=== PATIENT | female | born 1980 | race Caucasian/White ===

== ENCOUNTER 2019-10-08 17:12 | Emergency (ER) | payer OTHER, SELFPAY ==
[2019-10-08 17:28] VITALS: BP 154/98; PULSE 95; RESP 20; TEMP 36.4; O2SAT 94; BMI 51.2
--- NOTE | 2019-10-08 17:34 | XR_ITS ---
WS: [id number] Portable AP upright chest, 10/08/2019 Clinical Data: chest pain Comparison: Portable chest, 07/12/2019. Findings: No nodules, masses or effusions are seen. The heart is slightly enlarged. The pulmonary vas cularity is not increased. No pneumonia or pneumothorax is seen. Minimal patchy basilar atelectasis i s seen. XR/XR chest 1V portable [id number] Impression: Mild cardiomegaly and minimal bibasilar atelectasis.
--- NOTE | 2019-10-08 17:34 | ECG_ITS ---
Measurements Intervals [place] Rate: 98 P: 34 NE: 176 QRS: 41 QRSD: 103 T: 40 QT: 357 QTc: 456 SINUS RHYTHM LOW QRS VOLTAGE IN PRECORDIAL LEADS [QRS DEFLECTION < 1.0 mV IN CHEST LEADS] Compared to ECG 07/13/2019 04:00:02 Low QRS voltage now present Electronically Signed On 10-08-2019 20:07:28 MANUFACTURING SUPERVISOR 2ND SHIFT by Snehal House M.D. [email or web address]
[2019-10-08 18:03] LABS: Basophils # 0.1 10^3/uL (0.0-0.1); Basophils % 0.8 %; Eosinophils # 0.3 10^3/uL (0.0-0.8); Eosinophils % 1.6 %; Hematocrit 42.9 % (37.0-47.0); Hemoglobin 13.9 g/dL (11.5-15.3); Lymphocytes # 3.2 10^3/uL (0.8-4.8); Lymphocytes % 20.7 %; Mean Corpuscular HGB Conc 32.4 g/dL (30.0-36.0); Mean Corpuscular Hemoglobin 27.1 pg (28.0-34.0); Mean Corpuscular Volume 83.6 fL (81-99); Mean Platelet Volume 10.6 fL (7.4-10.4); Monocytes # 0.9 10^3/uL (0.2-0.9); Monocytes % 5.6 %; Neutrophils # 10.9 10^3/uL (1.8-7.7); Neutrophils % 69.8 %; Nucleated Red Blood Cells % 0 %; Platelet Count 364 10^3/cmm (130-400); Red Blood Count 5.13 10^6/uL (4.1-5.3); Red Cell Distribution Width 13.3 % (12.1-15.1); White Blood Count 15.7 10^3/uL (4.0-10.0)
[2019-10-08 18:18] LABS: Anion Gap 18.8 (5-19); Blood Urea Nitrogen 15 mg/dL (6-20); Calcium 10.2 mg/dL (8.5-10.5); Carbon Dioxide 22 mmol/L (22-29); Chloride 98 mmol/L (98-107); Creatinine Clr Calc Pharmacy 151.2489; Glomerular Filtration Rate 94.2 mL/min (90-130); Glucose 155 mg/dL (65-115); Osmolality Calculated 279 mOsm/kg (285-295); Potassium 3.8 mmol/L (3.5-5.1); Sodium 135 mmol/L (136-145)
[2019-10-08 18:20] LABS: Troponin(5th) Baseline 6 ng/mL (0-10)
--- NOTE | 2019-10-08 19:34 | ECG_ITS ---
Measurements Intervals [place] Rate: 77 P: 33 CT: 189 QRS: 45 QRSD: 101 T: 46 QT: 387 QTc: 440 SINUS RHYTHM LOW QRS VOLTAGE IN PRECORDIAL LEADS [QRS DEFLECTION < 1.0 mV IN CHEST LEADS] Compared to ECG 10/08/2019 17:26:08 No significant changes Electronically Signed On 10-09-2019 20:04:23 CASE MANAGEMENT COORDINATOR by Prachi Jimenes M.D. [email or web address]
[2019-10-08 20:08] LABS: Troponin 5 2HR Delta 0 ABS# (0-10)
== END 2019-10-08 20:30 | disposition left against medical advice (07) ==
LOC: ER 17:27
PROVIDERS: Emergency Provider Emergency Medicine; Family Provider Family Medicine
DX: Z53.21 Procedure and treatment not carried out due to patient leaving prior to being seen by health care provider (principal)
CPT/HCPCS: 36415; 71045; 80048; 84484; 85025; 93005; 99282; 99283

== ENCOUNTER 2019-12-05 10:19 | Outpatient (CLI) | payer OTHER, SELFPAY ==
--- NOTE | 2019-12-05 11:00 | MM_ITS ---
WS: [id number] BILATERAL DIGITAL DIAGNOSTIC MAMMOGRAM MAMMOGRAPHY WITH CAD CLINICAL INFORMATION: / 6 MO FOLLOW UP CALCS,CYSTS HISTORY: Six-month follow-up COMPARISON: June 06, 2019 TECHNIQUE: Bilateral CC, MLO, and ML views. FINDINGS: Scattered fibroglandular densities bilaterally. A few stable intramammary lymph nodes and well-circum scribed oval densities right breast. Lucent centered calcifications. Left breast is unchanged and unremarkable. Ultrasound is pending. ULTRASOUND BREAST RIGHT TECHNIQUE: Ultrasound right breast focused area of concern. CLINICAL INFORMATION: / 6 MO FOLLOW UP CALCS,CYSTS COMPARISON: June 06, 2019 FINDINGS: Ultrasound right breast at the 12:00 position with a hypoechoic cyst measuring 2.7 x 3.0 x 3.0 mm. Th is is unchanged in appearance since the prior examination. Additional smaller tiny cystic lesions con sistent with fibrocystic change. No suspicious lesions. No lesions to target for biopsy. MM/[place] [id number] IMPRESSION: BI-RADS: 2-Benign FOLLOW UP: 1 Year Follow-up Recommend return to annual screening mammography.
--- NOTE | 2019-12-05 11:15 | US_ITS ---
WS: [id number] BILATERAL DIGITAL DIAGNOSTIC MAMMOGRAM MAMMOGRAPHY WITH CAD CLINICAL INFORMATION: / 6 MO FOLLOW UP CALCS,CYSTS HISTORY: Six-month follow-up COMPARISON: June 06, 2019 TECHNIQUE: Bilateral CC, MLO, and ML views. FINDINGS: Scattered fibroglandular densities bilaterally. A few stable intramammary lymph nodes and well-circum scribed oval densities right breast. Lucent centered calcifications. Left breast is unchanged and unremarkable. Ultrasound is pending. ULTRASOUND BREAST RIGHT TECHNIQUE: Ultrasound right breast focused area of concern. CLINICAL INFORMATION: / 6 MO FOLLOW UP CALCS,CYSTS COMPARISON: June 06, 2019 FINDINGS: Ultrasound right breast at the 12:00 position with a hypoechoic cyst measuring 2.7 x 3.0 x 3.0 mm. Th is is unchanged in appearance since the prior examination. Additional smaller tiny cystic lesions con sistent with fibrocystic change. No suspicious lesions. No lesions to target for biopsy. US/US breast RT limited* [id number] IMPRESSION: BI-RADS: 2-Benign FOLLOW UP: 1 Year Follow-up Recommend return to annual screening mammography.
== END 2019-12-05 10:20 | disposition home or self-care (01) ==
LOC: RADSHAW 10:19
PROVIDERS: Family Provider Family Medicine; PCP Family Medicine; Visit Provider Family Medicine
DX: R92.1 Mammographic calcification found on diagnostic imaging of breast (principal)
CPT/HCPCS: 76642; 77066

== ENCOUNTER 2019-12-24 19:19 | Emergency (ER) | payer OTHER, SELFPAY ==
[2019-12-24 19:31] VITALS: BP 170/106; PULSE 100; RESP 16; TEMP 36.9; O2SAT 96; BMI 48.0
--- NOTE | 2019-12-24 19:46 | XR_ITS ---
WS: [id number] LEFT SHOULDER: 3 VIEW(S) TECHNIQUE: Internal and external rotation with Y view. HISTORY: injury COMPARISON: None available. There is a tiny amount of calcification lateral to the humeral head. No fractures or dislocation. Deisy y minimal narrowing of the AC joint. No displacement. Visualized LEFT upper lung is clear. XR/XR shoulder LT min 2V* [id number] IMPRESSION: Suspect mild rotator cuff calcific tendinitis.
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
[2019-12-24] MEDS: ketorolac 60 mg/2 mL INJ IM (19:55)
[2019-12-24] MEDS: HYDROcodone-acetaminophen 5-325 mg Tablet 1 TAB PO (19:55)
[2019-12-24 20:12] VITALS: BP 176/102; PULSE 90; RESP 16; TEMP 37.1; O2SAT 94
== END 2019-12-24 20:35 | disposition home or self-care (01) ==
PROVIDERS: Emergency Provider Nurse Practitioner Family; Family Provider Family Medicine; PCP Family Medicine
DX: M25.512 Pain in left shoulder (principal); F17.210 Nicotine dependence, cigarettes, uncomplicated
CPT/HCPCS: 12345; 73030; 96372; 99281; 99283; J1885

== ENCOUNTER 2020-02-23 19:52 | Emergency (ER) | payer OTHER, SELFPAY ==
[2020-02-23 20:05] VITALS: BP 134/77; PULSE 94; RESP 16; TEMP 36.4; O2SAT 97; BMI 48.2
--- NOTE | 2020-02-23 20:22 | XRR_ITS ---
PROCEDURE INFORMATION: Exam: XR Right Knee Exam date and time: 02/23/2020 9:42 PM Age: 39 years old Clinical indication: Injury or trauma; Fall; Initial encounter; Laceration; Patella or knee; Right; Without foreign body; Additional info: Right knee injury TECHNIQUE: Imaging protocol: XR Right knee. Views: 3 views. COMPARISON: No relevant prior studies available. FINDINGS: Bones/joints: Normal. Soft tissues: Normal. No joint effusion. No gas in the soft tissues XR/XR knee RT 3V* [id number] IMPRESSION: Unremarkable.
[2020-02-23 21:37] VITALS: PULSE 62
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
[2020-02-23] MEDS: tetanus-diphtheria tox (adult) 0.5 mL SDV IM (21:58)
[2020-02-23 23:07] VITALS: BP 148/94; PULSE 80; RESP 18; O2SAT 97
== END 2020-02-23 23:08 | disposition home or self-care (01) ==
PROVIDERS: Emergency Provider Nurse Practitioner Family; PCP Family Medicine
DX: S80.211A Abrasion, right knee, initial encounter (principal); S83.91XA Sprain of unspecified site of right knee, initial encounter; F17.210 Nicotine dependence, cigarettes, uncomplicated; W16.122A Fall into natural body of water striking bottom causing other injury, initial encounter; Z23 Encounter for immunization
CPT/HCPCS: 12345; 29515; 73562; 90471; 90714; 99281; 99283

== ENCOUNTER 2020-04-08 16:10 | Emergency (ER) | payer OTHER, SELFPAY ==
[2020-04-08 16:43] VITALS: BP 139/85; PULSE 97; RESP 15; TEMP 36.6; O2SAT 97; BMI 46.5
[2020-04-08 16:48] VITALS: RESP 18
--- NOTE | 2020-04-08 17:58 | W.ED.SKABFB ---
HPI - Skin/Abscess/Foreign Bdy General: Chief complaint: Skin/Abscess/Foreign Body Stated complaint: possible shingles, rash Time Seen by Provider: 04/08/20 17:31 Source: patient Mode of arrival: ambulatory Limitations: no limitations History of Present Illness: HPI narrative: Patient is a 39-year-old female who presents to ED today with complaints of a rash to her torso that began today. Patient tells me she has had a similar rash twice previously and diagnosed with shingles. Patient tells me the rash looks and feels identical to previous episodes. She states if left untreated, by day 3 she will break out in an extremely painful blistering rash. complaint: rash Onset (ago): hour(s) Tetanus up to date: yes Severity: moderate Quality: burning Pain Consistency: constant Relieving factors: none Exacerbating factors: none Context: none Associated symptoms: Reports no associated symptoms; Deny chills or fever(s) Treatments prior to arrival: none Review of Systems Const: Denies: fever(s), chills, body aches, fatigue or malaise ENMT: Denies: throat pain, odynophagia or oral sores Card: Denies: chest pain Resp: Denies: dyspnea GI: Denies: abdominal pain Musc: Denies: neck pain, back pain, extremity pain, extremity swelling, joint pain or joint swelling Skin/Breast: Reports: rash Neuro: Denies: headache(s), numbness in extremities, weakness in extremities or sensory changes PFS ED PFSH: Social History (Updated 04/08/20 @ 16:50 by Pierre Villar RN) Smoking and tobacco status: heavy tobacco smoker Alcohol intake: never Substance/Drug Use: never Female Reproductive History: Date of last menstrual period: 02/27/20 Physical Exam Const: COMMON NORMALS: no acute distress, patient oriented x3, no limitations and alert NUTRITIONAL APPEARANCE: obese Neuro: COMMON NORMALS: patient oriented x3 SENSORIUM/ORIENTATION: Yes alert Skin: OTHER: Patient has patches of erythema that wrap around her lower torso (back and abdomen); lesions do cross midline; erythema patches do appear to contain micro-vesicles when examined closely Course Vital Signs: Vital signs: Vital Signs Temperature 97.9 F 04/08/20 16:43 Pulse Rate 97 04/08/20 16:43 Respiratory Rate 18 04/08/20 18:26 Blood Pressure 139/85 04/08/20 16:43 Pulse Oximetry 97 04/08/20 16:43 MDM - Skin/Abscess/Foreign Bdy MDM Narrative: Medical decision making narrative: Patient states she has had identical rash previously successfully treated with antivirals and steroids. We did discuss how it is very unlikely for a patient to have shingles 3 times and for the rash to cross the midline. I discussed with her if rash begins to become vesicular, it could be of benefit to have a viral culture performed to confirm a diagnosis of shingles. Also taking pictures as/if rash progresses. Patient verbalizes understanding. Will go ahead and write for her steroids/antivirals as these have worked previously. Discharge Plan Discharge Patient Disposition: Home Clinical Impression: Rash and nonspecific skin eruption Condition: Stable Prescriptions: No Action levothyroxine 200 mcg tablet 200 mcg PO DAILY RF: 0 escitalopram oxalate 20 mg tablet 20 mg PO DAILY RF: 0 fluticasone propionate 50 mcg/actuation spray,suspension 50 mcg INTRANASAL DAILY RF: 0 hydroxyzine pamoate 25 mg capsule 25 mg PO DAILY RF: 0 ipratropium-albuterol 0.5 mg-3 mg(2.5 mg base)/3 mL solution for nebulization See Rx Instructions .ROUTE .COMPLEX PRN (Reason: Shortness Of Breath) RF: 0 lamotrigine 100 mg tablet 100 mg PO DAILY RF: 0 metformin 500 mg tablet extended release 24 hr 500 mg PO DAILY RF: 0 omeprazole 20 mg capsule,delayed release(DR/EC) 20 mg PO DAILY RF: 0 levothyroxine 75 mcg tablet 75 mcg PO DAILY RF: 0 lisinopril 20 mg Tablet 20 mg PO DAILY RF: 0 risperidone 1 mg tablet 1 mg PO DAILY RF: 0 Tradjenta 5 mg Tablet 5 mg PO DAILY RF: 0 Ozempic 0.25 mg or 0.5 mg(2 mg/1.5 mL) pen injector 0.25 mg SUBCUT Q7D RF: 0 Tylenol 325 mg Tablet 325 - 650 mg PO QID PRN (Reason: Pain) RF: 0 Benadryl Allergy 25 mg Tablet 25 mg PO TID PRN (Reason: Itching) RF: 0 ibuprofen 200 mg Tablet 200 - 400 mg PO Q6H PRN (Reason: Pain) RF: 0 Discharge Orders: Discharge Order (Routine); Ordered 04/08/20 Ordered By: Roxanne Dumont Referrals: Therese Garcia MD [Primary Care Provider] - Patient Instructions: Herpes Zoster (ED), Acute Rash (ED), Rash - Nonspecific, Shingles Activity Restrictions/Additional Instructions: As discussed please followup with your primary care provider. We spoke about possible obtaining a viral culture of blisters to ensure we are treating you appropriately. Discharge Date/Time: 04/08/20 18:26 Coding Level of Care Code ED Hospice/Home Health Aide for Chg Fwd Exam Problem Focused
[2020-04-08 18:26] VITALS: RESP 18
== END 2020-04-08 18:26 | disposition home or self-care (01) ==
PROVIDERS: Emergency Provider Physician Assistant; PCP Family Medicine
DX: R21 Rash and other nonspecific skin eruption (principal); F17.210 Nicotine dependence, cigarettes, uncomplicated
CPT/HCPCS: 12345; 99281

== ENCOUNTER 2020-04-29 14:27 | Emergency (ER) | payer OTHER, SELFPAY ==
[2020-04-29 14:41] VITALS: BP 197/113; PULSE 92; RESP 16; TEMP 36.4; O2SAT 97; BMI 48.2
--- NOTE | 2020-04-29 15:13 | ED_ITS ---
HPI - Chest Pain General: Chief Complaint: Chest Pain Stated Complaint: chest tightness/ HTN Time Seen by Provider: 04/29/20 15:02 History of Present Illness: HPI narrative: 39-year-old female presents to the emergency room complaining of chest pain with a headache and elevated blood pressure. She has chest pain and tightness across her chest mostly centralized reproducible with palpation across the sternum at the level of the breast. She usually takes her lisinopril at night. She has notable heartburn he states episode today was brought about by stress. MD complaint: chest pain and chest discomfort Pertinent past history: other (Hypertension) Onset (ago): hour(s) Timing of current episode: episodic Prior episodes: Yes Onset: during rest Pain location: left chest Pain radiation: none Severity: moderate Quality: tightness Relieving factors: rest Exacerbating factors: nothing Context: other (Emotional stress) Associated symptoms: Reports nausea; Deny abdominal pain, diaphoresis, dyspnea, fever(s), leg edema, palpitations, sense of impending doom, syncope or vomiting Treatment prior to arrival: none Review of Systems Const: Denies: fever(s) or diaphoresis ENMT: Denies: throat pain, ear or mastoid pain, nasal discharge or nasal congestion Card: Denies: palpitations or syncope Resp: Denies: dyspnea GI: Reports: nausea; Denies: abdominal pain or vomiting : Denies: flank pain, difficulty voiding, dysuria, urinary frequency or urinary urgency Skin/Breast: Denies: rash or pruritus PFSH ED PFSH: Medical History (Updated 04/29/20 @ 17:39 by David Wallace DO) Depression Diabetes mellitus Hypertension Hypothyroid Mandibular fracture Surgical History (Updated 04/29/20 @ 15:19 by David Wallace DO) H/O thyroidectomy Previous section S/P breast lumpectomy S/P cholecystectomy S/P tonsillectomy and adenoidectomy Social History (Updated 04/08/20 @ 16:50 by Pierre Villar RN) Smoking and tobacco status: heavy tobacco smoker Alcohol intake: never Female Reproductive History: Date of last menstrual period: 02/27/20 Physical Exam Const: COMMON NORMALS: no acute distress GENERAL APPEARANCE: cooperative and comfortable ORIENTATION/CONSCIOUSNESS: Yes awake, Yes oriented to person, Yes oriented to place and Yes oriented to time HENMT: COMMON NORMALS: normocephalic and atraumatic HEAD & SCALP: normocephalic and atraumatic Eye: COMMON NORMALS: Equal, round and reactive pupils present, EOMs intact b ilaterally, conjunctivae normal and no scleral icterus CONJUNCTIVA: Yes conjunctivae normal PUPIL: Yes Equal, round and reactive pupils present Neck/C-Spine: COMMON NORMALS: full ROM, no lymphadenopathy, supple and no JVD Lymph: LYMPHATIC: no lymphadenopathy noted and no lymphedema noted Chest: OTHER: Reproducible chest pain with palpation Resp: COMMON NORMALS: normal respiratory effort, No retractions, No use of accessory muscles and clear to auscultation bilaterally AUSCULTATION: clear to auscultation bilaterally Cardio: COMMON NORMALS: no JVD, regular rate, regular rhythm and No murmurs present (Cardio) RATE: regular rate RHYTHM: regular rhythm GI: COMMON NORMALS: Soft to palpation and No hepatosplenomegaly present AUSCULTATION: Yes normoactive bowel sounds PALPATION: Yes Soft to palpation, No Tenderness to palpation present (GI), No Guarding due to palpation present (GI) and Yes No hepatosplenomegaly present Extremity: COMMON NORMALS: normal to inspection, capillary refill normal, no clubbing, cyanosis or edema, no calf tenderness and no pedal edema Neuro: SENSORIUM/ORIENTATION: Yes oriented to person, Yes oriented to place and Yes oriented to time Skin: COMMON NORMALS: no rashes or lesions noted GENERAL SKIN EXAM: no rashes or lesions noted Course Vital Signs: Vital signs: Vital Signs Temperature 97.5 F L 04/29/20 14:41 Pulse Rate 78 04/29/20 17:52 Respiratory Rate 18 04/29/20 17:52 Blood Pressure 156/99 04/29/20 17:52 Pulse Oximetry 96 04/29/20 17:52 MDM - Chest Pain MDM Narrative: Medical decision making narrative: Follow-up with your primary care doctor within 3 to 5 days. We will add the amlodipine at low-dose recheck with primary care doctor for efficacy in the amlodipine. Lab Data: Labs: Lab Results 04/29/20 04/29/20 04/29/20 Range/Units 15:49 15:49 15:49 WBC 15.2 H (4.0-10.0) 10^3/ uL RBC 4.89 (4.1-5.3) 10^6/u L Hgb 13.6 (11.5-15.3) g/dL Hct 41.7 (37.0-47.0) % MCV 85.3 (81-99) fL MCH 27.8 L (28.0-34.0) pg MCHC 32.6 (30.0-36.0) g/dL RDW 14.3 (12.1-15.1) % Plt Count 326 (130-400) 10^3/c mm MPV 10.3 (7.4-10.4) fL Neut % (Auto) 72.6 % Lymph % (Auto) 16.5 % [place] % (Auto) 5.7 % Eos % (Auto) 2.4 % Baso % (Auto) 1.1 % Neut # (Auto) 11.04 H (1.8-7.7) 10^3/u L Lymph # (Auto) 2.5 (0.8-4.8) 10^3/u L [place] # (Auto) 0.9 (0.2-0.9) 10^3/u L Eos # (Auto) 0.4 (0.0-0.8) 10^3/u L Baso # (Auto) 0.2 H (0.0-0.1) 10^3/u L Nucleated RBC % (a uto) 0 % Nucleated RBCs # 0.0 /100WBC PT (12.1-14.9) SECO NDS INR (0.8-1.2) APTT (23.9-36.7) SECO NDS Sodium 137 (136-145) mmol/L Potassium 4.2 (3.5-5.1) mmol/L Chloride 102 (98-107) mmol/L Carbon Dioxide 23 (22-29) mmol/L Anion Gap 16.2 (5-19) BUN 10 (6-20) mg/dL Creatinine 0.7 (0.5-0.9) mg/dL GFR Calculation 94.2 (90-130) mL/min Glucose 107 (65-115) mg/dL Calculated Osmolal ity 280 L (285-295) mOsm/k g Calcium 9.9 (8.5-10.5) mg/dL Total Bilirubin 0.2 (0.15-1.2) mg/dL AST 21 (0-32) U/L ALT 39 H (0-33) U/L Alkaline Phosphata se 71 (35-105) IU/L Troponin T Baselin e 6 (0-10) ng/L Total Protein 7.7 (6.6-8.7) g/dL Albumin 4.4 (3.5-5.2) g/dL Globulin 3.3 (1.3-4.6) g/dL 04/29/20 Range/Units 15:49 WBC (4.0-10.0) 10^3/ uL RBC (4.1-5.3) 10^6/u L Hgb (11.5-15.3) g/dL Hct (37.0-47.0) % MCV (81-99) fL MCH (28.0-34.0) pg MCHC (30.0-36.0) g/dL RDW (12.1-15.1) % Plt Count (130-400) 10^3/c mm MPV (7.4-10.4) fL Neut % (Auto) % Lymph % (Auto) % [place] % (Auto) % Eos % (Auto) % Baso % (Auto) % Neut # (Auto) (1.8-7.7) 10^3/u L Lymph # (Auto) (0.8-4.8) 10^3/u L [place] # (Auto) (0.2-0.9) 10^3/u L Eos # (Auto) (0.0-0.8) 10^3/u L Baso # (Auto) (0.0-0.1) 10^3/u L Nucleated RBC % (a uto) % Nucleated RBCs # /100WBC PT 12.90 (12.1-14.9) SECO NDS INR 0.95 (0.8-1.2) APTT 29.6 (23.9-36.7) SECO NDS Sodium (136-145) mmol/L Potassium (3.5-5.1) mmol/L Chloride (98-107) mmol/L Carbon Dioxide (22-29) mmol/L Anion Gap (5-19) BUN (6-20) mg/dL Creatinine (0.5-0.9) mg/dL GFR Calculation (90-130) mL/min Glucose (65-115) mg/dL Calculated Osmolal ity (285-295) mOsm/k g Calcium (8.5-10.5) mg/dL Total Bilirubin (0.15-1.2) mg/dL AST (0-32) U/L ALT (0-33) U/L Alkaline Phosphata se (35-105) IU/L Troponin T Baselin e (0-10) ng/L Total Protein (6.6-8.7) g/dL Albumin (3.5-5.2) g/dL Globulin (1.3-4.6) g/dL Discharge Plan Discharge Patient Disposition: Home Clinical Impression: Pneumonitis, HTN (hypertension), benign Condition: Stable Prescriptions: New doxycycline hyclate 100 mg capsule 100 mg PO BID 10 Days Qty: 20 RF: 0 amlodipine 2.5 mg tablet 2.5 mg PO DAILY Qty: 20 RF: 0 No Action levothyroxine 200 mcg tablet 200 mcg PO DAILY RF: 0 escitalopram oxalate 20 mg tablet 20 mg PO DAILY RF: 0 fluticasone propionate 50 mcg/actuation spray,suspension 50 mcg INTRANASAL DAILY RF: 0 hydroxyzine pamoate 25 mg capsule 25 mg PO DAILY RF: 0 ipratropium-albuterol 0.5 mg-3 mg(2.5 mg base)/3 mL solution for nebulization See Rx Instructions .ROUTE .COMPLEX PRN (Reason: Shortness Of Breath) RF: 0 lamotrigine 100 mg tablet 100 mg PO BEDTIME RF: 0 metformin 500 mg tablet extended release 24 hr 500 mg PO DAILY RF: 0 omeprazole 20 mg capsule,delayed release(DR/EC) 20 mg PO DAILY RF: 0 levothyroxine 75 mcg tablet 75 mcg PO DAILY RF: 0 lisinopril 20 mg Tablet 20 mg PO DAILY RF: 0 risperidone 1 mg tablet 1 mg PO DAILY RF: 0 Tradjenta 5 mg Tablet 5 mg PO DAILY RF: 0 Ozempic 0.25 mg or 0.5 mg(2 mg/1.5 mL) pen injector 0.25 mg SUBCUT Q7D RF: 0 acetaminophen [Tylenol] 325 mg Tablet 325 - 650 mg PO QID PRN (Reason: Pain) RF: 0 diphenhydramine HCl [Benadryl Allergy] 25 mg Tablet 25 mg PO TID PRN (Reason: Itching) RF: 0 ibuprofen 200 mg Tablet 200 - 400 mg PO Q6H PRN (Reason: Pain) RF: 0 Discharge Orders: Discharge Order (Routine); Ordered 04/29/20 Ordered By: David Wallace Referrals: Therese Garcia MD [Primary Care Provider] - Discharge Diet: Usual diet Discharge Activity: Increase activity as tolerated Activity Restrictions/Additional Instructions: Aloe up with your primary care doctor for recheck on her blood pressure within 1 week Discharge Date/Time: 04/29/20 17:55 Coding 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
--- NOTE | 2020-04-29 15:25 | XR_ITS ---
WS: [id number] PORTABLE CHEST HISTORY: dyspnea/cough COMPARISON: 10/08/2019 Mild elevation of the LEFT hemidiaphragm is stable. No pneumonia. Normal vasculature. No pleural effu toyin or pneumothorax. Cardiac size: Normal. Mediastinum/Aorta: Normal mediastinum. No osseous abnormality seen. XR/XR chest 1V portable [id number] IMPRESSION: Unremarkable portable chest.
--- NOTE | 2020-04-29 15:25 | ECG_ITS ---
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 Measurements Intervals [place] Rate: 94 P: 41 VA: 174 QRS: 45 QRSD: 94 T: 28 QT: 354 QTc: 444 Interpretive Statements SINUS RHYTHM LOW QRS VOLTAGE IN PRECORDIAL LEADS Compared to ECG 10/08/2019 19:48:27 No significant changes Electronically Signed On 04-29-2020 20:34:30 CDT by Greer Valencia M.D. [id number]
[2020-04-29 15:52] VITALS: BP 153/90; PULSE 81; RESP 18; O2SAT 93
[2020-04-29 15:59] LABS: Basophils # 0.2 10^3/uL (0.0-0.1); Basophils % 1.1 %; Eosinophils # 0.4 10^3/uL (0.0-0.8); Eosinophils % 2.4 %; Hematocrit 41.7 % (37.0-47.0); Hemoglobin 13.6 g/dL (11.5-15.3); Lymphocytes # 2.5 10^3/uL (0.8-4.8); Lymphocytes % 16.5 %; Mean Corpuscular HGB Conc 32.6 g/dL (30.0-36.0); Mean Corpuscular Hemoglobin 27.8 pg (28.0-34.0); Mean Corpuscular Volume 85.3 fL (81-99); Mean Platelet Volume 10.3 fL (7.4-10.4); Monocytes # 0.9 10^3/uL (0.2-0.9); Monocytes % 5.7 %; Neutrophils # 11.04 10^3/uL (1.8-7.7); Neutrophils % 72.6 %; Nucleated Red Blood Cells % 0 %; Platelet Count 326 10^3/cmm (130-400); Red Blood Count 4.89 10^6/uL (4.1-5.3); Red Cell Distribution Width 14.3 % (12.1-15.1); White Blood Count 15.2 10^3/uL (4.0-10.0)
--- NOTE | 2020-04-29 16:11 | CTR_ITS ---
PROCEDURE INFORMATION: Exam: CT Angiography Chest With Contrast Exam date and time: 04/29/2020 4:45 PM Age: 39 years old Clinical indication: Dyspnea; Chest pain; Type not specified; Prior surgery; Surgery type: Gb, lumpectomy; Additional info: Dyspena and chest pain TECHNIQUE: Imaging protocol: Computed tomographic angiography of the chest with intravenous contrast. 3D rendering (Not supervised by radiologist): MIP and/or 3D reconstructed images were created by the technologist. Radiation optimization: All CT scans at this facility use at least one of these dose optimization techniques: automated exposure control; mA and/or kV adjustment per patient size (includes targeted exams where dose is matched to clinical indication); or iterative reconstruction. Contrast material: OMNI 350; Contrast volume: 66 ml; Contrast route: INTRAVENOUS (IV); COMPARISON: CTA Chest-Pulmonary Emb [id number] 07/13/2019 12:55 AM RADIATION DOSE METRICS: Total DLP (mGy-cm): 574.93 FINDINGS: Pulmonary arteries: There is no pulmonary embolus. Aorta: Unremarkable. No aortic aneurysm. No aortic dissection. Lungs: There is mild ground-glass opacity in the lung bases compatible with mild pneumonitis, edema or atelectasis. No lobar consolidation. Pleural space: Unremarkable. No pneumothorax. No pleural effusion. Heart: Unremarkable. No cardiomegaly. No pericardial effusion. Mediastinal space: A small hiatal hernia is present. Lymph nodes: There is a small right perifissural lymph node. Liver: There is a diffuse decrease in hepatic parenchymal density, consistent with fatty infiltration. There is hepatomegaly. Gallbladder and bile ducts: There has been a cholecystectomy. Bones/joints: Unremarkable. No acute fracture. Soft tissues: Unremarkable. CT/CT angio chest PE protcl [id number] IMPRESSION: 1. There is no pulmonary embolus. 2. There is mild ground-glass opacity in the lung bases compatible with mild pneumonitis, edema or atelectasis. Radiation Dose CTDIVOL = (mGy): DLP = 574.93 (mGy-cm)
[2020-04-29 16:13] LABS: Alanine Aminotransferase 39 U/L (0-33); Albumin Level 4.4 g/dL (3.5-5.2); Alkaline Phosphatase 71 IU/L (35-105); Anion Gap 16.2 (5-19); Aspartate Amino Transferase 21 U/L (0-32); Blood Urea Nitrogen 10 mg/dL (6-20); Calcium 9.9 mg/dL (8.5-10.5); Carbon Dioxide 23 mmol/L (22-29); Chloride 102 mmol/L (98-107); Creatinine Clr Calc Pharmacy 150.8097; Globulin 3.3 g/dL (1.3-4.6); Glomerular Filtration Rate 94.2 mL/min (90-130); Glucose 107 mg/dL (65-115); Osmolality Calculated 280 mOsm/kg (285-295); Potassium 4.2 mmol/L (3.5-5.1); Sodium 137 mmol/L (136-145); Total Bilirubin 0.2 mg/dL (0.15-1.2); Total Protein 7.7 g/dL (6.6-8.7)
[2020-04-29 16:16] LABS: Troponin(5th) Baseline 6 ng/L (0-10)
[2020-04-29 16:21] LABS: INR 0.95 (0.8-1.2)
[2020-04-29 16:22] LABS: Partial Thromboplastin Time 29.6 SECONDS (23.9-36.7)
[2020-04-29] MEDS: iohexol 350 mg/mL 100 mL Btl IV (16:53)
[2020-04-29 17:52] VITALS: BP 156/99; PULSE 78; RESP 18; O2SAT 96
== END 2020-04-29 17:55 | disposition home or self-care (01) ==
PROVIDERS: Emergency Provider Family Medicine; PCP Family Medicine
DX: J18.9 Pneumonia, unspecified organism (principal); I10 Essential (primary) hypertension; E11.9 Type 2 diabetes mellitus without complications; F17.210 Nicotine dependence, cigarettes, uncomplicated
CPT/HCPCS: 12345; 36415; 71045; 71275; 80053; 84484; 85025; 85610; 85730; 93005; 99281; 99283; Q9967

== ENCOUNTER → 2020-06-13 12:44 | Outpatient (BNVA) | payer OTHER, SELFPAY | PROVIDERS: PCP Family Medicine; Visit Provider Nurse Practitioner Family | DX: Z11.59 Encounter for screening for other viral diseases (principal); Z20.828 Contact with and (suspected) exposure to other viral communicable diseases | CPT/HCPCS: 87635 ==

== ENCOUNTER 2020-08-25 16:09 | Outpatient (CLI) | payer OTHER, SELFPAY ==
--- NOTE | 2020-08-25 16:54 | XRR_ITS ---
PROCEDURE INFORMATION: Exam: XR Right Hip with Pelvis when Performed Exam date and time: 08/25/2020 5:08 PM Age: 40 years old Clinical indication: Right hip; Patient HX: C/O RT hip pain; Additional info: RT. Hip pain TECHNIQUE: Imaging protocol: XR Right hip with pelvis when performed. Views: 1 view. COMPARISON: CT abdomen pelvis w con* [id number] 06/30/2016 7:05 PM FINDINGS: Bones/joints: Unremarkable. No acute fracture. Soft tissues: Unremarkable. XR/XR hip RT 2-3V wo/w pel* [id number] IMPRESSION: No acute findings.
== END 2020-08-25 16:10 | disposition home or self-care (01) ==
PROVIDERS: PCP Family Medicine; Visit Provider Family Medicine
DX: M25.551 Pain in right hip (principal)
CPT/HCPCS: 73502

== ENCOUNTER 2020-09-03 08:29 | Outpatient (CLI) | payer OTHER, SELFPAY ==
--- NOTE | 2020-09-03 08:47 | MR_ITS ---
WS: [id number] MRI RIGHT HIP NONCONTRAST TECHNIQUE: Axial T1, axial T2 fat sat, coronal T1, coronal STIR, sagittal T2 fat sat, sagittal T1, an d sagittal T2 fat sat, of both hips. CLINICAL INFORMATION: RIGHT HIP PAIN AFTER FALL COMPARISON: None. FINDINGS: Right hip is normal in appearance. No acute fractures. No subchondral edema. Normal right femoral nec k and proximal femoral shaft. No evidence of femoral head collapse or avascular necrosis. Right aceta bulum is normal in appearance. Left hip is normal in appearance. Normal bone marrow signal in the low er lumbar spine,bony pelvis and sacrum. Normal visualized pubic rami. Pelvic soft tissues appear norm al. MR/MR hip RT wo con* [id number] IMPRESSION: 1. Normal right hip. No acute fractures. 2. Normal bone marrow signal in the bony pelvis and sacrum. 3. Normal visualized soft tissues.
== END 2020-09-03 08:30 | disposition home or self-care (01) ==
PROVIDERS: PCP Family Medicine; Visit Provider Family Medicine
DX: M25.551 Pain in right hip (principal)
CPT/HCPCS: 73721

== ENCOUNTER 2020-11-23 19:43 | Emergency (ER) | payer OTHER, SELFPAY ==
[2020-11-23 19:55] VITALS: BP 169/97; PULSE 90; RESP 22; TEMP 36.5; O2SAT 95; BMI 49.9
== END 2020-11-23 21:11 | disposition left against medical advice (07) ==
PROVIDERS: Emergency Provider Family Medicine; PCP Family Medicine
DX: Z53.21 Procedure and treatment not carried out due to patient leaving prior to being seen by health care provider (principal)

== ENCOUNTER 2020-12-11 10:57 | Emergency (ER) | payer OTHER, SELFPAY ==
[2020-12-11] VITALS (7 sets, daily range): BP systolic 115–128; BP diastolic 84–91; PULSE 82–114; RESP 20–22; TEMP 36.4; O2SAT 90–97; BMI 49.9
--- NOTE | 2020-12-11 11:49 | W.ED.ABDPA2 ---
HPI - Abdominal Pain General: Chief Complaint: Abdominal Pain Stated Complaint: AB PAIN Time Seen by Provider: 12/11/20 11:19 History of Present Illness: HPI narrative: 40-year-old female comes in complaining of suprapubic abdominal pain it is better when she presses on it. She had pain over the last weeks when progressively worse to the point where she is vomiting today she has had some dysuria with it she denies any flank pain she denies any fever she is having her. She is not noticed any hematuria. She denies any vomiting or diarrhea but she is extremely nauseous. States this initially seemed to begin after she did some heavy lifting 3 weeks ago has persisted since then is actually gotten worse. She gets relief by putting mild pressure on the pannus on the right and lifting upward. She concerned about a hernia either umbilical or in the previous section scar. MD elicited complaint: abdominal pain Pertinent past history: none Onset (ago): day(s) Pain Consistency: constant Location: Suprapubic Severity: severe Quality: cramping and stabbing Radiation: LLQ Exacerbating factors: movement Relieving factors: rest Associated Symptoms: Reports anorexia, bloating and GI cramping; Denies belching, change in bowel habits, change in stool character, chills, coffee ground emesis, constipation, diarrhea, dyspepsia, dysuria, excessive flatus, fever(s), heartburn, hematochezia, hematuria, hematemesis, fecal incontinence, loose stools, melena, nausea, poor appetite, syncope and vomiting Related Data: Date of Last Menstrual Period: 09/29/20 Review of Systems Const: Denies: fever(s) or chills ENMT: Denies: throat pain, ear or mastoid pain, nasal discharge or nasal congestion Card: Denies: syncope Resp: Denies: dyspnea, productive cough or non-productive cough GI: Reports: bloating and GI cramping; Denies: nausea, vomiting, hematemesis, coffee ground emesis, heartburn, diarrhea, constipation, belching, excessive flatus, fecal incontinence, change in bowel habits, change in stool character, hematochezia or melena : Denies: dysuria or hematuria Skin/Breast: Denies: rash or pruritus PFSH ED PFSH: Medical History Close exposure to COVID-19 virus Depression Diabetes mellitus Hypertension Hypothyroid Mandibular fracture Surgical History H/O thyroidectomy Previous section S/P breast lumpectomy S/P cholecystectomy S/P tonsillectomy and adenoidectomy Social History Smoking and tobacco status: heavy tobacco smoker Alcohol intake: never Female Reproductive History: Date of last menstrual period: 09/29/20 Physical Exam Const: COMMON NORMALS: no acute distress GENERAL APPEARANCE: cooperative and comfortable ORIENTATION/CONSCIOUSNESS: Yes awake, Yes oriented to person, Yes oriented to place and Yes oriented to time HENMT: COMMON NORMALS: normocephalic, atraumatic and hearing grossly normal bilaterally HEAD & SCALP: normocephalic and atraumatic Neck/C-Spine: COMMON NORMALS: no JVD Resp: COMMON NORMALS: normal respiratory effort, No retractions, No use of accessory muscles and clear to auscultation bilaterally AUSCULTATION: clear to auscultation bilaterally Cardio: COMMON NORMALS: no JVD, regular rate, regular rhythm and No murmurs present (Cardio) RATE: regular rate RHYTHM: regular rhythm GI: COMMON NORMALS: Soft to palpation and No hepatosplenomegaly present AUSCULTATION: Yes normoactive bowel sounds PALPATION: Yes Soft to palpation, No Tenderness to palpation present (GI), No Guarding due to palpation present (GI) and Yes No hepatosplenomegaly present OTHER: Cannot palpate an umbilical hernia. There is a small area of thickening along the lateral aspect of the Pfannenstiel incision on the right. I suspect this is tissue granulation around the suture knot is nonfluctuant and there is no significant finding correlating with it on the CT see the CT report Extremity: COMMON NORMALS: normal to inspection, capillary refill normal, no clubbing, cyanosis or edema, no calf tenderness and no pedal edema Neuro: SENSORIUM/ORIENTATION: Yes oriented to person, Yes oriented to place and Yes oriented to time Skin: COMMON NORMALS: no rashes or lesions noted GENERAL SKIN EXAM: no rashes or lesions noted Course Vital Signs: Vital signs: Vital Signs Temperature 97.5 F L 12/11/20 11:12 Pulse Rate 91 12/11/20 15:34 Respiratory Rate 22 H 12/11/20 15:23 Blood Pressure 128/91 12/11/20 15:34 Pulse Oximetry 91 12/11/20 15:34 MDM - Abdominal Pain MDM Narrative: Medical decision making narrative: Her white count is elevated but the remainder of her labs are pretty unremarkable. She not having a fever but does appear on exam added by her history to be more musculoskeletal in nature. She can get relief with palpation as described above on the right lower quadrant is no sign of acute appendicitis there is no abscess significant liver function abnormality beyond what she has had in the past related to her steatohepatitis which is a known entity. At this point we will go and discharge her home. A long conversation with her and her discharge home with pain medications and will have her follow-up return if she has further problems. No lifting greater than 10 pounds.. Lab Data: Labs: Lab Results 12/11/20 12/11/20 12/11/20 Range/Units 12:02 12:02 12:02 WBC 17.2 H (4.0-10.0) 10^3/ uL RBC 5.46 H (4.1-5.3) 10^6/u L Hgb 15.2 (11.5-15.3) g/dL Hct 46.5 (37.0-47.0) % MCV 85.2 (81-99) fL MCH 27.8 L (28.0-34.0) pg MCHC 32.7 (30.0-36.0) g/dL RDW 13.3 (12.1-15.1) % Plt Count 335 (130-400) 10^3/c mm MPV 10.4 (7.4-10.4) fL Neut % (Auto) 67.2 % Lymph % (Auto) 21.5 % [place] % (Auto) 6.5 % Eos % (Auto) 1.7 % Baso % (Auto) 1.0 % Neut # (Auto) 11.52 H (1.8-7.7) 10^3/u L Lymph # (Auto) 3.7 (0.8-4.8) 10^3/u L [place] # (Auto) 1.1 H (0.2-0.9) 10^3/u L Eos # (Auto) 0.3 (0.0-0.8) 10^3/u L Baso # (Auto) 0.2 H (0.0-0.1) 10^3/u L Nucleated RBC % (a uto) 0 % Nucleated RBCs # 0.0 /100WBC Sodium 130 L (136-145) mmol/L Potassium 4.6 (3.5-5.1) mmol/L Chloride 96 L (98-107) mmol/L Carbon Dioxide 22 (22-29) mmol/L Anion Gap 16.6 (5-19) BUN 9 (6-20) mg/dL Creatinine 0.5 (0.5-0.9) mg/dL GFR Calculation 138.1 H (90-130) mL/min Glucose 153 H (65-115) mg/dL Calculated Osmolal ity 272 L (285-295) mOsm/k g Calcium 9.2 (8.5-10.5) mg/dL Total Bilirubin 0.2 (0.15-1.2) mg/dL AST 35 H (0-32) U/L ALT 47 H (0-33) U/L Alkaline Phosphata se 68 (35-105) IU/L Total Protein 7.6 (6.6-8.7) g/dL Albumin 4.6 (3.5-5.2) g/dL Globulin 3.0 (1.3-4.6) g/dL HCG, Qual Negative (Negative) Urine Color (Yellow) Urine Appearance (CLEAR) Urine pH (5-7) Ur Specific Gravit y (1.005-1.030) Urine Protein (Negative) Urine Glucose (UA) (Normal) Urine Ketones (Negative) Urine Blood (Negative) Urine Nitrate (Negative) Urine Bilirubin (Negative) Urine Urobilinogen (Negative) mg/dL Ur Leukocyte Doreen ase (Negative) 12/11/20 Range/Units 13:10 WBC (4.0-10.0) 10^3/ uL RBC (4.1-5.3) 10^6/u L Hgb (11.5-15.3) g/dL Hct (37.0-47.0) % MCV (81-99) fL MCH (28.0-34.0) pg MCHC (30.0-36.0) g/dL RDW (12.1-15.1) % Plt Count (130-400) 10^3/c mm MPV (7.4-10.4) fL Neut % (Auto) % Lymph % (Auto) % [place] % (Auto) % Eos % (Auto) % Baso % (Auto) % Neut # (Auto) (1.8-7.7) 10^3/u L Lymph # (Auto) (0.8-4.8) 10^3/u L [place] # (Auto) (0.2-0.9) 10^3/u L Eos # (Auto) (0.0-0.8) 10^3/u L Baso # (Auto) (0.0-0.1) 10^3/u L Nucleated RBC % (a uto) % Nucleated RBCs # /100WBC Sodium (136-145) mmol/L Potassium (3.5-5.1) mmol/L Chloride (98-107) mmol/L Carbon Dioxide (22-29) mmol/L Anion Gap (5-19) BUN (6-20) mg/dL Creatinine (0.5-0.9) mg/dL GFR Calculation (90-130) mL/min Glucose (65-115) mg/dL Calculated Osmolal ity (285-295) mOsm/k g Calcium (8.5-10.5) mg/dL Total Bilirubin (0.15-1.2) mg/dL AST (0-32) U/L ALT (0-33) U/L Alkaline Phosphata se (35-105) IU/L Total Protein (6.6-8.7) g/dL Albumin (3.5-5.2) g/dL Globulin (1.3-4.6) g/dL HCG, Qual (Negative) Urine Color Yellow (Yellow) Urine Appearance Clear (CLEAR) Urine pH 5 (5-7) Ur Specific Gravit y 1.005 (1.005-1.030) Urine Protein Neg (Negative) Urine Glucose (UA) Norm (Normal) Urine Ketones Negative (Negative) Urine Blood Neg (Negative) Urine Nitrate Negative (Negative) Urine Bilirubin Neg (Negative) Urine Urobilinogen Norm (Negative) mg/dL Ur Leukocyte Doreen ase Negative (Negative) Discharge Plan Discharge Patient Disposition: Home Clinical Impression: Strain of abdominal wall Condition: Stable Prescriptions: New hydrocodone-acetaminophen 5-325 mg tablet 1 tab PO Q6H PRN (Reason: pain) Qty: 20 RF: 0 diclofenac sodium 75 mg tablet,delayed release (DR/EC) 75 mg PO Q12H PRN (Reason: pain) Qty: 20 RF: 0 Medrol (Edward) 4 mg tablets,dose pack See Rx Instructions .ROUTE .COMPLEX Qty: 21 RF: 0 No Action albuterol sulfate 2.5 mg /3 mL (0.083 %) Solution For Nebulization 2.5 mg inhalation PRN RF: 0 clonazepam 1 mg Tablet See Rx Instructions .ROUTE .COMPLEX RF: 0 Tylenol Extra Strength 500 mg Tablet 1,000 mg PO PRN RF: 0 ziprasidone HCl 20 mg capsule 20 mg PO BID RF: 0 cimetidine 200 mg Tablet 200 mg PO BEDTIME RF: 0 hydroxyzine HCl 25 mg Tablet 50 mg PO QID RF: 0 Ventolin HFA 90 mcg/actuation Hfa Aerosol Inhaler 2 puff INHALATION Q4H PRN (Reason: Shortness Of Breath) RF: 0 melatonin 5 mg Tablet 5 mg PO BEDTIME RF: 0 Ozempic 1 mg/dose (2 mg/1.5 mL) pen injector 1 mg SUBCUT Q7D RF: 0 levothyroxine 200 mcg tablet 200 mcg PO QAM RF: 0 fluticasone propionate 50 mcg/actuation spray,suspension 1 - 2 spray INTRANASAL PRN RF: 0 lamotrigine 100 mg tablet 200 mg PO BEDTIME RF: 0 metformin 500 mg tablet extended release 24 hr 1,000 mg PO BID RF: 0 levothyroxine 75 mcg tablet 75 mcg PO QAM RF: 0 lisinopril 20 mg Tablet 20 mg PO BEDTIME RF: 0 Tradjenta 5 mg Tablet 5 mg PO QAM RF: 0 diphenhydramine HCl [Benadryl Allergy] 25 mg Tablet 25 - 50 mg PO PRN RF: 0 ibuprofen 200 mg Tablet 800 mg PO PRN RF: 0 Discharge Orders: Discharge ED (Routine); Ordered 12/11/20 Ordered By: David Wallace Referrals: Therese Garcia MD [Primary Care Provider] - Discharge Diet: Usual diet Discharge Activity: Limit activity as instructed Patient Instructions: Opioid Safety Activity Restrictions/Additional Instructions: No lifting greater than 8 to 10 pounds follow-up with PCP within the next week return if pain not controlled Stand Alone Forms: Work/School Release Coding Level of Care Code ED [employer] 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
--- NOTE | 2020-12-11 12:12 | CT_ITS ---
WS: [id number] CT ABDOMEN AND PELVIS NONCONTRAST HISTORY: flank pain/gross hematuria TECHNIQUE: Imaging performed through the abdomen and pelvis. Coronal and sagittal reformats are submi tted. All CT scans at [facility] use at least one of these dose optimization techniques: automated exposure control; mA and/or kV adjustment per patient size (includes targeted exams where d ose is matched to clinical indication); or iterative reconstruction. DLP: 2548.41 mGy.cm COMPARISON: 06/30/2016 Lower thorax: Diffuse haziness and mosaic attenuation at the lung bases. No pneumonia or nodule. No e ffusion. Heart size is normal. Small hiatal hernia. Liver: Markedly enlarged liver with severe hepatic steatosis. No bile duct dilatation or mass. Gallbladder: Prior cholecystectomy. Pancreas: Normal size and attenuation. Normal pancreatic duct. No pancreatitis or mass. Spleen: Normal. Adrenal glands: 2.0 cm benign adenoma associated with the lateral limb of the LEFT adrenal gland. Nor mal RIGHT adrenal gland. Right kidney: Normal size kidney with no mass or hydronephrosis. Left kidney: Normal size kidney with no mass or hydronephrosis. Aorta: Mild atherosclerosis abdominal aorta with no aneurysm. No free fluid, intraperitoneal air or significant lymphadenopathy. GI tract: Normal appendix. No GI tract obstruction. Abdominal wall: Negative. No hernia. Pelvis: Uterus and ovaries are negative. No free fluid or adenopathy. Urinary bladder is not distende d. Osseous structures: Unremarkable. CT/CT kidney stone [id number] IMPRESSION: 1. No renal calcifications or obstruction. 2. Severe hepatic steatosis and hepatomegaly. 3. Prior cholecystectomy. 4. Normal appendix.
[2020-12-11 12:16] LABS: Basophils # 0.2 10^3/uL (0.0-0.1); Eosinophils # 0.3 10^3/uL (0.0-0.8); Eosinophils % 1.7 %; Hematocrit 46.5 % (37.0-47.0); Hemoglobin 15.2 g/dL (11.5-15.3); Lymphocytes # 3.7 10^3/uL (0.8-4.8); Lymphocytes % 21.5 %; Mean Corpuscular HGB Conc 32.7 g/dL (30.0-36.0); Mean Corpuscular Hemoglobin 27.8 pg (28.0-34.0); Mean Corpuscular Volume 85.2 fL (81-99); Mean Platelet Volume 10.4 fL (7.4-10.4); Monocytes # 1.1 10^3/uL (0.2-0.9); Monocytes % 6.5 %; Neutrophils # 11.52 10^3/uL (1.8-7.7); Neutrophils % 67.2 %; Nucleated Red Blood Cells % 0 %; Platelet Count 335 10^3/cmm (130-400); Red Blood Count 5.46 10^6/uL (4.1-5.3); Red Cell Distribution Width 13.3 % (12.1-15.1); White Blood Count 17.2 10^3/uL (4.0-10.0)
[2020-12-11 12:27] LABS: Alanine Aminotransferase 47 U/L (0-33); Albumin Level 4.6 g/dL (3.5-5.2); Alkaline Phosphatase 68 IU/L (35-105); Anion Gap 16.6 (5-19); Aspartate Amino Transferase 35 U/L (0-32); Blood Urea Nitrogen 9 mg/dL (6-20); Calcium 9.2 mg/dL (8.5-10.5); Carbon Dioxide 22 mmol/L (22-29); Chloride 96 mmol/L (98-107); Glomerular Filtration Rate 138.1 mL/min (90-130); Glucose 153 mg/dL (65-115); Osmolality Calculated 272 mOsm/kg (285-295); Potassium 4.6 mmol/L (3.5-5.1); Sodium 130 mmol/L (136-145); Total Bilirubin 0.2 mg/dL (0.15-1.2); Total Protein 7.6 g/dL (6.6-8.7)
[2020-12-11 12:29] LABS: HCG, Serum Qual Negative (Negative)
[2020-12-11] MEDS: sodium chloride 0.9% 1,000 ML 999 ML IV (12:36)
[2020-12-11] MEDS: ondansetron 2 mg/ML SDV 2 mL 4 MG IVP (12:36)
[2020-12-11] MEDS: morphine 4 mg/mL SDV 1 mL 6 MG IVP (12:36)
[2020-12-11 13:51] LABS: Add Urine Microscopic? NO; Charge for UA Resulting for Rev
[2020-12-11 13:57] LABS: Bilirubin Urine Neg (Negative); Blood Urine Neg (Negative); Glucose Urine UA Norm (Normal); Ketones Urine Negative (Negative); Leukocyte Esterase Urine Negative (Negative); Nitrate Urine Negative (Negative); Protein Urine Neg (Negative); Specific Gravity, Urine 1.005 (1.005-1.030); Urine Appearance Clear (CLEAR); Urine Color Yellow (Yellow); Urobilinogen Urine Norm (Negative); pH Urine 5 (5-7)
[2020-12-11] MEDS: morphine 4 mg/mL SDV 1 mL IVP (15:23)
== END 2020-12-11 15:35 | disposition home or self-care (01) ==
PROVIDERS: Emergency Provider Family Medicine; PCP Family Medicine
DX: S39.011A Strain of muscle, fascia and tendon of abdomen, initial encounter (principal); E11.9 Type 2 diabetes mellitus without complications; I10 Essential (primary) hypertension; F17.210 Nicotine dependence, cigarettes, uncomplicated; X50.0XXA Overexertion from strenuous movement or load, initial encounter
CPT/HCPCS: 74176; 80053; 81003; 84703; 85025; 96361; 96374; 96375; 96376; 99284; J2270; J2405; J7030

== ENCOUNTER 2021-01-12 11:08 | Outpatient (CLI) | payer OTHER, SELFPAY ==
--- NOTE | 2021-01-12 11:24 | XR_ITS ---
WS: [id number] CHEST 2 VIEWS HISTORY: BRONCHITIS COMPARISON: 04/29/2020 Lungs: Poor inspiration. Crowding of lung markings at the bases. Interstitial thickening at the lung bases with probably improvement with better inspiration and less overlying soft tissue. No pneumonia. Cardiac size: Normal. Mediastinum/Aorta: Normal mediastinum. Bones: Normal. XR/XR chest 2V* [id number] IMPRESSION: Limited by poor inspiration. No pneumonia identified.
== END 2021-01-12 11:09 | disposition home or self-care (01) ==
PROVIDERS: PCP Family Medicine; Visit Provider Family Medicine
DX: J40 Bronchitis, not specified as acute or chronic (principal)
CPT/HCPCS: 71046

== ENCOUNTER 2021-03-04 16:12 | Outpatient (CLI) | payer OTHER, SELFPAY ==
[2021-03-04 17:21] LABS: Basophils # 0.2 10^3/uL (0.0-0.1); Basophils % 1.3 %; Eosinophils # 0.3 10^3/uL (0.0-0.8); Hematocrit 41.5 % (37.0-47.0); Hemoglobin 13.8 g/dL (11.5-15.3); LAB Peripheral Smear Sent for Review; Lymphocytes # 3.6 10^3/uL (0.8-4.8); Lymphocytes % 21.1 %; Mean Corpuscular HGB Conc 33.3 g/dL (30.0-36.0); Mean Corpuscular Hemoglobin 28.4 pg (28.0-34.0); Mean Corpuscular Volume 85.4 fL (81-99); Monocytes # 1.1 10^3/uL (0.2-0.9); Monocytes % 6.1 %; Neutrophils # 11.55 10^3/uL (1.8-7.7); Neutrophils % 67.1 %; Nucleated Red Blood Cells % 0 %; Platelet Count 346 10^3/cmm (130-400); Red Blood Count 4.86 10^6/uL (4.1-5.3); Red Cell Distribution Width 13.9 % (12.1-15.1); White Blood Count 17.2 10^3/uL (4.0-10.0)
[2021-03-04 18:03] LABS: C Reactive Protein 7.6 mg/L (0.0-4.9)
[2021-03-04 18:09] LABS: Erythrocyte Sedimentation Rate 29 mm/hr (0-15)
[2021-03-26 11:34] LABS: Miscellaneous Test See Scanned Lab Rpt
== END 2021-03-04 16:13 | disposition home or self-care (01) ==
PROVIDERS: PCP Family Medicine; Visit Provider Family Medicine
DX: D72.828 Other elevated white blood cell count (principal)
CPT/HCPCS: 36415; 80500; 85025; 85651; 86140; 88184; 88185

== ENCOUNTER 2021-03-11 09:17 | Outpatient (CLI) | payer OTHER, SELFPAY ==
[2021-03-11 09:40] LABS: Basophils # 0.2 10^3/uL (0.0-0.1); Basophils % 1.1 %; Eosinophils # 0.4 10^3/uL (0.0-0.8); Eosinophils % 2.2 %; Hematocrit 44.1 % (37.0-47.0); Hemoglobin 14.7 g/dL (11.5-15.3); Lymphocytes # 3.8 10^3/uL (0.8-4.8); Mean Corpuscular HGB Conc 33.3 g/dL (30.0-36.0); Mean Corpuscular Hemoglobin 28.2 pg (28.0-34.0); Mean Corpuscular Volume 84.5 fL (81-99); Mean Platelet Volume 10.6 fL (7.4-10.4); Monocytes # 1.2 10^3/uL (0.2-0.9); Monocytes % 6.1 %; Neutrophils # 13.03 10^3/uL (1.8-7.7); Neutrophils % 68.6 %; Nucleated Red Blood Cells % 0 %; Platelet Count 351 10^3/cmm (130-400); Red Blood Count 5.22 10^6/uL (4.1-5.3); Red Cell Distribution Width 13.8 % (12.1-15.1)
--- NOTE | 2021-03-11 13:52 | ONC CON_ITS ---
Dr. Jorge New Patient Note Patient: Lori Padron Unit #: [id number]: 1980 Dicatated By: Emery Jorge M.D.Date of Visit: Mar 11, 2021 Onc MED New Patient/Consult Referring Physician: Dr. Therese Garcia M.D. History of Present Illness: Ms. Lori Padron, is a 40-year-old female with history of mild isolated leukocytosis since as per medical record her CBC done on December 28, 2018 showed white blood count 14.1, hemoglobin 14.2 hematocrit 44.1 platelets 322,000 neutrophils 70.1%, absolute neutrophil count 9900 and repeat CBC done on August 16, 2019, showed white blood count 16.5 hemoglobin 14.4 hematocrit 42.6 platelets 344,000 ANC about [address]7880, and CBC done on January 14, 2020 showed white blood count 13,000 hemoglobin 13 g hematocrit 41.3 platelets 312,000 ANC 9000., Repeat CBC done on August 16, 2019 showed white blood count 16.5 hemoglobin 14.4 hematocrit 42.6 platelets 344,000 with absolute neutrophil count 12,000, again repeat CBC done on January 14, 2020 showed white blood count 13,000 with a normal hemoglobin and platelets and repeat CBC on July 14, 2020 showed white blood count 14.6 with normal hemoglobin and platelets, as per patient in December 2020 because of lower upper respiratory infection symptoms she was treated with antibiotic as well as tapering dose of high-dose prednisone her repeat CBC done on February 27, 2021 showed white blood count 20,200 and hemoglobin 13.7 hematocrit 43.7 platelets 314,000 ANC 31031. Patient denies any upper respiratory infection symptoms no sinusitis related symptoms no dysuria or hematuria, no chronic wound, chronic inflammation. As per patient she lost about 20 pounds in the last couple of months, without watching diet. Complaining of night sweating but not drenching, denies any peripheral lymphadenopathy, denies any abdominal fullness, denies using triamcinolone cream recently, denies any Advair inhaler recently all the prescribed as per medical record. Denies steroid use on regular basis. But patient is a chronic heavy smoker as per medical record she used to use packs a day but patient says she smoked half pack a day since age 16. Denies any history of chronic skin infections but as per medical record chronic fungal infection involving back. Off and on fever for the last 2 months now being worked up. Patient has history of right inner breast biopsy done in 2002 in [place] as per patient it was benign but now has been feeling a small mass in the right outer part of breast, no nipple retraction but off and on milky discharge no bloody discharge. No overlying skin changes. No right axillary fullness., As per patient last mammogram was done in 2019. History of thyroidectomy for goiter in 2018 now on thyroid supplement levothyroxine Obesity, on CPAP since 2014. Past Medical History: Ms. Padron's medical history consists of asthma, bipolar disorder, depression, hypertension, hypothyroidism, insomnia, multinodular goiter, obsessive compulsive disorder, panic attacks, post traumatic stress disorder, and type II diabetes. Past Surgical History: Ms. Goodens surgical/procedural history consists of breast lumpectomy, caesarean section, cholecystectomy, thyroidectomy, and tonsillectomy. Medications: Cimetidine 1 Tablet (of 200 mg) Oral at bedtime, clonazePAM (1 mg) Tablet Oral Take as Directed, [facility] Melatonin 1 Capsule (of 5 mg) Oral at bedtime, Euthyrox 1 Tablet (of 75 mcg) Oral daily, hydrOXYzine HCl 1 Tablet (of 25 mg) Oral q 6 hours PRN, LaMICtal 1 Tablet (of 200 mg) Oral at bedtime, Levothyroxine Sodium 1 Tablet (of 200 mcg) Oral daily, Lisinopril 1 Tablet (of 20 mg) Oral at bedtime, metFORMIN HCl 1 Tablet (of 1000 mg) Oral b.i.d., Ozempic (1 MG/DOSE) 1 Dose Pack (of 2 mg/1.5mL) Subcutaneous q 7 days, Tradjenta 1 Tablet Oral daily Allergies: Latex, Penicillins, and PROzac. Social History: Ms. Padron is . She is a daily smoker who smokes 2.0 packs/day. She drinks occasionally. She has indicated exposure to the following products: cigarettes. Family History: Ms. Padron's mother at age 54: chronic obstructive pulmonary disease, and hypertension, and ovarian cancer. Ms. Padron's father is alive: hypertension. Ms. Padron has 1 brother who is alive. Review Of Symptoms: Review of Systems is not available for this patient. Vital Signs: Performed on Mar 11, 2021 10:44: 10, 6, 48.72 (HIGH), 2.33 sq.m, 65 in, 97 %, 109 /min (HIGH), 18 /min, 139/91 mm(hg), 98.2 F (LOW), and 292.8 lbs (HIGH). Performance Status: 0 - Fully active, able to carry on all predisease activities without restrictions. (ECOG) Physical Examination: ENMT - No mouth sores, no thrush, no jaundice, no axillary lymphadenopathy, Respiratory - Poor air entry otherwise clear, Cardiovascular - Regular rate and rhythm of heart, Abdomen - No abdominal pain, no fullness, Extremities - No visible edema or rash. Lab/Imaging: Most recent lab results are not available for this patient. Impression: Isolated mild leukocytosis/neutrophilia with normal hemoglobin and platelets since , etiology unclear could be multifactorial e.g. leukemoid reaction secondary to chronic heavy smoking and related side effect like subclinical sinusitis, bronchitis orders smoking-related leukocytosis, or due to chronic use of steroids or stress related or chronic inflammation/infection or myeloproliferative disorder like CML but less likely Obesity/sleep apnea on CPAP since 2014 Thyroidectomy for goiter, on levothyroxine Status post right inner breast biopsy in 2002, benign Chronic back pain, asthma, major depressive disorder, bipolar disorder, obsessive compulsive disorder, panic, PTSD Plan: Discussed with patient regarding her labs from today White blood count 19,000 hemoglobin 14.7 hematocrit 44.1 platelets 351,000 absolute neutrophil count 13,000 Clinically, patient has no acute signs symptom suggestive of infection, no significant physical findings, etiology of isolated leukocytosis could be multifactorial including leukemoid reaction to subclinical infection/inflammation e.g. chronic sinusitis, pharyngitis, bronchitis or chronic cystitis, chronic fungal infections, or due to smoking or stress or myeloproliferative disorder like CML but less likely peripheral blood smear reviewed by pathology on March 04, 2021 showed no blast or blast equivalent cell but leukocytosis with marked neutrophilia, at this point, will proceed with whole blood flow cytometry to rule out myeloproliferative disorder, patient was advised to quit smoking was offered any assistance she may need. As patient has history of right breast biopsy done in 2002 which was benign however with right outer breast palpable mass, will consider mammogram, as per patient last mammogram was done in 2019, mammogram failed to show any significant abnormality or inconclusive, will consider right breast sonogram or MRI scan of breast as patient is a young person and dense breast tissue can preclude small nodules from routine mammograms., As patient has family history of breast cancer in her aunt. Patient return to clinic in 2 weeks with CBC and CMP and follow-up mammogram and with whole blood flow cytometry Patient was also advised to observe and document any spiking fever in the next couple of weeks and if recurred, will refer her to infectious disease for evaluation Signed By: Emery Jorge M.D. <<Signature on File>>
[2021-03-13 10:59] LABS: Miscellaneous Test See Scanned Lab Rpt
== END 2021-03-11 09:18 | disposition home or self-care (01) ==
LOC: ONCMED 09:21
PROVIDERS: PCP Family Medicine; Referring Provider Family Medicine; Visit Provider Internal Medicine Hematology & Oncology
DX: D72.820 Lymphocytosis (symptomatic) (principal); F17.210 Nicotine dependence, cigarettes, uncomplicated; E66.9 Obesity, unspecified; G47.33 Obstructive sleep apnea (adult) (pediatric); E04.9 Nontoxic goiter, unspecified; M54.5 Low back pain; G89.29 Other chronic pain; J45.909 Unspecified asthma, uncomplicated; F32.9 Major depressive disorder, single episode, unspecified; F31.9 Bipolar disorder, unspecified; F42.9 Obsessive-compulsive disorder, unspecified; F41.0 Panic disorder [episodic paroxysmal anxiety]; F43.10 Post-traumatic stress disorder, unspecified; Z79.899 Other long term (current) drug therapy
CPT/HCPCS: 36415; 85025; 88184; 88185; 99204

== ENCOUNTER 2021-04-02 15:06 | Outpatient (CLI) | payer OTHER, SELFPAY ==
[2021-04-02 16:39] LABS: Basophils # 0.2 10^3/uL (0.0-0.1); Basophils % 0.9 %; Eosinophils # 0.3 10^3/uL (0.0-0.8); Eosinophils % 1.4 %; Hemoglobin 14.3 g/dL (11.5-15.3); Lymphocytes # 3.6 10^3/uL (0.8-4.8); Lymphocytes % 20.4 %; Mean Corpuscular HGB Conc 32.5 g/dL (30.0-36.0); Mean Corpuscular Volume 86.3 fL (81-99); Mean Platelet Volume 11.3 fL (7.4-10.4); Monocytes # 1.1 10^3/uL (0.2-0.9); Monocytes % 6.5 %; Neutrophils # 12.12 10^3/uL (1.8-7.7); Neutrophils % 69.2 %; Nucleated Red Blood Cells % 0 %; Platelet Count 349 10^3/cmm (130-400); Red Cell Distribution Width 13.3 % (12.1-15.1); White Blood Count 17.5 10^3/uL (4.0-10.0)
== END 2021-04-02 15:07 | disposition home or self-care (01) ==
LOC: ONCMED 15:09
PROVIDERS: PCP Family Medicine; Visit Provider Internal Medicine Hematology & Oncology
DX: D72.829 Elevated white blood cell count, unspecified (principal); D72.0 Genetic anomalies of leukocytes
CPT/HCPCS: 36415; 85025

== ENCOUNTER 2021-04-03 08:35 | Outpatient (CLI) | payer OTHER, SELFPAY ==
--- NOTE | 2021-04-03 10:38 | ONC FU_ITS ---
Dr. Jorge follow up note Patient: Lori Padron Unit #: [id number]: 1980 Dicatated By: Emery Jorge M.D.Date of Visit:Apr 03, 2021 Onc Med Follow-up/Prog Note History of Present Illness: Ms. Lori Padron, is a 40-year-old female with history of mild isolated leukocytosis since as per medical record her CBC done on December 28, 2018 showed white blood count 14.1, hemoglobin 14.2 hematocrit 44.1 platelets 322,000 neutrophils 70.1%, absolute neutrophil count 9900 and repeat CBC done on August 16, 2019, showed white blood count 16.5 hemoglobin 14.4 hematocrit 42.6 platelets 344,000 ANC about [address], and CBC done on January 14, 2020 showed white blood count 13,000 hemoglobin 13 g hematocrit 41.3 platelets 312,000 ANC 9000., Repeat CBC done on August 16, 2019 showed white blood count 16.5 hemoglobin 14.4 hematocrit 42.6 platelets 344,000 with absolute neutrophil count 12,000, again repeat CBC done on January 14, 2020 showed white blood count 13,000 with a normal hemoglobin and platelets and repeat CBC on July 14, 2020 showed white blood count 14.6 with normal hemoglobin and platelets, as per patient in December 2020 because of lower upper respiratory infection symptoms she was treated with antibiotic as well as tapering dose of high-dose prednisone her repeat CBC done on February 27, 2021 showed white blood count 20,200 and hemoglobin 13.7 hematocrit 43.7 platelets 314,000 ANC 28[address]. Patient denies any upper respiratory infection symptoms no sinusitis related symptoms no dysuria or hematuria, no chronic wound, chronic inflammation. As per patient she lost about 20 pounds in the last couple of months, without watching diet. Complaining of night sweating but not drenching, denies any peripheral lymphadenopathy, denies any abdominal fullness, denies using triamcinolone cream recently, denies any Advair inhaler recently all the prescribed as per medical record. Denies steroid use on regular basis. But patient is a chronic heavy smoker as per medical record she used to use packs a day but patient says she smoked half pack a day since age 16. Denies any history of chronic skin infections but as per medical record chronic fungal infection involving back. Off and on fever for the last 2 months now being worked up. Patient has history of right inner breast biopsy done in 2002 in [place] as per patient it was benign but now has been feeling a small mass in the right outer part of breast, no nipple retraction but off and on milky discharge no bloody discharge. No overlying skin changes. No right axillary fullness., As per patient last mammogram was done in 2019. History of thyroidectomy for goiter in 2018 now on thyroid supplement levothyroxine Obesity, on CPAP since 2014. Whole blood flow cytometry done on March 11, 2021 showed no aberrant myeloid or lymphoid population Came for follow-up, denies any specific complaint except recurrent low-grade fever up to 100 Fahrenheit but denies any sinusitis related symptoms denies any dysuria or hematuria denies any skin infection denies any chills denies any night sweats. Still smoking about half pack a day Medications: Cimetidine 1 Tablet (of 200 mg) Oral at bedtime, clonazePAM (1 mg) Tablet Oral Take as Directed, [facility] Melatonin 1 Capsule (of 5 mg) Oral at bedtime, Euthyrox 1 Tablet (of 75 mcg) Oral daily, hydrOXYzine HCl 1 Tablet (of 25 mg) Oral q 6 hours PRN, LaMICtal 1 Tablet (of 200 mg) Oral at bedtime, Levothyroxine Sodium 1 Tablet (of 200 mcg) Oral daily, Lisinopril 1 Tablet (of 20 mg) Oral at bedtime, metFORMIN HCl 1 Tablet (of 1000 mg) Oral b.i.d., Ozempic (1 MG/DOSE) 1 Dose Pack (of 2 mg/1.5mL) Subcutaneous q 7 days, Tradjenta 1 Tablet Oral daily Allergies: Latex, Penicillins, and PROzac. Review of Systems: Review of Systems is not available for this patient. Vital Signs: Performed on Apr 03, 2021 08:48 Height - 65.00 in Weight - 289.4 lbs (LOW) BSA - 2.31 sq.m BMI - 48.16 (HIGH) Temperature - 97.2 F (LOW) Pulse - 108 /min (HIGH) Respiration - 18 /min BP - 129/88 mm(hg) O2 Sat - 96 % Pain - 3 Performance Status: 0 - Fully active, able to carry on all predisease activities without restrictions. (ECOG) Physical Examination: ENMT - No mouth sores, no thrush, no jaundice, Respiratory - Lungs are clear to auscultation, Cardiovascular - Regular rate and rhythm of heart, Abdomen - Soft, bowel sounds present, Extremities - No visible edema. Lab/Imaging: Most recent lab results are not available for this patient. Impression: Isolated mild leukocytosis/neutrophilia with normal hemoglobin and platelets since , etiology unclear could be multifactorial e.g. leukemoid reaction secondary to chronic heavy smoking and related side effect like subclinical sinusitis, bronchitis orders smoking-related leukocytosis, or due to chronic use of steroids or stress related or chronic inflammation/infection or myeloproliferative disorder like CML but less likely Whole blood flow cytometry done on March 11, 2021 shows no aberrant myeloid or lymphoid population Off and on low-grade fever, questionable etiology, subclinical infection / inflammation, Obesity/sleep apnea on CPAP since 2014 Thyroidectomy for goiter, on levothyroxine Status post right inner breast biopsy in 2002, benign Chronic back pain, asthma, major depressive disorder, bipolar disorder, obsessive compulsive disorder, panic, PTSD Plan: Discussed with patient regarding her labs white blood count 17.5 hemoglobin 14.3 hematocrit 44 platelets 349,000 ANC 12,000., Whole blood flow cytometry done on March 11, 2021 shows no aberrant myeloid or lymphoid population Clinically, patient doing well with no new signs symptom suggestive of acute infection but she may have subclinical infection as patient is having off and on low-grade fever of unknown origin, as per leukocytosis concern, whole blood flow cytometry showed no aberrant myeloid or lymphoid population so etiology of mild leukocytosis could be reactive to chronic smoking or underlying subclinical chronic sinusitis/bronchitis or cystitis but we will monitor her blood counts so she will return to clinic in 3 months with CBC if she has progressive leukocytosis, will consider further evaluation. Patient was advised to quit smoking and was offered any assistance she may need and will also suggest infectious disease consultation for low-grade fever of unknown origin Signed By: Emery Jorge M.D. <<Signature on File>>
== END 2021-04-03 08:36 | disposition home or self-care (01) ==
LOC: ONCMED 08:36
PROVIDERS: PCP Family Medicine; Visit Provider Internal Medicine Hematology & Oncology
DX: D72.829 Elevated white blood cell count, unspecified (principal); F17.210 Nicotine dependence, cigarettes, uncomplicated; J32.9 Chronic sinusitis, unspecified; J41.0 Simple chronic bronchitis; Z79.52 Long term (current) use of systemic steroids; E66.9 Obesity, unspecified; Z68.42 Body mass index [BMI] 45.0-49.9, adult; G47.30 Sleep apnea, unspecified; E05.00 Thyrotoxicosis with diffuse goiter without thyrotoxic crisis or storm; M54.5 Low back pain; G89.29 Other chronic pain; J45.909 Unspecified asthma, uncomplicated; F33.9 Major depressive disorder, recurrent, unspecified; F31.9 Bipolar disorder, unspecified; R46.81 Obsessive-compulsive behavior; F41.0 Panic disorder [episodic paroxysmal anxiety]; F43.10 Post-traumatic stress disorder, unspecified; Z79.899 Other long term (current) drug therapy
CPT/HCPCS: 99214

== ENCOUNTER 2021-04-07 15:52 | Outpatient (CLI) | payer OTHER, SELFPAY ==
[2021-04-07 17:20] LABS: Alanine Aminotransferase 52 U/L (0-33); Albumin Level 4.5 g/dL (3.5-5.2); Alkaline Phosphatase 70 IU/L (35-105); Anion Gap 17.3 (5-19); Aspartate Amino Transferase 34 U/L (0-32); Blood Urea Nitrogen 10 mg/dL (6-20); Calcium 9.5 mg/dL (8.5-10.5); Carbon Dioxide 22 mmol/L (22-29); Chloride 99 mmol/L (98-107); Globulin 3.5 g/dL (1.3-4.6); Glomerular Filtration Rate 138.1 mL/min (90-130); Glucose 109 mg/dL (65-115); Osmolality Calculated 278 mOsm/kg (285-295); Potassium 4.3 mmol/L (3.5-5.1); Sodium 134 mmol/L (136-145); Total Bilirubin 0.2 mg/dL (0.15-1.2)
== END 2021-04-07 15:53 | disposition home or self-care (01) ==
PROVIDERS: PCP Family Medicine; Visit Provider Clinical Nurse Specialist Adult Health
DX: R11.2 Nausea with vomiting, unspecified (principal)
CPT/HCPCS: 36415; 80053

== ENCOUNTER 2021-05-06 16:19 | Outpatient (CLI) | payer OTHER, SELFPAY ==
--- NOTE | 2021-05-06 16:42 | ECG_ITS ---
[facility] Test Date: 2021-05-06 Pat Name: Lori Padron Department: Room: Gender: Female Transaction Coordinator: : 1980 Requested By: Pierre Jaramillo Order Number: [id number] Yayo MD: Greer Valencia M.D. Measurements Intervals [place] Rate: 91 P: 27 MI: 183 QRS: 37 QRSD: 104 T: 35 QT: 360 QTc: 444 Interpretive Statements SINUS RHYTHM LOW QRS VOLTAGE IN PRECORDIAL LEADS [QRS DEFLECTION < 1.0 mV IN CHEST LEADS] Compared to ECG 04/29/2020 14:48:05 No significant changes Electronically Signed On 05-07-2021 9:28:40 CDT by Greer Valencia M.D. [id number]
== END 2021-05-06 16:20 | disposition home or self-care (01) ==
LOC: RT 16:20
PROVIDERS: PCP Family Medicine; Visit Provider Clinical Nurse Specialist Adult Health
DX: I10 Essential (primary) hypertension (principal)
CPT/HCPCS: 93005

== ENCOUNTER 2021-05-20 16:16 | Outpatient (CLI) | payer OTHER, SELFPAY ==
[2021-05-20 16:45] LABS: Basophils # 0.2 10^3/uL (0.0-0.1); Basophils % 1.1 %; Eosinophils # 0.4 10^3/uL (0.0-0.8); Eosinophils % 2.3 %; Hematocrit 43.4 % (37.0-47.0); Hemoglobin 14.1 g/dL (11.5-15.3); Lymphocytes # 3.4 10^3/uL (0.8-4.8); Mean Corpuscular HGB Conc 32.5 g/dL (30.0-36.0); Mean Corpuscular Hemoglobin 27.9 pg (28.0-34.0); Mean Corpuscular Volume 85.8 fl (81-99); Mean Platelet Volume 10.4 fL (7.4-10.4); Monocytes % 6.3 %; Neutrophils # 10.36 10^3/uL (1.8-7.7); Neutrophils % 67.1 %; Nucleated Red Blood Cells % 0 %; Platelet Count 346 10^3/cmm (130-400); Red Blood Count 5.06 10^6/uL (4.1-5.3); Red Cell Distribution Width 13.5 % (12.1-15.1); White Blood Count 15.4 10^3/uL (4.0-10.0)
[2021-05-20 17:06] LABS: C Reactive Protein 10.9 mg/L (0.0-4.9)
[2021-05-20 18:40] LABS: LAB Peripheral Smear Sent for Review
[2021-05-25 07:35] LABS: Miscellaneous Test See Scanned Lab Rpt
== END 2021-05-20 16:17 | disposition home or self-care (01) ==
LOC: LAB 16:21
PROVIDERS: PCP Family Medicine; Visit Provider Family Medicine
DX: D72.828 Other elevated white blood cell count (principal)
CPT/HCPCS: 36415; 80500; 85025; 85651; 86140; 88184; 88185

== ENCOUNTER → 2021-06-08 08:05 | Outpatient (BNVA) | payer OTHER, SELFPAY | PROVIDERS: PCP Family Medicine; Referring Provider Clinical Nurse Specialist Adult Health; Visit Provider Internal Medicine | DX: E11.40 Type 2 diabetes mellitus with diabetic neuropathy, unspecified (principal); E03.9 Hypothyroidism, unspecified; I10 Essential (primary) hypertension; F17.210 Nicotine dependence, cigarettes, uncomplicated; Z79.4 Long term (current) use of insulin | CPT/HCPCS: 99204 ==

== ENCOUNTER 2021-06-08 09:34 | Outpatient (CLI) | payer OTHER, SELFPAY ==
[2021-06-08 10:09] LABS: Estmated Average Glucose 128; Hemoglobin A1C 6.1 % (4.0-6.0)
[2021-06-08 11:05] LABS: Free T4 Free Thyroxine 1.78 ng/dL (0.82-1.77); Thyroid Stimulating Hormone 0.68 uIU/mL (0.27-4.20)
== END 2021-06-08 09:35 | disposition home or self-care (01) ==
LOC: LAB 09:37
PROVIDERS: PCP Family Medicine; Visit Provider Internal Medicine
DX: E03.9 Hypothyroidism, unspecified (principal); E11.9 Type 2 diabetes mellitus without complications
CPT/HCPCS: 36415; 83036; 84439; 84443

== ENCOUNTER 2021-06-10 17:37 | Emergency (ER) | payer OTHER, SELFPAY ==
--- NOTE | 2021-06-10 18:24 | XRR_ITS ---
PROCEDURE INFORMATION: Exam: XR Left Foot Exam date and time: 06/10/2021 6:24 PM Age: 41 years old Clinical indication: Pain; Foot; Left; Additional info: Left foot injury TECHNIQUE: Imaging protocol: XR Left foot. Views: 3 or more views. COMPARISON: No relevant prior studies available. FINDINGS: Bones/joints: Distal Achilles tendon degenerative calcification. Soft tissues: Normal. XR/XR foot LT min 3V* [id number] IMPRESSION: Negative for fracture or dislocation Radiation Dose CTDIVOL = (mGy): DLP = (mGy-cm)
[2021-06-10 18:30] VITALS: BP 144/85; PULSE 92; RESP 18; TEMP 36.8; O2SAT 95; BMI 47.9
--- NOTE | 2021-06-10 20:15 | ED_ITS ---
HPI - Extremity Problem General: Chief complaint: Extremity Injury, Lower Stated complaint: left foot injury Time Seen by Provider: 06/10/21 20:08 History of Present Illness: HPI Narrative: Patient is a 41-year-old female who comes to the ED with left foot injury. Patient says today she was unloading some groceries and a large can of beans fell on her left foot. She is now having some swelling and bruising of her left foot and she rates the pain currently a 7 out of 10. She describes the pain as throbbing. endorses pain with weightbearing. denies any other injuries. Associated symptoms: Deny chest pain, fever(s) or rash Review of Systems Const: Denies: fever(s), chills or fatigue Eyes: Denies: change in vision or eye discomfort ENMT: Denies: throat pain, odynophagia, nasal discharge or nasal congestion Card: Denies: chest pain, palpitations, edema, swelling of feet/ankles, dyspnea on exertion or orthopnea Resp: Denies: dyspnea, productive cough or non-productive cough GI: Denies: abdominal pain, nausea, vomiting, diarrhea, constipation or hematochezia : Denies: flank pain, dysuria or hematuria Musc: Reports: extremity pain (left foot) and extremity swelling (left foot); Denies: neck pain or back pain Skin/Breast: Denies: rash or new lesions Neuro: Denies: headache(s), numbness in extremities or weakness in extremities [facility] ED PFSH: Medical History Close exposure to COVID-19 virus Depression Diabetes mellitus Hypertension Hypothyroid Mandibular fracture Surgical History H/O thyroidectomy Previous section S/P breast lumpectomy S/P cholecystectomy S/P tonsillectomy and adenoidectomy Family History Father Hypertension Cancer Cardiac abnormality Mother CHF (congestive heart failure) COPD (chronic obstructive pulmonary disease) Diabetes Social History Smoking and tobacco status: current every day smoker Second hand smoke exposure: Yes Smoking risk assessment/counseling performed?: Yes Alcohol intake: current Alcohol intake frequency: holidays/special occasions only Alcohol type: wine Desire information about alcohol rehabilitation?: No Counseling given: Yes Desire information about substance/drug rehabilitation?: No Counseling given: Yes Adopted: No Caregiver/support person: No Lives independently: Yes Household members: spouse and family Housing: House Marital status: Number of children: 2 Number of grandchildren: 1 Highest education level completed: Some College, No Degree service: No Current occupational status: employed History of recent travel: No Sexually active: Yes Current gender identity: Female Balbina/Religious: Baptist Special balbina needs: No Agree to transfusion: Yes Female Reproductive History: Date of last menstrual period: 09/29/20 Physical Exam Const: COMMON NORMALS: no acute distress, patient oriented x3, healthy a ppearing and alert GENERAL APPEARANCE: cooperative and comfortable HENMT: COMMON NORMALS: normocephalic HEAD & SCALP: normocephalic MOUTH: Normal oral and palatal mucosa present THROAT: posterior oropharynx normal and uvula midline Neck/C-Spine: COMMON NORMALS: supple GENERAL: Yes normal visual inspection Resp: COMMON NORMALS: normal respiratory effort, No retractions, No use of accessory muscles and clear to auscultation bilaterally AUSCULTATION: clear to auscultation bilaterally Cardio: COMMON NORMALS: regular rate, regular rhythm, S1 normal heart sound present, S2 normal heart sound present, No gallops present (Cardio), No clicks present (Cardio), No murmurs present (Cardio) and Peripheral pulses 2+ throughout RATE: regular rate RHYTHM: regular rhythm HEART SOUNDS: S1 normal heart sound present and S2 normal heart sound present PERIPHERAL PULSES: Peripheral pulses 2+ throughout GI: COMMON NORMALS: Normal to inspection, nondistended, normoactive bowel sounds present, Soft to palpation, non-tender and no masses PALPATION: Yes Soft to palpation : COMMON NORMALS: Yes no CVA tenderness BLADDER/KIDNEY EXAM: Yes no CVA tenderness Back/Pelvis: COMMON NORMALS: no CVA tenderness Extremity: GENERAL: Yes normal exam except as noted LEFT LOWER EXTREMITY: Yes foot & digits Left foot and digits: Yes inspection (No deformity noted. Ecchymosis and swelling on top of foot), Yes palpation (Tenderness over top of foot), Yes ROM (limited due to pain) and Yes neurovascular exam (intact) Neuro: COMMON NORMALS: patient oriented x3 and moves all extremities SENSORIUM/ORIENTATION: Yes alert Skin: GENERAL SKIN EXAM: dry skin Course Vital Signs: Vital signs: Vital Signs Temperature 98.2 F 06/10/21 18:30 Pulse Rate 78 06/10/21 20:46 Respiratory Rate 18 06/10/21 20:46 Blood Pressure 132/86 06/10/21 20:46 Pulse Oximetry 99 06/10/21 20:46 MDM - Extremity (Nontraumatic) MDM Narrative: Medical decision making narrative: Pt is a 41y/o female that comes to the ED with Left foot pain after dropping can of beans on foot. Exam shows a contusion the left foot. XRay of left foot showed no acute fractures or findings. Pt diagnosed with a left foot contusion and d/c home. Follow up with pcp in 7-10 days for reevaluation. return to ED precautions given. pt dc with prescription for ibuprofen 800mg and told to rest, ice and elevate foot. pt understood and agreed with plan. Imaging Data^: Xray Ortho: Attestation: I personally reviewed and interpreted this imaging study as follows: Radiologist's impression: [address] [address] XRay Report Signed Patient: Lori Padron Unit #: [id number] : 1980 Age/Sex: 41 / F ADM Date: 06/10/21 Loc: ER Room/Bed: Attending Dr: Ordering Provider/Ordering MD: Felipe Anderson Date of Service: 06/10/21 Procedure(s): XR foot LT min 3V* 25033 Accession Number(s): [id number] Report Number: [id number] PROCEDURE INFORMATION: Exam: XR Left Foot Exam date and time: 06/10/2021 6:24 PM Age: 41 years old Clinical indication: Pain; Foot; Left; Additional info: Left foot injury TECHNIQUE: Imaging protocol: XR Left foot. Views: 3 or more views. COMPARISON: No relevant prior studies available. FINDINGS: Bones/joints: Distal Achilles tendon degenerative calcification. Soft tissues: Normal. XR/XR foot LT min 3V* [id number] IMPRESSION: Negative for fracture or dislocation Radiation Dose CTDIVOL = (mGy): DLP = (mGy-cm) Dictated By: Anjel Pickard MD Signed By: Anjel Pickard MD Signed Date/Time: 06/10/211958 DD/ 23 Discharge Plan Discharge Patient Disposition: Home Clinical Impression: Contusion of foot, left Qualifiers: Encounter type: initial encounter Qualified Code(s): S90.32XA - Contusion of left foot, initial encounter Condition: Stable Prescriptions: New ibuprofen 800 mg tablet 800 mg PO Q8H PRN (Reason: pain) Qty: 20 RF: 0 No Action famotidine 20 mg tablet 20 mg PO DAILY RF: 0 omega-3 fatty acids [Fish Oil Concentrate] 1,000 mg capsule 1,000 mg PO DAILY RF: 0 Levemir FlexTouch U-100 Insuln 100 unit/mL (3 mL) insulin pen 15 unit SUBCUT DAILY Qty: 15 RF: 3 insulin aspart U-100 [Novolog Flexpen U-100 Insulin] 100 unit/mL (3 mL) insulin pen 10 unit SUBCUT TID Qty: 15 RF: 3 gabapentin 100 mg capsule 100 mg PO DAILY Qty: 90 RF: 3 ondansetron 4 mg tablet,disintegrating 4 mg PO Q8H PRN (Reason: nausea and vomiting) Qty: 20 RF: 0 albuterol sulfate 2.5 mg /3 mL (0.083 %) Solution For Nebulization 2.5 mg inhalation PRN RF: 0 clonazepam 1 mg Tablet See Rx Instructions .ROUTE .COMPLEX RF: 0 Tylenol Extra Strength 500 mg Tablet 1,000 mg PO PRN RF: 0 ziprasidone HCl 20 mg capsule 20 mg PO BID RF: 0 hydroxyzine HCl 25 mg Tablet 50 mg PO QID RF: 0 Ventolin HFA 90 mcg/actuation Hfa Aerosol Inhaler 2 puff INHALATION Q4H PRN (Reason: Shortness Of Breath) RF: 0 melatonin 5 mg Tablet 5 mg PO BEDTIME RF: 0 Ozempic 1 mg/dose (2 mg/1.5 mL) pen injector 1 mg SUBCUT Q7D RF: 0 diclofenac sodium 75 mg tablet,delayed release (DR/EC) 75 mg PO Q12H PRN (Reason: pain) Qty: 20 RF: 0 levothyroxine 200 mcg tablet 200 mcg PO QAM RF: 0 fluticasone propionate 50 mcg/actuation spray,suspension 1 - 2 spray INTRANASAL PRN RF: 0 lamotrigine 100 mg tablet 200 mg PO BEDTIME RF: 0 metformin 500 mg tablet extended release 24 hr 1,000 mg PO BID RF: 0 levothyroxine 75 mcg tablet 75 mcg PO QAM RF: 0 lisinopril 20 mg Tablet 20 mg PO BEDTIME RF: 0 diphenhydramine HCl [Benadryl Allergy] 25 mg Tablet 25 - 50 mg PO PRN RF: 0 ibuprofen 200 mg Tablet 800 mg PO PRN RF: 0 Discharge Orders: Discharge ED (Routine); Ordered 06/10/21 Ordered By: Felipe Anderson Referrals: Felipe Marroquin MD [Primary Care Provider] - Discharge Diet: Regular Discharge Activity: Increase activity as tolerated and Use walker/crutches as instructed Patient Instructions: Foot Contusion (ED) Activity Restrictions/Additional Instructions: Follow-up with medical provider as directed in 7 to 10 days for reevaluation. Use crutches at home for the next 1 to 2 days to allow foot to heal. Rest, ice and elevate left foot. You can also use some Suhas wrap and wrap the foot elbow swelling. Take medications as prescribed. Return to the ER or your medical provider if condition worsens. Please read and understand discharge instructions. Thank you for choosing [facility] for your healthcare needs today. Please realize this is an emergency room and that we are providing you with a medical screening exam and this may not be complete and all inclusive of all the testing and or work up that you may need to determine your ailment or severity of your illness. It is very important that you follow up as instructed or that you return to the Emergency Department should you have concerns or if your condition changes or worsens in any way. Coding Level of Care Code ED Research Support Specialist for Chao Fwkanchan Exam Comprehensive
[2021-06-10 20:42] VITALS: PULSE 78
[2021-06-10 20:46] VITALS: BP 132/86; PULSE 78; RESP 18; O2SAT 99
== END 2021-06-10 20:47 | disposition home or self-care (01) ==
PROVIDERS: Emergency Provider Physician Assistant; PCP Family Medicine
DX: S90.32XA Contusion of left foot, initial encounter (principal); Z79.84 Long term (current) use of oral hypoglycemic drugs; Z79.4 Long term (current) use of insulin; E11.9 Type 2 diabetes mellitus without complications; I10 Essential (primary) hypertension; F17.210 Nicotine dependence, cigarettes, uncomplicated; W20.8XXA Other cause of strike by thrown, projected or falling object, initial encounter
CPT/HCPCS: 73630; 99282

== ENCOUNTER 2021-08-31 15:52 | Outpatient (CLI) | payer OTHER, SELFPAY ==
[2021-08-31 16:56] LABS: Free T4 Free Thyroxine 1.91 ng/dL (0.82-1.77); Thyroid Stimulating Hormone 0.43 uIU/mL (0.27-4.20)
== END 2021-08-31 15:53 | disposition home or self-care (01) ==
LOC: LAB 15:55
PROVIDERS: PCP Family Medicine; Visit Provider Internal Medicine
DX: E03.9 Hypothyroidism, unspecified (principal)
CPT/HCPCS: 84439; 84443; 87635; 87801

== ENCOUNTER 2021-09-02 08:03 | Day surgery (SDC) | payer OTHER, SELFPAY ==
[2021-09-01 15:43] VITALS: BMI 48.0
--- NOTE | 2021-09-02 08:25 | ANES.PREANE2 ---
Pre-Anesthetic Assessment Pre-Anesthetic Assessment: Height/Weight: Height 1.63 m Weight 127.006 kg Preop Diagnosis: upper gi symptoms Proposed Procedure: Operation Date: 09/02/21 09:30 Proposed Procedures p EGD 38731/r10.11 Right upper quad pain R10.11(Not Applicable) - Hipolito Waller MD Familial anesthetic complications: None Was Beta Violet taken within 24 hours: N/A Was Clonidine taken within 24 hours: N/A Social: Social History: Alcohol and Tobacco Exam: Pre-Anes Outpt Exam: alert, oriented x 3, clear to auscultation bilaterally and regular rate & rhythm Airway: Submandibular: WNL Cervical ROM: WNL MP: 3 Dentition: Full Pulmonary: Pulmonary: Asthma and Sleep apnea (Uses CPAP) Comments: METS = 4 CV/HEM: CV/HEM: None reported Comments: EKG 05/19 SINUS RHYTHM LOW QRS VOLTAGE IN PRECORDIAL LEADS [QRS DEFLECTION < 1.0 mV IN CHEST LEADS] Compared to ECG 04/29/2020 14:48:05 No significant changes Electronically Signed On 05-07-2021 9:28:40 CDT by Greer Valencia M.D. [email or web address] : : None reported Hepatic: Hepatic: None reported GI: GI: GERD (Poorly controlled) Metabolic: Metabolic: DM (On insulin) and Thyroid (Hypothyroid ) Musc/skel: Musc/skel: None reported Neuropsych: Neuropsych: Anxiety and Depression Anesthetic Plan: ASA status: 3 (Morbidly obese 41 year old with daily smoking, KI using CPAP, DM, and poorly controlled GERD) Anesthesia: Anesthesia Evaluation, General and MAC Other: We discussed risk and benefits of MAC anesthesia including possible conversion to general as well as risk of recall of intraoperative stimuli including pain/discomfort. Patient agrees to proceed with MAC anesthesia. Risk of > 500 ml blood loss (7ml/kg in children): No PFSH Anesthesia PFSH: Medical History Depression Diabetes mellitus Hypertension Hypothyroid Mandibular fracture Surgical History H/O thyroidectomy Previous section S/P breast lumpectomy S/P cholecystectomy S/P tonsillectomy and adenoidectomy Family History Father Hypertension Cancer Cardiac abnormality Mother CHF (congestive heart failure) COPD (chronic obstructive pulmonary disease) Diabetes Social History Second hand smoke exposure: Yes Smoking risk assessment/counseling performed?: Yes Alcohol intake: current Alcohol intake frequency: holidays/special occasions only Alcohol type: wine Desire information about alcohol rehabilitation?: No Counseling given: Yes Desire information about substance/drug rehabilitation?: No Counseling given: Yes Adopted: No Caregiver/support person: No Lives independently: Yes Household members: spouse and family Housing: House Marital status: Number of children: 2 Number of grandchildren: 1 Highest education level completed: Some College, No Degree service: No Current occupational status: employed History of recent travel: No Sexually active: Yes Current gender identity: Female Balbina/Jehovah'S Witness: Rastafarian Special balbina needs: No Agree to transfusion: Yes Female Reproductive History: Date of last menstrual period: 09/29/20 Data Anesthesia Cardiac Studies: No Data to Display
[2021-09-02 08:56] VITALS: BP 134/88; PULSE 91; RESP 16; TEMP 36.6; O2SAT 90
[2021-09-02 09:07] VITALS: PULSE 90; RESP 18; O2SAT 91
[2021-09-02] MEDS: sodium chloride 0.9% 1,000 ML 30 ML IV (09:10)
[2021-09-02 09:12] VITALS: PULSE 95
[2021-09-02 09:25] LABS: Basophils # 0.1 10^3/uL (0.0-0.1); Basophils % 0.9 %; Eosinophils # 0.2 10^3/uL (0.0-0.8); Eosinophils % 1.3 %; Hemoglobin 14.8 g/dL (11.5-15.3); Lymphocytes # 2.5 10^3/uL (0.8-4.8); Lymphocytes % 17.9 %; Mean Corpuscular HGB Conc 32.9 g/dL (30.0-36.0); Mean Corpuscular Hemoglobin 27.7 pg (28.0-34.0); Mean Corpuscular Volume 84.1 fl (81-99); Mean Platelet Volume 10.5 fL (7.4-10.4); Monocytes # 0.9 10^3/uL (0.2-0.9); Monocytes % 6.8 %; Neutrophils # 10.02 10^3/uL (1.8-7.7); Neutrophils % 72.3 %; Nucleated Red Blood Cells % 0 %; Platelet Count 349 10^3/cmm (130-400); Red Blood Count 5.35 10^6/uL (4.1-5.3); Red Cell Distribution Width 13.7 % (12.1-15.1); White Blood Count 13.9 10^3/uL (4.0-10.0)
--- NOTE | 2021-09-02 09:28 | W.PM.OPSUD ---
Surgery/Procedure H&P Update DATE OF PROCEDURE: September 02, 2021 DATE H&P PERFORMED: 08/31/21 H&P UPDATE INFORMATION: I have reviewed H&P completed within last 30 days, I have examined patient prior to procedure and No changes to prior documentation PREOP DIAGNOSIS: upper gi symptoms PLANNED PROCEDURE: Operation Date: 09/02/21 09:30 Proposed Procedures p EGD 00179/r10.11 Right upper quad pain R10.11(Not Applicable) - Hipolito Waller MD
[2021-09-02 09:44] LABS: Alanine Aminotransferase 34 U/L (0-33); Albumin Level 4.4 g/dL (3.5-5.2); Alkaline Phosphatase 72 IU/L (35-105); Anion Gap 16.3 (5-19); Aspartate Amino Transferase 26 U/L (0-32); Blood Urea Nitrogen 7 mg/dL (6-20); Carbon Dioxide 24 mmol/L (22-29); Chloride 101 mmol/L (98-107); Globulin 3.1 g/dL (1.3-4.6); Glomerular Filtration Rate 137.4 mL/min (90-130); Glucose 97 mg/dL (65-115); Osmolality Calculated 282 mOsm/kg (285-295); Potassium 4.3 mmol/L (3.5-5.1); Sodium 137 mmol/L (136-145); Total Bilirubin 0.3 mg/dL (0.15-1.2); Total Protein 7.5 g/dL (6.6-8.7)
[2021-09-02 09:45] VITALS: BP 111/82; PULSE 93; RESP 16; TEMP 36.4; O2SAT 93
[2021-09-02 10:00] VITALS: BP 135/71; PULSE 87; RESP 18; O2SAT 95
--- NOTE | 2021-09-02 10:45 | ANE.PACU2 ---
Inpatient post-anesthesia follow up: Airway intact: Yes Vital signs: Temperature 97.6 F Pulse Rate 87 Respiratory Rate 18 Blood Pressure 135/71 Pulse Oximetry 95 Oxygen Delivery Me thod Room Air Oxygen Flow Rate Fraction of Inspir ed Oxygen Hydration adequate: Yes Nausea and vomiting: No Pain level: 1 Mental status: Baseline Additional Comments: EMR review
== END 2021-09-02 10:17 | disposition home or self-care (01) ==
PROVIDERS: PCP Clinical Nurse Specialist Adult Health; Visit Provider Surgery
PROC: 0DJ08ZZ Inspection of Upper Intestinal Tract, Via Natural or Artificial Opening Endoscopic (ICD-10-PCS; CPT 43235; principal; 2021-09-02 09:30)
DX: R10.11 Right upper quadrant pain (principal); K29.70 Gastritis, unspecified, without bleeding; K21.9 Gastro-esophageal reflux disease without esophagitis; E11.9 Type 2 diabetes mellitus without complications; Z79.4 Long term (current) use of insulin; E03.9 Hypothyroidism, unspecified; F41.9 Anxiety disorder, unspecified; F32.9 Major depressive disorder, single episode, unspecified; E66.01 Morbid (severe) obesity due to excess calories; Z68.42 Body mass index [BMI] 45.0-49.9, adult
CPT/HCPCS: 36415; 43239; 80053; 85025; 88305; 94640; 96360; J2704; J7030

== ENCOUNTER 2021-11-02 12:19 | Emergency (ER) | payer OTHER, SELFPAY ==
[2021-11-02 12:47] VITALS: BP 131/84; PULSE 89; RESP 16; TEMP 36.7; O2SAT 97; BMI 46.4
--- NOTE | 2021-11-02 13:07 | ED_ITS ---
HPI - General Adult General: Chief complaint: General Medical Stated complaint: Blood sugar issues Time Seen by Provider: 11/02/21 13:02 Source: patient Mode of arrival: ambulatory Limitations: no limitations History of Present Illness: 41-year-old female presents emergency room with elevated blood sugars generally not feeling well. She stopped using her insulin for last couple days because she had run on the needle she states her blood sugars been getting very high and very low and alternating. She denies any fever sweats chills she has had a little bit of a nonproductive cough she denies any dysuria urgency or frequency no vomiting or diarrhea. Onset (ago): day(s) Severity: mild Relieving factors: none Exacerbating factors: none Associated symptoms: Deny chest pain, confusion, cough, diaphoresis, decreased appetite, dyspnea, fevers/chills, headache(s), malaise, nausea, rash, palpitations, seizures, short of breath, syncope, vomiting or weakness Treatments prior to arrival: none Review of Systems Const: Denies: malaise or diaphoresis ENMT: Denies: throat pain, ear or mastoid pain, nasal discharge or nasal con gestion Card: Denies: chest pain, palpitations or syncope Resp: Denies: dyspnea GI: Denies: nausea or vomiting : Denies: flank pain, difficulty voiding, dysuria, urinary frequency or urinary urgency Skin/Breast: Denies: rash Neuro: Denies: headache(s) or confusion PFS ED PFSH: Medical History Depression Diabetes mellitus Helicobacter pylori gastritis Hypertension Hypothyroid Mandibular fracture Surgical History H/O esophagogastroduodenoscopy (09/02/21) H/O thyroidectomy Previous section S/P breast lumpectomy S/P cholecystectomy S/P tonsillectomy and adenoidectomy Family History Father Hypertension Cancer Cardiac abnormality Mother CHF (congestive heart failure) COPD (chronic obstructive pulmonary disease) Diabetes Social History Second hand smoke exposure: Yes Smoking risk assessment/counseling performed?: Yes Alcohol intake: current Alcohol intake frequency: holidays/special occasions only Alcohol type: wine Desire information about alcohol rehabilitation?: No Counseling given: Yes Desire information about substance/drug rehabilitation?: No Counseling given: Yes Adopted: No Caregiver/support person: No Lives independently: Yes Household members: spouse and family Housing: House Marital status: Number of children: 2 Number of grandchildren: 1 Highest education level completed: Some College, No Degree service: No Current occupational status: employed History of recent travel: No Sexually active: Yes Current gender identity: Female Balbina/Nondenominational: Zoroastrianism Special balbina needs: No Agree to transfusion: Yes Female Reproductive History: Date of last menstrual period: 09/29/20 Physical Exam Const: COMMON NORMALS: no acute distress GENERAL APPEARANCE: cooperative and comfortable ORIENTATION/CONSCIOUSNESS: Yes awake, Yes oriented to person, Yes oriented to place and Yes oriented to time HENMT: COMMON NORMALS: normocephalic, atraumatic and hearing grossly normal bilaterally HEAD & SCALP: normocephalic and atraumatic Neck/C-Spine: COMMON NORMALS: no JVD Resp: COMMON NORMALS: normal respiratory effort, No retractions, No use of accessory muscles and clear to auscultation bilaterally AUSCULTATION: clear to auscultation bilaterally Cardio: COMMON NORMALS: no JVD, regular rate, regular rhythm and No murmurs present (Cardio) RATE: regular rate RHYTHM: regular rhythm GI: COMMON NORMALS: Soft to palpation and No hepatosplenomegaly present AUSCULTATION: Yes normoactive bowel sounds PALPATION: Yes Soft to palpation, No Tenderness to palpation present (GI), No Guarding due to palpation present (GI) and Yes No hepatosplenomegaly present Extremity: COMMON NORMALS: normal to inspection, capillary refill normal, no clubbing, cyanosis or edema, no calf tenderness and no pedal edema Neuro: SENSORIUM/ORIENTATION: Yes oriented to person, Yes oriented to place and Yes oriented to time Skin: COMMON NORMALS: no rashes or lesions noted GENERAL SKIN EXAM: no rashes or lesions noted Course Vital Signs: Vital signs: Vital Signs Temperature 98.1 F 11/02/21 12:47 Pulse Rate 91 11/02/21 13:36 Respiratory Rate 16 11/02/21 13:36 Blood Pressure 131/84 11/02/21 13:36 Pulse Oximetry 99 11/02/21 13:36 MDM - General Adult Medical Decision Making Patient is having normal blood sugars at this time despite the fact she is not using Lantus last couple days. She does admit she has lost some weight recently. Would recommend for now that she hold off on resuming the Lantus continue the Ozempic and monitor blood sugars closely follow-up within the next week your primary care doctor reevaluate blood sugar control reviewed blood sugar logs. Continue the Ozempic and the Humalog. Medical Records I reviewed the patient's medical records. Lab Data I reviewed the patient's lab results. : 11/02/21 13:43 11/02/21 13:43 Radiology Impressions Chest X-Ray 11/02/21 13:15 IMPRESSION: No acute findings. Laboratory Results WBC 11.5 10^3/uL (4.0-10.0) H 11/02/21 13:43 RBC 5.04 10^6/uL (4.1-5.3) 11/02/21 13:43 Hgb 14.2 g/dL (11.5-15.3) 11/02/21 13:43 Hct 42.9 % (37.0-47.0) 11/02/21 13:43 MCV 85.1 fl (81-99) 11/02/21 13:43 MCH 28.2 pg (28.0-34.0) 11/02/21 13:43 MCHC 33.1 g/dL (30.0-36.0) 11/02/21 13:43 RDW 14.2 % (12.1-15.1) 11/02/21 13:43 Plt Count 313 10^3/cmm (130-400) 11/02/21 13:43 MPV 10.6 fL (7.4-10.4) H 11/02/21 13:43 Neut % (Auto) 58.1 % 11/02/21 13:43 Lymph % (Auto) 29.5 % 11/02/21 13:43 [place] % (Auto) 7.3 % 11/02/21 13:43 Eos % (Auto) 3.0 % 11/02/21 13:43 Baso % (Auto) 1.1 % 11/02/21 13:43 Neut # (Auto) 6.67 10^3/uL (1.8-7.7) 11/02/21 13:43 Lymph # (Auto) 3.4 10^3/uL (0.8-4.8) 11/02/21 13:43 [place] # (Auto) 0.8 10^3/uL (0.2-0.9) 11/02/21 13:43 Eos # (Auto) 0.3 10^3/uL (0.0-0.8) 11/02/21 13:43 Baso # (Auto) 0.1 10^3/uL (0.0-0.1) 11/02/21 13:43 Nucleated RBC % (auto) 0 % 11/02/21 13:43 Nucleated RBCs # 0.0 /100WBC 11/02/21 13:43 Sodium 138 mmol/L (136-145) 11/02/21 13:43 Potassium 4.1 mmol/L (3.5-5.1) 11/02/21 13:43 Chloride 101 mmol/L (98-107) 11/02/21 13:43 Carbon Dioxide 22 mmol/L (22-29) 11/02/21 13:43 Anion Gap 19.1 (5-19) H 11/02/21 13:43 BUN 9 mg/dL (6-20) 11/02/21 13:43 Creatinine 0.5 mg/dL (0.5-0.9) 11/02/21 13:43 GFR Calculation 137.4 mL/min (90-130) H 11/02/21 13:43 Glucose 90 mg/dL (65-115) 11/02/21 13:43 POC Glucose 88 mg/dL (70-110) 11/02/21 13:32 Calculated Osmolality 284 mOsm/kg (285-295) L 11/02/21 13:43 Calcium 8.7 mg/dL (8.5-10.5) 11/02/21 13:43 Total Bilirubin 0.2 mg/dL (0.15-1.2) 11/02/21 13:43 AST 17 U/L (0-32) 11/02/21 13:43 ALT 29 U/L (0-33) 11/02/21 13:43 Alkaline Phosphatase 66 IU/L (35-105) 11/02/21 13:43 Creatine Kinase 51 U/L (26-192) 11/02/21 13:43 Total Protein 7.3 g/dL (6.6-8.7) 11/02/21 13:43 Albumin 4.5 g/dL (3.5-5.2) 11/02/21 13:43 Globulin 2.8 g/dL (1.3-4.6) 11/02/21 13:43 Urine Color Straw (Yellow) 11/02/21 13:50 Urine Appearance Clear (CLEAR) 11/02/21 13:50 Urine pH 5 (5-7) 11/02/21 13:50 Ur Specific [place] 1.005 (1.005-1.030) 11/02/21 13:50 Urine Protein Neg (Negative) 11/02/21 13:50 Urine Glucose (UA) Norm (Normal) 11/02/21 13:50 Urine Ketones Negative (Negative) 11/02/21 13:50 Urine Blood Neg (Negative) 11/02/21 13:50 Urine Nitrate Negative (Negative) 11/02/21 13:50 Urine Bilirubin Neg (Negative) 11/02/21 13:50 Urine Urobilinogen Norm mg/dL (Negative) 11/02/21 13:50 Ur Leukocyte Esterase Negative (Negative) 11/02/21 13:50 Discharge Plan Discharge Patient Disposition: Home Clinical Impression: Diabetes mellitus Condition: Stable Prescriptions: Held Lantus Solostar U-100 Insulin 100 unit/mL (3 mL) insulin pen 10 unit SUBCUT BID 0RF Hold Instructions: Resume on 11/16/21. No Action omega-3 fatty acids [Fish Oil Concentrate] 1,000 mg capsule 1,000 mg PO BEDTIME 0RF insulin lispro [Humalog KwikPen Insulin] 100 unit/mL insulin pen 15 unit SUBCUT .tidac Qty: 30 3RF Rx Instructions: Administer 15 units subcut three times a day 15 minutes before meals. albuterol sulfate 2.5 mg /3 mL (0.083 %) Solution For Nebulization 2.5 mg inhalation Q4H PRN (Reason: Shortness Of Breath) 0RF acetaminophen [Tylenol Extra Strength] 500 mg Tablet 1,000 mg PO Q6H PRN (Reason: Pain) 0RF hydroxyzine HCl 25 mg Tablet 50 mg PO QID 0RF albuterol sulfate [Ventolin HFA] 90 mcg/actuation Hfa Aerosol Inhaler 2 puff INHALATION Q4H PRN (Reason: Shortness Of Breath) 0RF melatonin 5 mg Tablet 10 mg PO BEDTIME 0RF fluticasone propionate 50 mcg/actuation spray,suspension 1 - 2 spray INTRANASAL DAILY PRN (Reason: alternates with azelastine every other day) 0RF lamotrigine 100 mg tablet 200 mg PO BEDTIME 0RF metformin 500 mg tablet extended release 24 hr 1,000 mg PO BID 0RF lisinopril 20 mg Tablet 20 mg PO BEDTIME 0RF diphenhydramine HCl [Benadryl Allergy] 25 mg Tablet 25 - 50 mg PO PRN 0RF ibuprofen 800 mg tablet 800 mg PO Q8H PRN (Reason: pain) Qty: 20 0RF hydrocodone-acetaminophen 5-325 mg tablet 1 tab PO TID PRN (Reason: Pain) 0RF gabapentin 300 mg capsule See Rx Instructions .ROUTE .COMPLEX 0RF Rx Instructions: 300mg po qam and 600mg po bedtime ziprasidone HCl 60 mg capsule 60 mg PO BID 0RF folic acid 800 mcg Tablet 0.8 mg PO DAILY 0RF azelastine 205.5 mcg (0.15 %) spray,non-aerosol 2 spray INTRANASAL BID PRN (Reason: alternates with flonase every other day) 0RF Ozempic 1 mg/dose (4 mg/3 mL) pen injector 1 mg SUBCUT Q7D 0RF Rx Instructions: on tuesday levothyroxine 75 mcg tablet 75 mcg PO EVERY OTHER DAY 0RF Protonix 40 mg tablet,delayed release (DR/EC) 40 mg PO BID 0RF levothyroxine 200 mcg tablet 200 mcg PO EVERY OTHER DAY 0RF ondansetron 4 mg tablet,disintegrating 4 mg PO Q6H PRN (Reason: nausea and vomiting) 0RF Discharge Orders: Discharge ED (Routine); Ordered 11/02/21 Ordered By: David Wallace Referrals: Pierre Jaramillo [Primary Care Provider] - Discharge Diet: Usual diet Discharge Activity: Increase activity as tolerated Patient Instructions: Opioid Safety Activity Restrictions/Additional Instructions: Hold Lantus monitor blood sugars 4 times daily and use sliding scale Humalog to treat elevated blood sugars. Continue the Ozempic. Follow-up with your primary care doctor within the week to reevaluate blood sugar control. Be sure to bring your blood sugar log to your next doctor's appointment so they can assess. Coding Level of Care Code ED Maxillofacial Prosthetics Dentist for Chao 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
--- NOTE | 2021-11-02 13:15 | XRR_ITS ---
PROCEDURE INFORMATION: Exam: XR Chest Exam date and time: 11/02/2021 1:15 PM Age: 41 years old Clinical indication: Dyspnea; Prior surgery; Surgery type: RT breast lumpectomy; Patient HX: Blood sugar spiking since this am; SOB & phlegm; PT is diabetic TECHNIQUE: Imaging protocol: XR of the chest. Views: 1 view. COMPARISON: CR Chest 1 view [id number] 07/27/2021 7:10 PM FINDINGS: Lungs: Unremarkable. No consolidation. Pleural spaces: Unremarkable. No pleural effusion. No pneumothorax. Heart/Mediastinum: Unremarkable. No cardiomegaly. Bones/joints: Unremarkable. XR/XR chest 1V portable [id number] IMPRESSION: No acute findings.
[2021-11-02 13:36] VITALS: BP 131/84; PULSE 91; RESP 16; O2SAT 99
[2021-11-02 13:36] LABS: Glucose Point of Care 88 mg/dL (70-110)
[2021-11-02 13:49] LABS: Basophils # 0.1 10^3/uL (0.0-0.1); Basophils % 1.1 %; Eosinophils # 0.3 10^3/uL (0.0-0.8); Hematocrit 42.9 % (37.0-47.0); Hemoglobin 14.2 g/dL (11.5-15.3); Lymphocytes # 3.4 10^3/uL (0.8-4.8); Lymphocytes % 29.5 %; Mean Corpuscular HGB Conc 33.1 g/dL (30.0-36.0); Mean Corpuscular Hemoglobin 28.2 pg (28.0-34.0); Mean Corpuscular Volume 85.1 fl (81-99); Mean Platelet Volume 10.6 fL (7.4-10.4); Monocytes # 0.8 10^3/uL (0.2-0.9); Monocytes % 7.3 %; Neutrophils # 6.67 10^3/uL (1.8-7.7); Neutrophils % 58.1 %; Nucleated Red Blood Cells % 0 %; Platelet Count 313 10^3/cmm (130-400); Red Blood Count 5.04 10^6/uL (4.1-5.3); Red Cell Distribution Width 14.2 % (12.1-15.1); White Blood Count 11.5 10^3/uL (4.0-10.0)
[2021-11-02] MEDS: sodium chloride 0.9% 1,000 ML 999 ML IV (13:56)
[2021-11-02 14:03] LABS: Add Urine Microscopic? NO; Charge for UA Resulting for Rev
[2021-11-02 14:10] LABS: Alanine Aminotransferase 29 U/L (0-33); Albumin Level 4.5 g/dL (3.5-5.2); Alkaline Phosphatase 66 IU/L (35-105); Anion Gap 19.1 (5-19); Aspartate Amino Transferase 17 U/L (0-32); Blood Urea Nitrogen 9 mg/dL (6-20); Calcium 8.7 mg/dL (8.5-10.5); Carbon Dioxide 22 mmol/L (22-29); Chloride 101 mmol/L (98-107); Creatine Phosphokinase 51 U/L (26-192); Globulin 2.8 g/dL (1.3-4.6); Glomerular Filtration Rate 137.4 mL/min (90-130); Glucose 90 mg/dL (65-115); Osmolality Calculated 284 mOsm/kg (285-295); Potassium 4.1 mmol/L (3.5-5.1); Sodium 138 mmol/L (136-145); Total Bilirubin 0.2 mg/dL (0.15-1.2); Total Protein 7.3 g/dL (6.6-8.7)
[2021-11-02 14:11] LABS: Bilirubin Urine Neg (Negative); Blood Urine Neg (Negative); Glucose Urine UA Norm (Normal); Ketones Urine Negative (Negative); Leukocyte Esterase Urine Negative (Negative); Nitrate Urine Negative (Negative); Protein Urine Neg (Negative); Specific Gravity, Urine 1.005 (1.005-1.030); Urine Appearance Clear (CLEAR); Urine Color Straw (Yellow); Urobilinogen Urine Norm (Negative); pH Urine 5 (5-7)
== END 2021-11-02 14:53 | disposition home or self-care (01) ==
PROVIDERS: Emergency Provider Family Medicine; PCP Clinical Nurse Specialist Adult Health
DX: E11.9 Type 2 diabetes mellitus without complications (principal); Z79.84 Long term (current) use of oral hypoglycemic drugs; Z79.4 Long term (current) use of insulin; I10 Essential (primary) hypertension; Z77.22 Contact with and (suspected) exposure to environmental tobacco smoke (acute) (chronic)
CPT/HCPCS: 36416; 71045; 80053; 81003; 82550; 82962; 85025; 96360; 99283; J7030

== ENCOUNTER → 2021-11-19 16:30 | Outpatient (BNVA) | payer OTHER, SELFPAY | PROVIDERS: PCP Clinical Nurse Specialist Adult Health; Visit Provider Internal Medicine | DX: E03.9 Hypothyroidism, unspecified (principal); E11.9 Type 2 diabetes mellitus without complications | CPT/HCPCS: 36415; 80061; 83036; 84439; 84443 ==

== ENCOUNTER 2022-02-13 21:22 | Emergency (ER) | payer OTHER, SELFPAY ==
[2022-02-13 21:27] VITALS: BP 176/102; PULSE 96; RESP 18; TEMP 36.6; O2SAT 94
--- NOTE | 2022-02-13 21:48 | ED_ITS ---
HPI - Allergic Reaction General: Chief complaint: Allergic Reaction Stated complaint: stung/used epi pen Time Seen by Provider: 02/13/22 21:37 Source: patient Mode of arrival: ambulatory Limitations: no limitations History of Present Illness: HPI narrative: Patient is a 41-year-old female presents to ED today for evaluation of an allergic reaction following a bee/wasp sting. Patient states sting occurred approximately 1.5 hours ago to her back. She states immediately after the sting she began feeling like her chest was tight and she began having shortness of breath. She administered her EpiPen to her left lateral thigh. Patient also took 100 mg of Benadryl. Patient states she carries an EpiPen because she was told she had an anaphylactic reaction at the age of 9 following a bee sting. Patient has not had an anaphylactic reaction since then. She states upon arrival to the ED that she still feels short of breath and is having some chest tightness. Patient has history of COPD. No cardiac history. MD complaint: allergic reaction Onset (ago): hour(s) Exposure: insect bite (bee/wasp sting) Associated symptoms: Deny abdominal pain, dizziness, nausea or vomiting Treatment prior to arrival: benadryl and epinephrine Previous Allergic Reaction History: anaphylaxis (32 years ago at the age of 9) Review of Systems Eyes: Denies: change in vision ENMT: Denies: throat pain, odynophagia or swelling of lips/tongue Card: Reports: chest pain (reports chest tightness); Denies: palpitations, irregular heart rhythm, edema, swelling of feet/ankles, lightheadedness, syncope or pre-syncope Resp: Reports: dyspnea; Denies: productive cough, non-productive cough, wheezing, stridor, pain on inspiration, hemoptysis or chest congestion GI: Denies: abdominal pain, nausea, vomiting or diarrhea Musc: Denies: neck pain, back pain, extremity pain or joint pain Skin/Breast: Denies: rash Neuro: Denies: headache(s), numbness in extremities, weakness in extremities, sensory changes or dizziness PFS ED PFSH: Medical History Depression Diabetes mellitus Helicobacter pylori gastritis Hypertension Hypothyroid Mandibular fracture Surgical History H/O esophagogastroduodenoscopy (09/02/21) H/O thyroidectomy Previous section S/P breast lumpectomy S/P cholecystectomy S/P tonsillectomy and adenoidectomy Family History Father Hypertension Cancer Cardiac abnormality Mother CHF (congestive heart failure) COPD (chronic obstructive pulmonary disease) Diabetes Social History Second hand smoke exposure: Yes Smoking risk assessment/counseling performed?: Yes Alcohol intake: current Alcohol intake frequency: holidays/special occasions only Alcohol type: wine Desire information about alcohol rehabilitation?: No Counseling given: Yes Desire information about substance/drug rehabilitation?: No Counseling given: Yes Adopted: No Caregiver/support person: No Lives independently: Yes Household members: spouse and family Housing: House Marital status: Number of children: 2 Number of grandchildren: 1 Highest education level completed: Some College, No Degree service: No Current occupational status: employed History of recent travel: No Sexually active: Yes Current gender identity: Female Balbina/Rastafarian: Restorationism Special balbina needs: No Agree to transfusion: Yes Female Reproductive History: Date of last menstrual period: 09/29/20 Physical Exam Const: COMMON NORMALS: no acute distress, patient oriented x3, no limitations and alert GENERAL APPEARANCE: cooperative NUTRITIONAL APPEARANCE: obese ORIENTATION/CONSCIOUSNESS: Yes awake, Yes oriented to person, Yes oriented to place and Yes oriented to time HENMT: COMMON NORMALS: normocephalic and atraumatic HEAD & SCALP: normal to inspection, normocephalic and atraumatic FACE & SINUS: normal facial exam MOUTH: Normal oral and palatal mucosa present, lip normal, tongue normal and other (no angioedema) THROAT: posterior oropharynx normal, tonsils normal and uvula midline Eye: GENERAL EYE: appearance normal, both eyes and all related structures Neck/C-Spine: COMMON NORMALS: full ROM GENERAL: Yes normal visual inspection, No anterior neck swelling and No submandibular swelling Resp: COMMON NORMALS: normal respiratory effort and clear to auscultation bilaterally AUSCULTATION: clear to auscultation bilaterally Cardio: COMMON NORMALS: regular rate and regular rhythm RATE: regular rate RHYTHM: regular rhythm Extremity: COMMON NORMALS: normal to inspection Neuro: MICHEAL COMA SCALE: document GCS findings Micheal coma scale eye opening: Spontaneous Micheal coma scale verbal response: Orientated Wallis coma scale motor response: Obey commands Wallis coma scale total score: 15 COMMON NORMALS: patient oriented x3, moves all extremities, no focal motor deficits and no sensory deficits noted SENSORIUM/ORIENTATION: Yes alert, Yes oriented to person, Yes oriented to place and Yes oriented to time Skin: COMMON NORMALS: no rashes or lesions noted GENERAL SKIN EXAM: no rashes or lesions noted Course Reevaluation(s): Reevaluation #1: Following solu-medrol/pepcid. Patient states she is starting to feel better. She has no complaints of SOB or difficulty breathing at this time. Vital Signs: Vital signs: Vital Signs Temperature 98.1 F 02/14/22 00:31 Pulse Rate 79 02/14/22 00:31 Respiratory Rate 22 H 02/14/22 00:31 Blood Pressure 141/84 02/14/22 00:31 Pulse Oximetry 95 02/14/22 00:31 MDM - Allergic Reaction Medical Decision Making Patient self-administered EpiPen and took 100 mg of Benadryl prior to arrival to the ED. She was given 125 mg of Solu-Medrol and 40 mg of Pepcid here. She was monitored for over 3 hours following epi administration and continues to remain stable. Patient has no angioedema. She has no complaints of shortness of breath or difficulty breathing. Patient is stable for DC with strict return to ED precautions. Discharge Plan Discharge Patient Disposition: Home Clinical Impression: Allergic reaction to bee sting Condition: Stable Prescriptions: New EpiPen 2-Edward 0.3 mg/0.3 mL auto-injector 0.3 mg IM Q15M PRN (Reason: anaphylaxis) Qty: 2 0RF Rx Instructions: for 2 doses No Action omega-3 fatty acids [Fish Oil Concentrate] 1,000 mg capsule 1,000 mg PO BEDTIME 0RF Levemir FlexTouch U-100 Insuln 100 unit/mL (3 mL) insulin pen 5 unit SUBCUT DAILY Qty: 15 3RF Rx Instructions: Administer 5 units subcut daily. albuterol sulfate 2.5 mg /3 mL (0.083 %) Solution For Nebulization 2.5 mg inhalation Q4H PRN (Reason: Shortness Of Breath) 0RF acetaminophen [Tylenol Extra Strength] 500 mg Tablet 1,000 mg PO Q6H PRN (Reason: Pain) 0RF hydroxyzine HCl 25 mg Tablet 50 mg PO QID 0RF albuterol sulfate [Ventolin HFA] 90 mcg/actuation Hfa Aerosol Inhaler 2 puff INHALATION Q4H PRN (Reason: Shortness Of Breath) 0RF melatonin 5 mg Tablet 10 mg PO BEDTIME 0RF fluticasone propionate 50 mcg/actuation spray,suspension 1 - 2 spray INTRANASAL DAILY PRN (Reason: alternates with azelastine every other day) 0RF lamotrigine 100 mg tablet 200 mg PO BEDTIME 0RF metformin 500 mg tablet extended release 24 hr 1,000 mg PO BID 0RF lisinopril 20 mg Tablet 20 mg PO BEDTIME 0RF diphenhydramine HCl [Benadryl Allergy] 25 mg Tablet 25 - 50 mg PO PRN 0RF ibuprofen 800 mg tablet 800 mg PO Q8H PRN (Reason: pain) Qty: 20 0RF hydrocodone-acetaminophen 5-325 mg tablet 1 tab PO TID PRN (Reason: Pain) 0RF gabapentin 300 mg capsule See Rx Instructions .ROUTE .COMPLEX 0RF Rx Instructions: 300mg po qam and 600mg po bedtime ziprasidone HCl 60 mg capsule 60 mg PO BID 0RF folic acid 800 mcg Tablet 0.8 mg PO DAILY 0RF azelastine 205.5 mcg (0.15 %) spray,non-aerosol 2 spray INTRANASAL BID PRN (Reason: alternates with flonase every other day) 0RF Ozempic 1 mg/dose (4 mg/3 mL) pen injector 1 mg SUBCUT Q7D 0RF Rx Instructions: on tuesday levothyroxine 75 mcg tablet 75 mcg PO EVERY OTHER DAY 0RF Protonix 40 mg tablet,delayed release (DR/EC) 40 mg PO BID 0RF levothyroxine 200 mcg tablet 200 mcg PO EVERY OTHER DAY 0RF ondansetron 4 mg tablet,disintegrating 4 mg PO Q6H PRN (Reason: nausea and vomiting) 0RF Discharge Orders: Discharge ED (Routine); Ordered 02/14/22 Ordered By: Roxanne Dumont Patient Instructions: General Allergic Reaction (ED) Coding Level of Care Code ED Health Care Assistant for Chg 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
[2022-02-13] MEDS: famotidine 20 mg/2 mL INJ 40 MG IVP (22:02)
[2022-02-14 00:31] VITALS: BP 141/84; PULSE 79; RESP 22; TEMP 36.7; O2SAT 95
== END 2022-02-14 00:33 | disposition home or self-care (01) ==
PROVIDERS: Emergency Provider Physician Assistant
DX: T63.441A Toxic effect of venom of bees, accidental (unintentional), initial encounter (principal)
CPT/HCPCS: 96374; 96375; 99284; J2930; J3490

== ENCOUNTER 2022-02-15 10:01 | Outpatient (CLI) | payer OTHER, SELFPAY ==
[2022-02-15 10:50] LABS: Chol HDL Ratio 4.92 mg/dL (0.0-4.40); Cholesterol 182 mg/dL (0-200); Free T4 Free Thyroxine 1.96 ng/dL (0.82-1.77); HDL Cholesterol 37 mg/dL (60-100); LDL Cholesterol Calculated 87 mg/dL (50-129); LDL HDL Ratio 2.35 RATIO (0.00-3.22); Thyroid Stimulating Hormone 2.74 uIU/mL (0.27-4.20); Triglycerides 290 mg/dL (0-150)
[2022-02-15 10:55] LABS: Estmated Average Glucose 137; Hemoglobin A1C 6.4 % (4.0-6.0)
== END 2022-02-15 10:02 | disposition home or self-care (01) ==
LOC: LAB 10:03
PROVIDERS: Visit Provider Internal Medicine
DX: E03.9 Hypothyroidism, unspecified (principal); E11.9 Type 2 diabetes mellitus without complications
CPT/HCPCS: 36415; 80061; 83036; 84439; 84443

== ENCOUNTER 2022-02-22 16:33 | Outpatient (CLI) | payer OTHER, SELFPAY ==
--- NOTE | 2022-02-22 16:40 | XR_ITS ---
WS: [id number] XR lumbar spine 2-3V* [id number] REASON FOR EXAM: LUMBAGO WITH SCIATICA, LEFT SIDE FINDINGS: Normal lumbar spine curvature. Moderate compression deformities of T12 and L1 unchanged compared to 06/02/2011. No focal vertebral body lesion. Mild narrowing of the intervertebral disc spaces at T12-L1 and L1-L2. No change from 06/12/2011. No significant spondylolisthesis. XR/XR lumbar spine 2-3V* [id number] IMPRESSION: Old compression with mild narrowing of the disc spaces at the thoracolumbar brigid ction. No significant change compared to 06/02/2011.
--- NOTE | 2022-02-22 16:40 | XR_ITS ---
WS: [id number] XR hip LT 2-3V wo/w pel* [id number] REASON FOR EXAM: HIP JOINT PAIN, LEFT FINDINGS: No fracture. No focal bone lesion. Joint space appears relatively well preserved. Minimal subchondral sclerosis within the acetabulum wi th small marginal osteophyte. XR/XR hip LT 2-3V wo/w pel* [id number] IMPRESSION: Minimal change of osteoarthritis.
== END 2022-02-22 16:34 | disposition home or self-care (01) ==
PROVIDERS: PCP Clinical Nurse Specialist Adult Health; Visit Provider Clinical Nurse Specialist Adult Health
DX: M54.42 Lumbago with sciatica, left side (principal); M25.552 Pain in left hip
CPT/HCPCS: 72100; 73502

== ENCOUNTER 2022-04-12 16:11 | Outpatient (CLI) | payer OTHER, SELFPAY ==
[2022-04-12 17:38] LABS: Free T4 Free Thyroxine 1.84 ng/dL (0.82-1.77)
== END 2022-04-12 16:12 | disposition home or self-care (01) ==
PROVIDERS: PCP Clinical Nurse Specialist Adult Health; Visit Provider Internal Medicine
DX: E03.9 Hypothyroidism, unspecified (principal)
CPT/HCPCS: 36415; 84439

== ENCOUNTER 2022-06-02 14:36 | Outpatient (CLI) | payer OTHER, SELFPAY ==
--- NOTE | 2022-06-02 15:15 | MR_ITS ---
WS: [id number] MRI LEFT HIP without CONTRAST. COMPARISON: Prior MRI 09/03/2020 Multiplanar, multisequence imaging is performed without contrast. No marrow edema or fracture. Symmetric appearance of the hips. There is very minimal joint space narr owing. No joint effusion. No trochanteric bursitis. Muscles and soft tissues are symmetric bilaterall y. No signal abnormality noted within the labrum to suggest a tear. No soft tissue masses or adenopat hy surrounding the hip. No loose body in the joint space. There is a small cystic mass measuring 13 mm adjacent to the LEFT L5 vertebral body. This may be nerv e root sleeve diverticulum. Small RIGHT ovarian cyst with a maximum diameter of 2.5 cm. MR/MR hip LT wo con* [id number] IMPRESSION: 1. No marrow edema or fracture. 2. No labral abnormalities identified by MRI. 3. Small RIGHT ovarian cyst. 4. Cystic mass, 13 mm, adjacent to the LEFT lateral L5 vertebral body. 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 For further evaluation MRI lumbar spine could be obtained.
== END 2022-06-02 14:37 | disposition home or self-care (01) ==
LOC: RAD 14:37
PROVIDERS: PCP Clinical Nurse Specialist Adult Health; Visit Provider Family Medicine
DX: M25.552 Pain in left hip (principal); N83.201 Unspecified ovarian cyst, right side; M89.9 Disorder of bone, unspecified
CPT/HCPCS: 73721

== ENCOUNTER 2022-06-05 10:44 | Emergency (ER) | payer OTHER, SELFPAY ==
[2022-06-05 10:50] VITALS: BP 180/102; PULSE 90; RESP 16; TEMP 36.5; O2SAT 98; BMI 46.7
--- NOTE | 2022-06-05 11:01 | W.ED.GENADLT ---
HPI - General Adult General: Chief complaint: Back Pain/Injury Stated complaint: Abd pains Time Seen by Provider: 06/05/22 10:59 History of Present Illness: Patient is a 42-year-old female with a history renal colic presenting to the emergency room with complaints of left-sided back pain. Patient tells me she first began having pain around 7 PM on while sitting at home. Patient reports pain is very sharp intermittent colicky similar to her prior pain. patient was reports diarrhea with nausea. Patient denies any vomiting, new vaginal discharge or vaginal bleeding. Patient has any fevers or chills, abdominal pain, cough, runny nose, sore throat, chest pain, shortness breath or palpitation. Onset: 2 days ago Duration:2 days Location:home Severity:moderate Associated symptoms: Deny chest pain, dyspnea, nausea, rash, palpitations or vomiting Review of Systems Const: Denies: fever(s) or chills Eyes: Denies: change in vision ENMT: Denies: mouth pain Card: Denies: chest pain or palpitations Resp: Denies: dyspnea or non-productive cough GI: Denies: abdominal pain, nausea, vomiting or diarrhea : Reports: flank pain (+L flank pain) and dysuria Musc: Denies: extremity pain Skin/Breast: Denies: rash or new lesions Neuro: Denies: weakness in extremities Psych: Reports: other (Normal mood) Oneil/Lymph: Denies: easy bruising PFS ED PFSH: Medical History Depression Diabetes mellitus Helicobacter pylori gastritis Hypertension Hypothyroid Mandibular fracture Surgical History H/O esophagogastroduodenoscopy (09/02/21) H/O thyroidectomy History of mandibular surgery Previous section S/P breast lumpectomy S/P cholecystectomy S/P tonsillectomy and adenoidectomy Family History Father Hypertension Cancer Cardiac abnormality Mother CHF (congestive heart failure) COPD (chronic obstructive pulmonary disease) Diabetes Social History Smoking and tobacco status: current every day smoker Second hand smoke exposure: Yes Smoking risk assessment/counseling performed?: Yes Alcohol intake: current Alcohol intake frequency: holidays/special occasions only Alcohol type: wine Desire information about alcohol rehabilitation?: No Counseling given: Yes Desire information about substance/drug rehabilitation?: No Counseling given: Yes Adopted: No Caregiver/support person: No Lives independently: Yes Household members: spouse and family Housing: House Marital status: Number of children: 2 Number of grandchildren: 1 Highest education level completed: Some College, No Degree service: No Current occupational status: employed History of recent travel: No Sexually active: Yes Current gender identity: Female Balbina/Voodoo: Hindu Special balbina needs: No Agree to transfusion: Yes Physical Exam Const: COMMON NORMALS: alert HENMT: COMMON NORMALS: atraumatic HEAD & SCALP: atraumatic MOUTH: moist mucous membranes not abnormal Eye: COMMON NORMALS: EOMs intact bilaterally and conjunctivae normal CONJUNCTIVA: Yes conjunctivae normal Neck/C-Spine: COMMON NORMALS: full ROM and supple Resp: COMMON NORMALS: normal respiratory effort and clear to auscultation bilaterally AUSCULTATION: clear to auscultation bilaterally Cardio: COMMON NORMALS: regular rate RATE: regular rate GI: COMMON NORMALS: Soft to palpation and non-tender PALPATION: Yes Soft to palpation OTHER: No focal TTP. NO guarding rebound, guarding, rigidity. +L CVA tenderness to percussion. Neg Ward/Neg McBurney's point tenderness, no suprabupic tenderness to palpation. : OTHER: + Mild discomfort to the left glute upon palpation with reported paresthesia of the left leg. Patient has no visible fluctuance, induration, erythema or warmth of the left Extremity: COMMON NORMALS: full ROM Neuro: SENSORIUM/ORIENTATION: Yes alert MOTOR EXAM: No Abnormal motor strength present and Other motor observations present (no focal motor deficits) Psych: COMMON NORMALS: speech normal SPEECH: Yes normal speech MOOD & AFFECT: Yes euthymic mood Course Vital Signs: Vital signs: Vital Signs Temperature 97.7 F 06/05/22 10:50 Pulse Rate 83 06/05/22 15:30 Respiratory Rate 14 06/05/22 15:30 Blood Pressure 165/94 06/05/22 15:30 Pulse Oximetry 97 06/05/22 15:30 Oxygen Delivery Me thod 06/05/22 15:30 MDM - General Adult Medical Decision Making Patient is a 42-year-old female with a history renal colic presenting to the emergency room with complaints of left-sided back pain x 2 days. On exam, patient has left CVA tenderness. No other focal findings of abdominal tenderness to palpation. Lab work showed white count 12.8. UA is negative for any signs of kidney stones or UTI. CT abdomen pelvis without contrast did not show any signs of stone. Patient has chronic 0.6. At the present time it is unclear what is the cause of patient's pain. However given the fact the patient has reproducible glute pain, I suspect the patient may have an impinged nerve. Patient reports feeling symptomatic improved with pain medication. Given patient strict return precaution for any signs of worsening pain, fever/chills, inability to range or move, or any new or concerning complaints. Rx: norflex, tylenol, lidocaine patch, and menthol PRN pain Disposition: Discharge. Patient counseled regarding diagnostic impression, treatment plan. Patient given ED strict return precautions to return for continuation, worsening, or development of new symptoms. Instructed to f/u w/ PCP regarding symptoms today. Patient verbalized understanding. Lab Data : 06/05/22 11:30 06/05/22 11:30 Radiology Impressions Abdomen/Pelvis CT 06/05/22 12:37 IMPRESSION: 1. No hydronephrosis or urolithiasis to account for the reported symptomatology. 2. Additional findings as described above. Laboratory Results WBC 12.8 10^3/uL (4.0-10.0) H 06/05/22 11:30 RBC 5.42 10^6/uL (4.1-5.3) H 06/05/22 11:30 Hgb 14.6 g/dL (11.5-15.3) 06/05/22 11:30 Hct 45.4 % (37.0-47.0) 06/05/22 11:30 MCV 83.8 fl (81-99) 06/05/22 11:30 MCH 26.9 pg (28.0-34.0) L 06/05/22 11:30 MCHC 32.2 g/dL (30.0-36.0) 06/05/22 11:30 RDW 14.6 % (12.1-15.1) 06/05/22 11:30 Plt Count 368 10^3/cmm (130-400) 06/05/22 11:30 MPV 10.8 fL (7.4-10.4) H 06/05/22 11:30 Neut % (Auto) 70.7 % 06/05/22 11:30 Lymph % (Auto) 18.6 % 06/05/22 11:30 Mcclain % (Auto) 5.4 % 06/05/22 11:30 Eos % (Auto) 1.8 % 06/05/22 11:30 Baso % (Auto) 1.2 % 06/05/22 11:30 Neut # (Auto) 9.06 10^3/uL (1.8-7.7) H 06/05/22 11:30 Lymph # (Auto) 2.4 10^3/uL (0.8-4.8) 06/05/22 11:30 Mcclain # (Auto) 0.7 10^3/uL (0.2-0.9) 06/05/22 11:30 Eos # (Auto) 0.2 10^3/uL (0.0-0.8) 06/05/22 11:30 Baso # (Auto) 0.2 10^3/uL (0.0-0.1) H 06/05/22 11:30 Nucleated RBC % (auto) 0 % 06/05/22 11:30 Nucleated RBCs # 0.0 /100WBC 06/05/22 11:30 Sodium 138 mmol/L (136-145) 06/05/22 11:30 Potassium 4.4 mmol/L (3.5-5.1) 06/05/22 11:30 Chloride 102 mmol/L (98-107) 06/05/22 11:30 Carbon Dioxide 24 mmol/L (22-29) 06/05/22 11:30 Anion Gap 16.4 (5-19) 06/05/22 11:30 BUN 6 mg/dL (6-20) 06/05/22 11:30 Creatinine 0.6 mg/dL (0.5-0.9) 06/05/22 11:30 GFR Calculation 110.7 mL/min (90-130) 06/05/22 11:30 Glucose 154 mg/dL (65-115) H 06/05/22 11:30 Calculated Osmolality 287 mOsm/kg (285-295) 06/05/22 11:30 Calcium 9.2 mg/dL (8.5-10.5) 06/05/22 11:30 Total Bilirubin 0.2 mg/dL (0.15-1.2) 06/05/22 11:30 AST 22 U/L (0-32) 06/05/22 11:30 ALT 29 U/L (0-33) 06/05/22 11:30 Alkaline Phosphatase 93 U/L (35-105) 06/05/22 11:30 Total Protein 7.8 g/dL (6.6-8.7) 06/05/22 11:30 Albumin 4.2 g/dL (3.5-5.2) 06/05/22 11:30 Globulin 3.6 g/dL (1.3-4.6) 06/05/22 11:30 Lipase 20 U/L (13-60) 06/05/22 11:30 Urine Color Yellow (Yellow) 06/05/22 11:30 Urine Appearance Clear (CLEAR) 06/05/22 11:30 Urine pH 7 (5-7) 06/05/22 11:30 Ur Specific [place]by 1.005 (1.005-1.030) 06/05/22 11:30 Urine Protein Neg (Negative) 06/05/22 11:30 Urine Glucose (UA) Norm (Normal) 06/05/22 11:30 Urine Ketones Negative (Negative) 06/05/22 11:30 Urine Blood Neg (Negative) 06/05/22 11:30 Urine Nitrate Negative (Negative) 06/05/22 11:30 Urine Bilirubin Neg (Negative) 06/05/22 11:30 Urine Urobilinogen Neg mg/dL (Negative) 06/05/22 11:30 Ur Leukocyte Esterase Negative (Negative) 06/05/22 11:30 Urine HCG, Qual Negative (Negative) 06/05/22 11:30 Imaging Data Other Imaging: Radiologist's impression: [address] [place] [address] CT Scan Report Signed Patient: Lori Padron Unit #: [id number] : 1980 Age/Sex: 42 / F ADM Date: 06/05/22 Loc: ER Room/Bed: Attending Dr: Ordering Provider/Ordering MD: Yunior Marx MD Date of Service: 06/05/22 Procedure(s): CT abdomen pelvis wo con [id number] Accession Number(s): [id number] Report Number: [id number] PROCEDURE INFORMATION: Exam: CT Abdomen And Pelvis Without Contrast Exam date and time: 06/05/2022 12:58 PM Age: 42 years old Clinical indication: Abdominal pain; Flank; Left; Additional info: L flank pain TECHNIQUE: Imaging protocol: Computed tomography of the abdomen and pelvis without contrast. Radiation optimization: All CT scans at this facility use at least one of these dose optimization techniques: automated exposure control; mA and/or kV adjustment per patient size (includes targeted exams where dose is matched to clinical indication); or iterative reconstruction. COMPARISON: CT abdomen pelvis w con* [id number] 07/27/2021 5:48 PM RADIATION DOSE METRICS: Total DLP (mGy-cm): 1333.77 FINDINGS: Detailed evaluation of the abdominal and pelvic viscera is somewhat limited in the absence of intravenous contrast. Lungs: Interstitial prominence, mild airspace disease, and trace left pleural effusion. Liver: Fatty infiltration of the liver. Gallbladder and bile ducts: Status post cholecystectomy. Pancreas: No pancreatic mass or ductal dilatation. Spleen: Mildly enlarged spleen measuring 12.4 cm in length. Accessory spleens. Adrenal glands: Stable 1.9 cm left adrenal myelolipoma. Kidneys and ureters: Normal renal morphology. No hydronephrosis or urolithiasis. Stomach and bowel: No bowel dilatation. Appendix: No acute appendicitis. Intraperitoneal space: No significant free fluid. Vasculature: Vascular calcification. Normal caliber of the abdominal aorta. Lymph nodes: Subcentimeter lymph nodes. Urinary bladder: Nondistended bladder. Reproductive:? Punctate peripheral uterine calcification again demonstrated. Bones/joints: Schmorl's nodes and degenerative change. Soft tissues: Small umbilical hernia. Calcification at the gluteal muscle attachment site. CT/CT abdomen pelvis wo con [id number] IMPRESSION: 1. No hydronephrosis or urolithiasis to account for the reported symptomatology. 2. Additional findings as described above. ? Dictated By: Nish Wells MD Signed By: Nish Wells MD Signed Date/Time: 06/05/22 1521 DD/ 1258 Discharge Plan Discharge Patient Disposition: Home Clinical Impression: Flank pain, Gluteal pain Condition: Stable Prescriptions: New acetaminophen 500 mg tablet 500 mg PO Q6H PRN (Reason: pain) 5 Days Qty: 20 0RF Maalox Advanced 1,000-60 mg tablet,chewable 1 tab PO TID PRN (Reason: abdominal pain) 7 Days Qty: 21 0RF Pepcid 20 mg tablet 20 mg PO BID PRN (Reason: abdominal pain) 10 Days Qty: 20 0RF ondansetron 4 mg tablet,disintegrating 4 mg PO TID PRN (Reason: nausea and vomiting) 4 Days Qty: 12 0RF Biofreeze (menthol) 5 % gel 1 ea topical BID PRN (Reason: pain) 10 Days Qty: 1 0RF lidocaine 5 % adhesive patch,medicated 1 patch topical DAILY PRN (Reason: pain) 30 Days Qty: 30 0RF Rx Instructions: leave on most painful area for up to 12 hrs orphenadrine citrate 100 mg tablet extended release 100 mg PO BID PRN (Reason: pain) 10 Days Qty: 20 0RF No Action omega-3 fatty acids [Fish Oil Concentrate] 1,000 mg capsule 1,000 mg PO BEDTIME naproxen 500 mg tablet 500 mg PO BID diazepam 10 mg tablet 10 mg PO BID PRN (Reason: anxiety for procedure) Qty: 2 0RF Rx Instructions: take 30 min prior to procedure naproxen sodium 550 mg tablet 550 mg PO Q12H metformin 500 mg tablet extended release 24 hr 1,000 mg PO BID Qty: 240 3RF insulin glargine [Lantus Solostar U-100 Insulin] 100 unit/mL (3 mL) insulin pen 15 unit SUBCUT QAM 90 Days Qty: 15 3RF Rx Instructions: Inject 15 units subcut daily. hydroxyzine HCl 25 mg tablet 50 mg PO QID 30 Days Qty: 240 3RF ondansetron 4 mg tablet,disintegrating 4 mg PO Q6H PRN (Reason: nausea and vomiting) Qty: 60 1RF hydrocodone-acetaminophen 10-325 mg tablet 1 tab PO Q4H PRN (Reason: pain) 14 Days Qty: 30 0RF Ozempic 1 mg/dose (4 mg/3 mL) pen injector 1 mg SUBCUT Q7D Qty: 3 5RF Rx Instructions: on tuesday albuterol sulfate 2.5 mg /3 mL (0.083 %) Solution For Nebulization 2.5 mg inhalation Q4H PRN (Reason: Shortness Of Breath) acetaminophen [Tylenol Extra Strength] 500 mg Tablet 1,000 mg PO Q6H PRN (Reason: Pain) albuterol sulfate [Ventolin HFA] 90 mcg/actuation Hfa Aerosol Inhaler 2 puff INHALATION Q4H PRN (Reason: Shortness Of Breath) melatonin 5 mg Tablet 10 mg PO BEDTIME fluticasone propionate 50 mcg/actuation spray,suspension 1 - 2 spray INTRANASAL DAILY PRN (Reason: alternates with azelastine every other day) lamotrigine 100 mg tablet 200 mg PO BEDTIME lisinopril 20 mg Tablet 20 mg PO BEDTIME diphenhydramine HCl [Benadryl Allergy] 25 mg Tablet 25 - 50 mg PO PRN ibuprofen 800 mg tablet 800 mg PO Q8H PRN (Reason: pain) Qty: 20 0RF gabapentin 300 mg capsule See Rx Instructions .ROUTE .COMPLEX Rx Instructions: 300mg po qam and 600mg po bedtime ziprasidone HCl 60 mg capsule 60 mg PO BID folic acid 800 mcg Tablet 0.8 mg PO DAILY azelastine 205.5 mcg (0.15 %) spray,non-aerosol 2 spray INTRANASAL BID PRN (Reason: alternates with flonase every other day) levothyroxine 75 mcg tablet 75 mcg PO EVERY OTHER DAY Protonix 40 mg tablet,delayed release (DR/EC) 40 mg PO BID levothyroxine 200 mcg tablet 200 mcg PO EVERY OTHER DAY hydrocodone-acetaminophen 5-325 mg tablet 1 tab PO Q4H PRN (Reason: Pain) EpiPen 2-Edward 0.3 mg/0.3 mL auto-injector 0.3 mg IM Q15M PRN (Reason: anaphylaxis) Qty: 2 0RF Rx Instructions: for 2 doses Discharge Orders: Discharge ED (Routine); Ordered 06/05/22 Ordered By: Yunior Marx Referrals: Pierre Jaramillo, EQUIPMENT TECH [Primary Care Provider] - Discharge Diet: Advance as tolerated Discharge Activity: Increase activity as tolerated Patient Instructions: Abdominal Pain (ED) Activity Restrictions/Additional Instructions: Please come back if you have any worsening abdominal pain, fever or chills, nausea or vomiting, diarrhea, blood in the stool, inability hold down liquid or solids, or any new concerning complaints. Coding Level of Care Code ED Technology Support Analyst for Chg 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
[2022-06-05 11:20] VITALS: RESP 14; O2SAT 96
[2022-06-05] MEDS: morphine 4 mg/mL SDV 1 mL IVP ×2 (11:20→15:30)
[2022-06-05] MEDS: sodium chloride 0.9% 1,000 ML 999 ML IV ×3 (11:20→15:15)
[2022-06-05 11:55] LABS: Basophils # 0.2 10^3/uL (0.0-0.1); Basophils % 1.2 %; Eosinophils # 0.2 10^3/uL (0.0-0.8); Eosinophils % 1.8 %; Hematocrit 45.4 % (37.0-47.0); Hemoglobin 14.6 g/dL (11.5-15.3); Lymphocytes # 2.4 10^3/uL (0.8-4.8); Lymphocytes % 18.6 %; Mean Corpuscular HGB Conc 32.2 g/dL (30.0-36.0); Mean Corpuscular Hemoglobin 26.9 pg (28.0-34.0); Mean Corpuscular Volume 83.8 fl (81-99); Mean Platelet Volume 10.8 fL (7.4-10.4); Monocytes # 0.7 10^3/uL (0.2-0.9); Monocytes % 5.4 %; Neutrophils # 9.06 10^3/uL (1.8-7.7); Neutrophils % 70.7 %; Nucleated Red Blood Cells % 0 %; Platelet Count 368 10^3/cmm (130-400); Red Blood Count 5.42 10^6/uL (4.1-5.3); Red Cell Distribution Width 14.6 % (12.1-15.1); White Blood Count 12.8 10^3/uL (4.0-10.0)
[2022-06-05 12:11] LABS: Alanine Aminotransferase 29 U/L (0-33); Albumin Level 4.2 g/dL (3.5-5.2); Alkaline Phosphatase 93 U/L (35-105); Anion Gap 16.4 (5-19); Aspartate Amino Transferase 22 U/L (0-32); Blood Urea Nitrogen 6 mg/dL (6-20); Calcium 9.2 mg/dL (8.5-10.5); Carbon Dioxide 24 mmol/L (22-29); Chloride 102 mmol/L (98-107); Globulin 3.6 g/dL (1.3-4.6); Glomerular Filtration Rate 110.7 mL/min (90-130); Glucose 154 mg/dL (65-115); Lipase 20 U/L (13-60); Osmolality Calculated 287 mOsm/kg (285-295); Potassium 4.4 mmol/L (3.5-5.1); Sodium 138 mmol/L (136-145); Total Bilirubin 0.2 mg/dL (0.15-1.2); Total Protein 7.8 g/dL (6.6-8.7)
[2022-06-05 12:24] LABS: Add Urine Microscopic? NO; Charge for UA Resulting for Rev
[2022-06-05 12:30] LABS: Bilirubin Urine Neg (Negative); Blood Urine Neg (Negative); Glucose Urine UA Norm (Normal); Ketones Urine Negative (Negative); Leukocyte Esterase Urine Negative (Negative); Nitrate Urine Negative (Negative); Protein Urine Neg (Negative); Specific Gravity, Urine 1.005 (1.005-1.030); Urine Appearance Clear (CLEAR); Urine Color Yellow (Yellow); Urobilinogen Urine Neg (Negative); pH Urine 7 (5-7)
[2022-06-05] MEDS: ketorolac 30 mg/mL INJ IVP (12:36)
--- NOTE | 2022-06-05 12:37 | CTR_ITS ---
PROCEDURE INFORMATION: Exam: CT Abdomen And Pelvis Without Contrast Exam date and time: 06/05/2022 12:58 PM Age: 42 years old Clinical indication: Abdominal pain; Flank; Left; Additional info: L flank pain TECHNIQUE: Imaging protocol: Computed tomography of the abdomen and pelvis without contrast. Radiation optimization: All CT scans at this facility use at least one of these dose optimization techniques: automated exposure control; mA and/or kV adjustment per patient size (includes targeted exams where dose is matched to clinical indication); or iterative reconstruction. COMPARISON: CT abdomen pelvis w con* [id number] 07/27/2021 5:48 PM RADIATION DOSE METRICS: Total DLP (mGy-cm): 1333.77 FINDINGS: Detailed evaluation of the abdominal and pelvic viscera is somewhat limited in the absence of intravenous contrast. Lungs: Interstitial prominence, mild airspace disease, and trace left pleural effusion. Liver: Fatty infiltration of the liver. Gallbladder and bile ducts: Status post cholecystectomy. Pancreas: No pancreatic mass or ductal dilatation. Spleen: Mildly enlarged spleen measuring 12.4 cm in length. Accessory spleens. Adrenal glands: Stable 1.9 cm left adrenal myelolipoma. Kidneys and ureters: Normal renal morphology. No hydronephrosis or urolithiasis. Stomach and bowel: No bowel dilatation. Appendix: No acute appendicitis. Intraperitoneal space: No significant free fluid. Vasculature: Vascular calcification. Normal caliber of the abdominal aorta. Lymph nodes: Subcentimeter lymph nodes. Urinary bladder: Nondistended bladder. Reproductive: Punctate peripheral uterine calcification again demonstrated. Bones/joints: Schmorl's nodes and degenerative change. Soft tissues: Small umbilical hernia. Calcification at the gluteal muscle attachment site. CT/CT abdomen pelvis wo con [id number] IMPRESSION: 1. No hydronephrosis or urolithiasis to account for the reported symptomatology. 2. Additional findings as described above.
[2022-06-05 13:10] VITALS: BP 159/110; PULSE 75; RESP 14; O2SAT 93
[2022-06-05 14:31] VITALS: BP 171/102; PULSE 83; RESP 15; O2SAT 94
[2022-06-05 15:00] VITALS: BP 138/86; PULSE 78; RESP 15; O2SAT 92
[2022-06-05 15:30] VITALS: BP 165/94; PULSE 83; RESP 14; O2SAT 97; O2SAT 98
== END 2022-06-05 16:00 | disposition home or self-care (01) ==
PROVIDERS: Emergency Provider Emergency Medicine; PCP Clinical Nurse Specialist Adult Health
DX: R10.9 Unspecified abdominal pain (principal); M54.50 Low back pain, unspecified; F17.210 Nicotine dependence, cigarettes, uncomplicated; E11.9 Type 2 diabetes mellitus without complications; I10 Essential (primary) hypertension
CPT/HCPCS: 74176; 80053; 81003; 81025; 83690; 85025; 96361; 96374; 96375; 99285; J1885; J2270; J7030

== ENCOUNTER → 2022-06-09 15:27 | Outpatient (BNVA) | payer OTHER, SELFPAY | PROVIDERS: PCP Clinical Nurse Specialist Adult Health; Visit Provider Internal Medicine | DX: E11.9 Type 2 diabetes mellitus without complications (principal); E78.2 Mixed hyperlipidemia; E03.9 Hypothyroidism, unspecified | CPT/HCPCS: 36415; 80061; 83036; 84439; 84443 ==

== ENCOUNTER 2022-07-14 06:51 | Outpatient (CLI) | payer OTHER, SELFPAY ==
--- NOTE | 2022-07-14 07:00 | MR_ITS ---
WS: [id number] MRI LUMBAR SPINE WITH AND WITHOUT CONTRAST. HISTORY: lumbar spinal cyst COMPARISON: 05/08/2008 TECHNIQUE: Sagittal and axial multisequence imaging is submitted. MultiHance 20 mL IV. Straightening of the normal cervical lordosis. Mild straightening of the thoracic kyphosis. Lumbar vertebral bodies are normally aligned. Disc spaces are well preserved. No marrow edema or frac ture. Minimal disc narrowing and desiccation at T11-12 and T12-L1 Conus terminates normally at L1-2 disc level. L1-L2: Normal. L2-L3: Mild ligamentum flavum and facet arthritis. No stenosis. L3-L4: Mild to moderate ligamentum flavum and facet arthritis. Very mild encroachment by in the bilat eral foramina. No high-grade central stenosis. L4-L5: Mild disc bulging with mild to moderate ligamentum flavum and facet arthritis. Small amount of fluid in the LEFT facet joint. Mild RIGHT and moderate LEFT foraminal stenosis. L5-S1: Moderate facet joint arthritis, RIGHT greater than LEFT. No central disc protrusion or stenosi s. Mild bilateral foraminal stenosis, RIGHT greater than LEFT. Postcontrast imaging has also been performed. There is no evidence for discitis or osteomyelitis. The re is facet joint enhancement bilaterally at L4-5 most significant on the LEFT. No abscess identified . No enhancing masses. Asymmetric atrophy involving the paraspinal muscles. There is greater atrophy on the RIGHT. 3.7 cm LEFT ovarian cyst. MR/MR lumbar spine wo/w con [id number] IMPRESSION: 1. No lumbar spine fracture or enhancing mass. 2. Bilateral facet joint enhancement at L4-5 greatest on the LEFT consistent w ith acute synovitis. 3. Moderate LEFT and mild RIGHT foraminal stenosis at L4-5 due to combination of facet and osteophyte disease. 4. Bilateral foraminal stenosis at L5-S1, RIGHT greater than LEFT. 5. Mild foraminal encroachment at L3-4. 6. The facet joint arthritis and foraminal stenoses have increased since 2007.
[2022-07-14] MEDS: gadobenate dimeglumine 20 mL vial IV (07:52)
== END 2022-07-14 06:52 | disposition home or self-care (01) ==
LOC: RAD 06:51
PROVIDERS: PCP Clinical Nurse Specialist Adult Health; Visit Provider Family Medicine
DX: M71.38 Other bursal cyst, other site (principal); M79.18 Myalgia, other site; R10.9 Unspecified abdominal pain; M48.061 Spinal stenosis, lumbar region without neurogenic claudication; M48.07 Spinal stenosis, lumbosacral region
CPT/HCPCS: 72158; A9577

== ENCOUNTER 2022-08-23 13:52 | Inpatient (IN) | payer OTHER, SELFPAY ==
[2022-08-23] VITALS (61 sets, daily range): BP systolic 142–195; BP diastolic 82–106; PULSE 94–115; RESP 0–45; TEMP 36.7–37; O2SAT 87–95
--- NOTE | 2022-08-23 14:10 | XRR_ITS ---
PROCEDURE INFORMATION: Exam: XR Chest Exam date and time: 08/23/2022 2:19 PM Age: 42 years old Clinical indication: Shortness of breath; Additional info: SOB TECHNIQUE: Imaging protocol: Radiologic exam of the chest. Views: 1 view. COMPARISON: CR XR chest 1V portable [id number] 11/02/2021 1:43 PM FINDINGS: Lungs: Lung volumes are decreased which may in part be secondary to body habitus. There is diffuse haziness and ground-glass opacities both lung sullivan with peribronchial cuffing that has developed. Findings are nonspecific and may be secondary to pulmonary congestion, diffuse airway disease (bronchiolitis) or idiopathic interstitial lung disease. Continued follow-up or CT chest recommended for clarification. Pleural spaces: Unremarkable. No pleural effusion. No pneumothorax. Heart/Mediastinum: Cardiac silhouette is mildly enlarged but accentuated by portable technique and decreased lung volumes. Bones/joints: See Lungs finding. XR/XR chest 1V portable [id number] IMPRESSION: Mild cardiomegaly with nonspecific ground-glass opacities both lung sullivan as discussed above.
--- NOTE | 2022-08-23 14:10 | W.ED.SOB ---
HPI - SOB/Dyspnea General: Chief Complaint: Shortness of Breath/Dyspnea Stated Complaint: SOB Time Seen by Provider: 08/23/22 14:05 History of Present Illness: HPI Narrative: Patient comes in with shortness of breath. States for the past 4 days she has had fever, cough, congestion. States over the last 24 hours her breathing is gotten significantly worse. She does have a history of asthma/COPD. Associated symptoms: Reports fever(s); Deny abdominal pain, chest pain, nausea, palpitations, polyuria or vomiting Review of Systems Const: Reports: fever(s) and body aches Eyes: Denies: change in vision or blurry vision ENMT: Denies: throat pain or odynophagia Card: Denies: chest pain or palpitations Resp: Reports: dyspnea and productive cough GI: Denies: abdominal pain, nausea or vomiting : Denies: flank pain or dysuria Musc: Denies: neck pain or back pain Skin/Breast: Denies: rash or pruritus Neuro: Denies: headache(s) or numbness in extremities Psych: Denies: anxiety or change in appetite Endo: Denies: polyuria or excessive sweating PFSH ED PFSH: Medical History Allergic rhinitis Bipolar 1 disorder Chronic urticaria Depression Diabetes mellitus Type 2 GERD (gastroesophageal reflux disease) Helicobacter pylori gastritis Hyperlipemia, mixed Hypertension Hyponatremia Hypothyroid Insomnia Labral tear of left hip joint Mandibular fracture Mild intermittent asthma Morbid obesity KI (obstructive sleep apnea) PTSD (post-traumatic stress disorder) Shingles 4th occurrence Surgical History H/O esophagogastroduodenoscopy (09/02/21) H/O thyroidectomy History of mandibular surgery Previous section S/P breast lumpectomy S/P cholecystectomy S/P tonsillectomy and adenoidectomy Family History Father Hypertension Cancer Cardiac abnormality Mother CHF (congestive heart failure) COPD (chronic obstructive pulmonary disease) Diabetes Social History (Updated 08/18/22 @ 09:44 by Na Drake LPN) Smoking and tobacco status: current every day smoker cigarettes Packs smoked per day: 1 Smoking risk assessment/counseling performed?: Yes Alcohol intake: current Alcohol intake frequency: holidays/special occasions only Alcohol type: wine Desire information about alcohol rehabilitation?: No Counseling given: Yes Desire information about substance/drug rehabilitation?: No Counseling given: Yes Adopted: No Caregiver/support person: No Lives independently: Yes Household members: spouse and family Housing: House Marital status: Number of children: 2 Number of grandchildren: 1 Highest education level completed: Some College, No Degree service: No Current occupational status: employed History of recent travel: No Sexually active: Yes Current gender identity: Female Balbina/Mu-Ism: Religious Special balbina needs: No Agree to transfusion: Yes Female Reproductive History: Date of last menstrual period: 09/29/20 Physical Exam Const: COMMON NORMALS: patient oriented x3, healthy appearing and alert OTHER: Mild respiratory distress HENMT: COMMON NORMALS: normocephalic and atraumatic HEAD & SCALP: normocephalic and atraumatic Eye: COMMON NORMALS: Equal, round and reactive pupils present and EOMs intact bilaterally PUPIL: Yes Equal, round and reactive pupils present OTHER: Bilateral glassy eyed appearance Neck/C-Spine: COMMON NORMALS: full ROM and supple Resp: OTHER: expiratory wheezes and poor air movement throughout. She is tachypneic Cardio: COMMON NORMALS: regular rhythm RHYTHM: regular rhythm OTHER: Tachycardia GI: COMMON NORMALS: Normal to inspection, nondistended, normoactive bowel sounds present, Soft to palpation and non-tender PALPATION: Yes Soft to palpation Back/Pelvis: COMMON NORMALS: thoracic and lumbar spine normal to inspection and no thoracic nor lumbar tenderness Extremity: COMMON NORMALS: normal to inspection and full ROM Neuro: COMMON NORMALS: patient oriented x3 SENSORIUM/ORIENTATION: Yes alert Psych: COMMON NORMALS: mental status grossly normal and cooperative Skin: COMMON NORMALS: no rashes or lesions noted and no wounds GENERAL SKIN EXAM: no rashes or lesions noted Course Vital Signs: Vital signs: Vital Signs Temperature 98.0 F 08/23/22 13:58 Pulse Rate 101 H 08/23/22 15:43 Respiratory Rate 24 H 08/23/22 15:43 Blood Pressure 187/92 08/23/22 14:45 Pulse Oximetry 93 08/23/22 15:43 Oxygen Delivery Me thod 08/23/22 15:43 Oxygen Flow Rate 5 08/23/22 15:43 MDM - SOB/Dyspnea Medical Decision Making Patient comes in with shortness of breath. States for the past 4 days she has had fever, cough, congestion. States over the last 24 hours her breathing is gotten significantly worse. She does have a history of asthma/COPD. On physical exam she is in mild respiratory distress with expiratory wheezes and poor air movement throughout. She is tachypneic and tachycardic. We will check labs, give DuoNeb, steroids, check x-ray, and reassess. On reassessment I talked to the patient about the test results. She continues to require supplemental oxygen. We will start antibiotics for possible pneumonia. I discussed the case with the hospitalist, and we will admit for further work-up and treatment. Lab Data 08/23/22 14:35 08/23/22 14:35 Labs/Radiology: Radiology Impressions Chest X-Ray 08/23/22 14:10 IMPRESSION: Mild cardiomegaly with nonspecific ground-glass opacities both lung sullivan as discussed above. Laboratory Results WBC 18.8 10^3/uL (4.0-10.0) H 08/23/22 14:35 RBC 4.77 10^6/uL (4.1-5.3) 08/23/22 14:35 Hgb 13.0 g/dL (11.5-15.3) 08/23/22 14:35 Hct 40.0 % (37.0-47.0) 08/23/22 14:35 MCV 83.9 fl (81-99) 08/23/22 14:35 MCH 27.3 pg (28.0-34.0) L 08/23/22 14:35 MCHC 32.5 g/dL (30.0-36.0) 08/23/22 14:35 RDW 15.0 % (12.1-15.1) 08/23/22 14:35 Plt Count 343 10^3/cmm (130-400) 08/23/22 14:35 MPV 10.4 fL (7.4-10.4) 08/23/22 14:35 Neut % (Auto) 82.7 % 08/23/22 14:35 Lymph % (Auto) 10.6 % 08/23/22 14:35 Kaufman % (Auto) 5.0 % 08/23/22 14:35 Eos % (Auto) 0.5 % 08/23/22 14:35 Baso % (Auto) 0.5 % 08/23/22 14:35 Neut # (Auto) 15.54 10^3/uL (1.8-7.7) H 08/23/22 14:35 Lymph # (Auto) 2.0 10^3/uL (0.8-4.8) 08/23/22 14:35 Kaufman # (Auto) 0.9 10^3/uL (0.2-0.9) 08/23/22 14:35 Eos # (Auto) 0.1 10^3/uL (0.0-0.8) 08/23/22 14:35 Baso # (Auto) 0.1 10^3/uL (0.0-0.1) 08/23/22 14:35 Nucleated RBC % (auto) 0 % 08/23/22 14:35 Nucleated RBCs # 0.0 /100WBC 08/23/22 14:35 Sodium 139 mmol/L (136-145) 08/23/22 14:35 Potassium 4.0 mmol/L (3.5-5.1) 08/23/22 14:35 Chloride 104 mmol/L (98-107) 08/23/22 14:35 Carbon Dioxide 24 mmol/L (22-29) 08/23/22 14:35 Anion Gap 15.0 (5-19) 08/23/22 14:35 BUN 6 mg/dL (6-20) 08/23/22 14:35 Creatinine 0.5 mg/dL (0.5-0.9) 08/23/22 14:35 GFR Calculation 136.6 mL/min (90-130) H 08/23/22 14:35 Glucose 91 mg/dL (65-115) 08/23/22 14:35 Calculated Osmolality 285 mOsm/kg (285-295) 08/23/22 14:35 Calcium 9.2 mg/dL (8.5-10.5) 08/23/22 14:35 Total Bilirubin 0.2 mg/dL (0.15-1.2) 08/23/22 14:35 AST 19 U/L (0-32) 08/23/22 14:35 ALT 19 U/L (0-33) 08/23/22 14:35 Alkaline Phosphatase 81 U/L (35-105) 08/23/22 14:35 Total Protein 7.8 g/dL (6.6-8.7) 08/23/22 14:35 Albumin 4.3 g/dL (3.5-5.2) 08/23/22 14:35 Globulin 3.5 g/dL (1.3-4.6) 08/23/22 14:35 Influenza Type A Ag negative (Negative) 08/23/22 15:27 Influenza Type B Ag negative (Negative) 08/23/22 15:27 Discharge Plan Discharge Patient Disposition: Admitted As Inpatient Clinical Impression: Acute exacerbation of chronic obstructive airways disease, Hypoxia Condition: Stable Coding Level of Care Code 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
[2022-08-23] MEDS: ipratropium-albuterol 3 mL Neb INHALATION ×2 (14:30→21:08)
[2022-08-23] MEDS: magnesium sulfate premix 2 GM/50 ML PIGGYBACK IV (14:44)
[2022-08-23 14:46] LABS: Basophils # 0.1 10^3/uL (0.0-0.1); Basophils % 0.5 %; Eosinophils # 0.1 10^3/uL (0.0-0.8); Eosinophils % 0.5 %; Lymphocytes % 10.6 %; Mean Corpuscular HGB Conc 32.5 g/dL (30.0-36.0); Mean Corpuscular Hemoglobin 27.3 pg (28.0-34.0); Mean Corpuscular Volume 83.9 fl (81-99); Mean Platelet Volume 10.4 fL (7.4-10.4); Monocytes # 0.9 10^3/uL (0.2-0.9); Neutrophils # 15.54 10^3/uL (1.8-7.7); Neutrophils % 82.7 %; Nucleated Red Blood Cells % 0 %; Platelet Count 343 10^3/cmm (130-400); Red Blood Count 4.77 10^6/uL (4.1-5.3); White Blood Count 18.8 10^3/uL (4.0-10.0)
[2022-08-23 15:03] LABS: Alanine Aminotransferase 19 U/L (0-33); Albumin Level 4.3 g/dL (3.5-5.2); Alkaline Phosphatase 81 U/L (35-105); Aspartate Amino Transferase 19 U/L (0-32); Blood Urea Nitrogen 6 mg/dL (6-20); Calcium 9.2 mg/dL (8.5-10.5); Carbon Dioxide 24 mmol/L (22-29); Chloride 104 mmol/L (98-107); Globulin 3.5 g/dL (1.3-4.6); Glomerular Filtration Rate 136.6 mL/min (90-130); Glucose 91 mg/dL (65-115); Osmolality Calculated 285 mOsm/kg (285-295); Sodium 139 mmol/L (136-145); Total Bilirubin 0.2 mg/dL (0.15-1.2); Total Protein 7.8 g/dL (6.6-8.7)
[2022-08-23] MEDS: albuterol 2.5 mg/3 mL Neb 10 MG INHALATION (15:43)
[2022-08-23 16:03] LABS: Influenza A by IFA negative (Negative); Influenza B by IFA negative (Negative)
[2022-08-23 17:32] LABS: Adenovirus Not Detected (NOT DETECT); Chlamydia Pneumoniae Not Detected (NOT DETECT); Coronavirus 229E,HKU1,NL63,OC4 Not Detected (NOT DETECT); Human Metapneumovirus Not Detected (NOT DETECT); Human Rhinovirus/Enterovirus Detected (NOT DETECT); Influenza A Not Detected (NOT DETECT); Influenza A H1 Not Detected (NOT DETECT); Influenza A H1-2009 Not Detected (NOT DETECT); Influenza A H3 Not Detected (NOT DETECT); Influenza B Not Detected (NOT DETECT); Mycoplasma Pneumoniae Not Detected (NOT DETECT); Parainfluenza Virus Type 1 Not Detected (NOT DETECT); Parainfluenza Virus Type 2 Not Detected (NOT DETECT); Parainfluenza Virus Type 3 Not Detected (NOT DETECT); Parainfluenza Virus Type 4 Not Detected (NOT DETECT); Respiratory Syncytial Virus A Not Detected (NOT DETECT); Respiratory Syncytial Virus B Not Detected (NOT DETECT); SARS-COV-2 Not Detected (NOT DETECT)
[2022-08-23 17:38] LABS: Human Metapneumovirus Not Detected (NOT DETECT); Human Rhinovirus/Enterovirus Detected (NOT DETECT); Results from GEN
--- NOTE | 2022-08-23 17:40 | CTR_ITS ---
PROCEDURE INFORMATION: Exam: CTA Chest With Contrast Exam date and time: 08/23/2022 5:44 PM Age: 42 years old Clinical indication: Cough and fever and shortness of breath; Additional info: Pna TECHNIQUE: Imaging protocol: Computed tomographic angiography of the chest with contrast. 3D rendering (Not supervised by radiologist): MIP and/or 3D reconstructed images were created by the technologist. Radiation optimization: All CT scans at this facility use at least one of these dose optimization techniques: automated exposure control; mA and/or kV adjustment per patient size (includes targeted exams where dose is matched to clinical indication); or iterative reconstruction. Contrast material: OMNIPAQUE 350; Contrast volume: 95 ml; Contrast route: INTRAVENOUS (IV); COMPARISON: CT angio chest PE protcl [id number] 04/29/2020 4:46 PM RADIATION DOSE METRICS: Total DLP (mGy-cm): 1471.18 FINDINGS: Pulmonary arteries: Main pulmonary trunk, right and left pulmonary arteries, interlobar branches and 1st order segmental branches are adequately opacified without filling defects or other evidence of acute pulmonary embolism. However more distal subsegmental branches cannot be adequately assessed due to technical limitations of the study. Aorta: Unremarkable. No aortic aneurysm. No aortic dissection. Lungs: Lung volumes are decreased. There is interval development of diffuse perihilar ground-glass opacities fairly symmetric in distribution, nonspecific. Findings may be secondary to diffuse pneumonitis from atypical infectious agent including viral pneumonitis. Inflammatory process such is BOOP and alveolar formal sarcoidosis are also considerations. Pleural spaces: Mild smooth pleural thickening along the paravertebral gutters otherwise pleural surfaces are unremarkable. No significant pleural effusions. Heart: Heart is mildly enlarged, stable. No significant pericardial effusion. No significant coronary artery calcifications. Lymph nodes: Mild mediastinal and bilateral hilar lymphadenopathy mildly progressed from previous exam. Liver: Liver is partially visualized and appears enlarged. Bones/joints: Unremarkable. No acute fracture. Soft tissues: Unremarkable. CT/CT angio chest PE protcl [id number] IMPRESSION: 1. Technically limited but negative CT angiogram of the chest. No evidence of acute pulmonary embolism to major branches of the pulmonary vascular tree. 2. Interval development of diffuse perihilar ground-glass opacities, nonspecific in distribution and appearance as discussed above. Continued follow-up advised. 3. Mild mediastinal and hilar lymphadenopathy that may be related to the lung pathology and also needs follow-up for clarification. 4. Mild cardiomegaly with decreased lung volumes, stable.
--- NOTE | 2022-08-23 17:45 | P.HP_ITS ---
Providers/Chief Complaint Primary Care Provider: Pierre Jaramillo Chief Complaint: SOB History of Present Illness Lori Padron is a 42 year old female who is a current smoker, vapes daily with past medical history obstructive sleep apnea on CPAP, type 2 diabetes mellitus, hyperlipidemia, shingles with postherpetic neuralgia, hypothyroidism, hypertension who presented to the ER today because of worsening shortness of breath over the last 1 week acutely worse since last 24 hours along with worsening of cough and change in the voice. In the ER patient required up to 5 L of oxygen supplementation with significant desaturation on minimal ambulation hence hospitalist service was called for admission. Review of Systems General: Reports: 10 or more systems reviewed and unremarkable except in HPI and below Const: Denies: fever(s), chills, body aches, change in appetite, change in weight, malaise, night sweats, diaphoresis, change in sleep pattern, daytime sleepiness or snoring Eyes: Denies: change in vision, blurry vision, photophobia, eye discomfort or eye discharge ENMT: Denies: throat pain, enlarged tonsils, hoarseness, mouth pain, oral sores, dry mouth, tinnitus, nasal congestion or post nasal drip Card: Denies: chest pain, palpitations, irregular heart rhythm, edema, swelling of feet/ankles, lightheadedness, syncope, pre-syncope, dyspnea on exertion, orthopnea, leg pain with exertion or acrocyanosis Resp: Denies: dyspnea, productive cough, non-productive cough, wheezing, stridor, pain on inspiration, change in phlegm color, hemoptysis or chest congestion GI: Denies: abdominal pain, nausea, vomiting, hematemesis, coffee ground emesis, dysphagia, heartburn, diarrhea, constipation, bloating, GI cramping, change in bowel habits, pain on defecation, hematochezia or melena : Denies: flank pain, dysuria, urinary frequency, urinary urgency, urinary hesitancy, nocturia or hematuria Musc: Denies: neck pain, back pain, extremity pain, joint pain, joint swelling, joint redness, joint stiffness or limited range of motion Neuro: Denies: headache(s), numbness in extremities, weakness in extremities, sensory changes, lack of coordination, difficulty walking, frequent falls, dizziness, vertigo, confusion, Slurred speech present, difficulty communicating thoughts or seizure-like activity Psych: Denies: anxiety, depression, mood swings, panic attacks, hopelessness or irritability Endo: Denies: polyuria, polydipsia, tired all the time, cold intolerance, excessive sweating, flushing or heat intolerance Oneil/Lymph: Denies: easy bruising or easy bleeding All/Imm: Denies: tongue swelling, facial swelling or acute wheezing Medications/Allergies Home Medications Medication Instructions Recorded Confirmed Last Taken Type fluticasone propionate 50 1 - 2 spray intranasal DAILY PRN 12/24/19 08/24/22 09/01/21 History mcg/actuation nasal alternates with azelastine every spray,suspension other day lamotrigine 100 mg tablet 200 mg PO BEDTIME 12/24/19 08/24/22 11/01/21 History diphenhydramine HCl 25 mg tablet 25 - 50 mg PO PRN 04/08/20 08/24/22 04/28/20 History (Benadryl Allergy) lisinopril 20 mg tablet 20 mg PO BEDTIME 04/08/20 08/24/22 11/01/21 History acetaminophen 500 mg tablet 1,000 mg PO Q6H PRN Pain 12/11/20 08/24/22 12/11/20 09:00 History (Tylenol Extra Strength) albuterol sulfate 90 mcg/actuation 2 puff inhalation Q4H PRN 12/11/20 08/24/22 Unknown History aerosol inhaler (Ventolin HFA) Shortness Of Breath melatonin 5 mg tablet 10 mg PO BEDTIME 12/11/20 08/24/22 11/01/21 History omega-3 fatty acids 1,000 mg 500 mg PO BEDTIME 06/08/21 08/24/22 11/01/21 History capsule (Fish Oil Concentrate) ibuprofen 800 mg tablet 800 mg PO Q8H PRN pain #20 tabs 06/10/21 08/24/22 Unknown Rx azelastine 205.5 mcg (0.15 %) 2 spray intranasal BID PRN 11/02/21 08/24/22 Unknown History nasal spray alternates with flonase every other day levothyroxine 200 mcg tablet 200 mcg PO DAILY 11/02/21 08/24/22 11/02/21 History levothyroxine 75 mcg tablet See Rx Instructions .Route .COMPLEX 11/02/21 08/24/22 11/01/21 History pantoprazole 40 mg tablet,delayed 40 mg PO BID 11/02/21 08/24/22 11/02/21 06:30 History release (Protonix) epinephrine 0.3 mg/0.3 mL 0.3 mg (0.3 mL) IM Q15M PRN 02/13/22 08/24/22 Unknown Rx injection, auto-injector (EpiPen anaphylaxis #2 ea 2-Edward) metformin 500 mg tablet,extended 1,000 mg PO BID #240 tabs 03/22/22 08/24/22 Unknown Rx release 24 hr ondansetron 4 mg disintegrating 4 mg PO Q6H PRN nausea and 03/30/22 08/24/22 Unknown Rx tablet vomiting #60 tabs semaglutide 1 mg/dose (4 mg/3 mL) 1 mg (0.75 mL) SUBCUT Q7D #3 mL 05/19/22 08/24/22 Unknown Rx subcutaneous pen injector (Ozempic) atorvastatin 20 mg tablet 20 mg PO DAILY #90 tabs 06/11/22 08/24/22 Unknown Rx triamcinolone acetonide 0.1 % 1 applic topical BID #30 grams 06/14/22 08/24/22 Unknown Rx topical cream gabapentin 600 mg tablet 600 mg PO DAILY #30 tabs 07/22/22 08/24/22 Unknown Rx celecoxib 100 mg capsule 100 mg PO BID for hip pain #60 caps 08/02/22 08/24/22 Unknown Rx hydroxyzine HCl 25 mg tablet 50 mg PO QID 30 days #240 tabs 08/02/22 08/24/22 Unknown Rx albuterol sulfate 2.5 mg/3 mL 2.5 mg (3 mL) inhalation Q4H PRN 08/10/22 08/24/22 Unknown Rx (0.083 %) solution for nebulization Shortness Of Breath #90 mL buspirone 10 mg tablet 20 mg PO TID 08/18/22 08/24/22 Unknown History docusate sodium 100 mg capsule 200 mg PO DAILY 08/18/22 08/24/22 Unknown History (Colace) insulin glargine 100 unit/mL (3 46 unit SUBCUT QAM 08/24/22 08/24/22 Unknown History mL) subcutaneous pen (Lantus Solostar U-100 Insulin) ziprasidone HCl 80 mg capsule 80 mg PO BID 08/24/22 08/24/22 Unknown History Allergies Allergy/AdvReac Type Severity Reaction Status Date / Time amoxicillin Allergy ALGY-Rash Verified 08/18/22 09:39 bee venom protein (honey bee) Allergy ALGY-Anaphy Verified 08/18/22 09:39 laxis cinnamon Allergy anaphylacti Verified 08/18/22 09:39 c desvenlafaxine [From Pristiq] Allergy Unknown Verified 08/18/22 09:39 fluoxetine [From Prozac] Allergy Unknown Verified 08/18/22 09:39 Latex, Natural Rubber Allergy ALGY-Rash Verified 08/18/22 09:39 oxytocin [From Pitocin] Allergy ADR-Itching Verified 08/18/22 09:39 Penicillins Allergy ALGY-Hives Verified 08/18/22 09:39 Sulfa (Sulfonamide Allergy ALGY-Rash Verified 08/18/22 09:39 Antibiotics) PFSH Acute PFSH: Medical History (Updated 08/23/22 @ 17:46 by Walter Duran MD) Allergic rhinitis Bipolar 1 disorder Chronic urticaria Depression Diabetes mellitus Type 2 GERD (gastroesophageal reflux disease) Helicobacter pylori gastritis Hyperlipemia, mixed Hypertension Hyponatremia Hypothyroid Insomnia Labral tear of left hip joint Mandibular fracture Mild intermittent asthma Morbid obesity KI (obstructive sleep apnea) PTSD (post-traumatic stress disorder) Shingles 4th occurrence Surgical History H/O esophagogastroduodenoscopy (09/02/21) H/O thyroidectomy History of mandibular surgery Previous section S/P breast lumpectomy S/P cholecystectomy S/P tonsillectomy and adenoidectomy Family History Father Hypertension Cancer Cardiac abnormality Mother CHF (congestive heart failure) COPD (chronic obstructive pulmonary disease) Diabetes Social History (Updated 08/18/22 @ 09:44 by Na Drake LPN) Smoking and tobacco status: current every day smoker cigarettes Packs smoked per day: 1 Smoking risk assessment/counseling performed?: Yes Alcohol intake: current Alcohol intake frequency: holidays/special occasions only Alcohol type: wine Desire information about alcohol rehabilitation?: No Counseling given: Yes Desire information about substance/drug rehabilitation?: No Counseling given: Yes Adopted: No Caregiver/support person: No Lives independently: Yes Household members: spouse and family Housing: House Marital status: Number of children: 2 Number of grandchildren: 1 Highest education level completed: Some College, No Degree service: No Current occupational status: employed History of recent travel: No Sexually active: Yes Current gender identity: Female Balbina/Zoroastrian: Religious Special balbina needs: No Agree to transfusion: Yes Female Reproductive History: Date of last menstrual period: 09/29/20 Vitals/I&O/Wt Last Vital Signs Temp 98.0 F 08/23/22 13:58 Pulse 101 H 08/23/22 15:43 Resp 24 H 08/23/22 15:43 BP 187/92 08/23/22 14:45 Pulse Ox 93 08/23/22 15:43 O2 Del Method 08/23/22 15:43 O2 Flow Rate 5 08/23/22 15:43 Weight last 48 hrs Weight 127.459 kg Physical Exam Narrative: General: In acute distress because of tachypnea and difficulty in breathing AO x3, NC oxygen supplementation, sick appearing HEENT: PERRLA, pupils bilaterally equal and reactive Chest:Bronchial breath sounds b/l ,decreased air entry, equal good air entry bilaterally, no more fine basal crackles CVS: S1-S2 regular, no murmurs, no tachycardia, no gallops, no rubs Abdomen: Soft, nontender, no organomegaly, bowel sounds present, morbidly obese Neuro: No focal deficits, no facial deformity, AO x3, power 5/5 in all limbs Data 08/23/22 14:35 08/23/22 14:35 A&P Assessment and plan (1) Hypoxia: Most likely secondary to COPD exacerbation in setting of viral prodrome, KI. Cannot rule out vape induced lung injury. Check CTA to rule out pulmonary embolism and for better visualization of consolidation. For now cannot rule out superimposed bacterial pneumonia. Check MRSA swab, blood culture, sputum culture. For now start patient on oral Levaquin. (2) Acute exacerbation of chronic obstructive airways disease: DuoNebs every 6 hour, desonide twice daily. Started on Solu-Medrol 40 mg IV every 6 hourly. Oxygen supplementation keeping saturation over 90%. (3) KI (obstructive sleep apnea): Continue home CPAP. (4) Rhinovirus infection: Incentive spirometry, flutter valve. Supportive treatment. (5) Diabetes mellitus: Check A1c. Insulin sliding scale. Hold off on home oral hypoglycemics. (6) Hypothyroid: (7) Depression: Plan Hypertension: Goal blood pressure less than 140/90 mmHg. Continue with home dose of lisinopril. Will uptitrate as per blood pressure goals. Continue other chronic medications including gabapentin, BuSpar, lamotrigine, levothyroxine Full code. Carb consistent diet. Lovenox for DVT prophylaxis Protonix OPD prophylaxis Attestations Medical Necessity Statement*: Admission for more than 2 midnights for management of hypoxia secondary to COPD exacerbation in setting of rhinovirus infection, obstructive sleep apnea Time Spent in Patient Care: Greater than 35 minutes Coding Level of Care Code Acute Business Test Analyst for [facility]wkanchan Diagnoses Hypoxia R09.02 Acute exacerbation of chronic obstructive airways disease J44.1 KI (obstructive sleep apnea) G47.33 Rhinovirus infection B34.8 Diabetes mellitus E11.9 Hypothyroid E03.9 Depression F32.9
[2022-08-23] MEDS: iohexol 350 mg/mL 500 mL Btl (per mL) IV (18:05)
[2022-08-23] MEDS: cefTRIAXone 1,000 MG in sodium chloride 0.9% (plus) 50 ML 100 MG IV (18:21)
[2022-08-23 18:24] LABS: Procalcitonin 0.06 ng/mL (0-0.5); Vitamin B12 451 pg/mL (232-1245)
[2022-08-23 18:27] LABS: Folate Level 5.9 ng/mL (4.8-37.3)
[2022-08-23 18:37] LABS: C Reactive Protein 53.4 mg/L (0.0-4.9); Iron 14 ug/dL (37-145); Percent Saturation 4.5 % (20-50); Total Iron Binding Capacity 307 mcg/dl; Unsaturated Iron Binding 293 ug/dL (112-347)
[2022-08-23] MEDS: azithromycin 500 MG in sodium chloride 0.9% 250 ML 250 MG IV (19:35)
[2022-08-23 21:04] LABS: Glucose Point of Care 171 mg/dL (70-110)
[2022-08-23] MEDS: budesonide 0.5 mg/2 mL Neb INHALATION (21:08)
--- NOTE | 2022-08-23 22:20 | PC.NURSE ---
THIS NURSE CONTACTED PHARMACY ABOUT A DRUG TO DRUG INTERACTION FLAGGED ON UPCOMING MEDICATIONS DUE, LISA AND MANISH. PHARMACY SAID IT CAN CAUSE A PROLONGED QT INTERVAL. CONTACTED DR. ROSAS VIA PHONE AND LET HIM KNOW OF THE INTERACTION AND WHAT PHARMACY SAID, DR ROSAS GAVE INSTRUCTION TO GO AHEAD AND GIVE THE MEDICATION TOGETHER.
[2022-08-23] MEDS: lamoTRIgine 100 mg Tablet 200 MG PO (22:26)
[2022-08-23] MEDS: levoFLOXacin 500 mg Tablet PO (22:26)
[2022-08-23] MEDS: ferrous gluconate 324 mg Tablet PO (22:27)
[2022-08-23] MEDS: BuSPIRONE 10 mg Tablet 20 MG PO (22:27)
[2022-08-23] MEDS: docusate sodium 100 mg Capsule 200 MG PO (22:28)
[2022-08-23] MEDS: lisinopril 20 mg Tablet PO (22:29)
[2022-08-23] MEDS: pantoprazole DR 40 mg Tablet PO (22:29)
[2022-08-23] MEDS: ziprasidone hcl 60 mg Capsule PO (22:41)
[2022-08-24] VITALS (18 sets, daily range): BP systolic 137–172; BP diastolic 83–100; PULSE 83–98; RESP 17–28; TEMP 36.6–37.1; O2SAT 91–94
[2022-08-24] MEDS: ipratropium-albuterol 3 mL Neb INHALATION ×5 (02:44→20:15)
[2022-08-24 04:18] LABS: Basophils % 0.1 %; Hematocrit 36.4 % (37.0-47.0); Hemoglobin 11.7 g/dL (11.5-15.3); Lymphocytes # 0.9 10^3/uL (0.8-4.8); Lymphocytes % 3.7 %; Mean Corpuscular HGB Conc 32.1 g/dL (30.0-36.0); Mean Corpuscular Volume 83.9 fl (81-99); Mean Platelet Volume 10.4 fL (7.4-10.4); Monocytes # 0.4 10^3/uL (0.2-0.9); Monocytes % 1.7 %; Neutrophils % 93.4 %; Nucleated Red Blood Cells % 0 %; Platelet Count 352 10^3/cmm (130-400); Red Blood Count 4.34 10^6/uL (4.1-5.3); Red Cell Distribution Width 15.2 % (12.1-15.1); White Blood Count 22.9 10^3/uL (4.0-10.0)
[2022-08-24 04:28] LABS: Alanine Aminotransferase 17 U/L (0-33); Alkaline Phosphatase 74 U/L (35-105); Anion Gap 15.3 (5-19); Aspartate Amino Transferase 15 U/L (0-32); Blood Urea Nitrogen 6 mg/dL (6-20); Calcium 8.8 mg/dL (8.5-10.5); Carbon Dioxide 23 mmol/L (22-29); Chloride 102 mmol/L (98-107); Globulin 3.2 g/dL (1.3-4.6); Glomerular Filtration Rate 176.8 mL/min (90-130); Glucose 155 mg/dL (65-115); Osmolality Calculated 283 mOsm/kg (285-295); Potassium 4.3 mmol/L (3.5-5.1); Sodium 136 mmol/L (136-145); Total Bilirubin 0.2 mg/dL (0.15-1.2); Total Protein 7.2 g/dL (6.6-8.7)
[2022-08-24 04:33] LABS: Cholesterol 119 mg/dL (0-200); HDL Cholesterol 54 mg/dL (60-100); LDL Cholesterol Calculated 48 mg/dL (50-129); Triglycerides 87 mg/dL (0-150); VLDL Cholestrol Calculation 17 mg/dL (0-30)
[2022-08-24 04:35] LABS: Estmated Average Glucose 108; Hemoglobin A1C 5.4 % (4.0-6.0)
[2022-08-24] MEDS: levoFLOXacin 500 mg Tablet PO (05:21)
[2022-08-24 06:21] LABS: Glucose Point of Care 162 mg/dL (70-110)
[2022-08-24] MEDS: budesonide 0.5 mg/2 mL Neb INHALATION ×2 (08:09→20:15)
[2022-08-24] MEDS: docusate sodium 100 mg Capsule 200 MG PO ×2 (08:26→18:06)
[2022-08-24] MEDS: pantoprazole DR 40 mg Tablet PO ×2 (08:26→18:07)
[2022-08-24] MEDS: ferrous gluconate 324 mg Tablet PO ×2 (08:26→18:06)
[2022-08-24] MEDS: gabapentin 300 mg Capsule 600 MG PO (08:26)
[2022-08-24] MEDS: BuSPIRONE 10 mg Tablet 20 MG PO ×3 (08:26→21:57)
[2022-08-24] MEDS: atorvastatin 40 mg Tablet 20 MG PO (08:26)
[2022-08-24] MEDS: levothyroxine 75 mcg Tablet PO (08:35)
[2022-08-24] MEDS: ziprasidone hcl 60 mg Capsule PO (08:35)
[2022-08-24] MEDS: levothyroxine 200 mcg Tablet PO (08:51)
--- NOTE | 2022-08-24 10:28 | PC.NURSE ---
Notified Dr. Duran of patients blood pressure. 170/100 this am, repeat was 171/97. Reported blood sugar of 162 by accucheck. Spoke with patient and pharmacy about Geodon dose. Dr. Hill ordered per pharmacy so order was changed by pharmacy.
--- NOTE | 2022-08-24 11:02 | PC.CHAP ---
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 [] Patient/Family/Request visit [] Outpatient visit [] Follow-up visit [] Physician referral [] Code/Alert [x] Routine visit [] Staff referral [] Actively dying [x] Patient sleeping [] Family support [] [] Out of room [] Palliative care [] [] Receiving care in room [] Pre-surgical visit [] Trauma [] Long length of stay [] ICU visit [] Other: Relational/Emotional Strength [] Patient feels connected with others/family/visitors/staff [] Distress [] Loneliness/isolation [] Abandonment Spirituality of Patient [] Person of Balbina [] Attends Pentecostalism of their [place] [] Believes in Prayer [] Reads Bible or Spiritism materials [] There are Spiritual issues to be addressed Inspector [place] Interventions [] Prayer [] Active listening [] Non-anxious presence [] Spiritual/emotional support [] Crisis/trauma care [] Spiritual counseling [] Bereavement support [] Provided bereavement packet [] Provided Bible/devotional materials [] Provided toy/stuffed animal, coloring book to patient or family member [] Provided Communion [] Anointing/[place] [] Salvation [] Completed spiritual assessment [] Other: Impact on Illness or Injury [] Angry [] Fearful [] Anxious [] Often cries [] Exhaustion [] Unable to work [] Unable to attend sikh [] Unable to walk/stand [] Unable to read [] Unable to drive [] Unable to eat/drink [] Unable to sleep [] Unable to be with family [] Patient intubated [] Other: Summary Time spent with patient
--- NOTE | 2022-08-24 14:21 | P.PN_ITS ---
Subjective Subjective: This morning on examination patient is still on 5 L oxygen supplementation with at bedside. Patient is asking if she can go home. We discussed that patient is on high oxygen requirement and looks fairly tachypneic even on at rest on talking. We discussed that patient would most likely remain in hospital for next 3 to 4 days because of acute hypoxia and significant consolidation on CT scan. Patient verbalizes understanding and is agreeable to stay. Blood pressure is elevated. Vitals/I&O/Wt Last Vital Signs Temp 98 F 08/24/22 08:00 Pulse 83 08/24/22 13:31 Resp 18 08/24/22 13:26 BP 172/96 08/24/22 12:00 Pulse Ox 93 08/24/22 13:26 O2 Del Method 08/24/22 13:26 O2 Flow Rate 4 08/24/22 13:26 08/23/22 08/24/22 08/24/22 22:59 06:59 14:59 Intake Total 500 / 500 Balance 500 / 500 Weight last 48 hrs Weight 128.231 kg Weight 127.459 kg Physical Exam Narrative: General: No acute distress, still tachypneic, not using accessory muscles, on nasal cannula, sick appearing HEENT: PERRLA, pupils bilaterally equal and reactive Chest:Bronchial breath sounds b/l ,decreased air entry, equal good air entry bilaterally, no more fine basal crackles CVS: S1-S2 regular, no murmurs, no tachycardia, no gallops, no rubs Abdomen: Soft, nontender, no organomegaly, bowel sounds present, morbidly obese Neuro: No focal deficits, no facial deformity, AO x3, power 5/5 in all limbs Data 08/24/22 03:46 08/24/22 03:46 Micro: Microbiology 08/24/22 02:45 MRSA Culture - Final Nose 08/23/22 18:30 Blood Culture - Preliminary Blood SPECIMEN COLLECTED 08/23/22 18:38 Blood Culture - Preliminary Blood SPECIMEN COLLECTED A&P Assessment and plan (1) Respiratory failure with hypoxia: Most likely secondary to COPD exacerbation in setting of viral prodrome, KI. Cannot rule out vape induced lung injury. PE ruled out. CT consistent with significant bilateral consolidations. MRSA swab negative, blood culture, sputum culture pending. Urine Legionella, bacterial antigen pending. Continue with Levaquin. Add IV ceftriaxone 1 g daily. Cannot rule out mild diastolic heart failure. Check echocardiogram. IV Lasix 40 mg one-time. Strict input output charting, daily weights. (2) Acute exacerbation of chronic obstructive airways disease: DuoNebs every 6 hour, desonide twice daily. Patient significantly out of breath even at rest on talking. Increase Solu- Medrol to 60 mg every 6 hour. DuoNebs every 4 hour as needed Aggressive pulmonary toilet with I-S and Acapella. Oxygen supplementation keeping saturation over 90%. (3) Community acquired pneumonia: (4) KI (obstructive sleep apnea): Continue home CPAP. (5) Rhinovirus infection: Incentive spirometry, flutter valve. Supportive treatment. (6) Diabetes mellitus: A1c 5.4. Hold off on any sliding scale. Continue with carb consistent diet. (7) Hypothyroid: (8) Depression: Plan Hypertension: Goal blood pressure less than 140/90 mmHg. Blood pressure elevated. Continue with home dose of lisinopril. Add Coreg 6.25 mg twice daily. Check echocardiogram. Continue other chronic medications including gabapentin, BuSpar, lamotrigine, levothyroxine Full code. Carb consistent diet. Lovenox for DVT prophylaxis Protonix OPD prophylaxis Discharge planning: Plan to discharge home with caregiver once patient is medically stable Continue with care at [facility] This documentation was created by [employer] glued wood tester software. Every effort was made to ensure accuracy of glued wood tester. Any obvious errors or omissions should be clarified with the author of the document. Attestations Medical Necessity Statement*: Requires further hospitalization for management of hypoxic respiratory failure in setting of COPD exacerbation in setting of enteroviral infection, superimposed bacterial pneumonia Time Spent in Patient Care: Greater than 35 minutes Coding Level of Care Code Acute Fell Cutter for [facility] Fwd Diagnoses Respiratory failure with hypoxia J96.91 Acute exacerbation of chronic obstructive airways disease J44.1 Community acquired pneumonia J18.9 KI (obstructive sleep apnea) G47.33 Rhinovirus infection B34.8 Diabetes mellitus E11.9 Hypothyroid E03.9 Depression F32.9
[2022-08-24] MEDS: enoxaparin 40 mg/0.4 mL Syringe SUBCUT (15:05)
[2022-08-24] MEDS: FUROsemide 10 mg/mL SDV 4mL 40 MG IVP (15:06)
[2022-08-24] MEDS: lisinopril 20 mg Tablet PO (15:06)
[2022-08-24 17:31] LABS: Glucose Point of Care 149 mg/dL (70-110)
[2022-08-24] MEDS: cefTRIAXone 1,000 MG in sodium chloride 0.9% (plus) 50 ML 100 MG IV (18:06)
[2022-08-24] MEDS: guaiFENesin 600 mg Tablet 1200 MG PO (18:06)
[2022-08-24] MEDS: hyDROXYzine 25 mg Capsule 50 MG PO ×2 (18:06→21:57)
[2022-08-24] MEDS: insulin lispro 100 unit/1 mL SUBCUT ×2 (18:07→21:59)
[2022-08-24] MEDS: carvedilol 6.25 mg Tablet PO (18:07)
[2022-08-24 21:03] LABS: Glucose Point of Care 195 mg/dL (70-110)
[2022-08-24] MEDS: lamoTRIgine 100 mg Tablet 200 MG PO (21:58)
[2022-08-24] MEDS: ziprasidone hcl 40 mg Capsule 80 MG PO (21:58)
[2022-08-25] VITALS (13 sets, daily range): BP systolic 122–158; BP diastolic 77–98; PULSE 76–733; RESP 16–23; TEMP 36.4–36.7; O2SAT 90–98
[2022-08-25] MEDS: ipratropium-albuterol 3 mL Neb INHALATION ×4 (03:27→20:38)
[2022-08-25 04:33] LABS: Basophils # 0.1 10^3/uL (0.0-0.1); Basophils % 0.2 %; Hematocrit 37.3 % (37.0-47.0); Hemoglobin 12.1 g/dL (11.5-15.3); Lymphocytes # 1.8 10^3/uL (0.8-4.8); Lymphocytes % 6.2 %; Mean Corpuscular HGB Conc 32.4 g/dL (30.0-36.0); Mean Corpuscular Hemoglobin 27.3 pg (28.0-34.0); Monocytes # 1.4 10^3/uL (0.2-0.9); Monocytes % 4.9 %; Neutrophils # 24.84 10^3/uL (1.8-7.7); Neutrophils % 87.4 %; Nucleated Red Blood Cells % 0 %; Platelet Count 366 10^3/cmm (130-400); Red Blood Count 4.44 10^6/uL (4.1-5.3); Red Cell Distribution Width 15.4 % (12.1-15.1); White Blood Count 28.4 10^3/uL (4.0-10.0)
[2022-08-25 04:59] LABS: Alanine Aminotransferase 18 U/L (0-33); Albumin Level 3.9 g/dL (3.5-5.2); Alkaline Phosphatase 79 U/L (35-105); Anion Gap 14.3 (5-19); Aspartate Amino Transferase 17 U/L (0-32); Blood Urea Nitrogen 13 mg/dL (6-20); Calcium 8.9 mg/dL (8.5-10.5); Carbon Dioxide 25 mmol/L (22-29); Chloride 102 mmol/L (98-107); Globulin 3.5 g/dL (1.3-4.6); Glomerular Filtration Rate 176.8 mL/min (90-130); Glucose 136 mg/dL (65-115); Magnesium 2.3 mg/dL (1.7-2.3); Osmolality Calculated 286 mOsm/kg (285-295); Phosphorus 3.2 mg/dL (2.5-4.5); Potassium 4.3 mmol/L (3.5-5.1); Sodium 137 mmol/L (136-145); Total Bilirubin 0.2 mg/dL (0.15-1.2); Total Protein 7.4 g/dL (6.6-8.7)
[2022-08-25] MEDS: levoFLOXacin 500 mg Tablet PO (05:48)
[2022-08-25 06:26] LABS: Glucose Point of Care 157 mg/dL (70-110)
[2022-08-25] MEDS: budesonide 0.5 mg/2 mL Neb INHALATION ×2 (08:09→20:38)
[2022-08-25] MEDS: gabapentin 300 mg Capsule 600 MG PO (08:58)
[2022-08-25] MEDS: BuSPIRONE 10 mg Tablet 20 MG PO ×3 (08:58→20:54)
[2022-08-25] MEDS: insulin lispro 100 unit/1 mL SUBCUT ×4 (08:58→20:57)
[2022-08-25] MEDS: levothyroxine 200 mcg Tablet PO (08:58)
[2022-08-25] MEDS: levothyroxine 75 mcg Tablet PO (08:58)
[2022-08-25] MEDS: atorvastatin 40 mg Tablet 20 MG PO (09:00)
[2022-08-25] MEDS: pantoprazole DR 40 mg Tablet PO ×2 (09:00→17:49)
[2022-08-25] MEDS: ferrous gluconate 324 mg Tablet PO ×2 (09:00→17:50)
[2022-08-25] MEDS: hyDROXYzine 25 mg Capsule 50 MG PO ×4 (09:00→20:55)
[2022-08-25] MEDS: carvedilol 6.25 mg Tablet PO ×2 (09:00→17:49)
[2022-08-25] MEDS: guaiFENesin 600 mg Tablet 1200 MG PO ×2 (09:00→17:48)
[2022-08-25] MEDS: docusate sodium 100 mg Capsule 200 MG PO ×2 (09:00→17:48)
[2022-08-25] MEDS: lisinopril 20 mg Tablet PO ×2 (09:00→11:54)
[2022-08-25] MEDS: ziprasidone hcl 40 mg Capsule 80 MG PO ×2 (10:40→20:56)
[2022-08-25] MEDS: acetaminophen 325 mg Tablet 650 MG PO ×2 (10:49→21:09)
[2022-08-25 11:45] LABS: Glucose Point of Care 197 mg/dL (70-110)
[2022-08-25] MEDS: enoxaparin 40 mg/0.4 mL Syringe SUBCUT (14:47)
--- NOTE | 2022-08-25 16:02 | P.PN_ITS ---
Subjective Subjective: No acute vents overnight. Seen with family at bedside. Patient stating he is feeling a lot better. Saturating well on 3 L today. Denies any nausea, vomiting, headache. Requesting go home as soon as possible. We discussed that she has extensive bilateral pneumonia along with hypoxia. We discussed that it could be few days prior to discharge as clinical improvement is there but we need persistent clinical improvement as IV steroids were changed to oral. She verbalized understanding's and agreeable to stay. Vitals/I&O/Wt Last Vital Signs Temp 97.7 F 08/25/22 08:00 Pulse 91 08/25/22 13:28 Resp 16 08/25/22 13:25 BP 155/94 08/25/22 12:00 Pulse Ox 94 08/25/22 13:25 O2 Del Method 08/25/22 13:25 O2 Flow Rate 3 08/25/22 13:25 08/25/22 08/25/22 08/25/22 06:59 14:59 22:59 Intake Total 240 / 970 240 / 240 Balance 240 / 970 240 / 240 Weight last 48 hrs Weight 130.833 kg Weight 128.231 kg Physical Exam Narrative: General: No acute distress, still tachypneic, not using accessory muscles, on nasal cannula, sick appearing HEENT: PERRLA, pupils bilaterally equal and reactive Chest:Bronchial breath sounds b/l ,decreased air entry, equal good air entry bilaterally, no more fine basal crackles CVS: S1-S2 regular, no murmurs, no tachycardia, no gallops, no rubs Abdomen: Soft, nontender, no organomegaly, bowel sounds present, morbidly obese Neuro: No focal deficits, no facial deformity, AO x3, power 5/5 in all limbs Data 08/25/22 03:54 08/25/22 03:54 Micro: Microbiology 08/24/22 13:30 Legionella Urinary Antigen - Final Unknown Source 08/23/22 18:30 Blood Culture - Preliminary Blood NEGATIVE TO DATE 08/23/22 18:38 Blood Culture - Preliminary Blood NEGATIVE TO DATE 08/24/22 13:30 Bacterial Antigens - Final Urine Kidney 08/24/22 02:45 MRSA Culture - Final Nose A&P Assessment and plan (1) Respiratory failure with hypoxia: Most likely secondary to COPD exacerbation in setting of viral prodrome,, superimposed bacterial pneumonia, obstructive sleep apnea along with high chance of vape induced lung injury. PE ruled out. CT consistent with significant bilateral consolidations. MRSA swab negative, urine Legionella, bacterial antigen negative. Sputum culture pending. For now continue with IV ceftriaxone and Levaquin. Oxygen supplementation keeping saturation more than 90%. Discussed in detail with patient regarding smoking and vaping cessation. She verbalized understanding and states going forward she is not going to use either. Did tell her that if she needed there are medical resources and help available. (2) Acute exacerbation of chronic obstructive airways disease: DuoNebs every 6 hour, budesonide twice daily. Aggressive pulmonary toilet with I-S and Acapella. Wean down Solu-Medrol to 60 mg every 12 hourly. (3) Community acquired pneumonia: Antibiotic as above. Follow-up blood culture and sputum culture. (4) KI (obstructive sleep apnea): Continue home CPAP. (5) Rhinovirus infection: Incentive spirometry, flutter valve. Supportive treatment. (6) Diabetes mellitus: A1c 5.4. Hold off on any sliding scale. Continue with carb consistent diet. (7) Hypothyroid: (8) Depression: Plan Hypertension: Goal blood pressure less than 140/90 mmHg. Blood pressure better but still mildly elevated. Continue with Coreg 6.25 twice daily. Increase home dose of lisinopril to 40 mg daily. Awaiting echocardiogram. Continue other chronic medications including gabapentin, BuSpar, lamotrigine, levothyroxine Full code. Carb consistent diet. Lovenox for DVT prophylaxis Protonix OPD prophylaxis Discharge planning: Plan to discharge home with caregiver once patient is medically stable Continue with care at [facility] This documentation was created by [email or web address] historical interpreter software. Every effort was made to ensure accuracy of historical interpreter. Any obvious errors or omissions should be clarified with the author of the document. Attestations Medical Necessity Statement*: Requires further hospitalization for management of hypoxia secondary to community-acquired pneumonia, COPD exacerbation in setting of rhinovirus infection, uncontrolled hypertension Time Spent in Patient Care: Greater than 35 minutes Coding Level of Care Code Acute Prisoner Classification Interviewer for [facility] Diagnoses Respiratory failure with hypoxia J96.91 Acute exacerbation of chronic obstructive airways disease J44.1 Community acquired pneumonia J18.9 KI (obstructive sleep apnea) G47.33 Rhinovirus infection B34.8 Diabetes mellitus E11.9 Hypothyroid E03.9 Depression F32.9
--- NOTE | 2022-08-25 16:10 | USCV_ITS ---
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 No history of cardiac intervention per patient. BP: 156 / 98 HR: 86 Rhythm: Sinus Technical Quality: Adequate MEASUREMENTS (Male / Female) Normal Values 2D ECHO LV Diastolic Diameter PLAX 4.9 cm 4.2 - 5.9 / 3.9 - 5.3 cm LV Systolic Diameter PLAX 2.9 cm IVS Diastolic Thickness 1.4 cm 0.6 - 1.0 / 0.6 - 0.9 cm IVS Systolic Thickness 1.6 cm LVPW Diastolic Thickness 1.3 cm 0.6 - 1.0 / 0.6 - 0.9 cm LVPW Systolic Thickness 1.3 cm LVOT Diameter 2.1 cm LV Ejection Fraction 2D Teich 71.5 % LV Ejection Fraction MOD 2C 72.6 % LV Ejection Fraction 2C AL 74.9 % LA Diameter 4.7 cm LA Width 4.1 cm LA Height 7.1 cm RA Width 2.9 cm RA Height 4.1 cm Aorta at Sinotubular Diameter 2.9 cm IVC Diameter 1.5 cm M-MODE Aortic Annulus Diameter 2.8 cm LA Ao Ratio MM 1.7 MV E Point Septal Separation 0.3 cm DOPPLER AV Peak Velocity 153.0 cm/s LVOT Peak Velocity 96.0 cm/s AV Area Cont Eq vti 2.2 cm squared AV Area Cont Eq pk 2.1 cm squared MV Area PHT 3.7 cm squared Mitral E to A Ratio 0.8 MV E' Velocity 62.5 cm/s Mitral E to MV E' Ratio 12.3 Mitral E to LV E' Lateral Ratio 11.6 Mitral E to LV E' Septal Ratio 13.3 TV Peak E Velocity 77.0 cm/s PV Peak Velocity 109.0 cm/s RV Acceleration Time 0.1 s RV Ejection Time 0.4 s RV AcT/ET 0.2 FINDINGS Left Ventricle Normal left ventricular size and systolic function, EF 72 %. Mild left ventricular hypertrophy. Grade I/IV diastolic dysfunction (abnormal relaxation filling pattern), normal to mildly elevated filling pressures. Right Ventricle The right ventricle is normal in size and function. Right Atrium The right atrium is normal in size. Left Atrium Appears to have a prominent left atrial appendage Mitral Valve No gross abnormalities noted Aortic Valve No gross abnormalities noted Tricuspid Valve No gross abnormalities noted Pulmonic Valve No gross abnormalities noted Pericardium Normal pericardium without effusion. Aorta Normal ascending aorta dimension. IVC Normal inferior vena cava. CONCLUSIONS Normal left ventricular size and systolic function, EF 72 %. Mild left ventricular hypertrophy. Grade I/IV diastolic dysfunction (abnormal relaxation filling pattern), normal to mildly elevated filling pressures. Normal cardiac chamber sizes There is no pericardial effusion. There are no intracardiac masses. No similar previous studies are available for comparison Dr Prachi Jimenes MD FACC (Electronically Signed) Final Date: 27 August 2022 12:45 S
[2022-08-25 17:23] LABS: Glucose Point of Care 182 mg/dL (70-110)
[2022-08-25] MEDS: cefTRIAXone 1,000 MG in sodium chloride 0.9% (plus) 50 ML 100 MG IV (17:42)
[2022-08-25 20:31] LABS: Glucose Point of Care 205 mg/dL (70-110)
[2022-08-25] MEDS: lamoTRIgine 100 mg Tablet 200 MG PO (20:55)
[2022-08-26] VITALS (11 sets, daily range): BP systolic 155–163; BP diastolic 90–95; PULSE 75–85; RESP 1–21; TEMP 36.6–36.8; O2SAT 87–97
[2022-08-26] MEDS: ipratropium-albuterol 3 mL Neb INHALATION ×3 (03:39→13:27)
[2022-08-26 04:41] LABS: Basophils # 0.1 10^3/uL (0.0-0.1); Basophils % 0.2 %; Hematocrit 38.7 % (37.0-47.0); Hemoglobin 12.3 g/dL (11.5-15.3); Lymphocytes # 3.1 10^3/uL (0.8-4.8); Mean Corpuscular HGB Conc 31.8 g/dL (30.0-36.0); Mean Corpuscular Hemoglobin 26.9 pg (28.0-34.0); Mean Corpuscular Volume 84.5 fl (81-99); Mean Platelet Volume 10.2 fL (7.4-10.4); Monocytes # 1.4 10^3/uL (0.2-0.9); Monocytes % 5.1 %; Neutrophils # 23.06 10^3/uL (1.8-7.7); Neutrophils % 82.3 %; Nucleated Red Blood Cells % 0 %; Platelet Count 387 10^3/cmm (130-400); Red Blood Count 4.58 10^6/uL (4.1-5.3); Red Cell Distribution Width 15.2 % (12.1-15.1)
[2022-08-26 05:01] LABS: Alanine Aminotransferase 21 U/L (0-33); Albumin Level 4.1 g/dL (3.5-5.2); Alkaline Phosphatase 78 U/L (35-105); Anion Gap 14.3 (5-19); Aspartate Amino Transferase 17 U/L (0-32); Blood Urea Nitrogen 18 mg/dL (6-20); Carbon Dioxide 24 mmol/L (22-29); Chloride 103 mmol/L (98-107); Glomerular Filtration Rate 176.8 mL/min (90-130); Glucose 123 mg/dL (65-115); Osmolality Calculated 287 mOsm/kg (285-295); Potassium 4.3 mmol/L (3.5-5.1); Sodium 137 mmol/L (136-145); Total Bilirubin 0.2 mg/dL (0.15-1.2); Total Protein 7.1 g/dL (6.6-8.7)
[2022-08-26] MEDS: levoFLOXacin 500 mg Tablet PO (05:39)
[2022-08-26 06:19] LABS: Glucose Point of Care 112 mg/dL (70-110)
[2022-08-26] MEDS: budesonide 0.5 mg/2 mL Neb INHALATION (08:08)
[2022-08-26] MEDS: pantoprazole DR 40 mg Tablet PO (08:17)
[2022-08-26] MEDS: lisinopril 20 mg Tablet 40 MG PO (08:17)
[2022-08-26] MEDS: gabapentin 300 mg Capsule 600 MG PO (08:17)
[2022-08-26] MEDS: hyDROXYzine 25 mg Capsule 50 MG PO (08:17)
[2022-08-26] MEDS: carvedilol 6.25 mg Tablet PO (08:17)
[2022-08-26] MEDS: ferrous gluconate 324 mg Tablet PO (08:18)
[2022-08-26] MEDS: BuSPIRONE 10 mg Tablet 20 MG PO (08:18)
[2022-08-26] MEDS: guaiFENesin 600 mg Tablet 1200 MG PO (08:18)
[2022-08-26] MEDS: docusate sodium 100 mg Capsule 200 MG PO (08:18)
[2022-08-26] MEDS: atorvastatin 40 mg Tablet 20 MG PO (08:18)
[2022-08-26] MEDS: levothyroxine 200 mcg Tablet PO (08:22)
[2022-08-26] MEDS: ziprasidone hcl 40 mg Capsule 80 MG PO (08:22)
[2022-08-26 11:20] LABS: Glucose Point of Care 170 mg/dL (70-110)
--- NOTE | 2022-08-26 12:13 | P.DS_ITS ---
Discharge Providers Date of Admission: 08/23/22 17:03 Date of Discharge: August 26, 2022 Attending Provider at Admission: Walter Duran MD Attending Provider at Discharge: Walter Duran MD Primary Care Provider: Pierre Jaramillo Diagnoses at Discharge Discharge Diagnosis (1) Respiratory failure with hypoxia: Status: Acute (2) Acute exacerbation of chronic obstructive airways disease: Status: Acute (3) Community acquired pneumonia: Status: Acute (4) KI (obstructive sleep apnea): Status: Acute (5) Rhinovirus infection: Status: Acute (6) Diabetes mellitus: Status: Acute Permanent problem details: Type 2 (7) Hypothyroid: Status: Acute (8) Depression: Status: Acute Reason for Visit Reason for Visit: SOB Hospital Course Hospital Course Lori Padron is a 42 year old female who is a current smoker, vapes daily with past medical history obstructive sleep apnea on CPAP, type 2 diabetes katelyn itus, hyperlipidemia, shingles with postherpetic neuralgia, hypothyroidism, hypertension who presented to the ER today because of worsening shortness of breath over the last 1 week acutely worse since last 24 hours along with worsening of cough and change in the voice.? In the ER patient required up to 5 L of oxygen supplementation with significant desaturation on minimal ambulation hence hospitalist service was called for admission. Patient was under the hospital further evaluation and management of hypoxia secondary to viral prodrome, superimposed bacterial pneumonia along with a consideration of vape induced lung injury. She was started on high-dose IV steroids which were tapered down. Patient was started on broad-spectrum IV antibiotics. Her oxygen requirements continue to trend down and currently saturating well at rest on 2 L. Patient was reluctant to stay in the hospital but was agreeable with the treatment hence she is discharged home on oral antibiotics for 7 more days, steroid taper. During hospitalization she was found to have high blood pressures for which her home dose of antihypertensive has been adjusted. She is to take lisinopril 40 mg daily, Coreg 6.25 mg twice daily and hydrochlorothiazide 25 mg daily. Her A1c was checked which was found to be 5.4. Patient did not require any Lantus and was requiring up to 10 to 12 units of Humalog during hospitalization. She has been discharged in medically stable condition advised to maintain a blood pressure diary by checking blood pressure twice daily, blood sugar diary by checking blood sugars 3 meals 3 times a day and follow-up with a primary care provider within next 1 week for further adjustment of antihypertensive and antidiabetic medications. Home O2 evaluation was done prior to discharge. Physical Exam Narrative: General: No acute distress, still tachypneic, not using accessory muscles, on nasal cannula, sick appearing HEENT: PERRLA, pupils bilaterally equal and reactive Chest:Bronchial breath sounds b/l ,decreased air entry, equal good air entry bilaterally, no more fine basal crackles CVS: S1-S2 regular, no murmurs, no tachycardia, no gallops, no rubs Abdomen: Soft, nontender, no organomegaly, bowel sounds present, morbidly obese Neuro: No focal deficits, no facial deformity, AO x3, power 5/5 in all limbs Discharge Data Studies Completed and Pending Completed Studies During Hospitalization Category Date Time Status CTA chest [CT angio chest PE protcl [id number]] Stat Cat Scan 08/23/22 17:40 Completed XR chest 1V portable [id number] Stat Exams 08/23/22 14:10 Completed Pending at discharge Category Date Time Status Blood Culture Stat Lab 08/23/22 18:30 Results [facility] Profile AM LABS Lab 08/26/22 03:50 Received Sputum Culture and Gram Stain Stat Lab 08/25/22 10:50 Results CV. echo complete* [id number] Routine Ultrasound 08/25/22 16:10 Taken Radiology Impressions Chest X-Ray 08/23/22 14:10 IMPRESSION: Mild cardiomegaly with nonspecific ground-glass opacities both lung sullivan as discussed above. Chest CTA 08/23/22 17:40 IMPRESSION: 1. Technically limited but negative CT angiogram of the chest. No evidence of acute pulmonary embolism to major branches of the pulmonary vascular tree. 2. Interval development of diffuse perihilar ground-glass opacities, nonspecific in distribution and appearance as discussed above. Continued follow-up advised. 3. Mild mediastinal and hilar lymphadenopathy that may be related to the lung pathology and also needs follow-up for clarification. 4. Mild cardiomegaly with decreased lung volumes, stable. Laboratory Results WBC 28.0 10^3/uL (4.0-10.0) H 08/26/22 03:50 RBC 4.58 10^6/uL (4.1-5.3) 08/26/22 03:50 Hgb 12.3 g/dL (11.5-15.3) 08/26/22 03:50 Hct 38.7 % (37.0-47.0) 08/26/22 03:50 MCV 84.5 fl (81-99) 08/26/22 03:50 MCH 26.9 pg (28.0-34.0) L 08/26/22 03:50 MCHC 31.8 g/dL (30.0-36.0) 08/26/22 03:50 RDW 15.2 % (12.1-15.1) H 08/26/22 03:50 Plt Count 387 10^3/cmm (130-400) 08/26/22 03:50 MPV 10.2 fL (7.4-10.4) 08/26/22 03:50 Neut % (Auto) 82.3 % 08/26/22 03:50 Lymph % (Auto) 11.0 % 08/26/22 03:50 [place] % (Auto) 5.1 % 08/26/22 03:50 Eos % (Auto) 0.0 % 08/26/22 03:50 Baso % (Auto) 0.2 % 08/26/22 03:50 Neut # (Auto) 23.06 10^3/uL (1.8-7.7) H 08/26/22 03:50 Lymph # (Auto) 3.1 10^3/uL (0.8-4.8) 08/26/22 03:50 [place] # (Auto) 1.4 10^3/uL (0.2-0.9) H 08/26/22 03:50 Eos # (Auto) 0.0 10^3/uL (0.0-0.8) 08/26/22 03:50 Baso # (Auto) 0.1 10^3/uL (0.0-0.1) 08/26/22 03:50 Nucleated RBC % (auto) 0 % 08/26/22 03:50 Nucleated RBCs # 0.0 /100WBC 08/26/22 03:50 Sodium 137 mmol/L (136-145) 08/26/22 03:50 Potassium 4.3 mmol/L (3.5-5.1) 08/26/22 03:50 Chloride 103 mmol/L (98-107) 08/26/22 03:50 Carbon Dioxide 24 mmol/L (22-29) 08/26/22 03:50 Anion Gap 14.3 (5-19) 08/26/22 03:50 BUN 18 mg/dL (6-20) 08/26/22 03:50 Creatinine 0.4 mg/dL (0.5-0.9) L 08/26/22 03:50 GFR Calculation 176.8 mL/min (90-130) H 08/26/22 03:50 Glucose 123 mg/dL (65-115) H 08/26/22 03:50 POC Glucose 170 mg/dL (70-110) H 08/26/22 11:16 Estimat Average Glucose 108 08/24/22 03:46 Hemoglobin A1c 5.4 % (4.0-6.0) 08/24/22 03:46 Calculated Osmolality 287 mOsm/kg (285-295) 08/26/22 03:50 Calcium 9.0 mg/dL (8.5-10.5) 08/26/22 03:50 Phosphorus 3.2 mg/dL (2.5-4.5) 08/25/22 03:54 Magnesium 2.3 mg/dL (1.7-2.3) 08/25/22 03:54 Iron 14 ug/dL (37-145) L 08/23/22 14:35 TIBC 307 mcg/dl 08/23/22 14:35 % Saturation 4.5 % (20-50) L 08/23/22 14:35 Unsat Iron Binding 293 ug/dL (112-347) 08/23/22 14:35 Total Bilirubin 0.2 mg/dL (0.15-1.2) 08/26/22 03:50 AST 17 U/L (0-32) 08/26/22 03:50 ALT 21 U/L (0-33) 08/26/22 03:50 Alkaline Phosphatase 78 U/L (35-105) 08/26/22 03:50 C-Reactive Protein 53.4 mg/L (0.0-4.9) H 08/23/22 14:35 Total Protein 7.1 g/dL (6.6-8.7) 08/26/22 03:50 Albumin 4.1 g/dL (3.5-5.2) 08/26/22 03:50 Globulin 3.0 g/dL (1.3-4.6) 08/26/22 03:50 Triglycerides 87 mg/dL (0-150) 08/24/22 03:46 Cholesterol 119 mg/dL (0-200) 08/24/22 03:46 LDL Cholesterol, Calc 48 mg/dL (50-129) L 08/24/22 03:46 Total VLDL Cholesterol 17 mg/dL (0-30) 08/24/22 03:46 HDL Cholesterol 54 mg/dL (60-100) L 08/24/22 03:46 Cholesterol/HDL Ratio 2.20 mg/dL (0.0-4.40) 08/24/22 03:46 Vitamin B12 451 pg/mL (232-1245) 08/23/22 14:35 Folate 5.9 ng/mL (4.8-37.3) 08/23/22 14:35 Procalcitonin 0.06 ng/mL (0-0.5) 08/23/22 14:35 TSH 2.50 uIU/mL (0.27-4.20) 08/23/22 14:35 Coronavirus 229E (PCR) Not detected (NOT DETECT) 08/23/22 15:27 Human Metapneumovir PCR Not detected (NOT DETECT) 08/23/22 17:38 Influenza Type A Ag negative (Negative) 08/23/22 15:27 Influenza Type B Ag negative (Negative) 08/23/22 15:27 Entero/Rhino (PCR) Detected (NOT DETECT) A 08/23/22 17:38 SARS-CoV-2 (PCR) Not detected (NOT DETECT) 08/23/22 15:27 Vitals Last Vital Signs Temp 98.2 F 08/26/22 11:41 Pulse 76 08/26/22 11:41 Resp 16 08/26/22 11:41 BP 156/91 08/26/22 11:41 Pulse Ox 90 08/26/22 11:41 O2 Del Method 08/26/22 11:41 O2 Flow Rate 3 08/26/22 10:15 Discharge Plan Discharge Patient Disposition: Home Condition: Stable Prescriptions: New carvedilol 6.25 mg Tablet 6.25 mg PO BID 30 Days Qty: 60 0RF insulin lispro [Humalog KwikPen Insulin] 100 unit/mL insulin pen See Protocol SUBCUT TID Qty: 15 0RF Protocol: Insulin Corrective High-Dose Regimen Condition: Fingerstick Blood Glucose Dose/Route: Insulin Units Condition: 141-180 mg/dl Dose/Route: 4 units/SQ Condition: 181-220 mg/dl Dose/Route: 6 units/SQ Condition: 221-260 mg/dl Dose/Route: 8 units/SQ Condition: 261-300 mg/dl Dose/Route: 10 units/SQ Condition: 301-350 mg/dl Dose/Route: 12 units/SQ Condition: 351-400 mg/dl Dose/Route: 14 units/SQ Condition: greater than 400 mg/dl Dose/Route: 18 units/SQ prednisone 10 mg tablets,dose pack See Rx Instructions .ROUTE .COMPLEX Qty: 21 0RF Rx Instructions: prednisone 5 mg: take 8 tablets (40 mg) on Day 1; 7 tablets (35 mg) on Day 2; then decrease by 1 tablet every day until finished hydrochlorothiazide 25 mg tablet 25 mg PO QAM Qty: 30 0RF ferrous gluconate 324 mg (37.5 mg iron) Tablet 324 mg PO BIDWM Qty: 60 0RF guaifenesin [Mucinex] 600 mg Tablet Extended Release 12hr 1,200 mg PO BID 10 Days Qty: 40 0RF doxycycline hyclate 100 mg capsule 100 mg PO BID 7 Days Qty: 14 0RF levofloxacin 500 mg tablet 500 mg PO Q24H 7 Days Qty: 7 0RF Continued omega-3 fatty acids [Fish Oil Concentrate] 1,000 mg capsule 500 mg PO BEDTIME triamcinolone acetonide 0.1 % cream 1 applic topical BID Qty: 30 0RF buspirone 10 mg tablet 20 mg PO TID docusate sodium [Colace] 100 mg capsule 200 mg PO DAILY metformin 500 mg tablet extended release 24 hr 1,000 mg PO BID Qty: 240 3RF ondansetron 4 mg tablet,disintegrating 4 mg PO Q6H PRN (Reason: nausea and vomiting) Qty: 60 1RF Ozempic 1 mg/dose (4 mg/3 mL) pen injector 1 mg SUBCUT Q7D Qty: 3 5RF Rx Instructions: on tuesday atorvastatin 20 mg tablet 20 mg PO DAILY Qty: 90 3RF gabapentin 600 mg tablet 600 mg PO DAILY Qty: 30 5RF hydroxyzine HCl 25 mg tablet 50 mg PO QID 30 Days Qty: 240 3RF celecoxib 100 mg capsule 100 mg PO BID Qty: 60 0RF albuterol sulfate 2.5 mg /3 mL (0.083 %) solution for nebulization 2.5 mg inhalation Q4H PRN (Reason: Shortness Of Breath) Qty: 90 3RF acetaminophen [Tylenol Extra Strength] 500 mg Tablet 1,000 mg PO Q6H PRN (Reason: Pain) albuterol sulfate [Ventolin HFA] 90 mcg/actuation Hfa Aerosol Inhaler 2 puff INHALATION Q4H PRN (Reason: Shortness Of Breath) melatonin 5 mg Tablet 10 mg PO BEDTIME fluticasone propionate 50 mcg/actuation spray,suspension 1 - 2 spray INTRANASAL DAILY PRN (Reason: alternates with azelastine every other day) lamotrigine 100 mg tablet 200 mg PO BEDTIME diphenhydramine HCl [Benadryl Allergy] 25 mg Tablet 25 - 50 mg PO PRN ibuprofen 800 mg tablet 800 mg PO Q8H PRN (Reason: pain) Qty: 20 0RF azelastine 205.5 mcg (0.15 %) spray,non-aerosol 2 spray INTRANASAL BID PRN (Reason: alternates with flonase every other day) levothyroxine 75 mcg tablet See Rx Instructions .ROUTE .COMPLEX Rx Instructions: In addition to 200 mcg at bedtime on Tuesday and Tuesdays pantoprazole [Protonix] 40 mg tablet,delayed release (DR/EC) 40 mg PO BID levothyroxine 200 mcg tablet 200 mcg PO DAILY Rx Instructions: Take 200 mcg every day and add 75mcg on Tuesday and Tuesday epinephrine [EpiPen 2-Edward] 0.3 mg/0.3 mL auto-injector 0.3 mg IM Q15M PRN (Reason: anaphylaxis) Qty: 2 0RF Rx Instructions: for 2 doses ziprasidone HCl 80 mg Capsule 80 mg PO BID Changed lisinopril 20 mg Tablet 40 mg PO BEDTIME Qty: 60 0RF Discontinued Lantus Solostar U-100 Insulin 100 unit/mL (3 mL) insulin pen 46 unit SUBCUT QAM Discharge Orders: Discharge Order (Routine); Ordered 08/26/22 Ordered By: Walter Duran Other Ambulatory Orders: DME: Oxygen (Order) Location: None Selected Ordered By: Walter Duran Referrals: Pierre Jaramillo S[facility] [Primary Care Provider] - 7-10 days Discharge Diet: Cardiac and Diabetic Discharge Activity: Resume usual activity and Increase activity as tolerated Patient Instructions: Opioid Safety Activity Restrictions/Additional Instructions: You will be on 2 different antibiotics going forward. Doxycycline and Levaquin to be taken for next 7 days. Doxycycline is twice daily and Levaquin is once daily. Dose of lisinopril has been increased to 40 mg daily. Coreg 6.25 mg twice daily and hydrochlorothiazide 25 mg daily has been added. Please check your blood pressure twice daily and maintain a blood pressure diary and follow-up with your primary care provider within next 1 week for further adjustment of antihypertensives as needed. Do not take Lantus anymore for now. Your blood sugars were well controlled on Humalog. Continue taking Humalog with each meal as per sliding scale. Sliding scale has been provided to you. Please maintain a blood sugar diary by checking blood sugars 3 meals for next 10 days and follow-up with the primary care provider for further adjustment of antidiabetic medications as needed. Take steroid taper as directed. Please check your pulse oximetry at home and wean down oxygen keeping saturation over 90% both at rest and on exertion. Please try avoiding to smoke and vape going forward to prevent from further lung injury. Discharge Attestations Time Spent in Discharge Care*: greater than 30 min Specific Discharge Activities: educating patient, educating and/or supporting family/caregiver, discussing with pcp/other providers, discussing with case man agers/social workers/dc planners, documenting/other paperwork and evaluating patient/reviewing data Time Spent in Smoking Cessation: more than 10 minutes Status at Discharge: Cognitive status at discharge: cognitively intact , Behavioral status at discharge: cooperative , Functional status at discharge: independent ambulation , Overall status at discharge: patient is back to baseline Quality Metrics Clinical Quality Measures [ No reported AMI, CVA or VTE this stay] Coding Level of Care Code Acute Chg FW DC note Diagnoses Respiratory failure with hypoxia J96.91 Acute exacerbation of chronic obstructive airways disease J44.1 Community acquired pneumonia J18.9 KI (obstructive sleep apnea) G47.33 Rhinovirus infection B34.8 Diabetes mellitus E11.9 Hypothyroid E03.9 Depression F32.9
--- NOTE | 2022-08-26 13:52 | PC.NURSE ---
Oxygen delivered, meds sent to pharmacy. IV removed. Education provided. VS stable upon departure. Pt left facility to go home via wheelchair with .
[2022-08-27 11:20] LABS: Anti-Double Strand DNA AB 17 IU/mL; Jo-1 Antibody <1.0 NEG AI (<1.0 NEG); SM/RNP Antibodies <1.0 NEG AI (<1.0 NEG); SS-B/LA IGG <1.0 NEG AI (<1.0 NEG); Scleroderma Ab(Scl-70) Ab <1.0 NEG AI (<1.0 NEG); Ss-A/Ro Igg <1.0 NEG AI (<1.0 NEG)
== END 2022-08-26 13:53 | disposition home or self-care (01) | DRG 190 ==
LOC: ER 17:04 → MEDSURG 20:31
PROVIDERS: Admitting Provider Student in an Organized Health Care Education/Training Program; Emergency Provider Emergency Medicine; PCP Clinical Nurse Specialist Adult Health; Visit Provider Student in an Organized Health Care Education/Training Program
DX: J44.0 Chronic obstructive pulmonary disease with (acute) lower respiratory infection (principal); I50.31 Acute diastolic (congestive) heart failure; J15.9 Unspecified bacterial pneumonia; J12.9 Viral pneumonia, unspecified; B02.29 Other postherpetic nervous system involvement; Z68.42 Body mass index [BMI] 45.0-49.9, adult; J45.20 Mild intermittent asthma, uncomplicated; J44.1 Chronic obstructive pulmonary disease with (acute) exacerbation; G47.33 Obstructive sleep apnea (adult) (pediatric); B97.89 Other viral agents as the cause of diseases classified elsewhere; E11.9 Type 2 diabetes mellitus without complications; E89.0 Postprocedural hypothyroidism; F31.9 Bipolar disorder, unspecified; U07.0 Vaping-related disorder; J68.9 Unspecified respiratory condition due to chemicals, gases, fumes and vapors; Z99.89 Dependence on other enabling machines and devices; E78.5 Hyperlipidemia, unspecified; I11.0 Hypertensive heart disease with heart failure; Z79.84 Long term (current) use of oral hypoglycemic drugs; Z79.51 Long term (current) use of inhaled steroids; F43.10 Post-traumatic stress disorder, unspecified; E66.01 Morbid (severe) obesity due to excess calories; K21.9 Gastro-esophageal reflux disease without esophagitis
CPT/HCPCS: 36415; 36416; 71045; 71275; 80053; 80061; 82607; 82746; 82962; 83036; 83540; 83550; 83735; 84100; 84145; 84443; 85025; 86140; 86225; 86235; 86403; 87040; 87070; 87205; 87449; 87635; 87641; 87801; 87804; 93306; 94640; 94660; 94664; 94760; 96365; 96367; 96372; 96375; 99285; J0456; J0696; J1650; J1815; J1940; J2920; J2930; J3475; J7050; J7613; J7626; Q9967

== ENCOUNTER → 2022-09-01 10:03 | Outpatient (BNVA) | payer OTHER, SELFPAY | PROVIDERS: PCP Clinical Nurse Specialist Adult Health; Visit Provider Internal Medicine Rheumatology | DX: R76.8 Other specified abnormal immunological findings in serum (principal); Z79.899 Other long term (current) drug therapy | CPT/HCPCS: 36415; 80053; 80061; 82044; 83036; 84439; 84443; 86225; 86235 ==

== ENCOUNTER → 2022-09-09 08:50 | Outpatient (BNVA) | payer OTHER, SELFPAY | PROVIDERS: PCP Clinical Nurse Specialist Adult Health; Visit Provider Internal Medicine Medical Oncology | DX: D72.829 Elevated white blood cell count, unspecified (principal); J44.9 Chronic obstructive pulmonary disease, unspecified | CPT/HCPCS: 36415; 80053; 82103; 82607; 83540; 83550; 83615; 85025; 85651; 86140; 88374 ==

== ENCOUNTER → 2022-09-13 13:30 | Outpatient (BNVA) | payer OTHER, SELFPAY | PROVIDERS: PCP Clinical Nurse Specialist Adult Health; Visit Provider Anesthesiology Pain Medicine | DX: E11.9 Type 2 diabetes mellitus without complications (principal) | CPT/HCPCS: 36416; 77002; 82962 ==

== ENCOUNTER 2022-09-21 07:46 | Outpatient (CLI) | payer OTHER, SELFPAY ==
[2022-09-21 08:34] LABS: NT Pro B Type Natriuretic Pept 5 pg/mL (0-125)
[2022-09-23 18:49] LABS: Alternaria Alternata (M6) Ige <0.10 kU/L; Alternaria Class 0; Bermuda Class 0; Bermuda Grass (G2) Ige <0.10 kU/L; Cat Dander (E1) Ige 0.11 kU/L; Cat Dander Class 0/1; Common Ragweed (Short) (W1) Ig <0.10 kU/L; D. Farinae Class 0; Dermatophagoides Class 0; Dermatophagoides Farinae (D2) <0.10 kU/L; Dermatophagoides Pteronyssinus <0.10 kU/L; Dog Dander (E5) Ige <0.10 kU/L; Dog Dander Class 0; Elm (T8) Ige <0.10 kU/L; Elm Class 0; English Plantain (W9) Ige <0.10 kU/L; English Plantain Class 0; House Dust (Greer) (H1) Ige <0.10 kU/L; House Dust (Hollister- Stier) <0.10 kU/L; House Dust Class 0; Immunoglobulin E 89 kU/L (<OR=114); Johnson Grass (G10) Ige <0.10 kU/L; Johnson Grass Cl 0; June Grass Class 0; June Grass(Kentucky Blue) (G8) <0.10 kU/L; Lamb'S Quarters (Goose Foot) <0.10 kU/L; Lamb'S Quarters Class 0; Maple (Box Elder) (T1) Ige <0.10 kU/L; Maple Class 0; Meadow Fescue (G4) Ige <0.10 kU/L; Meadow Fescue Class 0; Mucor Racemosus Class 0; Oak (T7) Ige <0.10 kU/L; Oak Class 0; Orchard Grass (Cocksfoot) (G3) <0.10 kU/L; Penicillium Class 0; Penicillium Notatum (M1) Ige <0.10 kU/L; Perennial Rye Grass (G5) Ige <0.10 kU/L; Perennial Rye Grass Class 0; Ragweeed Class 0; Rough Marsh Elder (W16) Ige <0.10 kU/L; Rough Marsh Elder Class 0; Sweet Vernal Class 0; Sweet Vernal Grass (G1) Ige <0.10 kU/L; Timothy Grass (G6) Ige <0.10 kU/L; Timothy Grass Class 0
[2022-09-23 20:30] LABS: Aspergillus Fumigatus, Igg Ab, 58.7 mg/L (<=102)
== END 2022-09-21 07:47 | disposition home or self-care (01) ==
LOC: LAB 07:46
PROVIDERS: PCP Clinical Nurse Specialist Adult Health; Visit Provider Internal Medicine Pulmonary Disease
DX: R06.02 Shortness of breath (principal); J44.9 Chronic obstructive pulmonary disease, unspecified; J45.20 Mild intermittent asthma, uncomplicated
CPT/HCPCS: 36415; 82785; 83880; 86003

== ENCOUNTER 2022-10-05 07:49 | Outpatient (CLI) | payer OTHER, SELFPAY | END 2022-10-05 07:50 | disposition home or self-care (01) | LOC: RT 07:51 | PROVIDERS: PCP Clinical Nurse Specialist Adult Health; Visit Provider Internal Medicine Pulmonary Disease | DX: J44.9 Chronic obstructive pulmonary disease, unspecified (principal); J96.91 Respiratory failure, unspecified with hypoxia; J45.20 Mild intermittent asthma, uncomplicated | CPT/HCPCS: 94010; 94618; 94729 ==

== ENCOUNTER → 2022-11-15 09:16 | Outpatient (BNVA) | payer OTHER, SELFPAY | PROVIDERS: PCP Clinical Nurse Specialist Adult Health; Visit Provider Internal Medicine Rheumatology | DX: M32.9 Systemic lupus erythematosus, unspecified (principal); Z79.899 Other long term (current) drug therapy; J84.9 Interstitial pulmonary disease, unspecified; R76.8 Other specified abnormal immunological findings in serum; L71.9 Rosacea, unspecified | CPT/HCPCS: 36415; 80076; 81001; 82306; 82565; 82570; 84156; 85025; 86140; 86160 ==

== ENCOUNTER 2022-11-23 13:16 | Outpatient (CLI) | payer OTHER, SELFPAY ==
--- NOTE | 2022-11-23 14:00 | CT_ITS ---
WS: [id number] CT CHEST CT-HIGH RESOLUTION, NONCONTRAST. HISTORY: Interstitial lung disease. Systemic lupus erythematosus. Technique: High-resolution chest CT is performed in inspiration, expiration, supine and prone positio ariel. All CT scans at [facility] use at least one of these dose optimization techniques: automated exposure control; mA and/or kV adjustment per patient size (includes targeted exams where dose is mat ched to clinical indication); or iterative reconstruction. DLP: 2717.00 mGy.cm COMPARISON: Chest CTA 08/23/2022 Findings: Significant improvement in aeration of both lungs since the prior study. The previously royer cribed central patchy and groundglass areas of opacification and consolidation have markedly improved . There are a few very small subtle areas of end airways groundglass attenuation particularly in the lower lung sullivan. There are a few scattered subcentimeter pulmonary nodules. Mild bilateral pleural fat prominence. No effusions. During expiration there is volume loss bilaterally with development of crowding of the lung markings. No bronchiectasis or honeycombing. No significant reticulation thickening. No mosaic attenuation or air trapping. No significantly enlarged lymph nodes. There are small mediastinal and hilar lymph nodes which are no t enlarged. Hepatic steatosis. Prior cholecystectomy. 17 mm LEFT adrenal adenoma. CT/CT chest wo con [id number] Impression: 1. Significant improvement in aeration of both lungs since the prior study of 08/23/2022. Resolution of pneumonia and central consolidations. 2. Very minimal residual end airways groundglass attenuation and a few scatter ed pulmonary nodules. Consider additional follow-up chest CT in 3-4 months. 3. No distortion or evidence for bronchiectasis or honeycombing. 4. Prior cholecystectomy. 5. Benign LEFT adrenal adenoma.
== END 2022-11-23 13:17 | disposition home or self-care (01) ==
PROVIDERS: PCP Clinical Nurse Specialist Adult Health; Visit Provider Internal Medicine Rheumatology
DX: M32.9 Systemic lupus erythematosus, unspecified (principal); D35.02 Benign neoplasm of left adrenal gland; Z90.49 Acquired absence of other specified parts of digestive tract; R91.8 Other nonspecific abnormal finding of lung field
CPT/HCPCS: 36415; 71250; 80076; 81001; 82306; 82565; 82570; 84156; 85025; 86140; 86160

== ENCOUNTER 2022-12-14 14:13 | Outpatient (CLI) | payer OTHER, SELFPAY ==
[2022-12-14 15:06] LABS: Estmated Average Glucose 120; Hemoglobin A1C 5.8 % (4.0-6.0)
[2022-12-14 15:18] LABS: Alanine Aminotransferase 34 U/L (0-33); Albumin Level 4.5 g/dL (3.5-5.2); Alkaline Phosphatase 66 U/L (35-105); Anion Gap 17.5 (5-19); Aspartate Amino Transferase 27 U/L (0-32); Blood Urea Nitrogen 7 mg/dL (6-20); Calcium 9.3 mg/dL (8.5-10.5); Carbon Dioxide 26 mmol/L (22-29); Chloride 91 mmol/L (98-107); Chol HDL Ratio 2.12 mg/dL (0.0-4.40); Cholesterol 106 mg/dL (0-200); Free T4 Free Thyroxine 2.17 ng/dL (0.82-1.77); Globulin 3.4 g/dL (1.3-4.6); Glomerular Filtration Rate 110.7 mL/min (90-130); Glucose 118 mg/dL (65-115); HDL Cholesterol 50 mg/dL (60-100); LDL Cholesterol Calculated 22 mg/dL (50-129); LDL HDL Ratio 0.44 RATIO (0.00-3.22); Osmolality Calculated 269 mOsm/kg (285-295); Potassium 4.5 mmol/L (3.5-5.1); Sodium 130 mmol/L (136-145); Thyroid Stimulating Hormone 0.27 uIU/mL (0.27-4.20); Total Bilirubin 0.2 mg/dL (0.15-1.2); Total Protein 7.9 g/dL (6.6-8.7); Triglycerides 168 mg/dL (0-150)
[2022-12-14 15:32] LABS: Creatinine Urine, Random 35 mg/dL (28-217); Microalbum Creatinine Ratio Ur 29 mg/dL (0-20); Microalbumin Random Urine 1 ug/dL (0-20)
== END 2022-12-14 14:14 | disposition home or self-care (01) ==
LOC: LAB 14:14
PROVIDERS: PCP Clinical Nurse Specialist Adult Health; Visit Provider Internal Medicine
DX: E03.9 Hypothyroidism, unspecified (principal); E11.9 Type 2 diabetes mellitus without complications
CPT/HCPCS: 36415; 80053; 80061; 82044; 83036; 84439; 84443

== ENCOUNTER 2022-12-30 12:04 | Emergency (ER) | payer OTHER, SELFPAY ==
[2022-12-30 12:07] VITALS: BP 136/85; PULSE 92; RESP 18; TEMP 36.4; O2SAT 99; BMI 47.5
--- NOTE | 2022-12-30 12:09 | ECG_ITS ---
[facility] Test Date: 2022-12-30 Pat Name: Lori Padron Department: Room: Gender: Female Vascular Technologist: : 1980 Requested By: Felipe Anderson Order Number: [id number] Yayo MD: Prachi Jimenes M.D. Measurements Intervals [place] Rate: 95 P: -24 NH: 131 QRS: 46 QRSD: 102 T: 1 QT: 368 QTc: 464 Interpretive Statements SINUS RHYTHM POSSIBLE ANTERIOR MYOCARDIAL INFARCTION , PROBABLY OLD [30 ms Q WAVE IN V3/V4, OR R < 0.2 mV IN V4] POSSIBLE INFERIOR MYOCARDIAL INFARCTION , PROBABLY OLD [30 ms Q WAVE IN II/aVF] Compared to ECG 05/06/2021 16:44:14 Myocardial infarct finding now present Electronically Signed On 12-30-2022 21:20:26 CDT by Prachi Jimenes M.D. [email or web address]
--- NOTE | 2022-12-30 12:19 | XR_ITS ---
WS: [id number] Portable AP upright chest, 12/30/2022 Clinical Data: cp Comparison: Portable chest, 08/23/2022 Findings: No nodules, masses or effusions are seen. There is minimal patchy opacity over the surface of the left diaphragm which could represent minimal pneumonia and/or atelectasis. The patient has a p oor inspiratory effort. The heart is normal. The pulmonary vascularity is not increased. No pneumonia or pneumothorax is seen. There are monitor leads on the chest wall. XR/XR chest 1V portable [id number] Impression: 1. Minimal patchy opacity over the surface of the left diaphragm. 2. Poor inspiratory effort.
[2022-12-30 12:54] LABS: Basophils # 0.1 10^3/uL (0.0-0.1); Basophils % 1.2 %; Eosinophils # 0.2 10^3/uL (0.0-0.8); Eosinophils % 1.6 %; Hematocrit 37.9 % (37.0-47.0); Hemoglobin 12.6 g/dL (11.5-15.3); Lymphocytes % 21.6 %; Mean Corpuscular HGB Conc 33.2 g/dL (30.0-36.0); Mean Corpuscular Volume 81.3 fl (81-99); Mean Platelet Volume 9.9 fL (7.4-10.4); Monocytes # 0.9 10^3/uL (0.2-0.9); Monocytes % 9.5 %; Neutrophils # 5.98 10^3/uL (1.8-7.7); Neutrophils % 65.6 %; Nucleated Red Blood Cells % 0 %; Platelet Count 305 10^3/cmm (130-400); Red Blood Count 4.66 10^6/uL (4.1-5.3); Red Cell Distribution Width 12.3 % (12.1-15.1); White Blood Count 9.1 10^3/uL (4.0-10.0)
[2022-12-30 13:07] LABS: HCG, Serum Qual Negative (Negative)
--- NOTE | 2022-12-30 13:09 | W.ED.CHESTPA ---
HPI - Chest Pain General: Chief Complaint: Chest Pain Stated Complaint: Chest Pain, SOB Time Seen by Provider: 12/30/22 12:30 Source: patient Mode of arrival: ambulatory History of Present Illness: 42-year-old female who presents to the emergency room with complaints of chest pain began around 1030 this morning. She externally Profen Tylenol at home is worse and she takes a deep breath. Is worse with palpation. She has had a little bit of a cough loose but nonproductive. She did note to the nurse that she not had chest pain before I believe I have seen her with similar symptoms in the past which she confirmed when I talked to her initially. She does have a history of diabetes mellitus. MD complaint: chest pain Onset (ago): minute(s) Timing of current episode: episodic Prior episodes: No Onset: during rest Pain location: substernal Pain radiation: none Quality: sharp Exacerbating factors: inspiration, palpation and movement Associated symptoms: Deny abdominal pain, diaphoresis, dyspnea, fever(s), leg edema, nausea, palpitations, sense of impending doom, syncope or vomiting Treatment prior to arrival: none Review of Systems Const: Reports: fatigue; Denies: fever(s), chills or diaphoresis ENMT: Denies: throat pain, ear or mastoid pain, nasal discharge or nasal congestion Card: Reports: chest pain; Denies: palpitations or syncope Resp: Reports: non-productive cough; Denies: dyspnea GI: Denies: abdominal pain, nausea or vomiting : Denies: flank pain, difficulty voiding, dysuria, urinary frequency or urinary urgency Skin/Breast: Denies: rash or pruritus PFS ED PFSH: Medical History Allergic rhinitis Bipolar 1 disorder Chronic urticaria COPD (chronic obstructive pulmonary disease) Depression Diabetes mellitus Type 2 GERD (gastroesophageal reflux disease) Helicobacter pylori gastritis Hyperlipemia, mixed Hypertension Hyponatremia Hypothyroidism Insomnia Labral tear of left hip joint Leukocytosis Mandibular fracture Mild intermittent asthma Morbid obesity KI (obstructive sleep apnea) Positive double stranded DNA antibody test PTSD (post-traumatic stress disorder) Rosacea Shingles 4th occurrence SLE (systemic lupus erythematosus related syndrome) Surgical History H/O esophagogastroduodenoscopy (09/02/21) H/O thyroidectomy History of mandibular surgery For mandibular fracture Previous section S/P breast lumpectomy Right breast lumpectomy for benign disease S/P cholecystectomy S/P tonsillectomy and adenoidectomy Family History Father Hypertension Cancer Cardiac abnormality Mother CHF (congestive heart failure) COPD (chronic obstructive pulmonary disease) Diabetes Other CAD (coronary artery disease) Family history of premature coronary artery disease Lung disease Rheumatoid arthritis Stroke Denies family history of Lupus Chronic kidney disease (CKD) Social History Smoking and tobacco status: former smoker Quit status (tobacco): has quit using tobacco Year quit tobacco: July Former quit date comment: Hx of 2 ppd X 25 years, started at age 16 yr. Smoking risk assessment/counseling performed?: Yes Alcohol intake: current Alcohol intake frequency: holidays/special occasions only Alcohol type: wine Desire information about alcohol rehabilitation?: No Counseling given: Yes Substance/Drug Use: never Desire information about substance/drug rehabilitation?: No Counseling given: Yes Adopted: No Caregiver/support person: No Lives independently: Yes Household members: spouse and family Housing: House Marital status: Number of children: 2 Number of grandchildren: 1 Highest education level completed: Some College, No Degree service: No Current occupational status: employed Sexually active: Yes Do you think of yourself as: Straight/Heterosexual Current gender identity: Female Balbina/Rastafarian: Quaker Special balbina needs: No Agree to transfusion: Yes Physical Exam Const: GENERAL APPEARANCE: cooperative and comfortable ORIENTATION/CONSCIOUSNESS: Yes awake, Yes oriented to person, Yes oriented to place and Yes oriented to time HENMT: COMMON NORMALS: normocephalic, atraumatic and hearing grossly normal bilaterally HEAD & SCALP: normocephalic and atraumatic Resp: COMMON NORMALS: normal respiratory effort, No retractions, No use of accessory muscles and clear to auscultation bilaterally AUSCULTATION: clear to auscultation bilaterally Cardio: COMMON NORMALS: regular rate, regular rhythm and No murmurs present (Cardio) RATE: regular rate RHYTHM: regular rhythm GI: COMMON NORMALS: Soft to palpation and No hepatosplenomegaly present AUSCULTATION: Yes normoactive bowel sounds PALPATION: Yes Soft to palpation, No Tenderness to palpation present (GI), No Guarding due to palpation present (GI) and Yes No hepatosplenomegaly present Extremity: COMMON NORMALS: normal to inspection, capillary refill normal, no clubbing, cyanosis or edema, no calf tenderness and no pedal edema Neuro: SENSORIUM/ORIENTATION: Yes oriented to person, Yes oriented to place and Yes oriented to time Skin: COMMON NORMALS: no rashes or lesions noted GENERAL SKIN EXAM: no rashes or lesions noted Course Vital Signs: Vital signs: Vital Signs Temperature 97.5 F L 12/30/22 12:07 Pulse Rate 82 12/30/22 14:06 Respiratory Rate 20 H 12/30/22 14:06 Blood Pressure 152/74 12/30/22 14:06 Pulse Oximetry 97 12/30/22 14:06 Oxygen Delivery Me thod Room Air 12/30/22 12:07 MDM - Chest Pain Medical Decision Making Chest x-ray showed minimal infiltrate over the left diaphragm no cardiomegaly no effusions we will go ahead and treat with oral antibiotics EKG did not show any acute chest pain is reproducible with palpation across anterior chest and with deep inspiration treat with anti-inflammatories chest x-ray otherwise unremarkable for pneumonia pneumothorax widening mediastinum. Medical Records I reviewed the patient's medical records. Lab Data I reviewed the patient's lab results. 12/30/22 12:30 12/30/22 12:30 Radiology Impressions Chest X-Ray 12/30/22 12:19 Impression: 1. Minimal patchy opacity over the surface of the left diaphragm. 2. Poor inspiratory effort. Laboratory Results WBC 9.1 10^3/uL (4.0-10.0) 12/30/22 12:30 RBC 4.66 10^6/uL (4.1-5.3) 12/30/22 12:30 Hgb 12.6 g/dL (11.5-15.3) 12/30/22 12:30 Hct 37.9 % (37.0-47.0) 12/30/22 12:30 MCV 81.3 fl (81-99) 12/30/22 12:30 MCH 27.0 pg (28.0-34.0) L 12/30/22 12:30 MCHC 33.2 g/dL (30.0-36.0) 12/30/22 12:30 RDW 12.3 % (12.1-15.1) 12/30/22 12:30 Plt Count 305 10^3/cmm (130-400) 12/30/22 12:30 MPV 9.9 fL (7.4-10.4) 12/30/22 12:30 Neut % (Auto) 65.6 % 12/30/22 12:30 Lymph % (Auto) 21.6 % 12/30/22 12:30 Vernon % (Auto) 9.5 % 12/30/22 12:30 Eos % (Auto) 1.6 % 12/30/22 12:30 Baso % (Auto) 1.2 % 12/30/22 12:30 Neut # (Auto) 5.98 10^3/uL (1.8-7.7) 12/30/22 12:30 Lymph # (Auto) 2.0 10^3/uL (0.8-4.8) 12/30/22 12:30 Vernon # (Auto) 0.9 10^3/uL (0.2-0.9) 12/30/22 12:30 Eos # (Auto) 0.2 10^3/uL (0.0-0.8) 12/30/22 12:30 Baso # (Auto) 0.1 10^3/uL (0.0-0.1) 12/30/22 12:30 Nucleated RBC % (auto) 0 % 12/30/22 12:30 Nucleated RBCs # 0.0 /100WBC 12/30/22 12:30 Sodium 129 mmol/L (136-145) L 12/30/22 12:30 Potassium 4.4 mmol/L (3.5-5.1) 12/30/22 12:30 Chloride 95 mmol/L (98-107) L 12/30/22 12:30 Carbon Dioxide 19 mmol/L (22-29) L 12/30/22 12:30 Anion Gap 19.4 (5-19) H 12/30/22 12:30 BUN 13 mg/dL (6-20) 12/30/22 12:30 Creatinine 0.6 mg/dL (0.5-0.9) 12/30/22 12:30 GFR Calculation 110.7 mL/min (90-130) 12/30/22 12:30 Glucose 90 mg/dL (65-115) 12/30/22 12:30 Calculated Osmolality 268 mOsm/kg (285-295) L 12/30/22 12:30 Calcium 9.7 mg/dL (8.5-10.5) 12/30/22 12:30 Total Bilirubin 0.2 mg/dL (0.15-1.2) 12/30/22 12:30 AST 16 U/L (0-32) 12/30/22 12:30 ALT 33 U/L (0-33) 12/30/22 12:30 Alkaline Phosphatase 64 U/L (35-105) 12/30/22 12:30 Troponin T Baseline 6 ng/L (0-10) 12/30/22 12:30 NT-Pro-B Natriuret Pep 36 pg/mL (0-125) 12/30/22 12:30 Total Protein 7.7 g/dL (6.6-8.7) 12/30/22 12:30 Albumin 4.6 g/dL (3.5-5.2) 12/30/22 12:30 Globulin 3.1 g/dL (1.3-4.6) 12/30/22 12:30 HCG, Qual Negative (Negative) 12/30/22 12:30 Discharge Plan Discharge Patient Disposition: Home Clinical Impression: Anterior chest wall pain, Pneumonia Condition: Stable Prescriptions: New doxycycline hyclate 100 mg capsule 100 mg PO BID 10 Days Qty: 20 0RF diclofenac sodium 75 mg tablet,delayed release (DR/EC) 75 mg PO Q12H PRN (Reason: pain) Qty: 20 0RF No Action omega-3 fatty acids [Fish Oil Concentrate] 1,000 mg capsule 500 mg PO BEDTIME topiramate 50 mg tablet 50 mg PO BID 30 Days Qty: 60 0RF diclofenac potassium 50 mg tablet 50 mg PO BID levothyroxine 200 mcg tablet 200 mcg PO DAILY Qty: 60 0RF trazodone 100 mg tablet 100 mg PO BID dextroamphetamine-amphetamine [Adderall XR] 25 mg capsule,extended release 24hr 25 mg PO DAILY doxycycline hyclate 100 mg tablet 100 mg PO BID Qty: 14 0RF budesonide-formoterol [Symbicort] 160-4.5 mcg/actuation HFA aerosol inhaler 2 puff inhalation BID Qty: 10.2 3RF montelukast [Singulair] 10 mg tablet 10 mg PO DAILY Qty: 30 3RF triamcinolone acetonide 0.1 % cream 1 applic topical BID Qty: 30 0RF docusate sodium [Colace] 100 mg capsule 200 mg PO DAILY hydroxychloroquine 200 mg tablet 200 mg PO BID Qty: 60 3RF potassium chloride 10 mEq tablet extended release 10 meq PO DAILY Qty: 14 0RF furosemide [Lasix] 20 mg tablet 20 mg PO DAILY Qty: 14 0RF albuterol sulfate [Ventolin HFA] 90 mcg/actuation HFA aerosol inhaler 2 puff INHALATION Q4H PRN (Reason: Shortness Of Breath) Qty: 8.5 3RF azithromycin [Zithromax] 500 mg tablet 500 mg PO DAILY 5 Days Qty: 5 0RF fluticasone propionate [Flonase Allergy Relief] 50 mcg/actuation spray,suspension 2 spray intranasal DAILY Qty: 16 0RF Rx Instructions: administer into each nostril ondansetron 4 mg tablet,disintegrating 4 mg PO Q6H PRN (Reason: nausea and vomiting) Qty: 60 1RF atorvastatin 20 mg tablet 20 mg PO DAILY Qty: 90 3RF hydroxyzine HCl 25 mg tablet 50 mg PO QID 30 Days Qty: 240 3RF buspirone 10 mg tablet 20 mg PO TID Qty: 90 3RF pantoprazole [Protonix] 40 mg tablet,delayed release (DR/EC) 40 mg PO BID Qty: 60 11RF levothyroxine 200 mcg tablet 200 mcg PO DAILY Qty: 90 2RF Rx Instructions: Take 200 mcg every day and add 75mcg on Tuesday and Tuesday lisinopril 20 mg tablet 40 mg PO BEDTIME Qty: 60 11RF insulin lispro [Humalog KwikPen Insulin] 100 unit/mL insulin pen See Protocol SUBCUT TID Qty: 15 2RF Protocol: Insulin Corrective High-Dose Regimen Condition: Fingerstick Blood Glucose Dose/Route: Insulin Units Condition: 141-180 mg/dl Dose/Route: 4 units/SQ Condition: 181-220 mg/dl Dose/Route: 6 units/SQ Condition: 221-260 mg/dl Dose/Route: 8 units/SQ Condition: 261-300 mg/dl Dose/Route: 10 units/SQ Condition: 301-350 mg/dl Dose/Route: 12 units/SQ Condition: 351-400 mg/dl Dose/Route: 14 units/SQ Condition: greater than 400 mg/dl Dose/Route: 18 units/SQ prednisone 10 mg tablet See Rx Instructions PO .COMPLEX PRN (Reason: joint pain) Qty: 30 0RF Rx Instructions: take 1 tab daily for 3-7 days prn joint pain flare PO PRN; cholecalciferol (vitamin D3) 1,250 mcg (50,000 unit) capsule 50,000 unit PO Q7D Qty: 15 0RF albuterol sulfate 2.5 mg /3 mL (0.083 %) solution for nebulization 2.5 mg inhalation Q4H PRN (Reason: Shortness Of Breath) Qty: 90 3RF diclofenac sodium 75 mg tablet,delayed release (DR/EC) 75 mg PO BID PRN (Reason: pain) Qty: 60 1RF gabapentin 600 mg tablet See Rx Instructions .ROUTE .COMPLEX Qty: 60 1RF Dose Instruction: TAKE 1 TABLET BY MOUTH TWICE DAILY Rx Instructions: TAKE 1 TABLET BY MOUTH TWICE DAILY Ozempic 2 mg/dose (8 mg/3 mL) pen injector 2 mg SUBCUT .weekly Qty: 3 1RF acetaminophen [Tylenol Extra Strength] 500 mg Tablet 1,000 mg PO Q6H PRN (Reason: Pain) melatonin 5 mg Tablet 10 mg PO BEDTIME fluticasone propionate 50 mcg/actuation spray,suspension 1 - 2 spray INTRANASAL DAILY PRN (Reason: alternates with azelastine every other day) lamotrigine 100 mg tablet 200 mg PO BEDTIME diphenhydramine HCl [Benadryl Allergy] 25 mg Tablet 25 - 50 mg PO PRN ibuprofen 800 mg tablet 800 mg PO Q8H PRN (Reason: pain) Qty: 20 0RF azelastine 205.5 mcg (0.15 %) spray,non-aerosol 2 spray INTRANASAL BID PRN (Reason: alternates with flonase every other day) levothyroxine 75 mcg tablet See Rx Instructions .ROUTE .COMPLEX Rx Instructions: In addition to 200 mcg at bedtime on Tuesday and Tuesdays epinephrine [EpiPen 2-Edward] 0.3 mg/0.3 mL auto-injector 0.3 mg IM Q15M PRN (Reason: anaphylaxis) Qty: 2 0RF Rx Instructions: for 2 doses ziprasidone HCl 80 mg Capsule 80 mg PO BID hydrochlorothiazide 25 mg tablet 25 mg PO QAM Qty: 30 0RF ipratropium-albuterol 0.5 mg-3 mg(2.5 mg base)/3 mL solution for nebulization 3 ml inhalation Q8H PRN (Reason: wheezing) Qty: 90 0RF Discharge Orders: Discharge ED (Routine); Ordered 12/30/22 Ordered By: David Wallace Referrals: Pierre Jaramillo, CUSTODIAL MAINTENANCE WORKER [Primary Care Provider] - Discharge Diet: Usual diet Discharge Activity: Increase activity as tolerated Patient Instructions: Opioid Safety, Pain Management Activity Restrictions/Additional Instructions: You are seen today for chest wall pain. Your chest x-ray showed a questionable early pneumonia. We gave you a prescription for anti-inflammatories and course of antibiotics recheck if not improving Coding Level of Care Code ED [employer] for Chao Monsalve
[2022-12-30 13:15] LABS: Troponin(5th) Baseline 6 ng/L (0-10)
[2022-12-30 13:25] LABS: Alanine Aminotransferase 33 U/L (0-33); Albumin Level 4.6 g/dL (3.5-5.2); Alkaline Phosphatase 64 U/L (35-105); Anion Gap 19.4 (5-19); Aspartate Amino Transferase 16 U/L (0-32); Blood Urea Nitrogen 13 mg/dL (6-20); Calcium 9.7 mg/dL (8.5-10.5); Carbon Dioxide 19 mmol/L (22-29); Chloride 95 mmol/L (98-107); Globulin 3.1 g/dL (1.3-4.6); Glomerular Filtration Rate 110.7 mL/min (90-130); Glucose 90 mg/dL (65-115); NT Pro B Type Natriuretic Pept 36 pg/mL (0-125); Osmolality Calculated 268 mOsm/kg (285-295); Potassium 4.4 mmol/L (3.5-5.1); Sodium 129 mmol/L (136-145); Total Bilirubin 0.2 mg/dL (0.15-1.2); Total Protein 7.7 g/dL (6.6-8.7)
[2022-12-30 13:37] VITALS: BP 137/89; PULSE 83; RESP 24; O2SAT 95
[2022-12-30 14:06] VITALS: BP 152/74; PULSE 82; RESP 20; O2SAT 97
[2022-12-30 14:56] VITALS: BP 123/96; PULSE 78; O2SAT 97
[2022-12-30 15:01] LABS: Troponin 5 2HR Delta 0 ABS# (0-10)
== END 2022-12-30 14:57 | disposition home or self-care (01) ==
PROVIDERS: Physician Assistant; Emergency Provider Family Medicine; PCP Clinical Nurse Specialist Adult Health
DX: R07.89 Other chest pain (principal); J18.9 Pneumonia, unspecified organism; Z79.4 Long term (current) use of insulin; Z87.891 Personal history of nicotine dependence; J44.9 Chronic obstructive pulmonary disease, unspecified; E11.9 Type 2 diabetes mellitus without complications; E78.2 Mixed hyperlipidemia; I10 Essential (primary) hypertension; M32.9 Systemic lupus erythematosus, unspecified
CPT/HCPCS: 36415; 71045; 80053; 83880; 84484; 84703; 85025; 93005; 99285

== ENCOUNTER → 2023-02-16 11:03 | Outpatient (BNVA) | payer OTHER, SELFPAY | PROVIDERS: PCP Clinical Nurse Specialist Adult Health; Visit Provider Internal Medicine | DX: E11.9 Type 2 diabetes mellitus without complications (principal); E78.2 Mixed hyperlipidemia; E03.9 Hypothyroidism, unspecified | CPT/HCPCS: 36415; 84439; 84443; 84480 ==

== ENCOUNTER 2023-02-22 06:43 | Outpatient (CLI) | payer OTHER, SELFPAY ==
--- NOTE | 2023-02-22 07:00 | US_ITS ---
WS: [id number] RIGHT UPPER QUADRANT ULTRASOUND HISTORY: fatty liver COMPARISON: 08/23/2006 Liver: 19.2 cm in length. Moderately enlarged liver with mild diffuse coarse echotexture throughout. No mass. No bile duct dilatation. Liver has slightly increased in size since 2005. Portal Vein: Normal hepatopetal flow with monophasic waveform. Gallbladder: Status post cholecystectomy. CBD: 0.2 cm Pancreas: Normal size and echogenicity. Right kidney: 11.7 cm in length. Normal size and echogenicity. No hydronephrosis or mass. Aorta and IVC: Unremarkable abdominal aorta and IVC. No ascites. US/US liver [id number] IMPRESSION: 1. Prior cholecystectomy. 2. No bile duct dilatation. 3. Moderately enlarged liver.
== END 2023-02-22 06:44 | disposition home or self-care (01) ==
LOC: RAD 06:43
PROVIDERS: PCP Clinical Nurse Specialist Adult Health; Visit Provider Internal Medicine
DX: K76.0 Fatty (change of) liver, not elsewhere classified (principal)
CPT/HCPCS: 76705

== ENCOUNTER → 2023-03-03 15:31 | Outpatient (BNVA) | payer OTHER, SELFPAY | PROVIDERS: PCP Clinical Nurse Specialist Adult Health; Visit Provider Emergency Medicine | DX: N23 Unspecified renal colic (principal) | CPT/HCPCS: 81000; 87086 ==

== ENCOUNTER 2023-04-18 16:14 | Outpatient (CLI) | payer OTHER, SELFPAY ==
--- NOTE | 2023-04-18 16:19 | CT_ITS ---
WS: [id number] CT chest wo con [id number] HISTORY: to follow up on nodules seen on CT in october 2022 TECHNIQUE: Axial imaging performed through the thorax. Coronal and sagittal reformats are submitted. All CT scans at [facility] use at least one of these dose optimization techniques: automated exposure control; mA and/or kV adjustment per patient size (includes targeted exams where dose is mat ched to clinical indication); or iterative reconstruction. CONTRAST: None DLP: 601.64 mGy.cm COMPARISON: 11/23/2022, 08/23/2022 Lungs and central airway: Lungs are very slightly hyperexpanded. No mass, pneumonia or consolidations . No obvious groundglass opacification remains. No mass or nodule. Pleura: Normal. No pleural effusion. Heart and pericardium: Normal size heart with no pericardial effusion. Mediastinum and alee: No mediastinum or hilar adenopathy. Vessels: Normal size aortic and pulmonary artery. No coronary artery calcifications. Chest wall and lower neck: No soft tissue masses. Upper abdomen: Small hiatal hernia. Hepatic steatosis. Prior cholecystectomy. Left adrenal adenoma at 1.9 cm is reidentified. Osseous structures: Scoliosis. Mild thoracic spondylosis. IMPRESSION: 1. No residual consolidations or groundglass attenuation. No nodules or masses identified. 2. Normal size heart. 3. Small hiatal hernia. 4. Prior cholecystectomy. 5. No pleural effusion. 6. Stable left adrenal adenoma.
== END 2023-04-18 16:15 | disposition home or self-care (01) ==
LOC: RAD 16:17
PROVIDERS: PCP Family Medicine; Visit Provider Internal Medicine Pulmonary Disease
DX: R91.8 Other nonspecific abnormal finding of lung field (principal); K44.9 Diaphragmatic hernia without obstruction or gangrene; Z90.49 Acquired absence of other specified parts of digestive tract
CPT/HCPCS: 36415; 71250; 80053; 80061; 80076; 82044; 82088; 82565; 83036; 84244; 85025; 86140

== ENCOUNTER 2023-04-20 07:16 | Outpatient (CLI) | payer OTHER, SELFPAY ==
[2023-04-20 07:49] LABS: Urine Creatinine 63 mg/dL (28-217)
[2023-04-20 08:22] LABS: Total Volume Urine 2300 ml
[2023-04-29 11:25] LABS: Free Cortisol Urine 36.6 mcg/24 h (4.0-50.0); Total Urine 2300 mL
== END 2023-04-20 07:17 | disposition home or self-care (01) ==
LOC: LAB 07:20
PROVIDERS: PCP Family Medicine; Visit Provider Internal Medicine
DX: E03.9 Hypothyroidism, unspecified (principal); E11.9 Type 2 diabetes mellitus without complications; E78.2 Mixed hyperlipidemia
CPT/HCPCS: 82384; 82530; 82570

== ENCOUNTER → 2023-04-26 14:27 | Outpatient (BNVA) | payer OTHER, SELFPAY | PROVIDERS: PCP Family Medicine; Visit Provider Internal Medicine | DX: E03.9 Hypothyroidism, unspecified (principal) | CPT/HCPCS: 36415; 84439; 84443 ==

== ENCOUNTER → 2023-07-13 15:13 | Outpatient (BNVA) | payer OTHER, SELFPAY | PROVIDERS: PCP Family Medicine; Visit Provider Internal Medicine Rheumatology | DX: M32.9 Systemic lupus erythematosus, unspecified (principal) | CPT/HCPCS: 36415; 80076; 82565; 85025; 86140 ==

== ENCOUNTER 2023-07-15 09:38 | Outpatient (CLI) | payer OTHER, SELFPAY ==
[2023-07-15 10:19] LABS: Total Volume Urine 1100 ml
[2023-07-15 10:25] LABS: Urine Creatinine 94 mg/dL (28-217)
[2023-07-27 08:25] LABS: Free Cortisol Urine 12.7 mcg/24 h (4.0-50.0); Total Urine 1100 mL
== END 2023-07-15 09:39 | disposition home or self-care (01) ==
LOC: LAB 09:38
PROVIDERS: PCP Family Medicine; Visit Provider Internal Medicine
DX: E11.9 Type 2 diabetes mellitus without complications (principal)
CPT/HCPCS: 82384; 82530; 82570

== ENCOUNTER 2023-08-24 07:02 | Outpatient (CLI) | payer OTHER, SELFPAY ==
[2023-08-24 08:06] LABS: Estmated Average Glucose 105; Hemoglobin A1C 5.3 % (4.0-6.0)
[2023-08-24 08:15] LABS: Alanine Aminotransferase 23 U/L (0-33); Albumin Level 4.6 g/dL (3.5-5.2); Alkaline Phosphatase 75 U/L (35-105); Anion Gap 12.9 (5-19); Aspartate Amino Transferase 15 U/L (0-32); Blood Urea Nitrogen 8 mg/dL (6-20); Calcium 9.5 mg/dL (8.5-10.5); Carbon Dioxide 26 mmol/L (22-29); Chloride 94 mmol/L (98-107); Chol HDL Ratio 1.79 mg/dL (0.0-4.40); Cholesterol 129 mg/dL (0-200); Globulin 3.1 g/dL (1.3-4.6); Glucose 87 mg/dL (65-115); HDL Cholesterol 72 mg/dL (60-100); LDL Cholesterol Calculated 39 mg/dL (50-129); LDL HDL Ratio 0.54 RATIO (0.00-3.22); Osmolality Calculated 266 mOsm/kg (285-295); Potassium 3.9 mmol/L (3.5-5.1); Sodium 129 mmol/L (136-145); Thyroid Stimulating Hormone 4.49 uIU/mL (0.27-4.20); Total Bilirubin 0.2 mg/dL (0.15-1.2); Total Protein 7.7 g/dL (6.6-8.7); Triglycerides 90 mg/dL (0-150)
[2023-08-24 08:28] LABS: Creatinine Urine, Random 45 mg/dL (28-217); Microalbum Creatinine Ratio Ur 22 mg/dL (0-20); Microalbumin Random Urine 1 ug/dL (0-20)
== END 2023-08-24 07:03 | disposition home or self-care (01) ==
LOC: LAB 07:02
PROVIDERS: PCP Family Medicine; Visit Provider Internal Medicine
DX: E11.9 Type 2 diabetes mellitus without complications (principal); E78.2 Mixed hyperlipidemia; E03.9 Hypothyroidism, unspecified
CPT/HCPCS: 36415; 80053; 80061; 82044; 83036; 84439; 84443

== ENCOUNTER → 2023-08-25 17:34 | Outpatient (BNVA) | payer OTHER, SELFPAY | PROVIDERS: PCP Family Medicine; Visit Provider Nurse Practitioner | DX: R39.9 Unspecified symptoms and signs involving the genitourinary system (principal); N12 Tubulo-interstitial nephritis, not specified as acute or chronic | CPT/HCPCS: 81000; 87086 ==

== ENCOUNTER 2023-08-26 07:28 | Outpatient (CLI) | payer OTHER, SELFPAY ==
[2023-09-01 14:40] LABS: Calculated Total (E+NE) 45 mcg/24 h (26-121)
== END 2023-08-26 07:29 | disposition home or self-care (01) ==
PROVIDERS: PCP Family Medicine; Visit Provider Internal Medicine
DX: E11.9 Type 2 diabetes mellitus without complications (principal)
CPT/HCPCS: 82384

== ENCOUNTER 2023-08-26 13:22 | Emergency (ER) | payer OTHER, SELFPAY ==
[2023-08-26 13:26] VITALS: BP 158/94; PULSE 89; RESP 18; TEMP 36.4; O2SAT 100; BMI 49.4
[2023-08-26 14:22] LABS: Basophils # 0.1 10^3/uL (0.0-0.1); Basophils % 1.3 %; Eosinophils # 0.1 10^3/uL (0.0-0.8); Eosinophils % 1.6 %; Hematocrit 33.8 % (36-47); Lymphocytes % 29.8 %; Mean Corpuscular HGB Conc 33.1 g/dL (30-55); Mean Corpuscular Hemoglobin 27.7 pg (27-33); Mean Corpuscular Volume 83.7 fl (85-98); Monocytes # 0.5 10^3/uL (0.2-0.9); Monocytes % 6.8 %; Neutrophils # 4.09 10^3/uL (1.8-7.7); Neutrophils % 60.1 %; Nucleated Red Blood Cells % 0 %; Platelet Count 287 10^3/cmm (157-399); Red Blood Count 4.04 10^6/uL (3.85-5.65); Red Cell Distribution Width 13.4 % (12.1-15.1); White Blood Count 6.81 10^3/uL (3.29-11.43)
--- NOTE | 2023-08-26 14:33 | ED_ITS ---
HPI - Abdominal Pain 2 General: Chief Complaint: Abdominal Pain Stated Complaint: abd pain/low back pian Time Seen by Provider: 08/26/23 13:45 History of Present Illness: Presents to the ER complaining of bilateral flank pain and nausea. Patient says this started a couple days ago she went to the urgent care last night and had a urinalysis done said she had a UTI and was started on Cipro she is taken 2 doses of Cipro. Patient says that the pain is got worse since then and also the strong ammonia smell to her urine has worsened. Patient says she has a history of having kidney stones and kidney infections but this is worse than those have been in the past. Patient is also has lupus as is on several antilupus type medicines. Review of Systems 2 General: Reports: 10 or more systems reviewed and unremarkable except in HPI and below PFSH ED 2 PFSH: Medical History Lung injury associated with vaping Contact dermatitis SLE (systemic lupus erythematosus related syndrome) Hypothyroidism COPD (chronic obstructive pulmonary disease) Leukocytosis Rosacea Positive double stranded DNA antibody test Labral tear of left hip joint KI (obstructive sleep apnea) Morbid obesity Bipolar 1 disorder PTSD (post-traumatic stress disorder) Hyponatremia Chronic urticaria Insomnia Mild intermittent asthma Allergic rhinitis GERD (gastroesophageal reflux disease) Shingles 4th occurrence Hyperlipemia, mixed Helicobacter pylori gastritis Mandibular fracture Diabetes mellitus Type 2 Depression Hypertension Surgical History History of mandibular surgery For mandibular fracture H/O esophagogastroduodenoscopy (09/02/21) H/O thyroidectomy S/P cholecystectomy S/P tonsillectomy and adenoidectomy S/P breast lumpectomy Right breast lumpectomy for benign disease Previous section Family History Father Hypertension Cancer testicular Cardiac abnormality Mother CHF (congestive heart failure) COPD (chronic obstructive pulmonary disease) Diabetes Cancer ovarian and uterine Family/Other Cancer Maternal aunt- HR2 breast Other CAD (coronary artery disease) Family history of premature coronary artery disease Hyperlipidemia Lung disease Psychiatric illness Rheumatoid arthritis Stroke Denies family history of Lupus Clotting disorder Dementia Chronic kidney disease (CKD) Anesthesia complication Bleeding disorder Social History (Reviewed 08/26/23 @ 14:34 by JUANPABLO Brown Smoking and tobacco/nicotine status: former use of tobacco/nicotine Quit status (tobacco/nicotine): has quit using Year quit tobacco: July Former quit date comment: Hx of 2 ppd X 25 years, started at age 16 yr. Alcohol intake: former Substance/Drug Use: never Adopted: No Caregiver/support person: No Lives independently: Yes Household members: spouse and family Housing: House Marital status: Number of children: 2 Number of grandchildren: 1 Highest education level completed: Some College, No Degree service: No Current occupational status: employed Current occupation: [employer] Sexually active: Yes Do you think of yourself as: Straight/Heterosexual Current gender identity: Female Balbina/Scientology: Roman Catholic Special balbina needs: No Agree to transfusion: Yes Physical Exam 2 Const: COMMON NORMALS: no acute distress, average body habitus, patient oriented x3, no limitations, healthy appearing, alert and well nourished HENMT: COMMON NORMALS: normocephalic, atraumatic, hearing grossly normal bilaterally, external ears normal, Normal external nose present, moist oral mucous membranes and oropharynx normal HEAD & SCALP: normocephalic and atraumatic NOSE: Normal external nose present EXTERNAL EAR: Yes external ears normal Eye: COMMON NORMALS: Equal, round and reactive pupils present, EOMs intact bilaterally, conjunctivae normal and no scleral icterus CONJUNCTIVA: Yes conjunctivae normal PUPIL: Yes Equal, round and reactive pupils present Neck/C-Spine: COMMON NORMALS: full ROM, no lymphadenopathy, supple, no meningeal signs, no JVD and Thyroid normal THYROID: Thyroid normal Chest: COMMONS NORMALS: normal inspection of the chest and normal palpation of entire chest wall Resp: COMMON NORMALS: normal respiratory effort, No retractions, No use of accessory muscles and clear to auscultation bilaterally AUSCULTATION: clear to auscultation bilaterally Cardio: COMMON NORMALS: no JVD, regular rate, regular rhythm, S1 normal heart sound present, S2 normal heart sound present, No gallops present (Cardio), No clicks present (Cardio), No murmurs present (Cardio) and No rub (Cardio) R ATE: regular rate RHYTHM: regular rhythm HEART SOUNDS: S1 normal heart sound present and S2 normal heart sound present GI: COMMON NORMALS: Normal to inspection, nondistended, normoactive bowel sounds present, Soft to palpation, non-tender, No hepatosplenomegaly present and no masses PALPATION: Yes Soft to palpation and Yes No hepatosplenomegaly present Back/Pelvis: OTHER: Mildly tender to palpate over bilateral paraspinal musculature flank area Neuro: COMMON NORMALS: patient oriented x3 SENSORIUM/ORIENTATION: Yes alert MENINGEAL SIGNS: Yes no meningeal signs Course 2 Vital Signs: Vital signs: Vital Signs Temperature 97.6 F 08/26/23 13:26 Pulse Rate 90 08/26/23 15:37 Respiratory Rate 20 H 08/26/23 16:32 Blood Pressure 128/67 08/26/23 15:37 Pulse Oximetry 100 08/26/23 15:37 Oxygen Delivery Me thod Room Air 08/26/23 15:37 MDM - Abdominal Pain Medical Decision Making Presents to the ER with complaints of bilateral flank pain nausea vomiting and chills. Patient just recently started on Cipro for urinary tract infection. Lab work was obtained which was essentially unremarkable. Patient sodium is low at 128 but she is chronically low. Patient has CT scan of the abdomen pelvis which showed no acute findings. Patient was given pain medicine here in ER and nausea medicine and this controlled the pain. Patient will be discharged with diagnosis of pyelonephritis and she is to continue the Cipro as it appears to be working because her urine was fairly clean and she will be prescribed Pyridium for the pain. Differential Diagnosis Unlikely abdominal pain, acute appendicitis, calculus of kidney, constipation, diverticulitis, endometriosis, gastroenteritis, pancreatitis or small bowel obstruction Medical Records I reviewed the patient's medical records. Lab Data I reviewed the patient's lab results. 08/26/23 14:08 08/26/23 14:08 Labs/Radiology: Radiology Impressions Abdomen/Pelvis CT 08/26/23 14:46 IMPRESSION: 1. No acute findings within the abdomen or pelvis. 2. Additional nonemergent findings as above. Laboratory Results WBC 6.81 10^3/uL (3.29-11.43) 08/26/23 14:08 RBC 4.04 10^6/uL (3.85-5.65) 08/26/23 14:08 Hgb 11.20 g/dL (11.27-16.99) L 08/26/23 14:08 Hct 33.8 % (36-47) L 08/26/23 14:08 MCV 83.7 fl (85-98) L 08/26/23 14:08 MCH 27.7 pg (27-33) 08/26/23 14:08 MCHC 33.1 g/dL (30-55) 08/26/23 14:08 RDW 13.4 % (12.1-15.1) 08/26/23 14:08 Plt Count 287 10^3/cmm (157-399) 08/26/23 14:08 MPV 9.0 fL (7.4-10.4) 08/26/23 14:08 Neut % (Auto) 60.1 % 08/26/23 14:08 Lymph % (Auto) 29.8 % 08/26/23 14:08 Stevens % (Auto) 6.8 % 08/26/23 14:08 Eos % (Auto) 1.6 % 08/26/23 14:08 Baso % (Auto) 1.3 % 08/26/23 14:08 Neut # (Auto) 4.09 10^3/uL (1.8-7.7) 08/26/23 14:08 Lymph # (Auto) 2.0 10^3/uL (0.8-4.8) 08/26/23 14:08 Stevens # (Auto) 0.5 10^3/uL (0.2-0.9) 08/26/23 14:08 Eos # (Auto) 0.1 10^3/uL (0.0-0.8) 08/26/23 14:08 Baso # (Auto) 0.1 10^3/uL (0.0-0.1) 08/26/23 14:08 Nucleated RBC % (auto) 0 % 08/26/23 14:08 Nucleated RBCs # 0.0 /100WBC 08/26/23 14:08 Sodium 128 mmol/L (136-145) L 08/26/23 14:08 Potassium 4.4 mmol/L (3.5-5.1) 08/26/23 14:08 Chloride 94 mmol/L (98-107) L 08/26/23 14:08 Carbon Dioxide 24 mmol/L (22-29) 08/26/23 14:08 Anion Gap 14.4 (5-19) 08/26/23 14:08 BUN 15 mg/dL (6-20) 08/26/23 14:08 Creatinine 0.5 mg/dL (0.5-0.9) 08/26/23 14:08 GFR Calculation 136.0 mL/min (90-130) H 08/26/23 14:08 Glucose 114 mg/dL (65-115) 08/26/23 14:08 Calculated Osmolality 268 mOsm/kg (285-295) L 08/26/23 14:08 Calcium 9.4 mg/dL (8.5-10.5) 08/26/23 14:08 Total Bilirubin 0.2 mg/dL (0.15-1.2) 08/26/23 14:08 AST 14 U/L (0-32) 08/26/23 14:08 ALT 25 U/L (0-33) 08/26/23 14:08 Alkaline Phosphatase 78 U/L (35-105) 08/26/23 14:08 Total Protein 7.2 g/dL (6.6-8.7) 08/26/23 14:08 Albumin 4.2 g/dL (3.5-5.2) 08/26/23 14:08 Globulin 3.0 g/dL (1.3-4.6) 08/26/23 14:08 Lipase 28 U/L (13-60) 08/26/23 14:08 Urine Color Yellow (Yellow) 08/26/23 14:17 Urine Appearance Clear (CLEAR) 08/26/23 14:17 Urine pH 5 (5-7) 08/26/23 14:17 Ur Specific [place] 1.025 (1.005-1.030) 08/26/23 14:17 Urine Protein Trace (Negative) 08/26/23 14:17 Urine Glucose (UA) Norm (Normal) 08/26/23 14:17 Urine Ketones Negative (Negative) 08/26/23 14:17 Urine Blood Neg (Negative) 08/26/23 14:17 Urine Nitrate Negative (Negative) 08/26/23 14:17 Urine Bilirubin 1+ (Negative) H 08/26/23 14:17 Urine Urobilinogen 1 mg/dL (Negative) H 08/26/23 14:17 Ur Leukocyte Esterase Negative (Negative) 08/26/23 14:17 Urine RBC 0-4 /hpf (0-2) H 08/26/23 14:17 Urine WBC 0-4 /hpf (0-5) H 08/26/23 14:17 Ur Squamous Epith Cells 0-4 /hpf (0-5) H 08/26/23 14:17 Amorphous Sediment Not Reportable 08/26/23 14:17 Urine Bacteria Trace /hpf (NONE) 08/26/23 14:17 Urine Mucus 2+ /hpf 08/26/23 14:17 All radiology interpretation(s) finalized by discharge Discharge Plan Discharge Patient Disposition: Home Clinical Impression: Pyelonephritis, Bilateral flank pain Condition: Stable Prescriptions: No Action trazodone 100 mg tablet 150 mg PO .hs docusate sodium [Colace] 100 mg capsule 200 mg PO DAILY albuterol sulfate [Ventolin HFA] 90 mcg/actuation HFA aerosol inhaler 2 puff INHALATION Q4H PRN (Reason: Shortness Of Breath) Qty: 8.5 3RF Trelegy Ellipta 100-62.5-25 mcg blister with device 1 inh inhalation DAILY Qty: 60 6RF folic acid 1 mg tablet 1 mg PO DAILY Qty: 90 1RF (DME) insulin syringes (disposable) 1 mL syringe See Rx Instructions .ROUTE .MEDSUPPLY Qty: 25 1RF Rx Instructions: As directed levothyroxine 200 mcg tablet 200 mcg PO DAILY Rx Instructions: 200mcg tue-tue, 100mcg on tuesday (DME) Polar ice box for hip pain See Rx Instructions .Route .MEDSUPPLY Qty: 1 0RF Rx Instructions: As directed atorvastatin 20 mg tablet 20 mg PO DAILY Qty: 90 3RF epinephrine [EpiPen 2-Edward] 0.3 mg/0.3 mL auto-injector 0.3 mg IM Q15M PRN (Reason: anaphylaxis) Qty: 2 0RF Rx Instructions: for 2 doses lisinopril 40 mg tablet 40 mg PO BEDTIME Qty: 90 2RF montelukast [Singulair] 10 mg tablet 10 mg PO DAILY Qty: 90 3RF pantoprazole [Protonix] 40 mg tablet,delayed release (DR/EC) 40 mg PO BID Qty: 180 2RF Benlysta 200 mg/mL syringe 200 mg SUBCUT .Q7days Qty: 4 3RF hydroxychloroquine 200 mg tablet 200 mg PO BID Qty: 180 1RF methotrexate sodium 25 mg/mL solution 25 mg SUBCUT .Q7days Qty: 10 1RF prednisone 10 mg tablet See Rx Instructions PO .COMPLEX PRN (Reason: joint pain) Qty: 30 1RF Rx Instructions: take 1 tab daily for 3-7 days prn joint pain flare PO PRN; oxcarbazepine [Trileptal] 600 mg tablet See Rx Instructions PO .COMPLEX Rx Instructions: Take one in am and 2 in pm orally; albuterol sulfate 2.5 mg /3 mL (0.083 %) solution for nebulization 2.5 mg inhalation Q4H PRN (Reason: Shortness Of Breath) Qty: 90 3RF ondansetron 4 mg tablet,disintegrating See Rx Instructions .ROUTE .COMPLEX Qty: 60 1RF Dose Instruction: DISSOLVE ONE TABLET BY MOUTH EVERY 6 HOURS NEEDED FOR NAUSEA AND VOMITING Rx Instructions: DISSOLVE ONE TABLET BY MOUTH EVERY 6 HOURS NEEDED FOR NAUSEA AND VOMITING acetaminophen [Tylenol Extra Strength] 500 mg Tablet 1,000 mg PO Q6H PRN (Reason: Pain) diphenhydramine HCl [Benadryl Allergy] 25 mg Tablet 25 - 50 mg PO PRN azelastine 205.5 mcg (0.15 %) spray,non-aerosol 2 spray INTRANASAL BID PRN (Reason: alternates with flonase every other day) ziprasidone HCl 80 mg Capsule 80 mg PO BID ipratropium-albuterol 0.5 mg-3 mg(2.5 mg base)/3 mL solution for nebulization 3 ml inhalation Q8H PRN (Reason: wheezing) Qty: 90 0RF buspirone 30 mg tablet 30 mg PO BID dextroamphetamine-amphetamine 30 mg capsule,extended release 24hr 30 mg PO QAM Rexulti 2 mg tablet 2 mg PO DAILY gabapentin 600 mg tablet 600 mg PO BID furosemide 20 mg tablet 20 mg PO DAILY PRN (Reason: Edema) Discharge Orders: Discharge ED (Routine); Ordered 08/26/23 Ordered By: Compa Byers Referrals: Elan Kuhn MD [Primary Care Provider] - 1 week Patient Instructions: Kidney Infection (ED), Flank Pain (ED) Activity Restrictions/Additional Instructions: Please finish up the Cipro as previously prescribed. Please take all medicine as directed. Please follow-up with your family practice physician within next 7 days f further evaluation and treatment. Coding Level of Care Code ED Dry Wall Applicator for Chao Monsalve
[2023-08-26 14:37] LABS: Alanine Aminotransferase 25 U/L (0-33); Albumin Level 4.2 g/dL (3.5-5.2); Alkaline Phosphatase 78 U/L (35-105); Anion Gap 14.4 (5-19); Aspartate Amino Transferase 14 U/L (0-32); Blood Urea Nitrogen 15 mg/dL (6-20); Calcium 9.4 mg/dL (8.5-10.5); Carbon Dioxide 24 mmol/L (22-29); Chloride 94 mmol/L (98-107); Glucose 114 mg/dL (65-115); Lipase 28 U/L (13-60); Osmolality Calculated 268 mOsm/kg (285-295); Potassium 4.4 mmol/L (3.5-5.1); Sodium 128 mmol/L (136-145); Total Bilirubin 0.2 mg/dL (0.15-1.2); Total Protein 7.2 g/dL (6.6-8.7)
[2023-08-26] MEDS: ondansetron 2 mg/ML SDV 2 mL 4 MG IVP (14:43)
[2023-08-26] MEDS: sodium chloride 0.9% 1,000 ML 999 ML IV (14:43)
[2023-08-26] MEDS: ketorolac 30 mg/mL INJ IVP (14:43)
--- NOTE | 2023-08-26 14:46 | CTR_ITS ---
PROCEDURE INFORMATION: Exam: CT Abdomen And Pelvis Without Contrast Exam date and time: 08/26/2023 3:08 PM Age: 43 years old Clinical indication: Abdominal pain; Other: Johnnie flank; Prior surgery; Surgery date: 6+ months; Surgery type: Gb; Additional info: Bilat flank pain TECHNIQUE: Imaging protocol: Computed tomography of the abdomen and pelvis without contrast. REPORTING DATA: Count of CT and Cardiac NM exams in prior 12 months: This patient has received 2 known CTs and 0 known cardiac nuclear medicine studies in the 12 months prior to the current study. COMPARISON: CT abdomen pelvis wo con [id number] 06/05/2022 12:58 PM RADIATION DOSE METRICS: Total DLP (mGy-cm): 1362.64 FINDINGS: Lungs: Lung bases are clear. Liver: Liver is mildly enlarged, unchanged. No masses detected. Gallbladder and bile ducts: Normal. No calcified stones. No ductal dilation. Pancreas: Unremarkable. Main pancreatic duct is not significantly dilated. Spleen: Normal. No splenomegaly. 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 Right adrenal gland is unremarkable. Kidneys and ureters: Kidneys are unremarkable. No calculi or hydronephrosis detected. Stomach and bowel: There are multiple diverticuli throughout the distal portion of the large bowel without evidence of diverticulitis. Appendix: No evidence of acute appendicitis. Intraperitoneal space: Unremarkable. No free air. No significant fluid collection. Vasculature: Scattered atherosclerotic changes of the abdominal aorta and iliac vessels. No aortic aneurysm. Lymph nodes: Unremarkable. No enlarged lymph nodes. Urinary bladder: Unremarkable as visualized. Reproductive: Vaginal tampon present. Uterus is unremarkable. Bones/joints: Unremarkable. No acute fracture. Soft tissues: Unremarkable. CT/CT kidney stone [id number] IMPRESSION: 1. No acute findings within the abdomen or pelvis. 2. Additional nonemergent findings as above.
[2023-08-26 14:47] VITALS: BP 140/91; PULSE 80; RESP 16; O2SAT 98
[2023-08-26 15:25] LABS: Add Urine Culture? No; Add Urine Microscopic? YES; Bacteria Urine TRACE /hpf; Bilirubin Urine 1+ (Negative); Blood Urine Neg (Negative); Glucose Urine UA Norm (Normal); Ketones Urine Negative (Negative); Leukocyte Esterase Urine Negative (Negative); Mucus Urine 2+ /hpf; Nitrate Urine Negative (Negative); Protein Urine Trace (Negative); RBC Urine 0-4 /hpf (0-2); Specific Gravity, Urine 1.025 (1.005-1.030); Squamous Epithelial Cell Urine 0-4 /hpf (0-5); Urine Appearance Clear (CLEAR); Urine Color Yellow (Yellow); Urobilinogen Urine 1 mg/dL (Negative); WBC Urine 0-4 /hpf (0-5); pH Urine 5 (5-7)
[2023-08-26 15:37] VITALS: BP 128/67; PULSE 90; RESP 18; O2SAT 100
[2023-08-26] MEDS: metoclopramide 5 mg/mL SDV 2 mL 10 MG IVP (16:31)
[2023-08-26 16:32] VITALS: RESP 20
[2023-08-26] MEDS: morphine 4 mg/mL SDV 1 mL IVP (16:32)
[2023-08-26 17:55] VITALS: BP 137/92; PULSE 88; RESP 18; O2SAT 96
== END 2023-08-26 17:57 | disposition home or self-care (01) ==
PROVIDERS: Emergency Provider Emergency Medicine; PCP Family Medicine
DX: N12 Tubulo-interstitial nephritis, not specified as acute or chronic (principal); Z87.891 Personal history of nicotine dependence; M32.9 Systemic lupus erythematosus, unspecified; J44.9 Chronic obstructive pulmonary disease, unspecified; E78.2 Mixed hyperlipidemia; E11.9 Type 2 diabetes mellitus without complications; I10 Essential (primary) hypertension
CPT/HCPCS: 36415; 74176; 80053; 81001; 83690; 85025; 96361; 96374; 96375; 99285; J1885; J2270; J2405; J2765; J7030

== ENCOUNTER 2023-08-31 09:38 | Outpatient (CLI) | payer OTHER, SELFPAY ==
[2023-08-31 10:35] LABS: Bilirubin Urine Neg (Negative); Blood Urine Neg (Negative); Glucose Urine UA Norm (Normal); Ketones Urine Negative (Negative); Leukocyte Esterase Urine Negative (Negative); Nitrate Urine Negative (Negative); Protein Urine Neg (Negative); Urine Appearance Clear (CLEAR); Urine Color Light yellow (Yellow); Urobilinogen Urine Norm (Negative); pH Urine 6 (5-7)
[2023-08-31 10:42] LABS: Blood Urea Nitrogen 11 mg/dL (6-20)
[2023-08-31 10:53] LABS: Urine Creatinine 42 mg/dL (28-217)
[2023-08-31 11:06] LABS: Add Urine Culture? No; Squamous Epithelial Cell Urine 0-4 /hpf (0-5); Urine Protein Random 5 mg/dL; WBC Urine 0-4 /hpf (0-5)
== END 2023-08-31 09:39 | disposition home or self-care (01) ==
LOC: LAB 09:39
PROVIDERS: PCP Family Medicine; Visit Provider Internal Medicine Rheumatology
DX: N39.0 Urinary tract infection, site not specified (principal); M32.9 Systemic lupus erythematosus, unspecified
CPT/HCPCS: 81001; 82565; 82570; 84156; 84520; 87086

== ENCOUNTER 2023-09-20 07:33 | Emergency (ER) | payer OTHER, SELFPAY ==
[2023-09-20 07:45] VITALS: BP 177/129; PULSE 96; RESP 18; TEMP 36.6; O2SAT 99; BMI 47.0
--- NOTE | 2023-09-20 07:49 | XR_ITS ---
WS: [id number] XR ankle LT min 3V* [id number] REASON FOR EXAM: trauma FINDINGS: There is soft tissue swelling over the medial malleolus with bony fragments minimally displaced from the malleolar apex. Fragments and donor site appear well-corticated however an acute avulsion superim posed on an old medial collateral ligament injury cannot be excluded. IMPRESSION: Medial malleolar abnormality as above.
--- NOTE | 2023-09-20 09:12 | W.ED.EXTPRO ---
HPI - Extremity Problem General: Chief complaint: Extremity Injury, Lower Stated complaint: fell, left ankle pain Time Seen by Provider: 09/20/23 07:48 Source: patient Mode of arrival: wheelchair History of Present Illness: 43-year-old female presents emergency room with complaint of left ankle pain. She slipped and fell on the ice twisting her ankle yesterday. She struck her right elbow as well in her right hip but she states while those are somewhat sore she has not had any real pain from those areas. She thinks she may have bumped her head she has not had any vomiting or diarrhea or vision changes. Her only significant discomfort at this point is the swelling in the left ankle and discomfort with any kind of attempt at weightbearing. No previous injury to the ankle MD Complaint: joint swelling and joint pain Onset (ago): day(s) (1) Pain Consistency: constant Location: left (Ankle) Quality: sharp Radiation: distal Relieving factors: nothing Exacerbating factors: nothing Associated symptoms: Deny arthralgias, chest pain, fever(s), myalgias, rash or short of breath Review of Systems Const: Denies: fever(s) Card: Denies: chest pain Resp: Denies: dyspnea GI: Denies: abdominal pain : Denies: dysuria, urinary frequency or urinary urgency Musc: Denies: neck pain or back pain Skin/Breast: Denies: rash PFSH ED PFSH: Medical History Lung injury associated with vaping Contact dermatitis SLE (systemic lupus erythematosus related syndrome) Hypothyroidism COPD (chronic obstructive pulmonary disease) Leukocytosis Rosacea Positive double stranded DNA antibody test Labral tear of left hip joint KI (obstructive sleep apnea) Morbid obesity Bipolar 1 disorder PTSD (post-traumatic stress disorder) Hyponatremia Chronic urticaria Insomnia Mild intermittent asthma Allergic rhinitis GERD (gastroesophageal reflux disease) Shingles 4th occurrence Hyperlipemia, mixed Helicobacter pylori gastritis Mandibular fracture Diabetes mellitus Type 2 Depression Hypertension Surgical History History of mandibular surgery For mandibular fracture H/O esophagogastroduodenoscopy (09/02/21) H/O thyroidectomy S/P cholecystectomy S/P tonsillectomy and adenoidectomy S/P breast lumpectomy Right breast lumpectomy for benign disease Previous section Family History Father Hypertension Cancer testicular Cardiac abnormality Mother CHF (congestive heart failure) COPD (chronic obstructive pulmonary disease) Diabetes Cancer ovarian and uterine Family/Other Cancer Maternal aunt- HR2 breast Other CAD (coronary artery disease) Family history of premature coronary artery disease Hyperlipidemia Lung disease Psychiatric illness Rheumatoid arthritis Stroke Denies family history of Lupus Clotting disorder Dementia Chronic kidney disease (CKD) Anesthesia complication Bleeding disorder Social History Smoking and tobacco/nicotine status: former use of tobacco/nicotine Quit status (tobacco/nicotine): has quit using Year quit tobacco: July Former quit date comment: Hx of 2 ppd X 25 years, started at age 16 yr. 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 [employer] Sexually active: Yes Do you think of yourself as: Straight/Heterosexual Current gender identity: Female Balbina/Catholic: Gnosticist Special balbina needs: No Agree to transfusion: Yes Physical Exam Const: COMMON NORMALS: no acute distress GENERAL APPEARANCE: cooperative and comfortable ORIENTATION/CONSCIOUSNESS: Yes awake, Yes oriented to person, Yes oriented to place and Yes oriented to time HENMT: COMMON NORMALS: normocephalic, atraumatic and hearing grossly normal bilaterally HEAD & SCALP: normocephalic and atraumatic Extremity: OTHER: Examination left ankle dorsalis pedis posterior tibialis pulses intact. Moderate swelling no ecchymosis no deformity Neuro: SENSORIUM/ORIENTATION: Yes oriented to person, Yes oriented to place and Yes oriented to time Course Vital Signs: Vital signs: Vital Signs Temperature 97.9 F 09/20/23 07:45 Pulse Rate 96 09/20/23 07:45 Respiratory Rate 18 09/20/23 07:45 Blood Pressure 177/129 09/20/23 07:45 Pulse Oximetry 99 09/20/23 07:45 Oxygen Delivery Me thod Room Air 09/20/23 07:45 MDM - Extremity (Nontraumatic) Medical Decision Making Patient has significant amount of swelling on the lateral portion of the left ankle but there is no obvious deformity x-ray shows questionable old small avulsion fractures does not appear to be new. Because of patient's discomfort we will place her in a posterior splint nonweightbearing on crutches pain medications and have her follow-up with podiatry case management to make arrangements Medical Records I reviewed the patient's medical records. Lab Data I reviewed the patient's lab results. All radiology interpretation(s) finalized by discharge Discharge Plan Discharge Patient Disposition: Home Clinical Impression: Ankle sprain Condition: Stable Prescriptions: New tramadol 50 mg tablet 50 mg PO Q6H PRN (Reason: pain) Qty: 10 0RF No Action trazodone 100 mg tablet 150 mg PO .hs docusate sodium [Colace] 100 mg capsule 200 mg PO DAILY albuterol sulfate [Ventolin HFA] 90 mcg/actuation HFA aerosol inhaler 2 puff INHALATION Q4H PRN (Reason: Shortness Of Breath) Qty: 8.5 3RF Trelegy Ellipta 100-62.5-25 mcg blister with device 1 inh inhalation DAILY Qty: 60 6RF folic acid 1 mg tablet 1 mg PO DAILY Qty: 90 1RF (DME) insulin syringes (disposable) 1 mL syringe See Rx Instructions .ROUTE .MEDSUPPLY Qty: 25 1RF Rx Instructions: As directed (DME) Polar ice box for hip pain See Rx Instructions .Route .MEDSUPPLY Qty: 1 0RF Rx Instructions: As directed atorvastatin 20 mg tablet 20 mg PO DAILY Qty: 90 3RF epinephrine [EpiPen 2-Edward] 0.3 mg/0.3 mL auto-injector 0.3 mg IM Q15M PRN (Reason: anaphylaxis) Qty: 2 0RF Rx Instructions: for 2 doses lisinopril 40 mg tablet 40 mg PO BEDTIME Qty: 90 2RF montelukast [Singulair] 10 mg tablet 10 mg PO DAILY Qty: 90 3RF pantoprazole [Protonix] 40 mg tablet,delayed release (DR/EC) 40 mg PO BID Qty: 180 2RF hydroxychloroquine 200 mg tablet 200 mg PO BID Qty: 180 1RF methotrexate sodium 25 mg/mL solution 25 mg SUBCUT .Q7days Qty: 10 1RF prednisone 10 mg tablet See Rx Instructions PO .COMPLEX PRN (Reason: joint pain) Qty: 30 1RF Rx Instructions: take 1 tab daily for 3-7 days prn joint pain flare PO PRN; oxcarbazepine [Trileptal] 600 mg tablet See Rx Instructions PO .COMPLEX Rx Instructions: Take one in am and 2 in pm orally; albuterol sulfate 2.5 mg /3 mL (0.083 %) solution for nebulization 2.5 mg inhalation Q4H PRN (Reason: Shortness Of Breath) Qty: 90 3RF ondansetron 4 mg tablet,disintegrating See Rx Instructions .ROUTE .COMPLEX Qty: 60 1RF Dose Instruction: DISSOLVE ONE TABLET BY MOUTH EVERY 6 HOURS NEEDED FOR NAUSEA AND VOMITING Rx Instructions: DISSOLVE ONE TABLET BY MOUTH EVERY 6 HOURS NEEDED FOR NAUSEA AND VOMITING gabapentin 600 mg tablet See Rx Instructions .ROUTE .COMPLEX Qty: 180 0RF Dose Instruction: TAKE 1 TABLET BY MOUTH TWICE DAILY Rx Instructions: TAKE 1 TABLET BY MOUTH TWICE DAILY levothyroxine 200 mcg tablet 200 mcg PO DAILY Qty: 90 0RF Rx Instructions: 200mcg tue-tue, 100mcg on tuesday Benlysta 200 mg/mL syringe 200 mg SUBCUT .Q7days 84 Days Qty: 12 1RF acetaminophen [Tylenol Extra Strength] 500 mg Tablet 1,000 mg PO Q6H PRN (Reason: Pain) diphenhydramine HCl [Benadryl Allergy] 25 mg Tablet 25 - 50 mg PO PRN azelastine 205.5 mcg (0.15 %) spray,non-aerosol 2 spray INTRANASAL BID PRN (Reason: alternates with flonase every other day) ziprasidone HCl 80 mg Capsule 80 mg PO BID ipratropium-albuterol 0.5 mg-3 mg(2.5 mg base)/3 mL solution for nebulization 3 ml inhalation Q8H PRN (Reason: wheezing) Qty: 90 0RF buspirone 30 mg tablet 30 mg PO BID dextroamphetamine-amphetamine 30 mg capsule,extended release 24hr 30 mg PO QAM Rexulti 2 mg tablet 2 mg PO DAILY furosemide 20 mg tablet 20 mg PO DAILY PRN (Reason: Edema) ondansetron HCl 4 mg tablet 4 mg PO Q6H PRN (Reason: nausea and vomiting) Qty: 14 0RF Pyridium 100 mg tablet 100 mg PO Q8H Qty: 6 0RF Discharge Orders: Discharge ED (Routine); Ordered 09/20/23 Ordered By: David Wallace Referrals: Elan Kuhn MD [Primary Care Provider] - Discharge Diet: Usual diet Discharge Activity: Increase activity as tolerated Patient Instructions: Opioid Safety, Pain Management Activity Restrictions/Additional Instructions: Thank you for choosing [facility] for your healthcare needs today. Please realize this is an emergency room and that we are providing you with a medical screening exam and this may not be complete and all inclusive of all the testing and or work up that you may need to determine your ailment or severity of your illness. It is very important that you follow up as instructed or that you return to the Emergency Department should you have concerns or if your condition changes or worsens in any way. You were seen for left ankle sprain. There were no acute fractures on the x-ray. Because of the discomfort will place you in a splint and recommend crutches. Case management make a follow-up appointment with podiatry. Coding Level of Care Code ED [employer]
--- NOTE | 2023-09-21 07:52 | DCPLANNER ---
Message sent to Podiatry for ankle sprain follow up-
== END 2023-09-20 10:04 | disposition home or self-care (01) ==
PROVIDERS: Emergency Provider Family Medicine; PCP Family Medicine
DX: S93.402A Sprain of unspecified ligament of left ankle, initial encounter (principal); W00.0XXA Fall on same level due to ice and snow, initial encounter; M32.9 Systemic lupus erythematosus, unspecified; J44.9 Chronic obstructive pulmonary disease, unspecified; E78.2 Mixed hyperlipidemia; E11.9 Type 2 diabetes mellitus without complications; I10 Essential (primary) hypertension; Z87.891 Personal history of nicotine dependence
CPT/HCPCS: 29515; 73610; 99283

== ENCOUNTER 2023-09-22 15:54 | Outpatient (CLI) | payer OTHER, SELFPAY | END 2023-09-22 15:55 | disposition home or self-care (01) | LOC: SPT 15:54 | PROVIDERS: PCP Family Medicine; Visit Provider Podiatrist Foot & Ankle Surgery | DX: Z46.89 Encounter for fitting and adjustment of other specified devices (principal); S93.409D Sprain of unspecified ligament of unspecified ankle, subsequent encounter; X58.XXXD Exposure to other specified factors, subsequent encounter | CPT/HCPCS: 97760; L4361 ==

== ENCOUNTER 2023-10-10 14:26 | Outpatient (CLI) | payer OTHER, SELFPAY ==
--- NOTE | 2023-10-10 14:30 | MR_ITS ---
WS: [id number] EXAMINATION: MR ankle LT wo con* [id number] ORDER DATE: 10/10/2023 2:48 PM COMPARISON: Radiograph 09/20/2023 HISTORY: Left ankle injury CONTRAST: None. TECHNIQUE: Axial proton density fat sat, axial T1, sagittal proton density, sagittal STIR, coronal T2 fat sat, and coronal T1 sequences performed. After contrast, axial T1 fat sat, coronal T1 fat sat, and sagittal T1 fat sat were performed. FINDINGS: Chronic appearing well-corticated fracture fragments about the medial malleolus. No bony edema. Diffu se soft tissue edema about the medial and lateral malleolus and lower leg soft tissues. Distal fibula is normal in appearance. Normal lateral malleolus. Normal plantar fascia. Increased longitudinal signal abnormality involving the ventral fibers of the Achilles consistent with a tiny interstitial tear. Chronic split tear involving the peroneal brevis. Normal peroneal longus. Normal extensor and flexor compartment tendons. Fluid and edema involving the ATF which is poorly visualized suspicious for lig amentous injury. Small amount of fluid and edema in the anterolateral gutter. PTF appears intact. Small ankle effusion. Normal bone marrow signal in the calcaneus. Base of the fifth metatarsal is nor mal in appearance. Tiny amount of degenerative edema or contusion in the cuboid. Normal cuneiforms an d navicular. Normal talonavicular articulation. Tiny amount of edema involving the posterior talar do me likely due to contusion. Os trigonum. Small mount of fluid and edema along the posterior talar fac et. IMPRESSION: 1. Well-corticated ossicles about the medial malleolus. No bony edema. 2. Fluid and edema involving the course of the ATF with poor visualization compatible with ligamento us injury. PTF appears intact. 3. Chronic appearing split tear of the peroneal brevis. 4. Small amount of fluid and edema involving the cuboid and posterior talar dome likely due to contu toyin. 5. Diffuse soft tissue edema about the ankle with small ankle effusion. 6. Deltoid ligament appears grossly intact. 7. Increased longitudinal signal abnormality involving the ventral fibers of the Achilles consistent with a tiny interstitial tear.
== END 2023-10-10 14:27 | disposition home or self-care (01) ==
LOC: RAD 14:26
PROVIDERS: PCP Family Medicine; Visit Provider Podiatrist Foot & Ankle Surgery
DX: M84.372A Stress fracture, left ankle, initial encounter for fracture (principal); X58.XXXA Exposure to other specified factors, initial encounter
CPT/HCPCS: 73721

== ENCOUNTER → 2023-10-18 16:20 | Outpatient (BNVA) | payer OTHER, SELFPAY | PROVIDERS: PCP Family Medicine; Visit Provider Emergency Medicine | DX: R05.9 Cough, unspecified (principal); H66.001 Acute suppurative otitis media without spontaneous rupture of ear drum, right ear | CPT/HCPCS: 87400 ==

== ENCOUNTER 2023-10-22 14:21 | Emergency (ER) | payer OTHER, SELFPAY ==
[2023-10-22 14:27] VITALS: BP 168/111; PULSE 96; RESP 17; TEMP 36.6; O2SAT 97; BMI 51.7
--- NOTE | 2023-10-22 15:46 | XRR_ITS ---
PROCEDURE INFORMATION: Exam: XR Chest Exam date and time: 10/22/2023 4:15 PM Age: 43 years old Clinical indication: Cough and dyspnea; Patient HX: Cough; SOB; Fever; Dyspnea; Additional info: Cough dyspnea TECHNIQUE: Imaging protocol: Radiologic exam of the chest. Views: 1 view. COMPARISON: CT chest con [id number] 04/18/2023 4:28 PM FINDINGS: Lungs: Peribronchial wall thickening. No consolidation. Pleural spaces: Unremarkable. No pleural effusion. No pneumothorax. Heart/Mediastinum: Unremarkable. No cardiomegaly. Bones/joints: Unremarkable. XR/XR chest 1V portable [id number] IMPRESSION: Peribronchial wall thickening consistent with bronchitis.
--- NOTE | 2023-10-22 15:56 | ED_ITS ---
HPI - SOB/Dyspnea 2 General: Chief Complaint: Shortness of Breath/Dyspnea Stated Complaint: SOB , Cough, fever Time Seen by Provider: 10/22/23 15:29 History of Present Illness: HPI Narrative: Patient presents to the ER with complaints of shortness of breath losing her voice. Patient was seen at the urgent care twice and put on 2 different antibiotics and prednisone and inhaler has not getting any better possibly be getting worse. Patient says she has had fever and chills. Patient says she has been tested for COVID and influenza and they were both negative however she is also says everyone currently has influenza A in her household. Review of Systems 2 General: Reports: 10 or more systems reviewed and unremarkable except in HPI and below PFSH ED 2 PFSH: Medical History Lung injury associated with vaping Contact dermatitis SLE (systemic lupus erythematosus related syndrome) Hypothyroidism COPD (chronic obstructive pulmonary disease) Leukocytosis Rosacea Positive double stranded DNA antibody test Labral tear of left hip joint KI (obstructive sleep apnea) Morbid obesity Bipolar 1 disorder PTSD (post-traumatic stress disorder) Hyponatremia Chronic urticaria Insomnia Mild intermittent asthma Allergic rhinitis GERD (gastroesophageal reflux disease) Shingles 4th occurrence Hyperlipemia, mixed Helicobacter pylori gastritis Mandibular fracture Diabetes mellitus Type 2 Depression Hypertension Surgical History History of mandibular surgery For mandibular fracture H/O esophagogastroduodenoscopy (09/02/21) H/O thyroidectomy S/P cholecystectomy S/P tonsillectomy and adenoidectomy S/P breast lumpectomy Right breast lumpectomy for benign disease Previous section Family History Father Hypertension Cancer testicular Cardiac abnormality Mother Congestive heart failure (CHF) COPD (chronic obstructive pulmonary disease) Diabetes Cancer ovarian and uterine Family/Other Cancer Maternal aunt- HR2 breast Other CAD (coronary artery disease) Family history of premature coronary artery disease Hyperlipidemia Lung disease Psychiatric illness Rheumatoid arthritis Stroke Denies family history of Lupus Clotting disorder Dementia Chronic kidney disease (CKD) Anesthesia complication Bleeding disorder Social History Smoking and tobacco/nicotine status: former use of tobacco/nicotine Quit status (tobacco/nicotine): has quit using Year quit tobacco: July Former quit date comment: Hx of 2 ppd X 25 years, started at age 16 yr. Alcohol intake: former Substance/Drug Use: never Adopted: No Caregiver/support person: No Lives independently: Yes Household members: spouse and family Housing: House Marital status: Number of children: 2 Number of grandchildren: 1 Highest education level completed: Some College, No Degree service: No Current occupational status: employed Current occupation: [employer] Sexually active: Yes Do you think of yourself as: Straight/Heterosexual Current gender identity: Female Bablina/Congregational: Episcopal Special balbina needs: No Agree to transfusion: Yes Physical Exam 2 Const: COMMON NORMALS: no acute distress, average body habitus, patient oriented x3, no limitations, healthy appearing, alert and well nourished HENMT: COMMON NORMALS: normocephalic, atraumatic, hearing grossly normal bilaterally, external ears normal, Normal external nose present, moist oral mucous membranes and oropharynx normal HEAD & SCALP: normocephalic and atraumatic NOSE: Normal external nose present EXTERNAL EAR: Yes external ears normal Neck/C-Spine: COMMON NORMALS: full ROM, no lymphadenopathy, supple, no meningeal signs, no JVD and Thyroid normal THYROID: Thyroid normal Chest: COMMONS NORMALS: normal inspection of the chest and normal palpation of entire chest wall Resp: COMMON NORMALS: normal respiratory effort, No retractions, No use of accessory muscles and clear to auscultation bilaterally AUSCULTATION: clear to auscultation bilaterally Cardio: COMMON NORMALS: no JVD, regular rate, regular rhythm, S1 normal heart sound present, S2 normal heart sound present, No gallops present (Cardio), No clicks present (Cardio), No murmurs present (Cardio) and No rub (Cardio) R ATE: regular rate RHYTHM: regular rhythm HEART SOUNDS: S1 normal heart sound present and S2 normal heart sound present GI: COMMON NORMALS: Normal to inspection, nondistended, normoactive bowel sounds present, Soft to palpation, non-tender, No hepatosplenomegaly present and no masses PALPATION: Yes Soft to palpation and Yes No hepatosplenomegaly present Neuro: COMMON NORMALS: patient oriented x3 SENSORIUM/ORIENTATION: Yes alert MENINGEAL SIGNS: Yes no meningeal signs Course 2 Vital Signs: Vital signs: Vital Signs Temperature 97.9 F 10/22/23 14:27 Pulse Rate 83 10/22/23 18:00 Respiratory Rate 18 10/22/23 18:00 Blood Pressure 183/90 10/22/23 18:00 Pulse Oximetry 95 10/22/23 18:00 Oxygen Delivery Me thod Room Air 10/22/23 14:27 MDM - SOB/Dyspnea Medical Decision Making Your workup in ER showed your chest x-ray is consistent with bronchitis and you have influenza A and adenovirus. Please follow-up with your family practice physician within next 7 to 10 days otherwise supportive treatment as needed. Differential Diagnosis Unlikely acute exacerbation of chronic obstructive airways disease, congestive heart failure, community acquired pneumonia, asthma with exacerbation or pulmonary embolism Medical Records I reviewed the patient's medical records. Lab Data I reviewed the patient's lab results. 10/22/23 15:55 10/22/23 15:55 Labs/Radiology: Radiology Impressions Chest X-Ray 10/22/23 15:46 IMPRESSION: Peribronchial wall thickening consistent with bronchitis. Laboratory Results WBC 7.51 10^3/uL (3.29-11.43) 10/22/23 15:55 RBC 4.22 10^6/uL (3.85-5.65) 10/22/23 15:55 Hgb 12.00 g/dL (11.27-16.99) 10/22/23 15:55 Hct 35.6 % (36-47) L 10/22/23 15:55 MCV 84.4 fl (85-98) L 10/22/23 15:55 MCH 28.4 pg (27-33) 10/22/23 15:55 MCHC 33.7 g/dL (30-55) 10/22/23 15:55 RDW 13.9 % (12.1-15.1) 10/22/23 15:55 Plt Count 305 10^3/cmm (157-399) 10/22/23 15:55 MPV 9.4 fL (7.4-10.4) 10/22/23 15:55 Neut % (Auto) 61.6 % 10/22/23 15:55 Lymph % (Auto) 26.4 % 10/22/23 15:55 Logan % (Auto) 8.5 % 10/22/23 15:55 Eos % (Auto) 1.5 % 10/22/23 15:55 Baso % (Auto) 0.9 % 10/22/23 15:55 Neut # (Auto) 4.63 10^3/uL (1.8-7.7) 10/22/23 15:55 Lymph # (Auto) 2.0 10^3/uL (0.8-4.8) 10/22/23 15:55 Logan # (Auto) 0.6 10^3/uL (0.2-0.9) 10/22/23 15:55 Eos # (Auto) 0.1 10^3/uL (0.0-0.8) 10/22/23 15:55 Baso # (Auto) 0.1 10^3/uL (0.0-0.1) 10/22/23 15:55 Nucleated RBC % (auto) 0 % 10/22/23 15:55 Nucleated RBCs # 0.0 /100WBC 10/22/23 15:55 Sodium 136 mmol/L (136-145) 10/22/23 15:55 Potassium 4.0 mmol/L (3.5-5.1) 10/22/23 15:55 Chloride 98 mmol/L (98-107) 10/22/23 15:55 Carbon Dioxide 24 mmol/L (22-29) 10/22/23 15:55 Anion Gap 18.0 (5-19) 10/22/23 15:55 BUN 11 mg/dL (6-20) 10/22/23 15:55 Creatinine 0.6 mg/dL (0.5-0.9) 10/22/23 15:55 GFR Calculation 110.2 mL/min (90-130) 10/22/23 15:55 Glucose 166 mg/dL (65-115) H 10/22/23 15:55 Calculated Osmolality 285 mOsm/kg (285-295) 10/22/23 15:55 Calcium 8.8 mg/dL (8.5-10.5) 10/22/23 15:55 Total Bilirubin 0.2 mg/dL (0.15-1.2) 10/22/23 15:55 AST 17 U/L (0-32) 10/22/23 15:55 ALT 30 U/L (0-33) 10/22/23 15:55 Alkaline Phosphatase 102 U/L (35-105) 10/22/23 15:55 Total Protein 7.6 g/dL (6.6-8.7) 10/22/23 15:55 Albumin 4.4 g/dL (3.5-5.2) 10/22/23 15:55 Globulin 3.2 g/dL (1.3-4.6) 10/22/23 15:55 Adenovirus (PCR) Detected (NOT DETECT) A 10/22/23 15:55 C. pneumoniae DNA (PCR) Not detected (NOT DETECT) 10/22/23 15:55 Coronavirus 229E (PCR) Not detected (NOT DETECT) 10/22/23 15:55 Human Metapneumovir PCR Not detected (NOT DETECT) 10/22/23 15:55 Influenza A (H1) PCR Not detected (NOT DETECT) 10/22/23 15:55 Influ A (H1/09) PCR Not detected (NOT DETECT) 10/22/23 15:55 Influenza A (H3) PCR Detected (NOT DETECT) A 10/22/23 15:55 Influenza Type A (PCR) Detected (NOT DETECT) A 10/22/23 15:55 Influenza Type B (PCR) Not detected (NOT DETECT) 10/22/23 15:55 M. pneumoniae (PCR) Not detected (NOT DETECT) 10/22/23 15:55 Parainfluenza 1 (PCR) Not detected (NOT DETECT) 10/22/23 15:55 Parainfluenza 2 (PCR) Not detected (NOT DETECT) 10/22/23 15:55 Parainfluenza 3 (PCR) Not detected (NOT DETECT) 10/22/23 15:55 Parainfluenza 4 (PCR) Not detected (NOT DETECT) 10/22/23 15:55 RSV Type A (PCR) Not detected (NOT DETECT) 10/22/23 15:55 RSV Type B (PCR) Not detected (NOT DETECT) 10/22/23 15:55 Entero/Rhino (PCR) Not detected (NOT DETECT) 10/22/23 15:55 SARS-CoV-2 (PCR) Not detected (NOT DETECT) 10/22/23 15:55 All radiology interpretation(s) finalized by discharge Discharge Plan Discharge Patient Disposition: Home Clinical Impression: Influenza A, Adenovirus infection Condition: Stable Prescriptions: No Action trazodone 100 mg tablet 150 mg PO .hs (DME) CAM boot See Rx Instructions .Route .MEDSUPPLY Qty: 1 0RF Rx Instructions: As directed docusate sodium [Colace] 100 mg capsule 200 mg PO DAILY albuterol sulfate [Ventolin HFA] 90 mcg/actuation HFA aerosol inhaler 2 puff INHALATION Q4H PRN (Reason: Shortness Of Breath) Qty: 8.5 3RF Trelegy Ellipta 100-62.5-25 mcg blister with device 1 inh inhalation DAILY Qty: 60 6RF folic acid 1 mg tablet 1 mg PO DAILY Qty: 90 1RF (DME) insulin syringes (disposable) 1 mL syringe See Rx Instructions .ROUTE .MEDSUPPLY Qty: 25 1RF Rx Instructions: As directed (DME) Polar ice box for hip pain See Rx Instructions .Route .MEDSUPPLY Qty: 1 0RF Rx Instructions: As directed atorvastatin 20 mg tablet 20 mg PO DAILY Qty: 90 3RF epinephrine [EpiPen 2-Edward] 0.3 mg/0.3 mL auto-injector 0.3 mg IM Q15M PRN (Reason: anaphylaxis) Qty: 2 0RF Rx Instructions: for 2 doses lisinopril 40 mg tablet 40 mg PO BEDTIME Qty: 90 2RF montelukast [Singulair] 10 mg tablet 10 mg PO DAILY Qty: 90 3RF pantoprazole [Protonix] 40 mg tablet,delayed release (DR/EC) 40 mg PO BID Qty: 180 2RF hydroxychloroquine 200 mg tablet 200 mg PO BID Qty: 180 1RF methotrexate sodium 25 mg/mL solution 25 mg SUBCUT .Q7days Qty: 10 1RF prednisone 10 mg tablet See Rx Instructions PO .COMPLEX PRN (Reason: joint pain) Qty: 30 1RF Rx Instructions: take 1 tab daily for 3-7 days prn joint pain flare PO PRN; oxcarbazepine [Trileptal] 600 mg tablet See Rx Instructions PO .COMPLEX Rx Instructions: Take one in am and 2 in pm orally; doxycycline hyclate 100 mg capsule PO azithromycin [Zithromax] 500 mg tablet 500 mg PO DAILY 5 Days Qty: 5 0RF albuterol sulfate 2.5 mg /3 mL (0.083 %) solution for nebulization 2.5 mg inhalation Q4H PRN (Reason: Shortness Of Breath) Qty: 90 3RF ondansetron 4 mg tablet,disintegrating See Rx Instructions .ROUTE .COMPLEX Qty: 60 1RF Dose Instruction: DISSOLVE ONE TABLET BY MOUTH EVERY 6 HOURS NEEDED FOR NAUSEA AND VOMITING Rx Instructions: DISSOLVE ONE TABLET BY MOUTH EVERY 6 HOURS NEEDED FOR NAUSEA AND VOMITING gabapentin 600 mg tablet See Rx Instructions .ROUTE .COMPLEX Qty: 180 0RF Dose Instruction: TAKE 1 TABLET BY MOUTH TWICE DAILY Rx Instructions: TAKE 1 TABLET BY MOUTH TWICE DAILY levothyroxine 200 mcg tablet 200 mcg PO DAILY Qty: 90 0RF Rx Instructions: 200mcg tue-tue, 100mcg on tuesday furosemide 20 mg tablet See Rx Instructions .ROUTE .COMPLEX Qty: 90 1RF Dose Instruction: TAKE 1 TABLET BY MOUTH EVERY DAY NEEDED FOR edema Rx Instructions: TAKE 1 TABLET BY MOUTH EVERY DAY NEEDED FOR edema Benlysta 200 mg/mL syringe 200 mg SUBCUT .Q7days 84 Days Qty: 12 1RF acetaminophen [Tylenol Extra Strength] 500 mg Tablet 1,000 mg PO Q6H PRN (Reason: Pain) diphenhydramine HCl [Benadryl Allergy] 25 mg Tablet 25 - 50 mg PO PRN azelastine 205.5 mcg (0.15 %) spray,non-aerosol 2 spray INTRANASAL BID PRN (Reason: alternates with flonase every other day) tramadol 50 mg tablet 50 mg PO Q6H PRN (Reason: pain) Qty: 10 0RF ziprasidone HCl 80 mg Capsule 80 mg PO BID ipratropium-albuterol 0.5 mg-3 mg(2.5 mg base)/3 mL solution for nebulization 3 ml inhalation Q8H PRN (Reason: wheezing) Qty: 90 0RF buspirone 30 mg tablet 30 mg PO BID dextroamphetamine-amphetamine 30 mg capsule,extended release 24hr 30 mg PO QAM Rexulti 2 mg tablet 2 mg PO DAILY ondansetron HCl 4 mg tablet 4 mg PO Q6H PRN (Reason: nausea and vomiting) Qty: 14 0RF Pyridium 100 mg tablet 100 mg PO Q8H Qty: 6 0RF Discharge Orders: Discharge ED (Routine); Ordered 10/22/23 Ordered By: Compa Byers Referrals: Elan Kuhn MD [Primary Care Provider] - 1 week Patient Instructions: Influenza (ED) Activity Restrictions/Additional Instructions: Your workup in the ER came back positive for influenza A and adenovirus. There is no definitive treatment for these since they are both viruses other than supportive care. Please follow-up with your family practice physician within the next 7 days for further evaluation and treatment. If your symptoms worsen please return to the ER. Coding Level of Care Code ED Household Appliance [employer] for [employer]
[2023-10-22 16:02] LABS: Basophils # 0.1 10^3/uL (0.0-0.1); Basophils % 0.9 %; Eosinophils # 0.1 10^3/uL (0.0-0.8); Eosinophils % 1.5 %; Hematocrit 35.6 % (36-47); Lymphocytes % 26.4 %; Mean Corpuscular HGB Conc 33.7 g/dL (30-55); Mean Corpuscular Hemoglobin 28.4 pg (27-33); Mean Corpuscular Volume 84.4 fl (85-98); Mean Platelet Volume 9.4 fL (7.4-10.4); Monocytes # 0.6 10^3/uL (0.2-0.9); Monocytes % 8.5 %; Neutrophils # 4.63 10^3/uL (1.8-7.7); Neutrophils % 61.6 %; Nucleated Red Blood Cells % 0 %; Platelet Count 305 10^3/cmm (157-399); Red Blood Count 4.22 10^6/uL (3.85-5.65); Red Cell Distribution Width 13.9 % (12.1-15.1); White Blood Count 7.51 10^3/uL (3.29-11.43)
[2023-10-22 16:22] LABS: Alanine Aminotransferase 30 U/L (0-33); Albumin Level 4.4 g/dL (3.5-5.2); Alkaline Phosphatase 102 U/L (35-105); Aspartate Amino Transferase 17 U/L (0-32); Blood Urea Nitrogen 11 mg/dL (6-20); Calcium 8.8 mg/dL (8.5-10.5); Carbon Dioxide 24 mmol/L (22-29); Chloride 98 mmol/L (98-107); Globulin 3.2 g/dL (1.3-4.6); Glomerular Filtration Rate 110.2 mL/min (90-130); Glucose 166 mg/dL (65-115); Osmolality Calculated 285 mOsm/kg (285-295); Sodium 136 mmol/L (136-145); Total Bilirubin 0.2 mg/dL (0.15-1.2); Total Protein 7.6 g/dL (6.6-8.7)
[2023-10-22 17:45] LABS: Adenovirus Detected (NOT DETECT); Chlamydia Pneumoniae Not Detected (NOT DETECT); Coronavirus 229E,HKU1,NL63,OC4 Not Detected (NOT DETECT); Human Metapneumovirus Not Detected (NOT DETECT); Human Rhinovirus/Enterovirus Not Detected (NOT DETECT); Influenza A Detected (NOT DETECT); Influenza A H1 Not Detected (NOT DETECT); Influenza A H1-2009 Not Detected (NOT DETECT); Influenza A H3 Detected (NOT DETECT); Influenza B Not Detected (NOT DETECT); Mycoplasma Pneumoniae Not Detected (NOT DETECT); Parainfluenza Virus Type 1 Not Detected (NOT DETECT); Parainfluenza Virus Type 2 Not Detected (NOT DETECT); Parainfluenza Virus Type 3 Not Detected (NOT DETECT); Parainfluenza Virus Type 4 Not Detected (NOT DETECT); Respiratory Syncytial Virus A Not Detected (NOT DETECT); Respiratory Syncytial Virus B Not Detected (NOT DETECT); SARS-COV-2 Not Detected (NOT DETECT)
[2023-10-22 18:00] VITALS: BP 183/90; PULSE 83; RESP 18; O2SAT 95
[2023-10-22] MEDS: lisinopril 20 mg Tablet 40 MG PO (18:13)
== END 2023-10-22 18:10 | disposition home or self-care (01) ==
PROVIDERS: Emergency Provider Emergency Medicine; PCP Family Medicine
DX: J10.1 Influenza due to other identified influenza virus with other respiratory manifestations (principal); B34.0 Adenovirus infection, unspecified; Z11.52 Encounter for screening for COVID-19; Z87.891 Personal history of nicotine dependence; M32.9 Systemic lupus erythematosus, unspecified; J44.9 Chronic obstructive pulmonary disease, unspecified; E78.2 Mixed hyperlipidemia; E11.9 Type 2 diabetes mellitus without complications; I10 Essential (primary) hypertension
CPT/HCPCS: 71045; 80053; 85025; 87486; 87581; 87633; 99284

== ENCOUNTER → 2023-10-26 15:08 | Outpatient (BNVA) | payer OTHER, SELFPAY | PROVIDERS: PCP Family Medicine; Visit Provider Internal Medicine Rheumatology | DX: Z79.899 Other long term (current) drug therapy (principal); R76.8 Other specified abnormal immunological findings in serum; M32.9 Systemic lupus erythematosus, unspecified; Z11.59 Encounter for screening for other viral diseases; Z11.1 Encounter for screening for respiratory tuberculosis; Z09 Encounter for follow-up examination after completed treatment for conditions other than malignant neoplasm | CPT/HCPCS: 36415; 83520; 86200; 86431; 86480; 86704; 86803; 87340 ==

== ENCOUNTER → 2023-11-14 14:30 | Outpatient (BNVA) | payer OTHER, SELFPAY | PROVIDERS: PCP Family Medicine; Visit Provider Podiatrist Foot & Ankle Surgery | DX: M84.373A Stress fracture, unspecified ankle, initial encounter for fracture | CPT/HCPCS: 99213 ==

== ENCOUNTER → 2023-11-16 08:06 | Outpatient (BNVA) | payer OTHER, SELFPAY | PROVIDERS: PCP Family Medicine; Visit Provider Internal Medicine | DX: E78.2 Mixed hyperlipidemia; E03.9 Hypothyroidism, unspecified; R53.83 Other fatigue; E27.8 Other specified disorders of adrenal gland; K76.0 Fatty (change of) liver, not elsewhere classified; E11.65 Type 2 diabetes mellitus with hyperglycemia; Z79.890 Hormone replacement therapy; Z79.4 Long term (current) use of insulin | CPT/HCPCS: 36415; 80053; 80061; 82044; 83036; 84439; 84443; 99214 ==

== ENCOUNTER 2023-11-23 12:59 | Outpatient (RCR) | payer OTHER, SELFPAY | END 2023-11-27 23:59 | disposition home or self-care (01) | LOC: SPT 12:59 | PROVIDERS: Visit Provider Podiatrist Foot & Ankle Surgery | DX: S93.402D Sprain of unspecified ligament of left ankle, subsequent encounter (principal); M76.62 Achilles tendinitis, left leg; X58.XXXD Exposure to other specified factors, subsequent encounter | CPT/HCPCS: 97033; 97110; 97162 ==

== ENCOUNTER 2023-11-28 06:00 | Outpatient (RCR) | payer OTHER, MEDICAID, SELFPAY | END 2023-12-20 23:59 | disposition home or self-care (01) | LOC: SPT 06:00 | PROVIDERS: PCP Family Medicine; Visit Provider Podiatrist Foot & Ankle Surgery | DX: S93.402D Sprain of unspecified ligament of left ankle, subsequent encounter (principal); M76.62 Achilles tendinitis, left leg; X58.XXXD Exposure to other specified factors, subsequent encounter | CPT/HCPCS: 97033; 97035; 97110 ==

== ENCOUNTER → 2023-12-06 08:53 | Outpatient (BNVA) | payer OTHER, MEDICAID, SELFPAY | PROVIDERS: Visit Provider Internal Medicine | DX: E11.9 Type 2 diabetes mellitus without complications (principal); E78.2 Mixed hyperlipidemia; E03.9 Hypothyroidism, unspecified; R53.83 Other fatigue; E27.8 Other specified disorders of adrenal gland; K76.0 Fatty (change of) liver, not elsewhere classified; Z79.890 Hormone replacement therapy; Z79.4 Long term (current) use of insulin; Z68.43 Body mass index [BMI] 50.0-59.9, adult; Z79.84 Long term (current) use of oral hypoglycemic drugs | CPT/HCPCS: 99214 ==

== ENCOUNTER → 2023-12-09 07:46 | Outpatient (BNVA) | payer OTHER, MEDICAID, SELFPAY | PROVIDERS: PCP Family Medicine; Visit Provider Podiatrist Foot & Ankle Surgery | DX: M84.372A Stress fracture, left ankle, initial encounter for fracture (principal) | CPT/HCPCS: 99213 ==

== ENCOUNTER → 2023-12-12 09:48 | Outpatient (BNVA) | payer OTHER, MEDICAID, SELFPAY | PROVIDERS: PCP Family Medicine; Visit Provider Family Medicine | DX: R60.0 Localized edema (principal) | CPT/HCPCS: 80053 ==

== ENCOUNTER 2023-12-15 10:00 | Outpatient (CLI) | payer OTHER, MEDICAID, SELFPAY ==
[2023-12-15 10:24] LABS: Basophils # 0.1 10^3/uL (0.0-0.1); Basophils % 1.3 %; Eosinophils # 0.1 10^3/uL (0.0-0.8); Eosinophils % 0.8 %; Hematocrit 37.3 % (36-47); Lymphocytes # 1.6 10^3/uL (0.8-4.8); Lymphocytes % 16.6 %; Mean Corpuscular HGB Conc 33.8 g/dL (30-55); Mean Corpuscular Hemoglobin 27.7 pg (27-33); Mean Platelet Volume 9.5 fL (7.4-10.4); Monocytes # 0.8 10^3/uL (0.2-0.9); Monocytes % 8.2 %; Neutrophils # 6.85 10^3/uL (1.8-7.7); Neutrophils % 72.3 %; Nucleated Red Blood Cells % 0 %; Platelet Count 343 10^3/cmm (157-399); Red Blood Count 4.55 10^6/uL (3.85-5.65); Red Cell Distribution Width 13.6 % (12.1-15.1); White Blood Count 9.49 10^3/uL (3.29-11.43)
[2023-12-15 10:48] LABS: Alanine Aminotransferase 37 U/L (0-33); Albumin Level 4.6 g/dL (3.5-5.2); Alkaline Phosphatase 126 U/L (35-105); Anion Gap 18.1 (5-19); Aspartate Amino Transferase 23 U/L (0-32); Blood Urea Nitrogen 11 mg/dL (6-20); Calcium 9.1 mg/dL (8.5-10.5); Carbon Dioxide 24 mmol/L (22-29); Chloride 90 mmol/L (98-107); Cortisol Random 14.23 ug/dL (2.47-19.5); Free T4 Free Thyroxine 1.51 ng/dL (0.82-1.77); Globulin 3.4 g/dL (1.3-4.6); Glucose 310 mg/dL (65-115); Osmolality Calculated 277 mOsm/kg (285-295); Potassium 4.1 mmol/L (3.5-5.1); Sodium 128 mmol/L (136-145); Thyroid Stimulating Hormone 5.32 uIU/mL (0.27-4.20); Total Bilirubin 0.2 mg/dL (0.15-1.2); Uric Acid 3.8 mg/dL (2.4-5.7)
[2023-12-15 10:51] LABS: Urine Random Sodium 45 mmol/L
[2023-12-15 11:13] LABS: Urea Nitrogen,Urine Random 495 mg/dL
[2023-12-15 14:22] LABS: Add Urine Microscopic? NO; Charge for UA Resulting for Rev
[2023-12-15 14:30] LABS: Bilirubin Urine Neg (Negative); Blood Urine Neg (Negative); Glucose Urine UA 4+ (Normal); Ketones Urine Negative (Negative); Leukocyte Esterase Urine Negative (Negative); Nitrate Urine Negative (Negative); Protein Urine Neg (Negative); Urine Appearance Clear (CLEAR); Urine Color Yellow (Yellow); Urobilinogen Urine Norm (Negative); pH Urine 6 (5-7)
[2023-12-16 13:00] LABS: Osmolality Urine 390 mOsm/kg (50-1200)
== END 2023-12-15 10:01 | disposition home or self-care (01) ==
LOC: LAB 10:02
PROVIDERS: Absent Provider Internal Medicine Rheumatology; PCP Family Medicine; Visit Provider Family Medicine
DX: M32.9 Systemic lupus erythematosus, unspecified (principal); E87.1 Hypo-osmolality and hyponatremia
CPT/HCPCS: 36415; 80053; 81003; 82533; 82657; 83935; 84300; 84439; 84443; 84540; 84550; 85025

== ENCOUNTER 2023-12-19 12:37 | Emergency (ER) | payer OTHER, MEDICAID, SELFPAY ==
[2023-12-19 12:42] VITALS: BP 138/86; PULSE 90; RESP 18; TEMP 36.7; O2SAT 100; BMI 49.7
--- NOTE | 2023-12-19 13:21 | ED_ITS ---
HPI - Recheck/Abnormal Lab/Rx 2 General: Chief Complaint: Recheck/Abnormal Lab/Rx Stated Complaint: abnormal labs, weakness Time Seen by Provider: 12/19/23 13:12 History of Present Illness: 43-year-old female with history of lupus , COPD, morbid obesity, bipolar disorder/depression, hyperlipidemia, hypertension and diabetes who presents to the emergency room with weakness and an report of abnormal labs. Patient chart indicates she has had issues with hyponatremia in the past. She says her doctor told her her sodium was low and her potassium was low. She says she has been feeling weak and foggy headed . No chest pain. Some exertional dyspnea. No abdominal pain. No nausea or vomiting. No known fevers. Review of Systems 2 Narrative: Constitutional symptoms: Negative except as documented in HPI. Skin symptoms: Negative except as documented in HPI. Eye symptoms: Negative except as documented in HPI. ENMT symptoms: Negative except as documented in HPI. Respiratory symptoms: Negative except as documented in HPI. Cardiovascular symptoms: Negative except as documented in HPI. Gastrointestinal symptoms: Negative except as documented in HPI. Genitourinary symptoms: Negative except as documented in HPI. Musculoskeletal symptoms: Negative except as documented in HPI. Neurologic symptoms: Negative except as documented in HPI. Psychiatric symptoms: Negative except as documented in HPI. Endocrine symptoms: Negative except as documented in HPI. PFSH ED 2 PFSH: Medical History (Updated 12/12/23 @ 09:40 by Elan Kuhn MD) Lung injury associated with vaping Contact dermatitis SLE (systemic lupus erythematosus related syndrome) Hypothyroidism COPD (chronic obstructive pulmonary disease) Leukocytosis Rosacea Positive double stranded DNA antibody test Labral tear of left hip joint KI (obstructive sleep apnea) Morbid obesity Bipolar 1 disorder PTSD (post-traumatic stress disorder) Hyponatremia Chronic urticaria Insomnia Mild intermittent asthma Allergic rhinitis GERD (gastroesophageal reflux disease) Shingles 4th occurrence Hyperlipemia, mixed Helicobacter pylori gastritis Mandibular fracture Diabetes mellitus Type 2 Depression Hypertension Surgical History History of mandibular surgery For mandibular fracture H/O esophagogastroduodenoscopy (09/02/21) H/O thyroidectomy S/P cholecystectomy S/P tonsillectomy and adenoidectomy S/P breast lumpectomy Right breast lumpectomy for benign disease Previous section Family History Father Hypertension Cancer testicular Cardiac abnormality Mother Congestive heart failure (CHF) COPD (chronic obstructive pulmonary disease) Diabetes Cancer ovarian and uterine Family/Other Cancer Maternal aunt- HR2 breast Other CAD (coronary artery disease) Family history of premature coronary artery disease Hyperlipidemia Lung disease Psychiatric illness Rheumatoid arthritis Stroke Denies family history of Lupus Clotting disorder Dementia Chronic kidney disease (CKD) Anesthesia complication Bleeding disorder Social History Smoking and tobacco/nicotine status: former use of tobacco/nicotine Quit status (tobacco/nicotine): has quit using Year quit tobacco: July Former quit date comment: Hx of 2 ppd X 25 years, started at age 16 yr. Alcohol intake: former Substance/Drug Use: never Adopted: No Caregiver/support person: No Lives independently: Yes Household members: spouse and family Housing: House Marital status: Number of children: 2 Number of grandchildren: 1 Highest education level completed: Some College, No Degree service: No Current occupational status: employed Current occupation: [employer] Sexually active: Yes Do you think of yourself as: Straight/Heterosexual Current gender identity: Female [place]/Episcopalian: [employer] Special balbina needs: No Agree to transfusion: Yes Physical Exam 2 Narrative: EXAM NARRATIVE: General: Alert, no acute distress. Skin: Warm, dry. Head: Normocephalic, atraumatic. Neck: Supple, trachea midline. Eye: Extraocular movements are intact. Ears, nose, mouth and throat: mucosa moist. Cardiovascular: Regular, Normal peripheral perfusion. Respiratory: Lungs are clear to auscultation, respirations are non-labored, breath sounds are equal, Symmetrical chest wall expansion. Gastrointestinal: Soft, Nontender, Non distended, Normal bowel sounds. Musculoskeletal: Normal ROM, no deformity. Neurological: Alert and oriented, No focal neurological deficit observed. Psychiatric: Cooperative, appropriate mood & affect. Course 2 Vital Signs: Vital signs: Vital Signs Temperature 98.1 F 12/19/23 12:42 Pulse Rate 82 12/19/23 13:29 Respiratory Rate 20 H 12/19/23 13:29 Blood Pressure 142/89 12/19/23 13:29 Pulse Oximetry 99 12/19/23 13:29 Oxygen Delivery Me thod Room Air 12/19/23 13:29 MDM - Recheck/Abnormal Lab/Rx Medical Decision Making Medical decision making: Differential diagnosis including but not limited to and based on the above HPI, review of systems and physical exam: Patient with weakness and reports of hyponatremia and hypokalemia. Repeating lab work to confirm before treatment. Also with her report of weakness checking urinalysis. Orders placed to evaluate differential diagnosis based on the above differential, HPI and physical exam Lab Review: Laboratory results were reviewed and interpreted by myself the emergency room physician. Sodium is 135 today. It is up from 128 127 recently. Potassium is 3.9. BUN and creatinine are 11 and 0.5. Hemoglobin is 12. Urine shows early signs of infection and given that she is on multiple immunocompromising medications I am treating this UTI. Flu and COVID are negative I reviewed the patient's medical record. Reexamination: Patient remained stable. No increased work of breathing. No altered mental status. No focal motor deficits. I spoke with her about the plan and she states understanding Lab Data 12/19/23 13:52 12/19/23 13:52 Laboratory Results WBC 7.85 10^3/uL (3.29-11.43) 12/19/23 13:52 RBC 4.34 10^6/uL (3.85-5.65) 12/19/23 13:52 Hgb 12.00 g/dL (11.27-16.99) 12/19/23 13:52 Hct 36.2 % (36-47) 12/19/23 13:52 MCV 83.4 fl (85-98) L 12/19/23 13:52 MCH 27.6 pg (27-33) 12/19/23 13:52 MCHC 33.1 g/dL (30-55) 12/19/23 13:52 RDW 13.4 % (12.1-15.1) 12/19/23 13:52 Plt Count 354 10^3/cmm (157-399) 12/19/23 13:52 MPV 9.0 fL (7.4-10.4) 12/19/23 13:52 Neut % (Auto) 59.4 % 12/19/23 13:52 Lymph % (Auto) 26.4 % 12/19/23 13:52 [place] % (Auto) 9.4 % 12/19/23 13:52 Eos % (Auto) 1.7 % 12/19/23 13:52 Baso % (Auto) 1.8 % 12/19/23 13:52 Neut # (Auto) 4.67 10^3/uL (1.8-7.7) 12/19/23 13:52 Lymph # (Auto) 2.1 10^3/uL (0.8-4.8) 12/19/23 13:52 [place] # (Auto) 0.7 10^3/uL (0.2-0.9) 12/19/23 13:52 Eos # (Auto) 0.1 10^3/uL (0.0-0.8) 12/19/23 13:52 Baso # (Auto) 0.1 10^3/uL (0.0-0.1) 12/19/23 13:52 Nucleated RBC % (auto) 0 % 12/19/23 13:52 Nucleated RBCs # 0.0 /100WBC 12/19/23 13:52 Sodium 135 mmol/L (136-145) L 12/19/23 13:52 Potassium 3.9 mmol/L (3.5-5.1) 12/19/23 13:52 Chloride 96 mmol/L (98-107) L 12/19/23 13:52 Carbon Dioxide 28 mmol/L (22-29) 12/19/23 13:52 Anion Gap 14.9 (5-19) 12/19/23 13:52 BUN 11 mg/dL (6-20) 12/19/23 13:52 Creatinine 0.5 mg/dL (0.5-0.9) 12/19/23 13:52 GFR Calculation 136.0 mL/min (90-130) H 12/19/23 13:52 Glucose 104 mg/dL (65-115) 12/19/23 13:52 Calculated Osmolality 280 mOsm/kg (285-295) L 12/19/23 13:52 Calcium 9.4 mg/dL (8.5-10.5) 12/19/23 13:52 Magnesium 1.5 mg/dL (1.7-2.3) L 12/19/23 13:52 Total Bilirubin 0.2 mg/dL (0.15-1.2) 12/19/23 13:52 AST 15 U/L (0-32) 12/19/23 13:52 ALT 27 U/L (0-33) 12/19/23 13:52 Alkaline Phosphatase 98 U/L (35-105) 12/19/23 13:52 Total Protein 7.7 g/dL (6.6-8.7) 12/19/23 13:52 Albumin 4.4 g/dL (3.5-5.2) 12/19/23 13:52 Globulin 3.3 g/dL (1.3-4.6) 12/19/23 13:52 HCG, Qual Negative (Negative) 12/19/23 13:22 Urine Color Yellow (Yellow) 12/19/23 13:22 Urine Appearance Sl hazy (CLEAR) A 12/19/23 13:22 Urine pH 5 (5-7) 12/19/23 13:22 Ur Specific [place] 1.010 (1.005-1.030) 12/19/23 13:22 Urine Protein Neg (Negative) 12/19/23 13:22 Urine Glucose (UA) Norm (Normal) 12/19/23 13:22 Urine Ketones Negative (Negative) 12/19/23 13:22 Urine Blood Trace (Negative) H 12/19/23 13:22 Urine Nitrate Negative (Negative) 12/19/23 13:22 Urine Bilirubin Neg (Negative) 12/19/23 13:22 Urine Urobilinogen Norm mg/dL (Negative) 12/19/23 13:22 Ur Leukocyte Esterase Negative (Negative) 12/19/23 13:22 Urine RBC 0-4 /hpf (0-2) H 12/19/23 13:22 Urine WBC 0-4 /hpf (0-5) H 12/19/23 13:22 Ur Squamous Epith Cells 0-4 /hpf (0-5) H 12/19/23 13:22 Amorphous Sediment Not Reportable 12/19/23 13:22 Urine Bacteria Trace /hpf (NONE) 12/19/23 13:22 Influenza Type A Ag negative (Negative) 12/19/23 13:21 Influenza Type B Ag negative (Negative) 12/19/23 13:21 SARS-CoV-2 Ag (Rapid) negative (Negative) 12/19/23 13:21 No radiology studies performed this visit Other Data Assessment and plan: -Mild dehydration, 500 mL normal saline bolus. UTI: IV Rocephin - Discharged home - Discussed plan with patient. Answered any questions. - Evaluation and treatment of this problem were appropriate in the emergency setting. Discharge Plan Discharge Condition: Stable Prescriptions: No Action trazodone 100 mg tablet 150 mg PO .hs hydroxychloroquine 200 mg tablet 200 mg PO BID Qty: 180 1RF methotrexate sodium 25 mg/mL solution 25 mg SUBCUT .Q7days Qty: 10 1RF pantoprazole [Protonix] 40 mg tablet,delayed release (DR/EC) 40 mg PO BID Qty: 180 1RF prednisone 20 mg tablet See Rx Instructions PO .COMPLEX Qty: 90 1RF Rx Instructions: Take 1 daily til feeling better then can stay on one half tab daily orally; (DME) CAM boot See Rx Instructions .Route .MEDSUPPLY Qty: 1 0RF Rx Instructions: As directed docusate sodium [Colace] 100 mg capsule 200 mg PO DAILY albuterol sulfate [Ventolin HFA] 90 mcg/actuation HFA aerosol inhaler 2 puff INHALATION Q4H PRN (Reason: Shortness Of Breath) Qty: 8.5 3RF Trelegy Ellipta 100-62.5-25 mcg blister with device 1 inh inhalation DAILY Qty: 60 6RF folic acid 1 mg tablet 1 mg PO DAILY Qty: 90 1RF (DME) insulin syringes (disposable) 1 mL syringe See Rx Instructions .ROUTE .MEDSUPPLY Qty: 25 1RF Rx Instructions: As directed (DME) Polar ice box for hip pain See Rx Instructions .Route .MEDSUPPLY Qty: 1 0RF Rx Instructions: As directed atorvastatin 20 mg tablet 20 mg PO DAILY Qty: 90 3RF epinephrine [EpiPen 2-Edward] 0.3 mg/0.3 mL auto-injector 0.3 mg IM Q15M PRN (Reason: anaphylaxis) Qty: 2 0RF Rx Instructions: for 2 doses montelukast [Singulair] 10 mg tablet 10 mg PO DAILY Qty: 90 3RF oxcarbazepine [Trileptal] 600 mg tablet See Rx Instructions PO .COMPLEX Rx Instructions: Take one in am and 2 in pm orally; benzonatate 200 mg capsule 200 mg PO BID PRN (Reason: cough) Qty: 20 0RF ciprofloxacin HCl 500 mg tablet 500 mg PO BID Qty: 14 0RF guaifenesin [Mucinex] 1,200 mg tablet extended release 12hr 1,200 mg PO BID Qty: 14 0RF fluticasone propionate [Flonase Allergy Relief] 50 mcg/actuation spray,suspension 2 spray intranasal DAILY Qty: 16 0RF Rx Instructions: administer into each nostril gabapentin 600 mg tablet 600 mg PO TID Qty: 180 1RF Januvia 100 mg tablet 100 mg PO DAILY Qty: 90 1RF torsemide 20 mg tablet See Rx Instructions PO QAM Qty: 90 0RF Rx Instructions: take 2 tablets in AM x 7 days, then once daily therafter orally every morning; albuterol sulfate 2.5 mg /3 mL (0.083 %) solution for nebulization 2.5 mg inhalation Q4H PRN (Reason: Shortness Of Breath) Qty: 90 3RF Benlysta 200 mg/mL syringe 200 mg SUBCUT .Q7days 84 Days Qty: 12 1RF Hold Instructions: Doctor's Order hydrocodone-acetaminophen 5-325 mg tablet 1 tab PO .Q8hrs PRN (Reason: pain (scale score 7-10)) 30 Days Qty: 60 0RF hydrocodone-acetaminophen 5-325 mg tablet 1 tab PO Q8H PRN (Reason: pain (scale score 7-10)) 30 Days Qty: 60 0RF hydrocodone-acetaminophen 5-325 mg tablet 1 tab PO Q8H PRN (Reason: pain (scale score 7-10)) 30 Days Qty: 21 0RF levothyroxine 200 mcg tablet 200 mcg PO DAILY Qty: 90 0RF Rx Instructions: 200mcg tue-tue, 100mcg on tuesday lisinopril 40 mg tablet 40 mg PO BEDTIME Qty: 90 2RF sodium chloride 1,000 mg tablet,soluble 1,000 mg PO DAILY Qty: 14 0RF ondansetron 4 mg tablet,disintegrating See Rx Instructions .ROUTE .COMPLEX Qty: 60 1RF Dose Instruction: DISSOLVE ONE TABLET BY MOUTH EVERY 6 HOURS NEEDED FOR NAUSEA AND VOMITING Rx Instructions: DISSOLVE ONE TABLET BY MOUTH EVERY 6 HOURS NEEDED FOR NAUSEA AND VOMITING azathioprine 50 mg tablet 50 mg PO BID Qty: 60 3RF acetaminophen [Tylenol Extra Strength] 500 mg Tablet 1,000 mg PO Q6H PRN (Reason: Pain) diphenhydramine HCl [Benadryl Allergy] 25 mg Tablet 25 - 50 mg PO PRN azelastine 205.5 mcg (0.15 %) spray,non-aerosol 2 spray INTRANASAL BID PRN (Reason: alternates with flonase every other day) ziprasidone HCl 80 mg Capsule 80 mg PO BID ipratropium-albuterol 0.5 mg-3 mg(2.5 mg base)/3 mL solution for nebulization 3 ml inhalation Q8H PRN (Reason: wheezing) Qty: 90 0RF buspirone 30 mg tablet 30 mg PO BID dextroamphetamine-amphetamine 30 mg capsule,extended release 24hr 30 mg PO QAM Rexulti 2 mg tablet 2 mg PO DAILY Pyridium 100 mg tablet 100 mg PO Q8H Qty: 6 0RF Referrals: Elan Kuhn MD [Primary Care Provider] - Coding Level of Care Code ED [employer] Field Specialist for Chao Monsalve
[2023-12-19 13:29] VITALS: BP 142/89; PULSE 82; RESP 20; O2SAT 99
[2023-12-19 13:37] LABS: HCG Qualitative Urine. Negative (Negative)
[2023-12-19 13:53] LABS: Add Urine Culture? No; Bacteria Urine TRACE /hpf; Bilirubin Urine Neg (Negative); Blood Urine Trace (Negative); Glucose Urine UA Norm (Normal); Ketones Urine Negative (Negative); Leukocyte Esterase Urine Negative (Negative); Nitrate Urine Negative (Negative); Protein Urine Neg (Negative); RBC Urine 0-4 /hpf (0-2); Squamous Epithelial Cell Urine 0-4 /hpf (0-5); Urine Appearance SL Hazy (CLEAR); Urine Color Yellow (Yellow); Urobilinogen Urine Norm (Negative); WBC Urine 0-4 /hpf (0-5); pH Urine 5 (5-7)
[2023-12-19 13:58] LABS: Influenza A by IFA negative (Negative); Influenza B by IFA negative (Negative); SARS Covid-2 Antigen negative (Negative)
[2023-12-19 14:03] LABS: Basophils # 0.1 10^3/uL (0.0-0.1); Basophils % 1.8 %; Eosinophils # 0.1 10^3/uL (0.0-0.8); Eosinophils % 1.7 %; Hematocrit 36.2 % (36-47); Lymphocytes # 2.1 10^3/uL (0.8-4.8); Lymphocytes % 26.4 %; Mean Corpuscular HGB Conc 33.1 g/dL (30-55); Mean Corpuscular Hemoglobin 27.6 pg (27-33); Mean Corpuscular Volume 83.4 fl (85-98); Monocytes # 0.7 10^3/uL (0.2-0.9); Monocytes % 9.4 %; Neutrophils # 4.67 10^3/uL (1.8-7.7); Neutrophils % 59.4 %; Nucleated Red Blood Cells % 0 %; Platelet Count 354 10^3/cmm (157-399); Red Blood Count 4.34 10^6/uL (3.85-5.65); Red Cell Distribution Width 13.4 % (12.1-15.1); White Blood Count 7.85 10^3/uL (3.29-11.43)
[2023-12-19 14:21] LABS: Alanine Aminotransferase 27 U/L (0-33); Albumin Level 4.4 g/dL (3.5-5.2); Alkaline Phosphatase 98 U/L (35-105); Anion Gap 14.9 (5-19); Aspartate Amino Transferase 15 U/L (0-32); Blood Urea Nitrogen 11 mg/dL (6-20); Calcium 9.4 mg/dL (8.5-10.5); Carbon Dioxide 28 mmol/L (22-29); Chloride 96 mmol/L (98-107); Creatinine Clr Calc Pharmacy 213.7934; Globulin 3.3 g/dL (1.3-4.6); Glucose 104 mg/dL (65-115); Magnesium 1.5 mg/dL (1.7-2.3); Osmolality Calculated 280 mOsm/kg (285-295); Potassium 3.9 mmol/L (3.5-5.1); Sodium 135 mmol/L (136-145); Total Bilirubin 0.2 mg/dL (0.15-1.2); Total Protein 7.7 g/dL (6.6-8.7)
[2023-12-19] MEDS: cefTRIAXone 1,000 MG in sodium chloride 0.9% (plus) 50 ML 100 MG IV (14:42)
[2023-12-19 15:01] VITALS: PULSE 84; RESP 16; O2SAT 100
[2023-12-19] MEDS: sodium chloride 0.9% 500 ML 999 ML IV (15:03)
[2023-12-19 15:17] VITALS: BP 128/74; PULSE 85; RESP 18; O2SAT 98
== END 2023-12-19 15:18 | disposition home or self-care (01) ==
PROVIDERS: Emergency Provider Emergency Medicine; PCP Family Medicine
DX: R53.1 Weakness (principal); Z11.52 Encounter for screening for COVID-19; Z87.891 Personal history of nicotine dependence; M32.9 Systemic lupus erythematosus, unspecified; J44.9 Chronic obstructive pulmonary disease, unspecified; E78.2 Mixed hyperlipidemia; E11.9 Type 2 diabetes mellitus without complications; I10 Essential (primary) hypertension
CPT/HCPCS: 36415; 80053; 81001; 81025; 83735; 85025; 87426; 87804; 96374; 99284; J0696; J7040

== ENCOUNTER 2023-12-22 07:29 | Outpatient (CLI) | payer OTHER, MEDICAID, SELFPAY ==
[2023-12-22 08:09] LABS: Alanine Aminotransferase 28 U/L (0-33); Albumin Level 4.3 g/dL (3.5-5.2); Alkaline Phosphatase 88 U/L (35-105); Anion Gap 13.1 (5-19); Aspartate Amino Transferase 23 U/L (0-32); Blood Urea Nitrogen 12 mg/dL (6-20); C Reactive Protein 8.9 mg/L (0.0-4.9); Calcium 8.9 mg/dL (8.5-10.5); Carbon Dioxide 28 mmol/L (22-29); Chloride 98 mmol/L (98-107); Globulin 2.7 g/dL (1.3-4.6); Glomerular Filtration Rate 110.2 mL/min (90-130); Glucose 248 mg/dL (65-115); Osmolality Calculated 288 mOsm/kg (285-295); Potassium 4.1 mmol/L (3.5-5.1); Sodium 135 mmol/L (136-145); Total Bilirubin 0.2 mg/dL (0.15-1.2)
== END 2023-12-22 07:30 | disposition home or self-care (01) ==
LOC: LAB 07:31
PROVIDERS: PCP Family Medicine; Visit Provider Family Medicine
DX: M32.9 Systemic lupus erythematosus, unspecified (principal); E87.1 Hypo-osmolality and hyponatremia
CPT/HCPCS: 36415; 80053; 86140

== ENCOUNTER 2024-01-03 17:36 | Outpatient (CLI) | payer OTHER, MEDICAID, SELFPAY ==
[2024-01-03 18:42] LABS: Basophils # 0.2 10^3/uL (0.0-0.1); Basophils % 1.5 %; Eosinophils # 0.2 10^3/uL (0.0-0.8); Eosinophils % 1.4 %; Hematocrit 34.9 % (36-47); Lymphocytes # 2.1 10^3/uL (0.8-4.8); Lymphocytes % 19.9 %; Mean Corpuscular HGB Conc 33.5 g/dL (30-55); Mean Corpuscular Hemoglobin 28.2 pg (27-33); Mean Corpuscular Volume 84.1 fl (85-98); Mean Platelet Volume 9.9 fL (7.4-10.4); Monocytes # 0.8 10^3/uL (0.2-0.9); Monocytes % 7.2 %; Neutrophils % 68.7 %; Nucleated Red Blood Cells % 0 %; Platelet Count 323 10^3/cmm (157-399); Red Blood Count 4.15 10^6/uL (3.85-5.65); Red Cell Distribution Width 13.7 % (12.1-15.1); White Blood Count 10.77 10^3/uL (3.29-11.43)
[2024-01-03 18:48] LABS: Bilirubin Urine Neg (Negative); Blood Urine Neg (Negative); Glucose Urine UA Norm (Normal); Ketones Urine Negative (Negative); Leukocyte Esterase Urine Negative (Negative); Nitrate Urine Negative (Negative); Protein Urine Neg (Negative); Urine Appearance Clear (CLEAR); Urine Color Yellow (Yellow); Urobilinogen Urine Norm (Negative); pH Urine 6 (5-7)
[2024-01-03 18:51] LABS: Add Urine Culture? No; Bacteria Urine TRACE /hpf; Transitional Epi Cells Urine 0-4 /hpf; WBC Urine 0-4 /hpf (0-5)
[2024-01-03 19:04] LABS: Alanine Aminotransferase 29 U/L (0-33); Albumin Level 4.6 g/dL (3.5-5.2); Alkaline Phosphatase 100 U/L (35-105); Aspartate Amino Transferase 26 U/L (0-32); C Reactive Protein 9.4 mg/L (0.0-4.9); Globulin 3.2 g/dL (1.3-4.6); Glomerular Filtration Rate 110.2 mL/min (90-130); Total Bilirubin 0.2 mg/dL (0.15-1.2); Total Protein 7.8 g/dL (6.6-8.7)
[2024-01-03 19:06] LABS: Urine Creatinine 149 mg/dL (28-217); Urine Protein Random 10 mg/dL
[2024-01-03 20:05] LABS: Erythrocyte Sedimentation Rate 26 mm/hr (0-15)
[2024-01-03 20:16] LABS: Complement C3 167 mg/dL (90-180)
[2024-01-05 11:54] LABS: Smith Antibody <1.0 NEG AI (<1.0 NEG)
[2024-01-05 13:05] LABS: Anti-Double Strand DNA AB 14 IU/mL
== END 2024-01-03 17:37 | disposition home or self-care (01) ==
LOC: LAB 17:39
PROVIDERS: PCP Family Medicine; Visit Provider Internal Medicine Rheumatology
DX: Z79.899 Other long term (current) drug therapy (principal); M32.9 Systemic lupus erythematosus, unspecified; R76.8 Other specified abnormal immunological findings in serum
CPT/HCPCS: 36415; 80076; 81001; 82565; 82570; 84156; 85025; 85651; 86140; 86160; 86225; 86235

== ENCOUNTER 2024-01-04 15:25 | Outpatient (CLI) | payer OTHER, MEDICAID, SELFPAY ==
--- NOTE | 2024-01-04 15:30 | XR_ITS ---
WS: [email or web address] Right foot, 3 views, 01/04/2024 Clinical Data: M19.90 - Unspecified osteoarthritis, unspecified site Comparison: Right foot, 02/19/2019 Findings: No fractures or dislocations are seen. No bone destruction or erosion is noted. The joint spaces and soft tissues are normal. No periarticular demineralization or calcifications are seen. XR/XR foot RT min 3V* [id number] Impression: Negative right foot.
--- NOTE | 2024-01-04 15:30 | XR_ITS ---
WS: [email or web address] Left foot, 3 views, 01/04/2024 Clinical Data: M19.90 - Unspecified osteoarthritis, unspecified site Comparison: None. Findings: No fractures or dislocations are seen. No bone destruction or erosion is noted. The joint spaces and soft tissues are normal. No periarticular demineralization or calcifications are seen. XR/XR foot LT min 3V* [id number] Impression: Negative left foot.
--- NOTE | 2024-01-04 15:30 | XR_ITS ---
WS: [email or web address] Left hand, 3 views, 01/04/2024 Clinical Data: M19.90 - Unspecified osteoarthritis, unspecified site Comparison: Left hand, 03/25/2011 Findings: No fractures or dislocations are seen. The soft tissues are unremarkable. The joint spaces are normal No periarticular demineralization or calcifications are seen. XR/XR hand LT min 3V* [id number] Impression: Negative left hand.
--- NOTE | 2024-01-04 15:30 | XR_ITS ---
WS: [email or web address] Right hand, 3 views, 01/04/2024 Clinical Data: M19.90 - Unspecified osteoarthritis, unspecified site Comparison: Right hand, 03/30/2016 Findings: No fractures or dislocations are seen. The soft tissues are unremarkable. The joint space s are normal No periarticular demineralization or calcifications are seen. XR/XR hand RT min 3V* [id number] Impression: Negative right hand.
== END 2024-01-04 15:26 | disposition home or self-care (01) ==
LOC: RAD 15:27
PROVIDERS: PCP Family Medicine; Visit Provider Internal Medicine Rheumatology
DX: M19.90 Unspecified osteoarthritis, unspecified site (principal)
CPT/HCPCS: 73130; 73630

== ENCOUNTER 2024-01-07 10:44 | Emergency (ER) | payer OTHER, MEDICAID, SELFPAY ==
[2024-01-07 11:31] VITALS: BP 168/86; PULSE 90; RESP 18; TEMP 36.8; O2SAT 96
--- NOTE | 2024-01-07 11:55 | XRR_ITS ---
PROCEDURE INFORMATION: Exam: XR Left Ankle Exam date and time: 01/07/2024 12:02 PM Age: 43 years old Clinical indication: Injury or trauma; Fall; Blunt trauma; Ankle and foot; Left; Additional info: Left ankle pain TECHNIQUE: Imaging protocol: Radiologic exam of the left ankle. Views: 3 or more views. COMPARISON: MR ankle LT wo con* [id number] 10/10/2023 2:56 PM FINDINGS: Bones/joints: Bilateral well corticated ossicles along the medial and lateral malleolus. No acute fracture or subluxation. Soft tissues: Mild soft tissue swelling along the medial malleolus which can be seen with sprain. XR/XR ankle LT min 3V* [id number] IMPRESSION: No acute fracture, mild soft tissue swelling which can be seen with a sprain.
--- NOTE | 2024-01-07 11:55 | XRR_ITS ---
PROCEDURE INFORMATION: Exam: XR Left Foot Exam date and time: 01/07/2024 12:03 PM Age: 43 years old Clinical indication: Injury or trauma; Fall; Blunt trauma; Ankle and foot; Left; Additional info: L foot pain TECHNIQUE: Imaging protocol: Radiologic exam of the left foot. Views: 1 or 2 views. COMPARISON: CR XR foot LT min 3V* [id number] 01/04/2024 3:33 PM FINDINGS: Bones/joints: Normal. Soft tissues: Normal. XR/XR foot LT 2V [id number] IMPRESSION: No acute findings.
--- NOTE | 2024-01-07 11:58 | ED_ITS ---
HPI - Extremity Problem General: Chief complaint: Extremity Injury, Lower Stated complaint: left ankle pain, fall Time Seen by Provider: 01/07/24 11:41 Source: patient Mode of arrival: ambulatory (With crutches) History of Present Illness: Patient was attending graduation last night and walking down some steps when somehow she stepped wrong and rolled her left ankle inward. Went down on her full weight. Patient reports that having pain that aches as well as a shooting pain and also some numbness to the area. Has some swelling. Was not able to come in as she had no one to watch her kids last night. Today found childcare and came in to get examined. Pain is moderate to severe. Worse with movement. Review of Systems General: Reports: 10 or more systems reviewed and unremarkable except in HPI and below PFSH ED PFSH: Medical History (Updated 01/07/24 @ 12:53 by Natan Mack MD) Lung injury associated with vaping Contact dermatitis SLE (systemic lupus erythematosus related syndrome) Hypothyroidism COPD (chronic obstructive pulmonary disease) Leukocytosis Rosacea Positive double stranded DNA antibody test Labral tear of left hip joint KI (obstructive sleep apnea) Morbid obesity Bipolar 1 disorder PTSD (post-traumatic stress disorder) Hyponatremia Chronic urticaria Insomnia Mild intermittent asthma Allergic rhinitis GERD (gastroesophageal reflux disease) Shingles 4th occurrence Hyperlipemia, mixed Helicobacter pylori gastritis Mandibular fracture Diabetes mellitus Type 2 Depression Hypertension Surgical History History of mandibular surgery For mandibular fracture H/O esophagogastroduodenoscopy (09/02/21) H/O thyroidectomy S/P cholecystectomy S/P tonsillectomy and adenoidectomy S/P breast lumpectomy Right breast lumpectomy for benign disease Previous section Family History Father Hypertension Cancer testicular Cardiac abnormality Mother Congestive heart failure (CHF) COPD (chronic obstructive pulmonary disease) Diabetes Cancer ovarian and uterine Family/Other Cancer Maternal aunt- HR2 breast Other CAD (coronary artery disease) Family history of premature coronary artery disease Hyperlipidemia Lung disease Psychiatric illness Rheumatoid arthritis Stroke Denies family history of Lupus Clotting disorder Dementia Chronic kidney disease (CKD) Anesthesia complication Bleeding disorder Social History Smoking and tobacco/nicotine status: former use of tobacco/nicotine (1PPD x 30yrs, quit 07/2022) Quit status (tobacco/nicotine): has quit using Year quit tobacco: 2021, Dece mber Former quit date comment: Hx of 2 ppd X 25 years, started at age 16 yr. Alcohol intake: former Substance/Drug Use: never Adopted: No Caregiver/support person: No Lives independently: Yes Household members: spouse and family Housing: House Marital status: Number of children: 2 Number of grandchildren: 1 Highest education level completed: Some College, No Degree service: No Current occupational status: employed Current occupation: [employer] Sexually active: Yes Do you think of yourself as: Straight/Heterosexual Current gender identity: Female Balbina/Judaism: Amish Special balbina needs: No Agree to transfusion: Yes Physical Exam Const: COMMON NORMALS: no acute distress, average body habitus, patient oriented x3, healthy appearing, alert and well nourished GENERAL APPEARANCE: well kempt and well developed Neck/C-Spine: COMMON NORMALS: full ROM Resp: COMMON NORMALS: normal respiratory effort, No retractions and No use of accessory muscles Cardio: COMMON NORMALS: regular rate, regular rhythm, No gallops present (Cardio), No clicks present (Cardio), No murmurs present (Cardio) and No rub (Cardio) RATE: regular rate RHYTHM: regular rhythm Extremity: COMMON NORMALS: full ROM, capillary refill normal and no clubbing, cyanosis or edema GENERAL: Yes normal exam except as noted LEFT LOWER EXTREMITY: Yes ankle joint (Tenderness posterior and lateral with very mild anterior. Noticeable swell) and Yes foot & digits (Mild tenderness to the midfoot on the dorsal location, minimal plantar surf) Neuro: COMMON NORMALS: patient oriented x3 SENSORIUM/ORIENTATION: Yes alert Psych: APPEARANCE: Yes well kempt Skin: COMMON NORMALS: no rashes or lesions noted, no wounds, turgor normal and no jaundice GENERAL SKIN EXAM: no rashes or lesions noted and turgor normal Course ED course: Evaluated, Toradol is helping some. Reviewed imaging with patient. Ankle brace and/or wrap ordered. Patient already has crutches. Vital Signs: Vital signs: Vital Signs Temperature 98.2 F 01/07/24 11:31 Pulse Rate 90 01/07/24 11:31 Respiratory Rate 18 01/07/24 11:31 Blood Pressure 168/86 01/07/24 11:31 Pulse Oximetry 96 01/07/24 11:31 Oxygen Delivery Me thod Room Air 01/07/24 11:31 MDM - Extremity (Nontraumatic) Medical Decision Making X-rays personally reviewed and showed no acute fracture. Suspect lateral posterior left ankle sprain. Discussed with patient possibility of other soft tissue injury given her previous injuries. Patient expresses understanding. Advised patient to follow-up with orthopedics given her history. Continue using crutches nonweightbearing with left ankle until further instruction by orthopedics. Medical Records I reviewed the patient's medical records. Lab Data I reviewed the patient's lab results. Radiology Impressions Ankle X-Ray 01/07/24 11:55 IMPRESSION: No acute fracture, mild soft tissue swelling which can be seen with a sprain. Foot X-Ray 01/07/24 11:55 IMPRESSION: No acute findings. All radiology interpretation(s) finalized by discharge ED provider radiology interpretation(s): see mdm discussion. Discharge Plan Discharge Patient Disposition: Home Clinical Impression: Acute left ankle pain Left ankle sprain Qualifiers: Encounter type: initial encounter Involved ligament of ankle: unspecified ligament Qualified Code(s): S93.402A - Sprain of unspecified ligament of left ankle, initial encounter Condition: Stable Prescriptions: New ketorolac 10 mg tablet 10 mg PO Q4H PRN (Reason: pain) 5 Days Qty: 20 0RF Rx Instructions: Max 4 tabs/day No Action trazodone 100 mg tablet 150 mg PO .hs hydroxychloroquine 200 mg tablet 200 mg PO BID Qty: 180 1RF pantoprazole [Protonix] 40 mg tablet,delayed release (DR/EC) 40 mg PO BID Qty: 180 1RF prednisone 20 mg tablet See Rx Instructions PO .COMPLEX Qty: 90 1RF Rx Instructions: Take 1 daily til feeling better then can stay on one half tab daily orally; (DME) CAM boot See Rx Instructions .Route .MEDSUPPLY Qty: 1 0RF Rx Instructions: As directed methotrexate sodium 25 mg/mL solution 30 mg SUBCUT .Q7days Qty: 10 1RF epinephrine [EpiPen 2-Edward] 0.3 mg/0.3 mL auto-injector 0.3 mg IM Q15M PRN (Reason: anaphylaxis) Qty: 2 0RF Rx Instructions: for 2 doses docusate sodium [Colace] 100 mg capsule 200 mg PO DAILY albuterol sulfate [Ventolin HFA] 90 mcg/actuation HFA aerosol inhaler 2 puff INHALATION Q4H PRN (Reason: Shortness Of Breath) Qty: 8.5 3RF (DME) insulin syringes (disposable) 1 mL syringe See Rx Instructions .ROUTE .MEDSUPPLY Qty: 25 1RF Rx Instructions: As directed atorvastatin 20 mg tablet 20 mg PO DAILY Qty: 90 3RF montelukast [Singulair] 10 mg tablet 10 mg PO DAILY Qty: 90 3RF oxcarbazepine [Trileptal] 600 mg tablet See Rx Instructions PO .COMPLEX Rx Instructions: Take one in am and 2 in pm orally; Januvia 100 mg tablet 100 mg PO DAILY Qty: 90 1RF albuterol sulfate 2.5 mg /3 mL (0.083 %) solution for nebulization 2.5 mg inhalation Q4H PRN (Reason: Shortness Of Breath) Qty: 90 3RF Benlysta 200 mg/mL syringe 200 mg SUBCUT .Q7days 84 Days Qty: 12 1RF Hold Instructions: Doctor's Order hydrocodone-acetaminophen 5-325 mg tablet 1 tab PO .Q8hrs PRN (Reason: pain (scale score 7-10)) 30 Days Qty: 60 0RF hydrocodone-acetaminophen 5-325 mg tablet 1 tab PO Q8H PRN (Reason: pain (scale score 7-10)) 30 Days Qty: 60 0RF hydrocodone-acetaminophen 5-325 mg tablet 1 tab PO Q8H PRN (Reason: pain (scale score 7-10)) 30 Days Qty: 21 0RF levothyroxine 200 mcg tablet 200 mcg PO DAILY Qty: 90 0RF Rx Instructions: 200mcg tue-tue, 100mcg on tuesday lisinopril 40 mg tablet 40 mg PO BEDTIME Qty: 90 2RF ondansetron 4 mg tablet,disintegrating See Rx Instructions .ROUTE .COMPLEX Qty: 60 1RF Dose Instruction: DISSOLVE ONE TABLET BY MOUTH EVERY 6 HOURS NEEDED FOR NAUSEA AND VOMITING Rx Instructions: DISSOLVE ONE TABLET BY MOUTH EVERY 6 HOURS NEEDED FOR NAUSEA AND VOMITING gabapentin 600 mg tablet 600 mg PO TID Qty: 180 1RF folic acid 1 mg tablet 1 mg PO DAILY Qty: 90 1RF azathioprine 50 mg tablet 100 mg PO BID Qty: 60 3RF diphenhydramine HCl [Benadryl Allergy] 25 mg Tablet 25 - 50 mg PO PRN ziprasidone HCl 80 mg Capsule 80 mg PO BID ipratropium-albuterol 0.5 mg-3 mg(2.5 mg base)/3 mL solution for nebulization 3 ml inhalation Q8H PRN (Reason: wheezing) Qty: 90 0RF buspirone 30 mg tablet 30 mg PO BID dextroamphetamine-amphetamine 30 mg capsule,extended release 24hr 30 mg PO QAM Rexulti 2 mg tablet 2 mg PO DAILY Discharge Orders: Discharge ED (Routine); Ordered 01/07/24 Ordered By: Natan Mack Referrals: Elan Kuhn MD [Primary Care Provider] - Discharge Diet: Usual diet Discharge Activity: Limit activity as instructed and Use walker/crutches as instructed Patient Instructions: Ankle Sprain (ED) Coding Level of Care Code ED Edge Drummer for Chao Monsalve
[2024-01-07] MEDS: ketorolac 30 mg/mL INJ IM (12:05)
[2024-01-07 13:21] VITALS: BP 118/83; PULSE 89; O2SAT 97
== END 2024-01-07 13:22 | disposition home or self-care (01) ==
PROVIDERS: Emergency Provider Emergency Medicine; PCP Family Medicine
DX: S93.402A Sprain of unspecified ligament of left ankle, initial encounter (principal); Z87.891 Personal history of nicotine dependence; M32.9 Systemic lupus erythematosus, unspecified; J44.9 Chronic obstructive pulmonary disease, unspecified; E78.2 Mixed hyperlipidemia; E11.9 Type 2 diabetes mellitus without complications; I10 Essential (primary) hypertension; X50.1XXA Overexertion from prolonged static or awkward postures, initial encounter
CPT/HCPCS: 73610; 73620; 96372; 99284; J1885

== ENCOUNTER 2024-01-09 07:45 | Outpatient (CLI) | payer OTHER, MEDICAID, SELFPAY | END 2024-01-09 07:46 | disposition home or self-care (01) | LOC: NSACUTE 10:04 | PROVIDERS: PCP Family Medicine; Visit Provider Psychiatry & Neurology Neurology | DX: R56.9 Unspecified convulsions (principal); F31.9 Bipolar disorder, unspecified; F41.1 Generalized anxiety disorder; R55 Syncope and collapse; E55.9 Vitamin D deficiency, unspecified; R07.9 Chest pain, unspecified; Z79.4 Long term (current) use of insulin | CPT/HCPCS: 99203 ==

== ENCOUNTER 2024-01-09 10:46 | Outpatient (CLI) | payer OTHER, MEDICAID, SELFPAY | END 2024-01-09 10:47 | disposition home or self-care (01) | LOC: SPT 10:48 | PROVIDERS: PCP Family Medicine; Visit Provider Podiatrist Foot & Ankle Surgery | DX: Z46.89 Encounter for fitting and adjustment of other specified devices (principal); S93.402D Sprain of unspecified ligament of left ankle, subsequent encounter; X58.XXXD Exposure to other specified factors, subsequent encounter | CPT/HCPCS: 97760; L4361 ==

== ENCOUNTER → 2024-01-11 07:53 | Outpatient (BNVA) | payer OTHER, MEDICAID, SELFPAY | PROVIDERS: PCP Family Medicine; Visit Provider Nurse Practitioner Family | DX: L30.9 Dermatitis, unspecified (principal); L30.0 Nummular dermatitis; B35.3 Tinea pedis; L21.8 Other seborrheic dermatitis | CPT/HCPCS: 99204 ==

== ENCOUNTER 2024-01-12 16:15 | Outpatient (CLI) | payer OTHER, MEDICAID, SELFPAY ==
--- NOTE | 2024-01-12 16:45 | MR_ITS ---
WS: [id number] MRI BRAIN WITH AND WITHOUT CONTRAST HISTORY: F31.9 - Bipolar disorder, unspecified COMPARISON: None available. TECHNIQUE: Multiplanar imaging performed through the brain with MultiHance 20 ml's IV. No acute infarcts are seen. Lane-white matter differentiation is well preserved. Normal temporal lobe s and hippocampal formations. No susceptibility artifacts or prior lacunar infarcts. Ventricles and extra-axial spaces are normal. Clivus and pituitary gland are normal. Visualized posterior fossa and brainstem are also normal. Postcontrast images are negative for masses or vascular malformations. Dural venous sinuses are normal. Paranasal sinuses: Well aerated with no significant disease. Mastoid air cells: Normal. Calvarium and scalp: Normal. MR/MR head wo/w con [id number] IMPRESSION: 1. Normal MRI brain with contrast. 2. No acute or prior infarct or hemorrhage. 3. Normal hippocampal formations.
[2024-01-12] MEDS: gadobenate dimeglumine 20 mL vial IV (17:07)
== END 2024-01-12 16:16 | disposition home or self-care (01) ==
LOC: RAD 16:15
PROVIDERS: PCP Family Medicine; Visit Provider Psychiatry & Neurology Neurology
DX: F31.9 Bipolar disorder, unspecified (principal); F41.1 Generalized anxiety disorder; R55 Syncope and collapse; M84.373A Stress fracture, unspecified ankle, initial encounter for fracture; R56.9 Unspecified convulsions; E11.9 Type 2 diabetes mellitus without complications; Z79.4 Long term (current) use of insulin; Z87.891 Personal history of nicotine dependence; R07.9 Chest pain, unspecified; E55.9 Vitamin D deficiency, unspecified
CPT/HCPCS: 36415; 70553; 82306; 82607; 82746; 83036; 83921; 99213; A9577

== ENCOUNTER → 2024-01-20 10:31 | Outpatient (BNVA) | payer OTHER, MEDICAID, SELFPAY | PROVIDERS: PCP Family Medicine; Visit Provider Family Medicine | DX: E87.1 Hypo-osmolality and hyponatremia (principal); M76.62 Achilles tendinitis, left leg; M25.372 Other instability, left ankle; M76.72 Peroneal tendinitis, left leg | CPT/HCPCS: 80053; 85025; 99214 ==

== ENCOUNTER 2024-02-08 05:37 | Day surgery (SDC) | payer OTHER, MEDICAID, SELFPAY ==
[2024-02-08] VITALS (11 sets, daily range): BP systolic 91–162; BP diastolic 49–111; PULSE 82–100; RESP 12–19; TEMP 36.1–36.3; O2SAT 94–99; BMI 51.2
[2024-02-08 06:22] LABS: Glucose Point of Care 182 mg/dL (70-110)
[2024-02-08] MEDS: gabapentin 300 mg Capsule PO (06:39)
[2024-02-08] MEDS: acetaminophen 1,000 MG/100 ML PIGGYBACK 400 MG IV (06:40)
--- NOTE | 2024-02-08 06:46 | W.PM.OPSUD ---
Surgery/Procedure H&P Update DATE OF PROCEDURE: February 08, 2024 DATE H&P PERFORMED: 01/20/24 H&P UPDATE INFORMATION: I have reviewed H&P completed within last 30 days, I have examined patient prior to procedure, No changes to prior documentation and H&P is in [facility] EMR on date indicated PREOP DIAGNOSIS: Left peroneal tendon tear, ankle instability PLANNED PROCEDURE: Operation Date: 02/08/24 07:00 Proposed Procedures p Brostrom Procedure Modified Brostrom with Internal Brace [id number], [id number], [id number], S86.312D, M25.372(Left) - Adelfo Murphy DPM s Tendon Repair Foot Peroneal Tendon Repair - peroneus brevis tendon split tear(Left) - Adelfo Murphy DPM s Tenosynovectomy Foot - peroneus longus(Left) - Adelfo Murphy DPM
[2024-02-08] MEDS: sodium chloride 0.9% 1,000 ML 30 ML IV (06:48)
[2024-02-08] MEDS: midazolam 1 mg/mL INJ 2 mL 2 MG IVP (06:48)
[2024-02-08 07:04] LABS: OR HCG Qualitative Urine Negative (Negative)
--- NOTE | 2024-02-08 07:51 | P.ANESASSM_ITS ---
Pre-Anesthetic Assessment Height/Weight: Height 1.65 m Weight 139.706 kg Temp Pulse Resp BP Pulse Ox O2 Del Method 97.3 F L 100 18 162/111 95 Room Air 02/08/24 06:11 02/08/24 06:11 02/08/24 06:11 02/08/24 06:11 02/08/24 06:11 02/08/24 06:26 Preop Diagnosis: Left peroneal tendon tear, ankle instability Operation Date: 02/08/24 07:00 Proposed Procedures p Brostrom Procedure Modified Brostrom with Internal Brace [id number], [id number], [id number], S86.312D, M25.372(Left) - VLADIMIR Bonilla Tendon Repair Foot Peroneal Tendon Repair - peroneus brevis tendon split tear(Left) - Adelfo Murphy DPM s Tenosynovectomy Foot - peroneus longus(Left) - Adelfo Murphy DPM Familial anesthetic complications: none Was Beta Violet taken within 24 hours: N/A Was Clonidine taken within 24 hours: N/A Last intake: Intake Last Liquid Date 02/07/24 Last Liquid Time 23:30 Last Solid Date 02/07/24 Last Solid Time 18:00 Social No alcohol and No tobacco Exam alert, oriented x 3, clear to auscultation bilaterally and regular rate & rhythm Airway Submandibular: within normal limits Cervical ROM: within normal limits Mallampati: Class II Dentition: false (upper) Pulmonary Asthma, Chronic Obstructive Pulmonary Disease and Sleep Apnea CV/HEM Anemia and Hypertension GI Gastroesophageal Reflux Disease Metabolic Diabetes Mellitus, Hyperlipidemia and Morbid Obesity Neuropsych Anxiety and Depression Anesthetic Plan ASA status: 3 Anesthesia: General and Regional (specify below) (Left pop blk) Medications/Allergies Home Medications Medication Instructions Recorded Confirmed Last Taken Type diphenhydramine HCl 25 mg tablet 25 - 50 mg PO PRN 04/08/20 02/07/24 02/06/24 20:00 History (Benadryl Allergy) docusate sodium 100 mg capsule 200 mg PO DAILY 08/18/22 02/07/24 02/07/24 08:00 History (Colace) ziprasidone HCl 80 mg capsule 80 mg PO BID 08/24/22 02/07/24 02/07/24 08:00 History ipratropium 0.5 mg-albuterol 3 mg 3 ml inhalation Q8H PRN wheezing 08/27/22 02/07/24 Unknown Rx (2.5 mg base)/3 mL nebulization #90 mL soln albuterol sulfate 90 mcg/actuation 2 puff inhalation Q4H PRN 09/20/22 02/07/24 Unknown Rx aerosol inhaler (Ventolin HFA) Shortness Of Breath #8.5 grams albuterol sulfate 2.5 mg/3 mL 2.5 mg (3 mL) inhalation Q4H PRN 12/02/22 02/07/24 Unknown Rx (0.083 %) solution for nebulization Shortness Of Breath #90 mL atorvastatin 20 mg tablet 20 mg PO DAILY #90 tabs 04/12/23 02/07/24 02/06/24 19:30 Rx montelukast 10 mg tablet 10 mg PO DAILY #90 tabs 04/12/23 02/07/24 02/06/24 22:00 Rx (Singulair) trazodone 100 mg tablet 150 mg PO .hs 04/12/23 02/07/24 02/06/24 22:00 History insulin syringes (disposable) 1 mL #25 ea 04/18/23 02/02/24 Unknown Rx oxcarbazepine 600 mg tablet See Rx Instructions PO .COMPLEX 07/13/23 02/07/24 02/07/24 08:00 History (Trileptal) buspirone 30 mg tablet 30 mg PO BID 08/26/23 02/07/24 02/07/24 08:00 History dextroamphetamine-amphetamine ER 30 mg PO QAM 08/26/23 02/07/24 02/07/24 08:00 History 30 mg 24hr capsule,extend release hydroxychloroquine 200 mg tablet 200 mg PO BID #180 tabs 10/26/23 02/07/24 02/07/24 08:00 Rx pantoprazole 40 mg tablet,delayed 40 mg PO BID #180 tabs 10/26/23 02/07/24 02/08/24 Rx release (Protonix) prednisone 20 mg tablet See Rx Instructions PO .COMPLEX 10/26/23 02/07/24 Unknown Rx joint pain flare #90 tabs hydrocodone 5 mg-acetaminophen 325 1 tab PO Q8H PRN pain (scale score 11/15/23 02/02/24 Unknown Rx mg tablet 7-10) 30 days #21 tabs hydrocodone 5 mg-acetaminophen 325 1 tab PO Q8H PRN pain (scale score 11/15/23 02/02/24 Unknown Rx mg tablet 7-10) 30 days #60 tabs levothyroxine 200 mcg tablet 200 mcg PO DAILY #90 tabs 12/06/23 02/07/24 02/08/24 Rx sitagliptin phosphate 100 mg 100 mg PO DAILY #90 tabs 12/06/23 02/07/24 02/07/24 08:00 Rx tablet (Januvia) lisinopril 40 mg tablet 40 mg PO BEDTIME #90 tabs 12/12/23 02/07/24 02/06/24 22:00 Rx ondansetron 4 mg disintegrating See Rx Instructions .Route 12/16/23 02/07/24 02/06/24 22:00 Rx tablet .COMPLEX #60 ea gabapentin 600 mg tablet 600 mg PO TID #180 tabs 12/22/23 02/07/24 02/07/24 08:00 Rx epinephrine 0.3 mg/0.3 mL 0.3 mg (0.3 mL) IM Q15M PRN 12/23/23 02/07/24 Unknown Rx injection, auto-injector (EpiPen anaphylaxis #2 ea 2-Edward) methotrexate sodium 25 mg/mL 30 mg (1.2 mL) SUBCUT .Q7days #10 12/23/23 02/07/24 02/01/24 Rx injection solution mL folic acid 1 mg tablet 1 mg PO DAILY #90 tabs 01/02/24 02/07/24 02/07/24 08:00 Rx CAM boot #1 ea 01/09/24 02/02/24 Unknown Rx brexpiprazole 3 mg tablet (Rexulti) 3 mg PO DAILY 01/09/24 02/07/24 02/07/24 08:00 History hydrocodone 5 mg-acetaminophen 325 1 tab PO .Q8hrs PRN pain (scale 01/19/24 02/07/24 02/07/24 09:30 Rx mg tablet score 7-10) 30 days #60 tabs knee scooter #1 ea 01/20/24 02/02/24 Unknown Rx azathioprine 50 mg tablet 100 mg (2 x 50 mg) PO BID #120 tabs 02/01/24 02/07/24 02/07/24 08:00 Rx mecobalamin (vitamin B12) 1,000 1,000 mcg sublingual DAILY #30 tabs 02/02/24 02/07/24 02/07/24 08:00 Rx mcg disintegrating tablet,sublingual cholecalciferol (vitamin D3) 1,250 50,000 unit PO DAILY 02/07/24 02/07/24 02/07/24 08:00 History mcg (50,000 unit) capsule hydrocodone 5 mg-acetaminophen 325 1 tab PO Q6H PRN pain #28 tabs 02/08/24 Unknown Rx mg tablet Allergies Allergy/AdvReac Type Severity Reaction Status Date / Time amoxicillin Allergy ALGY-Rash Verified 02/07/24 11:37 bee venom protein (honey bee) Allergy ALGY-Anaphy Verified 02/07/24 11:37 laxis cinnamon Allergy anaphylacti Verified 02/07/24 11:37 c desvenlafaxine [From Pristiq] Allergy Unknown Verified 02/07/24 11:37 fluoxetine [From Prozac] Allergy Unknown Verified 02/07/24 11:37 Latex, Natural Rubber Allergy ALGY-Rash Verified 02/07/24 11:37 oxytocin [From Pitocin] Allergy ADR-Itching Verified 02/07/24 11:37 Penicillins Allergy ALGY-Hives Verified 02/07/24 11:37 Sulfa (Sulfonamide Allergy ALGY-Rash Verified 02/07/24 11:37 Antibiotics) leflunomide AdvReac Intermediate gastric Verified 02/07/24 11:37 Current Medications Generic Name Dose Route Start Last Admin Trade Name Freq PRN Reason Stop Dose Admin Sodium Chloride 1,000 mls @ 30 mls/hr 02/08/24 06:00 02/08/24 06:48 Sodium Chloride 0.9% IV 02/09/24 05:59 30 mls/hr .Q24H HEATH Administration Midazolam HCl 2 mg 02/08/24 05:55 02/08/24 06:48 Midazolam 1 Mg/Ml Inj 2 Ml IVP 2 mg ONCE PRN Administration Preop Anxiety PFSH Anesthesia Medical History B12 deficiency Lung injury associated with vaping Contact dermatitis SLE (systemic lupus erythematosus related syndrome) Hypothyroidism COPD (chronic obstructive pulmonary disease) Leukocytosis Rosacea Positive double stranded DNA antibody test Labral tear of left hip joint KI (obstructive sleep apnea) Morbid obesity Bipolar 1 disorder PTSD (post-traumatic stress disorder) Hyponatremia Chronic urticaria Insomnia Mild intermittent asthma Allergic rhinitis GERD (gastroesophageal reflux disease) Shingles 4th occurrence Hyperlipemia, mixed Helicobacter pylori gastritis Mandibular fracture Diabetes mellitus Type 2 Depression Hypertension Surgical History History of mandibular surgery For mandibular fracture H/O esophagogastroduodenoscopy (09/02/21) H/O thyroidectomy S/P cholecystectomy S/P tonsillectomy and adenoidectomy S/P breast lumpectomy Right breast lumpectomy for benign disease Previous section Family History Father Hypertension Cancer testicular Cardiac abnormality Mother Congestive heart failure (CHF) COPD (chronic obstructive pulmonary disease) Diabetes Cancer ovarian and uterine Family/Other Cancer Maternal aunt- HR2 breast Other CAD (coronary artery disease) Family history of premature coronary artery disease Hyperlipidemia Lung disease Psychiatric illness Rheumatoid arthritis Stroke Denies family history of Lupus Clotting disorder Dementia Chronic kidney disease (CKD) Anesthesia complication Bleeding disorder Social History Smoking and tobacco/nicotine status: former use of tobacco/nicotine Quit status (tobacco/nicotine): has quit using Year quit tobacco: July Former quit date comment: Hx of 2 ppd X 25 years, started at age 16 yr. Alcohol intake: former Substance/Drug Use: never Adopted: No Caregiver/support person: No Lives independently: Yes Household members: spouse and family Housing: House Marital status: Number of children: 2 Number of grandchildren: 1 Highest education level completed: Some College, No Degree service: No Current occupational status: employed Current occupation: [employer] Sexually active: Yes Do you think of yourself as: Straight/Heterosexual Current gender identity: Female Balbina/Mandaeism: Restorationist Special balbina needs: No Agree to transfusion: Yes Data Anesthesia Cardiac Studies: Echocardiogram 08/25/22 Anesthesia Procedures Nerve Block Nerve Block 1: Main Anesthesia: general anesthesia Time Out Performed: Yes Consent: requested by attending/covering physician, from patient, risks and benefits reviewed and patient agrees to proceed Nerve block location: popliteal (left) Anesthesia monitors applied: pulse oximetry, EKG, BP cuff and oxygen Nerve block position: supine Anesthetic Used: ropivicaine 0.5% Amount of anesthesia used (mL): 30 Ultrasound used to: recognize landmarks Nerve Stimulator Used?: No Interscalene/Femoral BLK: 4 stimuplex 21 g needle used for position and inplane approach Injection: neg aspiration of heme Patient Tolerated Procedure: well Complications: none
--- NOTE | 2024-02-08 08:59 | W.PM.BPON ---
Date of procedure: 02/08/2024 Surgeon name: Dr. Adelfo Murphy D.P.M. Research Program Coordinator(s) name(s): Jumana Procedure(s) performed: Left ankle modified Brostr?m with internal brace, peroneus brevis tendon repair, peroneus longus tenosynovectomy, Achilles tendon [place] procedure, PRP injection Achilles Description of findings: Attenuated ATFL left ankle longitudinal split tear peroneus brevis with low-lying muscle belly, significant tenosynovitis Estimated blood loss: 10 cc Tourniquet time: 75 minutes Specimen(s) removed: None Post-operative diagnosis: Left ankle instability, peroneus brevis tendon tear, Achilles tendinosis
--- NOTE | 2024-02-08 09:05 | PM.OP ---
Operative Report Date of procedure: February 08, 2024 Pre-op diagnosis: Left ankle instability Post-op diagnosis: same Post-op findings: Left chronic ankle instability, split longitudinal tear peroneus brevis tendon, tenosynovitis surrounding peroneus longus tendon Procedure done: Left modified Brostr?m with internal brace, repair left peroneus brevis tendon split tear and peroneus longus tenosynovectomy, topaz achilles tendon with PRP injection CPT codes: CPT 99056, CPT 47533 and CPT 62408 Implants: Internal brace, Dx fiber tack anchors x 2 all from [employer] Surgeon: Adelfo Murphy DPM Estimated blood loss: 10 cc 75 minutes Complications: None Findings: See above Procedure: Patient is a 43-year-old female that has a history of left ankle chronic ankle instability and Achilles tendinosis. The patient has had the aforementioned chief complaint for some time. Conservative treatment measures have been attempted and the patient has opted for surgical intervention at this time. A lengthy discussion regarding the procedure, including risks and complications has been had with the patient and is noted in the recent clinic note. Written and verbal consent have been obtained. All patient questions have been answered to the patient?s satisfaction. No written or verbal guarantees have been given or implied. The patient has been NPO since midnight. The history has been reviewed and the history and physical is current. The signed consent was confirmed and placed in the patient chart. Patient imaging has been reviewed and is consistent with the diagnosis. Under mild sedation, the patient was brought into the operating room and placed on the table in the supine position. IV antibiotics were given by the anesthesia team as preoperative surgical prophylaxis. General sedation was then performed by the anesthesiateam. A pneumatic tourniquet was then placed about the left thigh. The operative extremity was then prepped and draped in the usual fashion. The extremity was then elevated and exsanguinated before the tourniquet was inflated to 325 mmHg. After inflation, the following procedure was then performed. Attention was directed to the left ankle where a 5 cm curvilinear incision was made overlying the peroneal tendons. Dissection was carried down through subcutaneous and superficial fascia to the level of the ankle joint capsule. The ankle joint capsule was then incised and reflected anteriorly from the distal fibula. The anterior talofibular ligament was noted to be thickened with evidence of degeneration and fraying consistent with anterior talofibular ligament attenuation. Dissection was carried out anterior to the anterior talofibular ligament before the sinus tarsi guide was placed in the sinus tarsi. A K wire was driven through the guide and positioning of the wire was confirmed on C-arm imaging. Next a cannulated drill system was used to drill over the wire into the talus in preparation for the internal brace swivel lock anchor. After drilling, the drill hole was tapped before the internal brace swivel lock anchor was inserted into the talus per the manufacture protocol. Next, attention was directed to the anterior fibula where 2 separate holes were drilled for a Dx fiber tack anchor from [employer]. The suture anchors were then inserted per the manufacture protocol. A third hole was then drilled into the fibula in between the prior drill holes. This hole was for fixation of the internal brace. Next, the suture anchors were passed through the anterior talofibular ligament after the redundancy of the ligament has been excised. With the ankle and dorsiflexion eversion the Brostr?m procedure was performed with the suture anchors. Next, the internal brace was fixated to the fibula. The ankle was held in neutral positioning for insertion of this anchor. The ankle was then assessed and stressed and was noted to be stable in comparison to the preoperative exam. Attention was directed to the peroneal tendons. Significant mount of tenosynovitis was surrounding the peroneus longus tendon. No tear of the longus tendon was visualized. Tenosynovitis was excised using #15 blade. Peroneus brevis tendon was examined and noted to have a longitudinal split tear. There was also low-lying muscle belly within the tendon sheath. This was excised. Peroneus brevis tendon was repaired using 2-0 FiberWire. Site was then irrigated with copious amounts sterile saline before attention was directed to closure. Deep tissue was closed with 2-0 Vicryl followed by subcuticular closure with 4-0 Vicryl and skin closure with 3-0 nylon. Attention was directed to the posterior aspect of the left heel where a grid was mapped out using a skin marker in preparation for [place] Coblation therapy. Next an 18-gauge needle was used to make a stab incision overlying each individual marked. Next the [place] Coblation therapy wand was inserted into each incision and the Achilles tendon insertion site underwent Coblation. All incisions were then dressed with Xeroform, 4 x 4 gauze, Kerlix, Suhas. The tourniquet was let down and good hyperemic response was noted to all digits of the left foot. The patient was placed in a cam boot The patient tolerated the procedure and anesthesia well and without complication. The patient was transported from the operating room to the recovery room with vital signs stable and vascular status intact to all digits of the left foot. The patient was given both written and verbal instructions to remain nonweightbearing to the operative extremity, to keep dressings/splint clean, dry and intact and to take pain medication as directed. The patient will follow-up in the outpatient setting at their scheduled appointment. The patient was discharged with my personal number and was instructed to call if any questions or issues should arise. They were discharged home once anesthesia criteria was met.
[2024-02-08] MEDS: ondansetron 2 mg/ML SDV 2 mL 4 MG IVP (09:16)
--- NOTE | 2024-02-08 15:43 | ANE.PACU2 ---
Inpatient post-anesthesia follow up: Airway intact: Yes Vital signs: Temperature 97.2 F Pulse Rate 85 Respiratory Rate 18 Blood Pressure 126/72 Pulse Oximetry 96 Oxygen Delivery Me thod Room Air Oxygen Flow Rate 10 Fraction of Inspir ed Oxygen Hydration adequate: Yes Nausea and vomiting: No Pain level: 1 Mental status: Baseline
== END 2024-02-08 10:16 | disposition home or self-care (01) ==
PROVIDERS: Anesthesiology; PCP Family Medicine; Visit Provider Podiatrist Foot & Ankle Surgery
PROC: (CPT 27698; principal; 2024-02-08 07:00)
PROC: (CPT 27606; 2024-02-08 07:00)
PROC: (CPT 27606; 2024-02-08 07:00)
DX: M25.372 Other instability, left ankle (principal); S96.912A Strain of unspecified muscle and tendon at ankle and foot level, left foot, initial encounter; X58.XXXA Exposure to other specified factors, initial encounter; M65.872 Other synovitis and tenosynovitis, left ankle and foot; J44.9 Chronic obstructive pulmonary disease, unspecified; I10 Essential (primary) hypertension; E11.9 Type 2 diabetes mellitus without complications; E78.5 Hyperlipidemia, unspecified; E66.01 Morbid (severe) obesity due to excess calories; Z68.43 Body mass index [BMI] 50.0-59.9, adult; G47.33 Obstructive sleep apnea (adult) (pediatric); E03.9 Hypothyroidism, unspecified; I25.10 Atherosclerotic heart disease of native coronary artery without angina pectoris
CPT/HCPCS: 27606; 27659; 27680; 27698; 36416; 81025; 82962; C1713; J0131; J2250; J2405; J2704; J2795; J3010; J7030

== ENCOUNTER → 2024-02-14 15:19 | Outpatient (BNVA) | payer OTHER, MEDICAID, SELFPAY | PROVIDERS: PCP Family Medicine; Referring Provider Dermatology; Visit Provider Orthopaedic Surgery | DX: M54.9 Dorsalgia, unspecified (principal); M54.41 Lumbago with sciatica, right side; M54.42 Lumbago with sciatica, left side; G89.29 Other chronic pain | CPT/HCPCS: 72100; 99204 ==

== ENCOUNTER 2024-02-15 12:38 | Outpatient (CLI) | payer OTHER, MEDICAID, SELFPAY ==
[2024-02-15 13:04] LABS: Basophils # 0.1 10^3/uL (0.0-0.1); Basophils % 1.1 %; Eosinophils # 0.1 10^3/uL (0.0-0.8); Eosinophils % 1.8 %; Hematocrit 32.5 % (36-47); Lymphocytes # 1.3 10^3/uL (0.8-4.8); Mean Corpuscular HGB Conc 33.5 g/dL (30-55); Mean Corpuscular Hemoglobin 27.9 pg (27-33); Mean Corpuscular Volume 83.1 fl (85-98); Mean Platelet Volume 9.3 fL (7.4-10.4); Monocytes # 0.6 10^3/uL (0.2-0.9); Monocytes % 8.3 %; Neutrophils # 4.45 10^3/uL (1.8-7.7); Neutrophils % 66.7 %; Nucleated Red Blood Cells % 0 %; Platelet Count 269 10^3/cmm (157-399); Red Blood Count 3.91 10^6/uL (3.85-5.65); Red Cell Distribution Width 13.9 % (12.1-15.1); White Blood Count 6.66 10^3/uL (3.29-11.43)
[2024-02-15 13:24] LABS: Creatinine Urine, Random 105 mg/dL (28-217); Microalbum Creatinine Ratio Ur 10 mg/dL (0-20); Microalbumin Random Urine 1 ug/dL (0-20)
[2024-02-15 13:26] LABS: Estmated Average Glucose 214; Hemoglobin A1C 9.1 % (4.0-6.0)
[2024-02-15 13:28] LABS: Alanine Aminotransferase 20 U/L (0-33); Albumin Level 3.9 g/dL (3.5-5.2); Alkaline Phosphatase 99 U/L (35-105); Anion Gap 17.3 (5-19); Aspartate Amino Transferase 18 U/L (0-32); Blood Urea Nitrogen 9 mg/dL (6-20); Calcium 8.6 mg/dL (8.5-10.5); Carbon Dioxide 25 mmol/L (22-29); Chloride 103 mmol/L (98-107); Glucose 179 mg/dL (65-115); Osmolality Calculated 295 mOsm/kg (285-295); Potassium 4.3 mmol/L (3.5-5.1); Sodium 141 mmol/L (136-145); Total Bilirubin 0.2 mg/dL (0.15-1.2); Total Protein 6.9 g/dL (6.6-8.7)
[2024-02-15 13:34] LABS: Alanine Aminotransferase 19 U/L (0-33); Alkaline Phosphatase 100 U/L (35-105); Aspartate Amino Transferase 19 U/L (0-32); C Reactive Protein 14.7 mg/L (0.0-4.9); Cholesterol 151 mg/dL (0-200); Free T4 Free Thyroxine 1.16 ng/dL (0.82-1.77); Globulin 2.8 g/dL (1.3-4.6); Glomerular Filtration Rate 175.9 mL/min (90-130); HDL Cholesterol 56 mg/dL (60-100); LDL Cholesterol Calculated 38 mg/dL (50-129); LDL HDL Ratio 0.68 RATIO (0.00-3.22); Thyroid Stimulating Hormone 3.01 uIU/mL (0.27-4.20); Total Bilirubin 0.2 mg/dL (0.15-1.2); Total Protein 6.8 g/dL (6.6-8.7); Triglycerides 286 mg/dL (0-150)
== END 2024-02-15 12:39 | disposition home or self-care (01) ==
LOC: LAB 12:40
PROVIDERS: Internal Medicine Rheumatology; PCP Family Medicine; Visit Provider Internal Medicine
DX: M32.9 Systemic lupus erythematosus, unspecified (principal); E11.9 Type 2 diabetes mellitus without complications; E78.2 Mixed hyperlipidemia; E03.9 Hypothyroidism, unspecified; M79.672 Pain in left foot; M25.572 Pain in left ankle and joints of left foot; M76.62 Achilles tendinitis, left leg; M25.372 Other instability, left ankle; M76.72 Peroneal tendinitis, left leg
CPT/HCPCS: 36415; 73610; 73630; 80053; 80061; 80076; 82044; 82565; 83036; 84439; 84443; 85025; 86140; 99024

== ENCOUNTER 2024-02-18 16:08 | Emergency (ER) | payer OTHER, MEDICAID, SELFPAY ==
[2024-02-18 16:32] VITALS: BP 159/81; PULSE 84; RESP 17; TEMP 36.7; O2SAT 94; BMI 51.4
--- NOTE | 2024-02-18 17:15 | XRR_ITS ---
PROCEDURE INFORMATION: Exam: XR Chest Exam date and time: 02/18/2024 5:44 PM Age: 43 years old Clinical indication: Fever TECHNIQUE: Imaging protocol: Radiologic exam of the chest. Views: 1 view. COMPARISON: CR XR chest 1V portable [id number] 10/22/2023 4:15 PM FINDINGS: Lungs: Unremarkable. No consolidation. Pleural spaces: Unremarkable. No pleural effusion. No pneumothorax. Heart/Mediastinum: Unremarkable. No cardiomegaly. Bones/joints: Unremarkable. XR/XR chest 1V portable [id number] IMPRESSION: No acute findings.
[2024-02-18 17:41] VITALS: BP 149/82; PULSE 86; O2SAT 94
[2024-02-18] MEDS: ondansetron 2 mg/ML SDV 2 mL 4 MG IVP ×2 (17:42→19:43)
[2024-02-18] MEDS: sodium chloride 0.9% 1,000 ML 999 ML IV (17:42)
[2024-02-18 19:34] LABS: Basophils # 0.1 10^3/uL (0.0-0.1); Basophils % 0.6 %; Eosinophils # 0.1 10^3/uL (0.0-0.8); Hematocrit 33.1 % (36-47); Lymphocytes # 1.1 10^3/uL (0.8-4.8); Lymphocytes % 12.8 %; Mean Corpuscular HGB Conc 32.6 g/dL (30-55); Mean Corpuscular Hemoglobin 27.4 pg (27-33); Mean Platelet Volume 9.7 fL (7.4-10.4); Monocytes # 0.4 10^3/uL (0.2-0.9); Monocytes % 5.1 %; Neutrophils # 6.55 10^3/uL (1.8-7.7); Neutrophils % 79.5 %; Nucleated Red Blood Cells % 0 %; Platelet Count 274 10^3/cmm (157-399); Red Blood Count 3.94 10^6/uL (3.85-5.65); Red Cell Distribution Width 13.6 % (12.1-15.1); White Blood Count 8.23 10^3/uL (3.29-11.43)
[2024-02-18 19:35] LABS: Erythrocyte Sedimentation Rate 9 mm/hr (0-15)
[2024-02-18 19:50] LABS: Influenza A by IFA negative (Negative); Influenza B by IFA negative (Negative); SARS Covid-2 Antigen negative (Negative)
[2024-02-18 19:54] LABS: Alanine Aminotransferase 20 U/L (0-33); Alkaline Phosphatase 91 U/L (35-105); Aspartate Amino Transferase 17 U/L (0-32); Blood Urea Nitrogen 9 mg/dL (6-20); Calcium 8.4 mg/dL (8.5-10.5); Carbon Dioxide 24 mmol/L (22-29); Chloride 101 mmol/L (98-107); Creatinine Clr Calc Pharmacy 210.9921; Globulin 2.9 g/dL (1.3-4.6); Glucose 131 mg/dL (65-115); Osmolality Calculated 284 mOsm/kg (285-295); Sodium 137 mmol/L (136-145); Total Bilirubin 0.2 mg/dL (0.15-1.2); Total Protein 6.9 g/dL (6.6-8.7)
[2024-02-18 20:00] VITALS: BP 153/80; PULSE 76; O2SAT 94
[2024-02-18 20:01] LABS: Procalcitonin 0.06 ng/mL (0-0.5)
[2024-02-18 20:10] LABS: Add Urine Microscopic? YES; Bacteria Urine 2+ /hpf; Bilirubin Urine 1+ (Negative); Blood Urine Neg (Negative); Glucose Urine UA Norm (Normal); HCG Qualitative Urine. Negative (Negative); Ketones Urine 1+ (Negative); Leukocyte Esterase Urine Negative (Negative); Mucus Urine TRACE /hpf; Nitrate Urine Negative (Negative); Protein Urine Trace (Negative); RBC Urine 0-4 /hpf (0-2); Urine Appearance Slightly Cloudy (CLEAR); Urine Color Yellow (Yellow); Urobilinogen Urine Neg (Negative); pH Urine 6 (5-7)
[2024-02-18 20:30] VITALS: BP 147/91; PULSE 77; O2SAT 93
[2024-02-18] MEDS: cefTRIAXone 1,000 MG in sodium chloride 0.9% (plus) 50 ML 100 MG IV (20:46)
--- NOTE | 2024-02-18 20:59 | W.ED.FEVER ---
HPI - Fever General: Chief Complaint: Fever Stated Complaint: weakness, n/v, surgery site irritation Time Seen by Provider: 02/18/24 16:49 Source: patient and family Mode of arrival: ambulatory Limitations: no limitations History of Present Illness: Patient had foot surgery 2 weeks ago. Since then she been having intermittent fevers per patient. Arrives here afebrile and remains afebrile during stay. Patient reports that she has been feeling more more ill and very weak. Started having some nausea vomiting diarrhea. Is having some discharge from the foot wound. MD elicited complaint: fever Review of Systems General: Reports: 10 or more systems reviewed and unremarkable except in HPI and below PFSH ED PFSH: Medical History B12 deficiency Lung injury associated with vaping Contact dermatitis SLE (systemic lupus erythematosus related syndrome) Hypothyroidism COPD (chronic obstructive pulmonary disease) Leukocytosis Rosacea Positive double stranded DNA antibody test Labral tear of left hip joint KI (obstructive sleep apnea) Morbid obesity Bipolar 1 disorder PTSD (post-traumatic stress disorder) Hyponatremia Chronic urticaria Insomnia Mild intermittent asthma Allergic rhinitis GERD (gastroesophageal reflux disease) Shingles 4th occurrence Hyperlipemia, mixed Helicobacter pylori gastritis Mandibular fracture Diabetes mellitus Type 2 Depression Hypertension Surgical History History of mandibular surgery For mandibular fracture H/O esophagogastroduodenoscopy (09/02/21) H/O thyroidectomy S/P cholecystectomy S/P tonsillectomy and adenoidectomy S/P breast lumpectomy Right breast lumpectomy for benign disease Previous section Family History Father Hypertension Cancer testicular Cardiac abnormality Mother Congestive heart failure (CHF) COPD (chronic obstructive pulmonary disease) Diabetes Cancer ovarian and uterine Family/Other Cancer Maternal aunt- HR2 breast Other CAD (coronary artery disease) Family history of premature coronary artery disease Hyperlipidemia Lung disease Psychiatric illness Rheumatoid arthritis Stroke Denies family history of Lupus Clotting disorder Dementia Chronic kidney disease (CKD) Anesthesia complication Bleeding disorder Social History Smoking and tobacco/nicotine status: former use of tobacco/nicotine Quit status (tobacco/nicotine): has quit using Year quit tobacco: July Former quit date comment: Hx of 2 ppd X 25 years, started at age 16 yr. Alcohol intake: former Substance/Drug Use: never Adopted: No Caregiver/support person: No Lives independently: Yes Household members: spouse and family Housing: House Marital status: Number of children: 2 Number of grandchildren: 1 Highest education level completed: Some College, No Degree service: No Current occupational status: employed Current occupation: [employer] Sexually active: Yes Do you think of yourself as: Straight/Heterosexual Current gender identity: Female Balbina/Episcopalian: Congregational Special balbina needs: No Agree to transfusion: Yes Physical Exam Const: COMMON NORMALS: no acute distress, average body habitus, patient oriented x3, healthy appearing, alert and well nourished GENERAL APPEARANCE: cooperative, well kempt, well developed and other (Appears to be feeling ill) NUTRITIONAL APPEARANCE: obese HENMT: COMMON NORMALS: normocephalic, atraumatic, external ears normal and moist oral mucous membranes HEAD & SCALP: normocephalic and atraumatic EXTERNAL EAR: Yes external ears normal Eye: COMMON NORMALS: Equal, round and reactive pupils present, EOMs intact bilaterally and conjunctivae normal CONJUNCTIVA: Yes conjunctivae normal PUPIL: Yes Equal, round and reactive pupils present Neck/C-Spine: COMMON NORMALS: full ROM, no lymphadenopathy and supple Chest: CHEST: Yes Symmetrical chest wall rise and No Surgical scars present (Chest) Resp: COMMON NORMALS: normal respiratory effort, No retractions, No use of accessory muscles and clear to auscultation bilaterally AUSCULTATION: clear to auscultation bilaterally Cardio: COMMON NORMALS: regular rate, regular rhythm, S1 normal heart sound present, S2 normal heart sound present, No gallops present (Cardio), No clicks present (Cardio), No murmurs present (Cardio) and No rub (Cardio) RATE: regular rate RHYTHM: regular rhythm HEART SOUNDS: S1 normal heart sound present, S2 normal heart sound present and no murmurs PERIPHERAL PULSES: other (Radial pulses 2+ and symmetric) GI: COMMON NORMALS: Soft to palpation, non-tender and no masses INSPECTION: No abdominal distension PALPATION: Yes Soft to palpation, No Guarding due to palpation present (GI) and No Rebound tenderness present : COMMON NORMALS: Yes no CVA tenderness BLADDER/KIDNEY EXAM: Yes no CVA tenderness Back/Pelvis: COMMON NORMALS: no CVA tenderness Extremity: COMMON NORMALS: normal to inspection, full ROM, capillary refill normal and no clubbing, cyanosis or edema OTHER: Surgical wound on left ankle appears to be healing appropriately clean dry and intact except for a small amount of serous discharge. likely a small seroma underneath Neuro: COMMON NORMALS: patient oriented x3 SENSORIUM/ORIENTATION: Yes alert Psych: APPEARANCE: Yes well kempt Skin: COMMON NORMALS: no rashes or lesions noted, no wounds, turgor normal and no jaundice GENERAL SKIN EXAM: no rashes or lesions noted and turgor normal Course Vital Signs: Vital signs: Vital Signs Temperature 98.1 F 02/18/24 16:32 Pulse Rate 86 02/18/24 17:41 Respiratory Rate 17 02/18/24 16:32 Blood Pressure 149/82 02/18/24 17:41 Pulse Oximetry 94 02/18/24 17:41 Oxygen Delivery Me thod Room Air 02/18/24 16:32 MDM - Fever Medical Decision Making Patient has nausea vomiting diarrhea, also has UTI. Suspect she either has a stomach virus or a UTI but her history more lines up with intermittent fevers over 2 weeks could be UTI. Versus she is just been having hot flashes and now has an acute stomach virus. Will treat the UTI and provide nausea medicine for the nausea vomiting. Medical Records I reviewed the patient's medical records. Lab Data I reviewed the patient's lab results. 02/18/24 19:25 02/18/24 19:25 Radiology Impressions Chest X-Ray 02/18/24 17:15 IMPRESSION: No acute findings. Laboratory Results WBC 8.23 10^3/uL (3.29-11.43) 02/18/24 19:25 Corrected WBC Cancelled 02/18/24 17:30 RBC 3.94 10^6/uL (3.85-5.65) 02/18/24 19:25 Hgb 10.80 g/dL (11.27-16.99) L 02/18/24 19:25 Hct 33.1 % (36-47) L 02/18/24 19:25 MCV 84.0 fl (85-98) L 02/18/24 19:25 MCH 27.4 pg (27-33) 02/18/24 19: MCHC 32.6 g/dL (30-55) 02/18/24 19: RDW 13.6 % (12.1-15.1) 02/18/24: Plt Count 274 10^3/cmm (157-399) 02/18/24 19: MPV 9.7 fL (7.4-10.4) 02/18/24 19:25 Gran % Cancelled 02/18/24 17:30 Neut % (Auto) 79.5 % 02/18/24 19: Lymph % (Auto) 12.8 % 02/18/24 19: [place] % (Auto) 5.1 % 02/18/24: Eos % (Auto) 1.0 % 02/18/24: Baso % (Auto) 0.6 % 02/18/24: Neut # (Auto) 6.55 10^3/uL (1.8-7.7) 02/18/24: Lymph # (Auto) 1.1 10^3/uL (0.8-4.8) 02/18/24: [place] # (Auto) 0.4 10^3/uL (0.2-0.9) 02/18/24: Eos # (Auto) 0.1 10^3/uL (0.0-0.8) 02/18/24: Baso # (Auto) 0.1 10^3/uL (0.0-0.1) 02/18/24: Absolute Gran (auto) Cancelled 02/18/24 17:30 Nucleated RBC % (auto) 0 % 02/18/24: Nucleated RBCs # 0.0 /100WBC 02/18/24 19:25 ESR 9 mm/hr (0-15) 02/18/24 19:25 Sodium 137 mmol/L (136-145) 02/18/24: Potassium 4.0 mmol/L (3.5-5.1) 02/18/24: Chloride 101 mmol/L (98-107) 02/18/24: Carbon Dioxide 24 mmol/L (22-29) 02/18/24 19: Anion Gap 16.0 (5-19) 02/18/24 19:25 BUN 9 mg/dL (6-20) 02/18/24 19:25 Creatinine 0.5 mg/dL (0.5-0.9) 02/18/24 19:25 GFR Calculation 136.0 mL/min (90-130) H 02/18/24 19:25 Glucose 131 mg/dL (65-115) H 02/18/24 19:25 Calculated Osmolality 284 mOsm/kg (285-295) L 02/18/24 19:25 Calcium 8.4 mg/dL (8.5-10.5) L 02/18/24 19:25 Total Bilirubin 0.2 mg/dL (0.15-1.2) 02/18/24 19:25 AST 17 U/L (0-32) 02/18/24 19:25 ALT 20 U/L (0-33) 02/18/24 19:25 Alkaline Phosphatase 91 U/L (35-105) 02/18/24 19:25 Total Protein 6.9 g/dL (6.6-8.7) 02/18/24 19:25 Albumin 4.0 g/dL (3.5-5.2) 02/18/24 19: Globulin 2.9 g/dL (1.3-4.6) 02/18/24 19:25 Procalcitonin 0.06 ng/mL (0-0.5) 02/18/24 19:25 HCG, Qual Negative (Negative) 02/18/24 19:50 Urine Color Yellow (Yellow) 02/18/24 19:50 Urine Appearance Slightly cloudy (CLEAR) 02/18/24 19:50 Urine pH 6 (5-7) 02/18/24 19:50 Ur Specific [place] 1.020 (1.005-1.030) 02/18/24 19:50 Urine Protein Trace (Negative) 02/18/24 19:50 Urine Glucose (UA) Norm (Normal) 02/18/24 19:50 Urine Ketones 1+ (Negative) H 02/18/24 19:50 Urine Blood Neg (Negative) 02/18/24 19:50 Urine Nitrate Negative (Negative) 02/18/24 19:50 Urine Bilirubin 1+ (Negative) H 02/18/24 19:50 Urine Urobilinogen Neg mg/dL (Negative) 02/18/24 19:50 Ur Leukocyte Esterase Negative (Negative) 02/18/24 19:50 Urine RBC 0-4 /hpf (0-2) H 02/18/24 19:50 Urine WBC 5-10 /hpf (0-5) H 02/18/24 19:50 Ur Squamous Epith Cells 5-10 /hpf (0-5) H 02/18/24 19:50 Amorphous Sediment Not Reportable 02/18/24 19:50 Urine Bacteria 2+ /hpf (NONE) H 02/18/24 19:50 Urine Mucus Trace /hpf 02/18/24 19:50 Influenza Type A Ag negative (Negative) 02/18/24 19:25 Influenza Type B Ag negative (Negative) 02/18/24 19:25 SARS-CoV-2 Ag (Rapid) negative (Negative) 02/18/24 19:25 No radiology studies performed this visit Discharge Plan Discharge Patient Disposition: Home Clinical Impression: UTI (urinary tract infection), Nausea, vomiting, and diarrhea Condition: Stable Prescriptions: New nitrofurantoin monohyd/m-cryst [Macrobid] 100 mg capsule 100 mg PO BID 5 Days Qty: 10 0RF Rx Instructions: must administer with a meal/food ondansetron 4 mg tablet,disintegrating 4 mg PO Q6H PRN (Reason: nausea and vomiting) Qty: 20 0RF promethazine 25 mg tablet 25 mg PO Q4H PRN (Reason: nausea and vomiting) Qty: 20 0RF Rx Instructions: Caution drowsiness No Action trazodone 100 mg tablet 150 mg PO .hs hydroxychloroquine 200 mg tablet 200 mg PO BID Qty: 180 1RF pantoprazole [Protonix] 40 mg tablet,delayed release (DR/EC) 40 mg PO BID Qty: 180 1RF prednisone 20 mg tablet See Rx Instructions PO .COMPLEX Qty: 90 1RF Rx Instructions: Take 1 daily til feeling better then can stay on one half tab daily orally; methotrexate sodium 25 mg/mL solution 30 mg SUBCUT .Q7days Qty: 10 1RF epinephrine [EpiPen 2-Edward] 0.3 mg/0.3 mL auto-injector 0.3 mg IM Q15M PRN (Reason: anaphylaxis) Qty: 2 0RF Rx Instructions: for 2 doses Rexulti 3 mg tablet 3 mg PO DAILY mecobalamin (vitamin B12) 1,000 mcg tablet,disintegrating 1,000 mcg sublingual DAILY Qty: 30 6RF Rx Instructions: place tablet under tongue and allow to dissolve for at least30 secs before swallowing docusate sodium [Colace] 100 mg capsule 200 mg PO DAILY albuterol sulfate [Ventolin HFA] 90 mcg/actuation HFA aerosol inhaler 2 puff INHALATION Q4H PRN (Reason: Shortness Of Breath) Qty: 8.5 3RF (DME) insulin syringes (disposable) 1 mL syringe See Rx Instructions .ROUTE .MEDSUPPLY Qty: 25 1RF Rx Instructions: As directed atorvastatin 20 mg tablet 20 mg PO DAILY Qty: 90 3RF montelukast [Singulair] 10 mg tablet 10 mg PO DAILY Qty: 90 3RF oxcarbazepine [Trileptal] 600 mg tablet See Rx Instructions PO .COMPLEX Rx Instructions: Take one in am and 2 in pm orally; Januvia 100 mg tablet 100 mg PO DAILY Qty: 90 1RF (DME) knee scooter See Rx Instructions .Route .MEDSUPPLY Qty: 1 0RF Rx Instructions: As directed to HOME (DME) CAM boot See Rx Instructions .Route .MEDSUPPLY Qty: 1 0RF Rx Instructions: As directed albuterol sulfate 2.5 mg /3 mL (0.083 %) solution for nebulization 2.5 mg inhalation Q4H PRN (Reason: Shortness Of Breath) Qty: 90 3RF hydrocodone-acetaminophen 5-325 mg tablet 1 tab PO Q8H PRN (Reason: pain (scale score 7-10)) 30 Days Qty: 60 0RF hydrocodone-acetaminophen 5-325 mg tablet 1 tab PO Q8H PRN (Reason: pain (scale score 7-10)) 30 Days Qty: 21 0RF levothyroxine 200 mcg tablet 200 mcg PO DAILY Qty: 90 0RF Rx Instructions: 200mcg tue-tue, 100mcg on tuesday lisinopril 40 mg tablet 40 mg PO BEDTIME Qty: 90 2RF ondansetron 4 mg tablet,disintegrating See Rx Instructions .ROUTE .COMPLEX Qty: 60 1RF Dose Instruction: DISSOLVE ONE TABLET BY MOUTH EVERY 6 HOURS NEEDED FOR NAUSEA AND VOMITING Rx Instructions: DISSOLVE ONE TABLET BY MOUTH EVERY 6 HOURS NEEDED FOR NAUSEA AND VOMITING gabapentin 600 mg tablet 600 mg PO TID Qty: 180 1RF folic acid 1 mg tablet 1 mg PO DAILY Qty: 90 1RF hydrocodone-acetaminophen 5-325 mg tablet 1 tab PO .Q8hrs PRN (Reason: pain (scale score 7-10)) 30 Days Qty: 60 0RF azathioprine 50 mg tablet 100 mg PO BID Qty: 120 3RF cyclobenzaprine 10 mg tablet 10 mg PO Q12H Qty: 20 0RF hydrocodone-acetaminophen 10-325 mg tablet 1 tab PO Q6H 5 Days Qty: 20 0RF hydrocodone-acetaminophen 5-325 mg tablet 1 tab PO Q6H PRN (Reason: pain) 5 Days Qty: 20 0RF diphenhydramine HCl [Benadryl Allergy] 25 mg Tablet 25 - 50 mg PO PRN cholecalciferol (vitamin D3) 1,250 mcg (50,000 unit) capsule 50,000 unit PO DAILY Rx Instructions: take 1 a week hydrocodone-acetaminophen 5-325 mg tablet 1 tab PO Q6H PRN (Reason: pain) Qty: 28 0RF ziprasidone HCl 80 mg Capsule 80 mg PO BID ipratropium-albuterol 0.5 mg-3 mg(2.5 mg base)/3 mL solution for nebulization 3 ml inhalation Q8H PRN (Reason: wheezing) Qty: 90 0RF buspirone 30 mg tablet 30 mg PO BID dextroamphetamine-amphetamine 30 mg capsule,extended release 24hr 30 mg PO QAM Discharge Orders: Discharge ED (Routine); Ordered 02/18/24 Ordered By: Natan Mack Referrals: Elan Kuhn MD [Primary Care Provider] - Discharge Diet: Advance as tolerated and Usual diet Discharge Activity: Resume usual activity Patient Instructions: Urinary Tract Infection in Women (ED) Activity Restrictions/Additional Instructions: Can also picking 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 It is [id number]. Coding Level of Care Code ED City Comptroller for Chao Monsalve
[2024-02-18 21:00] VITALS: BP 148/80; PULSE 82; O2SAT 96
[2024-02-18 21:05] VITALS: BP 152/79; PULSE 83; RESP 16
[2024-02-18 21:28] LABS: Estmated Average Glucose 209; Hemoglobin A1C 8.9 % (4.0-6.0)
== END 2024-02-18 21:23 | disposition home or self-care (01) ==
PROVIDERS: Emergency Provider Emergency Medicine; PCP Family Medicine
DX: N39.0 Urinary tract infection, site not specified (principal); R11.2 Nausea with vomiting, unspecified; R19.7 Diarrhea, unspecified; Z11.52 Encounter for screening for COVID-19; Z87.891 Personal history of nicotine dependence; M32.9 Systemic lupus erythematosus, unspecified; J44.9 Chronic obstructive pulmonary disease, unspecified; E78.2 Mixed hyperlipidemia; E11.9 Type 2 diabetes mellitus without complications; I10 Essential (primary) hypertension
CPT/HCPCS: 71045; 80053; 81001; 81025; 83036; 84145; 85025; 85651; 87426; 87804; 96361; 96365; 96375; 96376; 99284; J0696; J2405; J7030

== ENCOUNTER 2024-02-23 08:30 | Oncology outpatient (recurring) (ONCR) | payer OTHER, MEDICAID, SELFPAY ==
--- NOTE | 2024-02-23 08:39 | PC.NURSE ---
informed Dr. Portillo's office that patient is currently on antibiotics for UTI. Patient is to reschedule infusion for 2 weeks after completing antibiotics.
--- NOTE | 2024-02-23 08:52 | PC.NURSE ---
Patient on antibiotics for a bladder infection. Explained we are unable to infuse medication per MD orders. PT rescheduled with education given related to conditions of infusion. PT stated understanding.
== END 2024-02-26 23:59 | disposition home or self-care (01) ==
PROVIDERS: PCP Family Medicine; Visit Provider Internal Medicine
DX: Z53.9 Procedure and treatment not carried out, unspecified reason (principal)
CPT/HCPCS: 36415; 99203

== ENCOUNTER → 2024-02-27 14:57 | Outpatient (BNVA) | payer OTHER, MEDICAID, SELFPAY | PROVIDERS: PCP Family Medicine; Visit Provider Podiatrist Foot & Ankle Surgery | DX: Z98.890 Other specified postprocedural states (principal); M76.62 Achilles tendinitis, left leg; M25.372 Other instability, left ankle; M76.72 Peroneal tendinitis, left leg | CPT/HCPCS: 99024 ==

== ENCOUNTER → 2024-03-07 10:50 | Outpatient (BNVA) | payer OTHER, MEDICAID, SELFPAY | PROVIDERS: PCP Family Medicine; Visit Provider Internal Medicine | DX: R68.82 Decreased libido; N92.4 Excessive bleeding in the premenopausal period | CPT/HCPCS: 36415; 82670; 83001; 83002; 84403 ==

== ENCOUNTER 2024-03-13 13:00 | Outpatient (CLI) | payer OTHER, MEDICAID, SELFPAY ==
--- NOTE | 2024-03-13 13:00 | MR_ITS ---
WS: [id number] MRI LUMBAR SPINE WITH AND WITHOUT CONTRAST HISTORY: Back pain for several years. COMPARISON: MRI 07/14/2022 TECHNIQUE: Sagittal and axial multisequence imaging is submitted. Postcontrast imaging MultiHance 20 mL IV. Normal lumbar alignment with no compression fractures or marrow edema. Disc spaces and vertebral body heights are well-preserved. Conus terminates normally at L1-2 disc level. L1-L2: Normal. L2-L3: Mild bilateral facet arthritis. L3-L4: Mild annular disc bulging with ligamentum flavum and facet arthritis. Mild subarticular recess and foraminal encroachment as noted on the prior exam. L4-L5: Mild annular disc bulging with moderate to severe facet joint arthritis similar to the prior s tudy. Increased fluid widening of the LEFT facet joint up to 4 mm with progression since the prior st udy. There is mild central and bilateral subarticular recess stenosis. Moderate to severe LEFT forami nal and moderate RIGHT foraminal stenosis. L5-S1: Mild annular disc bulging with facet disease. Mild bilateral foraminal stenosis, RIGHT greater than LEFT. No discitis or osteomyelitis. No mass. The facet joint enhancement centered at L4-5 described on 06/29 persists but has improved. Fatty atrophy of the RIGHT paraspinal muscles. MR/MR lumbar spine wo/w con [id number] IMPRESSION: 1. Mild improvement in acute synovitis involving the facet joints at L4-5 sinc e 07/14/2022. 2. L4-5: Moderate to severe facet joint arthritis similar to the prior study. There has been an increase in the amount of fluid in the LEFT facet joint with increasing foraminal stenosis. There is now moderate to severe LEFT and moderat e RIGHT foraminal stenosis. 3. L3-4: Mild subarticular recess and foraminal stenosis. 4. Mild bilateral foraminal stenosis at L5-S1. 5. No discitis or osteomyelitis.
--- NOTE | 2024-03-13 13:45 | MR_ITS ---
WS: [id number] MRA ANGIOGRAPHY [place] OF [place] HISTORY: R56.9 - Unspecified convulsions COMPARISON: None available. TECHNIQUE: 3-D MR angiography is performed of the upper [place] of [place]. All images are reviewed including source images. Very small caliber distal but patent RIGHT vertebral artery. Dominant LEFT vertebral artery. Normal b asilar artery. Posterior communicating arteries are both identified but very small caliber. Posterior cerebral arteries normal course and size. Intracranial portion of the internal carotid arteries are normal course and caliber. No significant a therosclerosis, stenosis or aneurysm identified. Middle and anterior cerebral arteries are both paten t with no significant disease. Anterior communicating artery is also normal. MR/MR angio head wo con [id number] IMPRESSION: 1. No cerebral artery aneurysms. No occlusions. 2. Small caliber distal RIGHT vertebral artery. 3. Small caliber posterior communicating arteries.
[2024-03-13] MEDS: gadobenate dimeglumine 20 mL vial IV (13:55)
== END 2024-03-13 13:00 | disposition home or self-care (01) ==
PROVIDERS: PCP Family Medicine; Visit Provider Orthopaedic Surgery
DX: M47.896 Other spondylosis, lumbar region (principal); M65.88 Other synovitis and tenosynovitis, other site; M48.061 Spinal stenosis, lumbar region without neurogenic claudication; M48.07 Spinal stenosis, lumbosacral region; G12.9 Spinal muscular atrophy, unspecified; R56.9 Unspecified convulsions
CPT/HCPCS: 70544; 72158; A9577

== ENCOUNTER 2024-03-26 07:48 | Oncology outpatient (recurring) (ONCR) | payer OTHER, MEDICAID, SELFPAY ==
[2024-03-26 08:15] VITALS: BP 136/84; PULSE 70; RESP 16; TEMP 36.6; O2SAT 98
[2024-03-26] MEDS: sodium chloride 0.9% 250 ML 75 ML IV (09:05)
[2024-03-26] MEDS: cosyntropin 0.25 mg SDV IVP (09:06)
[2024-03-26 09:20] LABS: Cosyntropin Baseline 11.11 mcg/dL
[2024-03-26 09:47] VITALS: BP 157/96; PULSE 94; RESP 17; O2SAT 97
[2024-03-26 10:24] LABS: Cosyntropin 30 Minute 31.21 mcg/dL
[2024-03-26 11:15] LABS: Cosyntropin 1 Hour 40.71 mcg/dL
--- NOTE | 2024-03-26 16:10 | PC.NURSE ---
PT discharged home from ER. No infusion today. DR. Portillo notified of reaction and rescheduled infusion per order.
== END 2024-03-28 23:59 | disposition home or self-care (01) ==
PROVIDERS: Internal Medicine; PCP Family Medicine; Visit Provider Internal Medicine
DX: R79.89 Other specified abnormal findings of blood chemistry (principal); Z79.899 Other long term (current) drug therapy
CPT/HCPCS: 36415; 82533; 96375; J0834; J7050

== ENCOUNTER 2024-03-26 10:02 | Emergency (ER) | payer OTHER, MEDICAID, SELFPAY ==
[2024-03-26 10:06] VITALS: BP 154/110; PULSE 95; RESP 17; TEMP 36.6; O2SAT 98; BMI 53.2
--- NOTE | 2024-03-26 10:25 | W.ED.ALLEREA ---
HPI - Allergic Reaction General: Chief complaint: Allergic Reaction Stated complaint: possible allergic reaction, onc brought her Time Seen by Provider: 03/26/24 10:08 Source: patient Mode of arrival: wheelchair Limitations: no limitations History of Present Illness: HPI narrative: Patient is a 43-year-old female presents to ED today from the infusion center for evaluation of an allergic reaction. Patient was receiving her cosyntropin stimulation test that was ordered by her roll changer Dr. Harris when she began feeling flushed, dizzy and states her body felt heavy. Infusion center RN brought patient to the emergency department for further evaluation. Patient states she has had her baseline and 30-minute cortisol levels drawn but she is still due for her 60-minute. She arrives in no acute distress apart from facial flushing. She states she normally has some degree of facial flushing from her lupus. She is not complaining of shortness of breath or difficulty breathing. MD complaint: allergic reaction Onset (ago): hour(s) Exposure: medication Associated symptoms: Reports dizziness; Deny nausea Severity: moderate Treatment prior to arrival: none Previous Allergic Reaction History: none Review of Systems Const: Denies: fever(s), chills, body aches, fatigue or malaise Eyes: Denies: change in vision, photophobia, floaters or seeing flashes ENMT: Denies: throat pain, odynophagia or swelling of lips/tongue Card: Denies: chest pain Resp: Denies: dyspnea GI: Denies: nausea Musc: Denies: neck pain, back pain, extremity pain or joint pain Skin/Breast: Reports: other (facial flushing) Neuro: Reports: dizziness; Denies: headache(s), numbness in extremities, weakness in extremities or sensory changes [facility] PFSH: Medical History B12 deficiency Lung injury associated with vaping Contact dermatitis SLE (systemic lupus erythematosus related syndrome) Hypothyroidism COPD (chronic obstructive pulmonary disease) Leukocytosis Rosacea Positive double stranded DNA antibody test Labral tear of left hip joint KI (obstructive sleep apnea) Morbid obesity Bipolar 1 disorder PTSD (post-traumatic stress disorder) Hyponatremia Chronic urticaria Insomnia Mild intermittent asthma Allergic rhinitis GERD (gastroesophageal reflux disease) Shingles 4th occurrence Hyperlipemia, mixed Helicobacter pylori gastritis Mandibular fracture Diabetes mellitus Type 2 Depression Hypertension Surgical History History of mandibular surgery For mandibular fracture H/O esophagogastroduodenoscopy (09/02/21) H/O thyroidectomy S/P cholecystectomy S/P tonsillectomy and adenoidectomy S/P breast lumpectomy Right breast lumpectomy for benign disease Previous section Family History Father Hypertension Cancer testicular Cardiac abnormality Mother Congestive heart failure (CHF) COPD (chronic obstructive pulmonary disease) Diabetes Cancer ovarian and uterine Family/Other Cancer Maternal aunt- HR2 breast Other CAD (coronary artery disease) Family history of premature coronary artery disease Hyperlipidemia Lung disease Psychiatric illness Rheumatoid arthritis Stroke Denies family history of Lupus Clotting disorder Dementia Chronic kidney disease (CKD) Anesthesia complication Bleeding disorder Social History Smoking and tobacco/nicotine status: never used tobacco/nicotine Quit status (tobacco/nicotine): has quit using Year quit tobacco: July Former quit date comment: Hx of 2 ppd X 25 years, started at age 16 yr. 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 [employer] Sexually active: Yes Do you think of yourself as: Straight/Heterosexual Current gender identity: Female Balbina/Yazdanism: Mosque Special balbina needs: No Agree to transfusion: Yes Physical Exam Const: COMMON NORMALS: no acute distress, patient oriented x3, no limitations, alert and well nourished GENERAL APPEARANCE: cooperative NUTRITIONAL APPEARANCE: obese morbidly obese (BMI if 53.3) ORIENTATION/CONSCIOUSNESS: Yes awake, Yes oriented to person, Yes oriented to place and Yes oriented to time HENMT: FACE & SINUS: normal facial exam and other (facial flushing) MOUTH: Normal oral and palatal mucosa present, lip normal, tongue normal and other (no angioedema) THROAT: posterior oropharynx normal Neck/C-Spine: GENERAL: Yes normal visual inspection Resp: COMMON NORMALS: normal respiratory effort and clear to auscultation bilaterally AUSCULTATION: clear to auscultation bilaterally Cardio: COMMON NORMALS: regular rate and regular rhythm RATE: regular rate RHYTHM: regular rhythm GI: COMMON NORMALS: Normal to inspection, nondistended, normoactive bowel sounds present Extremity: GENERAL: Yes normal exam except as noted Neuro: MICHEAL COMA SCALE: document GCS findings [place] coma scale eye opening: Spontaneous [place] coma scale verbal response: Orientated [place] coma scale motor response: Obey commands Micheal coma scale total score: 15 COMMON NORMALS: patient oriented x3 SENSORIUM/ORIENTATION: Yes alert, Yes oriented to person, Yes oriented to place and Yes oriented to time Skin: COMMON NORMALS: no rashes or lesions noted NARRATIVE SKIN EXAM: apart from facial flushing GENERAL SKIN EXAM: no rashes or lesions noted Course Vital Signs: Vital signs: Vital Signs Temperature 97.8 F 03/26/24 11:57 Pulse Rate 95 03/26/24 11:57 Respiratory Rate 17 03/26/24 11:57 Blood Pressure 154/110 03/26/24 11:57 Pulse Oximetry 98 03/26/24 11:57 Oxygen Delivery Me thod Room Air 03/26/24 10:06 MDM - Allergic Reaction Medical Decision Making Patient was able to have her 60-minute cortisol level drawn here prior to any medications administered. Following this she was given medications to help treat an allergic reaction. At time of re-examination, she tells me she feels like her facial flushing has improved. She does report still feeling heavy . She has remained stable during her entire ER stay and I feel she can safely be discharged. Return ED precautions given. Differential Diagnosis Likely allergic reaction and adverse reaction to drug Medical Records I reviewed the patient's medical records. No radiology studies performed this visit Discharge Plan Discharge Patient Disposition: Home Clinical Impression: Allergic reaction Qualifiers: Encounter type: initial encounter Qualified Code(s): T78.40XA - Allergy, unspecified, initial encounter Condition: Stable Prescriptions: No Action trazodone 100 mg tablet 150 mg PO .hs hydroxychloroquine 200 mg tablet 200 mg PO BID Qty: 180 1RF pantoprazole [Protonix] 40 mg tablet,delayed release (DR/EC) 40 mg PO BID Qty: 180 1RF prednisone 20 mg tablet See Rx Instructions PO .COMPLEX Qty: 90 1RF Rx Instructions: Take 1 daily til feeling better then can stay on one half tab daily orally; epinephrine [EpiPen 2-Edward] 0.3 mg/0.3 mL auto-injector 0.3 mg IM Q15M PRN (Reason: anaphylaxis) Qty: 2 0RF Rx Instructions: for 2 doses Rexulti 3 mg tablet 3 mg PO DAILY mecobalamin (vitamin B12) 1,000 mcg tablet,disintegrating 1,000 mcg sublingual DAILY Qty: 30 6RF Rx Instructions: place tablet under tongue and allow to dissolve for at least30 secs before swallowing doxycycline hyclate 100 mg capsule 100 mg PO BID Qty: 14 0RF Ozempic 1 mg/dose (4 mg/3 mL) pen injector 1 mg SUBCUT Q7D Qty: 3 1RF Ozempic 0.25 mg or 0.5 mg (2 mg/3 mL) pen injector 0.25 mg SUBCUT Q7D 30 Days Qty: 3 0RF Rx Instructions: 0.25mg weekly for one month Ozempic 0.25 mg or 0.5 mg (2 mg/3 mL) pen injector 0.5 mg SUBCUT Q7D 30 Days Qty: 3 0RF Rx Instructions: 5mg weekly for one month levothyroxine 200 mcg tablet 200 mcg PO DAILY Qty: 90 1RF Rx Instructions: one tab daily docusate sodium [Colace] 100 mg capsule 200 mg PO DAILY albuterol sulfate [Ventolin HFA] 90 mcg/actuation HFA aerosol inhaler 2 puff INHALATION Q4H PRN (Reason: Shortness Of Breath) Qty: 8.5 3RF (DME) insulin syringes (disposable) 1 mL syringe See Rx Instructions .ROUTE .MEDSUPPLY Qty: 25 1RF Rx Instructions: As directed atorvastatin 20 mg tablet 20 mg PO DAILY Qty: 90 3RF montelukast [Singulair] 10 mg tablet 10 mg PO DAILY Qty: 90 3RF oxcarbazepine [Trileptal] 600 mg tablet See Rx Instructions PO .COMPLEX Rx Instructions: Take one in am and 2 in pm orally; (DME) knee scooter See Rx Instructions .Route .MEDSUPPLY Qty: 1 0RF Rx Instructions: As directed to HOME (DME) CAM boot See Rx Instructions .Route .MEDSUPPLY Qty: 1 0RF Rx Instructions: As directed albuterol sulfate 2.5 mg /3 mL (0.083 %) solution for nebulization 2.5 mg inhalation Q4H PRN (Reason: Shortness Of Breath) Qty: 90 3RF lisinopril 40 mg tablet 40 mg PO BEDTIME Qty: 90 2RF ondansetron 4 mg tablet,disintegrating See Rx Instructions .ROUTE .COMPLEX Qty: 60 1RF Dose Instruction: DISSOLVE ONE TABLET BY MOUTH EVERY 6 HOURS NEEDED FOR NAUSEA AND VOMITING Rx Instructions: DISSOLVE ONE TABLET BY MOUTH EVERY 6 HOURS NEEDED FOR NAUSEA AND VOMITING gabapentin 600 mg tablet 600 mg PO TID Qty: 180 1RF folic acid 1 mg tablet 1 mg PO DAILY Qty: 90 1RF azathioprine 50 mg tablet 100 mg PO BID Qty: 120 3RF cyclobenzaprine 10 mg tablet 10 mg PO Q12H Qty: 20 0RF methotrexate sodium 25 mg/mL solution 30 mg SUBCUT .Q7days Qty: 10 1RF hydrocodone-acetaminophen 5-325 mg tablet 1 tab PO .Q8hrs PRN (Reason: pain (scale score 7-10)) 30 Days Qty: 60 0RF diphenhydramine HCl [Benadryl Allergy] 25 mg Tablet 25 - 50 mg PO PRN cholecalciferol (vitamin D3) 1,250 mcg (50,000 unit) capsule 50,000 unit PO DAILY Rx Instructions: take 1 a week ziprasidone HCl 80 mg Capsule 80 mg PO BID ipratropium-albuterol 0.5 mg-3 mg(2.5 mg base)/3 mL solution for nebulization 3 ml inhalation Q8H PRN (Reason: wheezing) Qty: 90 0RF buspirone 30 mg tablet 30 mg PO BID dextroamphetamine-amphetamine 30 mg capsule,extended release 24hr 30 mg PO QAM ondansetron 4 mg tablet,disintegrating 4 mg PO Q6H PRN (Reason: nausea and vomiting) Qty: 20 0RF promethazine 25 mg tablet 25 mg PO Q4H PRN (Reason: nausea and vomiting) Qty: 20 0RF Rx Instructions: Caution drowsiness Discharge Orders: Discharge ED (Routine); Ordered 03/26/24 Ordered By: Roxanne Dumont Referrals: Elan Kuhn MD [Primary Care Provider] - Patient Instructions: Allergic Reaction Activity Restrictions/Additional Instructions: As we discussed you need to return to the emergency department for shortness of breath, difficulty breathing, swelling to your lips or tongue, rash, abdominal pain/vomiting/diarrhea, or any other concerns you may have. Coding Level of Care Code ED Field Contact Technician for Chao Monsalve
[2024-03-26] MEDS: famotidine 20 mg/2 mL INJ 40 MG IVP (10:39)
[2024-03-26] MEDS: diphenhydrAMINE 50 mg/mL SDV 1mL IVP (10:39)
[2024-03-26] MEDS: methylPREDNISolone sod succ 125 mg/2 mL INJ 80 MG IVP (11:28)
[2024-03-26 11:57] VITALS: BP 154/110; PULSE 95; RESP 17; TEMP 36.6; O2SAT 98
== END 2024-03-26 11:56 | disposition home or self-care (01) ==
PROVIDERS: Emergency Provider Physician Assistant; PCP Family Medicine
DX: T78.40XA Allergy, unspecified, initial encounter (principal); Z79.85 Long-term (current) use of injectable non-insulin antidiabetic drugs; Z87.891 Personal history of nicotine dependence; M32.9 Systemic lupus erythematosus, unspecified; J44.9 Chronic obstructive pulmonary disease, unspecified; E78.2 Mixed hyperlipidemia; E11.9 Type 2 diabetes mellitus without complications; I10 Essential (primary) hypertension; X58.XXXA Exposure to other specified factors, initial encounter
CPT/HCPCS: 96374; 96375; 99284; J1200; J2919; J3490

== ENCOUNTER → 2024-03-27 15:11 | Outpatient (BNVA) | payer OTHER, MEDICAID, SELFPAY | PROVIDERS: PCP Family Medicine; Visit Provider Orthopaedic Surgery | DX: M43.16 Spondylolisthesis, lumbar region (principal) | CPT/HCPCS: 99214 ==

== ENCOUNTER → 2024-03-28 13:42 | Outpatient (BNVA) | payer OTHER, MEDICAID, SELFPAY | PROVIDERS: PCP Family Medicine; Visit Provider Internal Medicine Rheumatology | DX: Z09 Encounter for follow-up examination after completed treatment for conditions other than malignant neoplasm (principal); R76.8 Other specified abnormal immunological findings in serum; L71.9 Rosacea, unspecified; J96.01 Acute respiratory failure with hypoxia; G47.33 Obstructive sleep apnea (adult) (pediatric); M32.9 Systemic lupus erythematosus, unspecified; L25.9 Unspecified contact dermatitis, unspecified cause; U07.0 Vaping-related disorder | CPT/HCPCS: 99215 ==

== ENCOUNTER 2024-03-29 12:47 | Oncology outpatient (recurring) (ONCR) | payer OTHER, MEDICAID, SELFPAY ==
[2024-03-29 13:09] VITALS: BP 144/91; PULSE 108; RESP 22; TEMP 36.5; O2SAT 97
[2024-03-29] MEDS: sodium chloride 0.9% 250 ML 75 ML IV (13:42)
[2024-03-29] MEDS: acetaminophen 325 mg Tablet 650 MG PO (13:42)
[2024-03-29] MEDS: diphenhydrAMINE 50 mg/mL SDV 1mL 25 MG IVP (13:48)
[2024-03-29] MEDS: methylPREDNISolone sod succ 40 mg/mL INJ IVP (13:51)
[2024-03-29] MEDS: anifrolumab-fnia 300 MG in sodium chloride 0.9% (100 ml) 100 ML 204 MG IV (14:10)
[2024-03-29 14:48] VITALS: BP 118/73; PULSE 92; RESP 18; TEMP 36.7; O2SAT 96
== END 2024-04-28 23:59 | disposition home or self-care (01) ==
PROVIDERS: PCP Family Medicine; Visit Provider Internal Medicine
DX: M32.9 Systemic lupus erythematosus, unspecified (principal); Z79.899 Other long term (current) drug therapy
CPT/HCPCS: 71045; 80053; 85025; 94640; 96365; 96374; 96375; 99284; A4222; J0491; J1200; J2919; J3490; J7050; J7613

== ENCOUNTER 2024-03-29 15:14 | Emergency (ER) | payer OTHER, MEDICAID, SELFPAY ==
[2024-03-29 15:21] VITALS: BP 189/130; PULSE 99; RESP 22; TEMP 36.6; O2SAT 96; BMI 53.2
--- NOTE | 2024-03-29 15:42 | XRR_ITS ---
PROCEDURE INFORMATION: Exam: XR Chest Exam date and time: 03/29/2024 3:57 PM Age: 43 years old Clinical indication: Shortness of breath; Prior surgery; Surgery date: 6+ months; Surgery type: Gb, lumpectomy; Patient HX: Allergic reaction, difficulty breathing x 1 day; Additional info: Dyspnea/cough TECHNIQUE: Imaging protocol: Radiologic exam of the chest. Views: 1 view. COMPARISON: CR (CHEST, ) 02/18/2024 5:44 PM FINDINGS: Lungs: Unremarkable. No consolidation. Pleural spaces: Unremarkable. No pleural effusion. No pneumothorax. Heart/Mediastinum: Heart appears borderline enlarged on this portable chest, unchanged. Diaphragm: There is mild elevation of the right hemidiaphragm secondary to diaphragmatic eventration unchanged.. Bones/joints: Unremarkable for age. XR/XR chest 1V portable [id number] IMPRESSION: Stable chest. No active disease.
--- NOTE | 2024-03-29 15:43 | ED_ITS ---
HPI - Allergic Reaction 2 General: Chief complaint: Allergic Reaction Stated complaint: Allergic Reaction Time Seen by Provider: 03/29/24 15:31 History of Present Illness: HPI narrative: 43-year-old female presents to the emerg ency room complaining of allergic reaction. She is at the infusion center she been premedicated with 25 of Benadryl and 40 Solu-Medrol received an infusion of anifrolumab, after which she began to have reaction. She is advised take Benadryl she will follicles getting worse she presented to the emergency room. She has rash developing on her extremities and her chest and back. Associated symptoms: Deny abdominal pain Review of Systems 2 Const: Denies: fever(s) or chills Card: Denies: chest pain Resp: Reports: dyspnea GI: Denies: abdominal pain : Denies: dysuria, urinary frequency or urinary urgency Musc: Denies: neck pain or back pain Skin/Breast: Reports: rash, pruritus and erythema PFSH ED 2 PFSH: Medical History B12 deficiency Lung injury associated with vaping Contact dermatitis SLE (systemic lupus erythematosus related syndrome) Hypothyroidism COPD (chronic obstructive pulmonary disease) Leukocytosis Rosacea Positive double stranded DNA antibody test Labral tear of left hip joint KI (obstructive sleep apnea) Morbid obesity Bipolar 1 disorder PTSD (post-traumatic stress disorder) Hyponatremia Chronic urticaria Insomnia Mild intermittent asthma Allergic rhinitis GERD (gastroesophageal reflux disease) Shingles 4th occurrence Hyperlipemia, mixed Helicobacter pylori gastritis Mandibular fracture Diabetes mellitus Type 2 Depression Hypertension Surgical History History of mandibular surgery For mandibular fracture H/O esophagogastroduodenoscopy (09/02/21) H/O thyroidectomy S/P cholecystectomy S/P tonsillectomy and adenoidectomy S/P breast lumpectomy Right breast lumpectomy for benign disease Previous section Family History Father Hypertension Cancer testicular Cardiac abnormality Mother Congestive heart failure (CHF) COPD (chronic obstructive pulmonary disease) Diabetes Cancer ovarian and uterine Family/Other Cancer Maternal aunt- HR2 breast Other CAD (coronary artery disease) Family history of premature coronary artery disease Hyperlipidemia Lung disease Psychiatric illness Rheumatoid arthritis Stroke Denies family history of Lupus Clotting disorder Dementia Chronic kidney disease (CKD) Anesthesia complication Bleeding disorder Social History Smoking and tobacco/nicotine status: current every day tobacco/nicotine user e- cigarettes Quit status (tobacco/nicotine): has quit using Year quit tobacco: July Former quit date comment: Hx of 2 ppd X 25 years, started at age 16 yr. 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 [employer] Sexually active: Yes Do you think of yourself as: Straight/Heterosexual Current gender identity: Female Balbina/Methodist: Anabaptist Special balbina needs: No Agree to transfusion: Yes Physical Exam 2 Const: GENERAL APPEARANCE: cooperative and anxious O RIENTATION/CONSCIOUSNESS: Yes awake, Yes oriented to person, Yes oriented to place and Yes oriented to time HENMT: COMMON NORMALS: normocephalic, atraumatic and hearing grossly normal bilaterally HEAD & SCALP: normocephalic and atraumatic Resp: COMMON NORMALS: normal respiratory effort, No retractions, No use of accessory muscles and clear to auscultation bilaterally AUSCULTATION: clear to auscultation bilaterally OTHER: No stridor Cardio: COMMON NORMALS: regular rate, regular rhythm and No murmurs present (Cardio) RATE: regular rate RHYTHM: regular rhythm GI: COMMON NORMALS: Soft to palpation and No hepatosplenomegaly present A USCULTATION: Yes normoactive bowel sounds PALPATION: Yes Soft to palpation, No Tenderness to palpation present (GI), No Guarding due to palpation present (GI) and Yes No hepatosplenomegaly present Extremity: COMMON NORMALS: normal to inspection, capillary refill normal, no clubbing, cyanosis or edema, no calf tenderness and no pedal edema Neuro: SENSORIUM/ORIENTATION: Yes oriented to person, Yes oriented to place and Yes oriented to time Skin: OTHER: Red raised urticarial rash on extremities and trunk. Flushing in the face. Course 2 Vital Signs: Vital signs: Vital Signs Temperature 97.8 F 08/01/24 15:21 Pulse Rate 91 03/29/24 18:18 Respiratory Rate 18 03/29/24 18:18 Blood Pressure 175/90 03/29/24 18:18 Pulse Oximetry 98 03/29/24 18:18 Oxygen Delivery Me thod Room Air 03/29/24 18:16 MDM - Allergic Reaction Medical Decision Making Patient presents with allergic reaction to infusion 19 fusion syndrome she was premedicated with Solu-Medrol and a low-dose of Benadryl she was given more steroids and Benadryl and observed. Had significant improvement discharged home on cetirizine 10 mg twice daily for the next 7 days. Prednisone taper. Recheck for any worsening or change symptoms development of worsening shortness of breath. Medical Records I reviewed the patient's medical records. Lab Data I reviewed the patient's lab results. 03/29/24 15:16 03/29/24 15:16 Radiology Impressions Chest X-Ray 03/29/24 15:42 IMPRESSION: Stable chest. No active disease. Laboratory Results WBC 12.51 10^3/uL (3.29-11.43) H 03/29/24 15:16 RBC 4.35 10^6/uL (3.85-5.65) 03/29/24 15:16 Hgb 12.20 g/dL (11.27-16.99) 03/29/24 15:16 Hct 36.3 % (36-47) 03/29/24 15:16 MCV 83.4 fl (85-98) L 03/29/24 15:16 MCH 28.0 pg (27-33) 03/29/24 15:16 MCHC 33.6 g/dL (30-55) 03/29/24 15:16 RDW 13.6 % (12.1-15.1) 03/29/24 15:16 Plt Count 361 10^3/cmm (157-399) 03/29/24 15:16 MPV 9.8 fL (7.4-10.4) 03/29/24 15:16 Neut % (Auto) 80.8 % 03/29/24 15:16 Lymph % (Auto) 10.9 % 03/29/24 15:16 Cache % (Auto) 5.8 % 03/29/24 15:16 Eos % (Auto) 0.3 % 03/29/24 15:16 Baso % (Auto) 0.4 % 03/29/24 15:16 Neut # (Auto) 10.10 10^3/uL (1.8-7.7) H 03/29/24 15:16 Lymph # (Auto) 1.4 10^3/uL (0.8-4.8) 03/29/24 15:16 Cache # (Auto) 0.7 10^3/uL (0.2-0.9) 03/29/24 15:16 Eos # (Auto) 0.0 10^3/uL (0.0-0.8) 03/29/24 15:16 Baso # (Auto) 0.1 10^3/uL (0.0-0.1) 03/29/24 15:16 Nucleated RBC % (auto) 0 % 03/29/24 15:16 Nucleated RBCs # 0.0 /100WBC 03/29/24 15:16 Sodium 128 mmol/L (136-145) L 03/29/24 15:16 Potassium 4.4 mmol/L (3.5-5.1) 03/29/24 15:16 Chloride 93 mmol/L (98-107) L 03/29/24 15:16 Carbon Dioxide 22 mmol/L (22-29) 03/29/24 15:16 Anion Gap 17.4 (5-19) 03/29/24 15:16 BUN 15 mg/dL (6-20) 03/29/24 15:16 Creatinine 0.5 mg/dL (0.5-0.9) 03/29/24 15:16 GFR Calculation 136.0 mL/min (90-130) H 03/29/24 15:16 Glucose 259 mg/dL (65-115) H 03/29/24 15:16 Calculated Osmolality 276 mOsm/kg (285-295) L 03/29/24 15:16 Calcium 9.2 mg/dL (8.5-10.5) 03/29/24 15:16 Total Bilirubin 0.2 mg/dL (0.15-1.2) 03/29/24 15:16 AST 17 U/L (0-32) 03/29/24 15:16 ALT 15 U/L (0-33) 03/29/24 15:16 Alkaline Phosphatase 102 U/L (35-105) 03/29/24 15:16 Total Protein 7.7 g/dL (6.6-8.7) 03/29/24 15:16 Albumin 4.4 g/dL (3.5-5.2) 03/29/24 15:16 Globulin 3.3 g/dL (1.3-4.6) 03/29/24 15:16 All radiology interpretation(s) finalized by discharge Discharge Plan Discharge Patient Disposition: Home Clinical Impression: Adverse reaction to drug Condition: Stable Prescriptions: New prednisone 20 mg tablet 20 mg PO TID Qty: 15 0RF Rx Instructions: 1 p.o. 3 times daily x3 days, 1 p.o. twice daily x2 days, 1 p.o. daily x2 days cetirizine 10 mg tablet 10 mg PO BID Qty: 60 0RF No Action trazodone 100 mg tablet 150 mg PO .hs pantoprazole [Protonix] 40 mg tablet,delayed release (DR/EC) 40 mg PO BID Qty: 180 1RF prednisone 20 mg tablet See Rx Instructions PO .COMPLEX Qty: 90 1RF Rx Instructions: Take 1 daily til feeling better then can stay on one half tab daily orally; azathioprine 50 mg tablet 100 mg PO BID Qty: 120 4RF hydroxychloroquine 200 mg tablet 200 mg PO BID Qty: 180 1RF prednisone 5 mg tablet 5 mg PO DAILY Qty: 90 1RF epinephrine [EpiPen 2-Edward] 0.3 mg/0.3 mL auto-injector 0.3 mg IM Q15M PRN (Reason: anaphylaxis) Qty: 2 0RF Rx Instructions: for 2 doses Rexulti 3 mg tablet 3 mg PO DAILY mecobalamin (vitamin B12) 1,000 mcg tablet,disintegrating 1,000 mcg sublingual DAILY Qty: 30 6RF Rx Instructions: place tablet under tongue and allow to dissolve for at least30 secs before swallowing doxycycline hyclate 100 mg capsule 100 mg PO BID Qty: 14 0RF Ozempic 1 mg/dose (4 mg/3 mL) pen injector 1 mg SUBCUT Q7D Qty: 3 1RF Ozempic 0.25 mg or 0.5 mg (2 mg/3 mL) pen injector 0.25 mg SUBCUT Q7D 30 Days Qty: 3 0RF Rx Instructions: 0.25mg weekly for one month Ozempic 0.25 mg or 0.5 mg (2 mg/3 mL) pen injector 0.5 mg SUBCUT Q7D 30 Days Qty: 3 0RF Rx Instructions: 5mg weekly for one month levothyroxine 200 mcg tablet 200 mcg PO DAILY Qty: 90 1RF Rx Instructions: one tab daily docusate sodium [Colace] 100 mg capsule 200 mg PO DAILY albuterol sulfate [Ventolin HFA] 90 mcg/actuation HFA aerosol inhaler 2 puff INHALATION Q4H PRN (Reason: Shortness Of Breath) Qty: 8.5 3RF (DME) insulin syringes (disposable) 1 mL syringe See Rx Instructions .ROUTE .MEDSUPPLY Qty: 25 1RF Rx Instructions: As directed atorvastatin 20 mg tablet 20 mg PO DAILY Qty: 90 3RF montelukast [Singulair] 10 mg tablet 10 mg PO DAILY Qty: 90 3RF oxcarbazepine [Trileptal] 600 mg tablet See Rx Instructions PO .COMPLEX Rx Instructions: Take one in am and 2 in pm orally; albuterol sulfate 2.5 mg /3 mL (0.083 %) solution for nebulization 2.5 mg inhalation Q4H PRN (Reason: Shortness Of Breath) Qty: 90 3RF lisinopril 40 mg tablet 40 mg PO BEDTIME Qty: 90 2RF ondansetron 4 mg tablet,disintegrating See Rx Instructions .ROUTE .COMPLEX Qty: 60 1RF Dose Instruction: DISSOLVE ONE TABLET BY MOUTH EVERY 6 HOURS NEEDED FOR NAUSEA AND VOMITING Rx Instructions: DISSOLVE ONE TABLET BY MOUTH EVERY 6 HOURS NEEDED FOR NAUSEA AND VOMITING gabapentin 600 mg tablet 600 mg PO TID Qty: 180 1RF hydrocodone-acetaminophen 5-325 mg tablet 1 tab PO .Q8hrs PRN (Reason: pain (scale score 7-10)) 30 Days Qty: 60 0RF diphenhydramine HCl [Benadryl Allergy] 25 mg Tablet 25 - 50 mg PO PRN cholecalciferol (vitamin D3) 1,250 mcg (50,000 unit) capsule 50,000 unit PO DAILY Rx Instructions: take 1 a week ziprasidone HCl 80 mg Capsule 80 mg PO BID ipratropium-albuterol 0.5 mg-3 mg(2.5 mg base)/3 mL solution for nebulization 3 ml inhalation Q8H PRN (Reason: wheezing) Qty: 90 0RF buspirone 30 mg tablet 30 mg PO BID dextroamphetamine-amphetamine 30 mg capsule,extended release 24hr 30 mg PO QAM ondansetron 4 mg tablet,disintegrating 4 mg PO Q6H PRN (Reason: nausea and vomiting) Qty: 20 0RF Discharge Orders: Discharge ED (Routine); Ordered 03/29/24 Ordered By: David Wallace Referrals: Elan Kuhn MD [Primary Care Provider] - Discharge Diet: Usual diet Discharge Activity: Resume usual activity Patient Instructions: Opioid Safety, Pain Management Activity Restrictions/Additional Instructions: Thank you for choosing [facility] for your healthcare needs today. It is very important that you follow up as instructed or that you return to the Emergency Department should you have concerns or if your condition changes or worsens in any way. You were seen today for a adverse reaction to medication. This improved after you were given steroids and antihistamines. Recommend starting the oral steroid taper tomorrow. Additionally you can use cetirizine 10 mg twice a day for the next 7 days. Resume your usual dose of prednisone after you finish this current taper. Follow-up with your primary care doctor as needed. Coding Level of Care Code ED Felt Pad Cutter for Chao Monsalve
[2024-03-29] MEDS: methylPREDNISolone sod succ 125 mg/2 mL INJ IVP (15:49)
[2024-03-29] MEDS: famotidine 20 mg/2 mL INJ 40 MG IVP (15:49)
[2024-03-29 15:50] LABS: Basophils # 0.1 10^3/uL (0.0-0.1); Basophils % 0.4 %; Eosinophils % 0.3 %; Hematocrit 36.3 % (36-47); Lymphocytes # 1.4 10^3/uL (0.8-4.8); Lymphocytes % 10.9 %; Mean Corpuscular HGB Conc 33.6 g/dL (30-55); Mean Corpuscular Volume 83.4 fl (85-98); Mean Platelet Volume 9.8 fL (7.4-10.4); Monocytes # 0.7 10^3/uL (0.2-0.9); Monocytes % 5.8 %; Neutrophils % 80.8 %; Nucleated Red Blood Cells % 0 %; Platelet Count 361 10^3/cmm (157-399); Red Blood Count 4.35 10^6/uL (3.85-5.65); Red Cell Distribution Width 13.6 % (12.1-15.1); White Blood Count 12.51 10^3/uL (3.29-11.43)
[2024-03-29] MEDS: diphenhydrAMINE 50 mg/mL SDV 1mL IVP (15:53)
[2024-03-29 16:00] LABS: Alanine Aminotransferase 15 U/L (0-33); Albumin Level 4.4 g/dL (3.5-5.2); Alkaline Phosphatase 102 U/L (35-105); Anion Gap 17.4 (5-19); Aspartate Amino Transferase 17 U/L (0-32); Blood Urea Nitrogen 15 mg/dL (6-20); Calcium 9.2 mg/dL (8.5-10.5); Carbon Dioxide 22 mmol/L (22-29); Chloride 93 mmol/L (98-107); Creatinine Clr Calc Pharmacy 215.6578; Globulin 3.3 g/dL (1.3-4.6); Glucose 259 mg/dL (65-115); Osmolality Calculated 276 mOsm/kg (285-295); Potassium 4.4 mmol/L (3.5-5.1); Sodium 128 mmol/L (136-145); Total Bilirubin 0.2 mg/dL (0.15-1.2); Total Protein 7.7 g/dL (6.6-8.7)
[2024-03-29] MEDS: albuterol 2.5 mg/3 mL Neb INHALATION (16:04)
[2024-03-29 16:06] VITALS: PULSE 92; RESP 22; O2SAT 94
[2024-03-29 16:10] VITALS: PULSE 94
[2024-03-29 16:30] VITALS: BP 139/97; PULSE 94; O2SAT 95
[2024-03-29 18:16] VITALS: BP 175/90; PULSE 91; RESP 18; O2SAT 98
[2024-03-29 18:18] VITALS: BP 175/90; PULSE 91; RESP 18; O2SAT 98
== END 2024-03-29 18:18 | disposition home or self-care (01) ==
PROVIDERS: Emergency Provider Family Medicine; PCP Family Medicine
DX: T50.995A Adverse effect of other drugs, medicaments and biological substances, initial encounter (principal); Y92.538 Other ambulatory health services establishments as the place of occurrence of the external cause
CPT/HCPCS: 71045; 80053; 85025; 94640; 96374; 96375; 99284; J1200; J2919; J3490; J7613

== ENCOUNTER → 2024-04-03 14:29 | Outpatient (BNVA) | payer OTHER, MEDICAID, SELFPAY | PROVIDERS: PCP Family Medicine; Visit Provider Podiatrist Foot & Ankle Surgery | DX: Z98.890 Other specified postprocedural states (principal) | CPT/HCPCS: 99024 ==

== ENCOUNTER → 2024-04-11 10:33 | Outpatient (BNVA) | payer OTHER, MEDICAID, SELFPAY | PROVIDERS: PCP Family Medicine; Referring Provider Internal Medicine Rheumatology; Visit Provider Internal Medicine Cardiovascular Disease | DX: R07.9 Chest pain, unspecified (principal) | CPT/HCPCS: 93005 ==

== ENCOUNTER 2024-04-11 11:40 | Observation (INO) | payer OTHER, MEDICAID, SELFPAY ==
[2024-04-11] VITALS (24 sets, daily range): BP systolic 122–216; BP diastolic 64–114; PULSE 84–118; RESP 16–30; TEMP 36.4–36.7; O2SAT 91–95; BMI 52.5
--- NOTE | 2024-04-11 11:57 | ECG_ITS ---
[facility] Test Date: 2024-04-11 Pat Name: Lori Padron Department: Room: Gender: Female Video Journalist: : 1980 Requested By: Alphonse Couch Order Number: [id number] Zee MD: Sivakumar Tariq M.D. Measurements Intervals [place] Rate: 102 P: 18 RI: 186 QRS: 32 QRSD: 100 T: 17 QT: 343 QTc: 447 Interpretive Statements SINUS TACHYCARDIA LOW QRS VOLTAGE IN PRECORDIAL LEADS [QRS DEFLECTION < 1.0 mV IN CHEST LEADS] Compared to ECG 04/11/2024 10:37:22 Sinus rhythm no longer present Electronically Signed On 04-11-2024 13:20:09 CDT by Sivakumar Tariq M.D. [id number] f
--- NOTE | 2024-04-11 11:57 | XR_ITS ---
WS: [id number] Examination: XR chest 1V portable [id number] Reason for Exam: cp Date: April 11, 2024 Comparison: March 29, 2024 Findings: The heart is not grossly enlarged on this AP portable film. The mediastinum is not widened There is no edema or effusion. There is no consolidation. XR/XR chest 1V portable [id number] Impression: No acute lung process is identified.
[2024-04-11 12:27] LABS: Basophils # 0.1 10^3/uL (0.0-0.1); Basophils % 1.1 %; Eosinophils # 0.1 10^3/uL (0.0-0.8); Eosinophils % 0.6 %; Hematocrit 41.2 % (36-47); Lymphocytes % 11.5 %; Mean Corpuscular HGB Conc 33.5 g/dL (30-55); Mean Corpuscular Hemoglobin 27.9 pg (27-33); Mean Corpuscular Volume 83.4 fl (85-98); Mean Platelet Volume 9.9 fL (7.4-10.4); Monocytes # 0.6 10^3/uL (0.2-0.9); Monocytes % 6.3 %; Neutrophils # 7.04 10^3/uL (1.8-7.7); Neutrophils % 79.3 %; Nucleated Red Blood Cells % 0 %; Platelet Count 298 10^3/cmm (157-399); Red Blood Count 4.94 10^6/uL (3.85-5.65); Red Cell Distribution Width 13.7 % (12.1-15.1); White Blood Count 8.88 10^3/uL (3.29-11.43)
--- NOTE | 2024-04-11 12:34 | ED_ITS ---
HPI - Chest Pain 2 General: Chief Complaint: Chest Pain Stated Complaint: Chest Pain Time Seen by Provider: 04/11/24 12:34 History of Present Illness: 43-year-old female presents to the [facility] ency room with complaints of chest discomfort and syncopal episodes. Over the last several weeks patient has had several syncopal episodes sometimes while driving she has not had any accidents. At the time show get chest pain not always associated with activity. It is not relieved by rest it seems to come and go randomly it will take about 30 minutes after it starts before it resolves itself spontaneously no associated diaphoresis. She does get some shortness of breath with it and does get pain radiating to her neck and into her left shoulder and arm. 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 Associated symptoms: Reports dyspnea; Deny abdominal pain or fever(s) Related Data Home Medications Medication Instructions Recorded Confirmed diphenhydramine HCl 25 mg tablet 25 - 50 mg PO PRN 04/08/20 04/11/24 (Benadryl Allergy) ziprasidone HCl 80 mg capsule 80 mg PO BID 08/24/22 04/11/24 oxcarbazepine 600 mg tablet See Rx Instructions PO .COMPLEX 07/13/23 04/11/24 (Trileptal) buspirone 30 mg tablet 30 mg PO BID 08/26/23 04/11/24 cholecalciferol (vitamin D3) 1,250 50,000 unit PO DAILY 02/07/24 04/11/24 mcg (50,000 unit) capsule brexpiprazole 4 mg tablet (Rexulti) 4 mg PO DAILY 04/11/24 04/11/24 trazodone 100 mg tablet 200 mg PO .hs 04/11/24 04/11/24 Previous Rx's Medication Instructions Recorded ipratropium 0.5 mg-albuterol 3 mg 3 ml inhalation Q8H PRN wheezing 08/27/22 (2.5 mg base)/3 mL nebulization #90 mL soln albuterol sulfate 90 mcg/actuation 2 puff inhalation Q4H PRN 09/20/22 aerosol inhaler (Ventolin HFA) Shortness Of Breath #8.5 grams albuterol sulfate 2.5 mg/3 mL 2.5 mg (3 mL) inhalation Q4H PRN 12/02/22 (0.083 %) solution for nebulization Shortness Of Breath #90 mL atorvastatin 20 mg tablet 20 mg PO DAILY #90 tabs 04/12/23 montelukast 10 mg tablet 10 mg PO DAILY #90 tabs 04/12/23 (Singulair) insulin syringes (disposable) 1 mL #25 ea 04/18/23 pantoprazole 40 mg tablet,delayed 40 mg PO BID #180 tabs 10/26/23 release (Protonix) prednisone 20 mg tablet See Rx Instructions PO .COMPLEX 10/26/23 joint pain flare #90 tabs lisinopril 40 mg tablet 40 mg PO BEDTIME #90 tabs 12/12/23 ondansetron 4 mg disintegrating See Rx Instructions .Route 12/16/23 tablet .COMPLEX #60 ea gabapentin 600 mg tablet 600 mg PO TID #180 tabs 12/22/23 epinephrine 0.3 mg/0.3 mL 0.3 mg (0.3 mL) IM Q15M PRN 12/23/23 injection, auto-injector (EpiPen anaphylaxis #2 ea 2-Edward) mecobalamin (vitamin B12) 1,000 1,000 mcg sublingual DAILY #30 tabs 02/02/24 mcg disintegrating tablet,sublingual levothyroxine 200 mcg tablet 200 mcg PO DAILY #90 tabs 03/07/24 semaglutide 0.25 mg or 0.5 mg (2 0.25 mg (0.368 mL) SUBCUT Q7D 1 03/07/24 mg/3 mL) subcutaneous pen injector month #3 mL (Ozempic) semaglutide 0.25 mg or 0.5 mg (2 0.5 mg (0.736 mL) SUBCUT Q7D 1 03/07/24 mg/3 mL) subcutaneous pen injector month #3 mL (Ozempic) semaglutide 1 mg/dose (4 mg/3 mL) 1 mg (0.75 mL) SUBCUT Q7D #3 mL 03/07/24 subcutaneous pen injector (Ozempic) azathioprine 50 mg tablet 100 mg (2 x 50 mg) PO BID #120 tabs 03/28/24 hydrocodone 5 mg-acetaminophen 325 1 tab PO .Q8hrs PRN pain (scale 03/28/24 mg tablet score 7-10) 30 days #60 tabs hydroxychloroquine 200 mg tablet 200 mg PO BID #180 tabs 03/28/24 prednisone 5 mg tablet 5 mg PO DAILY #90 tabs 03/28/24 cetirizine 10 mg tablet 10 mg PO BID #60 tabs 03/29/24 Allergies Allergy/AdvReac Type Severity Reaction Status Date / Time amoxicillin Allergy ALGY-Rash Verified 04/11/24 10:42 bee venom protein (honey bee) Allergy ALGY-Anaphy Verified 04/11/24 10:42 laxis cinnamon Allergy anaphylacti Verified 04/11/24 10:42 c desvenlafaxine [From Pristiq] Allergy Unknown Verified 04/11/24 10:42 fluoxetine [From Prozac] Allergy Unknown Verified 04/11/24 10:42 Latex, Natural Rubber Allergy ALGY-Rash Verified 04/11/24 10:42 oxytocin [From Pitocin] Allergy ADR-Itching Verified 04/11/24 10:42 Penicillins Allergy ALGY-Hives Verified 04/11/24 10:42 Sulfa (Sulfonamide Allergy ALGY-Rash Verified 04/11/24 10:42 Antibiotics) leflunomide AdvReac Intermediate gastric Verified 04/11/24 10:42 Review of Systems 2 Const: Denies: fever(s) or chills Card: Reports: chest pain Resp: Reports: dyspnea GI: Denies: abdominal pain : Denies: dysuria, urinary frequency or urinary urgency Musc: Denies: neck pain or back pain Skin/Breast: Denies: rash PFSH ED 2 PFSH: Medical History B12 deficiency Lung injury associated with vaping Contact dermatitis SLE (systemic lupus erythematosus related syndrome) Hypothyroidism COPD (chronic obstructive pulmonary disease) Leukocytosis Rosacea Positive double stranded DNA antibody test Labral tear of left hip joint KI (obstructive sleep apnea) Morbid obesity Bipolar 1 disorder PTSD (post-traumatic stress disorder) Hyponatremia Chronic urticaria Insomnia Mild intermittent asthma Allergic rhinitis GERD (gastroesophageal reflux disease) Shingles 4th occurrence Hyperlipemia, mixed Helicobacter pylori gastritis Mandibular fracture Diabetes mellitus Type 2 Depression Hypertension Surgical History History of mandibular surgery For mandibular fracture H/O esophagogastroduodenoscopy (09/02/21) H/O thyroidectomy S/P cholecystectomy S/P tonsillectomy and adenoidectomy S/P breast lumpectomy Right breast lumpectomy for benign disease Previous section Family History Father Hypertension Cancer testicular Cardiac abnormality Mother Congestive heart failure (CHF) COPD (chronic obstructive pulmonary disease) Diabetes Cancer ovarian and uterine Family/Other Cancer Maternal aunt- HR2 breast Other CAD (coronary artery disease) Family history of premature coronary artery disease Hyperlipidemia Lung disease Psychiatric illness Rheumatoid arthritis Stroke Denies family history of Lupus Clotting disorder Dementia Chronic kidney disease (CKD) Anesthesia complication Bleeding disorder Social History Smoking and tobacco/nicotine status: current every day tobacco/nicotine user e- cigarettes Quit status (tobacco/nicotine): has quit using Year quit tobacco: July Former quit date comment: Hx of 2 ppd X 25 years, started at age 16 yr. 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 Sexually active: Yes Do you think of yourself as: Straight/Heterosexual Current gender identity: Female [place]/[employer] Special balbina needs: No Agree to transfusion: Yes Physical Exam 2 Const: GENERAL APPEARANCE: cooperative NUTRITIONAL APPEARANCE: obese O RIENTATION/CONSCIOUSNESS: Yes awake, Yes oriented to person, Yes oriented to place and Yes oriented to time HENMT: COMMON NORMALS: normocephalic, atraumatic and hearing grossly normal bilaterally HEAD & SCALP: normocephalic and atraumatic Resp: COMMON NORMALS: normal respiratory effort, No retractions, No use of accessory muscles and clear to auscultation bilaterally AUSCULTATION: clear to auscultation bilaterally Cardio: COMMON NORMALS: regular rate, regular rhythm and No murmurs present (Cardio) RATE: regular rate RHYTHM: regular rhythm GI: COMMON NORMALS: Soft to palpation and No hepatosplenomegaly present A USCULTATION: Yes normoactive bowel sounds PALPATION: Yes Soft to palpation, No Tenderness to palpation present (GI), No Guarding due to palpation present (GI) and Yes No hepatosplenomegaly present Extremity: COMMON NORMALS: normal to inspection, capillary refill normal, no clubbing, cyanosis or edema, no calf tenderness and no pedal edema Neuro: SENSORIUM/ORIENTATION: Yes oriented to person, Yes oriented to place and Yes oriented to time Skin: COMMON NORMALS: no rashes or lesions noted GENERAL SKIN EXAM: no rashes or lesions noted Course 2 Vital Signs: Vital signs: Vital Signs Temperature 98.1 F 04/11/24 11:48 Pulse Rate 97 04/11/24 12:39 Respiratory Rate 18 04/11/24 12:39 Blood Pressure 216/114 04/11/24 12:39 Pulse Oximetry 94 04/11/24 12:39 Oxygen Delivery Me thod Room Air 04/11/24 12:39 MDM - Chest Pain Medical Decision Making Patient having multiple episodes of chest discomfort have been escalating per her report she also had several syncopal episodes associated with these. Blood pressure is accelerated on arrival here improved with hydralazine and labetalol. Will admit to cardiac stepdown discussed with hospitalist orders written. Dr. Londono had seen the patient and recommended admission earlier when he was in the office with her we contacted him as well to let him know the patient was admitted Medical Records I reviewed the patient's medical records. Lab Data I reviewed the patient's lab results. 04/11/24 12:15 04/11/24 12:15 Radiology Impressions Chest X-Ray 04/11/24 11:57 Impression: No acute lung process is identified. Laboratory Results WBC 8.88 10^3/uL (3.29-11.43) 04/11/24 12:15 RBC 4.94 10^6/uL (3.85-5.65) 04/11/24 12:15 Hgb 13.80 g/dL (11.27-16.99) 04/11/24 12:15 Hct 41.2 % (36-47) 04/11/24 12:15 MCV 83.4 fl (85-98) L 04/11/24 12:15 MCH 27.9 pg (27-33) 04/11/24 12:15 MCHC 33.5 g/dL (30-55) 04/11/24 12:15 RDW 13.7 % (12.1-15.1) 04/11/24 12:15 Plt Count 298 10^3/cmm (157-399) 04/11/24 12:15 MPV 9.9 fL (7.4-10.4) 04/11/24 12:15 Neut % (Auto) 79.3 % 04/11/24 12:15 Lymph % (Auto) 11.5 % 04/11/24 12:15 Hartley % (Auto) 6.3 % 04/11/24 12:15 Eos % (Auto) 0.6 % 04/11/24 12:15 Baso % (Auto) 1.1 % 04/11/24 12:15 Neut # (Auto) 7.04 10^3/uL (1.8-7.7) 04/11/24 12:15 Lymph # (Auto) 1.0 10^3/uL (0.8-4.8) 04/11/24 12:15 Hartley # (Auto) 0.6 10^3/uL (0.2-0.9) 04/11/24 12:15 Eos # (Auto) 0.1 10^3/uL (0.0-0.8) 04/11/24 12:15 Baso # (Auto) 0.1 10^3/uL (0.0-0.1) 04/11/24 12:15 Nucleated RBC % (auto) 0 % 04/11/24 12:15 Nucleated RBCs # 0.0 /100WBC 04/11/24 12:15 D-Dimer <= 0.27 ug/mLFEU (0-0.59) 04/11/24 12:15 Specimen Type Arterial 04/11/24 13:18 Sample Site Brachial, left 04/11/24 13:18 ABG pH 7.39 (7.35-7.45) 04/11/24 13:18 ABG pCO2 36.2 mmHg (35-45) 04/11/24 13:18 ABG pO2 85.0 mmHg (80.0-100.0) 04/11/24 13:18 ABG PO2/FiO2 Ratio 404 04/11/24 13:18 ABG HCO3 21.8 mmol/L (22-26) L 04/11/24 13:18 ABG O2 Saturation 97.2 04/11/24 13:18 ABG Base Excess -2.7 mmol/L (-2.0-2.0) L 04/11/24 13:18 Aric Test Pos 04/11/24 13:18 A-a O2 Gradient 2.5 mmHg (5-10) L 04/11/24 13:18 Hematocrit 41.5 % (37-47) 04/11/24 13:18 Hgb O2 Saturation 95.3 % (95-100) 04/11/24 13:18 Carboxyhemoglobin 0.8 %THgb (0.4-20.1) 04/11/24 13:18 Methemoglobin 1.1 % (0.4-1.5) 04/11/24 13:18 Total Hemoglobin 13.5 g/dL (12-16) 04/11/24 13:18 Sodium 130.0 mmol/L (131-143) L 04/11/24 13:18 Potassium 4.3 mmol/L (3.5-5.0) 04/11/24 13:18 Glucose 277.0 mg/dL (70-115) H 04/11/24 13:18 Ionized Calcium 1.2 mmol/L (1.1-1.4) 04/11/24 13:18 O2 Delivery Device Room air 04/11/24 13:18 FiO2 21.0 % 04/11/24 13:18 Livestock Inspector ID Cak 04/11/24 13:18 Sodium 129 mmol/L (136-145) L 04/11/24 12:15 Potassium 4.8 mmol/L (3.5-5.1) 04/11/24 12:15 Chloride 93 mmol/L (98-107) L 04/11/24 12:15 Carbon Dioxide 21 mmol/L (22-29) L 04/11/24 12:15 Anion Gap 19.8 (5-19) H 04/11/24 12:15 BUN 12 mg/dL (6-20) 04/11/24 12:15 Creatinine 0.6 mg/dL (0.5-0.9) 04/11/24 12:15 GFR Calculation 110.2 mL/min (90-130) 04/11/24 12:15 Glucose 329 mg/dL (65-115) H 04/11/24 12:15 Calculated Osmolality 281 mOsm/kg (285-295) L 04/11/24 12:15 Calcium 9.2 mg/dL (8.5-10.5) 04/11/24 12:15 Total Bilirubin 0.2 mg/dL (0.15-1.2) 04/11/24 12:15 AST 18 U/L (0-32) 04/11/24 12:15 ALT 25 U/L (0-33) 04/11/24 12:15 Alkaline Phosphatase 105 U/L (35-105) 04/11/24 12:15 Troponin T Baseline < 6 ng/L (0-10) 04/11/24 12:15 NT-Pro-B Natriuret Pep < 36 pg/mL (0-125) 04/11/24 12:15 Total Protein 7.9 g/dL (6.6-8.7) 04/11/24 12:15 Albumin 4.9 g/dL (3.5-5.2) 04/11/24 12:15 Globulin 3.0 g/dL (1.3-4.6) 04/11/24 12:15 All radiology interpretation(s) finalized by discharge EKG Data EKG 1: Interpretation: EKG shows sinus tachycardia rate of 102 normal FL interval at 186 QTc is normal. There are no acute ST changes noted. No subendocardial ischemia. Discharge Plan Discharge Patient Disposition: Placed in Observation Clinical Impression: Syncope, Chest pain, Accelerated essential hypertension Coding Level of Care Code ED Nail Maker for Chao Monsalve
[2024-04-11 12:40] LABS: D Dimer <= 0.27 ug/mLFEU (0-0.59)
--- NOTE | 2024-04-11 12:40 | PC.NURSE ---
PATIENT TO BE CARDIAC MONITORED-NO CARDIAC LEADS ON UNIT. CALLED CLERICAL MANAGER TO BRING CARDIAC LEADS. DELAY IN CARDIAC MONITORING DUE TO THIS ISSUE.
[2024-04-11 12:44] LABS: Troponin(5th) Baseline < 6 ng/L (0-10)
[2024-04-11 12:46] LABS: Alanine Aminotransferase 25 U/L (0-33); Albumin Level 4.9 g/dL (3.5-5.2); Alkaline Phosphatase 105 U/L (35-105); Anion Gap 19.8 (5-19); Aspartate Amino Transferase 18 U/L (0-32); Blood Urea Nitrogen 12 mg/dL (6-20); Calcium 9.2 mg/dL (8.5-10.5); Carbon Dioxide 21 mmol/L (22-29); Chloride 93 mmol/L (98-107); Creatinine Clr Calc Pharmacy 178.3006; Glomerular Filtration Rate 110.2 mL/min (90-130); Glucose 329 mg/dL (65-115); Osmolality Calculated 281 mOsm/kg (285-295); Potassium 4.8 mmol/L (3.5-5.1); Sodium 129 mmol/L (136-145); Total Bilirubin 0.2 mg/dL (0.15-1.2); Total Protein 7.9 g/dL (6.6-8.7)
[2024-04-11 13:29] LABS: ABG PCO2 36.2 mmHg (35-45); ABG PH Result 7.39 (7.35-7.45); Alveolar-Arterial Oxygen Gradi 2.5 mmHg (5-10); Arterial Blood Gas Hematocrit 41.5 % (37-47); Base Excess ABG -2.7 mmol/L (-2.0-2.0); Blood Gas Allen Test Pos; Blood Gas Operator Identificat CAK; Blood Gas Sample Site Brachial, left; Blood Gas Sample Type Arterial; Carboxyhemoglobin 0.8 %THgb (0.4-20.1); HCO3 ABG 21.8 mmol/L (22-26); HGB O2 Sat 95.3 % (95-100); Ionized Calcium Level - ABG 1.2 mmol/L (1.1-1.4); Methemoglobin 1.1 % (0.4-1.5); Oxygen Device ROOM AIR; Oxygen Saturation ABG 97.2; PO2 FiO2 Ratio Arterial Blood 404; Potassium Level - ABG 4.3 mmol/L (3.5-5.0); Total Hemoglobin 13.5 g/dL (12-16)
[2024-04-11 13:45] LABS: NT Pro B Type Natriuretic Pept < 36 pg/mL (0-125)
[2024-04-11] MEDS: labetalol 5 mg/mL SDV 20mL 10 MG IVP (13:57)
--- NOTE | 2024-04-11 14:03 | ECG_ITS ---
[facility] Test Date: 2024-04-11 Pat Name: Lori Padron Department: Room: Gender: Female Skin Lifter Bacon: : 1980 Requested By: Alphonse Couch Order Number: [id number] MD: Sivakumar Tariq M.D. Measurements Intervals [place] Rate: 87 P: 14 CT: 197 QRS: 29 QRSD: 106 T: 18 QT: 385 QTc: 465 Interpretive Statements SINUS RHYTHM LOW QRS VOLTAGE IN PRECORDIAL LEADS [QRS DEFLECTION < 1.0 mV IN CHEST LEADS] Compared to ECG 04/11/2024 11:42:58 Sinus tachycardia no longer present Electronically Signed On 04-11-2024 15:37:43 CDT by Sivakumar Tariq M.D. [id number]
[2024-04-11] MEDS: hyDRALAzine 20 mg/mL INJ 1 mL 10 MG IVP (14:04)
[2024-04-11 14:09] LABS: Troponin 5 2HR Delta 0.00001 ABS# (0-10)
--- NOTE | 2024-04-11 14:21 | PC.PHAR ---
PT STATES USES A CPAP FOR SLEEPING.
--- NOTE | 2024-04-11 15:09 | P.HP_ITS ---
Providers/Chief Complaint 2 Admitting Physician: Snehal Curtis MD Primary Care Provider: Elan Kuhn MD Chief Complaint: Chest Pain History of Present Illness Lori Padron is a 43 year old female who was sent from cardiology clinic for evaluation of chest pain. Patient has been having chest pain along shortness of breath with mild to moderate exertion which has been gradually getting worse in past few weeks. In the past she has had multiple syncopal events without any significant prodromal symptoms. She has been admitted to cardiac stepdown unit for an angiogram in the morning. Her B12 level is normal, hemoglobin A1c is 8.9, D-dimer unremarkable for her age no need to pursue thromboembolic CTA chest or venous Doppler. Her BMP showed hyponatremia. She is hyperglycemia without signs of DKA troponins unremarkable EKG without ischemic or infarctive changes. Patient stating that on Tuesday she had 1 syncopal event, since then she has been having gradual worsening of chest pain. She described the chest pain as pressure-like sensation, substernal. She is not endorsing family history of RI in her parents. For her lupus she received a new medication on March 29 and developed a reaction She take steroids and hydroxychloroquine for lupus which was diagnosed in 2022 Review of Systems 2 Eyes: Denies: change in vision ENMT: Denies: throat pain Card: Reports: chest pain Resp: Reports: dyspnea GI: Denies: abdominal pain : Denies: flank pain Medications/Allergies Home Medications Medication Instructions Recorded Confirmed Last Taken Type diphenhydramine HCl 25 mg tablet 25 - 50 mg PO PRN 04/08/20 04/11/24 02/06/24 20:00 History (Benadryl Allergy) ziprasidone HCl 80 mg capsule 80 mg PO BID 08/24/22 04/11/24 04/11/24 History albuterol sulfate 90 mcg/actuation 2 puff inhalation Q4H PRN 09/20/22 04/11/24 Unknown Rx aerosol inhaler (Ventolin HFA) Shortness Of Breath #8.5 grams albuterol sulfate 2.5 mg/3 mL 2.5 mg (3 mL) inhalation Q4H PRN 12/02/22 04/11/24 Unknown Rx (0.083 %) solution for nebulization Shortness Of Breath #90 mL atorvastatin 20 mg tablet 20 mg PO DAILY #90 tabs 04/12/23 04/11/24 04/11/24 Rx montelukast 10 mg tablet 10 mg PO DAILY #90 tabs 04/12/23 04/11/24 04/11/24 Rx (Singulair) insulin syringes (disposable) 1 mL #25 ea 04/18/23 04/11/24 Unknown Rx oxcarbazepine 600 mg tablet See Rx Instructions PO .COMPLEX 07/13/23 04/11/24 04/11/24 History (Trileptal) buspirone 30 mg tablet 30 mg PO BID 08/26/23 04/11/24 04/11/24 History pantoprazole 40 mg tablet,delayed 40 mg PO BID #180 tabs 10/26/23 04/11/24 04/11/24 Rx release (Protonix) lisinopril 40 mg tablet 40 mg PO BEDTIME #90 tabs 12/12/23 04/11/24 04/10/24 Rx ondansetron 4 mg disintegrating See Rx Instructions .Route 12/16/23 04/11/24 02/06/24 22:00 Rx tablet .COMPLEX #60 ea gabapentin 600 mg tablet 600 mg PO TID #180 tabs 12/22/23 04/11/24 04/11/24 Rx epinephrine 0.3 mg/0.3 mL 0.3 mg (0.3 mL) IM Q15M PRN 12/23/23 04/11/24 Unknown Rx injection, auto-injector (EpiPen anaphylaxis #2 ea 2-Edward) mecobalamin (vitamin B12) 1,000 1,000 mcg sublingual DAILY #30 tabs 02/02/24 04/11/24 04/11/24 Rx mcg disintegrating tablet,sublingual cholecalciferol (vitamin D3) 1,250 50,000 unit PO Q7D 02/07/24 04/11/24 04/10/24 History mcg (50,000 unit) capsule levothyroxine 200 mcg tablet 200 mcg PO DAILY #90 tabs 03/07/24 04/11/24 04/11/24 Rx semaglutide 0.25 mg or 0.5 mg (2 0.5 mg (0.736 mL) SUBCUT Q7D 1 03/07/24 04/11/24 04/08/24 Rx mg/3 mL) subcutaneous pen injector month #3 mL (Ozempic) semaglutide 1 mg/dose (4 mg/3 mL) 1 mg (0.75 mL) SUBCUT Q7D #3 mL 03/07/24 04/11/24 Unknown Rx subcutaneous pen injector (Ozempic) azathioprine 50 mg tablet 100 mg (2 x 50 mg) PO BID #120 tabs 03/28/24 04/11/24 04/11/24 Rx hydrocodone 5 mg-acetaminophen 325 1 tab PO .Q8hrs PRN pain (scale 03/28/24 04/11/24 Unknown Rx mg tablet score 7-10) 30 days #60 tabs hydroxychloroquine 200 mg tablet 200 mg PO BID #180 tabs 03/28/24 04/11/24 04/11/24 Rx cetirizine 10 mg tablet 10 mg PO BID #60 tabs 03/29/24 04/11/24 04/11/24 Rx brexpiprazole 4 mg tablet (Rexulti) 4 mg PO QAM 04/11/24 04/11/24 04/11/24 History clonazepam 1 mg tablet 1 mg PO BEDTIME Anxiety 04/11/24 04/11/24 04/10/24 History dextroamphetamine-amphetamine ER 1 cap PO QAM 04/11/24 04/11/24 04/11/24 History 30 mg 24hr capsule,extend release furosemide 20 mg tablet 20 mg PO QAM PRN Edema 04/11/24 04/11/24 04/11/24 History hydroxyzine pamoate 50 mg capsule 100 mg PO BID 04/11/24 04/11/24 04/11/24 History ketorolac 10 mg tablet 1 mg PO Q4H PRN Pain 04/11/24 04/11/24 Unknown History prednisone 20 mg tablet See Rx Instructions PO .COMPLEX 04/11/24 04/11/24 Unknown History PRN joint pain flare prednisone 5 mg tablet 5 mg PO QAM 04/11/24 04/11/24 04/11/24 History torsemide 20 mg tablet See Rx Instructions .Route .COMPLEX 04/11/24 04/11/24 04/11/24 History trazodone 100 mg tablet 200 mg PO BEDTIME 04/11/24 04/11/24 04/10/24 History vilazodone 10 mg tablet 10 mg PO QAM 04/11/24 04/11/24 04/11/24 History Allergies Allergy/AdvReac Type Severity Reaction Status Date / Time amoxicillin Allergy ALGY-Rash Verified 04/11/24 10:42 bee venom protein (honey bee) Allergy ALGY-Anaphy Verified 04/11/24 10:42 laxis cinnamon Allergy anaphylacti Verified 04/11/24 10:42 c desvenlafaxine [From Pristiq] Allergy Unknown Verified 04/11/24 10:42 fluoxetine [From Prozac] Allergy Unknown Verified 04/11/24 10:42 Latex, Natural Rubber Allergy ALGY-Rash Verified 04/11/24 10:42 oxytocin [From Pitocin] Allergy ADR-Itching Verified 04/11/24 10:42 Penicillins Allergy ALGY-Hives Verified 04/11/24 10:42 Sulfa (Sulfonamide Allergy ALGY-Rash Verified 04/11/24 10:42 Antibiotics) leflunomide AdvReac Intermediate gastric Verified 04/11/24 10:42 PFSH Acute 2 PFSH: Medical History B12 deficiency Lung injury associated with vaping Contact dermatitis SLE (systemic lupus erythematosus related syndrome) Hypothyroidism COPD (chronic obstructive pulmonary disease) Leukocytosis Rosacea Positive double stranded DNA antibody test Labral tear of left hip joint KI (obstructive sleep apnea) Morbid obesity Bipolar 1 disorder PTSD (post-traumatic stress disorder) Hyponatremia Chronic urticaria Insomnia Mild intermittent asthma Allergic rhinitis GERD (gastroesophageal reflux disease) Shingles 4th occurrence Hyperlipemia, mixed Helicobacter pylori gastritis Mandibular fracture Diabetes mellitus Type 2 Depression Hypertension Surgical History History of mandibular surgery For mandibular fracture H/O esophagogastroduodenoscopy (09/02/21) H/O thyroidectomy S/P cholecystectomy S/P tonsillectomy and adenoidectomy S/P breast lumpectomy Right breast lumpectomy for benign disease Previous section Family History Father Hypertension Cancer testicular Cardiac abnormality Mother Congestive heart failure (CHF) COPD (chronic obstructive pulmonary disease) Diabetes Cancer ovarian and uterine Family/Other Cancer Maternal aunt- HR2 breast Other CAD (coronary artery disease) Family history of premature coronary artery disease Hyperlipidemia Lung disease Psychiatric illness Rheumatoid arthritis Stroke Denies family history of Lupus Clotting disorder Dementia Chronic kidney disease (CKD) Anesthesia complication Bleeding disorder Social History Smoking and tobacco/nicotine status: current every day tobacco/nicotine user e- cigarettes Quit status (tobacco/nicotine): has quit using Year quit tobacco: July Former quit date comment: Hx of 2 ppd X 25 years, started at age 16 yr. Alcohol intake: former Substance/Drug Use: never Adopted: No Caregiver/support person: No Lives independently: Yes Household members: spouse and family Housing: House Marital status: Number of children: 2 Number of grandchildren: 1 Highest education level completed: Some College, No Degree service: No Current occupational status: employed Current occupation: [employer] Sexually active: Yes Do you think of yourself as: Straight/Heterosexual Current gender identity: Female Balbina/Voodoo: Caodaism Special balbina needs: No Agree to transfusion: Yes Vitals/I&O/Wt Last Vital Signs Temp 98.1 F 04/11/24 14:45 Pulse 84 04/11/24 14:45 Resp 18 04/11/24 14:45 BP 154/98 04/11/24 14:45 Pulse Ox 92 04/11/24 14:45 O2 Del Method Room Air 04/11/24 14:09 Weight last 48 hrs Weight 143.335 kg Physical Exam 2 Narrative: Young female Morbidly obese No active chest pain Hemodynamically stable Pleasant cooperative Nonfocal neuroexam distended abdomen nontender Pleasant cooperative No sign of fluid overload S1, S2 Tachycardia Maller rash Contact dermatitis rash on soles bilaterally Extremely dry skin Data 04/11/24 12:15 04/11/24 12:15 A&P Assessment and plan (1) Bipolar 1 disorder: (2) Generalized anxiety disorder: (3) ADHD: (4) Hypertension: (5) Diabetes mellitus: (6) Hyponatremia: (7) Fatty liver: (8) Syncope: (9) Fatigue: (10) Angina of effort: Plan Unstable angina with symptoms of syncope in the past Patient is hemodynamically stable Chest pain-free Continue telemonitoring Cardiology consult N.p.o. after midnight Plan for angiogram in the morning Will use insulin sliding scale B12 levels normal, A1c 8.9 Chronic hyponatremia Would use p.o. morphine for as needed basis Patient history of sleep apnea would use CPAP overnight Attestations 2 Medical Necessity Statement*: Anticipating discharge within 48 hours Diagnoses Bipolar 1 disorder F31.9 Generalized anxiety disorder F41.1 ADHD F90.9 Hypertension I10 Diabetes mellitus E11.9 Hyponatremia E87.1 Fatty liver K76.0 Syncope R55 Fatigue R53.83 Angina of effort I20.89
--- NOTE | 2024-04-11 15:21 | USCV_ITS ---
Lori Padron Age: 43 Gender: F : 1980 Exam Date: 04/11/2024 15:45 Ordering Phys: Snehal Curtis MD Technologist: CT Exam Location: [facility] Indication: BP: 135 / 85 HR: 89 Rhythm: Sinus Technical Quality: Technically difficult study MEASUREMENTS (Male / Female) Normal Values 2D ECHO LVOT Diameter 2.3 cm LV Ejection Fraction MOD 4C 67.3 % LV Ejection Fraction MOD 2C 62.7 % LV Ejection Fraction 2C AL 66.8 % LA Diameter 3.7 cm RA Systolic Volume 4C AL 68.0 ml RA Systolic Volume 4C MOD 66.8 ml LA Sys Volume AL 64.8 cm cubed LA Sys Volume Index AL 24.4 cm cubed/m squared Aorta at Sinotubular Diameter 2.1 cm M-MODE LA Ao Ratio MM 1.6 AV Cusp Separation MM 1.7 cm DOPPLER AV Peak Velocity 144.0 cm/s LVOT Peak Velocity 106.0 cm/s AV Area Cont Eq vti 3.3 cm squared AV Area Cont Eq pk 3.0 cm squared MV Peak Velocity 107.0 cm/s MV Area PHT 3.9 cm squared Mitral E to A Ratio 0.9 TR Peak Velocity 138.0 cm/s TR Peak Gradient 7.6 mmHg TV Peak E Velocity 91.0 cm/s Right Atrial Pressure 3.0 mmHg Pulmonary Artery Systolic Pressu 10.6 mmHg PV Peak Velocity 105.5 cm/s FINDINGS Left Ventricle Normal left ventricular size, systolic function and wall thickness, with no regional wall motion abnormalities. Ejection fraction is 60%. Normal left ventricular wall thickness.Grade I/IV diastolic dysfunction (abnormal relaxation filling pattern), normal to mildly elevated filling pressures. Right Ventricle The right ventricle is normal in size and function. Right Atrium The right atrium is normal in size. Left Atrium The left atrium is normal in size. Mitral Valve Structurally normal mitral valve without significant stenosis or prolapse. There is no mitral regurgitation. Aortic Valve Structurally normal aortic valve without significant sclerosis or stenosis. There is no aortic regurgitation. Tricuspid Valve Structurally normal tricuspid valve without significant stenosis or regurgitation. Pulmonary artery systolic pressure is normal. Pulmonic Valve Structurally normal pulmonic valve without significant stenosis. There is no pulmonic regurgitation. Pericardium Normal pericardium without effusion. Aorta Normal ascending aorta dimension. IVC The inferior vena cava appears normal. CONCLUSIONS Normal left ventricular size, systolic function and wall thickness, with no regional wall motion abnormalities. Ejection fraction is 60%. Normal left ventricular wall thickness.Grade I/IV diastolic dysfunction (abnormal relaxation filling pattern), normal to mildly elevated filling pressures. No significant chamber abnormalities. There is no pericardial effusion. Right atrial pressure is around 5 mm of mercury. Snehal House MD (Electronically Signed) Final Date: 11 April 2024 18:36 S
[2024-04-11 16:00] LABS: Estmated Average Glucose 209; Hemoglobin A1C 8.9 % (4.0-6.0)
[2024-04-11 16:04] LABS: Vitamin B12 603 pg/mL (232-1245)
--- NOTE | 2024-04-11 16:14 | P.CONIM_ITS ---
Providers/Reason For Consult 2 Consulting Physician/Specialty*: Dr. Wallace Reason for Consult*: Chest pain Syncope Attending Physician: Snehal Curtis MD Primary Care Provider: Elan Kuhn MD History of Present Illness History of Present Illness Lori Padron is a 43 year old female past medical history significant for obesity hypertension hyperlipidemia history of recurrent syncope and chest pain with history of tobacco use quit few years ago came to my clinic with worsening of symptoms according to her she had passed out without warning multiple time in the near past, she also admits to worsening of chest pain along with shortness of breath on [id number] exertion she thinks it has been increasing in frequency and duration. In my clinic patient was complaining of active chest pain it is the reason patient was transferred to emergency department with a plan to admit for observation and to rule out acute coronary syndrome with the intention to monitor on telemetry for arrhythmia and to proceed with possible left heart cath tomorrow. Review of Systems 2 Const: Denies: fever(s) or chills Eyes: Denies: photophobia ENMT: Denies: enlarged tonsils Card: Reports: chest pain Resp: Reports: dyspnea GI: Denies: abdominal pain : Denies: dysuria, urinary frequency or urinary urgency Musc: Denies: neck pain or back pain Skin/Breast: Denies: rash All/Imm: Denies: acute wheezing Medications/Allergies Home Medications Medication Instructions Recorded Confirmed Last Taken Type diphenhydramine HCl 25 mg tablet 25 - 50 mg PO PRN 04/08/20 04/11/24 02/06/24 20:00 History (Benadryl Allergy) ziprasidone HCl 80 mg capsule 80 mg PO BID 08/24/22 04/11/24 04/11/24 History albuterol sulfate 90 mcg/actuation 2 puff inhalation Q4H PRN 09/20/22 04/11/24 Unknown Rx aerosol inhaler (Ventolin HFA) Shortness Of Breath #8.5 grams albuterol sulfate 2.5 mg/3 mL 2.5 mg (3 mL) inhalation Q4H PRN 12/02/22 04/11/24 Unknown Rx (0.083 %) solution for nebulization Shortness Of Breath #90 mL atorvastatin 20 mg tablet 20 mg PO DAILY #90 tabs 04/12/23 04/11/24 04/11/24 Rx montelukast 10 mg tablet 10 mg PO DAILY #90 tabs 04/12/23 04/11/24 04/11/24 Rx (Singulair) insulin syringes (disposable) 1 mL #25 ea 04/18/23 04/11/24 Unknown Rx oxcarbazepine 600 mg tablet See Rx Instructions PO .COMPLEX 07/13/23 04/11/24 04/11/24 History (Trileptal) buspirone 30 mg tablet 30 mg PO BID 08/26/23 04/11/24 04/11/24 History pantoprazole 40 mg tablet,delayed 40 mg PO BID #180 tabs 10/26/23 04/11/24 04/11/24 Rx release (Protonix) lisinopril 40 mg tablet 40 mg PO BEDTIME #90 tabs 12/12/23 04/11/24 04/10/24 Rx ondansetron 4 mg disintegrating See Rx Instructions .Route 12/16/23 04/11/24 02/06/24 22:00 Rx tablet .COMPLEX #60 ea gabapentin 600 mg tablet 600 mg PO TID #180 tabs 12/22/23 04/11/24 04/11/24 Rx epinephrine 0.3 mg/0.3 mL 0.3 mg (0.3 mL) IM Q15M PRN 12/23/23 04/11/24 Unknown Rx injection, auto-injector (EpiPen anaphylaxis #2 ea 2-Edward) mecobalamin (vitamin B12) 1,000 1,000 mcg sublingual DAILY #30 tabs 02/02/24 04/11/24 04/11/24 Rx mcg disintegrating tablet,sublingual cholecalciferol (vitamin D3) 1,250 50,000 unit PO Q7D 02/07/24 04/11/24 04/10/24 History mcg (50,000 unit) capsule levothyroxine 200 mcg tablet 200 mcg PO DAILY #90 tabs 03/07/24 04/11/24 04/11/24 Rx semaglutide 0.25 mg or 0.5 mg (2 0.5 mg (0.736 mL) SUBCUT Q7D 1 03/07/24 04/11/24 04/08/24 Rx mg/3 mL) subcutaneous pen injector month #3 mL (Ozempic) semaglutide 1 mg/dose (4 mg/3 mL) 1 mg (0.75 mL) SUBCUT Q7D #3 mL 03/07/24 04/11/24 Unknown Rx subcutaneous pen injector (Ozempic) azathioprine 50 mg tablet 100 mg (2 x 50 mg) PO BID #120 tabs 03/28/24 04/11/24 04/11/24 Rx hydrocodone 5 mg-acetaminophen 325 1 tab PO .Q8hrs PRN pain (scale 03/28/24 04/11/24 Unknown Rx mg tablet score 7-10) 30 days #60 tabs hydroxychloroquine 200 mg tablet 200 mg PO BID #180 tabs 03/28/24 04/11/24 04/11/24 Rx cetirizine 10 mg tablet 10 mg PO BID #60 tabs 03/29/24 04/11/24 04/11/24 Rx brexpiprazole 4 mg tablet (Rexulti) 4 mg PO QAM 04/11/24 04/11/24 04/11/24 History clonazepam 1 mg tablet 1 mg PO BEDTIME Anxiety 04/11/24 04/11/24 04/10/24 History dextroamphetamine-amphetamine ER 1 cap PO QAM 04/11/24 04/11/24 04/11/24 History 30 mg 24hr capsule,extend release furosemide 20 mg tablet 20 mg PO QAM PRN Edema 04/11/24 04/11/24 04/11/24 History hydroxyzine pamoate 50 mg capsule 100 mg PO BID 04/11/24 04/11/24 04/11/24 History ketorolac 10 mg tablet 1 mg PO Q4H PRN Pain 04/11/24 04/11/24 Unknown History prednisone 20 mg tablet See Rx Instructions PO .COMPLEX 04/11/24 04/11/24 Unknown History PRN joint pain flare prednisone 5 mg tablet 5 mg PO QAM 04/11/24 04/11/24 04/11/24 History torsemide 20 mg tablet See Rx Instructions .Route .COMPLEX 04/11/24 04/11/24 04/11/24 History trazodone 100 mg tablet 200 mg PO BEDTIME 04/11/24 04/11/24 04/10/24 History vilazodone 10 mg tablet 10 mg PO QAM 08/04/11/24 04/11/24 History Allergies Allergy/AdvReac Type Severity Reaction Status Date / Time amoxicillin Allergy ALGY-Rash Verified 04/11/24 10:42 bee venom protein (honey bee) Allergy ALGY-Anaphy Verified 04/11/24 10:42 laxis cinnamon Allergy anaphylacti Verified 04/11/24 10:42 c desvenlafaxine [From Pristiq] Allergy Unknown Verified 04/11/24 10:42 fluoxetine [From Prozac] Allergy Unknown Verified 04/11/24 10:42 Latex, Natural Rubber Allergy ALGY-Rash Verified 04/11/24 10:42 oxytocin [From Pitocin] Allergy ADR-Itching Verified 04/11/24 10:42 Penicillins Allergy ALGY-Hives Verified 04/11/24 10:42 Sulfa (Sulfonamide Allergy ALGY-Rash Verified 04/11/24 10:42 Antibiotics) leflunomide AdvReac Intermediate gastric Verified 04/11/24 10:42 PFSH Acute 2 PFSH: Medical History B12 deficiency Lung injury associated with vaping Contact dermatitis SLE (systemic lupus erythematosus related syndrome) Hypothyroidism COPD (chronic obstructive pulmonary disease) Leukocytosis Rosacea Positive double stranded DNA antibody test Labral tear of left hip joint KI (obstructive sleep apnea) Morbid obesity Bipolar 1 disorder PTSD (post-traumatic stress disorder) Hyponatremia Chronic urticaria Insomnia Mild intermittent asthma Allergic rhinitis GERD (gastroesophageal reflux disease) Shingles 4th occurrence Hyperlipemia, mixed Helicobacter pylori gastritis Mandibular fracture Diabetes mellitus Type 2 Depression Hypertension Surgical History History of mandibular surgery For mandibular fracture H/O esophagogastroduodenoscopy (09/02/21) H/O thyroidectomy S/P cholecystectomy S/P tonsillectomy and adenoidectomy S/P breast lumpectomy Right breast lumpectomy for benign disease Previous section Family History Father Hypertension Cancer testicular Cardiac abnormality Mother Congestive heart failure (CHF) COPD (chronic obstructive pulmonary disease) Diabetes Cancer ovarian and uterine Family/Other Cancer Maternal aunt- HR2 breast Other CAD (coronary artery disease) Family history of premature coronary artery disease Hyperlipidemia Lung disease Psychiatric illness Rheumatoid arthritis Stroke Denies family history of Lupus Clotting disorder Dementia Chronic kidney disease (CKD) Anesthesia complication Bleeding disorder Social History Smoking and tobacco/nicotine status: current every day tobacco/nicotine user e- cigarettes Quit status (tobacco/nicotine): has quit using Year quit tobacco: July Former quit date comment: Hx of 2 ppd X 25 years, started at age 16 yr. Alcohol intake: former Substance/Drug Use: never Adopted: No Caregiver/support person: No Lives independently: Yes Household members: spouse and family Housing: House Marital status: Number of children: 2 Number of grandchildren: 1 Highest education level completed: Some College, No Degree service: No Current occupational status: employed Current occupation: [employer] Sexually active: Yes Do you think of yourself as: Straight/Heterosexual Current gender identity: Female Balbina/Sabianism: Druze Special balbina needs: No Agree to transfusion: Yes Dietary Habits: Current diet type/program: regular Caffeine: Yes Vitals/I&O/Wt Last Vital Signs Temp 98.1 F 04/11/24 14:45 Pulse 84 04/11/24 14:45 Resp 18 04/11/24 14:45 BP 154/98 04/11/24 14:45 Pulse Ox 92 04/11/24 14:45 O2 Del Method Room Air 04/11/24 14:09 Weight last 48 hrs Weight 316 lb Physical Exam 2 Const: OTHER: GENERAL: Patient is alert, awake and oriented x3. NECK: No jugular vein distension. HEENT: No cyanosis. No icterus. No pallor. HEART: Regular S1 and S2. No murmur, rub or gallop. LUNGS: Clear to auscultate bilaterally. ABDOMEN: Soft, nontender and nondistended. Positive bowel sounds. No guarding, rebound or tenderness. CENTRAL NERVOUS SYSTEM: Grossly nonfocal. EXTREMITIES: Lower extremities without edema bilaterally. Data 04/11/24 12:15 04/11/24 12:15 A&P Assessment and plan (1) Chest pain: Worsening of chest pain with increasing frequency and duration in the patient with prior history of smoking hypertension hyperlipidemia obesity is suspicious for unstable angina we will monitor patient on telemetry and proceed with left heart catheterization in the morning. Continue aspirin and statin start beta- jacky (2) Syncope: Patient has recurrent syncope without any prodrome mild symptom, would like to rule out arrhythmia by monitoring on telemetry, echo will be asked to rule out structural problem if no obvious cardiac causes may need event monitor and need further assessment by neurology to rule out seizures. For now monitor on telemetry. (3) Hyperlipemia, mixed: (4) GERD (gastroesophageal reflux disease): Coding Level [facility] Chest pain R07.9 Syncope R55 Hyperlipemia, mixed E78.2 GERD (gastroesophageal reflux disease) K21.9
[2024-04-11 16:40] LABS: Glucose Point of Care 245 mg/dL (70-110)
[2024-04-11] MEDS: enoxaparin 40 mg/0.4 mL Syringe SUBCUT (17:21)
[2024-04-11] MEDS: pantoprazole 40 mg SDV IVP (17:21)
[2024-04-11] MEDS: insulin lispro 100 unit/1 mL SUBCUT ×2 (17:21→21:14)
--- NOTE | 2024-04-11 17:57 | ECG_ITS ---
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 Measurements Intervals [place] Rate: 98 P: 6 OR: 176 QRS: 38 QRSD: 103 T: 11 QT: 365 QTc: 468 Interpretive Statements SINUS RHYTHM LOW QRS VOLTAGE IN PRECORDIAL LEADS [QRS DEFLECTION < 1.0 mV IN CHEST LEADS] Compared to ECG 04/11/2024 14:03:31 No significant changes Electronically Signed On 04-12-2024 11:07:50 CDT by Sivakumar Tariq M.D. [email or web address]
[2024-04-11 18:57] LABS: Troponin 5 6HR Delta 0.00001 ng/L (0-12)
[2024-04-11 20:42] LABS: Glucose Point of Care 315 mg/dL (70-110)
[2024-04-11] MEDS: OXcarbazepine 300 mg Tablet 1200 MG PO (21:15)
[2024-04-11] MEDS: lisinopril 20 mg Tablet 40 MG PO (21:16)
[2024-04-11] MEDS: morphine IR 15 mg Tablet PO (21:16)
[2024-04-11] MEDS: metoprolol tartrate 25 mg Tablet PO (21:16)
[2024-04-11] MEDS: CLONazepam 1 mg Tablet PO (21:54)
[2024-04-11] MEDS: hyDROXYzine 25 mg Capsule 100 MG PO (21:54)
[2024-04-12] VITALS (45 sets, daily range): BP systolic 104–147; BP diastolic 65–89; PULSE 77–89; RESP 12–27; TEMP 36.6–36.7; O2SAT 91–97
[2024-04-12 04:26] LABS: Basophils # 0.2 10^3/uL (0.0-0.1); Basophils % 1.5 %; Eosinophils # 0.2 10^3/uL (0.0-0.8); Eosinophils % 1.6 %; Lymphocytes # 2.4 10^3/uL (0.8-4.8); Lymphocytes % 24.7 %; Mean Corpuscular HGB Conc 32.4 g/dL (30-55); Mean Corpuscular Hemoglobin 27.3 pg (27-33); Mean Corpuscular Volume 84.4 fl (85-98); Mean Platelet Volume 10.1 fL (7.4-10.4); Monocytes # 1.1 10^3/uL (0.2-0.9); Monocytes % 10.7 %; Neutrophils # 5.91 10^3/uL (1.8-7.7); Nucleated Red Blood Cells % 0 %; Platelet Count 306 10^3/cmm (157-399); White Blood Count 9.85 10^3/uL (3.29-11.43)
[2024-04-12] MEDS: morphine IR 15 mg Tablet PO (04:47)
[2024-04-12 04:59] LABS: Anion Gap 18.5 (5-19); Blood Urea Nitrogen 12 mg/dL (6-20); Calcium 8.7 mg/dL (8.5-10.5); Carbon Dioxide 24 mmol/L (22-29); Chloride 93 mmol/L (98-107); Creatinine Clr Calc Pharmacy 179.8558; Glomerular Filtration Rate 110.2 mL/min (90-130); Glucose 236 mg/dL (65-115); Magnesium 1.7 mg/dL (1.7-2.3); Osmolality Calculated 279 mOsm/kg (285-295); Potassium 4.5 mmol/L (3.5-5.1); Sodium 131 mmol/L (136-145)
[2024-04-12] MEDS: predniSONE 5 mg Tablet PO (06:00)
[2024-04-12 06:23] LABS: Glucose Point of Care 273 mg/dL (70-110)
--- NOTE | 2024-04-12 06:37 | XACV_ITS ---
Exam Room: 2 Ht: 813 cm Wt: 29 kg BSA: 2.13 m2 Gender: Female : 1980 Any Known Allergies: Other Exam Priority: Routine Procedure(s): Procedure Description: Diagnostic procedure Procedure Description: Coronary Angiography Lacy SAINZ; Diagnostic Cath Status: Urgent Diagnostic Findings * No disease noted in the Left Main, Left Anterior Descending, Right, or Circumflex coronary arteries. Conclusions 1. No disease noted in the Left Main, Left Anterior Descending, Right, or Circumflex coronary arteries. Recommendations * Continue current medical management and risk factor modification. * Lifestyle modification. * Extracardiac because for chest pain may need to be considered. Diagnostic RX Recommendation: medical therapy and/or counseling Pressures Phase:Rest AO : 112 / 97 ( 104 ) @ 8:57:00 AM 125 / 105 ( 115 ) @ 9:05:00 AM Clinical Evaluation EBL: 5mL-10mL Procedural Details Pre-Procedure Time Out. Identified patient by full name and date of as verbalized by the patient/guarantor. Does the consent match the physician's order: Yes. Accurate & Complete Informed Consent: Yes. Inpatient/Outpatient History & Physical on Chart: Yes. If H&P is completed, is and addenduem needed: No; If yes, is the addendum complete: N/A. Visualize and Verify Site with Patient/Guarantor: N/A. Relevant Radiology Images available: Yes. Pre-op teaching completed and patient verbalized understanding. The risks, benefits, and alternatives of sedation and/or procedure were discussed by physician. The patient agrees to continue. Procedure started. [facility] Clinical Fraility Score: 3: Managing Well. 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 Chest Pain Symptom Assessment: Atypical Angina. A 18 gauge IV was started in the right anticubital using aseptic technique. Correct patient, site and procedure confirmed by cath team. Current diagnosis: Chest Pain. Oxygen started at 2liters/min via nasal canula. right groin was prepped with chloroprep then draped in the usual sterile fashion. right radial was prepped with chloroprep then draped in the usual sterile fashion. Baseline sample Acquired. HR: 87 BPM. Current Diagnosis : Chest Pain. Physician arrived. Baseline sample Acquired. HR: 83 BPM. Physician scrubbed in. Immediate Pre-Procedure Time Out. Correct Patient: Yes; Correct Procedure: Yes; Correct Site: Yes; Correct Patient Position: Yes; Correct Supplies: Yes; Dried Flammable Prep: Yes; Blood Products Available: N/A;. Lidocaine 1% infiltrated to the right radial. Arterial access obtained. A 5 belizean Chandana catheter in over wire. Multiple views taken of right coronary artery. Catheter redirected to the LCA. Catheter removed over the exchange wire. A 5 belizean TIG catheter in over wire. Multiple views taken of left coronary artery. Catheter removed over the exchange wire. A TR Band was successful obtaining hemostatsis at the Right Radial artery insertion site. Post Procedure: Pulses reassessed and unchanged. PERRLA. Strong, equal hand technical sales representatives bilaterally. No VTE prophylaxis required. Medication's Wasted: Other = Fentanyl 50 mcg. Medication's Wasted: Heparin = 1000 units. Medication's Wasted: Nitro = 49.6 mcg. Medication's Wasted: Lidocaine 1% = 18 mL. Medication's Wasted: Other = Morphine 2 mg. Total IV fluids: 45 mL. Post-op diagnosis: Normal Coronaries. Vital chart was stopped. Complications: None. Estimated blood loss: 5mL-10mL. Responsiveness - Normal response to verbal stimuli; alert and oriented, PERRLA. Airway - Unaffected, no intervention required; spontaneous ventilation. Circulation: W/N/L, pulses unchanged. Nausea/Vomiting: No. Procedure completed. Patient transferred by bed to CPRU. Access Site Site: Right Radial artery Sheath Size: 6 Fr Hemostasis Method: TR Band Hemostasis Success: Successful Procedure Medications Start: 7:31 AM Stop: 7:31 AM Medication: Versed Amount: 1 mg Route: I.V. Start: 7:31 AM Stop: 7:31 AM Medication: Fentanyl Amount: 50 mcg Route: I.V. Start: 7:37 AM Stop: 7:37 AM Medication: Benadryl Amount: 25 mg Route: I.V. Start: 7:40 AM Stop: 7:40 AM Medication: Versed Amount: 1 mg Route: I.V. Start: 7:46 AM Stop: 7:46 AM Medication: Versed Amount: 1 mg Route: I.V. Start: 7:47 AM Stop: 7:47 AM Medication: Fentanyl Amount: 25 mcg Route: I.V. Start: 7:51 AM Stop: 7:51 AM Medication: Nitrogylcerin Amount: 200 mcg Route: I.A. Start: 7:51 AM Stop: 7:51 AM Medication: Versed Amount: 1 mg Route: I.V. Start: 7:52 AM Stop: 7:52 AM Medication: Fentanyl Amount: 25 mcg Route: I.V. Start: 7:55 AM Stop: 7:55 AM Medication: Heparin Amount: 5000 units Route: I.V. Start: 7:57 AM Stop: 7:57 AM Medication: Fentanyl Amount: 50 mcg Route: I.V. Start: 8:01 AM Stop: 8:01 AM Medication: Morphine Amount: 2 mg Route: I.V. Start: 8:02 AM Stop: 8:02 AM Medication: Nitrogylcerin Amount: 200 mcg Route: I.A. I, the attending physician, have reviewed and verified all procedure medications. Yes, all medications given per verbal order History/Risk Factors Hypertension: Yes Dyslipidemia: Yes Peripheral Arterial Disease (PAD): No Myocardial Infarction (IA): No Obesity: Yes Renal Disease: No Tobacco Use: Former Prior Interventions PCI: No CABG: No Valve Surgery: No Report Signatures Finalized by Snehal House MD on 04/12/2024 08:39 AM
--- NOTE | 2024-04-12 07:38 | W.PM.OPSUD ---
Surgery/Procedure H&P Update DATE OF PROCEDURE: April 12, 2024 DATE H&P PERFORMED: 04/10/24 PREOP DIAGNOSIS: unstable angina PLANNED PROCEDURE: Operation Date: 04/12/24 07:30 Proposed Procedures p Cardiac Catheterization(Not Applicable) - Snehal House MD PATIENT REASSESSED PRIOR TO SEDATION, WITH NO CHANGE NOTED: Yes PHYSICAL EXAM: alert, oriented x 3, clear to auscultation bilaterally, regular rate & rhythm and operative site marked AIRWAY EVAL/ANESTHESIA PLAN: normal airway, see other exam findings, ASA III, Risks, benefits & alternatives of sedation and/or procedure discussed and Patient agrees to continue as planned
--- NOTE | 2024-04-12 08:20 | SUR.PHASEI ---
POST OP NOTE Recieved from labor relations representative. Status post cardiac cath via right radial approach. TR band in place. Site is hemostatic. Vitals and assessments per flowsheet. Call light in reach. Informed to call for needs.
[2024-04-12] MEDS: atorvastatin 40 mg Tablet 20 MG PO (09:49)
[2024-04-12] MEDS: BuSPIRONE 10 mg Tablet 30 MG PO (09:49)
[2024-04-12] MEDS: levothyroxine 200 mcg Tablet PO (09:50)
[2024-04-12] MEDS: metoprolol tartrate 25 mg Tablet PO (09:50)
[2024-04-12] MEDS: pantoprazole 40 mg SDV IVP (09:50)
[2024-04-12] MEDS: hyDROXYzine 25 mg Capsule 100 MG PO (09:50)
[2024-04-12] MEDS: isosorbide mononitrate ER 30 mg Tablet PO (09:50)
[2024-04-12] MEDS: hydroxychloroquine 200 mg Tablet PO (09:50)
[2024-04-12] MEDS: insulin lispro 100 unit/1 mL SUBCUT (09:51)
[2024-04-12] MEDS: OXcarbazepine 300 mg Tablet 1200 MG PO (09:55)
--- NOTE | 2024-04-12 10:31 | PM.DCS ---
Discharge Providers Date of Admission: 04/11/24 14:40 Date of Discharge: April 12, 2024 Attending Provider at Admission: Snehal Curtis MD Attending Provider at Discharge: Snehal Curtis MD Primary Care Provider: Elan Kuhn MD Diagnoses at Discharge Discharge Diagnosis (1) Bipolar 1 disorder: Status: Acute (2) Generalized anxiety disorder: Status: Acute (3) ADHD: Status: Acute (4) Hypertension: Status: Acute (5) Diabetes mellitus: Status: Acute Permanent problem details: Type 2 (6) Hyponatremia: Status: Acute (7) Fatty liver: Status: Acute (8) Syncope: Status: Acute (9) Fatigue: Status: Acute (10) Angina of effort: Status: Acute Reason for Visit Reason for Visit: Chest Pain Hospital Course Hospital Course 43-year female who was admitted for management evaluation of her chest pain on exertion, patient has lupus, she is prone to accelerated atherosclerotic vascular disease, decision was made to pursue coronary angiogram, her D-dimer was unremarkable for thromboembolic workup, CBC BMP unremarkable troponin remained flat EKG without ischemic or infarctive changes, no stents were placed, radial access was used during angiogram, nonobstructive coronary artery. I have asked patient to continue her Protonix and follow-up with her PCP to see if she would need an EGD. She is prone to develop ulcers because she takes chronic steroids in the past she has been treated for H. pylori Physical Exam Narrative: Morbidly obese Awake and alert Maller rash GCS 15 Pleasant cooperative S1, S2 No active chest pain Hemodynamically stable Discharge Data Studies Completed and Pending Completed Studies During Hospitalization Category Date Time Status COMMERCIAL PHOTOGRAPHER request for service Routine Exams 04/12/24 06:37 Completed XR chest 1V portable [id number] Stat Exams 04/11/24 11:57 Completed CV. echo complete* [id number] Routine Ultrasound 04/11/24 15:21 Completed Radiology Impressions Chest X-Ray 04/11/24 11:57 Impression: No acute lung process is identified. Laboratory Results WBC 9.85 10^3/uL (3.29-11.43) 04/12/24 03:37 RBC 4.50 10^6/uL (3.85-5.65) 04/12/24 03:37 Hgb 12.30 g/dL (11.27-16.99) 04/12/24 03:37 Hct 38.0 % (36-47) 04/12/24 03:37 MCV 84.4 fl (85-98) L 04/12/24 03:37 MCH 27.3 pg (27-33) 04/12/24 03:37 MCHC 32.4 g/dL (30-55) 04/12/24 03:37 RDW 14.0 % (12.1-15.1) 04/12/24 03:37 Plt Count 306 10^3/cmm (157-399) 04/12/24 03:37 MPV 10.1 fL (7.4-10.4) 04/12/24 03:37 Neut % (Auto) 60.0 % 04/12/24 03:37 Lymph % (Auto) 24.7 % 04/12/24 03:37 [place] % (Auto) 10.7 % 04/12/24 03:37 Eos % (Auto) 1.6 % 04/12/24 03:37 Baso % (Auto) 1.5 % 04/12/24 03:37 Neut # (Auto) 5.91 10^3/uL (1.8-7.7) 04/12/24 03:37 Lymph # (Auto) 2.4 10^3/uL (0.8-4.8) 04/12/24 03:37 [place] # (Auto) 1.1 10^3/uL (0.2-0.9) H 04/12/24 03:37 Eos # (Auto) 0.2 10^3/uL (0.0-0.8) 04/12/24 03:37 Baso # (Auto) 0.2 10^3/uL (0.0-0.1) H 04/12/24 03:37 Nucleated RBC % (auto) 0 % 04/12/24 03:37 Nucleated RBCs # 0.0 /100WBC 04/12/24 03:37 D-Dimer <= 0.27 ug/mLFEU (0-0.59) 04/11/24 12:15 Specimen Type Arterial 04/11/24 13:18 Sample Site Brachial, left 04/11/24 13:18 ABG pH 7.39 (7.35-7.45) 04/11/24 13:18 ABG pCO2 36.2 mmHg (35-45) 04/11/24 13:18 ABG pO2 85.0 mmHg (80.0-100.0) 04/11/24 13:18 ABG PO2/FiO2 Ratio 404 04/11/24 13:18 ABG HCO3 21.8 mmol/L (22-26) L 04/11/24 13:18 ABG O2 Saturation 97.2 04/11/24 13:18 ABG Base Excess -2.7 mmol/L (-2.0-2.0) L 04/11/24 13:18 Aric Test Pos 04/11/24 13:18 A-a O2 Gradient 2.5 mmHg (5-10) L 04/11/24 13:18 Hematocrit 41.5 % (37-47) 04/11/24 13:18 Hgb O2 Saturation 95.3 % (95-100) 04/11/24 13:18 Carboxyhemoglobin 0.8 %THgb (0.4-20.1) 04/11/24 13:18 Methemoglobin 1.1 % (0.4-1.5) 04/11/24 13:18 Total Hemoglobin 13.5 g/dL (12-16) 04/11/24 13:18 Sodium 130.0 mmol/L (131-143) L 04/11/24 13:18 Potassium 4.3 mmol/L (3.5-5.0) 04/11/24 13:18 Glucose 277.0 mg/dL (70-115) H 04/11/24 13:18 Ionized Calcium 1.2 mmol/L (1.1-1.4) 04/11/24 13:18 O2 Delivery Device Room air 04/11/24 13:18 FiO2 21.0 % 04/11/24 13:18 Hollow Handle Knife Assembler ID Cak 04/11/24 13:18 Sodium 131 mmol/L (136-145) L 04/12/24 03:37 Potassium 4.5 mmol/L (3.5-5.1) 04/12/24 03:37 Chloride 93 mmol/L (98-107) L 04/12/24 03:37 Carbon Dioxide 24 mmol/L (22-29) 04/12/24 03:37 Anion Gap 18.5 (5-19) 04/12/24 03:37 BUN 12 mg/dL (6-20) 04/12/24 03:37 Creatinine 0.6 mg/dL (0.5-0.9) 04/12/24 03:37 GFR Calculation 110.2 mL/min (90-130) 04/12/24 03:37 Glucose 236 mg/dL (65-115) H 04/12/24 03:37 POC Glucose 273 mg/dL (70-110) H 04/12/24 06:19 Estimat Average Glucose 209 04/11/24 12:15 Hemoglobin A1c 8.9 % (4.0-6.0) H 04/11/24 12:15 Calculated Osmolality 279 mOsm/kg (285-295) L 04/12/24 03:37 Calcium 8.7 mg/dL (8.5-10.5) 04/12/24 03:37 Magnesium 1.7 mg/dL (1.7-2.3) 04/12/24 03:37 Total Bilirubin 0.2 mg/dL (0.15-1.2) 04/11/24 12:15 AST 18 U/L (0-32) 04/11/24 12:15 ALT 25 U/L (0-33) 04/11/24 12:15 Alkaline Phosphatase 105 U/L (35-105) 04/11/24 12:15 Troponin T Baseline < 6 ng/L (0-10) 04/11/24 12:15 Troponin T 120 Minute 6.00 ng/L (0-10) 04/11/24 13:42 Delta Troponin T 0.99176 ABS# (0-10) 04/11/24 13:42 Troponin T Hi Sens 6Hr 6.00 ng/L (0-10) 04/11/24 18:01 Troponin T Hi Sens 6Hr Delta 0.50290 ng/L (0-12) 04/11/24 18:01 NT-Pro-B Natriuret Pep < 36 pg/mL (0-125) 04/11/24 12:15 Total Protein 7.9 g/dL (6.6-8.7) 04/11/24 12:15 Albumin 4.9 g/dL (3.5-5.2) 04/11/24 12:15 Globulin 3.0 g/dL (1.3-4.6) 04/11/24 12:15 Vitamin B12 603 pg/mL (232-1245) 04/11/24 12:15 Vitals Last Vital Signs Temp 98.0 F 04/12/24 03:03 Pulse 82 04/12/24 09:00 Resp 21 H 04/12/24 09:00 BP 133/89 04/12/24 09:00 Pulse Ox 91 04/12/24 09:00 O2 Del Method Room Air 04/12/24 09:15 Discharge Plan Discharge Patient Disposition: Home Condition: Stable Prescriptions: Continued trazodone 100 mg tablet 200 mg PO BEDTIME pantoprazole [Protonix] 40 mg tablet,delayed release (DR/EC) 40 mg PO BID Qty: 180 1RF azathioprine 50 mg tablet 100 mg PO BID Qty: 120 4RF hydroxychloroquine 200 mg tablet 200 mg PO BID Qty: 180 1RF epinephrine [EpiPen 2-Edward] 0.3 mg/0.3 mL auto-injector 0.3 mg IM Q15M PRN (Reason: anaphylaxis) Qty: 2 0RF Rx Instructions: for 2 doses mecobalamin (vitamin B12) 1,000 mcg tablet,disintegrating 1,000 mcg sublingual DAILY Qty: 30 6RF Rx Instructions: place tablet under tongue and allow to dissolve for at least30 secs before swallowing Ozempic 1 mg/dose (4 mg/3 mL) pen injector 1 mg SUBCUT Q7D Qty: 3 1RF Ozempic 0.25 mg or 0.5 mg (2 mg/3 mL) pen injector 0.5 mg SUBCUT Q7D 30 Days Qty: 3 0RF Rx Instructions: ON SUNDAYS for one month levothyroxine 200 mcg tablet 200 mcg PO DAILY Qty: 90 1RF albuterol sulfate [Ventolin HFA] 90 mcg/actuation HFA aerosol inhaler 2 puff INHALATION Q4H PRN (Reason: Shortness Of Breath) Qty: 8.5 3RF (DME) insulin syringes (disposable) 1 mL syringe See Rx Instructions .ROUTE .MEDSUPPLY Qty: 25 1RF Rx Instructions: As directed atorvastatin 20 mg tablet 20 mg PO DAILY Qty: 90 3RF montelukast [Singulair] 10 mg tablet 10 mg PO DAILY Qty: 90 3RF oxcarbazepine [Trileptal] 600 mg tablet See Rx Instructions PO .COMPLEX Rx Instructions: TAKE 2 TABLETS BY MOUTH IN THE MORNING, 1 TABLET AT NOON, AND 2 TABLETS AT BEDTIME. Rexulti 4 mg tablet 4 mg PO QAM Rx Instructions: administer on day 8 for starting therapy albuterol sulfate 2.5 mg /3 mL (0.083 %) solution for nebulization 2.5 mg inhalation Q4H PRN (Reason: Shortness Of Breath) Qty: 90 3RF lisinopril 40 mg tablet 40 mg PO BEDTIME Qty: 90 2RF ondansetron 4 mg tablet,disintegrating See Rx Instructions .ROUTE .COMPLEX Qty: 60 1RF Dose Instruction: DISSOLVE ONE TABLET BY MOUTH EVERY 6 HOURS NEEDED FOR NAUSEA AND VOMITING Rx Instructions: DISSOLVE ONE TABLET BY MOUTH EVERY 6 HOURS NEEDED FOR NAUSEA AND VOMITING gabapentin 600 mg tablet 600 mg PO TID Qty: 180 1RF hydrocodone-acetaminophen 5-325 mg tablet 1 tab PO .Q8hrs PRN (Reason: pain (scale score 7-10)) 30 Days Qty: 60 0RF diphenhydramine HCl [Benadryl Allergy] 25 mg Tablet 25 - 50 mg PO PRN cholecalciferol (vitamin D3) 1,250 mcg (50,000 unit) capsule 50,000 unit PO Q7D Rx Instructions: ON TUESDAY cetirizine 10 mg tablet 10 mg PO BID Qty: 60 0RF ziprasidone HCl 80 mg Capsule 80 mg PO BID buspirone 30 mg tablet 30 mg PO BID prednisone 20 mg tablet See Rx Instructions PO .COMPLEX PRN (Reason: joint pain flare) Rx Instructions: Take 1 tablet by mouth daily till feeling better, then can stay on one half tablet daily. prednisone 5 mg tablet 5 mg PO QAM torsemide 20 mg tablet See Rx Instructions .ROUTE .COMPLEX Rx Instructions: TAKE 2 TABLETS BY MOUTH EVERY MORNING for 7 days THEN ONE EVERY DAY EVERY MORNING THEREAFTER clonazepam 1 mg tablet 1 mg PO BEDTIME hydroxyzine pamoate 50 mg capsule 100 mg PO BID ketorolac 10 mg tablet 1 mg PO Q4H PRN (Reason: Pain) furosemide 20 mg tablet 20 mg PO QAM PRN (Reason: Edema) dextroamphetamine-amphetamine 30 mg capsule,extended release 24hr 1 cap PO QAM vilazodone 10 mg tablet 10 mg PO QAM Discharge Orders: Discharge Order (Routine); Ordered 04/12/24 Ordered By: Snehal Curtis Referrals: Elan Kuhn MD [Primary Care Provider] - Patient Instructions: Opioid Safety Discharge Attestations Time Spent in Discharge Care*: greater than 30 min Status at Discharge: Cognitive status at discharge: cognitively intact, Behavioral status at discharge: cooperative, Quality Metrics Clinical Quality Measures [ No reported AMI, CVA or VTE this stay] Coding Level of Care Code Acute Code for Chg Fwd Diagnoses Bipolar 1 disorder F31.9 Generalized anxiety disorder F41.1 ADHD F90.9 Hypertension I10 Diabetes mellitus E11.9 Hyponatremia E87.1 Fatty liver K76.0 Syncope R55 Fatigue R53.83 Angina of effort I20.89
[2024-04-12] MEDS: ondansetron 2 mg/ML SDV 2 mL 4 MG IVP (11:43)
[2024-04-12 11:47] LABS: Glucose Point of Care 231 mg/dL (70-110)
[2024-04-12] MEDS: OXcarbazepine 300 mg Tablet 600 MG PO (15:21)
--- NOTE | 2024-04-12 15:36 | PC.NURSE ---
Discharge Note Patient discharged to [home] via [w/c to POV] accompanied by [ and daughter]. Discharge instructions reviewed with patient and/or sales representative girls' apparel. No Mobile pharmacy medications and/or prescriptions provided as no new medications were ordered. Belongings/home medications returned.
--- NOTE | 2024-04-12 17:13 | PC.NURSE ---
Notified the pt's Gage via telephone that we have made a f/u appointment for April 23, 2024 at 13:30 PM. Pt's stated that he wrote it on their calendar and read the information back to me.
== END 2024-04-12 15:38 | disposition home or self-care (01) ==
LOC: ER 13:54 → CSU 04-12 09:04
PROVIDERS: Emergency Medicine; Internal Medicine; Admitting Provider Internal Medicine; Emergency Provider Family Medicine; PCP Family Medicine; Visit Provider Internal Medicine
DX: I20.89 Other forms of angina pectoris (principal); R53.83 Other fatigue; R55 Syncope and collapse; K76.0 Fatty (change of) liver, not elsewhere classified; E87.1 Hypo-osmolality and hyponatremia; E11.9 Type 2 diabetes mellitus without complications; I10 Essential (primary) hypertension; F90.9 Attention-deficit hyperactivity disorder, unspecified type; F41.1 Generalized anxiety disorder; F31.9 Bipolar disorder, unspecified; M32.9 Systemic lupus erythematosus, unspecified; Z87.891 Personal history of nicotine dependence; G47.33 Obstructive sleep apnea (adult) (pediatric); E66.01 Morbid (severe) obesity due to excess calories; Z68.43 Body mass index [BMI] 50.0-59.9, adult; E78.2 Mixed hyperlipidemia; F17.290 Nicotine dependence, other tobacco product, uncomplicated
CPT/HCPCS: 36415; 36416; 36600; 71045; 80048; 80051; 80053; 82330; 82607; 82805; 82962; 83036; 83735; 83880; 84484; 85025; 85378; 93005; 93306; 93454; 94660; 96372; 96374; 96375; 99152; 99153; 99285; C1769; C1887; C1894; G0378; J0360; J1200; J1644; J1650; J1815; J2250; J2270; J2405; J2470; J3010; J3490; J7030; J7512; Q9967

== ENCOUNTER → 2024-04-23 13:17 | Outpatient (BNVA) | payer OTHER, MEDICAID, SELFPAY | PROVIDERS: PCP Family Medicine; Visit Provider Nurse Practitioner Family | DX: I10 Essential (primary) hypertension (principal); R07.9 Chest pain, unspecified | CPT/HCPCS: 80048; 99214 ==

== ENCOUNTER → 2024-04-26 12:45 | Outpatient (BNVA) | payer OTHER, MEDICAID, SELFPAY | PROVIDERS: PCP Family Medicine; Visit Provider Orthopaedic Surgery | DX: Z01.818 Encounter for other preprocedural examination (principal); Z09 Encounter for follow-up examination after completed treatment for conditions other than malignant neoplasm; M43.16 Spondylolisthesis, lumbar region; E11.9 Type 2 diabetes mellitus without complications | CPT/HCPCS: 80053; 81003; 81015; 83036; 85025; 99214 ==

== ENCOUNTER → 2024-05-01 08:41 | Outpatient (BNVA) | payer OTHER, MEDICAID, SELFPAY | PROVIDERS: PCP Family Medicine; Visit Provider Internal Medicine | DX: E11.9 Type 2 diabetes mellitus without complications (principal); E78.2 Mixed hyperlipidemia; R53.83 Other fatigue; E03.9 Hypothyroidism, unspecified; E27.8 Other specified disorders of adrenal gland; K76.0 Fatty (change of) liver, not elsewhere classified; Z01.818 Encounter for other preprocedural examination; Z79.4 Long term (current) use of insulin; Z79.890 Hormone replacement therapy; Z79.85 Long-term (current) use of injectable non-insulin antidiabetic drugs | CPT/HCPCS: 36415; 83036; 84439; 84443; 99214 ==

== ENCOUNTER → 2024-05-02 14:02 | Outpatient (BNVA) | payer OTHER, MEDICAID, SELFPAY | PROVIDERS: PCP Family Medicine; Visit Provider Dermatology | DX: M32.10 Systemic lupus erythematosus, organ or system involvement unspecified (principal); B35.3 Tinea pedis; L21.8 Other seborrheic dermatitis; L53.8 Other specified erythematous conditions | CPT/HCPCS: 99214 ==

== ENCOUNTER 2024-05-03 07:42 | Oncology outpatient (recurring) (ONCR) | payer OTHER, MEDICAID, SELFPAY ==
[2024-05-03] VITALS (15 sets, daily range): BP systolic 152–177; BP diastolic 84–101; PULSE 75–94; RESP 16–18; TEMP 36.3–37.2; O2SAT 93–98
[2024-05-03] MEDS: acetaminophen 325 mg Tablet 650 MG PO (08:59)
[2024-05-03] MEDS: sodium chloride 0.9% 500 ML 75 ML IV (08:59)
[2024-05-03] MEDS: methylPREDNISolone sod succ 125 mg/2 mL INJ IVP (09:00)
[2024-05-03] MEDS: diphenhydrAMINE 50 mg/mL SDV 1mL IVP (09:08)
[2024-05-03] MEDS: rituximab-abbs 1,000 MG in sodium chloride 0.9% 500 ML 35 MG IV (09:51)
== END 2024-05-28 23:59 | disposition home or self-care (01) ==
PROVIDERS: PCP Family Medicine; Visit Provider Internal Medicine
DX: M32.9 Systemic lupus erythematosus, unspecified (principal); Z79.899 Other long term (current) drug therapy
CPT/HCPCS: 96375; 96413; 96415; J1200; J2919; J7040; Q5115

== ENCOUNTER 2024-05-07 08:24 | Outpatient (CLI) | payer OTHER, MEDICAID, SELFPAY ==
[2024-05-07 09:33] LABS: Alanine Aminotransferase 15 U/L (0-33); Albumin Level 4.1 g/dL (3.5-5.2); Alkaline Phosphatase 87 U/L (35-105); Anion Gap 13.6 (5-19); Aspartate Amino Transferase 13 U/L (0-32); Blood Urea Nitrogen 8 mg/dL (6-20); Calcium 8.6 mg/dL (8.5-10.5); Carbon Dioxide 26 mmol/L (22-29); Chloride 87 mmol/L (98-107); Chol HDL Ratio 2.01 mg/dL (0.0-4.40); Cholesterol 139 mg/dL (0-200); Globulin 2.8 g/dL (1.3-4.6); Glomerular Filtration Rate 175.9 mL/min (90-130); Glucose 94 mg/dL (65-115); HDL Cholesterol 69 mg/dL (60-100); LDL Cholesterol Calculated 46 mg/dL (50-129); LDL HDL Ratio 0.67 RATIO (0.00-3.22); Osmolality Calculated 252 mOsm/kg (285-295); Potassium 4.6 mmol/L (3.5-5.1); Sodium 122 mmol/L (136-145); Total Bilirubin 0.2 mg/dL (0.15-1.2); Total Protein 6.9 g/dL (6.6-8.7); Triglycerides 119 mg/dL (0-150)
[2024-05-07 09:44] LABS: Estmated Average Glucose 192; Hemoglobin A1C 8.3 % (4.0-6.0)
[2024-05-07 09:46] LABS: Creatinine Urine, Random 57 mg/dL (28-217); Microalbum Creatinine Ratio Ur 18 mg/dL (0-20); Microalbumin Random Urine 1 ug/dL (0-20)
== END 2024-05-07 08:25 | disposition home or self-care (01) ==
LOC: LAB 08:25
PROVIDERS: PCP Family Medicine; Visit Provider Internal Medicine
DX: E03.9 Hypothyroidism, unspecified (principal); E11.9 Type 2 diabetes mellitus without complications; E78.2 Mixed hyperlipidemia; E27.8 Other specified disorders of adrenal gland
CPT/HCPCS: 36415; 80053; 80061; 82044; 83036; 84439; 84443

== ENCOUNTER 2024-05-11 14:29 | Outpatient (CLI) | payer OTHER, MEDICAID, SELFPAY ==
[2024-05-11 15:06] LABS: Anion Gap 16.4 (5-19); Blood Urea Nitrogen 4 mg/dL (6-20); Calcium 9.1 mg/dL (8.5-10.5); Carbon Dioxide 23 mmol/L (22-29); Chloride 83 mmol/L (98-107); Glomerular Filtration Rate 175.9 mL/min (90-130); Glucose 121 mg/dL (65-115); Osmolality Calculated 244 mOsm/kg (285-295); Potassium 4.4 mmol/L (3.5-5.1)
[2024-05-11 17:00] LABS: Sodium 118 mmol/L (136-145)
== END 2024-05-11 14:30 | disposition home or self-care (01) ==
LOC: LAB 14:30
PROVIDERS: PCP Family Medicine; Visit Provider Internal Medicine
DX: E87.1 Hypo-osmolality and hyponatremia (principal)
CPT/HCPCS: 36415; 80048

== ENCOUNTER → 2024-05-21 09:30 | Outpatient (BNVA) | payer OTHER, MEDICAID, SELFPAY | PROVIDERS: PCP Family Medicine; Visit Provider Internal Medicine | DX: E03.9 Hypothyroidism, unspecified (principal); E11.9 Type 2 diabetes mellitus without complications; E78.2 Mixed hyperlipidemia; R53.83 Other fatigue; E27.8 Other specified disorders of adrenal gland; K76.0 Fatty (change of) liver, not elsewhere classified; Z79.4 Long term (current) use of insulin; Z79.890 Hormone replacement therapy; E87.1 Hypo-osmolality and hyponatremia | CPT/HCPCS: 99215 ==

== ENCOUNTER → 2024-05-22 07:59 | Outpatient (BNVA) | payer OTHER, MEDICAID, SELFPAY | PROVIDERS: PCP Family Medicine; Visit Provider Orthopaedic Surgery | DX: M54.50 Low back pain, unspecified (principal); Z09 Encounter for follow-up examination after completed treatment for conditions other than malignant neoplasm | CPT/HCPCS: 36415; 80048; 99213 ==

== ENCOUNTER 2024-05-28 13:58 | Emergency (ER) | payer OTHER, MEDICAID, SELFPAY ==
[2024-05-28 14:04] VITALS: BP 170/92; PULSE 93; TEMP 36.7; O2SAT 95; BMI 52.7
--- NOTE | 2024-05-28 15:26 | W.ED.BACK ---
HPI - Back Pain/Injury General: Chief Complaint: Back Pain/Injury Stated Complaint: back pain, surgery (5days), Time Seen by Provider: 05/28/24 15:26 Source: patient Mode of arrival: wheelchair Limitations: no limitations History of Present Illness: Patient is a 44-year-old female presents to ED today with complaint of back pain. Patient underwent back surgery by Dr. Han approximately 5 days ago. Procedure performed listed below: Procedure: 1. L4/5 Interbody fusion with posterolateral fusion 2. Posterior spine instrumentation L4 to 5 3. Cage at L4/5 4. L4-5 laminectomy with facetectomy 5. use of autograft from same incision 6. allograft 7. Bone marrow aspirate from iliac crest 8. Use of computer navigation/stereotactic for spine Patient states she was doing okay following surgery until yesterday evening when she went to stand and felt something crunch/pop in my back and has had worsening pain since. She is not complaining of numbness, tingling, loss of sensation to her legs. She denies saddle anesthesia. She states immediately after episode/standing, she urinated on herself but she has not had any further episodes of urinary incontinence or retention. She is not having any bowel incontinence. MD elicited complaint: back pain Pertinent past history: back surgery Onset (ago): day(s) (yesterday evening) Timing: constant Severity: severe Pain scale (0-10): 9 Location: lumbar spine Radiation: none Exacerbating factors: movement Relieving factors: immobilization Context: other (while standing) Associated symptoms: Reports no associated symptoms and difficulty walking (secondary to pain in her back); Deny abdominal pain, dysuria, fever(s), hematuria, nausea or vomiting Work related injury: No Related Data Home Medications Medication Instructions Recorded Confirmed diphenhydramine HCl 25 mg tablet 25 - 50 mg PO PRN 04/08/20 05/22/24 (Benadryl Allergy) ziprasidone HCl 80 mg capsule 80 mg PO BID 08/24/22 05/22/24 oxcarbazepine 600 mg tablet See Rx Instructions PO .COMPLEX 07/13/23 05/22/24 (Trileptal) buspirone 30 mg tablet 30 mg PO BID 08/26/23 05/22/24 clonazepam 1 mg tablet 1 mg PO BEDTIME Anxiety 04/11/24 05/22/24 dextroamphetamine-amphetamine ER 1 cap PO QAM 04/11/24 05/22/24 30 mg 24hr capsule,extend release trazodone 100 mg tablet 200 mg PO BEDTIME 04/11/24 05/22/24 vilazodone 10 mg tablet 10 mg PO QAM 04/11/24 05/22/24 insulin glargine 100 unit/mL (3 60 unit SUBCUT QPM 05/22/24 05/22/24 mL) subcutaneous pen (Lantus Solostar U-100 Insulin) ondansetron 4 mg disintegrating 4 mg PO 3XD PRN n/v 05/22/24 05/22/24 tablet Previous Rx's Medication Instructions Recorded albuterol sulfate 90 mcg/actuation 2 puff inhalation Q4H PRN 09/20/22 aerosol inhaler (Ventolin HFA) Shortness Of Breath #8.5 grams albuterol sulfate 2.5 mg/3 mL 2.5 mg (3 mL) inhalation Q4H PRN 12/02/22 (0.083 %) solution for nebulization Shortness Of Breath #90 mL insulin syringes (disposable) 1 mL #25 ea 04/18/23 lisinopril 40 mg tablet 40 mg PO BEDTIME #90 tabs 12/12/23 gabapentin 600 mg tablet 600 mg PO TID #180 tabs 12/22/23 epinephrine 0.3 mg/0.3 mL 0.3 mg (0.3 mL) IM Q15M PRN 12/23/23 injection, auto-injector (EpiPen anaphylaxis #2 ea 2-Edward) mecobalamin (vitamin B12) 1,000 1,000 mcg sublingual DAILY #30 tabs 02/02/24 mcg disintegrating tablet,sublingual levothyroxine 200 mcg tablet 200 mcg PO DAILY #90 tabs 03/07/24 azathioprine 50 mg tablet 100 mg (2 x 50 mg) PO BID #120 tabs 03/28/24 hydroxychloroquine 200 mg tablet 200 mg PO BID #180 tabs 03/28/24 atorvastatin 20 mg tablet 20 mg PO DAILY #90 tabs 05/01/24 blood-glucose meter,continuous #1 ea 05/01/24 (Dexcom G7 Line O Scribe Operator) blood-glucose sensor (Dexcom G7 #3 ea 05/01/24 Sensor device) semaglutide 2 mg/dose (8 mg/3 mL) 2 mg (0.75 mL) SUBCUT Q7D #3 mL 05/01/24 subcutaneous pen injector (Ozempic) Bone Growth Stimulator #1 ea 05/02/24 furosemide 20 mg tablet 20 mg PO QAM PRN Edema #90 tabs 05/09/24 montelukast 10 mg tablet 10 mg PO DAILY #90 tabs 05/14/24 (Singulair) levothyroxine 25 mcg tablet 25 mcg PO DAILY #60 tabs 05/21/24 oxycodone-acetaminophen 10 mg-325 1 tab PO Q4H PRN pain 7 days #42 05/24/24 mg tablet tabs Allergies Allergy/AdvReac Type Severity Reaction Status Date / Time anifrolumab-fnia Allergy Severe hives Verified 05/28/24 14:07 [From Saphnelo] amoxicillin Allergy ALGY-Rash Verified 05/28/24 14:07 bee venom protein (honey bee) Allergy ALGY-Anaphy Verified 05/28/24 14:07 laxis cinnamon Allergy anaphylacti Verified 05/28/24 14:07 c desvenlafaxine [From Pristiq] Allergy Unknown Verified 05/28/24 14:07 fluoxetine [From Prozac] Allergy Unknown Verified 05/28/24 14:07 Latex, Natural Rubber Allergy ALGY-Rash Verified 05/28/24 14:07 oxytocin [From Pitocin] Allergy ADR-Itching Verified 05/28/24 14:07 Penicillins Allergy ALGY-Hives Verified 05/28/24 14:07 Sulfa (Sulfonamide Allergy ALGY-Rash Verified 05/28/24 14:07 Antibiotics) leflunomide AdvReac Intermediate gastric Verified 05/28/24 14:07 Review of Systems Const: Denies: fever(s) Card: Denies: chest pain Resp: Denies: dyspnea GI: Denies: abdominal pain, nausea, vomiting, diarrhea or constipation : Denies: flank pain, dysuria, hematuria or pelvic pain Musc: Reports: back pain; Denies: neck pain, extremity pain, extremity swelling, joint pain or joint swelling Skin/Breast: Denies: rash Neuro: Reports: difficulty walking (secondary to pain in her back); Denies: headache(s), numbness in extremities, weakness in extremities, sensory changes or dizziness [facility] ED PFSH: Medical History Hyponatremia Hypertension Syncope Angina of effort Accelerated essential hypertension Chest pain ADHD Generalized anxiety disorder Fatty liver Fatigue B12 deficiency Lung injury associated with vaping Contact dermatitis SLE (systemic lupus erythematosus related syndrome) Hypothyroidism COPD (chronic obstructive pulmonary disease) Leukocytosis Rosacea Positive double stranded DNA antibody test Labral tear of left hip joint KI (obstructive sleep apnea) Morbid obesity Bipolar 1 disorder PTSD (post-traumatic stress disorder) Chronic urticaria Insomnia Mild intermittent asthma Allergic rhinitis GERD (gastroesophageal reflux disease) Shingles 4th occurrence Hyperlipemia, mixed Helicobacter pylori gastritis Mandibular fracture Diabetes mellitus Type 2 Depression Surgical History History of mandibular surgery For mandibular fracture H/O esophagogastroduodenoscopy (09/02/21) H/O thyroidectomy S/P cholecystectomy S/P tonsillectomy and adenoidectomy S/P breast lumpectomy Right breast lumpectomy for benign disease Previous section Family History Father Hypertension Cancer testicular Cardiac abnormality Mother Congestive heart failure (CHF) COPD (chronic obstructive pulmonary disease) Diabetes Cancer ovarian and uterine Family/Other Cancer Maternal aunt- HR2 breast Other CAD (coronary artery disease) Family history of premature coronary artery disease Hyperlipidemia Lung disease Psychiatric illness Rheumatoid arthritis Stroke Denies family history of Lupus Clotting disorder Dementia Chronic kidney disease (CKD) Anesthesia complication Bleeding disorder Social History Smoking and tobacco/nicotine status: never used tobacco/nicotine Quit status (tobacco/nicotine): has quit using Year quit tobacco: July Former quit date comment: Hx of 2 ppd X 25 years, started at age 16 yr. 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 Sexually active: Yes Do you think of yourself as: Straight/Heterosexual Current gender identity: Female Balbina/Adventist: Restorationism Special balbina needs: No Agree to transfusion: Yes Physical Exam Const: COMMON NORMALS: patient oriented x3, no limitations, alert and well nourished GENERAL APPEARANCE: cooperative NUTRITIONAL APPEARANCE: obese morbidly obese (BMI 52.8) ORIENTATION/CONSCIOUSNESS: Yes awake, Yes oriented to person, Yes oriented to place and Yes oriented to time : COMMON NORMALS: Yes no CVA tenderness BLADDER/KIDNEY EXAM: Yes no CVA tenderness Back/Pelvis: COMMON NORMALS: no CVA tenderness THORACIC SPINE/UPPER BACK: No thoracic spinal tenderness LUMBAR SPINE/LOWER BACK: Yes ROM limited, Yes lumbar spinal tenderness and No paraspinal muscle spasm PELVIS: Yes buttocks normal and No sciatic notch tenderness SACROILIAC JOINTS: Yes SI joints normal SACRUM: no tenderness COCCYX: no tenderness OTHER: surgical incision appears clean/well dressed Extremity: COMMON NORMALS: normal to inspection, capillary refill normal, no clubbing, cyanosis or edema, no calf tenderness and no pedal edema GENERAL: Yes normal exam except as noted Neuro: COMMON NORMALS: patient oriented x3, moves all extremities, no focal motor deficits and no sensory deficits noted SENSORIUM/ORIENTATION: Yes alert, Yes oriented to person, Yes oriented to place and Yes oriented to time GAIT: Yes Unable to assess gait Course Vital Signs: Vital signs: Vital Signs Temperature 98.0 F 05/28/24 14:04 Pulse Rate 93 05/28/24 14:04 Respiratory Rate 18 05/28/24 15:45 Blood Pressure 170/92 05/28/24 14:04 Pulse Oximetry 95 05/28/24 14:04 Oxygen Delivery Me thod Room Air 05/28/24 14:04 MDM - Back Pain/Injury Medical Decision Making Patient has no acute neurologic deficits on history or by physical examination. Lumbar XR showing no apparent complication of her recent fusion. Patient states she feels much better after IV medications given here. She is cleared for discharge with return precautions. I would like her to contact Dr. Han's office tomorrow for further instructions. She does have follow-up with him scheduled for next week. Medical Records I reviewed the patient's medical records. Labs Radiology Impressions Lumbar Spine X-Ray 05/28/24 15:34 IMPRESSION: Posterior instrumented fusion at L4-L5 without apparent complication. No acute osseous findings. All radiology interpretation(s) finalized by discharge Discharge Plan Discharge Patient Disposition: Home Clinical Impression: Lower back pain Qualifiers: Chronicity: acute Back pain laterality: midline Sciatica presence: without sciatica Qualified Code(s): M54.50 - Low back pain, unspecified Condition: Stable Prescriptions: No Action trazodone 100 mg tablet 200 mg PO BEDTIME azathioprine 50 mg tablet 100 mg PO BID Qty: 120 4RF hydroxychloroquine 200 mg tablet 200 mg PO BID Qty: 180 1RF epinephrine [EpiPen 2-Edward] 0.3 mg/0.3 mL auto-injector 0.3 mg IM Q15M PRN (Reason: anaphylaxis) Qty: 2 0RF Rx Instructions: for 2 doses mecobalamin (vitamin B12) 1,000 mcg tablet,disintegrating 1,000 mcg sublingual DAILY Qty: 30 6RF Rx Instructions: place tablet under tongue and allow to dissolve for at least30 secs before swallowing levothyroxine 200 mcg tablet 200 mcg PO DAILY Qty: 90 1RF (DME) Dexcom G7 Sensor Device See Rx Instructions .Route Qty: 3 3RF Rx Instructions: As directed (DME) Dexcom G7 Line O Scribe Operator Misc See Rx Instructions .Route Qty: 1 0RF Rx Instructions: As directed Ozempic 2 mg/dose (8 mg/3 mL) pen injector 2 mg SUBCUT Q7D Qty: 3 3RF Rx Instructions: take 2mg weekly albuterol sulfate [Ventolin HFA] 90 mcg/actuation HFA aerosol inhaler 2 puff INHALATION Q4H PRN (Reason: Shortness Of Breath) Qty: 8.5 3RF (DME) insulin syringes (disposable) 1 mL syringe See Rx Instructions .ROUTE .MEDSUPPLY Qty: 25 1RF Rx Instructions: As directed oxcarbazepine [Trileptal] 600 mg tablet See Rx Instructions PO .COMPLEX Rx Instructions: TAKE 2 TABLETS BY MOUTH IN THE MORNING, 1 TABLET AT NOON, AND 2 TABLETS AT BEDTIME. levothyroxine 25 mcg tablet 25 mcg PO DAILY Qty: 60 3RF Rx Instructions: take 25mcg with [id number] daily albuterol sulfate 2.5 mg /3 mL (0.083 %) solution for nebulization 2.5 mg inhalation Q4H PRN (Reason: Shortness Of Breath) Qty: 90 3RF lisinopril 40 mg tablet 40 mg PO BEDTIME Qty: 90 2RF gabapentin 600 mg tablet 600 mg PO TID Qty: 180 1RF atorvastatin 20 mg tablet 20 mg PO DAILY Qty: 90 0RF (DME) Bone Growth Stimulator See Rx Instructions .Route .MEDSUPPLY Qty: 1 0RF Rx Instructions: As directed furosemide 20 mg tablet 20 mg PO QAM PRN (Reason: Edema) Qty: 90 0RF montelukast [Singulair] 10 mg tablet 10 mg PO DAILY Qty: 90 0RF diphenhydramine HCl [Benadryl Allergy] 25 mg Tablet 25 - 50 mg PO PRN ondansetron 4 mg tablet,disintegrating 4 mg PO 3XD PRN (Reason: n/v) Rx Instructions: DISSOLVE ONE TABLET BY MOUTH EVERY 6 HOURS NEEDED FOR NAUSEA AND VOMITING Lantus Solostar U-100 Insulin 100 unit/mL (3 mL) insulin pen 60 unit SUBCUT QPM oxycodone-acetaminophen 10-325 mg tablet 1 tab PO Q4H PRN (Reason: pain) 7 Days Qty: 42 0RF ziprasidone HCl 80 mg Capsule 80 mg PO BID buspirone 30 mg tablet 30 mg PO BID clonazepam 1 mg tablet 1 mg PO BEDTIME dextroamphetamine-amphetamine 30 mg capsule,extended release 24hr 1 cap PO QAM vilazodone 10 mg tablet 10 mg PO QAM Discharge Orders: Discharge ED (Routine); Ordered 05/28/24 Ordered By: Roxanne Dumont Referrals: Elan Kuhn MD [Primary Care Provider] - Activity Restrictions/Additional Instructions: As we discussed, I would like you to contact Dr. Han's office for further instructions tomorrow. You may need to follow-up with him sooner than your scheduled appointment. You need to return to the emergency department for worsening back pain, numbness/tingling/loss of sensation to your legs, trouble ambulating, any urinary or bowel incontinence/retention. I hope you begin to feel better soon. Coding Level of Care Code ED Emergency Preparedness Coordinator for Chao Monsalev
--- NOTE | 2024-05-28 15:34 | XRR_ITS ---
PROCEDURE INFORMATION: Exam: XR Lumbosacral Spine Exam date and time: 05/28/2024 4:00 PM Age: 44 years old Clinical indication: Low back pain; Prior surgery; Surgery date: <1 month; Surgery type: 05/23/24 spine; Patient HX: C/O back pain for the past few days. PT had spine surgery on 05/23/24. PT states she stood up last night and felt cracks and pops since then. PT ambulates with walker; Additional info: Back pain/injury; Recent surgery/hardware TECHNIQUE: Imaging protocol: Radiologic exam of the lumbosacral spine. Views: 2 or 3 views. COMPARISON: OT XR lumbar spine 2-3V* [id number] 05/23/2024 12:21 PM FINDINGS: Bones/joints: Posterior instrumented fusion with bilateral pedicle screws and vertical struts as well as an interbody cage graft at L4-L5. Hardware appears intact without complication. Spinal alignment is intact with no subluxation. No acute fracture. Minimal anterior wedging at T11 and T12 is similar to prior and is a chronic finding. Vertebral body heights are otherwise maintained. Soft tissues: Unremarkable. Organs: Cholecystectomy clips. XR/XR lumbar spine 2-3V* [id number] IMPRESSION: Posterior instrumented fusion at L4-L5 without apparent complication. No acute osseous findings.
[2024-05-28 15:45] VITALS: RESP 18
[2024-05-28] MEDS: morphine 4 mg/mL SDV 1 mL IVP (15:45)
[2024-05-28] MEDS: dexamethasone 10 mg/mL INJ IVP (15:46)
[2024-05-28] MEDS: orphenadrine 30 mg/mL Inj 2 mL 60 MG IVP (15:46)
[2024-05-28 16:51] VITALS: BP 162/91; PULSE 76; RESP 18; O2SAT 95
== END 2024-05-28 16:53 | disposition home or self-care (01) ==
PROVIDERS: Emergency Provider Physician Assistant; PCP Family Medicine
DX: G89.18 Other acute postprocedural pain (principal); Z98.1 Arthrodesis status; M54.50 Low back pain, unspecified
CPT/HCPCS: 72100; 96374; 96375; 99284; J1100; J2270; J2360

== ENCOUNTER → 2024-05-31 08:16 | Outpatient (BNVA) | payer OTHER, MEDICAID, SELFPAY | PROVIDERS: PCP Family Medicine; Visit Provider Orthopaedic Surgery | DX: Z98.1 Arthrodesis status (principal); M54.50 Low back pain, unspecified | CPT/HCPCS: 72100; 99024 ==

== ENCOUNTER 2024-06-04 07:33 | Observation (INO) | payer OTHER, MEDICAID, SELFPAY ==
[2024-06-04] VITALS (21 sets, daily range): BP systolic 134–197; BP diastolic 75–95; PULSE 74–94; RESP 18–26; TEMP 36.3–36.8; O2SAT 92–97; BMI 52.7; BMI 56.2
--- NOTE | 2024-06-04 07:37 | XR_ITS ---
WS: [id number] PORTABLE CHEST HISTORY: dyspnea/cough COMPARISON: 04/11/2024 Lung volumes are decreased. New since the prior study is mild to moderate pulmonary venous congestion . Slight blunting of the RIGHT costophrenic angle and elevation of the diaphragm. No pneumonia. No pn eumothorax. Cardiac size: Heart size is slightly increased in size. Mediastinum/Aorta: Normal mediastinum. No osseous abnormality seen. XR/XR chest 1V portable [id number] IMPRESSION: 1. Interval development of CHF since 04/11/2024. 2. Heart has slightly increased in size.
--- NOTE | 2024-06-04 07:50 | PC.NURSE ---
PATIENT PLACED ON 2 L NC DUE TO WORK OF BREATHING.
--- NOTE | 2024-06-04 07:58 | ED_ITS ---
HPI - SOB/Dyspnea 2 General: Chief Complaint: Shortness of Breath/Dyspnea Stated Complaint: SOB Time Seen by Provider: 06/04/24 07:37 History of Present Illness: HPI Narrative: 44-year-old female presents emergency ro om complaining of shortness of breath the last several days. She had a nonproductive cough has been using albuterol inhaler at home with moderate relief of symptoms. She is felt febrile at times about 2 weeks ago she had a lumbar fusion done. She has a known history of hypertension tentatively has been difficult to manage as well as a history of asthma. No chest pain or discomfort. Associated symptoms: Reports chest congestion; Deny abdominal pain, chest pain or fever(s) Related Data Home Medications Medication Instructions Recorded Confirmed diphenhydramine HCl 25 mg tablet 25 - 50 mg PO PRN 04/08/20 06/04/24 (Benadryl Allergy) ziprasidone HCl 80 mg capsule 80 mg PO BID 08/24/22 06/04/24 oxcarbazepine 600 mg tablet 600 mg PO BID 07/13/23 06/04/24 (Trileptal) buspirone 30 mg tablet 30 mg PO BID 08/26/23 06/04/24 clonazepam 1 mg tablet 1 mg PO BEDTIME Anxiety 04/11/24 06/04/24 dextroamphetamine-amphetamine ER 1 cap PO QAM 04/11/24 06/04/24 30 mg 24hr capsule,extend release trazodone 100 mg tablet 200 mg PO BEDTIME 04/11/24 06/04/24 vilazodone 10 mg tablet 10 mg PO QAM 04/11/24 06/04/24 insulin glargine 100 unit/mL (3 60 unit SUBCUT QPM 05/22/24 06/04/24 mL) subcutaneous pen (Lantus Solostar U-100 Insulin) ondansetron 4 mg disintegrating 4 mg PO 3XD PRN n/v 05/22/24 06/04/24 tablet oxycodone-acetaminophen 10 mg-325 1 tab PO Q4H 06/04/24 06/04/24 mg tablet pantoprazole 40 mg tablet,delayed 40 mg PO BID 06/04/24 06/04/24 release rituximab-abbs 10 mg/mL 1,000 mg IV .[id number] 06/04/24 06/04/24 intravenous solution Previous Rx's Medication Instructions Recorded albuterol sulfate 90 mcg/actuation 2 puff inhalation Q4H PRN 09/20/22 aerosol inhaler (Ventolin HFA) Shortness Of Breath #8.5 grams albuterol sulfate 2.5 mg/3 mL 2.5 mg (3 mL) inhalation Q4H PRN 12/02/22 (0.083 %) solution for nebulization Shortness Of Breath #90 mL insulin syringes (disposable) 1 mL #25 ea 04/18/23 lisinopril 40 mg tablet 40 mg PO BEDTIME #90 tabs 12/12/23 gabapentin 600 mg tablet 600 mg PO TID #180 tabs 12/22/23 epinephrine 0.3 mg/0.3 mL 0.3 mg (0.3 mL) IM Q15M PRN 12/23/23 injection, auto-injector (EpiPen anaphylaxis #2 ea 2-Edward) levothyroxine 200 mcg tablet 200 mcg PO DAILY #90 tabs 03/07/24 azathioprine 50 mg tablet 100 mg (2 x 50 mg) PO BID #120 tabs 03/28/24 hydroxychloroquine 200 mg tablet 200 mg PO BID #180 tabs 03/28/24 atorvastatin 20 mg tablet 20 mg PO DAILY #90 tabs 05/01/24 blood-glucose meter,continuous #1 ea 05/01/24 (Dexcom G7 Construction Carpenters Helper) blood-glucose sensor (Dexcom G7 #3 ea 05/01/24 Sensor device) semaglutide 2 mg/dose (8 mg/3 mL) 2 mg (0.75 mL) SUBCUT Q7D #3 mL 05/01/24 subcutaneous pen injector (Ozempic) Bone Growth Stimulator #1 ea 05/02/24 furosemide 20 mg tablet 20 mg PO QAM PRN Edema #90 tabs 05/09/24 montelukast 10 mg tablet 10 mg PO DAILY #90 tabs 05/14/24 (Singulair) levothyroxine 25 mcg tablet 25 mcg PO DAILY #60 tabs 05/21/24 Allergies Allergy/AdvReac Type Severity Reaction Status Date / Time anifrolumab-fnia Allergy Severe hives Verified 06/04/24 07:49 [From Saphnelo] amoxicillin Allergy ALGY-Rash Verified 06/04/24 07:49 bee venom protein (honey bee) Allergy ALGY-Anaphy Verified 06/04/24 07:49 laxis cinnamon Allergy anaphylacti Verified 06/04/24 07:49 c desvenlafaxine [From Pristiq] Allergy Unknown Verified 06/04/24 07:49 fluoxetine [From Prozac] Allergy Unknown Verified 06/04/24 07:49 Latex, Natural Rubber Allergy ALGY-Rash Verified 06/04/24 07:49 oxytocin [From Pitocin] Allergy ADR-Itching Verified 06/04/24 07:49 Penicillins Allergy ALGY-Hives Verified 06/04/24 07:49 Sulfa (Sulfonamide Allergy ALGY-Rash Verified 06/04/24 07:49 Antibiotics) leflunomide AdvReac Intermediate gastric Verified 06/04/24 07:49 Review of Systems 2 Const: Denies: fever(s) or chills Card: Denies: chest pain Resp: Reports: dyspnea, non-productive cough, wheezing and chest congestion GI: Denies: abdominal pain : Denies: dysuria, urinary frequency or urinary urgency Musc: Denies: neck pain or back pain Skin/Breast: Denies: rash PFSH ED 2 PFSH: Medical History History of echocardiogram 03/2024 EF 60%, Grade I/IV, normal PAP, no LVH, RAP 5mmHg OCD (obsessive compulsive disorder) Hernia of fascia Abnormal mammogram of right breast Hyponatremia chronic, may be related to some medications, which are being adjusted by primary prescribers Hypertension Syncope ADHD Generalized anxiety disorder Fatty liver Fatigue B12 deficiency Lung injury associated with vaping Contact dermatitis SLE (systemic lupus erythematosus related syndrome) Hypothyroidism COPD (chronic obstructive pulmonary disease) Leukocytosis chronic Rosacea Positive double stranded DNA antibody test Labral tear of left hip joint KI (obstructive sleep apnea) Morbid obesity Bipolar 1 disorder PTSD (post-traumatic stress disorder) Chronic urticaria Insomnia Mild intermittent asthma Allergic rhinitis GERD (gastroesophageal reflux disease) Shingles 4th occurrence Hyperlipemia, mixed Helicobacter pylori gastritis Mandibular fracture Diabetes mellitus Type 2 Depression Surgical History History of left hip replacement History of cardiac catheterization 04/12/2024 Dr House: No disease noted in the Left Main, Left Anterior Descending, Right, or Circumflex coronary arteries. History of ankle surgery (02/08/24) By Dr Murphy: Left modified Brostr?m with internal brace, repair left peroneus brevis tendon split tear and peroneus longus tenosynovectomy, topaz achilles tendon with PRP injection Status post lumbar spinal fusion (05/23/24) Dr Han, L4-5 History of mandibular surgery For mandibular fracture H/O esophagogastroduodenoscopy (09/02/21) H/O thyroidectomy done due to multinodular goiter S/P cholecystectomy S/P tonsillectomy and adenoidectomy S/P breast lumpectomy Right breast lumpectomy for benign disease Previous section Family History Father Hypertension Cancer testicular Cardiac abnormality Mother Congestive heart failure (CHF) COPD (chronic obstructive pulmonary disease) Diabetes Cancer ovarian and uterine Family/Other Cancer Maternal aunt- HR2 breast Other CAD (coronary artery disease) Family history of premature coronary artery disease Hyperlipidemia Lung disease Psychiatric illness Rheumatoid arthritis Stroke Denies family history of Lupus Clotting disorder Dementia Chronic kidney disease (CKD) Anesthesia complication Bleeding disorder Social History Smoking and tobacco/nicotine status: never used tobacco/nicotine Quit status (tobacco/nicotine): has quit using Year quit tobacco: July Former quit date comment: Hx of 2 ppd X 25 years, started at age 16 yr. 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 [employer] Sexually active: Yes Do you think of yourself as: Straight/Heterosexual Current gender identity: Female Balbina/Sikh: Shinto Special balbina needs: No Agree to transfusion: Yes Physical Exam 2 Const: COMMON NORMALS: no acute distress GENERAL APPEARANCE: cooperative and comfortable ORIENTATION/CONSCIOUSNESS: Yes awake, Yes oriented to person, Yes oriented to place and Yes oriented to time HENMT: COMMON NORMALS: normocephalic, atraumatic and hearing grossly normal bilaterally HEAD & SCALP: normocephalic and atraumatic Resp: COMMON NORMALS: normal respiratory effort, No retractions and No use of accessory muscles AUSCULTATION: rhonchi right lower and diminished lung sounds Cardio: COMMON NORMALS: regular rate, regular rhythm and No murmurs present (Cardio) RATE: regular rate RHYTHM: regular rhythm GI: COMMON NORMALS: Soft to palpation and No hepatosplenomegaly present A USCULTATION: Yes normoactive bowel sounds PALPATION: Yes Soft to palpation, No Tenderness to palpation present (GI), No Guarding due to palpation present (GI) and Yes No hepatosplenomegaly present Extremity: COMMON NORMALS: normal to inspection, capillary refill normal, no clubbing, cyanosis or edema, no calf tenderness and no pedal edema Neuro: SENSORIUM/ORIENTATION: Yes oriented to person, Yes oriented to place and Yes oriented to time Skin: COMMON NORMALS: no rashes or lesions noted GENERAL SKIN EXAM: no rashes or lesions noted Course 2 Vital Signs: Vital signs: Vital Signs Temperature 98.2 F 06/05/24 03:45 Pulse Rate 83 06/05/24 06:00 Respiratory Rate 16 06/05/24 06:27 Blood Pressure 151/79 06/05/24 03:45 Pulse Oximetry 93 06/05/24 06:27 Oxygen Delivery Me thod Nasal Cannula 06/05/24 04:08 Oxygen Flow Rate 2 06/05/24 04:08 MDM - SOB/Dyspnea Medical Decision Making Acute congestive heart failure patient given Lasix. She is requiring oxygen. Laboratory test unremarkable patient has a significant history of poorly controlled hypertension. She did have cardiac workup recently in conjunction with preop evaluation. She is also anemic has significant drop in hemoglobin postoperatively. Prior to surgery hemoglobin was 12.1 and she is 8.7 today. Will admit discussed with hospitalist orders written Lab Data 06/05/24 03:47 06/05/24 03:47 Labs/Radiology: Radiology Impressions Chest X-Ray 06/04/24 07:37 IMPRESSION: 1. Interval development of CHF since 04/11/2024. 2. Heart has slightly increased in size. Chest CTA 06/04/24 09:04 IMPRESSION: 1. No proximal pulmonary embolism. Evaluation of the peripheral pulmonary arteries is limited due to contrast bolus timing and motion. 2. Small bilateral pleural effusions with mild edema. Laboratory Results WBC 9.93 10^3/uL (3.29-11.43) 06/04/24 07:55 RBC 3.24 10^6/uL (3.85-5.65) L 06/04/24 07:55 Hgb 8.70 g/dL (11.27-16.99) L 06/04/24 07:55 Hct 27.6 % (36-47) L 06/04/24 07:55 MCV 85.2 fl (85-98) 06/04/24 07:55 MCH 26.9 pg (27-33) L 06/04/24 07:55 MCHC 31.5 g/dL (30-55) 06/04/24 07:55 RDW 13.8 % (12.1-15.1) 06/04/24 07:55 Plt Count 510 10^3/cmm (157-399) H 06/04/24 07:55 MPV 9.0 fL (7.4-10.4) 06/04/24 07:55 Neut % (Auto) 71.8 % 06/04/24 07:55 Lymph % (Auto) 14.2 % 06/04/24 07:55 Howard % (Auto) 8.4 % 06/04/24 07:55 Eos % (Auto) 2.1 % 06/04/24 07:55 Baso % (Auto) 1.0 % 06/04/24 07:55 Neut # (Auto) 7.13 10^3/uL (1.8-7.7) 06/04/24 07:55 Lymph # (Auto) 1.4 10^3/uL (0.8-4.8) 06/04/24 07:55 Howard # (Auto) 0.8 10^3/uL (0.2-0.9) 06/04/24 07:55 Eos # (Auto) 0.2 10^3/uL (0.0-0.8) 06/04/24 07:55 Baso # (Auto) 0.1 10^3/uL (0.0-0.1) 06/04/24 07:55 Nucleated RBC % (auto) 0.3 % 06/04/24 07:55 Nucleated RBCs # 0.0 /100WBC 06/04/24 07:55 D-Dimer 0.99 ug/mLFEU (0-0.59) H 06/04/24 07:55 Specimen Type Arterial 06/04/24 08:06 Sample Site Radial, left 06/04/24 08:06 ABG pH 7.46 (7.35-7.45) H 06/04/24 08:06 ABG pCO2 36.7 mmHg (35-45) 06/04/24 08:06 ABG pO2 57.9 mmHg (80.0-100.0) L 06/04/24 08:06 ABG PO2/FiO2 Ratio 275 06/04/24 08:06 ABG HCO3 26.1 mmol/L (22-26) H 06/04/24 08:06 ABG O2 Saturation 91.7 06/04/24 08:06 ABG Base Excess 2.1 mmol/L (-2.0-2.0) H 06/04/24 08:06 Aric Test Pos 06/04/24 08:06 A-a O2 Gradient 6.1 mmHg (5-10) 06/04/24 08:06 Hematocrit 26.8 % (37-47) L 06/04/24 08:06 Hgb O2 Saturation 89.3 % (95-100) L 06/04/24 08:06 Carboxyhemoglobin 1.4 %THgb (0.4-20.1) 06/04/24 08:06 Methemoglobin 1.2 % (0.4-1.5) 06/04/24 08:06 Total Hemoglobin 8.7 g/dL (12-16) L 06/04/24 08:06 Sodium 134.0 mmol/L (131-143) 06/04/24 08:06 Potassium 3.8 mmol/L (3.5-5.0) 06/04/24 08:06 Glucose 130.0 mg/dL (70-115) H 06/04/24 08:06 Ionized Calcium 1.2 mmol/L (1.1-1.4) 06/04/24 08:06 O2 Delivery Device Room air 06/04/24 08:06 FiO2 21.0 % 06/04/24 08:06 Customer Experience Manager ID [employer] 06/04/24 08:06 Sodium 129 mmol/L (136-145) L 06/04/24 07:55 Potassium 4.0 mmol/L (3.5-5.1) 06/04/24 07:55 Chloride 94 mmol/L (98-107) L 06/04/24 07:55 Carbon Dioxide 26 mmol/L (22-29) 06/04/24 07:55 Anion Gap 13.0 (5-19) 06/04/24 07:55 BUN 11 mg/dL (6-20) 06/04/24 07:55 Creatinine 0.5 mg/dL (0.5-0.9) 06/04/24 07:55 GFR Calculation 135.3 mL/min (90-130) H 06/04/24 07:55 Glucose 143 mg/dL (65-115) H 06/04/24 07:55 Calculated Osmolality 270 mOsm/kg (285-295) L 06/04/24 07:55 Lactic Acid 1.1 mmol/L (0.5-2.2) 06/04/24 07:55 Calcium 8.3 mg/dL (8.5-10.5) L 06/04/24 07:55 Total Bilirubin 0.2 mg/dL (0.15-1.2) 06/04/24 07:55 AST 13 U/L (0-32) 06/04/24 07:55 ALT 14 U/L (0-33) 06/04/24 07:55 Alkaline Phosphatase 90 U/L (35-105) 06/04/24 07:55 Troponin T Baseline 8 ng/L (0-10) 06/04/24 07:55 Troponin T 120 Minute 7.14 ng/L (0-10) 06/04/24 10:22 Delta Troponin T -0.86 ABS# (0-10) L 06/04/24 10:22 NT-Pro-B Natriuret Pep 585 pg/mL (0-125) H 06/04/24 07:55 Total Protein 6.7 g/dL (6.6-8.7) 06/04/24 07:55 Albumin 3.9 g/dL (3.5-5.2) 06/04/24 07:55 Globulin 2.8 g/dL (1.3-4.6) 06/04/24 07:55 Urine Color Yellow (Yellow) 06/04/24 08:50 Urine Appearance Clear (CLEAR) 06/04/24 08:50 Urine pH 7.0 (5-7) 06/04/24 08:50 Ur Specific [place] 1.010 (1.005-1.030) 06/04/24 08:50 Urine Protein Negative (Negative) 06/04/24 08:50 Urine Glucose (UA) Negative (Normal) 06/04/24 08:50 Urine Ketones Negative (Negative) 06/04/24 08:50 Urine Blood Negative (Negative) 06/04/24 08:50 Urine Nitrate Negative (Negative) 06/04/24 08:50 Urine Bilirubin Negative (Negative) 06/04/24 08:50 Urine Urobilinogen 0.2 mg/dL (Negative) 06/04/24 08:50 Ur Leukocyte Esterase Negative (Negative) 06/04/24 08:50 Urine RBC 0-2 /hpf (0-2) 06/04/24 08:50 Urine WBC 0-5 /hpf (0-5) 06/04/24 08:50 Ur Squamous Epith Cells 0-5 /hpf (0-5) 06/04/24 08:50 Amorphous Sediment Not Reportable 06/04/24 08:50 Urine Bacteria None seen /hpf (NONE) 06/04/24 08:50 Hyaline Casts 0-4 /lpf H 06/04/24 08:50 Coronavirus (PCR) Negative (Negative) 06/04/24 08:20 Influenza A (PCR) Negative (Negative) 06/04/24 08:20 Influenza Type B (PCR) Negative (Negative) 06/04/24 08:20 RSV (PCR) Negative (Negative) 06/04/24 08:20 All radiology interpretation(s) finalized by discharge Discharge Plan Discharge Patient Disposition: Admitted As Inpatient Admit Provider: Addie Lu Clinical Impression: Acute heart failure with preserved ejection fraction, Hypoxemia requiring supplemental oxygen, Postoperative anemia, Status post lumbar spinal fusion Condition: Stable Coding Level of Care Code ED Insurance Loss Control Surveyor for Chao Monaslve
[2024-06-04 08:17] LABS: ABG PCO2 36.7 mmHg (35-45); ABG PH Result 7.46 (7.35-7.45); Alveolar-Arterial Oxygen Gradi 6.1 mmHg (5-10); Arterial Blood Gas Hematocrit 26.8 % (37-47); Base Excess ABG 2.1 mmol/L (-2.0-2.0); Blood Gas Allen Test Pos; Blood Gas Operator Identificat WALCI; Blood Gas Sample Site Radial, left; Blood Gas Sample Type Arterial; Carboxyhemoglobin 1.4 %THgb (0.4-20.1); HCO3 ABG 26.1 mmol/L (22-26); HGB O2 Sat 89.3 % (95-100); Ionized Calcium Level - ABG 1.2 mmol/L (1.1-1.4); Methemoglobin 1.2 % (0.4-1.5); Oxygen Device ROOM AIR; Oxygen Saturation ABG 91.7; PO2 ABG 57.9 mmHg (80.0-100.0); PO2 FiO2 Ratio Arterial Blood 275; Potassium Level - ABG 3.8 mmol/L (3.5-5.0); Total Hemoglobin 8.7 g/dL (12-16)
[2024-06-04] MEDS: ipratropium-albuterol 3 mL Neb INHALATION ×3 (08:20→20:00)
[2024-06-04] MEDS: methylPREDNISolone sod succ 125 mg/2 mL INJ IVP (08:23)
[2024-06-04 08:25] LABS: Basophils # 0.1 10^3/uL (0.0-0.1); Eosinophils # 0.2 10^3/uL (0.0-0.8); Eosinophils % 2.1 %; Hematocrit 27.6 % (36-47); Lymphocytes # 1.4 10^3/uL (0.8-4.8); Lymphocytes % 14.2 %; Mean Corpuscular HGB Conc 31.5 g/dL (30-55); Mean Corpuscular Hemoglobin 26.9 pg (27-33); Mean Corpuscular Volume 85.2 fl (85-98); Monocytes # 0.8 10^3/uL (0.2-0.9); Monocytes % 8.4 %; Neutrophils # 7.13 10^3/uL (1.8-7.7); Neutrophils % 71.8 %; Nucleated Red Blood Cells % 0.3 %; Platelet Count 510 10^3/cmm (157-399); Red Blood Count 3.24 10^6/uL (3.85-5.65); Red Cell Distribution Width 13.8 % (12.1-15.1); White Blood Count 9.93 10^3/uL (3.29-11.43)
[2024-06-04 08:32] LABS: Alanine Aminotransferase 14 U/L (0-33); Albumin Level 3.9 g/dL (3.5-5.2); Alkaline Phosphatase 90 U/L (35-105); Aspartate Amino Transferase 13 U/L (0-32); Blood Urea Nitrogen 11 mg/dL (6-20); Calcium 8.3 mg/dL (8.5-10.5); Carbon Dioxide 26 mmol/L (22-29); Chloride 94 mmol/L (98-107); Creatinine Clr Calc Pharmacy 212.2197; Globulin 2.8 g/dL (1.3-4.6); Glomerular Filtration Rate 135.3 mL/min (90-130); Glucose 143 mg/dL (65-115); Osmolality Calculated 270 mOsm/kg (285-295); Sodium 129 mmol/L (136-145); Total Bilirubin 0.2 mg/dL (0.15-1.2); Total Protein 6.7 g/dL (6.6-8.7)
[2024-06-04 08:33] LABS: Lactic Sepsis W/Reflex 1.1 mmol/L (0.5-2.2)
[2024-06-04 08:53] LABS: D Dimer 0.99 ug/mLFEU (0-0.59)
--- NOTE | 2024-06-04 09:04 | CTR_ITS ---
PROCEDURE INFORMATION: Exam: CTA Chest With Contrast Exam date and time: 06/04/2024 10:30 AM Age: 44 years old Clinical indication: Dyspnea; Additional info: Dyspnea/hypoxia TECHNIQUE: Imaging protocol: Computed tomographic angiography of the chest with contrast. Exam focused on the arteries. 3D rendering (Not supervised by radiologist): MIP and/or 3D reconstructed images were created by the technologist. Radiation optimization: All CT scans at this facility use at least one of these dose optimization techniques: automated exposure control; mA and/or kV adjustment per patient size (includes targeted exams where dose is matched to clinical indication); or iterative reconstruction. Contrast material: OMNI 350; Contrast volume: 100 ml; Contrast route: INTRAVENOUS (IV); COMPARISON: CT angio chest PE protcl [id number] 08/23/2022 5:44 PM RADIATION DOSE METRICS: Total DLP (mGy-cm): 536.71 FINDINGS: Limitations: Limited by motion artifact. Pulmonary arteries: No proximal pulmonary embolism. Evaluation of the peripheral pulmonary arteries is limited due to contrast bolus timing and motion. Aorta: Unremarkable. No aortic aneurysm. No aortic dissection. Lungs: Bibasilar atelectasis. Interstitial and bronchial wall thickening, likely mild edema. Pleural spaces: Small bilateral pleural effusions. Heart: Small pericardial effusion. Coronary arteries: No coronary artery calcifications. Lymph nodes: Unremarkable. No enlarged lymph nodes. Bones/joints: Unremarkable. No acute fracture. Soft tissues: Unremarkable. CT/CT angio chest PE protcl [id number] IMPRESSION: 1. No proximal pulmonary embolism. Evaluation of the peripheral pulmonary arteries is limited due to contrast bolus timing and motion. 2. Small bilateral pleural effusions with mild edema.
--- NOTE | 2024-06-04 09:04 | ECG_ITS ---
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 Measurements Intervals [place] Rate: 80 P: 58 DE: 183 QRS: 64 QRSD: 105 T: 56 QT: 384 QTc: 443 Interpretive Statements SINUS RHYTHM LOW QRS VOLTAGE IN PRECORDIAL LEADS [QRS DEFLECTION < 1.0 mV IN CHEST LEADS] Compared to ECG 04/11/2024 18:46:40 No significant changes Electronically Signed On 06-05-2024 01:20:07 CDT by Prachi Jimenes M.D. [id number]
[2024-06-04 09:06] LABS: Bilirubin Urine Negative (Negative); Blood Urine Negative (Negative); Glucose Urine UA Negative (Normal); Ketones Urine Negative (Negative); Leukocyte Esterase Urine Negative (Negative); Nitrate Urine Negative (Negative); Protein Urine Negative (Negative); Urine Appearance Clear (CLEAR); Urine Color Yellow (Yellow); Urobilinogen Urine 0.2 mg/dL (Negative)
[2024-06-04 09:10] LABS: Add Urine Microscopic? YES; Bacteria Urine None Seen /hpf; Hyaline Casts Urine 0-4 /lpf; RBC Urine 0-2 /hpf (0-2); Squamous Epithelial Cell Urine 0-5 /hpf (0-5); WBC Urine 0-5 /hpf (0-5)
[2024-06-04 09:16] LABS: Add Urine Culture? No
[2024-06-04 09:38] LABS: Troponin(5th) Baseline 8 ng/L (0-10)
[2024-06-04 09:57] LABS: NT Pro B Type Natriuretic Pept 585 pg/mL (0-125)
[2024-06-04] MEDS: iohexol 350 mg/mL 500 mL Btl (per mL) IV (10:36)
[2024-06-04 11:25] LABS: Troponin 5 2HR 7.14 ng/L (0-10)
[2024-06-04 11:27] LABS: Troponin 5 2HR Delta -0.86 ABS# (0-10)
[2024-06-04] MEDS: morphine 4 mg/mL SDV 1 mL IVP (11:48)
[2024-06-04] MEDS: FUROsemide 10 mg/mL SDV 10mL 60 MG IVP (12:54)
--- NOTE | 2024-06-04 15:36 | ECG_ITS ---
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 Measurements Intervals [place] Rate: 85 P: 53 FL: 194 QRS: 48 QRSD: 100 T: 47 QT: 404 QTc: 481 Interpretive Statements SINUS RHYTHM Compared to ECG 06/04/2024 07:38:53 No significant changes Electronically Signed On 06-05-2024 01:36:26 CDT by Prachi Jimenes M.D. [id number]
--- NOTE | 2024-06-04 16:06 | PM.HP ---
Providers/Chief Complaint Admitting Physician: Addie Lu MD Primary Care Provider: PCP Elan Kuhn MD Endo Dr Harris Rheum Dr Bandar Maher Heart Dr [facility]iat[facility]Sascha Swan Chief Complaint: SOB History of Present Illness Lori Padron is a 44 year old female presenting to the emergency room with chief complaint of difficulty breathing. Despite her young age, she has an extensive medical history, including asthma, systemic lupus erythematosus, sleep apnea, bmi 56, hypertension which can be difficult to control at times, all which complicates her current presentation. She is chronically on azathioprine and hydroxychloroquine, taking both today. She is also on rituximab, with 1st and most recent dose given on 05/03/2024. The patient started experiencing worsened breathing issues a couple weeks before she had lumbar fusion by Dr Han on 05/23. She thought allergies were to blame at that time, grass cutting and the like. She had labs done at followup with Dr Harris on 05/11 and was found to have sodium levels of 118. She was in [place] at the time and went to [facility] where she was hospitalized and treated with lasix and sodium per her report. At discharge sodium was up to 126 and the day before her surgery, was 134. With management of her fluid/sodium levels, she was breathing better before surgery and was okay before going home. Within a couple of days, however, her breathing became more labored. The has progressively worsened to the point where last night she was not able to catch her breath well at all. She uses a CPAP device religiously and even with it, woke up with a tightness in her chest and struggling. She has had some nausea but no vomiting with it. This led to ED visit today. Not reports of fevers. Has had edema in her legs and has been taking lasix daily as recommended by her PCP. She has been using her inhalers. Nothing has made her breathing much better. At times she has felt like something sitting on her chest. Work up in the ER showed not evidence pulmonary emboli but did real bilateral pleural effusions and pulmonary edema finding. She received steroids and nebulizer treatment initially but subsequently received lasix. She had significant work of breathing initially and was noted to have oxygen saturations today as low as the lower 80s at home. Here with 2 to 5 L by nasal cannula as she has been able to maintain saturations in the low 90s. She previously had home oxygen but has not had a prescription for it since earlier this year. With her degree of distress, need for oxygen and clinical evidence of fluid overload she is being admitted for further evaluation and treatment. I should note that as part of her preoperative evaluation she had cardiac catheterization and echocardiogram in March that showed normal ejection fraction and normal coronary arteries. She had grade 1/4 diastolic dysfunction with normal pulmonary artery pressures Review of Systems General: Reports: Other (ROS as per HPI or as otherwise noted here) Narrative: - General: Reports fatigue. No fevers. - Respiratory: Reports wheezing, intermittent shortness of breath, non productive cough. - Cardiovascular: Reports swelling in lower extremities, orthopnea and pnd. - Neurological: Reports neuropathy, no new numbness. - Gastrointestinal: Denies nausea, vomiting.No blood in stools. - Urinary: Denies blood in urine or dysuria. - Dermatological: Denies new skin rashes. Medications/Allergies Home Medications Medication Instructions Recorded Confirmed Last Taken Type diphenhydramine HCl 25 mg tablet 25 - 50 mg PO PRN 04/08/20 06/04/24 02/06/24 20:00 History (Benadryl Allergy) ziprasidone HCl 80 mg capsule 80 mg PO BID 08/24/22 06/04/24 06/03/24 History albuterol sulfate 90 mcg/actuation 2 puff inhalation Q4H PRN 09/20/22 06/04/24 06/04/24 Rx aerosol inhaler (Ventolin HFA) Shortness Of Breath #8.5 grams albuterol sulfate 2.5 mg/3 mL 2.5 mg (3 mL) inhalation Q4H PRN 12/02/22 06/04/24 06/03/24 Rx (0.083 %) solution for nebulization Shortness Of Breath #90 mL insulin syringes (disposable) 1 mL #25 ea 04/18/23 06/04/24 Unknown Rx oxcarbazepine 600 mg tablet 600 mg PO BID 07/13/23 06/04/24 06/03/24 History (Trileptal) buspirone 30 mg tablet 30 mg PO BID 08/26/23 06/04/24 06/04/24 History lisinopril 40 mg tablet 40 mg PO BEDTIME #90 tabs 04/15/24 10/07/24 10/06/24 Rx gabapentin 600 mg tablet 600 mg PO TID #180 tabs 12/22/23 06/04/24 06/04/24 Rx epinephrine 0.3 mg/0.3 mL 0.3 mg (0.3 mL) IM Q15M PRN 12/23/23 06/04/24 Unknown Rx injection, auto-injector (EpiPen anaphylaxis #2 ea 2-Edward) levothyroxine 200 mcg tablet 200 mcg PO DAILY #90 tabs 03/07/24 06/04/24 06/04/24 Rx azathioprine 50 mg tablet 100 mg (2 x 50 mg) PO BID #120 tabs 03/28/24 06/04/24 06/03/24 Rx hydroxychloroquine 200 mg tablet 200 mg PO BID #180 tabs 03/28/24 06/04/24 06/04/24 Rx clonazepam 1 mg tablet 1 mg PO BEDTIME Anxiety 04/11/24 06/04/24 06/03/24 History dextroamphetamine-amphetamine ER 1 cap PO QAM 04/11/24 06/04/24 06/03/24 History 30 mg 24hr capsule,extend release trazodone 100 mg tablet 200 mg PO BEDTIME 04/11/24 06/04/24 06/03/24 History vilazodone 10 mg tablet 10 mg PO QAM 04/11/24 06/04/24 06/03/24 History atorvastatin 20 mg tablet 20 mg PO DAILY #90 tabs 05/01/24 06/04/24 06/03/24 Rx blood-glucose meter,continuous #1 ea 05/01/24 06/04/24 Unknown Rx (Dexcom G7 Grounds Caretaker) blood-glucose sensor (Dexcom G7 #3 ea 05/01/24 06/04/24 Unknown Rx Sensor device) semaglutide 2 mg/dose (8 mg/3 mL) 2 mg (0.75 mL) SUBCUT Q7D #3 mL 05/01/24 06/04/24 05/22/24 Rx subcutaneous pen injector (Ozempic) Bone Growth Stimulator #1 ea 05/02/24 06/04/24 Unknown Rx furosemide 20 mg tablet 20 mg PO QAM PRN Edema #90 tabs 05/09/24 06/04/2424 Rx montelukast 10 mg tablet 10 mg PO DAILY #90 tabs 05/14/24 06/04/24 06/03/24 Rx (Singulair) levothyroxine 25 mcg tablet 25 mcg PO DAILY #60 tabs 05/21/24 06/04/24 06/04/24 Rx insulin glargine 100 unit/mL (3 60 unit SUBCUT QPM 05/22/24 06/04/24 06/03/24 History mL) subcutaneous pen (Lantus Solostar U-100 Insulin) ondansetron 4 mg disintegrating 4 mg PO 3XD PRN n/v 05/22/24 06/04/24 Unknown History tablet oxycodone-acetaminophen 10 mg-325 1 tab PO Q4H 06/04/24 06/04/24 06/04/24 History mg tablet pantoprazole 40 mg tablet,delayed 40 mg PO BID 06/04/24 06/04/24 06/04/24 History release rituximab-abbs 10 mg/mL 1,000 mg IV .Q3GLSTV 06/04/24 06/04/24 05/03/24 History intravenous solution Allergies Allergy/AdvReac Type Severity Reaction Status Date / Time anifrolumab-fnia Allergy Severe hives Verified 06/04/24 07:49 [From Saphnelo] amoxicillin Allergy ALGY-Rash Verified 06/04/24 07:49 bee venom protein (honey bee) Allergy ALGY-Anaphy Verified 06/04/24 07:49 laxis cinnamon Allergy anaphylacti Verified 06/04/24 07:49 c desvenlafaxine [From Pristiq] Allergy Unknown Verified 06/04/24 07:49 fluoxetine [From Prozac] Allergy Unknown Verified 06/04/24 07:49 Latex, Natural Rubber Allergy ALGY-Rash Verified 06/04/24 07:49 oxytocin [From Pitocin] Allergy ADR-Itching Verified 06/04/24 07:49 Penicillins Allergy ALGY-Hives Verified 06/04/24 07:49 Sulfa (Sulfonamide Allergy ALGY-Rash Verified 06/04/24 07:49 Antibiotics) leflunomide AdvReac Intermediate gastric Verified 06/04/24 07:49 PFSH Acute PFSH: Medical History (Updated 06/04/24 @ 19:37 by Addie Lu MD) History of echocardiogram 03/2024 EF 60%, Grade I/IV, normal PAP, no LVH, RAP 5mmHg OCD (obsessive compulsive disorder) Hernia of fascia Abnormal mammogram of right breast Hyponatremia chronic, may be related to some medications, which are being adjusted by primary prescribers Hypertension Syncope ADHD Generalized anxiety disorder Fatty liver Fatigue B12 deficiency Lung injury associated with vaping Contact dermatitis SLE (systemic lupus erythematosus related syndrome) Hypothyroidism COPD (chronic obstructive pulmonary disease) Leukocytosis chronic Rosacea Positive double stranded DNA antibody test Labral tear of left hip joint KI (obstructive sleep apnea) Morbid obesity Bipolar 1 disorder PTSD (post-traumatic stress disorder) Chronic urticaria Insomnia Mild intermittent asthma Allergic rhinitis GERD (gastroesophageal reflux disease) Shingles 4th occurrence Hyperlipemia, mixed Helicobacter pylori gastritis Mandibular fracture Diabetes mellitus Type 2 Depression Surgical History (Updated 06/04/24 @ 18:29 by Addie Lu MD) History of left hip replacement History of cardiac catheterization 04/12/2024 Dr House: No disease noted in the Left Main, Left Anterior Descending, Right, or Circumflex coronary arteries. History of ankle surgery (02/08/24) By Dr Murphy: Left modified Brostr?m with internal brace, repair left peroneus brevis tendon split tear and peroneus longus tenosynovectomy, topaz achilles tendon with PRP injection Status post lumbar spinal fusion (05/23/24) Dr Han, L4-5 History of mandibular surgery For mandibular fracture H/O esophagogastroduodenoscopy (09/02/21) H/O thyroidectomy done due to multinodular goiter S/P cholecystectomy S/P tonsillectomy and adenoidectomy S/P breast lumpectomy Right breast lumpectomy for benign disease Previous section Family History Father Hypertension Cancer testicular Cardiac abnormality Mother Congestive heart failure (CHF) COPD (chronic obstructive pulmonary disease) Diabetes Cancer ovarian and uterine Family/Other Cancer Maternal aunt- HR2 breast Other CAD (coronary artery disease) Family history of premature coronary artery disease Hyperlipidemia Lung disease Psychiatric illness Rheumatoid arthritis Stroke Denies family history of Lupus Clotting disorder Dementia Chronic kidney disease (CKD) Anesthesia complication Bleeding disorder Social History (Updated 10/07/24 @ 18:12 by Addie Lu MD) Smoking and tobacco/nicotine status: never used tobacco/nicotine Quit status (tobacco/nicotine): has quit using Year quit tobacco: July Former quit date comment: Hx of 2 ppd X 25 years, started at age 16 yr. 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 Able to provide history but has to pause to take in a breath at times. Speaks softly. Erythematous face with butterfly distribution noted. Skin is dry. Pupils are equally reactive. Nasopharynx with some clear rhinorrhea. Oropharynx with moist membranes. Neck is large but supple. Lungs are currently clear to auscultation anteriorly without any wheezes noted. Breath sounds are decreased at both bases. Occasional pursed lips noted. Supraclavicular retractions. Oxygen is in place. Cardiovascular exam reveals a regular rhythm. Distant heart sounds. Abdomen is soft, nontender with positive bowel sounds. 3+ pitting edema bilaterally. External dressing taken down from lumbar region. Steri-Strips from surgery remain in place. Dried blood is noted beneath Steri-Strips. No surrounding erythema. Dressing was replaced and remained adherent. Speech is soft but clear. Face symmetric. Moves all extremities. No abnormal movements. Data 06/04/24 07:55 06/04/24 07:55 Other Labs: Radiology Impressions Chest X-Ray 06/04/24 07:37 IMPRESSION: 1. Interval development of CHF since 04/11/2024. 2. Heart has slightly increased in size. Chest CTA 06/04/24 09:04 IMPRESSION: 1. No proximal pulmonary embolism. Evaluation of the peripheral pulmonary arteries is limited due to contrast bolus timing and motion. 2. Small bilateral pleural effusions with mild edema. Laboratory Results WBC 9.93 10^3/uL (3.29-11.43) 06/04/24 07:55 RBC 3.24 10^6/uL (3.85-5.65) L 06/04/24 07:55 Hgb 8.70 g/dL (11.27-16.99) L 06/04/24 07:55 Hct 27.6 % (36-47) L 06/04/24 07:55 MCV 85.2 fl (85-98) 06/04/24 07:55 MCH 26.9 pg (27-33) L 06/04/24 07:55 MCHC 31.5 g/dL (30-55) 06/04/24 07:55 RDW 13.8 % (12.1-15.1) 06/04/24 07:55 Plt Count 510 10^3/cmm (157-399) H 06/04/24 07:55 MPV 9.0 fL (7.4-10.4) 06/04/24 07:55 Neut % (Auto) 71.8 % 06/04/24 07:55 Lymph % (Auto) 14.2 % 06/04/24 07:55 Mobile % (Auto) 8.4 % 06/04/24 07:55 Eos % (Auto) 2.1 % 06/04/24 07:55 Baso % (Auto) 1.0 % 06/04/24 07:55 Neut # (Auto) 7.13 10^3/uL (1.8-7.7) 06/04/24 07:55 Lymph # (Auto) 1.4 10^3/uL (0.8-4.8) 06/04/24 07:55 Mobile # (Auto) 0.8 10^3/uL (0.2-0.9) 06/04/24 07:55 Eos # (Auto) 0.2 10^3/uL (0.0-0.8) 06/04/24 07:55 Baso # (Auto) 0.1 10^3/uL (0.0-0.1) 06/04/24 07:55 Nucleated RBC % (auto) 0.3 % 06/04/24 07:55 Nucleated RBCs # 0.0 /100WBC 06/04/24 07:55 D-Dimer 0.99 ug/mLFEU (0-0.59) H 06/04/24 07:55 Specimen Type Arterial 06/04/24 08:06 Sample Site Radial, left 06/04/24 08:06 ABG pH 7.46 (7.35-7.45) H 06/04/24 08:06 ABG pCO2 36.7 mmHg (35-45) 06/04/24 08:06 ABG pO2 57.9 mmHg (80.0-100.0) L 06/04/24 08:06 ABG PO2/FiO2 Ratio 275 06/04/24 08:06 ABG HCO3 26.1 mmol/L (22-26) H 06/04/24 08:06 ABG O2 Saturation 91.7 06/04/24 08:06 ABG Base Excess 2.1 mmol/L (-2.0-2.0) H 06/04/24 08:06 Aric Test Pos 06/04/24 08:06 A-a O2 Gradient 6.1 mmHg (5-10) 06/04/24 08:06 Hematocrit 26.8 % (37-47) L 06/04/24 08:06 Hgb O2 Saturation 89.3 % (95-100) L 06/04/24 08:06 Carboxyhemoglobin 1.4 %THgb (0.4-20.1) 06/04/24 08:06 Methemoglobin 1.2 % (0.4-1.5) 06/04/24 08:06 Total Hemoglobin 8.7 g/dL (12-16) L 06/04/24 08:06 Sodium 134.0 mmol/L (131-143) 06/04/24 08:06 Potassium 3.8 mmol/L (3.5-5.0) 06/04/24 08:06 Glucose 130.0 mg/dL (70-115) H 06/04/24 08:06 Ionized Calcium 1.2 mmol/L (1.1-1.4) 06/04/24 08:06 O2 Delivery Device Room air 06/04/24 08:06 FiO2 21.0 % 06/04/24 08:06 Air Valve Repairer ID Alison 06/04/24 08:06 Sodium 129 mmol/L (136-145) L 06/04/24 07:55 Potassium 4.0 mmol/L (3.5-5.1) 06/04/24 07:55 Chloride 94 mmol/L (98-107) L 06/04/24 07:55 Carbon Dioxide 26 mmol/L (22-29) 06/04/24 07:55 Anion Gap 13.0 (5-19) 06/04/24 07:55 BUN 11 mg/dL (6-20) 06/04/24 07:55 Creatinine 0.5 mg/dL (0.5-0.9) 06/04/24 07:55 GFR Calculation 135.3 mL/min (90-130) H 06/04/24 07:55 Glucose 143 mg/dL (65-115) H 06/04/24 07:55 Calculated Osmolality 270 mOsm/kg (285-295) L 06/04/24 07:55 Lactic Acid 1.1 mmol/L (0.5-2.2) 06/04/24 07:55 Calcium 8.3 mg/dL (8.5-10.5) L 06/04/24 07:55 Total Bilirubin 0.2 mg/dL (0.15-1.2) 06/04/24 07:55 AST 13 U/L (0-32) 06/04/24 07:55 ALT 14 U/L (0-33) 06/04/24 07:55 Alkaline Phosphatase 90 U/L (35-105) 06/04/24 07:55 Troponin T Baseline 8 ng/L (0-10) 06/04/24 07:55 Troponin T 120 Minute 7.14 ng/L (0-10) 06/04/24 10:22 Delta Troponin T -0.86 ABS# (0-10) L 06/04/24 10:22 Troponin T Hi Sens 6Hr 6.00 ng/L (0-10) 06/04/24 13:48 Troponin T Hi Sens 6Hr Delta -2.00 ng/L (0-12) L 06/04/24 13:48 NT-Pro-B Natriuret Pep 585 pg/mL (0-125) H 06/04/24 07:55 Total Protein 6.7 g/dL (6.6-8.7) 06/04/24 07:55 Albumin 3.9 g/dL (3.5-5.2) 06/04/24 07:55 Globulin 2.8 g/dL (1.3-4.6) 06/04/24 07:55 Urine Color Yellow (Yellow) 06/04/24 08:50 Urine Appearance Clear (CLEAR) 06/04/24 08:50 Urine pH 7.0 (5-7) 06/04/24 08:50 Ur Specific [place] 1.010 (1.005-1.030) 06/04/24 08:50 Urine Protein Negative (Negative) 06/04/24 08:50 Urine Glucose (UA) Negative (Normal) 06/04/24 08:50 Urine Ketones Negative (Negative) 06/04/24 08:50 Urine Blood Negative (Negative) 06/04/24 08:50 Urine Nitrate Negative (Negative) 06/04/24 08:50 Urine Bilirubin Negative (Negative) 06/04/24 08:50 Urine Urobilinogen 0.2 mg/dL (Negative) 06/04/24 08:50 Ur Leukocyte Esterase Negative (Negative) 06/04/24 08:50 Urine RBC 0-2 /hpf (0-2) 06/04/24 08:50 Urine WBC 0-5 /hpf (0-5) 06/04/24 08:50 Ur Squamous Epith Cells 0-5 /hpf (0-5) 06/04/24 08:50 Amorphous Sediment Not Reportable 06/04/24 08:50 Urine Bacteria None seen /hpf (NONE) 06/04/24 08:50 Hyaline Casts 0-4 /lpf H 06/04/24 08:50 Micro: Microbiology 06/04/24 10:22 Blood Culture - Preliminary Blood SPECIMEN COLLECTED 06/04/24 10:18 Blood Culture - Preliminary Blood SPECIMEN COLLECTED A&P Assessment and plan (1) Acute heart failure with preserved ejection fraction: Acute on chronic heart failure with preserved ejection fraction. Question is are her symptoms exacerbated due to recent surgery, initiation of rituximab with first dose being administered in April, in relation to anemia or suboptimally managed hypertension. There may be a component contributing of asthma with COPD but at the time of my evaluation no definitive wheezing. Management is complicated by chronic hyponatremia. Intensify diuretic therapy with additional doses of intravenous Lasix as tolerated to alleviate pulmonary and peripheral fluid build-up. Monitor fluid status closely for effect and adjust therapeutic approach as needed. May need increase in home dosing of furosemide. Is not chronically on potassium replacement with management. (2) Hypoxemia requiring supplemental oxygen: Has had home oxygen previously after admission with respiratory failure. Does not currently have oxygen in the home setting. Oxygen saturations today as low as low to mid 80s on room air at home. Suspect has some baseline hypoxemia related to KI/OHS exacerbated in the setting of pulmonary edema and anemia plus or minus effect of asthma with COPD overlap. Oxygen therapy with plan to do home oxygen evaluation prior to discharge, likely needs availability of oxygen at home (3) Postoperative anemia: Hemoglobin 8.7, down from 12.1 prior to surgery. No reported gross bleeding. Has not been on anticoagulation. May be a contributor to degree of shortness of breath and hypoxemia she has been experiencing. Current values could also be related to volume overload/delusional. Recheck hemoglobin in the morning along with coagulation studies, type and screen. (4) Status post lumbar spinal fusion: Surgery performed on May 23. Still has Steri-Strips in place with dressing. Was scheduled to follow-up with Dr. Han on June 05 though hospital stay will delay visit. Continue home pain medication which currently includes oxycodone. Patient is chronically on hydrocodone or oxycodone plus clonazepam plus other sedative agents as per home medication list and these will be continued at discharge unless clear indication to do otherwise. Her outpatient providers are working on adjusting medications over time. For now we will leave postsurgical dressing in place. (5) Type 2 diabetes mellitus: Hemoglobin A1c in early May 06.3. With adjustment to insulin therapy blood sugars in the weeks preceding surgery were averaging 115-130, much better. She did receive steroids in the emergency room so expect some hyperglycemia. Optimal blood sugar control needed to facilitate continued healing postoperatively. 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 From what she has been told, it sounds like potential SIADH related to mental health medications. Her primary prescribers are working on decreasing doses of her multiple potential contributing medications in a safe way for her. Current sodium levels are good for her but will need to be watched. Maintain careful monitoring of electrolytes. Adjust fluid intake and diuretics as necessary. Check uric acid level in am. Has known hypothyroidism on replacement. (7) Hypothyroidism: Chronically on levothyroxine high-dose, follows with Dr. Harris. Continue usual levothyroxine dosing. Qualifiers: Hypothyroidism type: postoperative Qualified Code(s): E89.0 - Postprocedural hypothyroidism (8) Hypertension: Historically can be difficult to control. Chronically on lisinopril and diuretic therapy IV diuresis for now, anticipate needing to increase home dosage. Will continue usual lisinopril dosing. Pain management and other medications that might impact blood pressure also ordered. Qualifiers: Hypertension type: primary hypertension Qualified Code(s): I10 - Essential (primary) hypertension (9) Depression with anxiety: Chronically on BuSpar, clonazepam, dextroamphetamine/amphetamine, oxcarbazepine, vilazodone, trazodone and ziprasidone. All of the above have been continued at usual dosages with patient to bring in her vilazodone from home. (10) SLE (systemic lupus erythematosus related syndrome): Predominant involvement is skin, joints, blood pressure, GI tract Continue immunosuppressive regimen with hydroxychloroquine. Currently have azathioprine on hold. Last dose of rituximab was May 03. (11) Asthma-COPD overlap syndrome: Has intermittent episodes of bronchitis. Recent baseline with more persistent symptoms though suspect related to fluid more so than inflammation presently. Continue breathing treatments as needed. Status post steroids x 1 dose in the emergency room, holding further steroid treatment for now, monitoring response. Continuing Singulair. Has Benadryl if needed. (12) KI (obstructive sleep apnea): Uses religiously at home. Ensure continuous adherence to CPAP therapy due to its importance in maintaining adequate respiratory function. Plan Inpatient admission IV diuresis with close monitoring of urine output, renal function, sodium levels In addition to other plans of care noted above plan to: Continue home statin therapy Continuing home PPI Patient will miss an appointment with Dr. Han while here; will notify clinic. VTE prophylaxis: SCDs currently until repeat hemoglobin in the morning, can consider pharmacological DVT prophylaxis if hemoglobin stable at that time GI Prophylaxis: PPI is a chronic medication which has continued Antibiotics: none Pending studies: Blood cultures, type and screen and morning labs to include uric acid Telemetry: Ordered secondary to respiratory status Lamar: not currently indicated Line(s): peripheral IVs Disposition plan: Home with outpatient follow up anticipated. Will need home oxygen evaluation prior to discharge. Anticipate increased dose of Lasix potentially. Will need follow-up electrolytes to monitor sodium level along with renal function and may need repeat hemoglobin level depending on clinical course. She will also need follow-up with Dr. Han rescheduled Code Status: Full Code Supportive care otherwise Findings, concerns and plans were discussed with patient and her and they both were given an opportunity to ask questions Attestations Medical Necessity Statement*: Anticipated stay greater than two midnights in this patient who is had progressively worsening respiratory function over the last few weeks following lumbar fusion surgery. Clinically has acute on chronic CHF with preserved ejection fraction as evidenced by bilateral pleural effusions on imaging along with peripheral edema. She has associated hypoxemia beyond what she may experience at baseline. She does have comorbidities to include asthma/COPD overlap, KI, OHS. I suspect postoperative anemia and any perioperative fluids administered may be contributing factors. She is also had significant hyponatremia complicating management recently. Her history of SLE and immunosuppressive therapy is another complicating factor. The reduction of fluid burden is prioritized to alleviate pulmonary symptoms while monitoring sodium levels, renal function and blood pressure closely. and High Time for a total of 85 minutes, includes reviewing past or interval history, examining/interviewing patient, placing orders, counseling patient/family/other support, discussing plan of care with staff and documenting encounter Diagnoses Acute heart failure with preserved ejection fraction I50.31 Hypoxemia requiring supplemental oxygen R09.02; Z99.81 Postoperative anemia D64.9 Status post lumbar spinal fusion Z98.1 Type 2 diabetes mellitus with diabetic polyneuropathy, with long-term current use of insulin E11.42; Z79.4 Diabetes mellitus shelter insulin use: with longwall headgate operator use Diabetes mellitus complication status: with neurologic complications Diabetes mellitus complication detail: with polyneuropathy Hyponatremia E87.1 Postoperative hypothyroidism E89.0 Hypothyroidism type: postoperative Primary hypertension I10 Hypertension type: primary hypertension Depression with anxiety F41.8 SLE (systemic lupus erythematosus related syndrome) M32.9 Asthma-COPD overlap syndrome J44.9 KI (obstructive sleep apnea) G47.33
[2024-06-04 17:33] LABS: Glucose Point of Care 221 mg/dL (70-110)
[2024-06-04 17:54] LABS: Covid PCR NEGATIVE (Negative); Influenza A NEGATIVE (Negative); Influenza B NEGATIVE (Negative); Respiratory Syncytial Virus Ce NEGATIVE (Negative)
[2024-06-04] MEDS: BuSPIRONE 10 mg Tablet 30 MG PO (17:58)
[2024-06-04] MEDS: oxyCODONE-APAP 10-325 mg Tablet 1 TAB PO ×2 (17:58→21:17)
[2024-06-04] MEDS: OXcarbazepine 300 mg Tablet 600 MG PO (17:58)
[2024-06-04] MEDS: hydroxychloroquine 200 mg Tablet PO (17:58)
[2024-06-04] MEDS: insulin lispro 100 unit/1 mL SUBCUT (18:00)
[2024-06-04] MEDS: FUROsemide 10 mg/mL SDV 2mL 20 MG IVP (18:59)
[2024-06-04] MEDS: gabapentin 300 mg Capsule 600 MG PO (20:49)
[2024-06-04] MEDS: trazodone 100 mg Tablet 200 MG PO (20:49)
[2024-06-04] MEDS: CLONazepam 1 mg Tablet PO (20:49)
[2024-06-04] MEDS: lisinopril 20 mg Tablet 40 MG PO (20:50)
[2024-06-04] MEDS: insulin glargine 100 units/1 mL 60 UNIT SUBCUT (21:18)
[2024-06-04 21:31] LABS: Glucose Point of Care 169 mg/dL (70-110)
[2024-06-04] MEDS: pantoprazole DR 40 mg Tablet PO (22:08)
[2024-06-05] VITALS (19 sets, daily range): BP systolic 138–152; BP diastolic 71–81; PULSE 72–91; RESP 16–24; TEMP 36.6–36.8; O2SAT 88–96
[2024-06-05] MEDS: ipratropium-albuterol 3 mL Neb INHALATION ×4 (00:34→11:44)
[2024-06-05] MEDS: oxyCODONE-APAP 10-325 mg Tablet 1 TAB PO ×3 (02:27→12:00)
[2024-06-05 04:33] LABS: Basophils # 0.1 10^3/uL (0.0-0.1); Basophils % 0.8 %; Eosinophils # 0.2 10^3/uL (0.0-0.8); Eosinophils % 1.4 %; Hematocrit 26.6 % (36-47); Lymphocytes # 2.1 10^3/uL (0.8-4.8); Mean Corpuscular HGB Conc 30.8 g/dL (30-55); Mean Corpuscular Hemoglobin 26.3 pg (27-33); Mean Corpuscular Volume 85.3 fl (85-98); Mean Platelet Volume 9.1 fL (7.4-10.4); Monocytes % 8.5 %; Neutrophils # 8.56 10^3/uL (1.8-7.7); Neutrophils % 70.2 %; Nucleated Red Blood Cells % 0.2 %; Platelet Count 525 10^3/cmm (157-399); Red Blood Count 3.12 10^6/uL (3.85-5.65); Red Cell Distribution Width 14.1 % (12.1-15.1)
[2024-06-05 04:43] LABS: INR 1.08 (0.8-1.2)
[2024-06-05 04:44] LABS: Partial Thromboplastin Time 28.6 SECONDS (23.9-36.7)
[2024-06-05 04:51] LABS: Anion Gap 16.5 (5-19); Blood Urea Nitrogen 13 mg/dL (6-20); Calcium 8.1 mg/dL (8.5-10.5); Carbon Dioxide 26 mmol/L (22-29); Chloride 96 mmol/L (98-107); Creatinine Clr Calc Pharmacy 184.2457; Glomerular Filtration Rate 109.6 mL/min (90-130); Glucose 187 mg/dL (65-115); Magnesium 1.9 mg/dL (1.7-2.3); Osmolality Calculated 285 mOsm/kg (285-295); Phosphorus 3.8 mg/dL (2.5-4.5); Potassium 3.5 mmol/L (3.5-5.1); Sodium 135 mmol/L (136-145)
[2024-06-05 04:59] LABS: Uric Acid 4.8 mg/dL (2.4-5.7)
[2024-06-05] MEDS: ziprasidone hcl 40 mg Capsule 80 MG PO (06:27)
[2024-06-05] MEDS: FUROsemide 10 mg/mL SDV 10mL 60 MG IVP (06:27)
[2024-06-05 07:44] LABS: Glucose Point of Care 160 mg/dL (70-110)
[2024-06-05] MEDS: insulin lispro 100 unit/1 mL SUBCUT (08:21)
[2024-06-05] MEDS: OXcarbazepine 300 mg Tablet 600 MG PO (08:23)
[2024-06-05] MEDS: pantoprazole DR 40 mg Tablet PO (08:23)
[2024-06-05] MEDS: gabapentin 300 mg Capsule 600 MG PO (08:23)
[2024-06-05] MEDS: atorvastatin 40 mg Tablet 20 MG PO (08:24)
[2024-06-05] MEDS: levothyroxine 200 mcg Tablet PO (08:24)
[2024-06-05] MEDS: montelukast sodium 10 mg Tablet PO (08:24)
[2024-06-05] MEDS: hydroxychloroquine 200 mg Tablet PO (08:24)
[2024-06-05] MEDS: BuSPIRONE 10 mg Tablet 30 MG PO (08:24)
[2024-06-05] MEDS: levothyroxine 25 mcg Tablet PO (08:24)
--- NOTE | 2024-06-05 08:42 | PC.NURSE ---
Addendum entered by Jame Dowell RN 06/05/24 08:42: per dr evelyne alicea verbal orders to leave the steri strips open to air and ff up w/ him in 4 weeks. Original Note: dressing removed on her lower back by dr evelyne granger in room.
--- NOTE | 2024-06-05 09:00 | PM.CONSULT ---
Providers/Reason For Consult Consulting Physician/Specialty*: Hospitalist Reason for Consult*: Postop patient Attending Physician: Kael Garcia MD Primary Care Provider: Elan Kuhn MD History of Present Illness History of Present Illness Lori Padron is a 44 year old female was made to the hospital for heart failure. Patient is about 2 weeks status post lumbar fusion from spine standpoint doing well. Review of Systems Const: Denies: fever(s) or chills Card: Denies: chest pain Resp: Reports: dyspnea, non-productive cough, wheezing and chest congestion GI: Denies: abdominal pain : Denies: dysuria, urinary frequency or urinary urgency Musc: Denies: neck pain or back pain Skin/Breast: Denies: rash Medications/Allergies Home Medications Medication Instructions Recorded Confirmed Last Taken Type diphenhydramine HCl 25 mg tablet 25 - 50 mg PO PRN 04/08/20 06/04/24 02/06/24 20:00 History (Benadryl Allergy) ziprasidone HCl 80 mg capsule 80 mg PO BID 08/24/22 06/04/24 06/03/24 History albuterol sulfate 90 mcg/actuation 2 puff inhalation Q4H PRN 09/20/22 06/04/24 06/04/24 Rx aerosol inhaler (Ventolin HFA) Shortness Of Breath #8.5 grams albuterol sulfate 2.5 mg/3 mL 2.5 mg (3 mL) inhalation Q4H PRN 12/02/22 06/04/24 06/03/24 Rx (0.083 %) solution for nebulization Shortness Of Breath #90 mL insulin syringes (disposable) 1 mL #25 ea 04/18/23 06/04/24 Unknown Rx oxcarbazepine 600 mg tablet 600 mg PO BID 07/13/23 06/04/24 06/03/24 History (Trileptal) buspirone 30 mg tablet 30 mg PO BID 08/26/23 06/04/24 06/04/24 History lisinopril 40 mg tablet 40 mg PO BEDTIME #90 tabs 12/12/23 06/04/24 06/03/24 Rx gabapentin 600 mg tablet 600 mg PO TID #180 tabs 12/22/23 06/04/24 06/04/24 Rx epinephrine 0.3 mg/0.3 mL 0.3 mg (0.3 mL) IM Q15M PRN 12/23/23 06/04/24 Unknown Rx injection, auto-injector (EpiPen anaphylaxis #2 ea 2-Edward) levothyroxine 200 mcg tablet 200 mcg PO DAILY #90 tabs 03/07/24 06/04/24 06/04/24 Rx azathioprine 50 mg tablet 100 mg (2 x 50 mg) PO BID #120 tabs 03/28/24 06/04/24 06/03/24 Rx hydroxychloroquine 200 mg tablet 200 mg PO BID #180 tabs 03/28/24 06/04/24 06/04/24 Rx clonazepam 1 mg tablet 1 mg PO BEDTIME Anxiety 04/11/24 06/04/24 06/03/24 History dextroamphetamine-amphetamine ER 1 cap PO QAM 04/11/24 06/04/24 06/03/24 History 30 mg 24hr capsule,extend release trazodone 100 mg tablet 200 mg PO BEDTIME 04/11/24 06/04/24 06/03/24 History vilazodone 10 mg tablet 10 mg PO QAM 04/11/24 06/04/24 06/03/24 History atorvastatin 20 mg tablet 20 mg PO DAILY #90 tabs 05/01/24 06/04/24 06/03/24 Rx blood-glucose meter,continuous #1 ea 05/01/24 06/04/24 Unknown Rx (Dexcom G7 Umbrella Repairer) blood-glucose sensor (Dexcom G7 #3 ea 05/01/24 06/04/24 Unknown Rx Sensor device) semaglutide 2 mg/dose (8 mg/3 mL) 2 mg (0.75 mL) SUBCUT Q7D #3 mL 05/01/24 06/04/24 05/22/24 Rx subcutaneous pen injector (Ozempic) Bone Growth Stimulator #1 ea 05/02/24 06/04/24 Unknown Rx furosemide 20 mg tablet 20 mg PO QAM PRN Edema #90 tabs 05/09/24 06/04/24 06/04/24 Rx montelukast 10 mg tablet 10 mg PO DAILY #90 tabs 05/14/24 06/04/24 06/03/24 Rx (Singulair) levothyroxine 25 mcg tablet 25 mcg PO DAILY #60 tabs 05/21/24 06/04/24 06/04/24 Rx insulin glargine 100 unit/mL (3 60 unit SUBCUT QPM 05/22/24 06/04/24 06/03/24 History mL) subcutaneous pen (Lantus Solostar U-100 Insulin) ondansetron 4 mg disintegrating 4 mg PO 3XD PRN n/v 05/22/24 06/04/24 Unknown History tablet oxycodone-acetaminophen 10 mg-325 1 tab PO Q4H 06/04/24 06/04/24 06/04/24 History mg tablet pantoprazole 40 mg tablet,delayed 40 mg PO BID 06/04/24 06/04/24 06/04/24 History release rituximab-abbs 10 mg/mL 1,000 mg IV .[id number] 06/04/24 06/04/24 05/03/24 History intravenous solution Allergies Allergy/AdvReac Type Severity Reaction Status Date / Time anifrolumab-fnia Allergy Severe hives Verified 06/04/24 07:49 [From Saphnelo] amoxicillin Allergy ALGY-Rash Verified 06/04/24 07:49 bee venom protein (honey bee) Allergy ALGY-Anaphy Verified 06/04/24 07:49 laxis cinnamon Allergy anaphylacti Verified 06/04/24 07:49 c desvenlafaxine [From Pristiq] Allergy Unknown Verified 06/04/24 07:49 fluoxetine [From Prozac] Allergy Unknown Verified 06/04/24 07:49 Latex, Natural Rubber Allergy ALGY-Rash Verified 06/04/24 07:49 oxytocin [From Pitocin] Allergy ADR-Itching Verified 06/04/24 07:49 Penicillins Allergy ALGY-Hives Verified 06/04/24 07:49 Sulfa (Sulfonamide Allergy ALGY-Rash Verified 06/04/24 07:49 Antibiotics) leflunomide AdvReac Intermediate gastric Verified 06/04/24 07:49 Current Medications Generic Name Dose Route Start Last Admin Trade Name Freq PRN Reason Stop Dose Admin Albuterol/Ipratropium 3 ml 06/04/24 20:00 06/05/24 08:04 Ipratropium-Albuterol 3 Ml Neb INHALATION 3 ml Q4H.RESPIRATORY HEATH Administration Atorvastatin Calcium 20 mg 06/05/24 09:00 06/05/24 08:24 Atorvastatin 40 Mg Tablet PO 20 mg DAILY HEATH Administration Buspirone HCl 30 mg 06/04/24 18:00 06/05/24 08:24 Buspirone 10 Mg Tablet PO 30 mg BID HEATH Administration Clonazepam 1 mg 06/04/24 16:45 06/04/24 20:49 Clonazepam 1 Mg Tablet PO 1 mg BEDTIME PRN Administration ANXIETY Furosemide 60 mg 06/05/24 06:00 06/05/24 06:27 Furosemide 10 Mg/Ml Sdv 10ml IVP 60 mg Q24H HEATH Administration Gabapentin 600 mg 06/04/24 21:00 06/05/24 08:23 Gabapentin 300 Mg Capsule PO 600 mg TID HEATH Administration Hydroxychloroquine Sulfate 200 mg 06/04/24 18:00 06/05/24 08:24 Hydroxychloroquine 200 Mg Tablet PO 200 mg BID HEATH Administration Insulin Glargine 60 unit 06/04/24 21:00 06/04/24 21:18 Insulin Glargine 100 Units/1 Ml SUBCUT 60 unit BEDTIME HEATH Administration Insulin Human Lispro 0 unit 06/04/24 21:00 06/04/24 21:20 Insulin Lispro 100 Unit/1 Ml SUBCUT Not Given BEDTIME HEATH Protocol Insulin Human Lispro 0 unit 06/05/24 08:00 06/05/24 08:21 Insulin Lispro 100 Unit/1 Ml SUBCUT 4 unit TIDWM HEATH Administration Protocol Levothyroxine Sodium 200 mcg 06/05/24 09:00 06/05/24 08:24 Levothyroxine 200 Mcg Tablet PO 200 mcg DAILY HEATH Administration Levothyroxine Sodium 25 mcg 06/05/24 09:00 06/05/24 08:24 Levothyroxine 25 Mcg Tablet PO 25 mcg DAILY HEATH Administration Lisinopril 40 mg 06/04/24 21:00 06/04/24 20:50 Lisinopril 20 Mg Tablet PO 40 mg BEDTIME HEATH Administration Montelukast Sodium 10 mg 06/05/24 09:00 06/05/24 08:24 Montelukast Sodium 10 Mg Tablet PO 10 mg DAILY HEATH Administration Oxcarbazepine 600 mg 06/04/24 18:00 06/05/24 08:23 Oxcarbazepine 300 Mg Tablet PO 600 mg BID HEATH Administration Oxycodone/Acetaminophen 1 tab 06/04/24 16:45 06/05/24 06:27 Oxycodone-Apap 10-325 Mg Tablet PO 1 tab Q4H PRN Administration MODERATE TO SEVERE PAIN Pantoprazole Sodium 40 mg 06/04/24 21:00 06/05/24 08:[address] 40 Mg Tablet PO 40 mg BID@09,21 HEATH Administration Trazodone HCl 200 mg 06/04/24 21:00 06/04/24 20:49 Trazodone 100 Mg Tablet PO 200 mg BEDTIME HEATH Administration Ziprasidone 80 mg 06/05/24 07:00 06/05/24 06:27 Ziprasidone Hcl 40 Mg Capsule PO 80 mg 0700,1700 HEAHT Administration PFSH Acute PFSH: Medical History History of echocardiogram 03/2024 EF 60%, Grade I/IV, normal PAP, no LVH, RAP 5mmHg OCD (obsessive compulsive disorder) Hernia of fascia Abnormal mammogram of right breast Hyponatremia chronic, may be related to some medications, which are being adjusted by primary prescribers Hypertension Syncope ADHD Generalized anxiety disorder Fatty liver Fatigue B12 deficiency Lung injury associated with vaping Contact dermatitis SLE (systemic lupus erythematosus related syndrome) Hypothyroidism COPD (chronic obstructive pulmonary disease) Leukocytosis chronic Rosacea Positive double stranded DNA antibody test Labral tear of left hip joint KI (obstructive sleep apnea) Morbid obesity Bipolar 1 disorder PTSD (post-traumatic stress disorder) Chronic urticaria Insomnia Mild intermittent asthma Allergic rhinitis GERD (gastroesophageal reflux disease) Shingles 4th occurrence Hyperlipemia, mixed Helicobacter pylori gastritis Mandibular fracture Diabetes mellitus Type 2 Depression Surgical History History of left hip replacement History of cardiac catheterization 04/12/2024 Dr House: No disease noted in the Left Main, Left Anterior Descending, Right, or Circumflex coronary arteries. History of ankle surgery (02/08/24) By Dr Murphy: Left modified Brostr?m with internal brace, repair left peroneus brevis tendon split tear and peroneus longus tenosynovectomy, topaz achilles tendon with PRP injection Status post lumbar spinal fusion (05/23/24) Dr Han, L4-5 History of mandibular surgery For mandibular fracture H/O esophagogastroduodenoscopy (09/02/21) H/O thyroidectomy done due to multinodular goiter S/P cholecystectomy S/P tonsillectomy and adenoidectomy S/P breast lumpectomy Right breast lumpectomy for benign disease Previous section Family History Father Hypertension Cancer testicular Cardiac abnormality Mother Congestive heart failure (CHF) COPD (chronic obstructive pulmonary disease) Diabetes Cancer ovarian and uterine Family/Other Cancer Maternal aunt- HR2 breast Other CAD (coronary artery disease) Family history of premature coronary artery disease Hyperlipidemia Lung disease Psychiatric illness Rheumatoid arthritis Stroke Denies family history of Lupus Clotting disorder Dementia Chronic kidney disease (CKD) Anesthesia complication Bleeding disorder Social History Smoking and tobacco/nicotine status: never used tobacco/nicotine Quit status (tobacco/nicotine): has quit using Year quit tobacco: July Former quit date comment: Hx of 2 ppd X 25 years, started at age 16 yr. 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 [employer] Sexually active: Yes Do you think of yourself as: Straight/Heterosexual Current gender identity: Female [place]/Oriental Orthodox: [employer] Special balbina needs: No Agree to transfusion: Yes Vitals/I&O/Wt Last Vital Signs Temp 98.2 F 06/05/24 08:00 Pulse 81 06/05/24 08:00 Resp 21 H 06/05/24 08:00 BP 152/75 06/05/24 08:00 Pulse Ox 93 06/05/24 08:00 O2 Del Method Nasal Cannula 06/05/24 08:00 O2 Flow Rate 2 06/05/24 04:08 06/04/24 06/05/24 06/05/24 22:59 06:59 14:59 Intake Total 690 / 690 Output Total 1500 / 1500 2099 / 2099 Balance -810 / -810 -2100 / -2100 Weight last 48 hrs Weight 333 lb Weight 333 lb Weight 338 lb 2.24 oz Weight 317 lb Physical Exam Narrative: Wound is clean dry and intact dressing was taken off. Will keep the dressing off. No complaints of back or leg pain Data 06/05/24 03:47 06/05/24 03:47 Micro: Microbiology 06/04/24 10:22 Blood Culture - Preliminary Blood SPECIMEN COLLECTED 06/04/24 10:18 Blood Culture - Preliminary Blood SPECIMEN COLLECTED A&P Assessment and plan (1) Status post lumbar spinal fusion: Wounds clean dry intact will keep the dressing. Follow-up in 4 weeks in orthopedic clinic. Coding Level of Care Code Acute Code for Chg Fwd Diagnoses Status post lumbar spinal fusion Z98.1
--- NOTE | 2024-06-05 09:53 | PM.DCS ---
Discharge Providers Date of Admission: 06/04/24 13:31 Date of Discharge: June 05, 2024 Attending Provider at Admission: Addie Lu MD Attending Provider at Discharge: Kael Garcia MD Primary Care Provider: Elan Kuhn MD Diagnoses at Discharge Discharge Diagnosis (1) Status post lumbar spinal fusion: Status: Acute Permanent problem details: Dr Han, L4-5 Reason for Visit Reason for Visit: SOB Hospital Course Hospital Course Lori is a 44-year-old white female who presented to the hospital with shortness of breath consistent with acute diastolic heart failure. She has multiple comorbidities as outlined in her history and physical. She was diuresed with IV Lasix, and was feeling much better by June 05. She had diuresed approximately 3000 mL by then. She wished to go home. She had previously had oxygen and wanted evaluated for that again. I discussed with her a variety of treatment regarding her diastolic heart failure. She had a previous echocardiogram recently done that demonstrated this. She also had a recent angiogram demonstrating no atherosclerotic disease. We discussed increasing her Lasix to 40 mg daily. She will not take any additional/added salt. She had instructed in this in the past secondary to chronic hyponatremia. We will add Farxiga 10 mg daily for heart failure indication. Incidentally this will also help with her diabetic management, and potentially improve her sodium significantly. She will get a BMP and a CBC in 3 to 5 days, and follow-up with her primary care provider. She may need the addition of potassium, which can be done at that check, but not necessarily so secondary to her MELVIN inhibitor use. Risks and benefits of Farxiga were discussed in detail including UTI, hypernatremia, dehydration, etc. She was able to ask questions and agreed with the plan. Physical Exam Narrative: General Exam no distress, reporting she feels close to back to normal Neck is supple Cardiovascular regular rate and rhythm Lungs clear no crackles or wheezes Abdomen soft Extremities no cyanosis clubbing or edema Discharge Data Studies Completed and Pending Completed Studies During Hospitalization Category Date Time Status CT angio chest PE protcl [id number] Stat Cat Scan 06/04/24 09:04 Completed XR chest 1V portable [id number] Stat Exams 06/04/24 07:37 Completed Pending at discharge Category Date Time Status Blood Culture Stat Lab 06/04/24 10:22 Results Radiology Impressions Chest X-Ray 06/04/24 07:37 IMPRESSION: 1. Interval development of CHF since 04/11/2024. 2. Heart has slightly increased in size. Chest CTA 06/04/24 09:04 IMPRESSION: 1. No proximal pulmonary embolism. Evaluation of the peripheral pulmonary arteries is limited due to contrast bolus timing and motion. 2. Small bilateral pleural effusions with mild edema. Laboratory Results WBC 12.20 10^3/uL (3.29-11.43) H 06/05/24 03:47 RBC 3.12 10^6/uL (3.85-5.65) L 06/05/24 03:47 Hgb 8.20 g/dL (11.27-16.99) L 06/05/24 03:47 Hct 26.6 % (36-47) L 06/05/24 03:47 MCV 85.3 fl (85-98) 06/05/24 03:47 MCH 26.3 pg (27-33) L 06/05/24 03:47 MCHC 30.8 g/dL (30-55) 06/05/24 03:47 RDW 14.1 % (12.1-15.1) 06/05/24 03:47 Plt Count 525 10^3/cmm (157-399) H 06/05/24 03:47 MPV 9.1 fL (7.4-10.4) 06/05/24 03:47 Neut % (Auto) 70.2 % 06/05/24 03:47 Lymph % (Auto) 17.0 % 06/05/24 03:47 Cooper % (Auto) 8.5 % 06/05/24 03:47 Eos % (Auto) 1.4 % 06/05/24 03:47 Baso % (Auto) 0.8 % 06/05/24 03:47 Neut # (Auto) 8.56 10^3/uL (1.8-7.7) H 06/05/24 03:47 Lymph # (Auto) 2.1 10^3/uL (0.8-4.8) 06/05/24 03:47 Cooper # (Auto) 1.0 10^3/uL (0.2-0.9) H 06/05/24 03:47 Eos # (Auto) 0.2 10^3/uL (0.0-0.8) 06/05/24 03:47 Baso # (Auto) 0.1 10^3/uL (0.0-0.1) 06/05/24 03:47 Nucleated RBC % (auto) 0.2 % 06/05/24 03:47 Nucleated RBCs # 0.0 /100WBC 06/05/24 03:47 PT 14.40 SECONDS (12.1-14.9) 06/05/24 03:47 INR 1.08 (0.8-1.2) 06/05/24 03:47 APTT 28.6 SECONDS (23.9-36.7) 06/05/24 03:47 D-Dimer 0.99 ug/mLFEU (0-0.59) H 06/04/24 07:55 Specimen Type Arterial 06/04/24 08:06 Sample Site Radial, left 06/04/24 08:06 ABG pH 7.46 (7.35-7.45) H 06/04/24 08:06 ABG pCO2 36.7 mmHg (35-45) 06/04/24 08:06 ABG pO2 57.9 mmHg (80.0-100.0) L 06/04/24 08:06 ABG PO2/FiO2 Ratio 275 06/04/24 08:06 ABG HCO3 26.1 mmol/L (22-26) H 06/04/24 08:06 ABG O2 Saturation 91.7 06/04/24 08:06 ABG Base Excess 2.1 mmol/L (-2.0-2.0) H 06/04/24 08:06 Aric Test Pos 06/04/24 08:06 A-a O2 Gradient 6.1 mmHg (5-10) 06/04/24 08:06 Hematocrit 26.8 % (37-47) L 06/04/24 08:06 Hgb O2 Saturation 89.3 % (95-100) L 06/04/24 08:06 Carboxyhemoglobin 1.4 %THgb (0.4-20.1) 06/04/24 08:06 Methemoglobin 1.2 % (0.4-1.5) 06/04/24 08:06 Total Hemoglobin 8.7 g/dL (12-16) L 06/04/24 08:06 Sodium 134.0 mmol/L (131-143) 06/04/24 08:06 Potassium 3.8 mmol/L (3.5-5.0) 06/04/24 08:06 Glucose 130.0 mg/dL (70-115) H 06/04/24 08:06 Ionized Calcium 1.2 mmol/L (1.1-1.4) 06/04/24 08:06 O2 Delivery Device Room air 06/04/24 08:06 FiO2 21.0 % 06/04/24 08:06 Zone Maintenance Technician ID Alison 06/04/24 08:06 Sodium 135 mmol/L (136-145) L 06/05/24 03:47 Potassium 3.5 mmol/L (3.5-5.1) 06/05/24 03:47 Chloride 96 mmol/L (98-107) L 06/05/24 03:47 Carbon Dioxide 26 mmol/L (22-29) 06/05/24 03:47 Anion Gap 16.5 (5-19) 06/05/24 03:47 BUN 13 mg/dL (6-20) 06/05/24 03:47 Creatinine 0.6 mg/dL (0.5-0.9) 06/05/24 03:47 GFR Calculation 109.6 mL/min (90-130) 06/05/24 03:47 Glucose 187 mg/dL (65-115) H 06/05/24 03:47 POC Glucose 160 mg/dL (70-110) H 06/05/24 07:40 Calculated Osmolality 285 mOsm/kg (285-295) 06/05/24 03:47 Lactic Acid 1.1 mmol/L (0.5-2.2) 06/04/24 07:55 Uric Acid 4.8 mg/dL (2.4-5.7) 06/05/24 03:47 Calcium 8.1 mg/dL (8.5-10.5) L 06/05/24 03:47 Phosphorus 3.8 mg/dL (2.5-4.5) 06/05/24 03:47 Magnesium 1.9 mg/dL (1.7-2.3) 06/05/24 03:47 Total Bilirubin 0.2 mg/dL (0.15-1.2) 06/04/24 07:55 AST 13 U/L (0-32) 06/04/24 07:55 ALT 14 U/L (0-33) 06/04/24 07:55 Alkaline Phosphatase 90 U/L (35-105) 06/04/24 07:55 Troponin T Baseline 8 ng/L (0-10) 06/04/24 07:55 Troponin T 120 Minute 7.14 ng/L (0-10) 06/04/24 10:22 Delta Troponin T -0.86 ABS# (0-10) L 06/04/24 10:22 Troponin T Hi Sens 6Hr 6.00 ng/L (0-10) 06/04/24 13:48 Troponin T Hi Sens 6Hr Delta -2.00 ng/L (0-12) L 06/04/24 13:48 NT-Pro-B Natriuret Pep 585 pg/mL (0-125) H 06/04/24 07:55 Total Protein 6.7 g/dL (6.6-8.7) 06/04/24 07:55 Albumin 3.9 g/dL (3.5-5.2) 06/04/24 07:55 Globulin 2.8 g/dL (1.3-4.6) 06/04/24 07:55 Urine Color Yellow (Yellow) 06/04/24 08:50 Urine Appearance Clear (CLEAR) 06/04/24 08:50 Urine pH 7.0 (5-7) 06/04/24 08:50 Ur Specific [place] 1.010 (1.005-1.030) 06/04/24 08:50 Urine Protein Negative (Negative) 06/04/24 08:50 Urine Glucose (UA) Negative (Normal) 06/04/24 08:50 Urine Ketones Negative (Negative) 06/04/24 08:50 Urine Blood Negative (Negative) 06/04/24 08:50 Urine Nitrate Negative (Negative) 06/04/24 08:50 Urine Bilirubin Negative (Negative) 06/04/24 08:50 Urine Urobilinogen 0.2 mg/dL (Negative) 06/04/24 08:50 Ur Leukocyte Esterase Negative (Negative) 06/04/24 08:50 Urine RBC 0-2 /hpf (0-2) 06/04/24 08:50 Urine WBC 0-5 /hpf (0-5) 06/04/24 08:50 Ur Squamous Epith Cells 0-5 /hpf (0-5) 06/04/24 08:50 Amorphous Sediment Not Reportable 06/04/24 08:50 Urine Bacteria None seen /hpf (NONE) 06/04/24 08:50 Hyaline Casts 0-4 /lpf H 06/04/24 08:50 Coronavirus (PCR) Negative (Negative) 06/04/24 08:20 Influenza A (PCR) Negative (Negative) 06/04/24 08:20 Influenza Type B (PCR) Negative (Negative) 06/04/24 08:20 RSV (PCR) Negative (Negative) 06/04/24 08:20 Blood Type A Positive 06/05/24 03:47 Rho(D) Type Rh positive 06/05/24 03:47 Antibody Screen Negative 06/05/24 03:47 Vitals Last Vital Signs Temp 98.2 F 06/05/24 08:00 Pulse 81 06/05/24 08:00 Resp 21 H 06/05/24 08:00 BP 152/75 06/05/24 08:00 Pulse Ox 93 06/05/24 08:00 O2 Del Method Nasal Cannula 06/05/24 08:00 O2 Flow Rate 2 06/05/24 04:08 Discharge Plan Discharge Patient Disposition: Home Condition: Stable Prescriptions: New ferrous sulfate 325 mg (65 mg iron) tablet,delayed release (DR/EC) 325 mg PO BID Qty: 60 0RF dapagliflozin propanediol [Farxiga] 10 mg tablet 10 mg PO DAILY Qty: 30 0RF furosemide [Lasix] 40 mg tablet 40 mg PO DAILY Qty: 30 0RF Continued trazodone 100 mg tablet 200 mg PO BEDTIME azathioprine 50 mg tablet 100 mg PO BID Qty: 120 4RF hydroxychloroquine 200 mg tablet 200 mg PO BID Qty: 180 1RF epinephrine [EpiPen 2-Edward] 0.3 mg/0.3 mL auto-injector 0.3 mg IM Q15M PRN (Reason: anaphylaxis) Qty: 2 0RF Rx Instructions: for 2 doses levothyroxine 200 mcg tablet 200 mcg PO DAILY Qty: 90 1RF (DME) Dexcom G7 Sensor Device See Rx Instructions .Route Qty: 3 3RF Rx Instructions: As directed (DME) Dexcom G7 Aircraft Electrical Systems Specialist Misc See Rx Instructions .Route Qty: 1 0RF Rx Instructions: As directed Ozempic 2 mg/dose (8 mg/3 mL) pen injector 2 mg SUBCUT Q7D Qty: 3 3RF Rx Instructions: inject 1 pen ;sq; once weekly albuterol sulfate [Ventolin HFA] 90 mcg/actuation HFA aerosol inhaler 2 puff INHALATION Q4H PRN (Reason: Shortness Of Breath) Qty: 8.5 3RF (DME) insulin syringes (disposable) 1 mL syringe See Rx Instructions .ROUTE .MEDSUPPLY Qty: 25 1RF Rx Instructions: As directed oxcarbazepine [Trileptal] 600 mg tablet 600 mg PO BID Rx Instructions: take 1 tablet by mouth in the am, then 1 tablet at bedtime levothyroxine 25 mcg tablet 25 mcg PO DAILY Qty: 60 3RF Rx Instructions: take 25mcg with [id number] daily albuterol sulfate 2.5 mg /3 mL (0.083 %) solution for nebulization 2.5 mg inhalation Q4H PRN (Reason: Shortness Of Breath) Qty: 90 3RF lisinopril 40 mg tablet 40 mg PO BEDTIME Qty: 90 2RF gabapentin 600 mg tablet 600 mg PO TID Qty: 180 1RF atorvastatin 20 mg tablet 20 mg PO DAILY Qty: 90 0RF (DME) Bone Growth Stimulator See Rx Instructions .Route .MEDSUPPLY Qty: 1 0RF Rx Instructions: As directed montelukast [Singulair] 10 mg tablet 10 mg PO DAILY Qty: 90 0RF diphenhydramine HCl [Benadryl Allergy] 25 mg Tablet 25 - 50 mg PO PRN ondansetron 4 mg tablet,disintegrating 4 mg PO 3XD PRN (Reason: n/v) Rx Instructions: DISSOLVE ONE TABLET BY MOUTH EVERY 6 HOURS NEEDED FOR NAUSEA AND VOMITING insulin glargine [Lantus Solostar U-100 Insulin] 100 unit/mL (3 mL) insulin pen 60 unit SUBCUT QPM oxycodone-acetaminophen 10-325 mg tablet 1 tab PO Q4H pantoprazole 40 mg Tablet,Delayed Release (Dr/Ec) 40 mg PO BID rituximab-abbs 10 mg/mL Solution 1,000 mg IV .[id number] ziprasidone HCl 80 mg Capsule 80 mg PO BID buspirone 30 mg tablet 30 mg PO BID clonazepam 1 mg tablet 1 mg PO BEDTIME dextroamphetamine-amphetamine 30 mg capsule,extended release 24hr 1 cap PO QAM vilazodone 10 mg tablet 10 mg PO QAM Discontinued furosemide 20 mg tablet 20 mg PO QAM PRN (Reason: Edema) Qty: 90 0RF Discharge Orders: Discharge Order (Routine); Ordered 06/05/24 Ordered By: Kael Garcia Referrals: Elan Kuhn MD [Primary Care Provider] - 4-7 days (BMP and CBC on Tuesday) Discharge Diet: Regular and Cardiac Discharge Activity: Increase activity as tolerated Patient Instructions: Opioid Safety Activity Restrictions/Additional Instructions: BMP and CBC on Tuesday Take all medicine as prescribed Follow-up with your primary care provider 3 to 5 days Home oxygen evaluation prior to discharge No need for added salt Initiate Lasix 40 mg a day, Farxiga 10 mg daily. Monitor blood pressure, home blood sugar to make sure low blood pressure or low blood sugar do not occur. Follow-up in 4 weeks in the orthopedic clinic. Discharge Attestations Time Spent in Discharge Care*: greater than 30 min Status at Discharge: Cognitive status at discharge: cognitively intact, Behavioral status at discharge: cooperative, Quality Metrics Clinical Quality Measures [ No reported AMI, CVA or VTE this stay] Coding Level of Care Code 33869 Total time (in minutes) for Discharge: 35 Diagnoses Status post lumbar spinal fusion Z98.1
--- NOTE | 2024-06-05 10:12 | PC.CHAP ---
Pastoral Care Encounter/Spiritual Assessment Type of Contact [] Declined home builder visit [] Patient/Family/Request visit [] Outpatient visit [] Follow-up visit [] Physician referral [] Code/Alert [x] Routine visit [] Staff referral [] Actively dying [] Patient sleeping [] Family support [] [] Out of room [] Palliative care [] [] Receiving care in room [] Pre-surgical visit [] Trauma [] Long length of stay [] ICU visit [] Other: Relational/Emotional Strength [x] Patient feels connected with others/family/visitors/staff [] Distress [] Loneliness/isolation [] Abandonment Spirituality of Patient [x] Person of [place] [] Attends Religion of their [place] [x] Believes in Prayer [] Reads Bible or Druze materials [] There are Spiritual issues to be addressed Cake Icer And Packer Interventions [x] Prayer [x] Active listening [] Non-anxious presence [x] Spiritual/emotional support [] Crisis/trauma care [] Spiritual counseling [] Bereavement support [] Provided bereavement packet [] Provided Bible/devotional materials [] Provided toy/stuffed animal, coloring book to patient or family member [] Provided Communion [] Anointing/[place] [] Salvation [x] Completed spiritual assessment [] Other: Impact on Illness or Injury [] Angry [] Fearful [] Anxious [] Often cries [] Exhaustion [] Unable to work [] Unable to attend zoroastrian [] Unable to walk/stand [] Unable to read [] Unable to drive [] Unable to eat/drink [] Unable to sleep [] Unable to be with family [] Patient intubated [] Other: Summary Time spent with patient 5 min
[2024-06-05 12:31] LABS: Glucose Point of Care 102 mg/dL (70-110)
--- NOTE | 2024-06-05 14:15 | PC.NURSE ---
Oxygen and meds to meds has been delivered.
== END 2024-06-05 14:15 | disposition home or self-care (01) ==
LOC: ER 07:58 → CSU 06-05 07:04
PROVIDERS: Admitting Provider Hospitalist; Emergency Provider Family Medicine; PCP Family Medicine; Visit Provider Internal Medicine
DX: R06.02 Shortness of breath (principal); I11.0 Hypertensive heart disease with heart failure; I50.30 Unspecified diastolic (congestive) heart failure; Z98.1 Arthrodesis status; Z79.4 Long term (current) use of insulin; F41.1 Generalized anxiety disorder; J44.9 Chronic obstructive pulmonary disease, unspecified; E78.2 Mixed hyperlipidemia; E11.9 Type 2 diabetes mellitus without complications; F32.A Depression, unspecified; Z82.49 Family history of ischemic heart disease and other diseases of the circulatory system; G47.33 Obstructive sleep apnea (adult) (pediatric); E66.01 Morbid (severe) obesity due to excess calories; Z68.43 Body mass index [BMI] 50.0-59.9, adult
CPT/HCPCS: 0241U; 36415; 36416; 36600; 71045; 71275; 80048; 80051; 80053; 81001; 82330; 82805; 82962; 83605; 83735; 83880; 84100; 84484; 84550; 85025; 85378; 85610; 85730; 86850; 86900; 87040; 93005; 94640; 94660; 94760; 96372; 96374; 96375; 96376; 99285; G0378; J1815; J1940; J2270; J2919

== ENCOUNTER → 2024-06-14 12:50 | Outpatient (BNVA) | payer OTHER, MEDICAID, SELFPAY | PROVIDERS: PCP Family Medicine; Visit Provider Orthopaedic Surgery | DX: Z98.1 Arthrodesis status (principal) | CPT/HCPCS: 99024 ==

== ENCOUNTER 2024-06-20 07:54 | Oncology outpatient (recurring) (ONCR) | payer OTHER, MEDICAID, SELFPAY ==
[2024-06-20 08:19] VITALS: BP 154/83; PULSE 100; RESP 18; TEMP 36.4; O2SAT 99
[2024-06-20] MEDS: sodium chloride 0.9% 250 ML 75 ML IV (09:04)
[2024-06-20] MEDS: acetaminophen 325 mg Tablet 650 MG PO (09:04)
[2024-06-20] MEDS: methylPREDNISolone sod succ 125 mg/2 mL INJ IVP (09:05)
[2024-06-20] MEDS: diphenhydrAMINE 50 mg/mL SDV 1mL IVP (09:09)
[2024-06-20] MEDS: rituximab-abbs 1,000 MG in sodium chloride 0.9% 500 ML 70 MG IV (09:41)
[2024-06-20 09:46] VITALS: BP 142/70; PULSE 87; RESP 16; TEMP 36.7; O2SAT 97
[2024-06-20 10:15] VITALS: BP 144/65; PULSE 83; RESP 16; TEMP 36.7; O2SAT 96
[2024-06-20 10:49] VITALS: BP 152/73; PULSE 88; RESP 16; TEMP 36.7; O2SAT 96
[2024-06-20 11:20] VITALS: BP 119/67; PULSE 77; RESP 16; TEMP 36.7; O2SAT 97
[2024-06-20 12:58] VITALS: BP 127/78; PULSE 86; RESP 17; TEMP 36.6; O2SAT 95
== END 2024-06-28 23:59 | disposition home or self-care (01) ==
PROVIDERS: PCP Family Medicine; Visit Provider Internal Medicine Rheumatology
DX: M32.9 Systemic lupus erythematosus, unspecified (principal); Z79.899 Other long term (current) drug therapy
CPT/HCPCS: 96375; 96413; 96415; J1200; J2919; J7040; J7050; Q5115

== ENCOUNTER → 2024-06-22 12:11 | Outpatient (BNVA) | payer OTHER, MEDICAID, SELFPAY | PROVIDERS: PCP Family Medicine; Visit Provider Family Medicine | DX: E87.1 Hypo-osmolality and hyponatremia (principal) | CPT/HCPCS: 80053 ==

== ENCOUNTER → 2024-06-26 14:00 | Outpatient (BNVA) | payer OTHER, MEDICAID, SELFPAY | PROVIDERS: PCP Family Medicine; Visit Provider Internal Medicine Cardiovascular Disease | DX: M32.9 Systemic lupus erythematosus, unspecified (principal); R09.89 Other specified symptoms and signs involving the circulatory and respiratory systems; I50.9 Heart failure, unspecified; D64.9 Anemia, unspecified | CPT/HCPCS: 99204 ==

== ENCOUNTER → 2024-07-03 13:33 | Outpatient (BNVA) | payer OTHER, MEDICAID, SELFPAY | PROVIDERS: PCP Family Medicine; Visit Provider Dermatology | DX: B35.3 Tinea pedis (principal); L71.8 Other rosacea; M32.10 Systemic lupus erythematosus, organ or system involvement unspecified | CPT/HCPCS: 99214 ==

== ENCOUNTER 2024-07-12 05:47 | Outpatient (CLI) | payer OTHER, SELFPAY ==
[2024-07-12] VITALS (18 sets, daily range): BP systolic 107–134; BP diastolic 59–113; PULSE 78–95; RESP 14–18; TEMP 36.8; O2SAT 95–100; BMI 52.4
[2024-07-12 06:44] LABS: Basophils # 0.1 10^3/uL (0.0-0.1); Basophils % 1.1 %; Eosinophils # 0.1 10^3/uL (0.0-0.8); Eosinophils % 1.5 %; Hematocrit 38.1 % (36-47); Lymphocytes # 1.3 10^3/uL (0.8-4.8); Lymphocytes % 15.3 %; Mean Corpuscular Hemoglobin 26.7 pg (27-33); Mean Corpuscular Volume 83.4 fl (85-98); Mean Platelet Volume 10.1 fL (7.4-10.4); Monocytes # 0.8 10^3/uL (0.2-0.9); Monocytes % 9.4 %; Neutrophils # 6.26 10^3/uL (1.8-7.7); Neutrophils % 71.7 %; Nucleated Red Blood Cells % 0 %; Platelet Count 355 10^3/cmm (157-399); Red Blood Count 4.57 10^6/uL (3.85-5.65); White Blood Count 8.74 10^3/uL (3.29-11.43)
[2024-07-12 07:03] LABS: Anion Gap 16.6 (5-19); Blood Urea Nitrogen 15 mg/dL (6-20); Carbon Dioxide 22 mmol/L (22-29); Chloride 99 mmol/L (98-107); Creatinine Clr Calc Pharmacy 176.1502; Glomerular Filtration Rate 109.6 mL/min (90-130); Glucose 281 mg/dL (65-115); Osmolality Calculated 287 mOsm/kg (285-295); Potassium 4.6 mmol/L (3.5-5.1); Sodium 133 mmol/L (136-145)
--- NOTE | 2024-07-12 08:54 | W.PM.OPSUD ---
Surgery/Procedure H&P Update DATE OF PROCEDURE: July 12, 2024 DATE H&P PERFORMED: 06/26/24 H&P UPDATE INFORMATION: I have reviewed H&P completed within last 30 days, I have examined patient prior to procedure and No changes to prior documentation PREOP DIAGNOSIS: Suspected pulmonary hypertension, unexplained shortness of breath PRIMARY INDICATION FOR PROCEDURE: Respiratory failure Hypoxia Persistent shortness of breath Suspected pulmonary hypertension History of lupus PLANNED PROCEDURE: Operation Date: 07/12/24 07:00 Proposed Procedures p Cardiac Catheterization(Right) - Snehal House MD PATIENT REASSESSED PRIOR TO SEDATION, WITH NO CHANGE NOTED: Yes PHYSICAL EXAM: alert, oriented x 3, clear to auscultation bilaterally, regular rate & rhythm and operative site marked AIRWAY EVAL/ANESTHESIA PLAN: ASA II, Risks, benefits & alternatives of sedation and/or procedure discussed and Patient agrees to continue as planned ADDITIONAL INFORMATION: Mallampati 2
[2024-07-12 09:25] LABS: Arterial Blood Gas Hematocrit 37.1 % (37-47); Blood Gas Sample Type Venous; Carboxyhemoglobin 0.9 %THgb (0.4-20.1); HGB O2 Sat 70.9 % (95-100); Methemoglobin 1.1 % (0.4-1.5); Total Hemoglobin 12.1 g/dL (12-16)
[2024-07-12 09:27] LABS: Blood Gas Operator Identificat AMH; Blood Gas Sample Site RV; Oxygen Device ROOM AIR
[2024-07-12 09:29] LABS: Arterial Blood Gas Hematocrit 37.5 % (37-47); Blood Gas Operator Identificat AMH; Blood Gas Sample Site PA; Blood Gas Sample Type Venous; Oxygen Device ROOM AIR; Total Hemoglobin 12.2 g/dL (12-16)
[2024-07-12 09:31] LABS: Arterial Blood Gas Hematocrit 36.9 % (37-47); Blood Gas Operator Identificat AMH; Blood Gas Sample Site RA; Blood Gas Sample Type Venous; HGB O2 Sat 76.5 % (95-100); Oxygen Device ROOM AIR
--- NOTE | 2024-07-12 10:01 | PC.NURSE ---
Dr. House notified of presence of hematoma, preesure held for 10 minutes and new pressure bandage applied by MERCY Damico.
[2024-07-12] MEDS: fentaNYL 50 mcg/mL INJ 2mL IVP (10:05)
--- NOTE | 2024-09-13 11:09 | P.PCN_ITS ---
Procedure Note: Date of procedure: 07/12/24 Pre-procedure diagnosis: Unexplained shortness of breath Procedure: Right heart catheterization Please note that because of technical Please note that because of technical error patient right heart catheterization was not crossing over into [facility] therefore we have to dictated into [employer] Pulmonary capillary wedge pressure: 22 mmHg PA mean 33 mmHg RV 46/12 mean of 18 mmHg RA 21/20 19 mmHg No significant stepup or intracardiac shunt noted Cardiac output 7.5 L/min Cardiac index 3.1 L/min/m? Post capillary mild pulmonary hypertension secondary to left side high pressures Coding Level of Care Code Acute Code for Chg Fwkanchan
== END 2024-07-12 11:06 | disposition home or self-care (01) ==
PROVIDERS: PCP Family Medicine; Visit Provider Internal Medicine Cardiovascular Disease
DX: I27.20 Pulmonary hypertension, unspecified (principal); J96.90 Respiratory failure, unspecified, unspecified whether with hypoxia or hypercapnia; M32.9 Systemic lupus erythematosus, unspecified; I11.0 Hypertensive heart disease with heart failure; I50.30 Unspecified diastolic (congestive) heart failure; E03.9 Hypothyroidism, unspecified; J44.9 Chronic obstructive pulmonary disease, unspecified; G47.33 Obstructive sleep apnea (adult) (pediatric); E78.2 Mixed hyperlipidemia; E11.9 Type 2 diabetes mellitus without complications; D64.9 Anemia, unspecified
CPT/HCPCS: 36415; 80048; 82810; 85025; 93451; 96365; 99152; C1751; C1769; C1894; J1644; J2250; J3010

== ENCOUNTER → 2024-07-17 10:33 | Outpatient (BNVA) | payer OTHER, SELFPAY | PROVIDERS: PCP Family Medicine; Visit Provider Orthopaedic Surgery | DX: M54.9 Dorsalgia, unspecified (principal) | CPT/HCPCS: 72100; 99024 ==

== ENCOUNTER 2024-07-27 08:45 | Outpatient (CLI) | payer OTHER, MEDICAID, SELFPAY ==
[2024-07-27 09:27] LABS: Basophils # 0.1 10^3/uL (0.0-0.1); Basophils % 0.9 %; Eosinophils # 0.1 10^3/uL (0.0-0.8); Eosinophils % 1.3 %; Hematocrit 36.3 % (36-47); Lymphocytes # 1.9 10^3/uL (0.8-4.8); Mean Corpuscular HGB Conc 32.8 g/dL (30-55); Mean Corpuscular Hemoglobin 27.7 pg (27-33); Mean Corpuscular Volume 84.6 fl (85-98); Mean Platelet Volume 10.1 fL (7.4-10.4); Monocytes # 0.6 10^3/uL (0.2-0.9); Monocytes % 6.4 %; Neutrophils # 6.56 10^3/uL (1.8-7.7); Neutrophils % 70.6 %; Nucleated Red Blood Cells % 0 %; Platelet Count 370 10^3/cmm (157-399); Red Blood Count 4.29 10^6/uL (3.85-5.65); Red Cell Distribution Width 14.8 % (12.1-15.1); White Blood Count 9.27 10^3/uL (3.29-11.43)
[2024-07-27 09:38] LABS: INR 0.97 (0.83-1.21); Prothrombin Time (Patient) 13.2 Seconds (12.0-15.1)
[2024-07-27 09:43] LABS: Anion Gap 15.2 (5-19); Blood Urea Nitrogen 12 mg/dL (6-20); Calcium 9.5 mg/dL (8.5-10.5); Carbon Dioxide 26 mmol/L (22-29); Chloride 96 mmol/L (98-107); Glomerular Filtration Rate 109.6 mL/min (90-130); Glucose 175 mg/dL (65-115); Osmolality Calculated 280 mOsm/kg (285-295); Potassium 4.2 mmol/L (3.5-5.1); Sodium 133 mmol/L (136-145)
== END 2024-07-27 08:46 | disposition home or self-care (01) ==
LOC: LAB 08:47
PROVIDERS: Internal Medicine Cardiovascular Disease; Absent Provider Internal Medicine; PCP Family Medicine; Visit Provider Internal Medicine Rheumatology
DX: R06.02 Shortness of breath (principal); E03.9 Hypothyroidism, unspecified
CPT/HCPCS: 80048; 85025; 85610

== ENCOUNTER 2024-08-01 10:20 | Outpatient (CLI) | payer OTHER, MEDICAID, SELFPAY ==
[2024-08-01 11:33] LABS: Estmated Average Glucose 194; Hemoglobin A1C 8.4 % (4.0-6.0)
[2024-08-01 11:39] LABS: Creatinine Urine, Random 45 mg/dL (28-217); Microalbum Creatinine Ratio Ur 22 mg/dL (0-20); Microalbumin Random Urine 1 ug/dL (0-20)
[2024-08-01 11:44] LABS: Alanine Aminotransferase 17 U/L (0-33); Albumin Level 4.4 g/dL (3.5-5.2); Alkaline Phosphatase 93 U/L (35-105); Anion Gap 15.1 (5-19); Aspartate Amino Transferase 16 U/L (0-32); Blood Urea Nitrogen 12 mg/dL (6-20); Calcium 9.2 mg/dL (8.5-10.5); Carbon Dioxide 28 mmol/L (22-29); Chloride 97 mmol/L (98-107); Chol HDL Ratio 2.71 mg/dL (0.0-4.40); Cholesterol 130 mg/dL (0-200); Free T4 Free Thyroxine 1.06 ng/dL (0.82-1.77); Globulin 2.8 g/dL (1.3-4.6); Glucose 189 mg/dL (65-115); HDL Cholesterol 48 mg/dL (60-100); LDL Cholesterol Calculated 22 mg/dL (50-129); LDL HDL Ratio 0.46 RATIO (0.00-3.22); Osmolality Calculated 287 mOsm/kg (285-295); Potassium 4.1 mmol/L (3.5-5.1); Sodium 136 mmol/L (136-145); Thyroid Stimulating Hormone 2.09 uIU/mL (0.27-4.20); Total Bilirubin 0.2 mg/dL (0.15-1.2); Total Protein 7.2 g/dL (6.6-8.7); Triglycerides 298 mg/dL (0-150)
== END 2024-08-01 10:21 | disposition home or self-care (01) ==
PROVIDERS: PCP Family Medicine; Visit Provider Internal Medicine
DX: E11.9 Type 2 diabetes mellitus without complications (principal); E89.0 Postprocedural hypothyroidism; Z09 Encounter for follow-up examination after completed treatment for conditions other than malignant neoplasm; R76.8 Other specified abnormal immunological findings in serum; L71.9 Rosacea, unspecified; J96.01 Acute respiratory failure with hypoxia; G47.33 Obstructive sleep apnea (adult) (pediatric); M32.9 Systemic lupus erythematosus, unspecified; L25.9 Unspecified contact dermatitis, unspecified cause; U07.0 Vaping-related disorder
CPT/HCPCS: 36415; 80053; 80061; 82044; 83036; 84439; 84443; 99214

== ENCOUNTER 2024-08-08 13:06 | Oncology outpatient (recurring) (ONCR) | payer OTHER, MEDICAID, SELFPAY ==
[2024-08-08 13:22] LABS: Basophils # 0.1 10^3/uL (0.0-0.1); Eosinophils # 0.1 10^3/uL (0.0-0.8); Eosinophils % 1.3 %; Hematocrit 37.2 % (36-47); Lymphocytes # 2.3 10^3/uL (0.8-4.8); Lymphocytes % 22.2 %; Mean Corpuscular HGB Conc 32.3 g/dL (30-55); Mean Corpuscular Hemoglobin 26.8 pg (27-33); Mean Corpuscular Volume 83.2 fl (85-98); Mean Platelet Volume 10.1 fL (7.4-10.4); Monocytes % 9.2 %; Neutrophils # 6.71 10^3/uL (1.8-7.7); Neutrophils % 64.9 %; Nucleated Red Blood Cells % 0 %; Platelet Count 379 10^3/cmm (157-399); Red Blood Count 4.47 10^6/uL (3.85-5.65); White Blood Count 10.32 10^3/uL (3.29-11.43)
[2024-08-08 14:06] LABS: Alanine Aminotransferase 22 U/L (0-33); Albumin Level 4.2 g/dL (3.5-5.2); Alkaline Phosphatase 90 U/L (35-105); Anion Gap 13.9 (5-19); Aspartate Amino Transferase 19 U/L (0-32); Blood Urea Nitrogen 11 mg/dL (6-20); Calcium 9.6 mg/dL (8.5-10.5); Carbon Dioxide 28 mmol/L (22-29); Chloride 95 mmol/L (98-107); Creatinine Clr Calc Pharmacy 265.7987; Globulin 3.3 g/dL (1.3-4.6); Glucose 177 mg/dL (65-115); Osmolality Calculated 280 mOsm/kg (285-295); Potassium 3.9 mmol/L (3.5-5.1); Sodium 133 mmol/L (136-145); Total Bilirubin 0.2 mg/dL (0.15-1.2); Total Protein 7.5 g/dL (6.6-8.7); Vitamin B12 393 pg/mL (232-1245)
[2024-08-11 17:09] LABS: Methylmalonic Acid 155 nmol/L (55-335)
== END 2024-08-28 23:59 | disposition home or self-care (01) ==
PROVIDERS: Nurse Practitioner Family; PCP Family Medicine; Visit Provider Internal Medicine Rheumatology
DX: M32.9 Systemic lupus erythematosus, unspecified (principal); E03.9 Hypothyroidism, unspecified; R30.0 Dysuria; Z79.899 Other long term (current) drug therapy
CPT/HCPCS: 36415; 80053; 82607; 83921; 85025; 96523; 99214

== ENCOUNTER → 2024-08-09 11:06 | Outpatient (BNVA) | payer OTHER, MEDICAID, SELFPAY | PROVIDERS: PCP Family Medicine; Visit Provider Orthopaedic Surgery | DX: Z98.1 Arthrodesis status (principal); M54.9 Dorsalgia, unspecified | CPT/HCPCS: 72100; 99024 ==

== ENCOUNTER → 2024-08-13 16:04 | Outpatient (BNVA) | payer OTHER, MEDICAID, SELFPAY | PROVIDERS: PCP Family Medicine; Visit Provider Family Medicine | DX: Z01.419 Encounter for gynecological examination (general) (routine) without abnormal findings | CPT/HCPCS: 87624 ==

== ENCOUNTER 2024-09-08 10:43 | Emergency (ER) | payer OTHER, MEDICAID, SELFPAY ==
--- NOTE | 2024-09-08 10:45 | XRR_ITS ---
PROCEDURE INFORMATION: Exam: XR Chest Exam date and time: 09/08/2024 11:13 AM Age: 44 years old Clinical indication: Patient HX: Cough; Fever; Congestion; HX chf, portal hypertension, oxygen dependent TECHNIQUE: Imaging protocol: Radiologic exam of the chest. Views: 1 view. COMPARISON: CT angio chest PE protcl [id number] 06/04/2024 10:30 AM FINDINGS: Lungs: Hypoinflation with slight elevation of the right hemidiaphragm. No consolidation. Pleural spaces: Unremarkable. No pleural effusion. No pneumothorax. Heart/Mediastinum: Unremarkable. No cardiomegaly. Bones/joints: Unremarkable. XR/XR chest 1V portable [id number] IMPRESSION: No acute findings.
[2024-09-08 11:04] VITALS: BP 147/84; PULSE 94; RESP 16; TEMP 36.6; O2SAT 96; BMI 52.9
[2024-09-08 13:53] VITALS: BP 154/94; PULSE 91; O2SAT 98
--- NOTE | 2024-09-08 14:18 | ED_ITS ---
HPI - URI/Sore Throat General: Chief Complaint: Upper Respiratory Infection Stated Complaint: conjestion Time Seen by Provider: 09/08/24 13:00 History of Present Illness: Yobani Padron is a 44-year-old female that presents to the emergency department with complaints of cough, congestion, body aches and ear pain. Patient has baseline CHF, COPD, pulmonary hypertension and is oxygen dependent. Patient reports her symptoms are precipitated by her son-in-law having COVID, her grandchild being ill, her developing symptoms 3 days ago. Her symptoms began last night. Patient reports she is also been traveling in the last week. She was up at [facility] for check in on her cardiopulmonary issues. Patient's medical history includes the following: COPD, CHF, pulmonary hypertension, hyperlipidemia, hypertension, diabetes, PTSD. Related Data Home Medications Medication Instructions Recorded Confirmed diphenhydramine HCl 25 mg tablet 25 - 50 mg PO PRN 04/08/20 08/13/24 (Benadryl Allergy) ziprasidone HCl 80 mg capsule 80 mg PO BID 08/24/22 08/13/24 oxcarbazepine 600 mg tablet 600 mg PO BID 07/13/23 08/13/24 (Trileptal) buspirone 30 mg tablet 30 mg PO BID 08/26/23 08/13/24 clonazepam 1 mg tablet 1 mg PO BEDTIME Anxiety 04/11/24 08/13/24 dextroamphetamine-amphetamine ER 1 cap PO QAM 04/11/24 08/13/24 30 mg 24hr capsule,extend release trazodone 100 mg tablet 200 mg PO BEDTIME 04/11/24 08/13/24 vilazodone 10 mg tablet 10 mg PO QAM 04/11/24 08/13/24 insulin glargine 100 unit/mL (3 60 unit SUBCUT QPM 05/22/24 08/13/24 mL) subcutaneous pen (Lantus Solostar U-100 Insulin) pantoprazole 40 mg tablet,delayed 40 mg PO BID 06/04/24 08/13/24 release rituximab-abbs 10 mg/mL 1,000 mg IV .[id number] 06/04/24 08/13/24 intravenous solution Previous Rx's Medication Instructions Recorded albuterol sulfate 90 mcg/actuation 2 puff inhalation Q4H PRN 09/20/22 aerosol inhaler (Ventolin HFA) Shortness Of Breath #8.5 grams insulin syringes (disposable) 1 mL #25 ea 04/18/23 epinephrine 0.3 mg/0.3 mL 0.3 mg (0.3 mL) IM Q15M PRN 12/23/23 injection, auto-injector (EpiPen anaphylaxis #2 ea 2-Edward) blood-glucose meter,continuous #1 ea 05/01/24 (Dexcom G7 Power Transformer Repair Supervisor) blood-glucose sensor (Dexcom G7 #3 ea 05/01/24 Sensor device) semaglutide 2 mg/dose (8 mg/3 mL) 2 mg (0.75 mL) SUBCUT Q7D #3 mL 05/01/24 subcutaneous pen injector (Ozempic) Bone Growth Stimulator #1 ea 05/02/24 levothyroxine 25 mcg tablet 25 mcg PO DAILY #60 tabs 05/21/24 dapagliflozin propanediol 10 mg 10 mg PO DAILY #90 tabs 06/23/24 tablet (Farxiga) albuterol sulfate 2.5 mg/3 mL 2.5 mg (3 mL) inhalation Q4H PRN 06/25/24 (0.083 %) solution for nebulization Shortness Of Breath #90 mL lisinopril 40 mg tablet 40 mg PO BEDTIME #90 tabs 06/25/24 isosorbide mononitrate 30 mg 30 mg PO DAILY #90 tabs 06/26/24 tablet,extended release 24 hr valacyclovir 1 gram tablet 1,000 mg PO TID #21 tabs 07/08/24 (Valtrex) azathioprine 50 mg tablet 100 mg (2 x 50 mg) PO BID #120 tabs 08/01/24 hydroxychloroquine 200 mg tablet 200 mg PO BID #180 tabs 08/01/24 insulin aspart U-100 100 unit/mL 5 unit (0.05 mL) SUBCUT TID #15 mL 08/03/24 (3 mL) subcutaneous pen (Novolog FlexPen U-100 Insulin aspart) atorvastatin 20 mg tablet 20 mg PO DAILY #90 tabs 08/06/24 montelukast 10 mg tablet 10 mg PO DAILY #90 tabs 08/06/24 (Singulair) furosemide 40 mg tablet (Lasix) 40 mg PO DAILY #90 tabs 08/08/24 oxycodone-acetaminophen 10 mg-325 1 tab PO Q4H PRN pain 30 days #180 08/09/24 mg tablet tabs fluticasone fur. 100 mcg-umeclid 1 inh inhalation DAILY #60 ea 08/13/24 62.5 mcg-vilant 25 mcg inhalat.powder (Trelegy Ellipta) ferrous sulfate 325 mg (65 mg 325 mg PO BID #60 tabs 08/31/24 iron) tablet,delayed release ondansetron 4 mg disintegrating 4 mg PO 3XD PRN n/v #60 tabs 08/31/24 tablet gabapentin 600 mg tablet See Rx Instructions .Route 09/03/24 .COMPLEX #180 tabs levothyroxine 200 mcg tablet See Rx Instructions .Route 09/03/24 .COMPLEX #90 tabs Allergies Allergy/AdvReac Type Severity Reaction Status Date / Time anifrolumab-fnia Allergy Severe hives Verified 08/13/24 14:47 [From Saphnelo] amoxicillin Allergy ALGY-Rash Verified 08/13/24 14:47 bee venom protein (honey bee) Allergy ALGY-Anaphy Verified 08/13/24 14:47 laxis cinnamon Allergy anaphylacti Verified 08/13/24 14:47 c desvenlafaxine [From Pristiq] Allergy Unknown Verified 08/13/24 14:47 fluoxetine [From Prozac] Allergy Unknown Verified 08/13/24 14:47 Latex, Natural Rubber Allergy ALGY-Rash Verified 08/13/24 14:47 oxytocin [From Pitocin] Allergy ADR-Itching Verified 08/13/24 14:47 Penicillins Allergy ALGY-Hives Verified 08/13/24 14:47 Sulfa (Sulfonamide Allergy ALGY-Rash Verified 08/13/24 14:47 Antibiotics) leflunomide AdvReac Intermediate gastric Verified 08/13/24 14:47 Review of Systems General: Reports: 10 or more systems reviewed and unremarkable except in HPI and below PFSH ED PFSH: Medical History Heart failure with preserved ejection fraction History of echocardiogram 03/2024 EF 60%, Grade I/IV, normal PAP, no LVH, RAP 5mmHg OCD (obsessive compulsive disorder) Hernia of fascia Abnormal mammogram of right breast Hyponatremia chronic, may be related to some medications, which are being adjusted by primary prescribers Hypertension Syncope ADHD Generalized anxiety disorder Fatty liver Fatigue B12 deficiency Lung injury associated with vaping Contact dermatitis SLE (systemic lupus erythematosus related syndrome) Hypothyroidism COPD (chronic obstructive pulmonary disease) Leukocytosis chronic Rosacea Positive double stranded DNA antibody test Labral tear of left hip joint KI (obstructive sleep apnea) Morbid obesity Bipolar 1 disorder PTSD (post-traumatic stress disorder) Chronic urticaria Insomnia Mild intermittent asthma Allergic rhinitis GERD (gastroesophageal reflux disease) Shingles 4th occurrence Hyperlipemia, mixed Helicobacter pylori gastritis Mandibular fracture Diabetes mellitus Type 2 Depression Surgical History History of left hip replacement History of cardiac catheterization 04/12/2024 Dr House: No disease noted in the Left Main, Left Anterior Descending, Right, or Circumflex coronary arteries. History of ankle surgery (02/08/24) By Dr Murphy: Left modified Brostr?m with internal brace, repair left peroneus brevis tendon split tear and peroneus longus tenosynovectomy, topaz achilles tendon with PRP injection Status post lumbar spinal fusion (05/23/24) Dr Han, L4-5 History of mandibular surgery For mandibular fracture H/O esophagogastroduodenoscopy (09/02/21) H/O thyroidectomy done due to multinodular goiter S/P cholecystectomy S/P tonsillectomy and adenoidectomy S/P breast lumpectomy Right breast lumpectomy for benign disease Previous section Family History Father Hypertension Cancer testicular Cardiac abnormality Mother Congestive heart failure (CHF) COPD (chronic obstructive pulmonary disease) Diabetes Cancer ovarian and uterine Family/Other Cancer Maternal aunt- HR2 breast Other CAD (coronary artery disease) Family history of premature coronary artery disease Hyperlipidemia Lung disease Psychiatric illness Rheumatoid arthritis Stroke Denies family history of Lupus Clotting disorder Dementia Chronic kidney disease (CKD) Anesthesia complication Bleeding disorder Social History Smoking and tobacco/nicotine status: current every day tobacco/nicotine user (vapes) e-cigarettes Quit status (tobacco/nicotine): has quit using Year quit tobacco: July Former quit date comment: Hx of 2 ppd X 25 years, started at age 16 yr. Alcohol intake: former Substance/Drug Use: never Adopted: No Caregiver/support person: No Lives independently: Yes Household members: spouse and family Housing: House Marital status: Marital status details: 26 years in 2023 Number of children: 2 Number of grandchildren: 1 Highest education level completed: Some College, No Degree service: No Current occupational status: employed Current occupation: [employer] Sexually active: Yes Do you think of yourself as: Straight/Heterosexual Current gender identity: Female Balbina/Confucianist: Episcopal Special balbina needs: No Agree to transfusion: Yes Physical Exam Const: COMMON NORMALS: no acute distress, patient oriented x3 and alert GENERAL APPEARANCE: cooperative ORIENTATION/CONSCIOUSNESS: Yes awake, Yes oriented to person, Yes oriented to place and Yes oriented to time HENMT: COMMON NORMALS: normocephalic and atraumatic HEAD & SCALP: normocephalic and atraumatic FACE & SINUS: normal facial exam MOUTH: Normal oral and palatal mucosa present THROAT: posterior oropharynx normal Eye: COMMON NORMALS: Equal, round and reactive pupils present, EOMs intact bilaterally, conjunctivae normal and no scleral icterus GENERAL EYE: appearance normal, both eyes and all related structures ALIGNMENT: Yes alignment normal PERIORBITAL: periorbital findings normal CONJUNCTIVA: Yes conjunctivae normal PUPIL: Yes Equal, round and reactive pupils present Neck/C-Spine: COMMON NORMALS: full ROM GENERAL: Yes normal visual inspection Lymph: LYMPHATIC: no lymphadenopathy noted Chest: COMMONS NORMALS: normal inspection of the chest Breast/axilla inspection: Yes no chest deformity, asymmetry, normal contours, no nodules, masses, tenderness Resp: COMMON NORMALS: normal respiratory effort, No retractions, No use of accessory muscles and clear to auscultation bilaterally EFFORT & INSPECTION: Yes able to speak in complete sentences and Yes symmetric chest movement AUSCULTATION: clear to auscultation bilaterally Cardio: COMMON NORMALS: regular rate, regular rhythm and Peripheral pulses 2+ throughout RATE: regular rate RHYTHM: regular rhythm PERIPHERAL PULSES: Peripheral pulses 2+ throughout GI: COMMON NORMALS: Normal to inspection, nondistended, normoactive bowel sounds present, Soft to palpation, non-tender and No hepatosplenomegaly present INSPECTION: Yes normal to inspection AUSCULTATION: Yes normoactive bowel sounds PALPATION: Yes Soft to palpation and Yes No hepatosplenomegaly present RECTAL EXAM: deferred Extremity: COMMON NORMALS: normal to inspection GENERAL: Yes normal exam except as noted Neuro: COMMON NORMALS: patient oriented x3 SENSORIUM/ORIENTATION: Yes alert, Yes oriented to person, Yes oriented to place and Yes oriented to time CRANIAL NERVES: Yes CN normal except as noted Psych: COMMON NORMALS: mental status grossly normal, Normal thought process present, cooperative, activity/motor behavior normal, denies homicidal ideation and denies suicidal ideation THOUGHT PROCESS: Normal thought process present Skin: COMMON NORMALS: no rashes or lesions noted, no wounds and turgor normal GENERAL SKIN EXAM: no rashes or lesions noted and turgor normal Course Vital Signs: Vital signs: Vital Signs Temperature 97.9 F 09/08/24 11:04 Pulse Rate 91 09/08/24 13:53 Respiratory Rate 16 09/08/24 11:04 Blood Pressure 154/94 09/08/24 13:53 Pulse Oximetry 98 09/08/24 13:53 Oxygen Delivery Me thod Nasal Cannula 09/08/24 13:53 Oxygen Flow Rate 3 09/08/24 13:53 MDM - URI/Sore Throat Medical Decision Making Patient presents to the emergency department with complaints of congestion, cough body aches and ear pressure. Patient underwent evaluation that included x-ray, physical exam, respiratory panel. Physical exam reveals clear breath sounds throughout. No edema or exudates no oropharyngeal. Tympanic membranes reveal effusion but no infection. Chest x-ra y reveals no pneumonia or other cardiopulmonary abnormality. Respiratory panel negative for many of the common respiratory viruses. Patient is nontoxic-appearing. She obviously has a viral URI. She does have a pulse oximeter at home and is on 3 L by nasal cannula. Needs to continue with her home oxygen and monitor oxygen saturation throughout the day. She needs to focus on pulmonary toileting to ensure that she does not develop a pneumonia. If her respiratory status changes/worsens, she needs to be evaluated either by her primary care, urgent care or here in the emergency department. Patient is agreeable I have advised her to drink plenty of fluid, get plenty of rest, good nutritional diet. Most respiratory viruses will resolve in the next 10 to 12 days. He may use [id number] remedies for symptom management. He needs to choose wisely as she is treated for hypertension. Phenylephrine can be used to help with congestion when patients are being treated for hypertension. SHe needs to watch for the HBP label uncommon [id number] remedies. Lab Data Radiology Impressions Chest X-Ray 09/08/24 10:45 IMPRESSION: No acute findings. Laboratory Results Adenovirus (PCR) Not detected (NOT DETECT) 09/08/24 12:44 C. pneumoniae DNA (PCR) Not detected (NOT DETECT) 09/08/24 12:44 Coronavirus 229E (PCR) Not detected (NOT DETECT) 09/08/24 12:44 Human Metapneumovir PCR Not detected (NOT DETECT) 09/08/24 12:44 Influenza A (H1) PCR Not detected (NOT DETECT) 09/08/24 12:44 Influ A (H1/09) PCR Not detected (NOT DETECT) 09/08/24 12:44 Influenza A (H3) PCR Not detected (NOT DETECT) 09/08/24 12:44 Influenza Type A (PCR) Not detected (NOT DETECT) 09/08/24 12:44 Influenza Type B (PCR) Not detected (NOT DETECT) 09/08/24 12:44 M. pneumoniae (PCR) Not detected (NOT DETECT) 09/08/24 12:44 Parainfluenza 1 (PCR) Not detected (NOT DETECT) 09/08/24 12:44 Parainfluenza 2 (PCR) Not detected (NOT DETECT) 09/08/24 12:44 Parainfluenza 3 (PCR) Not detected (NOT DETECT) 09/08/24 12:44 Parainfluenza 4 (PCR) Not detected (NOT DETECT) 09/08/24 12:44 RSV Type A (PCR) Not detected (NOT DETECT) 09/08/24 12:44 RSV Type B (PCR) Not detected (NOT DETECT) 09/08/24 12:44 Entero/Rhino (PCR) Not detected (NOT DETECT) 09/08/24 12:44 SARS-CoV-2 (PCR) Not detected (NOT DETECT) 09/08/24 12:44 All radiology interpretation(s) finalized by discharge Discharge Plan Discharge Patient Disposition: Home Clinical Impression: Viral infection, Oxygen dependent Condition: Stable Prescriptions: No Action trazodone 100 mg tablet 200 mg PO BEDTIME epinephrine [EpiPen 2-Edward] 0.3 mg/0.3 mL auto-injector 0.3 mg IM Q15M PRN (Reason: anaphylaxis) Qty: 2 0RF Rx Instructions: for 2 doses (DME) Dexcom G7 Sensor Device See Rx Instructions .Route Qty: 3 3RF Rx Instructions: As directed (DME) Dexcom G7 Power Transformer Repair Supervisor Misc See Rx Instructions .Route Qty: 1 0RF Rx Instructions: As directed Ozempic 2 mg/dose (8 mg/3 mL) pen injector 2 mg SUBCUT Q7D Qty: 3 3RF Rx Instructions: inject 1 pen ;sq; once weekly azathioprine 50 mg tablet 100 mg PO BID Qty: 120 5RF hydroxychloroquine 200 mg tablet 200 mg PO BID Qty: 180 1RF isosorbide mononitrate 30 mg tablet extended release 24 hr 30 mg PO DAILY Qty: 90 3RF Trelegy Ellipta 100-62.5-25 mcg blister with device 1 inh inhalation DAILY Qty: 60 3RF valacyclovir [Valtrex] 1 gram tablet 1,000 mg PO TID Qty: 21 0RF oxycodone-acetaminophen 10-325 mg tablet 1 tab PO Q4H MDD 6 PRN (Reason: pain) 30 Days Qty: 180 0RF albuterol sulfate [Ventolin HFA] 90 mcg/actuation HFA aerosol inhaler 2 puff INHALATION Q4H PRN (Reason: Shortness Of Breath) Qty: 8.5 3RF (DME) insulin syringes (disposable) 1 mL syringe See Rx Instructions .ROUTE .MEDSUPPLY Qty: 25 1RF Rx Instructions: As directed oxcarbazepine [Trileptal] 600 mg tablet 600 mg PO BID Rx Instructions: take 1 tablet by mouth in the am, then 1 tablet at bedtime levothyroxine 25 mcg tablet 25 mcg PO DAILY Qty: 60 3RF Rx Instructions: take 25mcg with [id number] daily dapagliflozin propanediol [Farxiga] 10 mg tablet 10 mg PO DAILY Qty: 90 0RF (DME) Bone Growth Stimulator See Rx Instructions .Route .MEDSUPPLY Qty: 1 0RF Rx Instructions: As directed albuterol sulfate 2.5 mg /3 mL (0.083 %) solution for nebulization 2.5 mg inhalation Q4H PRN (Reason: Shortness Of Breath) Qty: 90 3RF lisinopril 40 mg tablet 40 mg PO BEDTIME Qty: 90 2RF insulin aspart U-100 [Novolog FlexPen U-100 Insulin] 100 unit/mL (3 mL) insulin pen 5 unit SUBCUT TID Qty: 15 1RF Rx Instructions: take before meals atorvastatin 20 mg tablet 20 mg PO DAILY Qty: 90 0RF montelukast [Singulair] 10 mg tablet 10 mg PO DAILY Qty: 90 0RF furosemide [Lasix] 40 mg tablet 40 mg PO DAILY Qty: 90 0RF ondansetron 4 mg tablet,disintegrating 4 mg PO 3XD PRN (Reason: n/v) Qty: 60 0RF Rx Instructions: DISSOLVE ONE TABLET BY MOUTH EVERY 6 HOURS NEEDED FOR NAUSEA AND VOMITING ferrous sulfate 325 mg (65 mg iron) tablet,delayed release (DR/EC) 325 mg PO BID Qty: 60 0RF levothyroxine 200 mcg tablet See Rx Instructions .ROUTE .COMPLEX Qty: 90 0RF Dose Instruction: TAKE 1 TABLET BY MOUTH EVERY DAY Rx Instructions: TAKE 1 TABLET BY MOUTH EVERY DAY gabapentin 600 mg tablet See Rx Instructions .ROUTE .COMPLEX Qty: 180 1RF Dose Instruction: TAKE 1 TABLET BY MOUTH THREE TIMES DAILY Rx Instructions: TAKE 1 TABLET BY MOUTH THREE TIMES DAILY diphenhydramine HCl [Benadryl Allergy] 25 mg Tablet 25 - 50 mg PO PRN insulin glargine [Lantus Solostar U-100 Insulin] 100 unit/mL (3 mL) insulin pen 60 unit SUBCUT QPM pantoprazole 40 mg Tablet,Delayed Release (Dr/Ec) 40 mg PO BID rituximab-abbs 10 mg/mL Solution 1,000 mg IV .[id number] ziprasidone HCl 80 mg Capsule 80 mg PO BID buspirone 30 mg tablet 30 mg PO BID clonazepam 1 mg tablet 1 mg PO BEDTIME dextroamphetamine-amphetamine 30 mg capsule,extended release 24hr 1 cap PO QAM vilazodone 10 mg tablet 10 mg PO QAM Discharge Orders: Discharge ED (Routine); Ordered 09/08/24 Ordered By: Kulwant Mcdonald [facility] [place] Elan Kuhn MD [Primary Care Provider] - Patient Instructions: Upper Respiratory Infection (ED), Pain Management Activity Restrictions/Additional Instructions: Please monitor your symptoms closely. If your oxygen saturation starts to fall or if her cough worsens or shortness of breath worsens, you need to be reevaluated. This can be done by your primary care, in the urgent care or here in the emergency department. Use decongestants that are appropriate for persons with high blood pressure. Look for the label with the heart and HBP Drink plenty of fluids Get plenty of rest, make sure you have good nutritious diet. Focus on pulmonary toileting to help prevent pneumonia. Coding Level of Care Code ED Family Dentist for Chao Monsalve
[2024-09-08 14:56] LABS: Adenovirus Not Detected (NOT DETECT); Chlamydia Pneumoniae Not Detected (NOT DETECT); Coronavirus 229E,HKU1,NL63,OC4 Not Detected (NOT DETECT); Human Metapneumovirus Not Detected (NOT DETECT); Human Rhinovirus/Enterovirus Not Detected (NOT DETECT); Influenza A Not Detected (NOT DETECT); Influenza A H1 Not Detected (NOT DETECT); Influenza A H1-2009 Not Detected (NOT DETECT); Influenza A H3 Not Detected (NOT DETECT); Influenza B Not Detected (NOT DETECT); Mycoplasma Pneumoniae Not Detected (NOT DETECT); Parainfluenza Virus Type 1 Not Detected (NOT DETECT); Parainfluenza Virus Type 2 Not Detected (NOT DETECT); Parainfluenza Virus Type 3 Not Detected (NOT DETECT); Parainfluenza Virus Type 4 Not Detected (NOT DETECT); Respiratory Syncytial Virus A Not Detected (NOT DETECT); Respiratory Syncytial Virus B Not Detected (NOT DETECT); SARS-COV-2 Not Detected (NOT DETECT)
[2024-09-08 15:47] VITALS: BP 123/77; PULSE 88; O2SAT 95
[2024-09-08 15:51] VITALS: BP 123/77; PULSE 88; O2SAT 94
== END 2024-09-08 15:53 | disposition home or self-care (01) ==
PROVIDERS: Emergency Medicine; Emergency Provider Nurse Practitioner; PCP Family Medicine
DX: B34.9 Viral infection, unspecified (principal); Z99.81 Dependence on supplemental oxygen; Z79.4 Long term (current) use of insulin; Z11.52 Encounter for screening for COVID-19; F17.290 Nicotine dependence, other tobacco product, uncomplicated; J44.9 Chronic obstructive pulmonary disease, unspecified; E11.9 Type 2 diabetes mellitus without complications; I11.0 Hypertensive heart disease with heart failure; I50.30 Unspecified diastolic (congestive) heart failure
CPT/HCPCS: 71045; 87486; 87581; 87633; 99283

== ENCOUNTER 2024-09-13 10:00 | Oncology outpatient (recurring) (ONCR) | payer OTHER, MEDICAID, SELFPAY ==
--- NOTE | 2024-09-13 10:00 | CT_ITS ---
WS: [id number] CT LUMBAR SPINE, noncontrast. HISTORY: back pain, recent posterior fusion surgery. TECHNIQUE: Contiguous 2.0 mm axial imaging are performed. Sagittal and coronal reformats are submitte d and reviewed. All CT scans at [facility] use at least one of these dose optimization techni ques: automated exposure control; mA and/or kV adjustment per patient size (includes targeted exams w here dose is matched to clinical indication); or iterative reconstruction. IV contrast: None DLP: 1905.97 mGy.cm COMPARISON: 04/29/2014, MRI 03/13/2024 New since the prior MRI examination patient has undergone posterior fusion at L4-5 with interbody spa cer. Lumbar alignment appears appropriate. Spacer is maintaining the disc base. No lucency surroundin g the pedicle screws. There is mild widening of the facet joints, greatest involving the RIGHT L4-5 f acet joint. Large hemilaminectomy defect at L4-5 and L5-S1. Postsurgical changes are noted in the par avertebral soft tissues. There are no pockets of air. L1-2: Normal. L2-3: Normal. L3-4: Mild annular disc bulging with mild facet arthritis. No disc protrusions or significant stenosi s. Mild foraminal narrowing. Very mild widening of the facet joints. L4-5: Slight annular disc bulging. No significant foraminal cyst stenosis. There is very slight asymm etric narrowing of the foramen with the RIGHT narrowing greater than the LEFT. L5-S1: Mild annular disc bulging large posterior laminectomy defect. Mild bilateral foraminal narrowi ng, RIGHT greater than LEFT. Scattered atherosclerotic plaque within the abdominal aorta extending into the iliac arteries. Air in the SI joints. CT/CT lumbar spine wo con* [id number] IMPRESSION: 1. Interval posterior lumbar fusion at L4-5 with interbody spacer. Hardware ap pears intact. No lucency surrounding the pedicle screws. Disc space is well pre served. 2. Large posterior laminectomy defects at L4-5 and L5-S1 with postoperative ch anges. 3. Mild asymmetric widening of the RIGHT L4-5 facet joint. 4. Mild foraminal narrowing at L3-4, L4-5 and L5-S1.
[2024-09-13 10:59] LABS: Anion Gap 18.9 (5-19); Blood Urea Nitrogen 13 mg/dL (6-20); Calcium 9.3 mg/dL (8.5-10.5); Carbon Dioxide 22 mmol/L (22-29); Chloride 93 mmol/L (98-107); Glomerular Filtration Rate 135.3 mL/min (90-130); Glucose 166 mg/dL (65-115); Osmolality Calculated 272 mOsm/kg (285-295); Potassium 4.9 mmol/L (3.5-5.1); Sodium 129 mmol/L (136-145)
== END 2024-09-28 23:59 | disposition home or self-care (01) ==
LOC: ONCMED 10:03 → RAD 10:04 → ONCMED 09-14 08:14
PROVIDERS: PCP Family Medicine; Visit Provider Orthopaedic Surgery
DX: Z53.9 Procedure and treatment not carried out, unspecified reason (principal); M48.061 Spinal stenosis, lumbar region without neurogenic claudication; Z98.1 Arthrodesis status; I11.0 Hypertensive heart disease with heart failure; I50.32 Chronic diastolic (congestive) heart failure
CPT/HCPCS: 72131; 80048; 99214

== ENCOUNTER 2024-09-17 14:41 | Emergency (ER) | payer OTHER, MEDICAID, SELFPAY ==
[2024-09-17 14:51] VITALS: BP 129/70; PULSE 82; RESP 18; TEMP 36.7; O2SAT 96; BMI 52.8
--- NOTE | 2024-09-17 15:01 | ECG_ITS ---
[facility] 2024-[facility]17 Pat Name: Lori Padron Department: Room: Gender: Female Services Clerk: : 1980 Requested By: David Maya Order Number: [id number] Reading MD: VALERIE LITTLE Measurements Intervals Tuttle Rate: 79 P: 20 SC: 204 QRS: 23 QRSD: 86 T: 41 QT: 383 QTc: 439 Interpretive Statements SINUS RHYTHM LOW QRS VOLTAGE IN PRECORDIAL LEADS [QRS DEFLECTION < 1.0 mV IN CHEST LEADS] POSSIBLE ANTERIOR MYOCARDIAL INFARCTION , PROBABLY OLD [30 ms Q WAVE IN V3/V4, OR R < 0.2 mV IN V4] Compared to ECG 06/04/2024 15:36:19 Low QRS voltage now present Myocardial infarct finding now present Electronically Signed On 09-17-2024 23:11:18 SET KEY DRIVER by VALERIE LITTLE [id number]
== END 2024-09-17 16:24 | disposition left against medical advice (07) ==
PROVIDERS: Emergency Provider Family Medicine; PCP Family Medicine
DX: Z53.21 Procedure and treatment not carried out due to patient leaving prior to being seen by health care provider (principal)
CPT/HCPCS: 93005

== ENCOUNTER 2024-09-19 08:00 | Outpatient (CLI) | payer OTHER, MEDICAID, SELFPAY ==
--- NOTE | 2024-09-19 08:00 | MR_ITS ---
WS: [id number] MRI LUMBAR SPINE WITH CONTRAST TECHNIQUE: Sagittal T1, T2 and STIR imaging. Axial T1 and T2 imaging. Post gadolinium imaging was obt ained. CLINICAL INFORMATION: lumbar pain radiating to both legs COMPARISON: MRI 03/13/2024 FINDINGS: Mild lumbar curve. No acute compression. Pedicle screw fixation L4-5 with interbody fusion. Decompres sive laminectomy defects with subcutaneous fluid collection most compatible with seroma in the dorsal surgical tract. This demonstrates a few septations and measures approximately 7.7 x 3.5 x 2.7 cm L1-L2: Mild facet arthropathy. L2-L3: Mild annular bulging. Mild facet arthropathy. L3-L4: Mild annular bulging. Mild facet arthropathy. Tiny RIGHT foraminal protrusion with mild RIGHT foraminal narrowing. LEFT foramen is patent. L4-L5: Pedicle screw fixation with interbody fusion. Spinal canal is patent. Mild LEFT foraminal narr owing. Laminectomy defects. L5-S1: Mild annular bulging. Pedicle screw fixation. Mild RIGHT foraminal narrowing. LEFT foramen is patent. Minimal narrowing of the RIGHT subarticular recess. Visualized pelvic bony structures: Normal. Paravertebral soft tissues: Normal. MR/MR lumbar spine wo/w con [id number] IMPRESSION: 1. Postoperative changes are new compared to previous with pedicle screw fixat ion L4-5 with interbody fusion. 2. Peripherally enhancing fluid collection along the surgical tract in the sub cutaneous soft tissues most likely postoperative seroma described above. Recomm end correlation for overlying drainage or cellulitis. 3. Normal postoperative enhancement. 4. Tiny RIGHT foraminal protrusion L3-4 with mild RIGHT foraminal narrowing. 5. Mild LEFT L4-5 and RIGHT L5-S1 foraminal narrowing.
[2024-09-19] MEDS: gadobenate dimeglumine 20 mL vial IV (08:59)
== END 2024-09-19 08:02 | disposition home or self-care (01) ==
PROVIDERS: PCP Family Medicine; Visit Provider Orthopaedic Surgery
DX: M47.896 Other spondylosis, lumbar region (principal); M43.8X6 Other specified deforming dorsopathies, lumbar region; Z98.1 Arthrodesis status; M96.89 Other intraoperative and postprocedural complications and disorders of the musculoskeletal system; M51.369 Other intervertebral disc degeneration, lumbar region without mention of lumbar back pain or lower extremity pain; M48.061 Spinal stenosis, lumbar region without neurogenic claudication
CPT/HCPCS: 72158

== ENCOUNTER → 2024-09-20 08:11 | Outpatient (BNVA) | payer OTHER, MEDICAID, SELFPAY | PROVIDERS: PCP Family Medicine; Visit Provider Orthopaedic Surgery | DX: Z98.1 Arthrodesis status (principal) | CPT/HCPCS: 72100; 99024 ==

== ENCOUNTER → 2024-10-09 12:58 | Outpatient (BNVA) | payer OTHER, MEDICAID, SELFPAY | PROVIDERS: PCP Family Medicine; Visit Provider Podiatrist Foot & Ankle Surgery | DX: M76.72 Peroneal tendinitis, left leg (principal); L60.0 Ingrowing nail | CPT/HCPCS: 99213 ==

== ENCOUNTER 2024-10-22 08:02 | Oncology outpatient (recurring) (ONCR) | payer OTHER, MEDICAID, SELFPAY ==
[2024-10-22] MEDS: sodium chloride 0.9% 250 ML 75 ML IV (09:10)
[2024-10-22] MEDS: acetaminophen 325 mg Tablet 650 MG PO (09:11)
[2024-10-22] MEDS: methylPREDNISolone sod succ 125 mg/2 mL INJ IVP (09:12)
[2024-10-22] MEDS: diphenhydrAMINE 50 mg/mL SDV 1mL IVP (09:12)
[2024-10-22 09:15] LABS: Basophils # 0.1 10^3/uL (0.0-0.1); Basophils % 1.2 %; Eosinophils # 0.1 10^3/uL (0.0-0.8); Eosinophils % 1.2 %; Hematocrit 36.8 % (36-47); Lymphocytes # 1.5 10^3/uL (0.8-4.8); Mean Corpuscular HGB Conc 32.9 g/dL (30-55); Mean Corpuscular Hemoglobin 27.6 pg (27-33); Mean Platelet Volume 10.1 fL (7.4-10.4); Monocytes # 0.6 10^3/uL (0.2-0.9); Monocytes % 6.8 %; Neutrophils # 6.97 10^3/uL (1.8-7.7); Neutrophils % 74.1 %; Nucleated Red Blood Cells % 0 %; Platelet Count 327 10^3/cmm (157-399); Red Blood Count 4.38 10^6/uL (3.85-5.65); Red Cell Distribution Width 13.6 % (12.1-15.1); White Blood Count 9.41 10^3/uL (3.29-11.43)
[2024-10-22 09:31] LABS: Alanine Aminotransferase 21 U/L (0-33); Albumin Level 4.3 g/dL (3.5-5.2); Alkaline Phosphatase 95 U/L (35-105); Aspartate Amino Transferase 20 U/L (0-32); Blood Urea Nitrogen 7 mg/dL (6-20); C Reactive Protein 8.4 mg/L (0.0-4.9); Calcium 8.8 mg/dL (8.5-10.5); Carbon Dioxide 25 mmol/L (22-29); Chloride 100 mmol/L (98-107); Globulin 2.6 g/dL (1.3-4.6); Glucose 240 mg/dL (65-115); Osmolality Calculated 290 mOsm/kg (285-295); Sodium 137 mmol/L (136-145); Total Bilirubin 0.2 mg/dL (0.15-1.2); Total Protein 6.9 g/dL (6.6-8.7)
[2024-10-22 09:33] LABS: Erythrocyte Sedimentation Rate 24 mm/hr (0-15)
[2024-10-22] MEDS: rituximab-abbs 1,000 MG in sodium chloride 0.9% 500 ML 65 MG IV (09:50)
[2024-10-22 09:55] VITALS: BP 149/76; PULSE 84; RESP 17; TEMP 36.7; O2SAT 94
[2024-10-22 10:25] VITALS: BP 120/70; PULSE 75; RESP 17; TEMP 36.8; O2SAT 90
[2024-10-22 10:55] VITALS: BP 137/73; PULSE 84; RESP 17; TEMP 36.6; O2SAT 93
[2024-10-22 11:25] VITALS: BP 148/68; PULSE 82; RESP 16; TEMP 36.6; O2SAT 93
[2024-10-22 13:30] VITALS: BP 120/72; PULSE 91; RESP 16; TEMP 36.6; O2SAT 93
== END 2024-10-22 23:59 | disposition home or self-care (01) ==
PROVIDERS: Internal Medicine Rheumatology; PCP Family Medicine; Visit Provider Orthopaedic Surgery
DX: M32.9 Systemic lupus erythematosus, unspecified (principal); Z79.899 Other long term (current) drug therapy
CPT/HCPCS: 80048; 80076; 85025; 85651; 86140; 96375; 96413; 96415; J1200; J2919; J7040; J7050; Q5115

== ENCOUNTER → 2024-10-23 09:28 | Outpatient (BNVA) | payer OTHER, MEDICAID, SELFPAY | PROVIDERS: PCP Family Medicine; Referring Provider Psychiatry & Neurology Neurology; Visit Provider Psychiatry & Neurology Neurology | DX: R56.9 Unspecified convulsions (principal); R40.4 Transient alteration of awareness | CPT/HCPCS: 95819 ==

== ENCOUNTER → 2024-10-24 10:44 | Outpatient (BNVA) | payer OTHER, MEDICAID, SELFPAY | PROVIDERS: PCP Family Medicine; Visit Provider Surgery | DX: Z95.828 Presence of other vascular implants and grafts (principal) | CPT/HCPCS: 99204 ==

== ENCOUNTER → 2024-10-25 09:35 | Outpatient (BNVA) | payer OTHER, MEDICAID, SELFPAY | PROVIDERS: PCP Family Medicine; Visit Provider Internal Medicine | DX: E89.0 Postprocedural hypothyroidism (principal); E53.8 Deficiency of other specified B group vitamins; Z79.4 Long term (current) use of insulin; E11.42 Type 2 diabetes mellitus with diabetic polyneuropathy; E11.9 Type 2 diabetes mellitus without complications; E78.2 Mixed hyperlipidemia; R53.83 Other fatigue; E27.8 Other specified disorders of adrenal gland; K76.0 Fatty (change of) liver, not elsewhere classified | CPT/HCPCS: 36415; 80053; 80061; 82044; 82607; 83036; 83921; 84439; 84443; 85025; 99214 ==

== ENCOUNTER 2024-11-05 09:27 | Day surgery (SDC) | payer OTHER, MEDICAID, SELFPAY ==
[2024-11-05] VITALS (11 sets, daily range): BP systolic 105–154; BP diastolic 45–87; PULSE 82–99; RESP 14–28; TEMP 36.3–36.9; O2SAT 93–99
--- NOTE | 2024-11-05 10:14 | P.HPUD_ITS ---
Surgery/Procedure H&P Update DATE OF PROCEDURE: November 05, 2024 DATE H&P PERFORMED: 10/24/24 H&P UPDATE INFORMATION: I have reviewed H&P completed within last 30 days, I have examined patient prior to procedure, No changes to prior documentation and H&P is in [facility] EMR on date indicated PLANNED PROCEDURE: Operation Date: 11/05/24 11:25 Proposed Procedures p Portacath Placement 30125 M32.9(Not Applicable) - Adelfo Raya MD
[2024-11-05 10:23] LABS: Glucose Point of Care 158 mg/dL (70-110)
[2024-11-05] MEDS: sodium chloride 0.9% 1,000 ML 30 ML IV (10:26)
--- NOTE | 2024-11-05 10:32 | ANES.PREANE2 ---
Pre-Anesthetic Assessment Height/Weight: Height 1.65 m Weight 144.242 kg Temp Pulse Resp BP Pulse Ox O2 Del Method 97.4 F L 88 16 115/71 97 Room Air 11/05/24 10:11/05/24 10:09 11/05/24 10:09 11/05/24 10:09 11/05/24 10:09 11/05/24 10:22 Operation Date: 11/05/24 11:25 Proposed Procedures p Portacath Placement 96083 M32.9(Not Applicable) - Adelfo Raya MD Familial anesthetic complications: None Was Beta Violet taken within 24 hours: N/A Was Clonidine taken within 24 hours: N/A Last intake: Intake Last Liquid Date 11/04/24 Last Liquid Time 23:45 Last Solid Date 11/04/24 Last Solid Time 18:30 Social Tobacco, No alcohol and No tobacco vapes Exam alert, oriented x 3, clear to auscultation bilaterally and regular rate & rhythm Airway Mallampati: Class IV Dentition: chipped (front cracked), false (top) and other (bottom missing) Pulmonary Asthma, Chronic Obstructive Pulmonary Disease and Sleep Apnea CV/HEM Congestive Heart Failure, Hypertension and Myocardial Infarction Hepatic heath liver GI Gastroesophageal Reflux Disease Metabolic Diabetes Mellitus, Hyperlipidemia, Morbid Obesity and Thyroid Disease Musc/skel Lupus Neuropsych Anxiety and Seizure (absence seizures - last one tuesday) Anesthetic Plan ASA status: 4 Anesthesia: MAC Risk of > 500 ml blood loss (7ml/kg in children): No Medications/Allergies Home Medications ?Medication ?Instructions ?Recorded ?Confirmed ?Last Taken ?Type diphenhydramine HCl 25 mg tablet 25 - 50 mg PO PRN 04/08/20 11/01/24 11/04/24 History (Benadryl Allergy) ziprasidone HCl 80 mg capsule 80 mg PO BID 08/24/22 11/01/24 11/04/24 History insulin syringes (disposable) 1 mL #25 ea 04/18/23 10/25/24 11/04/24 Rx oxcarbazepine 600 mg tablet 600 mg PO BID 07/13/23 11/01/24 11/04/24 History (Trileptal) buspirone 30 mg tablet 30 mg PO BID 08/26/23 11/01/24 11/04/24 History epinephrine 0.3 mg/0.3 mL 0.3 mg (0.3 mL) IM Q15M PRN 12/23/23 11/01/24 11/04/24 Rx injection, auto-injector (EpiPen anaphylaxis #2 ea 2-Edward) clonazepam 1 mg tablet 1 mg PO BEDTIME Anxiety 04/11/24 11/05/24 11/04/24 History trazodone 100 mg tablet 200 mg PO BEDTIME 04/11/24 11/01/24 11/04/24 History vilazodone 10 mg tablet 10 mg PO QAM 04/11/24 11/01/24 11/04/24 History blood-glucose meter,continuous #1 ea 05/01/24 10/25/24 11/04/24 Rx (Dexcom G7 [employer]er) Bone Growth Stimulator #1 ea 05/02/24 10/25/24 11/04/24 Rx levothyroxine 25 mcg tablet 25 mcg PO DAILY #60 tabs 05/21/24 11/01/24 11/04/24 Rx insulin glargine 100 unit/mL (3 60 unit SUBCUT QPM 05/22/24 11/01/24 11/04/24 History mL) subcutaneous pen (Lantus Solostar U-100 Insulin) pantoprazole 40 mg tablet,delayed 40 mg PO BID 06/04/24 11/01/24 11/04/24 History release rituximab-abbs 10 mg/mL 1,000 mg IV .[id number] 06/04/24 11/01/24 11/04/24 History intravenous solution albuterol sulfate 2.5 mg/3 mL 2.5 mg (3 mL) inhalation Q4H PRN 06/25/24 11/01/24 11/04/24 Rx (0.083 %) solution for nebulization Shortness Of Breath #90 mL isosorbide mononitrate 30 mg 30 mg PO DAILY #90 tabs 06/26/24 11/01/24 11/04/24 Rx tablet,extended release 24 hr valacyclovir 1 gram tablet 1,000 mg PO TID #21 tabs 07/08/24 11/01/24 11/04/24 Rx (Valtrex) azathioprine 50 mg tablet 100 mg (2 x 50 mg) PO BID #120 tabs 08/01/24 11/01/24 11/04/24 Rx hydroxychloroquine 200 mg tablet 200 mg PO BID #180 tabs 08/01/24 11/05/24 11/04/24 Rx insulin aspart U-100 100 unit/mL 5 unit (0.05 mL) SUBCUT TID #15 mL 08/03/24 11/01/24 11/04/24 Rx (3 mL) subcutaneous pen (Novolog FlexPen U-100 Insulin aspart) fluticasone fur. 100 mcg-umeclid 1 inh inhalation DAILY #60 ea 08/13/24 11/01/24 11/04/24 Rx 62.5 mcg-vilant 25 mcg inhalat.powder (Trelegy Ellipta) ondansetron 4 mg disintegrating 4 mg PO 3XD PRN n/v #60 tabs 08/31/24 11/01/24 11/04/24 Rx tablet gabapentin 600 mg tablet See Rx Instructions .Route 09/03/24 11/01/24 11/04/24 Rx .COMPLEX #180 tabs levothyroxine 200 mcg tablet See Rx Instructions .Route 09/03/24 11/01/24 11/04/24 Rx .COMPLEX #90 tabs bumetanide 1 mg tablet 1 mg PO BID #120 tabs 09/19/24 11/01/24 11/04/24 Rx sacubitril 49 mg-valsartan 51 mg 1 tab PO BID #180 tabs 09/19/24 11/01/24 11/04/24 Rx tablet (Entresto) Auto-titrating CPAP set to 5-20 #1 ea 09/25/24 10/25/24 11/04/24 Rx ferrous sulfate 325 mg (65 mg 325 mg PO BID #180 tabs 10/04/24 11/01/24 11/04/24 Rx iron) tablet,delayed release Diabetic shoes #1 ea 10/05/24 10/25/24 11/04/24 Rx tirzepatide 5 mg/0.5 mL 5 mg (0.5 mL) SUBCUT Q7D #2 mL 10/09/24 11/05/24 11/04/24 Rx subcutaneous pen injector oxycodone-acetaminophen 10 mg-325 1 tab PO Q4H PRN pain 30 days #180 10/19/24 11/01/24 11/04/24 Rx mg tablet tabs blood-glucose sensor (Dexcom G7 #3 ea 10/22/24 10/25/24 11/04/24 Rx Sensor device) dapagliflozin propanediol 10 mg 10 mg PO DAILY #30 tabs 10/25/24 11/01/24 11/04/24 Rx tablet (Farxiga) cholecalciferol (vitamin D3) 1,250 50,000 unit PO Q7D #15 caps 10/30/24 11/01/24 11/04/24 Rx mcg (50,000 unit) capsule folic acid 1 mg tablet 3 mg (3 x 1 mg) PO DAILY #270 tabs 10/30/24 11/01/24 11/04/24 Rx atorvastatin 20 mg tablet 20 mg PO DAILY #90 tabs 11/01/24 11/01/24 11/04/24 Rx montelukast 10 mg tablet 10 mg PO DAILY #90 tabs 11/01/24 11/01/24 11/04/24 Rx (Singulair) Allergies Allergy/AdvReac Type Severity Reaction Status Date / Time anifrolumab-fnia (From Allergy Severe hives Verified 11/01/24 12:35 Saphnelo) belimumab (From Benlysta) Allergy Intermediate rash and Verified 11/01/24 12:35 hives amoxicillin Allergy ALGY-Rash Verified 11/01/24 12:35 bee venom protein (honey bee) Allergy ALGY-Anaphy Verified 11/01/24 12:35 laxis cinnamon Allergy anaphylacti Verified 11/01/24 12:35 c desvenlafaxine (From Pristiq) Allergy Unknown Verified 11/01/24 12:35 fluoxetine (From Prozac) Allergy Unknown Verified 11/01/24 12:35 Latex, Natural Rubber Allergy ALGY-Rash Verified 11/01/24 12:35 oxytocin (From Pitocin) Allergy ADR-Itching Verified 11/01/24 12:35 Penicillins Allergy ALGY-Hives Verified 11/01/24 12:35 Sulfa (Sulfonamide Allergy ALGY-Rash Verified 10/25/24 07:40 Antibiotics) leflunomide AdvReac Intermediate gastric Verified 10/25/24 07:40 Current Medications Generic Name Dose Route Start Last Admin Trade Name Freq PRN Reason Stop Dose Admin Sodium Chloride 1,000 mls @ 30 mls/hr 11/05/24 10:00 11/05/24 10:26 Sodium Chloride 0.9% IV 11/06/24 09:59 30 mls/hr .Q24H HEATH Administration PFSH Anesthesia Medical History Heart failure with preserved ejection fraction History of echocardiogram 03/2024 EF 60%, Grade I/IV, normal PAP, no LVH, RAP 5mmHg OCD (obsessive compulsive disorder) Hernia of fascia Abnormal mammogram of right breast Hyponatremia chronic, may be related to some medications, which are being adjusted by primary prescribers Hypertension Syncope ADHD Generalized anxiety disorder Fatty liver Fatigue B12 deficiency Lung injury associated with vaping Contact dermatitis SLE (systemic lupus erythematosus related syndrome) Hypothyroidism COPD (chronic obstructive pulmonary disease) Leukocytosis chronic Rosacea Positive double stranded DNA antibody test Labral tear of left hip joint KI (obstructive sleep apnea) Morbid obesity Bipolar 1 disorder PTSD (post-traumatic stress disorder) Chronic urticaria Insomnia Mild intermittent asthma Allergic rhinitis GERD (gastroesophageal reflux disease) Shingles 4th occurrence Hyperlipemia, mixed Helicobacter pylori gastritis Mandibular fracture Diabetes mellitus Type 2 Depression Surgical History History of left hip replacement History of cardiac catheterization 04/12/2024 Dr House: No disease noted in the Left Main, Left Anterior Descending, Right, or Circumflex coronary arteries. History of ankle surgery (02/08/24) By Dr Murphy: Left modified Brostr?m with internal brace, repair left peroneus brevis tendon split tear and peroneus longus tenosynovectomy, topaz achilles tendon with PRP injection Status post lumbar spinal fusion (05/23/24) Dr Han, L4-5 History of mandibular surgery For mandibular fracture H/O esophagogastroduodenoscopy (09/02/21) H/O thyroidectomy done due to multinodular goiter S/P cholecystectomy S/P tonsillectomy and adenoidectomy S/P breast lumpectomy Right breast lumpectomy for benign disease Previous section Family History Father Hypertension Cancer testicular Cardiac abnormality Mother Congestive heart failure (CHF) COPD (chronic obstructive pulmonary disease) Diabetes Cancer ovarian and uterine Family/Other Cancer Maternal aunt- HR2 breast Other CAD (coronary artery disease) Family history of premature coronary artery disease Hyperlipidemia Lung disease Psychiatric illness Rheumatoid arthritis Stroke Denies family history of Lupus Clotting disorder Dementia Chronic kidney disease (CKD) Anesthesia complication Bleeding disorder Social History Smoking and tobacco/nicotine status: former use of tobacco/nicotine Quit status (tobacco/nicotine): has quit using Year quit tobacco: July Former quit date comment: Hx of 2 ppd X 25 years, started at age 16 yr. 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 Sexually active: Yes Do you think of yourself as: Straight/Heterosexual Current gender identity: Female Balb[place]/Orthodox: Protestant Special balbina needs: No Agree to transfusion: Yes Data Anesthesia Cardiac Studies: Echocardiogram 04/11/24 Cardiac Event Monitor 04/23/24
[2024-11-05] MEDS: midazolam 1 mg/mL INJ 2 mL 2 MG IVP (10:36)
[2024-11-05 10:49] LABS: OR HCG Qualitative Urine Negative (Negative)
[2024-11-05] MEDS: clindamycin 600 MG/50 ML PREMIX 50 MG IV (10:52)
[2024-11-05] MEDS: heparin, porcine 1,000 unit/mL INJ 10 mL 10000 UNIT IRRIGATION (11:27)
[2024-11-05] MEDS: lidocaine-epi 1% 20 mL INJ INJECTION (11:30)
[2024-11-05] MEDS: BUPivacaine 0.25% INJ 10 mL INJECTION (11:30)
--- NOTE | 2024-11-05 11:58 | PM.OP ---
Operative Report Date of procedure: November 05, 2024 Pre-op diagnosis: Lupus and additional autoimmune conditions requiring frequent infusions Post-op diagnosis: Lupus and additional autoimmune conditions requiring frequent infusions Post-op findings: Normal vascular anatomy of the right Procedure done: Insertion of right IJ port-a-cath Implants: Bard Port-A-Cath Surgeon: Adelfo Raya MD Doctor Of Nurse Anesthesia Practice: [facility] Estimated blood loss: 5 Brief History: 44-year-old female who requires support for high risk medication infusion, after discussion we will resume benefits as documented in my preop note with side to proceed. Procedure: Patient was brought into the OR, she was placed in a supine position, moderate anesthesia sedation was given. Timeout was conducted after the skin was prepped and draped in the usual sterile fashion. I then proceeded to identify the right IJ vein with ultrasound, I infiltrated local anesthesia on top of the vein. I then proceeded to cannulate the vein under direct ultrasound guidance using an 18-gauge needle, the needle tip was seen entering the vein and immediate return of blood was noted. A wire was advanced through the needle and the needle was removed. The position of the wire was verified with ultrasound and fluoroscopy. The wire was then fixed to the drapes. I then placed my attention to the chest, local anesthesia was infiltrated in the previously marked area on the chest and then a tract connecting the chest to the wire insertion site in the neck. I then proceeded to make a 3.5 cm incision in the right upper chest, the incision was deepened to subcutaneous tissue with electrocautery and electrocautery was used to create the subcutaneous pocket to house the Port-A-Cath. I then proceeded to use a hemostat to create a tunnel from the chest wound to the neck. I then proceeded to make a 0.5 cm incision at the level of the wire insertion site in the neck. Hemostasis was verified. I then placed the Port-A-Cath in the pocket and tunneled the catheter using the provided tunneler. The catheter was cut to appropriate length under fluoroscopy guidance and then flushed. I then proceeded to insert an introducer with a peel-off sheath over the wire under direct fluoroscopic guidance. I then remove the wire and the introducer leaving the peel-off sheath in place. The catheter was then advanced through the peel-off sheath and the peel-off sheath was removed leaving the catheter in place. Fluoroscopy showed evidence of Adequate catheter position. I then proceeded to access the port; the port was retrieving blood and flushing fine, I then hep-locked the catheter. Hemostasis was verified. The wound was closed in layers using #3-0 Vicryl for the subcutaneous tissue and #4 Monocryl for the skin. Dermabond was applied. At the end of the procedure all counts were correct. The patient tolerated well the procedure and was transferred to the PACU in stable condition.
[2024-11-05] MEDS: midazolam 1 mg/mL INJ 2 mL IVP (12:16)
--- NOTE | 2024-11-05 12:16 | SC_ITS ---
WS: [id number] C-ARM RADIOGRAPHS CHEST; 2 IMAGES HISTORY: OR PICS COMPARISON: None available. Intraoperative imaging during Mediport placement. Tip of the Mediport is in the mid SVC. SC/C-arm FL for CVA [id number] IMPRESSION: Tip of the Mediport ends in the mid SVC.
--- NOTE | 2024-11-05 13:15 | ANE.PACU2 ---
Inpatient post-anesthesia follow up: Airway intact: Yes Vital signs: Temperature 97.5 F Pulse Rate 85 Respiratory Rate 16 Blood Pressure 119/69 Pulse Oximetry 96 Oxygen Delivery Me thod Room Air Oxygen Flow Rate Fraction of Inspir ed Oxygen Hydration adequate: Yes Nausea and vomiting: No Pain level: 1 Mental status: Baseline
== END 2024-11-05 13:18 | disposition home or self-care (01) ==
PROVIDERS: Anesthesiology; PCP Family Medicine; Visit Provider Surgery
PROC: (CPT 36561; principal; 2024-11-05 11:15)
DX: M32.9 Systemic lupus erythematosus, unspecified (principal); I11.0 Hypertensive heart disease with heart failure; I50.32 Chronic diastolic (congestive) heart failure; J44.9 Chronic obstructive pulmonary disease, unspecified; G47.33 Obstructive sleep apnea (adult) (pediatric); E66.01 Morbid (severe) obesity due to excess calories; Z68.43 Body mass index [BMI] 50.0-59.9, adult; K21.9 Gastro-esophageal reflux disease without esophagitis; E78.2 Mixed hyperlipidemia; E11.9 Type 2 diabetes mellitus without complications; Z88.2 Allergy status to sulfonamides; Z88.0 Allergy status to penicillin; Z88.8 Allergy status to other drugs, medicaments and biological substances; Z91.040 Latex allergy status; Z79.899 Other long term (current) drug therapy; Z79.4 Long term (current) use of insulin; Z79.890 Hormone replacement therapy; Z96.642 Presence of left artificial hip joint; E89.0 Postprocedural hypothyroidism; Z98.1 Arthrodesis status; Z87.891 Personal history of nicotine dependence
CPT/HCPCS: 36561; 36416; 76000; 77001; 81025; 82962; C1788; J1100; J1644; J2250; J2405; J2704; J3010; J3490; J7030

== ENCOUNTER 2024-11-07 22:48 | Emergency (ER) | payer OTHER, MEDICAID, SELFPAY ==
[2024-11-07 23:00] VITALS: BP 142/78; PULSE 91; RESP 16; TEMP 36.3; O2SAT 97
[2024-11-07 23:30] VITALS: PULSE 95; RESP 18; O2SAT 95
[2024-11-07 23:50] VITALS: BP 114/80; PULSE 110; RESP 18; O2SAT 92
[2024-11-07 23:52] LABS: Basophils # 0.1 10^3/uL (0.0-0.1); Basophils % 0.9 %; Eosinophils # 0.2 10^3/uL (0.0-0.8); Eosinophils % 1.1 %; Hematocrit 38.8 % (36-47); Lymphocytes % 22.2 %; Mean Corpuscular HGB Conc 32.7 g/dL (30-55); Mean Corpuscular Hemoglobin 27.4 pg (27-33); Mean Corpuscular Volume 83.6 fl (85-98); Mean Platelet Volume 10.3 fL (7.4-10.4); Monocytes # 1.2 10^3/uL (0.2-0.9); Monocytes % 8.5 %; Neutrophils # 9.13 10^3/uL (1.8-7.7); Neutrophils % 66.6 %; Nucleated Red Blood Cells % 0 %; Platelet Count 349 10^3/cmm (157-399); Red Blood Count 4.64 10^6/uL (3.85-5.65); Red Cell Distribution Width 14.3 % (12.1-15.1)
--- NOTE | 2024-11-08 00:01 | W.ED.WOUNDLC ---
HPI - Wound/Laceration General: Chief Complaint: Wound/Laceration Stated Complaint: talked to nurse, port poss infected Time Seen by Provider: 11/07/24 23:14 History of Present Illness: This patient is a 44-year-old white female who was concerned about a possible port infection. Patient states she had a port placed on Tuesday. She noticed some white drainage from the wound. She is also had some chills, nausea and vomiting. She does have a history of SLE and needed the line placed for frequent blood draws and difficult IV access. Related Data Home Medications ?Medication ?Instructions ?Recorded ?Confirmed diphenhydramine HCl 25 mg tablet 25 - 50 mg PO PRN 04/08/20 11/01/24 (Benadryl Allergy) ziprasidone HCl 80 mg capsule 80 mg PO BID 08/24/22 11/01/24 oxcarbazepine 600 mg tablet 600 mg PO BID 07/13/23 11/01/24 (Trileptal) buspirone 30 mg tablet 30 mg PO BID 08/26/23 11/01/24 clonazepam 1 mg tablet 1 mg PO BEDTIME Anxiety 04/11/24 11/05/24 trazodone 100 mg tablet 200 mg PO BEDTIME 04/11/24 11/01/24 vilazodone 10 mg tablet 10 mg PO QAM 04/11/24 11/01/24 insulin glargine 100 unit/mL (3 60 unit SUBCUT QPM 05/22/24 11/01/24 mL) subcutaneous pen (Lantus Solostar U-100 Insulin) pantoprazole 40 mg tablet,delayed 40 mg PO BID 06/04/24 11/01/24 release rituximab-abbs 10 mg/mL 1,000 mg IV .[id number] 06/04/24 11/01/24 intravenous solution Previous Rx's ?Medication ?Instructions ?Recorded insulin syringes (disposable) 1 mL #25 ea 04/18/23 epinephrine 0.3 mg/0.3 mL 0.3 mg (0.3 mL) IM Q15M PRN 12/23/23 injection, auto-injector (EpiPen anaphylaxis #2 ea 2-Edward) blood-glucose meter,continuous #1 ea 05/01/24 (Dex[place] G7 Camp Assistant) Bone Growth Stimulator #1 ea 05/02/24 levothyroxine 25 mcg tablet 25 mcg PO DAILY #60 tabs 05/21/24 albuterol sulfate 2.5 mg/3 mL 2.5 mg (3 mL) inhalation Q4H PRN 06/25/24 (0.083 %) solution for nebulization Shortness Of Breath #90 mL isosorbide mononitrate 30 mg 30 mg PO DAILY #90 tabs 06/26/24 tablet,extended release 24 hr valacyclovir 1 gram tablet 1,000 mg PO TID #21 tabs 07/08/24 (Valtrex) azathioprine 50 mg tablet 100 mg (2 x 50 mg) PO BID #120 tabs 08/01/24 hydroxychloroquine 200 mg tablet 200 mg PO BID #180 tabs 08/01/24 insulin aspart U-100 100 unit/mL 5 unit (0.05 mL) SUBCUT TID #15 mL 08/03/24 (3 mL) subcutaneous pen (Novolog FlexPen U-100 Insulin aspart) fluticasone fur. 100 mcg-umeclid 1 inh inhalation DAILY #60 ea 08/13/24 62.5 mcg-vilant 25 mcg inhalat.powder (Trelegy Ellipta) ondansetron 4 mg disintegrating 4 mg PO 3XD PRN n/v #60 tabs 08/31/24 tablet gabapentin 600 mg tablet See Rx Instructions .Route 09/03/24 .COMPLEX #180 tabs levothyroxine 200 mcg tablet See Rx Instructions .Route 09/03/24 .COMPLEX #90 tabs bumetanide 1 mg tablet 1 mg PO BID #120 tabs 09/19/24 sacubitril 49 mg-valsartan 51 mg 1 tab PO BID #180 tabs 09/19/24 tablet (Entresto) Auto-titrating CPAP set to 5-20 #1 ea 09/25/24 ferrous sulfate 325 mg (65 mg 325 mg PO BID #180 tabs 10/04/24 iron) tablet,delayed release Diabetic shoes #1 ea 10/05/24 oxycodone-acetaminophen 10 mg-325 1 tab PO Q4H PRN pain 30 days #180 10/19/24 mg tablet tabs blood-glucose sensor ([place] G7 #3 ea 10/22/24 Sensor device) dapagliflozin propanediol 10 mg 10 mg PO DAILY #30 tabs 10/25/24 tablet (Farxiga) cholecalciferol (vitamin D3) 1,250 50,000 unit PO Q7D #15 caps 10/30/24 mcg (50,000 unit) capsule folic acid 1 mg tablet 3 mg (3 x 1 mg) PO DAILY #270 tabs 10/30/24 atorvastatin 20 mg tablet 20 mg PO DAILY #90 tabs 11/01/24 montelukast 10 mg tablet 10 mg PO DAILY #90 tabs 11/01/24 (Singulair) oxycodone 5 mg tablet 5 mg PO Q8H PRN pain 5 days #14 11/05/24 tabs polyethylene glycol 3350 17 gram 17 g PO DAILY 7 days #7 ea 11/05/24 oral powder packet (Miralax) Allergies Allergy/AdvReac Type Severity Reaction Status Date / Time anifrolumab-fnia (From Allergy Severe hives Verified 11/07/24 23:07 Saphnelo) belimumab (From Benlysta) Allergy Intermediate rash and Verified 11/07/24 23:07 hives amoxicillin Allergy ALGY-Rash Verified 11/07/24 23:07 bee venom protein (honey bee) Allergy ALGY-Anaphy Verified 11/07/24 23:07 laxis cinnamon Allergy anaphylacti Verified 11/07/24 23:07 c desvenlafaxine (From Pristiq) Allergy Unknown Verified 11/07/24 23:07 fluoxetine (From Prozac) Allergy Unknown Verified 11/07/24 23:07 Latex, Natural Rubber Allergy ALGY-Rash Verified 11/07/24 23:07 oxytocin (From Pitocin) Allergy ADR-Itching Verified 11/07/24 23:07 Penicillins Allergy ALGY-Hives Verified 11/07/24 23:07 Sulfa (Sulfonamide Allergy ALGY-Rash Verified 11/07/24 23:07 Antibiotics) leflunomide AdvReac Intermediate gastric Verified 11/07/24 23:07 Review of Systems General: Reports: 10 or more systems reviewed and unremarkable except in HPI and below Skin/Breast: Reports: surgical incision PFSH ED PFSH: Medical History Heart failure with preserved ejection fraction History of echocardiogram 03/2024 EF 60%, Grade I/IV, normal PAP, no LVH, RAP 5mmHg OCD (obsessive compulsive disorder) Hernia of fascia Abnormal mammogram of right breast Hyponatremia chronic, may be related to some medications, which are being adjusted by primary prescribers Hypertension Syncope ADHD Generalized anxiety disorder Fatty liver Fatigue B12 deficiency Lung injury associated with vaping Contact dermatitis SLE (systemic lupus erythematosus related syndrome) Hypothyroidism COPD (chronic obstructive pulmonary disease) Leukocytosis chronic Rosacea Positive double stranded DNA antibody test Labral tear of left hip joint KI (obstructive sleep apnea) Morbid obesity Bipolar 1 disorder PTSD (post-traumatic stress disorder) Chronic urticaria Insomnia Mild intermittent asthma Allergic rhinitis GERD (gastroesophageal reflux disease) Shingles 4th occurrence Hyperlipemia, mixed Helicobacter pylori gastritis Mandibular fracture Diabetes mellitus Type 2 Depression Surgical History History of left hip replacement History of cardiac catheterization 04/12/2024 Dr House: No disease noted in the Left Main, Left Anterior Descending, Right, or Circumflex coronary arteries. History of ankle surgery (02/08/24) By Dr Murphy: Left modified Brostr?m with internal brace, repair left peroneus brevis tendon split tear and peroneus longus tenosynovectomy, topaz achilles tendon with PRP injection Status post lumbar spinal fusion (05/23/24) Dr Han, L4-5 History of mandibular surgery For mandibular fracture H/O esophagogastroduodenoscopy (09/02/21) H/O thyroidectomy done due to multinodular goiter S/P cholecystectomy S/P tonsillectomy and adenoidectomy S/P breast lumpectomy Right breast lumpectomy for benign disease Previous section Family History Father Hypertension Cancer testicular Cardiac abnormality Mother Congestive heart failure (CHF) COPD (chronic obstructive pulmonary disease) Diabetes Cancer ovarian and uterine Family/Other Cancer Maternal aunt- HR2 breast Other CAD (coronary artery disease) Family history of premature coronary artery disease Hyperlipidemia Lung disease Psychiatric illness Rheumatoid arthritis Stroke Denies family history of Lupus Clotting disorder Dementia Chronic kidney disease (CKD) Anesthesia complication Bleeding disorder Social History Smoking and tobacco/nicotine status: former use of tobacco/nicotine Quit status (tobacco/nicotine): has quit using Year quit tobacco: July Former quit date comment: Hx of 2 ppd X 25 years, started at age 16 yr. Alcohol intake: former Substance/Drug Use: never Adopted: No Caregiver/support person: No Lives independently: Yes Household members: spouse and family Housing: House Marital status: Marital status details: 26 years in 2023 Number of children: 2 Number of grandchildren: 1 Highest education level completed: Some College, No Degree service: No Current occupational status: employed Current occupation: [employer] Sexually active: Yes Do you think of yourself as: Straight/Heterosexual Current gender identity: Female Balbina/Orthodoxy: Anglican Special balbina needs: No Agree to transfusion: Yes Physical Exam Const: COMMON NORMALS: no acute distress, patient oriented x3 and no limitations GENERAL APPEARANCE: cooperative and comfortable HENMT: COMMON NORMALS: normocephalic, atraumatic, Normal nasal mucous membranes and turbinates present, moist oral mucous membranes and oropharynx normal HEAD & SCALP: normal to inspection, normocephalic and atraumatic FACE & SINUS: normal facial exam NOSE: Normal nasal mucous membranes and turbinates present Eye: COMMON NORMALS: Equal, round and reactive pupils present, EOMs intact bilaterally and conjunctivae normal GENERAL EYE: appearance normal, both eyes and all related structures CONJUNCTIVA: Yes conjunctivae normal PUPIL: Yes Equal, round and reactive pupils present Neck/C-Spine: COMMON NORMALS: supple and no JVD Chest: COMMONS NORMALS: normal inspection of the chest Resp: COMMON NORMALS: normal respiratory effort and clear to auscultation bilaterally AUSCULTATION: clear to auscultation bilaterally Cardio: COMMON NORMALS: no JVD, regular rate, regular rhythm, No gallops present (Cardio), No murmurs present (Cardio) and No rub (Cardio) RATE: regular rate RHYTHM: regular rhythm GI: COMMON NORMALS: Normal to inspection, nondistended, normoactive bowel sounds present, Soft to palpation and non-tender AUSCULTATION: Yes normoactive bowel sounds PALPATION: Yes Soft to palpation : COMMON NORMALS: Yes no CVA tenderness BLADDER/KIDNEY EXAM: Yes no CVA tenderness Back/Pelvis: COMMON NORMALS: no CVA tenderness and thoracic and lumbar spine normal to inspection Extremity: COMMON NORMALS: normal to inspection Neuro: COMMON NORMALS: patient oriented x3 and CN's II-XII intact bilaterally Psych: COMMON NORMALS: mental status grossly normal, Normal thought process present and cooperative THOUGHT PROCESS: Normal thought process present Skin: COMMON NORMALS: no rashes or lesions noted, turgor normal and no jaundice NARRATIVE SKIN EXAM: The surgical site for the port is in the right upper chest. Wound appears to be healing well. No drainage at this time. No surrounding erythema. No fluctuance. GENERAL SKIN EXAM: no rashes or lesions noted and turgor normal Course Vital Signs: Vital signs: Vital Signs Temperature 97.3 F L 11/07/24 23:00 Pulse Rate 110 H 11/07/24 23:50 Respiratory Rate 18 11/07/24 23:50 Blood Pressure 114/80 11/07/24 23:50 Pulse Oximetry 92 11/07/24 23:50 Oxygen Delivery Me thod Room Air 11/07/24 23:50 MDM - Wound/Laceration Medical Decision Making I did have nursing staff access the port and obtain 2 blood cultures from the port. Also checked a CBC and the patient's white blood cell count is 13.7. Patient states her white count is usually elevated secondary to her SLE. I did review previous CBCs and she does frequently have an elevated white count. She is afebrile. I do not see an obvious infection at this time. I do not think she needs antibiotics started. We can wait for the blood cultures. Recommended she follow-up with her surgeon as needed. She was discharged in stable condition. Lab Data 11/07/24 23:42 Laboratory Results WBC 13.70 10^3/uL (3.29-11.43) H 11/07/24 23:42 RBC 4.64 10^6/uL (3.85-5.65) 11/07/24 23:42 Hgb 12.70 g/dL (11.27-16.99) 11/07/24 23:42 Hct 38.8 % (36-47) 11/07/24 23:42 MCV 83.6 fl (85-98) L 11/07/24 23:42 MCH 27.4 pg (27-33) 11/07/24 23:42 MCHC 32.7 g/dL (30-55) 11/07/24 23:42 RDW 14.3 % (12.1-15.1) 11/07/24 23:42 Plt Count 349 10^3/cmm (157-399) 11/07/24 23:42 MPV 10.3 fL (7.4-10.4) 11/07/24 23:42 Neut % (Auto) 66.6 % 11/07/24 23:42 Lymph % (Auto) 22.2 % 11/07/24 23:42 [place] % (Auto) 8.5 % 11/07/24 23:42 Eos % (Auto) 1.1 % 11/07/24 23:42 Baso % (Auto) 0.9 % 11/07/24 23:42 Neut # (Auto) 9.13 10^3/uL (1.8-7.7) H 11/07/24 23:42 Lymph # (Auto) 3.0 10^3/uL (0.8-4.8) 11/07/24 23:42 [place] # (Auto) 1.2 10^3/uL (0.2-0.9) H 11/07/24 23:42 Eos # (Auto) 0.2 10^3/uL (0.0-0.8) 11/07/24 23:42 Baso # (Auto) 0.1 10^3/uL (0.0-0.1) 11/07/24 23:42 Nucleated RBC % (auto) 0 % 11/07/24 23:42 Nucleated RBCs # 0.0 /100WBC 11/07/24 23:42 No radiology studies performed this visit Discharge Plan Discharge Patient Disposition: Home Clinical Impression: Post-op pain Condition: Stable Prescriptions: No Action trazodone 100 mg tablet 200 mg PO BEDTIME epinephrine [EpiPen 2-Edward] 0.3 mg/0.3 mL auto-injector 0.3 mg IM Q15M PRN (Reason: anaphylaxis) Qty: 2 0RF Rx Instructions: for 2 doses (DME) Dexcom G7 Camp Assistant Misc See Rx Instructions .Route Qty: 1 0RF Rx Instructions: As directed azathioprine 50 mg tablet 100 mg PO BID Qty: 120 5RF hydroxychloroquine 200 mg tablet 200 mg PO BID Qty: 180 1RF isosorbide mononitrate 30 mg tablet extended release 24 hr 30 mg PO DAILY Qty: 90 3RF Trelegy Ellipta 100-62.5-25 mcg blister with device 1 inh inhalation DAILY Qty: 60 3RF valacyclovir [Valtrex] 1 gram tablet 1,000 mg PO TID Qty: 21 0RF dapagliflozin propanediol [Farxiga] 10 mg tablet 10 mg PO DAILY Qty: 30 3RF (DME) insulin syringes (disposable) 1 mL syringe See Rx Instructions .ROUTE .MEDSUPPLY Qty: 25 1RF Rx Instructions: As directed oxcarbazepine [Trileptal] 600 mg tablet 600 mg PO BID Rx Instructions: take 1 tablet by mouth in the am, then 1 tablet at bedtime levothyroxine 25 mcg tablet 25 mcg PO DAILY Qty: 60 3RF Rx Instructions: take 25mcg with [id number] daily (DME) Bone Growth Stimulator See Rx Instructions .Route .MEDSUPPLY Qty: 1 0RF Rx Instructions: As directed albuterol sulfate 2.5 mg /3 mL (0.083 %) solution for nebulization 2.5 mg inhalation Q4H PRN (Reason: Shortness Of Breath) Qty: 90 3RF insulin aspart U-100 [Novolog FlexPen U-100 Insulin] 100 unit/mL (3 mL) insulin pen 5 unit SUBCUT TID Qty: 15 1RF Rx Instructions: take before meals ondansetron 4 mg tablet,disintegrating 4 mg PO 3XD PRN (Reason: n/v) Qty: 60 0RF Rx Instructions: DISSOLVE ONE TABLET BY MOUTH EVERY 6 HOURS NEEDED FOR NAUSEA AND VOMITING levothyroxine 200 mcg tablet See Rx Instructions .ROUTE .COMPLEX Qty: 90 0RF Dose Instruction: TAKE 1 TABLET BY MOUTH EVERY DAY Rx Instructions: TAKE 1 TABLET BY MOUTH EVERY DAY gabapentin 600 mg tablet See Rx Instructions .ROUTE .COMPLEX Qty: 180 1RF Dose Instruction: TAKE 1 TABLET BY MOUTH THREE TIMES DAILY Rx Instructions: TAKE 1 TABLET BY MOUTH THREE TIMES DAILY bumetanide 1 mg tablet 1 mg PO BID Qty: 120 1RF Rx Instructions: take an additional tab for weight gain more the 3 pounds in 1 day or 5 pounds in a week sacubitril-valsartan [Entresto] 49-51 mg tablet 1 tab PO BID Qty: 180 1RF (DME) Auto-titrating CPAP set to 5-20 See Rx Instructions .Route .MEDSUPPLY Qty: 1 0RF Rx Instructions: As directed ferrous sulfate 325 mg (65 mg iron) tablet,delayed release (DR/EC) 325 mg PO BID Qty: 180 0RF (DME) Diabetic shoes See Rx Instructions .Route .MEDSUPPLY Qty: 1 0RF Rx Instructions: As directed oxycodone-acetaminophen 10-325 mg tablet 1 tab PO Q4H MDD 6 PRN (Reason: pain) 30 Days Qty: 180 0RF (DME) Dexcom G7 Sensor Device See Rx Instructions .ROUTE .COMPLEX Qty: 3 3RF Dose Instruction: CHANGE every 10 DAYS DIRECTED Rx Instructions: CHANGE every 10 DAYS DIRECTED folic acid 1 mg tablet 3 mg PO DAILY Qty: 270 1RF cholecalciferol (vitamin D3) 1,250 mcg (50,000 unit) capsule 50,000 unit PO Q7D Qty: 15 0RF Rx Instructions: ON TUESDAY montelukast [Singulair] 10 mg tablet 10 mg PO DAILY Qty: 90 1RF atorvastatin 20 mg tablet 20 mg PO DAILY Qty: 90 0RF diphenhydramine HCl [Benadryl Allergy] 25 mg Tablet 25 - 50 mg PO PRN insulin glargine [Lantus Solostar U-100 Insulin] 100 unit/mL (3 mL) insulin pen 60 unit SUBCUT QPM pantoprazole 40 mg Tablet,Delayed Release (Dr/Ec) 40 mg PO BID rituximab-abbs 10 mg/mL Solution 1,000 mg IV .[id number] oxycodone 5 mg tablet 5 mg PO Q8H PRN (Reason: pain) 5 Days Qty: 14 0RF polyethylene glycol 3350 [Miralax] 17 gram powder in packet 17 g PO DAILY 7 Days Qty: 7 0RF ziprasidone HCl 80 mg Capsule 80 mg PO BID buspirone 30 mg tablet 30 mg PO BID clonazepam 1 mg tablet 1 mg PO BEDTIME vilazodone 10 mg tablet 10 mg PO QAM Discharge Orders: Discharge ED (Routine); Ordered 11/08/24 Ordered By: Jh Villafuerte Referrals: Elan Kuhn MD [Primary Care Provider] - Activity Restrictions/Additional Instructions: Contact your surgeon for follow-up. We will contact you if anything grows from the cultures. 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
[2024-11-08 00:20] VITALS: BP 103/63; PULSE 92; O2SAT 94
== END 2024-11-08 00:21 | disposition home or self-care (01) ==
PROVIDERS: Emergency Provider Emergency Medicine; PCP Family Medicine
DX: G89.18 Other acute postprocedural pain (principal); Z79.4 Long term (current) use of insulin; Z87.891 Personal history of nicotine dependence; E11.9 Type 2 diabetes mellitus without complications; J44.9 Chronic obstructive pulmonary disease, unspecified; I11.0 Hypertensive heart disease with heart failure; I50.30 Unspecified diastolic (congestive) heart failure
CPT/HCPCS: 36415; 36591; 85025; 87040; 96374; 99284; J1642

== ENCOUNTER → 2024-11-19 09:01 | Outpatient (BNVA) | payer OTHER, MEDICAID, SELFPAY | PROVIDERS: PCP Family Medicine; Visit Provider Internal Medicine Rheumatology | DX: Z09 Encounter for follow-up examination after completed treatment for conditions other than malignant neoplasm (principal); R76.8 Other specified abnormal immunological findings in serum; L71.9 Rosacea, unspecified; J96.01 Acute respiratory failure with hypoxia; G47.33 Obstructive sleep apnea (adult) (pediatric); M32.9 Systemic lupus erythematosus, unspecified; L25.9 Unspecified contact dermatitis, unspecified cause; U07.0 Vaping-related disorder | CPT/HCPCS: 99214 ==

== ENCOUNTER → 2024-11-20 08:08 | Outpatient (BNVA) | payer OTHER, MEDICAID, SELFPAY | PROVIDERS: PCP Family Medicine; Visit Provider Surgery | DX: M32.9 Systemic lupus erythematosus, unspecified (principal) | CPT/HCPCS: 99213 ==

== ENCOUNTER 2024-11-27 13:40 | Emergency (ER) | payer OTHER, MEDICAID, SELFPAY ==
[2024-11-27 13:41] VITALS: BP 150/94; PULSE 86; RESP 17; TEMP 36.8; O2SAT 100; BMI 51.7
--- NOTE | 2024-11-27 13:43 | ECG_ITS ---
[facility]: 2024-11-27 Pat Name: Lori Padron Department: Room: Gender: Female House Mover: : 1980 Requested By: Neo Bravo Order Number: [id number] Reading MD: Measurements Intervals [place] Rate: 82 P: 18 [place]: 180 QRS: 24 QRSD: 101 T: 30 QT: 395 QTc: 461 Interpretive Statements SINUS RHYTHM LOW QRS VOLTAGE IN PRECORDIAL LEADS [QRS DEFLECTION < 1.0 mV IN CHEST LEADS] INTERPRETATION BASED ON A DEFAULT AGE OF 40 YEARS No previous ECG available for comparison [email or web address]
--- NOTE | 2024-11-27 13:43 | XRR_ITS ---
PROCEDURE INFORMATION: Exam: XR Chest Exam date and time: 11/27/2024 12:56 PM Age: 44 years old Clinical indication: Pain; Angina pectoris; Additional info: Cp TECHNIQUE: Imaging protocol: Radiologic exam of the chest. Views: 1 view. COMPARISON: CR (CHEST, ) 09/08/2024 11:13 AM FINDINGS: Tubes, catheters and devices: Interval placement of a right-sided port a catheter terminating in the right atrium. Lungs: Lung volumes are low with mild left basilar atelectasis. Pleural spaces: Unremarkable. No pleural effusion. No pneumothorax. Heart/Mediastinum: Unremarkable. No cardiomegaly. Bones/joints: Unremarkable. XR/XR chest 1V portable [id number] IMPRESSION: Mild atelectasis at the left lung base in the setting of low lung volumes. Leena catheter.
--- NOTE | 2024-11-27 14:18 | W.ED.CHESTPA ---
HPI - Chest Pain General: Chief Complaint: Chest Pain Stated Complaint: chest pain Time Seen by Provider: 11/27/24 14:00 History of Present Illness: 44-year-old female presents emergency room complaining of chest pain and pain radiating to her right arm. Patient has a history of hypertension. She reporting sharp pain that began 20 minutes prior to arrival feels like someone is jumping on her chest. She states she has a cardiac history she does indeed have a history of hypertension but she had angiogram done March 2024 which showed normal coronary arteries. She subsequently had a right heart catheterization done in August 2024 that showed mild pulmonary hypertension. Chest pain now is reproducible with palpation of the chest and somewhat to a lesser extent with deep breathing Associated symptoms: Deny abdominal pain, dyspnea or fever(s) Related Data Home Medications ?Medication ?Instructions ?Recorded ?Confirmed ziprasidone HCl 80 mg capsule 80 mg PO BID 08/24/22 11/27/24 oxcarbazepine 600 mg tablet 600 mg PO BID 07/13/23 11/27/24 (Trileptal) buspirone 30 mg tablet 30 mg PO BID 08/26/23 11/27/24 clonazepam 1 mg tablet 1 mg PO BEDTIME Anxiety 04/11/24 11/27/24 trazodone 100 mg tablet 200 mg PO BEDTIME 04/11/24 11/27/24 vilazodone 10 mg tablet 10 mg PO QAM 04/11/24 11/27/24 insulin glargine 100 unit/mL (3 30 unit SUBCUT QPM 05/22/24 11/27/24 mL) subcutaneous pen (Lantus Solostar U-100 Insulin) pantoprazole 40 mg tablet,delayed 40 mg PO BID 06/04/24 11/27/24 release rituximab-abbs 10 mg/mL 1,000 mg IV .[id number] 06/04/24 11/27/24 intravenous solution acetaminophen 325 mg tablet 650 mg PO QID PRN Fever Or Pain 11/27/24 11/27/24 (Tylenol) hydroxyzine pamoate 50 mg capsule 50 mg PO QID PRN anxiety 11/27/24 11/27/24 ibuprofen 200 mg tablet (Advil) 800 mg PO Q6H PRN Fever Or Pain 11/27/24 11/27/24 lisinopril 40 mg tablet 40 mg PO BEDTIME 11/27/24 11/27/24 tirzepatide 5 mg/0.5 mL 5 mg SUBCUT Q7D 11/27/24 11/27/24 subcutaneous pen injector (Rai) Previous Rx's ?Medication ?Instructions ?Recorded epinephrine 0.3 mg/0.3 mL 0.3 mg (0.3 mL) IM Q15M PRN 12/23/23 injection, auto-injector (EpiPen anaphylaxis #2 ea 2-Edward) levothyroxine 25 mcg tablet 25 mcg PO DAILY #60 tabs 05/21/24 albuterol sulfate 2.5 mg/3 mL 2.5 mg (3 mL) inhalation Q4H PRN 06/25/24 (0.083 %) solution for nebulization Shortness Of Breath #90 mL isosorbide mononitrate 30 mg 30 mg PO DAILY #90 tabs 06/26/24 tablet,extended release 24 hr valacyclovir 1 gram tablet 1,000 mg PO TID #21 tabs 07/08/24 (Valtrex) insulin aspart U-100 100 unit/mL 5 unit (0.05 mL) SUBCUT TID #15 mL 08/03/24 (3 mL) subcutaneous pen (Novolog FlexPen U-100 Insulin aspart) fluticasone fur. 100 mcg-umeclid 1 inh inhalation DAILY #60 ea 08/13/24 62.5 mcg-vilant 25 mcg inhalat.powder (Trelegy Ellipta) ondansetron 4 mg disintegrating 4 mg PO 3XD PRN n/v #60 tabs 08/31/24 tablet gabapentin 600 mg tablet See Rx Instructions .Route 09/03/24 .COMPLEX #180 tabs bumetanide 1 mg tablet 1 mg PO BID #120 tabs 09/19/24 sacubitril 49 mg-valsartan 51 mg 1 tab PO BID #180 tabs 09/19/24 tablet (Entresto) dapagliflozin propanediol 10 mg 10 mg PO DAILY #30 tabs 10/25/24 tablet (Farxiga) atorvastatin 20 mg tablet 20 mg PO DAILY #90 tabs 11/01/24 montelukast 10 mg tablet 10 mg PO DAILY #90 tabs 11/01/24 (Singulair) azathioprine 50 mg tablet 100 mg (2 x 50 mg) PO BID #120 tabs 11/19/24 folic acid 1 mg tablet 3 mg (3 x 1 mg) PO DAILY #270 tabs 11/19/24 hydroxychloroquine 200 mg tablet 200 mg PO BID #180 tabs 11/19/24 oxycodone-acetaminophen 10 mg-325 1 tab PO Q4H PRN pain 30 days #180 11/19/24 mg tablet tabs meloxicam 15 mg tablet 15 mg PO DAILY #30 tabs 11/21/24 levothyroxine 200 mcg tablet See Rx Instructions .Route 11/27/24 .COMPLEX #90 tabs Allergies Allergy/AdvReac Type Severity Reaction Status Date / Time anifrolumab-fnia (From Allergy Severe hives Verified 11/20/24 08:10 Saphnelo) belimumab (From Benlysta) Allergy Intermediate rash and Verified 11/20/24 08:10 hives amoxicillin Allergy ALGY-Rash Verified 11/20/24 08:10 bee venom protein (honey bee) Allergy ALGY-Anaphy Verified 11/20/24 08:10 laxis cinnamon Allergy anaphylacti Verified 11/20/24 08:10 c desvenlafaxine (From Pristiq) Allergy Unknown Verified 11/20/24 08:10 fluoxetine (From Prozac) Allergy Unknown Verified 11/20/24 08:10 Latex, Natural Rubber Allergy ALGY-Rash Verified 11/20/24 08:10 oxytocin (From Pitocin) Allergy ADR-Itching Verified 11/20/24 08:10 Penicillins Allergy ALGY-Hives Verified 11/20/24 08:10 Sulfa (Sulfonamide Allergy ALGY-Rash Verified 11/20/24 08:10 Antibiotics) leflunomide AdvReac Intermediate gastric Verified 11/20/24 08:10 Review of Systems Const: Denies: fever(s) or chills Card: Reports: chest pain Resp: Denies: dyspnea GI: Denies: abdominal pain : Denies: dysuria, urinary frequency or urinary urgency Musc: Denies: neck pain or back pain Skin/Breast: Denies: rash PFSH ED PFSH: Medical History Heart failure with preserved ejection fraction History of echocardiogram 03/2024 EF 60%, Grade I/IV, normal PAP, no LVH, RAP 5mmHg OCD (obsessive compulsive disorder) Hernia of fascia Abnormal mammogram of right breast Hyponatremia chronic, may be related to some medications, which are being adjusted by primary prescribers Hypertension Syncope ADHD Generalized anxiety disorder Fatty liver Fatigue B12 deficiency Lung injury associated with vaping Contact dermatitis SLE (systemic lupus erythematosus related syndrome) Hypothyroidism COPD (chronic obstructive pulmonary disease) Leukocytosis chronic Rosacea Positive double stranded DNA antibody test Labral tear of left hip joint KI (obstructive sleep apnea) Morbid obesity Bipolar 1 disorder PTSD (post-traumatic stress disorder) Chronic urticaria Insomnia Mild intermittent asthma Allergic rhinitis GERD (gastroesophageal reflux disease) Shingles 4th occurrence Hyperlipemia, mixed Helicobacter pylori gastritis Mandibular fracture Diabetes mellitus Type 2 Depression Surgical History History of left hip replacement History of cardiac catheterization 04/12/2024 Dr House: No disease noted in the Left Main, Left Anterior Descending, Right, or Circumflex coronary arteries. History of ankle surgery (02/08/24) By Dr Murphy: Left modified Brostr?m with internal brace, repair left peroneus brevis tendon split tear and peroneus longus tenosynovectomy, topaz achilles tendon with PRP injection Status post lumbar spinal fusion (05/23/24) Dr Han, L4-5 History of mandibular surgery For mandibular fracture H/O esophagogastroduodenoscopy (09/02/21) H/O thyroidectomy done due to multinodular goiter S/P cholecystectomy S/P tonsillectomy and adenoidectomy S/P breast lumpectomy Right breast lumpectomy for benign disease Previous section Family History Father Hypertension Cancer testicular Cardiac abnormality Mother Congestive heart failure (CHF) COPD (chronic obstructive pulmonary disease) Diabetes Cancer ovarian and uterine Family/Other Cancer Maternal aunt- HR2 breast Other CAD (coronary artery disease) Family history of premature coronary artery disease Hyperlipidemia Lung disease Psychiatric illness Rheumatoid arthritis Stroke Denies family history of Lupus Clotting disorder Dementia Chronic kidney disease (CKD) Anesthesia complication Bleeding disorder Social History Smoking and tobacco/nicotine status: current every day tobacco/nicotine user e-cigarettes Quit status (tobacco/nicotine): has quit using Year quit tobacco: July Former quit date comment: Hx of 2 ppd X 25 years, started at age 16 yr. Alcohol intake: former Substance/Drug Use: never Adopted: No Caregiver/support person: No Lives independently: Yes Household members: spouse and family Housing: House Marital status: Marital status details: 26 years in 2023 Number of children: 2 Number of grandchildren: 1 Highest education level completed: Some College, No Degree service: No Current occupational status: employed Current occupation: [employer] Sexually active: Yes Do you think of yourself as: Straight/Heterosexual Current gender identity: Female [place]/Oriental Orthodox: Adventist Special balbina needs: No Agree to transfusion: Yes Physical Exam Const: GENERAL APPEARANCE: cooperative ORIENTATION/CONSCIOUSNESS: Yes awake, Yes oriented to person, Yes oriented to place and Yes oriented to time HENMT: COMMON NORMALS: normocephalic, atraumatic and hearing grossly normal bilaterally HEAD & SCALP: normocephalic and atraumatic Resp: COMMON NORMALS: normal respiratory effort, No retractions, No use of accessory muscles and clear to auscultation bilaterally AUSCULTATION: clear to auscultation bilaterally Cardio: COMMON NORMALS: regular rate, regular rhythm and No murmurs present (Cardio) RATE: regular rate RHYTHM: regular rhythm GI: COMMON NORMALS: Soft to palpation and No hepatosplenomegaly present AUSCULTATION: Yes normoactive bowel sounds PALPATION: Yes Soft to palpation, No Tenderness to palpation present (GI), No Guarding due to palpation present (GI) and Yes No hepatosplenomegaly present Extremity: COMMON NORMALS: normal to inspection, capillary refill normal, no clubbing, cyanosis or edema, no calf tenderness and no pedal edema Neuro: SENSORIUM/ORIENTATION: Yes oriented to person, Yes oriented to place and Yes oriented to time Skin: COMMON NORMALS: no rashes or lesions noted GENERAL SKIN EXAM: no rashes or lesions noted Course Vital Signs: Vital signs: Vital Signs Temperature 98.2 F 11/27/24 13:41 Pulse Rate 82 11/27/24 16:35 Respiratory Rate 21 H 11/27/24 15:00 Blood Pressure 145/67 11/27/24 16:35 Pulse Oximetry 93 11/27/24 16:35 Oxygen Delivery Me thod Room Air 11/27/24 13:41 MDM - Chest Pain Medical Decision Making Troponin unremarkable EKG shows no acute changes. Symptoms have resolved. Symptoms not suggestive of acute coronary syndrome and patient has had recent angiography that showed normal coronary arteries. She is feeling better and wishes to go home will discharge home follow-up with primary care Medical Records I reviewed the patient's medical records. Lab Data I reviewed the patient's lab results. 11/27/24 14:53 11/27/24 14:53 Radiology Impressions Chest X-Ray 11/27/24 13:43 IMPRESSION: Mild atelectasis at the left lung base in the setting of low lung volumes. Leena catheter. Laboratory Results WBC 9.20 10^3/uL (3.29-11.43) 11/27/24 14:53 RBC 4.39 10^6/uL (3.85-5.65) 11/27/24 14:53 Hgb 12.20 g/dL (11.27-16.99) 11/27/24 14:53 Hct 36.6 % (36-47) 11/27/24 14:53 MCV 83.4 fl (85-98) L 11/27/24 14:53 MCH 27.8 pg (27-33) 11/27/24 14:53 MCHC 33.3 g/dL (30-55) 11/27/24 14:53 RDW 13.6 % (12.1-15.1) 11/27/24 14:53 Plt Count 279 10^3/cmm (157-399) 11/27/24 14:53 MPV 10.5 fL (7.4-10.4) H 11/27/24 14:53 Neut % (Auto) 71.5 % 11/27/24 14:53 Lymph % (Auto) 17.8 % 11/27/24 14:53 [place] % (Auto) 7.6 % 11/27/24 14:53 Eos % (Auto) 1.2 % 11/27/24 14:53 Baso % (Auto) 0.7 % 11/27/24 14:53 Neut # (Auto) 6.58 10^3/uL (1.8-7.7) 11/27/24 14:53 Lymph # (Auto) 1.6 10^3/uL (0.8-4.8) 11/27/24 14:53 [place] # (Auto) 0.7 10^3/uL (0.2-0.9) 11/27/24 14:53 Eos # (Auto) 0.1 10^3/uL (0.0-0.8) 11/27/24 14:53 Baso # (Auto) 0.1 10^3/uL (0.0-0.1) 11/27/24 14:53 Nucleated RBC % (auto) 0 % 11/27/24 14:53 Nucleated RBCs # 0.0 /100WBC 11/27/24 14:53 Sodium 134 mmol/L (136-145) L 11/27/24 14:53 Potassium 4.2 mmol/L (3.5-5.1) 11/27/24 14:53 Chloride 98 mmol/L (98-107) 11/27/24 14:53 Carbon Dioxide 26 mmol/L (22-29) 11/27/24 14:53 Anion Gap 14.2 (5-19) 11/27/24 14:53 BUN 12 mg/dL (6-20) 11/27/24 14:53 Creatinine 0.4 mg/dL (0.5-0.9) L 11/27/24 14:53 GFR Calculation 175.0 mL/min (90-130) H 11/27/24 14:53 Glucose 187 mg/dL (65-115) H 11/27/24 14:53 Calculated Osmolality 283 mOsm/kg (285-295) L 11/27/24 14:53 Calcium 9.1 mg/dL (8.5-10.5) 11/27/24 14:53 Total Bilirubin 0.2 mg/dL (0.15-1.2) 11/27/24 14:53 AST 17 U/L (0-32) 11/27/24 14:53 ALT 21 U/L (0-33) 11/27/24 14:53 Alkaline Phosphatase 96 U/L (35-105) 11/27/24 14:53 Troponin T Baseline < 6 ng/L (0-10) 11/27/24 14:53 Total Protein 6.9 g/dL (6.6-8.7) 11/27/24 14:53 Albumin 4.4 g/dL (3.5-5.2) 11/27/24 14:53 Globulin 2.5 g/dL (1.3-4.6) 11/27/24 14:53 Lipase 42 U/L (13-60) 11/27/24 14:53 All radiology interpretation(s) finalized by discharge Discharge Plan Discharge Patient Disposition: Home Clinical Impression: Anterior chest wall pain Condition: Stable Prescriptions: No Action trazodone 100 mg tablet 200 mg PO BEDTIME epinephrine [EpiPen 2-Edward] 0.3 mg/0.3 mL auto-injector 0.3 mg IM Q15M PRN (Reason: anaphylaxis) Qty: 2 0RF Rx Instructions: for 2 doses isosorbide mononitrate 30 mg tablet extended release 24 hr 30 mg PO DAILY Qty: 90 3RF Trelegy Ellipta 100-62.5-25 mcg blister with device 1 inh inhalation DAILY Qty: 60 3RF valacyclovir [Valtrex] 1 gram tablet 1,000 mg PO TID Qty: 21 0RF dapagliflozin propanediol [Farxiga] 10 mg tablet 10 mg PO DAILY Qty: 30 3RF azathioprine 50 mg tablet 100 mg PO BID Qty: 120 5RF folic acid 1 mg tablet 3 mg PO DAILY Qty: 270 1RF hydroxychloroquine 200 mg tablet 200 mg PO BID Qty: 180 1RF oxcarbazepine [Trileptal] 600 mg tablet 600 mg PO BID Rx Instructions: take 1 tablet by mouth in the am, then 1 tablet at bedtime levothyroxine 25 mcg tablet 25 mcg PO DAILY Qty: 60 3RF Rx Instructions: take 25mcg with [id number] daily albuterol sulfate 2.5 mg /3 mL (0.083 %) solution for nebulization 2.5 mg inhalation Q4H PRN (Reason: Shortness Of Breath) Qty: 90 3RF insulin aspart U-100 [Novolog FlexPen U-100 Insulin] 100 unit/mL (3 mL) insulin pen 5 unit SUBCUT TID Qty: 15 1RF Rx Instructions: take before meals ondansetron 4 mg tablet,disintegrating 4 mg PO 3XD PRN (Reason: n/v) Qty: 60 0RF Rx Instructions: DISSOLVE ONE TABLET BY MOUTH EVERY 6 HOURS NEEDED FOR NAUSEA AND VOMITING gabapentin 600 mg tablet See Rx Instructions .ROUTE .COMPLEX Qty: 180 1RF Dose Instruction: TAKE 1 TABLET BY MOUTH THREE TIMES DAILY Rx Instructions: TAKE 1 TABLET BY MOUTH THREE TIMES DAILY bumetanide 1 mg tablet 1 mg PO BID Qty: 120 1RF Rx Instructions: take an additional tab for weight gain more the 3 pounds in 1 day or 5 pounds in a week sacubitril-valsartan [Entresto] 49-51 mg tablet 1 tab PO BID Qty: 180 1RF montelukast [Singulair] 10 mg tablet 10 mg PO DAILY Qty: 90 1RF atorvastatin 20 mg tablet 20 mg PO DAILY Qty: 90 0RF oxycodone-acetaminophen 10-325 mg tablet 1 tab PO Q4H MDD 6 PRN (Reason: pain) 30 Days Qty: 180 0RF meloxicam 15 mg tablet 15 mg PO DAILY Qty: 30 0RF levothyroxine 200 mcg tablet See Rx Instructions .ROUTE .COMPLEX Qty: 90 0RF Dose Instruction: TAKE 1 TABLET BY MOUTH EVERY DAY Rx Instructions: TAKE 1 TABLET BY MOUTH EVERY DAY insulin glargine [Lantus Solostar U-100 Insulin] 100 unit/mL (3 mL) insulin pen 30 unit SUBCUT QPM pantoprazole 40 mg Tablet,Delayed Release (Dr/Ec) 40 mg PO BID rituximab-abbs 10 mg/mL Solution 1,000 mg IV .[id number] ziprasidone HCl 80 mg Capsule 80 mg PO BID buspirone 30 mg tablet 30 mg PO BID clonazepam 1 mg tablet 1 mg PO BEDTIME vilazodone 10 mg tablet 10 mg PO QAM acetaminophen [Tylenol] 325 mg Tablet 650 mg PO QID PRN (Reason: Fever Or Pain) ibuprofen [Advil] 200 mg Tablet 800 mg PO Q6H PRN (Reason: Fever Or Pain) hydroxyzine pamoate 50 mg capsule 50 mg PO QID PRN (Reason: anxiety ) lisinopril 40 mg tablet 40 mg PO BEDTIME Mounjaro 5 mg/0.5 mL pen injector 5 mg SUBCUT Q7D Discharge Orders: Discharge ED (Routine); Ordered 11/27/24 Ordered By: David Wallace Referrals: Elan Kuhn MD [Primary Care Provider] - Discharge Diet: Usual diet Discharge Activity: Increase activity as tolerated Patient Instructions: Opioid Safety, Pain Management Activity Restrictions/Additional Instructions: [facility]. It is very important that you follow up as instructed or that you return to the Emergency Department should you have concerns or if your condition changes or worsens in any way. You are seen in the emergency room with complaint of chest pain. Your previous cardiac catheterization was reviewed you had normal coronary arteries at that time. Cardiac enzymes and your EKG today were normal. Your chest pain is reproducible with palpation across the anterior chest. This is musculoskeletal in nature there is no sign of acute coronary syndrome. Will discharge you home. Follow-up with primary care doctor. Use previously prescribed pain medications. Print Language: Namibian Coding Level of Care Code ED [employer] for Chao Monsalve
[2024-11-27 14:36] VITALS: BP 140/85; PULSE 85; O2SAT 96
[2024-11-27 15:00] VITALS: BP 140/85; PULSE 82; RESP 21; O2SAT 93
[2024-11-27 15:08] LABS: Basophils # 0.1 10^3/uL (0.0-0.1); Basophils % 0.7 %; Eosinophils # 0.1 10^3/uL (0.0-0.8); Eosinophils % 1.2 %; Hematocrit 36.6 % (36-47); Lymphocytes # 1.6 10^3/uL (0.8-4.8); Lymphocytes % 17.8 %; Mean Corpuscular HGB Conc 33.3 g/dL (30-55); Mean Corpuscular Hemoglobin 27.8 pg (27-33); Mean Corpuscular Volume 83.4 fl (85-98); Mean Platelet Volume 10.5 fL (7.4-10.4); Monocytes # 0.7 10^3/uL (0.2-0.9); Monocytes % 7.6 %; Neutrophils # 6.58 10^3/uL (1.8-7.7); Neutrophils % 71.5 %; Nucleated Red Blood Cells % 0 %; Platelet Count 279 10^3/cmm (157-399); Red Blood Count 4.39 10^6/uL (3.85-5.65); Red Cell Distribution Width 13.6 % (12.1-15.1)
[2024-11-27] MEDS: ketorolac 30 mg/mL INJ IVP (15:18)
[2024-11-27 15:22] LABS: Alanine Aminotransferase 21 U/L (0-33); Albumin Level 4.4 g/dL (3.5-5.2); Alkaline Phosphatase 96 U/L (35-105); Anion Gap 14.2 (5-19); Aspartate Amino Transferase 17 U/L (0-32); Blood Urea Nitrogen 12 mg/dL (6-20); Calcium 9.1 mg/dL (8.5-10.5); Carbon Dioxide 26 mmol/L (22-29); Chloride 98 mmol/L (98-107); Creatinine Clr Calc Pharmacy 262.1254; Globulin 2.5 g/dL (1.3-4.6); Glucose 187 mg/dL (65-115); Lipase 42 U/L (13-60); Osmolality Calculated 283 mOsm/kg (285-295); Potassium 4.2 mmol/L (3.5-5.1); Sodium 134 mmol/L (136-145); Total Bilirubin 0.2 mg/dL (0.15-1.2); Total Protein 6.9 g/dL (6.6-8.7); Troponin(5th) Baseline < 6 ng/L (0-10)
[2024-11-27 16:35] VITALS: BP 145/67; PULSE 82; O2SAT 93
== END 2024-11-27 16:41 | disposition home or self-care (01) ==
PROVIDERS: Emergency Medicine; Emergency Provider Family Medicine; PCP Family Medicine
DX: R07.89 Other chest pain (principal); Z79.4 Long term (current) use of insulin; F17.290 Nicotine dependence, other tobacco product, uncomplicated; E11.9 Type 2 diabetes mellitus without complications; J44.9 Chronic obstructive pulmonary disease, unspecified; E78.2 Mixed hyperlipidemia; I11.0 Hypertensive heart disease with heart failure; I50.30 Unspecified diastolic (congestive) heart failure
CPT/HCPCS: 71045; 80053; 83690; 84484; 85025; 93005; 96374; 99285; J1885

== ENCOUNTER 2024-12-20 14:30 | Oncology outpatient (recurring) (ONCR) | payer OTHER, MEDICAID, SELFPAY ==
[2024-12-06 08:06] VITALS: BMI 51.9
[2024-12-06 08:07] VITALS: BP 143/77; PULSE 84; RESP 16; TEMP 36.6; O2SAT 99
[2024-12-06] MEDS: methylPREDNISolone sod succ 125 mg/2 mL INJ IVP (08:20)
[2024-12-06] MEDS: acetaminophen 325 mg Tablet 650 MG PO (08:21)
[2024-12-06] MEDS: sodium chloride 0.9% 250 ML 75 ML IV (08:21)
[2024-12-06] MEDS: diphenhydrAMINE 50 mg/mL SDV 1mL 25 MG IVP (08:27)
[2024-12-06] MEDS: rituximab-abbs 1,000 MG in sodium chloride 0.9% 500 ML 200 MG IV (08:57)
[2024-12-06 09:30] VITALS: BP 115/66; PULSE 83; RESP 16; TEMP 37.1; O2SAT 99
[2024-12-06 10:00] VITALS: BP 100/62; PULSE 80; RESP 16; TEMP 36.6; O2SAT 95
[2024-12-06 12:23] VITALS: BP 121/76; PULSE 83; RESP 17; TEMP 36.8; O2SAT 94
[2024-12-20 15:33] LABS: Basophils # 0.1 10^3/uL (0.0-0.1); Basophils % 1.1 %; Eosinophils # 0.1 10^3/uL (0.0-0.8); Eosinophils % 0.6 %; Hematocrit 39.5 % (36-47); Lymphocytes # 1.5 10^3/uL (0.8-4.8); Lymphocytes % 13.9 %; Mean Corpuscular HGB Conc 31.9 g/dL (30-55); Mean Corpuscular Volume 84.6 fl (85-98); Mean Platelet Volume 9.8 fL (7.4-10.4); Monocytes # 0.7 10^3/uL (0.2-0.9); Neutrophils # 8.35 10^3/uL (1.8-7.7); Neutrophils % 77.1 %; Nucleated Red Blood Cells % 0 %; Platelet Count 399 10^3/cmm (157-399); Red Blood Count 4.67 10^6/uL (3.85-5.65); Red Cell Distribution Width 13.2 % (12.1-15.1); White Blood Count 10.83 10^3/uL (3.29-11.43)
[2024-12-20 15:55] LABS: Estmated Average Glucose 194; Hemoglobin A1C 8.4 % (4.0-6.0)
[2024-12-20 16:11] LABS: Alanine Aminotransferase 18 U/L (0-33); Albumin Level 4.6 g/dL (3.5-5.2); Alkaline Phosphatase 98 U/L (35-105); Anion Gap 18.5 (5-19); Aspartate Amino Transferase 16 U/L (0-32); Blood Urea Nitrogen 17 mg/dL (6-20); Calcium 9.5 mg/dL (8.5-10.5); Carbon Dioxide 24 mmol/L (22-29); Chloride 100 mmol/L (98-107); Chol HDL Ratio 2.58 mg/dL (0.0-4.40); Cholesterol 134 mg/dL (0-200); Creatinine Clr Calc Pharmacy 175.1005; Globulin 3.2 g/dL (1.3-4.6); Glomerular Filtration Rate 109.6 mL/min (90-130); Glucose 161 mg/dL (65-115); HDL Cholesterol 52 mg/dL (60-100); LDL Cholesterol Calculated 37 mg/dL (50-129); LDL HDL Ratio 0.71 RATIO (0.00-3.22); Osmolality Calculated 291 mOsm/kg (285-295); Potassium 4.5 mmol/L (3.5-5.1); Sodium 138 mmol/L (136-145); Thyroid Stimulating Hormone 1.71 uIU/mL (0.27-4.20); Total Bilirubin 0.2 mg/dL (0.15-1.2); Total Protein 7.8 g/dL (6.6-8.7); Triglycerides 223 mg/dL (0-150)
== END 2024-12-20 23:59 | disposition home or self-care (01) ==
PROVIDERS: PCP Family Medicine; Visit Provider Orthopaedic Surgery
DX: Z53.9 Procedure and treatment not carried out, unspecified reason; Z79.899 Other long term (current) drug therapy; R79.89 Other specified abnormal findings of blood chemistry; E11.9 Type 2 diabetes mellitus without complications; T81.40XA Infection following a procedure, unspecified, initial encounter; X58.XXXA Exposure to other specified factors, initial encounter
CPT/HCPCS: 10060; 11900; 80053; 80061; 83036; 84443; 85025; 96375; 96413; 96415; J1200; J2919; J7040; J7050; J9999; Q5115

== ENCOUNTER 2024-12-27 08:23 | Outpatient (CLI) | payer OTHER, MEDICAID, SELFPAY ==
--- NOTE | 2024-12-27 08:30 | US_ITS ---
WS: [id number] Bilateral subcutaneous ultrasound of the axilla, 12/27/2024 Clinical Data: R59.9 - Enlarged lymph nodes, unspecified Comparison: None. Findings: Both axilla were imaged. Only normal subcutaneous tissue could be seen. There were no cysts or masses. There are no air-fluid levels. There was swelling in both axilla. US/US soft tissue/extremity [id number] Impression: Swelling of both axilla with no subcutaneous masses or cysts.
--- NOTE | 2024-12-27 08:50 | US_ITS ---
WS: [id number] Bilateral subcutaneous ultrasound of the neck, 12/27/2024 Clinical Data: R59.0 - Localized enlarged lymph nodes Comparison: None. Findings: The neck showed normal subcutaneous tissue. There are normal lymph nodes noted bilaterally. There are no abnormal masses or cysts. No fluid-fluid levels were seen. US/US soft tissue head neck [id number] Impression: Negative bilateral subcutaneous ultrasound of the neck.
== END 2024-12-27 08:24 | disposition home or self-care (01) ==
LOC: RAD 08:24
PROVIDERS: PCP Family Medicine; Visit Provider Internal Medicine Rheumatology
DX: R59.0 Localized enlarged lymph nodes (principal); R93.89 Abnormal findings on diagnostic imaging of other specified body structures
CPT/HCPCS: 76536; 76882

== ENCOUNTER → 2024-12-28 08:06 | Outpatient (BNVA) | payer OTHER, MEDICAID, SELFPAY | PROVIDERS: PCP Family Medicine; Visit Provider Nurse Practitioner Family | DX: T81.40XA Infection following a procedure, unspecified, initial encounter (principal); L82.1 Other seborrheic keratosis; B07.8 Other viral warts; L29.89 Other pruritus; L53.8 Other specified erythematous conditions; X58.XXXA Exposure to other specified factors, initial encounter | CPT/HCPCS: 17110; 99213 ==

== ENCOUNTER → 2025-01-16 13:44 | Outpatient (BNVA) | payer OTHER, MEDICAID, SELFPAY | PROVIDERS: PCP Family Medicine; Visit Provider Internal Medicine Rheumatology | DX: Z09 Encounter for follow-up examination after completed treatment for conditions other than malignant neoplasm (principal); R76.8 Other specified abnormal immunological findings in serum; J96.01 Acute respiratory failure with hypoxia; G47.33 Obstructive sleep apnea (adult) (pediatric); M32.9 Systemic lupus erythematosus, unspecified; L25.9 Unspecified contact dermatitis, unspecified cause; U07.0 Vaping-related disorder | CPT/HCPCS: 99215 ==

== ENCOUNTER → 2025-01-22 13:11 | Outpatient (BNVA) | payer OTHER, MEDICAID, SELFPAY | PROVIDERS: PCP Family Medicine; Visit Provider Orthopaedic Surgery | DX: Z98.1 Arthrodesis status (principal) | CPT/HCPCS: 72100; 99213 ==

== ENCOUNTER 2025-01-25 07:37 | Oncology outpatient (recurring) (ONCR) | payer OTHER, MEDICAID, SELFPAY ==
--- NOTE | 2025-01-23 15:09 | N.ONRAD NP_ITS ---
Radiation Oncology New Patient Visit Patient: Lori Padron MR#: [id number] : 1980> Age: 44> Sex: Female> Dictated by: Dany Madison DO/MONICA BOTELLO Date of Service: 01/23/2025 Referring Physician(s) : Dr. AGUSTÍN GUTIERREZ Diagnosis: M05.69 MULTI-SITE RHEUMATOID ARTHRITIS,SLE, RA,FM, +dsDNA ANTIBODY, HIGH # Allergies, TNTC MEDICATIONS, ABSENT SEIZURE DISORDER REPORTED 3 YESTERDAY, VAPE LUNG INJURY STAGE: N/A DIAGNOSIS: M05.69 Radiotherapy to date: Summary > No prior radiation therapy. Chief Complaint / History of Present Illness: This is a pleasant 44-year-old morbidly obese female with diagnosis of S LE, RA, FM since 2021. She has had multiple treatments without success for her rheumatoid arthritis. She did notes pain in the hands but no significant visible arthritic changes noted in the hands. She is +dsDNA ANTIBODY . She has had 4 doses of rituximab with her next dose being in the a.m. She is also to have alpha-gel SYNDROME testing tomorrow. FAILED BENLYSTA, METHTREXATE, ANIFROLUMAB-FNIA, LEFLUNOMIDE, Current Medications: acetaminophen (Tylenol) 650 mg PO QID PRN albuterol sulfate 2.5 mg (3 mL) inhalation Q4H PRN atorvastatin 20 mg PO DAILY azathioprine 100 mg (2 x 50 mg) PO BID bumetanide 1 mg PO BID buspirone 30 mg PO BID clonazepam 1 mg PO BEDTIME dapagliflozin propanediol (Farxiga) 10 mg PO DAILY doxycycline hyclate 100 mg PO BID epinephrine (EpiPen 2-Edward) 0.3 mg (0.3 mL) IM Q15M PRN pdcgyruxdsg-rfyjtyzvl-putvrflm 100-62.5-25 mcg (Trelegy Ellipta) 1 inh inhalation DAILY gabapentin TAKE 1 TABLET BY MOUTH THREE TIMES DAILY hydroxychloroquine 200 mg PO BID hydroxyzine pamoate 50 mg PO QID PRN ibuprofen (Advil) 800 mg PO Q6H PRN insulin aspart U-100 (Novolog FlexPen U-100 Insulin aspart) 5 units (0.05 mL) SUBCUT TID insulin glargine (Lantus Solostar U-100 Insulin) INJECT 60 UNITS (0.6ML) SUBCUTANEOUSLY EVERY DAY isosorbide mononitrate ER 30 mg PO DAILY levothyroxine TAKE 1 TABLET BY MOUTH EVERY DAY levothyroxine TAKE 1 TABLET BY MOUTH EVERY DAY with 200mcg TO equal 225mcg lisinopril 40 mg PO BEDTIME meloxicam 15 mg PO DAILY montelukast (Singulair) 10 mg PO DAILY mupirocin 2% (Centany) 1 applic topical TID ondansetron 4 mg PO 3XD PRN oxcarbazepine (Trileptal) 600 mg PO BID oxycodone-acetaminophen 10-325 mg 1 tab PO Q6H PRN 30 days MDD 6 pantoprazole 40 mg PO BID rituximab-abbs 1,000 mg IV .[id number] sacubitril-valsartan 49-51 mg (Entresto) 1 tab PO BID tirzepatide (Mounjaro) 10 mg (0.5 mL) SUBCUT Q7D trazodone 200 mg PO BEDTIME valacyclovir (Valtrex) 1,000 mg PO TID vilazodone 10 mg PO QAM ziprasidone HCl 80 mg PO BID. Allergies: anifrolumab-fnia (From Saphnelo) Allergy (Severe, Verified 01/16/25 13:53) hives belimumab (From Benlysta) Allergy (Intermediate, Verified 01/16/25 13:53)rash and hives amoxicillin Allergy (Verified 01/16/25 13:53) ALGY-Rash bee venom protein (honey bee) Allergy (Verified 01/16/25 13:53) ALGY-Anaphylaxis cinnamon Allergy (Verified 01/16/25 13:53) anaphylactic desvenlafaxine (From Pristiq) Allergy (Verified 01/16/25 13:53)Unknown fluoxetine (From Prozac) Allergy (Verified 01/16/25 13:53) Unknown Latex, Natural Rubber Allergy (Verified 01/16/25 13:53) ALGY-Rash oxytocin (From Pitocin) Allergy (Verified 01/16/25 13:53) ADR-Itching Penicillins Allergy (Verified 01/16/25 13:53) ALGY-Hives Sulfa (Sulfonamide Antibiotics) Allergy (Verified 01/16/25 13:53) ALGY-Rash leflunomide Adverse Reaction (Intermediate, Verified 01/16/25 13:53) gastric Medical History: Asthma, bipolar disorder, depression, hypertension, hypothyroidism, insomnia, multinodular goiter, obsessive compulsive disorder, panic attacks, post traumatic stress disorder, type II diabetes, SLE, RA, FM, OSD, CPAP USE, RAYNAUD???S, FATIGUE, VAPE USE CURRENT, ROSACEA HX, SHILNGLES HX, COPD, FATTY LIVER, ABCESS LEFT THIGH INTERNAL, H/O HYPONATREMIACHRONIC LEUKOCYTOSIS, MORBID OBESITYGERD,HLD. Surgical History: Breast lumpectomy, caesarean section, cholecystectomy, thyroidectomy,LHR, HEART CATH, ANKLE SURGERY-LEFT, SPINAL FUSION and tonsillectomy. Family History: Father is alive having experienced hypertension. Mother is at age 54 having experienced chronic obstructive pulmonary disease, and hypertension, and ovarian cancer. Brother is alive. Social History: Last screened on 04/03/2021 ??? 52 PYSH QUIT 2021. CURRENTLY VAPES DAILY. Last screened on 04/03/2021 - Drinks occasionally. Patient indicated use of the following products: VAPE cigarettes. Current Complaints / Review of Systems: ABOVE. Vital Signs: Performed on 01/23/2025 1:46 PM BMI - 49.89 kg/m2 (high), Height - 65 in, Weight - 299.8 lbs, Temperature - 97.3 f, Pulse - 75 /min, Respiration - 18 /min, O2 Sat - 93 % (low), Pain - 8, Fatigue - 0 and BP - 121/ 75 mm(hg). Physical Exam: AAO x 3. Obese female hands w/o RA deformity. Multiple rings with appearing normal ROM for age. Extremity intact x 4. Performance Status: KPS 80 Pathology: RA- M05.69 +dsDNA Antibody Lab: Imaging: See HPI Impression: M05.69 MULTI-SITE RHEUMATOID ARTHRITIS,SLE, RA,FM, +dsDNA ANTIBODY, HIGH # Allergies, TNTC MEDICATIONS, ABSENT SEIZURE DISORDER REPORTED 3 YESTERDAY, VAPE LUNG INJURY STAGE: N/A DIAGNOSIS: M05.69 Plan: TREAT BL HANDS DISTAL TO WRIST JOINT XRT- 0.5 Gy/FX TO 6Gy CONSENT NEEDS SIGNED Signed by: 01/23/2025 3:08:55 PM <<Signature on File>> Time spent with patient/ 60 MINUTES: CPT Code: CPT Code:
[2025-01-24] MEDS: sodium chloride 0.9% 250 ML 75 ML IV (08:59)
[2025-01-24 09:00] VITALS: BP 110/73; PULSE 73; RESP 18; TEMP 36.4; O2SAT 92
[2025-01-24] MEDS: acetaminophen 325 mg Tablet 650 MG PO (09:05)
[2025-01-24] MEDS: methylPREDNISolone sod succ 125 mg/2 mL INJ IVP (09:06)
[2025-01-24] MEDS: diphenhydrAMINE 50 mg/mL SDV 1mL IVP (09:06)
[2025-01-24 09:41] LABS: Basophils # 0.1 10^3/uL (0.0-0.1); Eosinophils # 0.1 10^3/uL (0.0-0.8); Eosinophils % 0.9 %; Hematocrit 39.3 % (36-47); Lymphocytes # 1.2 10^3/uL (0.8-4.8); Lymphocytes % 13.1 %; Mean Corpuscular HGB Conc 32.6 g/dL (30-55); Mean Platelet Volume 10.2 fL (7.4-10.4); Monocytes # 0.5 10^3/uL (0.2-0.9); Monocytes % 5.6 %; Neutrophils # 7.16 10^3/uL (1.8-7.7); Neutrophils % 78.8 %; Nucleated Red Blood Cells % 0 %; Platelet Count 326 10^3/cmm (157-399); Red Blood Count 4.57 10^6/uL (3.85-5.65); Red Cell Distribution Width 13.9 % (12.1-15.1); White Blood Count 9.08 10^3/uL (3.29-11.43)
[2025-01-24 10:01] LABS: Alanine Aminotransferase 17 U/L (0-33); Albumin Level 4.3 g/dL (3.5-5.2); Alkaline Phosphatase 89 U/L (35-105); Aspartate Amino Transferase 17 U/L (0-32); C Reactive Protein 6.6 mg/L (0.0-4.9); Creatinine Clr Calc Pharmacy 170.9023; Globulin 2.8 g/dL (1.3-4.6); Glomerular Filtration Rate 109.6 mL/min (90-130); Total Bilirubin 0.2 mg/dL (0.15-1.2); Total Protein 7.1 g/dL (6.6-8.7)
[2025-01-24 10:04] LABS: Erythrocyte Sedimentation Rate 20 mm/hr (0-15)
[2025-01-24 10:10] VITALS: BP 101/62; PULSE 72; RESP 18; TEMP 36.6; O2SAT 91
[2025-01-24] MEDS: rituximab-abbs 1,000 MG in sodium chloride 0.9% 500 ML 50 MG IV (10:10)
[2025-01-24 10:38] VITALS: BP 123/70; PULSE 66; RESP 18; TEMP 36.8; O2SAT 93
[2025-01-24 11:15] VITALS: BP 123/74; PULSE 68; RESP 16; TEMP 34.1; O2SAT 93
[2025-01-24 11:45] VITALS: BP 131/76; PULSE 73; RESP 16; TEMP 36.8; O2SAT 91
[2025-01-24 16:34] VITALS: BP 131/79; PULSE 86; RESP 16; TEMP 37; O2SAT 94
[2025-01-31 15:54] LABS: Beef (27) IgE 0.47 kU/L; Beef Class 1; Lamb (F88) IgE 0.13 kU/L; Lamb Class 0/1; Pork (F26) IgE <0.10 kU/L; Pork Class 0
== END 2025-01-26 23:59 | disposition home or self-care (01) ==
PROVIDERS: Internal Medicine Rheumatology; PCP Family Medicine; Visit Provider Orthopaedic Surgery
DX: M05.69 Rheumatoid arthritis of multiple sites with involvement of other organs and systems (principal); M32.9 Systemic lupus erythematosus, unspecified; Z79.899 Other long term (current) drug therapy
CPT/HCPCS: 77280; 77307; 77334; 80076; 82565; 85025; 85651; 86003; 86008; 86140; 96365; 96366; 96375; J1200; J2919; J7040; J7050; J9999; Q5115

== ENCOUNTER 2025-02-06 09:37 | Outpatient (CLI) | payer OTHER, MEDICAID, SELFPAY ==
--- NOTE | 2025-02-06 09:45 | CTR_ITS ---
PROCEDURE INFORMATION: Exam: CT Lumbar Spine Without Contrast Exam date and time: 02/06/2025 9:46 AM Age: 44 years old Clinical indication: Low back pain; Prior surgery; Surgery date: 6+ months; Surgery type: Back in apr 2024; Continued back pain after surgery in Apr 2024; Additional info: Lumbar spine pain TECHNIQUE: Imaging protocol: Computed tomography of the lumbar spine without contrast. Radiation optimization: All CT scans at this facility use at least one of these dose optimization techniques: automated exposure control; mA and/or kV adjustment per patient size (includes targeted exams where dose is matched to clinical indication); or iterative reconstruction. COMPARISON: MR lumbar spine wo/w con 09/19/2024 RADIATION DOSE METRICS: Total DLP (mGy-cm): 1854 FINDINGS: No acute fracture, bone destruction, or other acute osseous abnormality of the lumbar spine or upper sacrum is identified. Prior posterior instrumentation at L4-L5 levels. Interbody implant is present at the L4-L5 disc space. Prior resection left L4 inferior facet. No high-grade stenosis of the lumbar spinal canal is suspected. Evaluation is suboptimal at the operative site due to artifact from hardware and absence of intrathecal contrast. No acute retroperitoneal hemorrhage identified. Postoperative changes involve the subcutaneous fat posteriorly, decreased compared to prior exam. Incidental note of a small intramuscular lipoma involving the right posterior paraspinous muscles at the L3-L5 levels, unchanged from prior exams. CT/CT lumbar spine wo con* [id number] IMPRESSION: No acute abnormality detected. Postoperative changes of the lumbar spine are again noted as described above.
== END 2025-02-06 09:38 | disposition home or self-care (01) ==
PROVIDERS: PCP Family Medicine; Visit Provider Orthopaedic Surgery
DX: M54.50 Low back pain, unspecified (principal); Z98.890 Other specified postprocedural states; D17.79 Benign lipomatous neoplasm of other sites
CPT/HCPCS: 72131

== ENCOUNTER 2025-02-07 07:57 | Oncology outpatient (recurring) (ONCR) | payer OTHER, MEDICAID, SELFPAY ==
--- NOTE | 2025-01-31 14:35 | ONCRAD TMN_ITS ---
Radiation Oncology Weekly Treatment Management Patient: Lori Padron MR#: [id number] : 1980 Attending Physician: Hima Madison Date of Service: 01/31/2025 Referring Physician(s) : Dr. Therese Garcia Diagnosis: M05.69 - Rheumatoid arthritis of multiple sites with involvement of other organs and systems, Diagnosed 08/29/2021 (Active) Radiotherapy to date: Course: LT HAND, Treatment Site: Lt Hand, Ref. ID: [id number], Energy: 6X, Dose/Fx (cGy): 50, #Fx: 4 / 6, Dose Correction (cGy): 0, Total Dose Delivered (cGy): 200, Start Date: 01/28/2025, End Date: 01/31/2025, Elapsed Days: 3 Course: RT HAND, Treatment Site: Rt Hand, Ref. ID: [id number], Energy: 6X, Dose/Fx (cGy): 50, #Fx: 4 / 6, Dose Correction (cGy): 0, Total Dose Delivered (cGy): 200, Start Date: 01/28/2025, End Date: 01/31/2025, Elapsed Days: 3 Reason for visit: The patient is being seen today as part of their regularly scheduled weekly on treatment visits to assess for acute toxicities from radiotherapy. Review of Systems: M05.69 MULTI-SITE RHEUMATOID ARTHRITIS,SLE, RA,FM, +dsDNA ANTIBODY, HIGH # Allergies, TNTC MEDICATIONS, ABSENT SEIZURE DISORDER REPORTED 3 YESTERDAY, VAPE LUNG INJURY, EXOGENOUS OBESITY STAGE: N/A DIAGNOSIS: M05.69 Weekly treatment visit today. Patient's states she is not had any pain relief. Based on patient history and review of records I doubt that this is going to be of benefit to her. We will see her back in 1 month or sooner if need be. Vital Signs: Performed on 01/31/2025 2:20 PM BMI - 49.89 kg/m2 (high), Height - 65 in, Weight - 299.8 lbs, Temperature - 97.9 f, Pulse - 80 /min, Respiration - 18 /min, O2 Sat - 94 % (low), Pain - 0, Fatigue - 0 and BP - 128/ 92 mm(hg)(/high). Physical Exam: [id number]. No voiced complaints. Skin intact. No swelling or obvious tenderness in the BL Hands. Imaging: Radiation therapy imaging related to accurate target localization (i.e. KV, MV and CBCT) was reviewed. Appropriate changes, if any, were made to ensure treatment accuracy. Plan: Cont XRT. Will complete course of XRT on TuesdayFebruary 04. RTC in 1 month or sooner if need be. Signed by: Hima Madison 01/31/2025 2:33:28 PM
--- NOTE | 2025-02-05 12:29 | N.ONRD TS_ITS ---
Radiation Oncology Treatment Summary Patient: Lori Padron MR#: [id number] : 1980 Age: 44 Sex: Female Dictated by: Dr. Bush Date of Service: 02/05/2025 Referring Physician(s) : Dr. Therese Garcia Diagnosis: M05.69 - Rheumatoid arthritis of multiple sites with involvement of other organs and systems, Diagnosed 08/29/2021 (Active) Radiotherapy to Date: Course: LT HAND, Treatment Site: Lt Hand, Ref. ID: [id number], Energy: 6X, Dose/Fx (cGy): 50, #Fx: 6 / 6, Dose Correction (cGy): 0, Total Dose Delivered (cGy): 300, Start Date: 01/28/2025, End Date: 02/04/2025, Elapsed Days: 7 Course: RT HAND, Treatment Site: Rt Hand, Ref. ID: [id number], Energy: 6X, Dose/Fx (cGy): 50, #Fx: / 6, Dose Correction (cGy): 0, Total Dose Delivered (cGy): 300, Start Date: 01/28/2025, End Date: 02/04/2025, Elapsed Days: 7 Clinical Summary: The patient tolerated RT well. Plan: End of treatment today. Follow PRN Signed by: Dr. Gerber Bush>02/05/2025 12:28:04 PM <<Signature on File>>
[2025-02-07] MEDS: sodium chloride 0.9% 500 ML 75 ML IV (09:35)
[2025-02-07] MEDS: methylPREDNISolone sod succ 125 mg/2 mL INJ IVP (09:37)
[2025-02-07] MEDS: acetaminophen 325 mg Tablet 650 MG PO (09:38)
[2025-02-07] MEDS: diphenhydrAMINE 50 mg/mL SDV 1mL IVP (09:43)
[2025-02-07 10:45] VITALS: BP 100/66; PULSE 75; RESP 17; TEMP 36.2; O2SAT 93
[2025-02-07] MEDS: rituximab-abbs 1,000 MG in sodium chloride 0.9% 500 ML 70 MG IV (10:45)
[2025-02-07 14:16] VITALS: BP 148/91; PULSE 94; RESP 18; TEMP 36.4; O2SAT 94
== END 2025-02-07 23:59 | disposition home or self-care (01) ==
PROVIDERS: PCP Family Medicine; Visit Provider Radiology Radiation Oncology
DX: M32.9 Systemic lupus erythematosus, unspecified (principal); Z79.899 Other long term (current) drug therapy; Z79.620 Long term (current) use of immunosuppressive biologic
CPT/HCPCS: 77280; 77336; 77412; 96375; 96413; 96415; 99024; J1200; J2919; J7040; J9999; Q5115

== ENCOUNTER → 2025-02-12 10:46 | Outpatient (BNVA) | payer OTHER, MEDICAID, SELFPAY | PROVIDERS: PCP Family Medicine; Visit Provider Internal Medicine | DX: E11.42 Type 2 diabetes mellitus with diabetic polyneuropathy (principal); Z79.4 Long term (current) use of insulin; E27.8 Other specified disorders of adrenal gland; E89.0 Postprocedural hypothyroidism; E11.9 Type 2 diabetes mellitus without complications; E78.2 Mixed hyperlipidemia; R53.83 Other fatigue | CPT/HCPCS: 99214 ==

== ENCOUNTER 2025-04-09 12:49 | Oncology outpatient (recurring) (ONCR) | payer OTHER, MEDICAID, SELFPAY | END 2025-04-28 23:59 | disposition home or self-care (01) | LOC: ONCMED 12:50 | PROVIDERS: PCP Family Medicine; Visit Provider Radiology Radiation Oncology | DX: Z53.9 Procedure and treatment not carried out, unspecified reason (principal) ==

== ENCOUNTER 2025-04-10 13:36 | Emergency (ER) | payer OTHER, MEDICAID, SELFPAY ==
--- OUTSIDE RECORDS SUMMARY | 2025-03-12 06:30 | XMS_ITS ---
Author Organization [facility] Address [address] [place] [address] Care Team Providers Care Choir Accompanist Name Role Phone Hattie BYRNE, Elan Primary Care Provider Unavailab Sung Lopez Unavailable [phone] Farshad Ordaz Unavailable [phone] REASON FOR VISIT shortness of breath Encounters Encounter Location Date Provider Diagnosis [facility] [address] [place] [address] [place] [address] 03/12/2025 Farshad Ordaz Shortness of breath R06.02 ; Chronic hypoxic respiratory failure J96.11 and KI (obstructive sleep apnea) G47.33 Assessments Encounter Date Diagnosis (ICD Code) Assessment Notes Treatment Notes Treatment Clinical Notes Section Notes 03/12/2025 Shortness of breath (ICD-10 - R06.02) She is being evaluated by a technical planner in [facility]. I am here as a backup in [...] Obtain copies of sleep study records from [place]. Patient to continue BiPAP. 03/12/2025 Fabio Portillo, Jocelyn Rogel am scribing for, and in the presence of Dr. Farshad Ordaz. I, Dr. Farshad Ordaz, personally performed the services described in this documentation, as scribed by Jocelyn Rogel in my presence, and it is both accurate and complete. Plan Of Treatment Treatment Notes Assessment Notes Shortness of breath She is being evaluat ed by a technical planner in [facility]. I am here as a backup in [...] under PFT. KI (obstructive sleep apnea) Obtain helicopter crew chief ies of sleep study records from [place]. Patient to continue BiPAP. Next Appt Details Provider Name:Farshad Ordaz, 04/11/2025 01:40:00 PM, [address] [place] [address] DR ACKERMAN, [place], [phone], History and Physical Notes * HPI (History of Present Illness) Category Sub-Category Detail Notes Category Not es Provider Note The patient is a 44-year-old female referred for evaluation and management of shortness of breath. She was seen by a technical planner in [facility] in [place] and was diagnosed to have asthma COPD [...] revealing pulmonary hypertension. She has seen a strickler attendant within the last 3 years because of [...] 09, 2024; 5 mth f/u -Sleep study [facility] [place] 08/17/16 AHI 16.8 with 119 minutes of [...] with marilu ropriate affect Progress Notes * GUZMÁNMILTON IDOB:1979 (44 yo F)Acc No.[id number]:03/12/2025 Progress Notes Patient: MILTON MONTGOMERY I Provider: Kevin Ordaz MD :1980 A ge:44 Y S ex:Female Date:03/12/2025 Address:[address] [place], [place] [phone] Pcp:Elan Kuhn MD Subjective: * Chief Complaints: * S hortness of breath * HPI: P rovider Note: The patient is a 44-year-old female referred for evaluation and management of shortness of breath.? She was seen by a technical planner in [facility] in [place] and was diagnosed to have asthma COPD [...] revealing pulmonary hypertension. She has seen a strickler attendant within the last 3 years because of [...] 09, 2024; 5 mth f/u -Sleep study [facility] [place] 08/17/16 AHI 16.8 with 119 minutes of [...] Obtain copies of sleep study records from [place]. Patient to continue BiPAP. 4. O thers Clinical Notes:IJocelyn, am scribing for, and in the presence of Dr. Farshad Ordaz. I, Dr. Farshad Ordaz, personally performed the services described in this documentation, as scribed by Jocelyn Rogel in my presence, and it is both accurate and complete. Billing Information: * Procedure Codes: Care Plan Details* * Electronic signature of Tahira Ordaz MD on 04/10/2025 at 09:42 PM CDT Sign off status: Pending * Provider: Kevin Ordaz MD Date: 0 03/12/2025 Generated for Ricki huston/Ronnie/Marga on: 0 04/10/2025 09:42 PM CDT
--- OUTSIDE RECORDS SUMMARY | 2025-04-04 23:59 | XMS_ITS | Continuity of Care Document ---
Author Name [facility] Address [address] [place] [address] Organization [facility] Care Team Providers Care Building Custodian Name Role Phone [facility] Unavailable Unavailable Problems Problem Status Onset Date Problem Type Date of Resolution Comments Source Disorder of hip joint (disorder) 04/02/2025 Diagnosis Surgical follow-up (finding) 04/02/2025 Diagnosis Past history of procedure (context-dependent category) 03/29/2025 Diagnosis Pain (finding) 10/04/2024 Diagnosis Leukocytosis (disorder) Active Condition Unspecified sprain of left hip, initial encounter Active Diagnosis Sprain of left hip (disorder) Diagnosis Disorder of hip joint (disorder) Diagnosis Fall on ice (finding) Diagnosis Active movement, function (observable entity) Diagnosis Place of occurrence of accident or poisoning, street (environment) Diagnosis Injury due to exposure to external cause (disorder) Diagnosis Asthma (disorder) Diagnosis Obstructive sleep apnea syndrome (disorder) Diagnosis Type II diabetes mellitus without complication (disorder) Diagnosis Long-term current use of oral hypoglycemic medication Diagnosis Long-term current use of drug therapy (situation) Diagnosis Systemic lupus erythematosus (disorder) Diagnosis Gastroesophageal reflux disease without esophagitis (disorder) Diagnosis Obesity (disorder) Diagnosis Body mass index 40+ - severely obese (finding) Diagnosis Allergies, Adverse Reactions, Alerts Substance Category Reaction Severity Reaction type Status Date Reported Comments Source amoxicillin Assertion Rash Drug allergy Active [facility] penicillin Assertion Drug allergy Active [facility] Pitocin Assertion Drug allergy Active [facility] sulfa drugs Assertion Rash Drug allergy Active [facility] Latex Assertion Allergy to substance Active [facility] desvenlafaxi ne Assertion Chest tightness, Anxiety state, Agitation Drug allergy Active [facility] Pristiq Assertion Drug allergy Active [facility] cinnamon Assertion Food allergy Active [facility] Benlysta Assertion Hives Drug allergy Active [facility] Saphnelo Assertion Hives Drug allergy Active [facility] Alpha-gal (alpha-D-gal actosidase) Assertion Allergy to substance Active [facility] cinnamon<sup >1</sup> Assertion Severe Food allergy Active [facility]aphylact [facility] sulfADIAZINE Assertion Drug allergy Active [facility] Results Order Name Results Value Reference Range Date Interpretation Comments Source XR Hip Right w Pelvis XR Hip Right w Pelvis XR General Diagnostic Accession # Exam Date/Time Procedure Ordering Provider [id number] 04/04/2025 10:02 CDT XR Hip (w or wo Pelvis) Brody Parsons MD Right Reason For Exam (XR Hip (w or wo Pelvis) Right) s/p labral reconstructi on 3 view Report EXAMINATION: XR Hip Right w Pelvis INDICATION: s/p labral reconstructi on 3 view VIEWS: Pelvis 2 views and right lateral hip COMPARISON: October 04, 2024 FINDINGS: No fracture. Hip joint spaces preserved. Pelvic ring intact. Fusion hardware of L4-L5. IMPRESSION: Postoperativ e right hip with preserved joint space. I have personally reviewed the images and attest to the contents of this report. * * *Final Report* * * Electronical ly Signed by: Galen BYRNE, Wilian Martínez Signed on: 04/04/25 10:18 04/04 09:49 :08 [facility] CLINIC SITE LAB RESULTS Point of Care Glucose (Nurse Documented) 76 mg/dL 70 - 110 03/13 14:37 :00 [facility] CLINIC SITE LAB RESULTS POC U hCG (Rals) Negative *NA* (03/13/25 8:51 AM) 03/13 13:51 :00 [facility] XR C-Arm XR C-Arm XR General Diagnostic Accession # Exam Date/Time Procedure Ordering Provider [id number] 03/13/2025 13:54 CDT XR C-Arm Sangita BYRNE, Maynor Reason For Exam (XR C-Arm) surgery Report OR C-arm case. Exam performed. No report to be issued. I have personally reviewed the images and attest to the contents of this report. * * *Final Report* * * Electronical ly Signed by: Toby_ GUILLERMINA [email or web address] Signed on: 03/13/25 13:59 03/13 09:36 :10 [facility] MRI Hip Right MRI Hip Right MRI/MRA Accession # Exam Date/Time Procedure Ordering Provider [id number] 10/29/2024 14:45 [employer] [employer] MRI Hip Right Brody Parsons MD Reason For Exam (MRI Hip Right) Right Labral Tear Eval Report EXAMINATION: MRI right hip with contrast INDICATION: Right Labral Tear Eval. TECHNIQUE: An MRI of the right hip was performed following the fluoroscopic guided intra-articu lar injection of 9 mL of a (1:200) dilution of MultiHance in sterile saline, omnipaque 300, and 1% lidocaine. Please see separate dictation for details of the procedure. A multi-planar multi-sequen ce MR examination was then performed using a multi-coil array. Small jhdoq-vc-aha w coronal short T1 and T2 weighted images, sagittal proton density, axial and oblique axial T1 weighted images were obtained. Additional large nykgi-nm-lbz w images were obtained of the entire pelvis.. COMPARISON: Right hip radiograph 10/04/2024 FINDINGS: Right hip: There is truncation of the labrum overall with slight heterogeneit y in the anterosuperi or labral signal. There is additional linear signal extending through the labrum at approximatel y the 3 o'clock position (straight anterior), lower than typical anterosuperi or labral tears, with adjacent iliopsoas bursal fluid/contra st. Articular cartilage is maintained. Left hip: Physiologic joint fluid. No paralabral cyst or high-grade cartilage loss. Other joints: Symphysis pubis and sacroiliac joints are congruent with only minimal degenerative change. Lower lumbar spine: Postoperativ e changes from prior lumbar instrumentat ion and fusion with fluid signal adjacent to the anterior aspect of the presumed L5 vertebral body. The remainder of the spine is suboptimally assessed secondary to hardware artifact. Muscle/tendo ns: Correlating with a calcific focus overlying the right greater trochanter on prior radiograph, there is a focus of low signal on the large jevzn-sa-jin w coronal images (series 400 image 15) with adjacent surrounding soft tissue edema and focal intramuscula r edema of the inferior aspect gluteus medius, most consistent with calcific tendinosis. To a lesser degree, there is additional intramuscula r fluid signal within the contralatera l gluteus medius without low signal foci to suggest calcificatio ns at this level. No luzma trochanteric bursitis on the left. Small amount of trochanteric bursal fluid on the right. Muscle bulk is normal. Left hamstring tendinopathy and low-grade partial-thic kness tendon tearing. Right hamstring tendinopathy without significant tendon tear. Other: 3.3 cm right ovarian simple cyst, for which follow-up is not indicated. Pelvis otherwise unremarkable . MRI/MRA Report IMPRESSION: 1. Labral blunting and anterosuperi or labral fraying with probable focal tear of the anterior labrum at the 3 o'clock position. Adjacent iliopsoas bursitis. Findings could be related to iliopsoas impingement. 2. Right gluteal calcific tendinopathy with moderate adjacent soft tissue edema. 3. Mild edema in the left gluteus medius muscle distally without tendon tear or focal low signal to suggest calcific tendinopathy on that side. 4. Left greater than right hamstring tendinopathy with left-sided partial-thic kness tearing. I have personally reviewed the images and attest to the contents of this report. * * *Final Report* * * Electronical ly Signed by: Tona Maharaj MD Signed on: 10/29/24 23:11 10/29 14:19 :39 [facility] XR Arthrogram Hip Right XR Arthrogram Hip Right XR General Diagnostic Accession # Exam Date/Time Procedure Ordering Provider [id number] 10/29/2024 14:16 [employer] XR Arthrogram Hip Right Brody Parsons MD Reason For Exam (XR Arthrogram Hip Right) R Hip Labral Tear Report EXAMINATION: Right hip joint injection under fluoroscopic guidance INDICATION: R Hip Labral Tear. History of prior left hip labral tear status post surgery ATTENDING PRESENCE: Dr. Tona Maharaj, the attending radiologist, performed the procedure. TECHNIQUE: The risks, benefits and alternatives were discussed and informed consent was obtained. Prior to beginning the procedure, [place] Protocol was performed to confirm the patient's identity and the planned procedure. Fluoroscopy time 16.3 seconds The patient was placed supine on the fluoroscopy table. The right hip joint was localized with fluoroscopic guidance. The skin was prepped and draped in standard sterile fashion. Local anesthesia was achieved with subcutaneous injection of 1% lidocaine. A 22-gauge needle was then introduced into the joint under fluoroscopic guidance with an oblique approach. 0.5 mL of Omnipaque 300 was injected to verify intra-articu lar position of the needle tip. A 9 mL mixture derived from a 10 mL mixture containing 0.05 mL MultiHance, 5 mL sterile saline, 4 mL Omnipaque-30 0, and 1 mL lidocaine 1% was then injected into the joint. The needle was removed. The skin was cleansed with hydrogen peroxide, and a bandage was placed. Patient was taken to the MR suite. FINDINGS: Fluoroscopic images confirm intra-articu lar position of the needle tip and contrast in the joint. Calcificatio n adjacent to the greater trochanter of the hip, with volume possibly slightly decreased since the prior radiographs from 10/04/2024. Preprocedura l pain score was 6 out of 10. Postprocedur al pain score was 7 out of 10. IMPRESSION: 1. Successful right hip contrast injection under fluoroscopic guidance prior to MR arthrogram, dictated under a separate accession. 2. Slight increase in patient pain after intra-articu lar lidocaine injection. I have personally reviewed the images and attest to the contents of this report. * * *Final Report* * * Electronical ly Signed by: Carol Ann BYRNE, Tona Benson Signed on: 10/29/24 15:32 10/29 13:39 :52 [facility] XR Hip Right w Pelvis XR Hip Right w Pelvis XR General Diagnostic Accession # Exam Date/Time Procedure Ordering Provider [id number] 10/04/2024 12:21 [place] [employer] XR Hip (w or wo Pelvis) Brody Parsons MD Right Reason For Exam (XR Hip (w or wo Pelvis) Right) pain Report EXAMINATION: XR Hip Right w Pelvis INDICATION: pain VIEWS: 4 COMPARISON: January 16, 2024 FINDINGS: L4-5 fusion hardware. Mild osteoarthrit is of the right hip. Calcific tendinosis in the right gluteal tendons, unchanged. IMPRESSION: Right gluteal calcific tendinosis. Mild right hip osteoarthrit is. I have personally reviewed the images and attest to the contents of this report. * * *Final Report* * * Electronical ly Signed by: Yris Thompson MD Signed on: 10/04/24 12:49 10/04 12:03 :01 [facility] Consultation Notes Results Value Date Source Orthopaedic Clinic Note Visit Date: 04/04/2025 ID: 44 Years old Female Date of Procedure: March 13, 2025 Name of Procedure: Right Hip Arthroscopy, Labral Reconstruction, Femoroplasty, Synovectomy, Capsular Plication Interim History: Mrs. Guzmán is a 44 year old female who is accompanied by her for her three week post op appointment. She enters today's appointment wearing her t-scope hip brace and using a wheelchair for ambulation. States she uses her crutches when outside the house but is weight bearing at home. She rates her pain 6/10. She states she is sleeping on and off due to the discomfort as she is a side sleeper. She states she is no longer taking narcotic pain medication for her hip as she has returned to her baseline. She continues to take Tylenol and Ibuprofen as needed. She has begun organized physical therapy at [facility]. She is compliant with brace wear and a home exercise program. She has not returned to driving and will not until fully weight bearing. 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 She continues to use the ice machine as she states it really helps with discomfort. She states that she has an instability type of feeling when she is weight bearing some of the time. She states she is having left hip radicular type pain. She does state that her right side pain has been so much better than her left side pain. She states she received a nerve block for her left but not for her right. She states she would like to proceed with a Tummy Tuck when it is safe to do so. Her and her wanted to express that they love coming to [facility] for the great care and great service. However, when she was kept overnight and stayed on [facility] third floor the nurse that they were assigned was extremely rude and completely uncaring. Her name is Nevin and she answered her Ascom and replied that she couldn't help because she was stuck in this patient's room. Physical exam: Vital Signs: Temperature 36.2 (04/04/25 09:44) Pain Score 6 (04/04/25 09:44) The patient is alert and well-oriented with appropriate mood. In no apparent distress. The patient's gait is steady and stable. Skin: Right Hip: dressings removed for examination, incisions appear intact without drainage, sutures were removed without difficulty and incision remain well-approximated, skin intact, no steri-strips applied, 2x2 and Tegaderm applied. There are no signs of infection such as erythema, drainage, dehiscence, swelling, tenderness or feeling of local warmth. Edema: Mild Present Ecchymosis: None Present Motor: Right Hip, Neurovascularly intact. Intact flexion and extension to the below-mentioned degrees of motion. Distal motor function for ankle dorsiflexion and plantarflexion. Sensation to light touch is intact for distal foot distributions.. Motion: Right Hip Tested, Flexion: 105 degrees Extension: 30 degrees Strength: Right Hip, can perform straight leg raise and seated marching Vascular: Toes pink, toes warm, cap refill: less than 3 seconds Imaging / diagnostic studies: Right hip/pelvis three view: Postoperative right hip with preserved joint space, per radiologist interpretation. One incisional pic below. Assessment: Patient is 3 weeks status post Right Hip arthroscopy Labral Reconstruction, Femoroplasty, Synovectomy, Capsular Plication. Plan: Patient's incisions were clean, dry and intact. They were removed without difficulty. Patient will continue with immobilization with T-scope hip brace for 1-2 weeks due to the labral reconstruction and fully weight bearing. She has already began organized physical therapy in [place] according to Dr. Parsons's hip arthroscopy protocol. Patient placed in abduction pillow for two weeks of night time wear, Will wear abduction brace set to limit 90 degrees flexion, Should begin CPM and PT 2-3 days post op, DVT ppx given ASA 81 BID, Naproxen 500 BID given for HO prevention, Multimodal pain medication given, TWB 2-3 Weeks, Brace work until crutches DC at 3-4 weeks post op, FU 2 weeks. Postoperative antibiotics: 24 hours Ancef, admit post op obs, DVT prophylaxis: ASA 81 BID, Postoperative activity: TWB per hip scope protocol, Modalities: Ice and elevation as needed for operative extremity, The patient should receive multimodal pain medication with Tylenol, ibuprofen, and oxycodone for breakthrough, Follow-up: The patient may remove their dressings on postoperative day #5 and begin showering thereafter. They will not immerse the wound underwater, as in a bathtub or swimming pool, until after suture removal and complete wound healing has occurred. They will keep the incision covered with a fresh clean and dry dressing on a daily basis thereafter. The patient will return to clinic on postoperative week 2 for wound check and suture removal. We will then see them back on postoperative week 6. We will continue following every 6 to 12 weeks thereafter until healed. I discussed the patient's surgical procedure as well as anticipated early outcomes with the patient's family/companions immediately following the case. Patient will be on Naproxen 500 BID for HO prophylaxis and not take any other NSAIDs during this time. Losartan 12.5 mg BID for 2 weeks to prevent labral-capsular adhesions. She will return for post operative visit in three weeks at which time she will see Dr. Parsons. She will not need x-rays at that appointment. We did not refill any medication prescriptions at this time. She will continue to take Tylenol or Ibuprofen as needed. Patient has been given my number and email for any questions or concerns prior to his next appointment. All questions and concerns have been answered at this time. Patient would like a release to be able to undergo her abdominal surgery. Adela Yi M.Ed, BSN, RN, LAT, ATC, OTC Physician Banquet Waiter/Waitress to Dr. Brody Parsons [facility] Images Incisional Pic 04/04/2025 Orthopaedic Clinic Note Patient returns today after popping one of her stitches yesterday. Overall wound is well. No significant drainage or signs of purulence or infection. She was prescribed Bactrim double strength twice daily yesterday but has not yet picked it up. On our examination we removed the pop sutures and gently lavaged the area with normal saline flushes. Wound was cleaned with good signs of prior healing. A Steri-Strip was placed over the slightly open area and it was dressed with dry dressing. No need for surgical intervention. She can continue with normal postop hip arthroscopy precautions. 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 She will return to clinic as scheduled and alert us if any issues arise. She can do dressing change as needed and intermittently leave the incision open to air. All question answered. 03/22/2025 Op/Procedure Note PREOPERATIVE DIAGNOS IS: 1 . Right Hip Labral Tear, Combined Femoroacetabular Impingement Syndrome 2. Right hip labral deficiency with calcified labrum 3. Obestiy (modifier should be applied due to obesity) POSTOPERATIVE DIAGNOSIS: same OPERATIVE PROCEDURES: Right Hip Arthroscopy, Labral Reconstruction, Femoroplasty, Synovectomy, Capsular Plication 22 modifier: case was complex because of patient comorbidities such as obesity as well as labral deficiency requiring labral reconstruction. This required 100% more effort and took 2 more hours of surgery. Capsule was also clsoe requiring 4 stitches OPERATIVE INFORMATION: SURGEON: Brody Parsons MD, Marv SLOT MACHINE REPAIRER: Gracy Smith ATC, Fred Quesada MD ANESTHESIA: General Endotracheal with local capsular block TRACTION/TOURNIQUET: 93 minutes FLUIDS: EVELINA ESTIMATE BLOOD LOSS: Minimal URINE OUTPUT: None IMPLANTS: 1.4 mm PEEK Suture [place] x 7, xbraid suture x 4 DRAINS: None COMPLICATIONS: None CONDITION: Stable to recover PACU then discharge home when PACU discharge criteria met. INDICATIONS FOR PROCEDURE: The patient is a 43F with complaints of intractable right hip pain. The clinical history, physical examination, and imaging studies are consistent with hip labral tear and underlying femoroacetabular impingement syndrome. The patient tried and failed non-surgical treatment. The risks, benefits, and alternative treatments were discussed with the patient including but not limited to bleeding, blood clots, infection, nerve injury, vascular injury, anesthetic/medical complications, chondrolysis/osteoarthritis, adhesions, heterotopic ossification, and instability. The patient understood the risks and desires to proceed with right hip arthroscopy, labral repair vs. reconstruction vs. debridement, acetabular rim trimming, femoral osteochondroplasty, capsular plication. OPERATIVE FINDINGS: Labral tear: Labral deficient from 11 to 3 oclock with minimal labral tissue and labral calcification Chondral injury: Delamination from 12 to 3 oclock Pincer deformity: Large CAM deformity: Moderate Capsule: instability requiring T-Type capsulotomy and Plication using 4 stitches. DESCRIPTION OF PROCEDURE: The patient was greeted in the pre-operative holding area and the correct lower extremity was identified as the operative limb. The patient underwent general endotracheal anesthesia. The leg was placed in a lower extremity suspension table with a suspension pad and bilateral feet and prepped and draped in standard surgical fashion. Under fluoroscopic visualization, a standard anterolateral (AL) portal is established penetrating the capsule at the 12-o c lock position. While viewing from the AL portal, needle localization was used to establish a modified anterior portal (MAP) with an outside-in technique, penetrating the capsule at the 2-o c lock position. An interportal capsulotomy was performed using an arthroscopic scalpel to connect the AL portal (12-o c lock position) to the anterior portal (2-o’clock position) leaving a cuff of capsular tissue on the acetabular side to close at the conclusion of the case. The capsulolabral recess was reflected to expose the pincer deformity of the acetabular rim. Using of a 5.5-mm arthroscopic cylindrical misa, acetabular rim trimming was performed to remove the pincer deformity. Patients labrum was then investigated and found to be severely calcified and deficient. There was not adequate labrum tissue remaining to perform a labral repair thus decision was made to perform a labral reconstruction. A tibialis anterior allograft was prepared on the back table by myself and my diploma dental assistant. With the arthroscope in the MAP, 8.5mm cannula was placed in the AL portal and the drill guide was positioned to pass the posterior most anchor at 11 oclock. The camera was then moved to the AL portal and a DALA was established. A cannula was placed in the MMAP portal. Anterior most anchor was placed. The defect was sized and measured to 3.7 cm. An additional 5 anchors were placed from anterior to posterior for a total of 7 alternating between tape and suture for color variability. Accessory modified proximal medial protal was placed for suture management and sutures from anchors were retrieved and parked here. A passing stitch from the anterior most and posterior most anchor were retrieved via the DALA portal. The graft was trimmed and brought to the field. Free needle was used to load the anterior posterior aspect of the graft and mulberry knots were tied. The graft was shuttled into the joint. The anteriormost mulberry knot was then retrieved and tied to its corresponding stitch anchoring the labral reconstruction anteriorly. Sequential passing at time of the sutures then proceeded from anterior to posterior for total of 6 anchors. There was excellent appearance labral reconstruction once this was finalized. Final debridement was performed to remove any loose debris from the graft. The 4.0mm arthroscopic shaver was inserted to debride the unstable portions of the articular cartilage surface. The hip was flexed to 20 degrees and the arthroscope was placed in the extra-articular space. The interval between the gluteus minimus and the iliocapsularis was identified. With the arthroscope in the anterior portal, a Wissinger geraldo was placed through the DALA portal, and a 5.0-mm cannula was placed over the geraldo. The arthroscopic scalpel was placed through the cannula and used to perform the vertical portion of the T-capsulotomy from the transverse capsulotomy to the intertrochanteric line through the hua orbicularis. The borders of the iliocapsularis and gluteus minimus were identified, and the T-capsulotomy was extended distally until the capsular reflection. The capsular cut should be perpendicular to the iliofemoral ligament made along the center of the femoral neck. The fluoroscope and HipCheck system was utilized to identify the CAM deformity as well as the proximal extent of the osteochondroplasty. Using the arthroscopic bur, a femoral osteochondroplasty was performed from the lateral synovial folds (12 o?clock) to the medial synovial folds (6 o c lock). Dynamic examination and fluoroscopic imaging confirms that the entire CAM deformity has been excised and no evidence of impingement. Capsular plication of the capsulotomy was performed with suture shuttling device. With the arthroscope in the anterior portal, the vertical portion of the T-capsulotomy was closed with numerous high-strength sutures. The shuttling suture device was inserted from the working portal and retrieved to ensure proper soft tissue tension. After osteochondroplasty, the capsular redundancy needs to be plicated in order to prevent joint instability which has been shown to result in better patient reported outcomes in the Orthopaedic literature. We used an ultrahigh m olecular weight polyethylene sutures and tied them to plicate the vertical portion of the iliofemoral ligament. Once the vertical portion of the iliofemoral ligament has been plicated, the interportal capsulotomy was addressed. The capsular closure device was placed through the working portal and a suture was passed from the acetabular leaflet to the femoral leaflet. The stitch was then tensioned and tied using arthroscopic techniques. When the capsule was been completely plicated, the femoral head articular cartilage was no longer be visible. A total of 4 sutures was used. The wounds were closed with 2-0 monocryl to close the subcutaneous tissue and 3-0 prolene to close the skin. Sterile dressing was then applied. Sponge, needle, instrument count was correct. The patient was awakened from anesthesia and transferred to PACU. The respiratory equipment assistant was involved in all aspects of the surgery including positioning, prepping, draping, leg holding, assistance with arthroscope, dynamic examination, and wound closure. The attending surgeon was present for all critical portions of the procedure. Plan Patient placed in abduction pillow for two weeks of night time wear Will wear abduction brace set to limit 90 degrees flexion Should begin CPM and PT 2-3 days post op DVT ppx given ASA 81 BID Naproxen 500 BID given for HO prevention Multimodal pain medication given TWB 2-3 Weeks Brace work until crutches DC at 3-4 weeks post op FU 2 weeks 1. Postoperative antibiotics: 24 hours ancef, admit post op obs 2. DVT prophylaxis: ASA 81 BID 3. Postoperative activity: TWB per hip scope protocol 4. Modalities: Ice and elevation as needed for operative extremity 5. The patient should receive multimodal pain medication with tylenol, ibuprofen, and oxycodone for breakthrough 6. Follow-up: The patient may remove their dressings on postoperative day #5 and begin showering thereafter. They will not immerse the wound underwater, as in a bathtub or swimming pool, until after suture removal and complete wound healing has occurred. They will keep the incision covered with a fresh clean and dry dressing on a daily basis thereafter. The patient will return to clinic on postoperative week 2 for wound check and suture removal. We will then see them back on postoperative week 6. We will continue following every 6 to 12 weeks thereafter until healed. 7. I discussed the patient's surgical procedure as well as anticipated early outcomes with the patient's family/companions immediately following the case. 8. Patient will be on Naproxen 500 BID for HO prophylaxis and not take any other NSAIDs during this time 9. Losartan 12.5 mg BID for 2 weeks to prevent labral-capsular adhesions Due to their age, activity level, and injury I do believe that they could benefit from NMES/TENS unit postoperatively. I am recommending this to prevent atrophy as well as to improve postoperative recovery and decrease postoperative pain. Nerves intact. I have made this recommendation. Our team will talk to them in the preoperative holding area about adding this to the postoperative recovery. 03/13/2025 Orthopaedic Clinic Note Chief Complaint History of Present Illness 44-year-old female with right hip known to me. Unfortunately we recently had to cancel her surgery due to some medical conditions including pulmonary hypertension, congestive heart failure as well as obesity. Our anesthesia team deemed it unsafe for her to undergo elective surgery at the current time. We are having a telehealth visit today to discuss the status of her chronic medical conditions and discuss weight loss strategies to make her a more appropriate candidate for elective surgery. She states that her congestive heart failure was diagnosed in last year or so and is under control with medications. 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 She is attempting to work on weight loss but unfortunately her hip pain and other musculoskeletal issues have prevented her from doing so. Unfortunately the issues with her weight have made her quite depressed although she is feeling better with regards to this. She was overall relatively frustrated with the experience but does understand where we were coming from with the safety issue Review of Systems Physical ExamVitals and Measurements Not performed Clinic Procedure Assessment/Plan 44-year-old female status post left hip arthroscopy with labral reconstruction with ongoing right hip pain and labral deficiency as well as morbid obesity and a host of other comorbid conditions. I did explain to her that I completely understand her frustration but unfortunately her chronic medical conditions as well as her weight make her high risk for an elective surgical procedure and currently she is not appropriately medically optimized. I did discuss that some of these are modifiable risk factors that we can work towards improving prior to surgical intervention to hopefully give her the best possible outcome and prevent complications from surgery. Also did remind her that her last surgery was a rather lengthy recovery and did take almost 1 to 1-1/2 years to really recover from. We will continue to work on medical clearance and help her optimize her weight but at this time I would not recommend she undergo elective surgery especially given the fact that her anesthesia team does not deem her fit for elective surgery center. Unfortunately her surgery is complex enough that this is not appropriate to be done at the [facility] and needs to be done at our orthopedic specialty [place]. Will continue to work towards medical optimization. All questions answeredDictated with Dragon, low heel builder variances and typographical errors may occurVisit Type: PHONEDuration: 30 minConsent: Verbal consent for this phone visit was obtained from patient or guardian prior to beginning this encounter. Risks (privacy and security, lack of examination) and benefits (reduced exposure to infectious disease, convenience) of using the phone were reviewed and addressed prior to beginning this encounter. Provider location at time of service: Onsite (Hospital Clinic or Office) Problem List/Past Medical HistoryOngoingLeukocytosis Procedure/Surgical HistoryPortacath placement right Service Date: 10/29/2024Left Hip Arthroscopy, Labral Reconstruction, Femoroplasty, Synovectomy, Capsular Plication Service Date: 05/20/2023Removal of [place] TeethJaw wiringUterine ablationCesarean section [id number] breast lumpectomyThyroidectomyTonsillectomy and adenoidectomy Medicationsacetaminophen(acetaminophen 500 mg oral tablet), 1000 mg= 2 Tablet(s), Oral, q8h, PRN acetaminophen-oxyCODONE(acetaminophen-oxycodon e 325 mg-10 mg oral tablet) albuterol(albuterol HFA 90 mcg/inh inhalation aerosol) atorvastatin(atorvastatin 20 mg oral tablet), 20 mg= 1 Tablet(s), Oral, Daily azaTHIOprine(azaTHIOprine 50 mg oral tablet), 2 mg/kg, Oral, bid bumetanide(bumetanide 1 mg oral tablet) busPIRone(busPIRone 10 mg oral tablet), 10 mg= 1 Tablet(s), Oral, bid dapagliflozin(Farxiga 10 mg oral tablet) docusate(docusate sodium), 100 mg, Oral, Daily fluticasone/umeclidinium/vilanterol(Trelegy Ellipta), Inhalation, Daily folic acid(folic acid 1 mg oral tablet), 1 mg= 1 Tablet(s), Oral, Daily gabapentin(gabapentin 100 mg oral capsule) hydroxychloroquine(hydroxychloroquine 200 mg oral tablet), 200 mg= 1 Tablet(s), Oral, bid hydrOXYzine(hydrOXYzine hydrochloride 25 mg oral tablet), 50 mg= 2 Tablet(s), Oral, bid isosorbide mononitrate(isosorbide mononitrate 30 mg oral tablet, extended release) levothyroxine, 25 mcg, Oral, Daily levothyroxine(levothyroxine 200 mcg (0.2 mg) oral tablet), 200 mcg= 1 Tablet(s), Oral, Daily montelukast(montelukast 10 mg oral tablet), 10 mg= 1 Tablet(s), Oral, Daily ondansetron(ondansetron 4 mg oral tablet) OXcarbazepine(OXcarbazepine 600 mg oral tablet), 600 mg= 1 Tablet(s), Oral, bid pantoprazole(pantoprazole 40 mg oral delayed release tablet), 40 mg= 1 Tablet(s), Oral, bid predniSONE(predniSONE 10 mg oral tablet), 20 mg= 2 Tablet(s), Oral, Daily, PRN sacubitril-valsartan(Entresto 49 mg-51 mg oral tablet) tirzepatide(Mounjaro (tirzepatide) 2.5 mg/0.5 mL subcutaneous solution) traZODone(traZODone 100 mg oral tablet), 100 mg= 1 Tablet(s), Oral, At Bedtime ziprasidone(ziprasidone 80 mg oral capsule), 80 mg= 1 capsule(s), Oral, bid AllergiesBenlysta Hives Latex Pitocin Pristiq Saphnelo Hives amoxicillin Rash cinnamon desvenlafaxine Chest tightness, Anxiety state, Agitation penicillin sulfa drugs Rash Social HistorySmoking StatusCurrent every day smoker Family History ImmunizationsVaccineDateStatus SARS-CoV-2 (COVID-19) mRNA-1273 vaccine 05/08/2021 Recorded SARS-CoV-2 (COVID-19) mRNA-1273 vaccine 04/10/2021 Recorded Health Maintenance Lab Results Diagnostic Results Visit Information Attending Physician: Brody Parsons MD Visit Date: 12/06/2024 12/06/2024 Orthopaedic Clinic Note Chief Complaint Right Hip Follow-Up History of Present Illness Ms. Guzmán is a 44 year old female returning to clinic to follow-up on a recent MRI of his right hip. She continues to localize her pain deep within the groin with minor pain on the lateral aspect of the hip. She is interested in surgical intervention of possible Review of Systems Constitutional Confirms: None Denies:Cough, Fever, Chills,SweatsMusculoskeletal Confirms: Joint Pain Denies:Muscle Aches, Muscle WeaknessNeurologic Confirms: None Denies:Weakness,Numbness/Tingling Physical ExamVitals and MeasurementsT: 36.1 C General: Patient is alert and oriented in no apparent distress. Right HipThey walk with stable gait. While lying supine, on exam of the right hip, they have extension to 0 degrees, flexion to 90 degrees, external rotation to 45 degrees, and internal rotation to 0 degrees. On provocative examination, there is a positive subspine, positive trochanteric pain sign, positive KERRI, positive FADIR, with a painful arc from 1-3 o'clock. There is no tenderness over the ASIS, hip flexor, iliac crest, ischium, or SI joint. Mild tenderness over the ASIS and greater trochanter. There is no tenderness over the adductor, pubic tubercle or pain with resisted adduction. Patient is distally, neurovascularly intact. Assessment/Plan 1. Right Hip Labral TearMs. Nereida is a 44 year old female returning to clinic to follow-up on her right hip. MRI and clinical findings were discussed with the patient. We discussed that she has a small labral tear within the hip that is likely causing her pain. I explained that surgical intervention for this procedure would be the same as we preformed on her left side. We discussed the risks, benefits, and recovery timeline for this procedure including her history of prolonged healing based on the timeline of her previous procedure. She verbalized understanding of this discussion and would like to continue with consenting and scheduling surgery.The risks, benefits, and alternatives were explained to the patient in detail today. Specific risks included, but are not limited to: the risk of infection, bleeding and blood loss, nerve or blood vessel injury, fracture, hardware failure or malfunction, poor bone or soft tissue healing, poor wound healing, postsurgical pain and/or stiffness, anesthesia complications, Covid-19 complications, need for further surgery in the future and loss of life or limb. No guarantees were given. The patient exhibited understanding and would like to proceed with surgery. Consent was obtained today.I did review with her that similar to her contralateral side she likely suffering from either labral tear or labral insufficiency due to her large pincer lesion. Reminded her that last surgery took her almost 1 year to fully recover from. She does have reasonable expectations with regards to this. Risks benefits and alternatives were discussed. She would like to move forward with surgery which would consist of right hip arthroscopy, labral pair versus reconstruction, acetabuloplasty, femoroplasty, capsular closure, all indicated procedures. Risks benefits and alternatives were reviewed and discussedAll questions were answered and patient was encouraged to call should needs arise.This document was scribed for Dr. Brody Parsons by Kathy Santoyo, on 10/29/24 15:42:06Attending AddendumI have reviewed the kathy's note, which was documented in my presence, in its entirety and it accurately reflects my service for this date of service. I have also edited the note as I saw fit and added pertinent findings where needed within the body of the note. Problem List/Past Medical HistoryOngoingLeukocytosis Procedure/Surgical History Medicationsacetaminophen(acetaminophen 500 mg oral tablet), 1000 mg= 2 Tablet(s), Oral, q8h, PRN acetaminophen-oxyCODONE(acetaminophen-oxycodon e 325 mg-10 mg oral tablet) albuterol(albuterol HFA 90 mcg/inh inhalation aerosol) amphetamine-dextroamphetamine(amphetamine-dext roamphetamine 15 mg oral capsule, extended release), 15 mg= 1 capsule(s), Oral, qAM aspirin(aspirin 81 mg oral EC tablet delayed release), 81 mg= 1 Tablet(s), Oral, bid atorvastatin(atorvastatin 20 mg oral tablet), 20 mg= 1 Tablet(s), Oral, Daily belimumab(Benlysta 200 mg/mL subcutaneous solution), 200 mg belimumab(Benlysta 200 mg/mL subcutaneous solution), 200 mg brexpiprazole(Rexulti 2 mg oral tablet), 2 mg= 1 Tablet(s) brexpiprazole(Rexulti 1 mg oral tablet), 1 mg= 1 Tablet(s) bumetanide(bumetanide 1 mg oral tablet) busPIRone(busPIRone 10 mg oral tablet), 10 mg= 1 Tablet(s), Oral, bid docusate(docusate sodium), 100 mg, Oral, Daily doxycycline(doxycycline hyclate 100 mg oral tablet), 100 mg= 1 Tablet(s) fluticasone/umeclidinium/vilanterol(Trelegy Ellipta), Inhalation, Daily folic acid(folic acid 1 mg oral tablet), 1 mg= 1 Tablet(s), Oral, Daily furosemide(furosemide 20 mg oral tablet), 20 mg= 1 Tablet(s), Oral, Daily gabapentin(gabapentin 100 mg oral capsule) hydroxychloroquine(hydroxychloroquine 200 mg oral tablet), 200 mg= 1 Tablet(s), Oral, bid hydrOXYzine(hydrOXYzine hydrochloride 25 mg oral tablet), 50 mg= 2 Tablet(s), Oral, bid hydrOXYzine(hydrOXYzine hydrochloride) isosorbide mononitrate(isosorbide mononitrate 30 mg oral tablet, extended release) levothyroxine levothyroxine(levothyroxine 200 mcg (0.2 mg) oral tablet), 200 mcg= 1 Tablet(s), Oral, Daily LORazepam(LORazepam 1 mg oral tablet), 1 mg= 1 Tablet(s) losartan(losartan 25 mg oral tablet), 25 mg= 1 Tablet(s), Oral, bid melatonin metFORMIN(metFORMIN 500 mg oral tablet) methotrexate(methotrexate 2.5 mg oral tablet), 2.5 mg= 1 Tablet(s) minocycline(minocycline 100 mg oral capsule), 100 mg= 1 capsule(s), bid montelukast(montelukast 10 mg oral tablet), 10 mg= 1 Tablet(s), Oral, Daily ondansetron(ondansetron 4 mg oral tablet) OXcarbazepine(OXcarbazepine 600 mg oral tablet), 600 mg= 1 Tablet(s), Oral, bid pantoprazole(pantoprazole 40 mg oral delayed release tablet), 40 mg= 1 Tablet(s), Oral, bid predniSONE(predniSONE 10 mg oral tablet), 20 mg= 2 Tablet(s), Oral, Daily sacubitril-valsartan(Entresto 49 mg-51 mg oral tablet) semaglutide(Ozempic (1 mg dose) 4 mg/3 mL subcutaneous solution), 1 mg, Subcutaneous, qWeek traZODone(traZODone 100 mg oral tablet), 100 mg= 1 Tablet(s), Oral, At Bedtime ziprasidone(ziprasidone 80 mg oral capsule), 80 mg= 1 capsule(s), Oral, bid ziprasidone(ziprasidone 20 mg oral capsule) AllergiesBenlysta Hives Latex Pitocin Pristiq Saphnelo Hives amoxicillin Rash cinnamon desvenlafaxine Chest tightness, Anxiety state, Agitation penicillin sulfa drugs Rash Social HistorySmoking StatusCurrent every day smoker Family History ImmunizationsVaccineDateStatus SARS-CoV-2 (COVID-19) mRNA-1273 vaccine 05/08/2021 Recorded SARS-CoV-2 (COVID-19) mRNA-1273 vaccine 04/10/2021 Recorded Health Maintenance Lab Results Diagnostic ResultsMRI of the right hip was obtained today and independently interpreted by myself today. This demonstrated:1. diminutive labrum with small labral tear2. gluteal tendinosis Visit Information Attending Physician: Brody Parsons MD Visit Date: 10/29/2024 10/29/2024 Orthopaedic Clinic Note Chief Complaint right hip pain History of Present Illness 44-year-old female well-known to me seeing us today for right hip pain. She has been having pain for over a year that began with a fall last August. We performed a hip labral reconstruction on her left side in April 2023. That side is now doing extraordinarily well. In the interim since her last visit she has had to have surgery on her left ankle as well as her lumbar spine. She had an additional fall at the beginning of August which recreated pain in the right hip similar to her left hip before surgery. She explains the pain is deep and searing and white hot within the joint. She also has some lateral based hip pain which is chronic in nature. She has done home exercises for the last 6 weeks without relief. She has an [id number] pain medications. She has not yet had any advanced imaging or injections. Additionally she has been having some frequent falls which her neurologist thinks could be due to some type of seizure type events. She has some additional testing scheduled in mid September to further explore this. Review of Systems ROS: Constitutional: no cough, no fever, no night sweats, no chills, weight, normal exercise Skin: no new mole, no change in color of skin, skin, no rash Head, ears, eyes, throat: no dry eyes, no irritation of the eyes, no vision changes Respiratory: no wheezing, no shortness of breath, no coughing up of blood Cardiovascular symptoms: no chest pain, no arm pain upon exertion, no palpitations, no shortness of breath, no known heart murmur Neck symptoms: no swollen glands, no neck stiffness Gastrointestinal symptoms:no abdominal pain, no vomiting, appetite, no change in the stool Genitourinary symptoms: no urinary loss of control, no changes in urinary habits, urinary frequency, no blood in urine (hematuria), emptying, no trouble urinating Musculoskeletal symptoms: positive joint pain Neurological symptoms: no loss of consciousness, no weakness Psychological symptoms no depression, no junito Physical Exam Vitals and Measurements Right lower extremity: Nontender ASIS, mild tenderness greater troches. Flexion to 90 with positive subspine, external rotation 10, internal rotation 0. Positive KERRI, positive FADIR, pain from 1-3 o'clock. Otherwise distal neurovascularly intact in the extremity. Clinic Procedure 4 views of the right hip were obtained today shows tendinitis of her gluteal tendons she has a lateral center edge angle of 40 she has an alpha angle of 48. There is lumbar fusion hardware visualized. Otherwise relatively well-maintained joint space without significant osteoarthritis. This is my clinical interpretation. Assessment/Plan Pain 44-year-old female with right hip pincer morphology and ongoing pain. She has undergone home exercises for approximately 6 weeks with continuation of pain. I reviewed treatment options including formal physical therapy, MRI, injection. We will move forward with an MRI arthrogram and I will see her back to discuss the results as well as next steps in treatment. She also has an ongoing seizure type workup going on which I told her would need to be resolved prior to any surgical intervention. Dictated with Alisa, low heel builder variances and typographical errors may occur Ordered: XR Hip Right w Pelvis, Radiology Protocol, pain, 10/04/24 11:58:00 [employer]INT [employer], Routine, ambulatory, Orig Ref Doc Russell Han, Pain Problem List/Past Medical History Ongoing Leukocytosis Procedure/Surgical History Medications acetaminophen(acetaminophen 500 mg oral tablet), 1000 mg= 2 Tablet(s), Oral, q8h, PRN acetaminophen-oxyCODONE(acetaminophen-oxycodon e 325 mg-10 mg oral tablet) albuterol(albuterol HFA 90 mcg/inh inhalation aerosol) amphetamine-dextroamphetamine(amphetamine-dext roamphetamine 15 mg oral capsule, extended release), 15 mg= 1 capsule(s), Oral, qAM aspirin(aspirin 81 mg oral EC tablet delayed release), 81 mg= 1 Tablet(s), Oral, bid atorvastatin(atorvastatin 20 mg oral tablet), 20 mg= 1 Tablet(s), Oral, Daily belimumab(Benlysta 200 mg/mL subcutaneous solution), 200 mg belimumab(Benlysta 200 mg/mL subcutaneous solution), 200 mg brexpiprazole(Rexulti 2 mg oral tablet), 2 mg= 1 Tablet(s) brexpiprazole(Rexulti 1 mg oral tablet), 1 mg= 1 Tablet(s) bumetanide(bumetanide 1 mg oral tablet) busPIRone(busPIRone 10 mg oral tablet), 10 mg= 1 Tablet(s), Oral, bid docusate(docusate sodium), 100 mg, Oral, Daily doxycycline(doxycycline hyclate 100 mg oral tablet), 100 mg= 1 Tablet(s) fluticasone/umeclidinium/vilanterol(Trelegy Ellipta), Inhalation, Daily folic acid(folic acid 1 mg oral tablet), 1 mg= 1 Tablet(s), Oral, Daily furosemide(furosemide 20 mg oral tablet), 20 mg= 1 Tablet(s), Oral, Daily gabapentin(gabapentin 100 mg oral capsule) hydroxychloroquine(hydroxychloroquine 200 mg oral tablet), 200 mg= 1 Tablet(s), Oral, bid hydrOXYzine(hydrOXYzine hydrochloride 25 mg oral tablet), 50 mg= 2 Tablet(s), Oral, bid hydrOXYzine(hydrOXYzine hydrochloride) isosorbide mononitrate(isosorbide mononitrate 30 mg oral tablet, extended release) levothyroxine levothyroxine(levothyroxine 200 mcg (0.2 mg) oral tablet), 200 mcg= 1 Tablet(s), Oral, Daily LORazepam(LORazepam 1 mg oral tablet), 1 mg= 1 Tablet(s) losartan(losartan 25 mg oral tablet), 25 mg= 1 Tablet(s), Oral, bid melatonin metFORMIN(metFORMIN 500 mg oral tablet) methotrexate(methotrexate 2.5 mg oral tablet), 2.5 mg= 1 Tablet(s) minocycline(minocycline 100 mg oral capsule), 100 mg= 1 capsule(s), bid montelukast(montelukast 10 mg oral tablet), 10 mg= 1 Tablet(s), Oral, Daily ondansetron(ondansetron 4 mg oral tablet) OXcarbazepine(OXcarbazepine 600 mg oral tablet), 600 mg= 1 Tablet(s), Oral, bid pantoprazole(pantoprazole 40 mg oral delayed release tablet), 40 mg= 1 Tablet(s), Oral, bid predniSONE(predniSONE 10 mg oral tablet), 20 mg= 2 Tablet(s), Oral, Daily sacubitril-valsartan(Entresto 49 mg-51 mg oral tablet) semaglutide(Ozempic (1 mg dose) 4 mg/3 mL subcutaneous solution), 1 mg, Subcutaneous, qWeek traZODone(traZODone 100 mg oral tablet), 100 mg= 1 Tablet(s), Oral, At Bedtime ziprasidone(ziprasidone 80 mg oral capsule), 80 mg= 1 capsule(s), Oral, bid ziprasidone(ziprasidone 20 mg oral capsule) Allergies Benlysta Hives Latex Pitocin Pristiq Saphnelo Hives amoxicillin Rash cinnamon desvenlafaxine Chest tightness, Anxiety state, Agitation penicillin sulfa drugs Rash Social History Smoking Status Current every day smoker Family History Immunizations Vaccine Date Status SARS-CoV-2 (COVID-19) mRNA-1273 vaccine 05/08/2021 Recorded SARS-CoV-2 (COVID-19) mRNA-1273 vaccine 04/10/2021 Recorded Health Maintenance Lab Results Diagnostic Results Visit Information Attending Physician: Brody Parsons MD Referring Physician: Russell Han MD Original Referring Provider: Russell Han MD Visit Date: 10/04/2024 10/04/2024 History and Physicals Results Value Date Source History and Physical Please see the belo w note by Dr. Jaqueline BYRNE, Brody Braswell. No significant changes have occurred since the patient was last seen in the office within 30 days. Orthopaedic Admission Note Result type: Pre-anesthesia Note Result date: March 12, 2025 09:50 CDT Result status: In Progress Result title: Consult Note Performed by: Enoc MADRID, Sherice Jett on March 12, 2025 11:51 CDT Encounter info: [id number], [facility], Outpatient in a Bed, 03/13/2025 - * Preliminary Report * Chief Complaint RIGHT HIP ARTHROSCOPY, ACETABULOPLASTY, LABRAL REPAIR VERSUS RECONSTRUCTION WITH TIBIALIS ANTERIOR ALLOGRAFT, FEMORAL OSTEOCHONDROPLASTY, CAPSULAR CLOSURE, ALL PROCEDURES DEEMED MEDICALLY NECESSARY 03/13/25 [place] 0951 SPOKE W/DR. ANGEL, PT WAS CLEARED FOR BERNADETTE PER DR. POZO Reason for Consultation RIGHT HIP PAIN Requesting Provider Jaqueline BYRNE, Brody Braswell History of Present Illness Right Hip Labral Tear Ms. Guzmán is a 44 year old female returning to clinic to follow-up on her right hip. MRI and clinical findings were discussed with the patient. We discussed that she has a small labral tear within the hip that is likely causing her pain. I explained that surgical intervention for this procedure would be the same as we preformed on her left side. We discussed the risks, benefits, and recovery timeline for this procedure including her history of prolonged healing based on the timeline of her previous procedure. She verbalized understanding of this discussion and would like to continue with consenting and scheduling surgery. [1] [1] Review of Systems [facility] 03/12/25@1110 spoke w/pt Anesthesia History: Denies problems with anesthesia PRIOR 05/20/23 NO ISSUES NOTED ON ANES RECORD DIFFICULT IV PLEASE USE PORT WITH THIS SURGERY WOKE UP WITH A SEVERE ANXIETY ATTACK Family Anesthesia History: Denies family history of problems with anesthesia Constitutional: Denies recent hospitalization BMI 53.34 (on 11/29/24 @ [facility]), 47.1 now HEENT: Denies recent URI Respiratory: Shortness of breath and/or cough at baseline , Asthma/COPD overlap , Obstructive sleep apnea requiring BiPAP , Chronic hypoxemic respiratory failure , Pulmonary hypertension , PULMONOLOGY NOTE IN COPMMUNITY VIEW Cardiovascular: _ _ _ _ _ Well-controlled hypertension , HLD _ Heart failure without recent problems - NYHA III chronic diastolic heart failure - on farxiga, entresto, isosorbide and bumetanide , _ _ Pulmonary hypertension ON FARXIGA INS LAST DOSE ON 03/07/25 states had mild heart attack in Aug 2024 from stress , chest pressure at times Gastrointestinal: _ _ Uncontrolled GERD/Acid Reflux - severe heartburn for the last 2wks happened before and needed gi cocktail , Denies liver problems Genitourinary: Denies kidney disease. Gynecological: LMP: _irregular , N/A reason: Uterine Ablation Hematology/Lymphatic/Malignancy: Unspecified anemia _ _ Denies history of coagulation disorder , Currently taking any form of anti-coagulant or anti-platelet? No If yes, _ Endocrine: Hypothyroidism, treated , Non-insulin dependent diabetes, well-controlled - ON MOUNJARO INSTRUCTED LAST DOSE ON 02/26/25 Metabolic/Genetic Disorders: _ Allergy/Immunologic: Autoimmune disease, please explain - SLE on prednisone prn flares, hydroxychloroquine Musculoskeletal: _ _ _ Chronic pain Skin: Denies rashes, wounds, or skin lesions _ Latex Allergy Neurologic/Psychiatric: _ Well-controlled seizure disorder. - absence seizures , Significant psychiatric disease history. Implanted devices:_ hardware lumbar spine, portcath Activity level: I can do light housework but tire easily Physical Exam Vital Signs (most recent within last year) Temperature 36.1 (10/29/24 14:59) Pain Score 8 (10/29/24 14:59) Measurements Documented in Past 12 Months Height (cm): 167.64 cm (02/20/25) Weight (kg): 132.449 kg (02/20/25) BMI: 47.1 kg/m2 (02/20/25) Problem List/Past Medical History Ongoing Leukocytosis SLE (lupus) Hypothyroid HTN NYHA III chronic diastolic heart failure Pulmonary hypertension Chronic hypoxemic respiratory failure KI with CPAP Asthma/COPD overlap GERD Chronic pain anemia absence seizures Obesity - BMI 53.34 (on 11/29/24 @ [facility]) BMI 47.1 now diabetes new diagnosis of alpha gal Procedure/Surgical History Portacath placement right Service Date: 10/29/2024 Left Hip Arthroscopy, Labral Reconstruction, Femoroplasty, Synovectomy, Capsular Plication Service Date: 05/20/2023 Removal of [place] Teeth Jaw wiring Uterine ablation section x2 Cholecystectomy Right breast lumpectomy Thyroidectomy Tonsillectomy and adenoidectomy Medications Home acetaminophen(acetaminophen 500 mg oral tablet), 1000 mg= 2 Tablet(s), Oral, q8h, PRN acetaminophen-oxyCODONE(acetaminophen-oxycodon e 325 mg-10 mg oral tablet) albuterol(albuterol HFA 90 mcg/inh inhalation aerosol) atorvastatin(atorvastatin 20 mg oral tablet), 20 mg= 1 Tablet(s), Oral, Daily azaTHIOprine(azaTHIOprine 50 mg oral tablet), 2 mg/kg, Oral, bid bumetanide(bumetanide 1 mg oral tablet) busPIRone(busPIRone 10 mg oral tablet), 10 mg= 1 Tablet(s), Oral, bid dapagliflozin(Farxiga 10 mg oral tablet) docusate(docusate sodium), 100 mg, Oral, Daily fluticasone/umeclidinium/vilanterol(Trelegy Ellipta), Inhalation, Daily folic acid(folic acid 1 mg oral tablet), 1 mg= 1 Tablet(s), Oral, Daily gabapentin(gabapentin 100 mg oral capsule) hydroxychloroquine(hydroxychloroquine 200 mg oral tablet), 200 mg= 1 Tablet(s), Oral, bid hydrOXYzine(hydrOXYzine hydrochloride 25 mg oral tablet), 50 mg= 2 Tablet(s), Oral, bid isosorbide mononitrate(isosorbide mononitrate 30 mg oral tablet, extended release) levothyroxine, 25 mcg, Oral, Daily levothyroxine(levothyroxine 200 mcg (0.2 mg) oral tablet), 200 mcg= 1 Tablet(s), Oral, Daily montelukast(montelukast 10 mg oral tablet), 10 mg= 1 Tablet(s), Oral, Daily ondansetron(ondansetron 4 mg oral tablet) OXcarbazepine(OXcarbazepine 600 mg oral tablet), 600 mg= 1 Tablet(s), Oral, bid pantoprazole(pantoprazole 40 mg oral delayed release tablet), 40 mg= 1 Tablet(s), Oral, bid predniSONE(predniSONE 10 mg oral tablet), 20 mg= 2 Tablet(s), Oral, Daily, PRN sacubitril-valsartan(Entresto 49 mg-51 mg oral tablet) tirzepatide(Mounjaro (tirzepatide) 2.5 mg/0.5 mL subcutaneous solution) traZODone(traZODone 100 mg oral tablet), 100 mg= 1 Tablet(s), Oral, At Bedtime ziprasidone(ziprasidone 80 mg oral capsule), 80 mg= 1 capsule(s), Oral, bid Allergies Benlysta Hives Latex Pitocin Pristiq Saphnelo Hives amoxicillin Rash cinnamon desvenlafaxine Chest tightness, Anxiety state, Agitation penicillin sulfa drugs Rash Social History Smoking Status Current every day smoker Diagnostic Results (10/29/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 Labral blunting and anterosuperior labral fraying with probable focal tear of the anterior labrum at the 3 o'clock position. Adjacent iliopsoas bursitis. Findings could be related to iliopsoas impingement. 2. Right gluteal calcific tendinopathy with moderate adjacent soft tissue edema. 3. Mild edema in the left gluteus medius muscle distally without tendon tear or focal low signal to suggest calcific tendinopathy on that side. 4. Left greater than right hamstring tendinopathy with left-sided partial-thickness tearing. [2] (10/04/2024 12:21 ARROW POINT ATT[employer]ER XR Hip (w or wo Pelvis) Right) FINDINGS: L4-5 fusion hardware. Mild osteoarthritis of the right hip. Calcific tendinosis in the right gluteal tendons, unchanged. IMPRESSION: Right gluteal calcific tendinosis. Mild right hip osteoarthritis. [3] [2] [1-2] Consult Note; Sherice Stubbs RN 11/20/2024 11:16 CDT 03/13/2025 Vital Signs Vital Sign Value Date Comments Source Temperature (Celsius) 36.1 Stefania 10/29/2024 20:59:00 [facility] Encounters Location Location Details Encounter Type Encounter Number Reason For Visit Attending Provider ADM Date DC Date Status Source [facility] Surgical Between Visit [id number] 09/24 14:06 :52 09/25 05:59 :59 [facility] [id number] Brody Parsons 10/04 17:13 :38 10/05 05:59 :59 [facility] Outpatient [id number] Brody Parsons 10/29 18:41 :18 10/30 05:59 :59 [facility] [id number] Brody Parsons 10/29 20:54 :23 10/30 05:59 :59 [facility] [place] [facility] Surgical Between Visit [id number] 11/12 13:11 :51 11/13 04:59 :59 [facility] [place] [facility] Non-Admit [id number] Brody Chongjean 11/20 19:52 :23 11/21 04:59 :59 [facility] [place] PreReg [id number] Brody Chongjean 11/21 11:00 :00 01/21 04:59 :59 [facility] [place] [facility] Nurse Phone Call Clinic [id number] Matt Montano 11/21 12:26 :23 11/22 04:59 :59 [facility] Surgical Between Visit [id number] 11/22 16:30 :59 11/23 04:59 :59 [facility] [place] [facility] Surgical Virtual Care [id number] Brody Chongjean 12/06 16:45 :46 12/07 04:59 :59 [facility] [place] [facility] Surgical Between Visit [id number] 12/07 14:21 :21 12/08 04:59 :59 [facility] [place] [facility] Surgical Between Visit [id number] 12/18 12:55 :42 12/19 04:59 :59 [facility] [place] [facility] Medicine Surgical Between Visit [id number] 12/25 13:55 :37 12/26 04:59 :59 [facility] [place] [facility] Surgical Between Visit [id number] 01/07 12:49 :23 01/08 04:59 :59 [facility] [place] [facility] Sports Medicine Surgical Between Visit [id number] 01/22 17:16 :47 01/23 04:59 :59 [facility] [place] [facility] Surgical Between Visit [id number] 01/24 13:24 :45 01/25 04:59 :59 [facility] Non-Admit [id number] Brody Parsons 03/12 19:58 :26 03/13 04:59 :59 [facility] Nurse Phone Call Clinic [id number] Matt Montano 03/13 12:48 :33 03/14 04:59 :59 [facility] Outpatient in a Bed [id number] Maynor Dickinsonu 03/13 13:30 :46 03/14 15:46 :00 [facility] Surgical Between Visit [id number] 03/21 16:55 :06 03/22 04:59 :59 [facility] Surgical Between Visit [id number] 03/22 15:49 :35 03/23 04:59 :59 [facility] Sports Medicine Surgical Between Visit [id number] 03/22 15:51 :05 03/23 04:59 :59 [facility] Alternative Clinic Clinic [id number] Brody Parsons 03/22 16:27 :59 03/23 04:59 :59 [facility] Sports Medicine Non Surgical Clinic [id number] Brody Parsons 04/04 14:38 :37 04/05 04:59 :59 [facility] Procedures Procedure Code Date Perfomer Comments Source Portacath placement right 2024 06:00:00 [facility] Removal of [place] Teeth [facility] Jaw wiring [facility] Uterine ablation [facility] section x2 [facility] Cholecystectomy [facility] [place] Right breast lumpectomy [facility] Thyroidectomy [facility] Tonsillectomy and adenoidectomy [facility] Plan of Care Plan of Care Date Source No data available for this section 04/05/2025 [facility] No data available for this section 03/23/2025 [facility] No data available for this section 03/22/2025 [facility] Social History Social History Date Source No data available for this section 04/05/2025 [facility] No data available for this section 03/23/2025 [facility] No data available for this section 03/22/2025 [facility] No data available for this section 03/14/2025 [facility] No data available for this section 03/14/2025 [facility] No data available for this section 03/13/2025 [facility] [place] No data available for this section 01/25/2025 [facility] No data available for this section 01/23/2025 [facility] No data available for this section 01/21/2025 [facility] No data available for this section 01/08/2025 [facility] No data available for this section 12/26/2024 [facility] No data available for this section 12/19/2024 [facility] No data available for this section 12/08/2024 [facility] No data available for this section 12/07/2024 [facility] No data available for this section 11/23/2024 [facility] No data available for this section 11/22/2024 [facility] No data available for this section 11/21/2024 [facility] [place] No data available for this section 11/13/2024 [facility] No data available for this section 10/30/2024 [facility] No data available for this section 10/05/2024 [facility] No data available for this section 09/25/2024 [facility]
[2025-04-10] VITALS (7 sets, daily range): BP systolic 114–129; BP diastolic 74–85; PULSE 63–86; RESP 18; TEMP 36.8; O2SAT 94–98
--- OUTSIDE RECORDS SUMMARY | 2025-04-10 13:40 | XMS_ITS | Continuity of Care Document ---
Author Name [facility] Organization [facility] Care Team Providers Care Field Property Loss Specialist Name Role Phone [facility] Unavailable Unavailable Problems Combined list of problems from Department of Defense and Veterans Affairs facilities. It does not include entries that were removed or entered in error. Problem Status Onset Date Problem Type Date of Resolution Comments Source feared medical condition not demonstrated Inactive Condition at 22+6 wks, no uterine contractions monitored, irregular uterine irritability noted on monitor strip [facility] OBESITY MORBID Active Condition stead u wt with only 4 lb wt gain overall DoD BIPOLAR I DISORDER, MOST RECENT EPISODE, DEPRESSED Active Condition stable presently DoD UTERINE SCAR FROM PREVIOUS DELIVERY Active Condition Desires repeat c/s DoD visit for: exam high-risk with poor OB history Active Condition 20+3 wks - d oing well - moving out of area DoD Supervision Of Normal Active Condition 19+3 wks - FWBA with doptone in the 140-150's. DoD nausea with vomiting Active Condition Unknown etiolog y - viral etiology? negative serum ketone and normal electrolyte panel. 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 It does not include entries that were removed or entered in error. Substance Category Reaction Severity Reaction type Status Date Reported Comments Source OXYTOCIN Drug allergy (disorder) Unknown active 09/02/2004 [facility] [place] PROZAC (FLUOXETINE HCL) Drug allergy (disorder) Anaphylaxis active 01/05/2005 [facility] [place] [place] Encounters Combined list of: 1) Encounters from Department of Veterans Affairs facilities going backup to the last 18 months, not all VA inpatient encounters are included; 2) Encounters from the Department of Defense facilities going backup to 280 months. Location Location Details Encounter Type Encounter Number Reason For Visit Attending Provider ADM Date DC Date Status Disposition Source [place] [employer] [place] [facility] [place] TELE CONSULT [id number] refill KORINA LOFTON P 11/27 [place] [facility] [place] [place] [place] [facility] [place] TELE CONSULT [id number] request ing a lab order KORINA LOFTON P 12/28 [place] [employer] [place] [place] [employer] [place] [facility] [place]) OUTPATIENT [id number] ELENA, ER F/U KORINA LOFTON P 01/05 Released w/o Limitations [employer] [place] [place] [employer] [facility] [place] OUTPATIENT [id number] F/U FOR US (VIABIL ITY) KORINA LOFTON P 01/11 Released w/o Limitations [facility] [employer] [place] [employer] [place] [facility] [place] OUTPATIENT [id number] nob BHAVESH HA 01/12 Released w/o Limitations [facility] [employer] [place] [employer] [place] [facility] [place] OUTPATIENT [id number] NOB EDC 09/02/05 KORINA LOFTON P 02/16 Released w/o Limitations [facility] [employer] [place] [place] [employer] [place] [facility] [place] TELE CONSULT [id number] Bipolar and headach e KORINA LOFTON P 03/03 [place] [employer] [place] [place] [facility] [place] OUTPATIENT [id number] eval KORINA LOFTON P 03/04 Released w/o Limitations [facility] [employer] [place] [employer] [place] [facility] [place] TELE CONSULT [id number] referra JAIMIE Alexis 03/08 [facility] [place] [employer] [facility] [place] OUTPATIENT [id number] KORINA Parra 03/23 Released w/o Limitations [facility] [employer] [place] [place] [facility] [place] [place] OUTPATIENT [id number] N/V KORINA LOFTON 04/11 Released w/o Limitations [facility] [employer] [place] [employer] [place] [facility] [place] OUTPATIENT [id number] KORINA Parra 04/20 Released w/o Limitations [facility] [employer] [place] [employer] [place] [facility] [place]) OUTPATIENT [id number] R/O PTL DREW INTERIANO 05/05 Released w/o Limitations [facility] [place] [place] Procedures Combined list of: 1) Procedures from Department of Veterans Affairs facilities going back up to thelast 18 months, not all VA non-surgical procedures are included; 2) All procedures from the Department of Defense facilities. Procedure Procedure Type Code Date Perfomer Comments Sour e OB Services Antepartum Care Only Subsequent Single Visit OB Services Antepartum Care Only Subsequent Single Visit [id number] 04/20/2005 KORINA LOFTON OB Services Antepartum Care Only Subsequent Single Visit OB Services Antepartum Care Only Subsequent Single Visit [id number] 03/24/2005 KORINA LOFTON OB Services Antepartum Care Only First Visit, With Report OB Services Antepartum Care Only First Visit, With Report [id number] 02/16/2005 KORINA LOFTON Ultrasound [place] [id number] 02/16/2005 LOFTON, KORINA P DoD Ultrasound [place] [id number] 01/11/2005 KORINA LOFTON DoD Ultrasound [place] [id number] 01/05/2005 KORINA LOFTON DoD Social History Combined list of available smoking, tobacco, and other social history from Department of Defense and Veterans Affairs facilities. Social History Type Response Date Comment Sour e This section is an empty social history section. DoD
--- NOTE | 2025-04-10 14:06 | W.ED.BACK ---
HPI - Back Pain/Injury General: Chief Complaint: Back Pain/Injury Stated Complaint: back pain Time Seen by Provider: 04/10/25 13:40 Source: patient Mode of arrival: ambulatory Limitations: no limitations History of Present Illness: Patient is a 44-year-old female presents to ED today with a complaint of back pain and burning to her bilateral legs. Patient states approximately a year ago she underwent lumbar fusion by Dr. Han. She states a month ago she underwent right hip surgery at for treatment of osteoarthritis and a labral tear. She states following her surgery a month ago, she began noticing worsening back pain. She initially attributed it to may be surgical table positioning but states symptoms have not gotten better. She describes white hot sensations to her bilateral legs in no specific dermatome. states he has noticed her walking like her legs are heavy. She has not noticed any obvious leg weakness and has continued to be ambulatory at home over the past month. She states starting yesterday, she has had a few episodes of urinary incontinence. She is not having any issues with bowel retention/incontinence. She does report some degree of saddle anesthesia. She has been ambulatory since her surgery. States she has a follow-up appointment scheduled with Dr. Han tomorrow. MD elicited complaint: back pain Pertinent past history: prior back pain and back surgery Onset (ago): week(s) Timing: constant Severity: severe Quality: burning Location: lumbar spine Radiation: left upper leg, right upper leg, left leg below the knee and right leg below the knee Exacerbating factors: none Relieving factors: none Associated symptoms: Reports other (urinary incontinence); Deny abdominal pain, chills, difficulty walking, dysuria, fatigue, fever(s), hematuria or urinary urgency Work related injury: No Related Data Home Medications ?Medication ?Instructions ?Recorded ?Confirmed ziprasidone HCl 80 mg capsule 80 mg PO BID 08/24/22 02/12/25 oxcarbazepine 600 mg tablet 600 mg PO BID 07/13/23 02/12/25 (Trileptal) buspirone 30 mg tablet 30 mg PO BID 08/26/23 02/12/25 clonazepam 1 mg tablet 1 mg PO BEDTIME Anxiety 04/11/24 02/12/25 trazodone 100 mg tablet 200 mg PO BEDTIME 04/11/24 02/12/25 vilazodone 10 mg tablet 10 mg PO QAM 04/11/24 02/12/25 pantoprazole 40 mg tablet,delayed 40 mg PO BID 06/04/24 02/12/25 release rituximab-abbs 10 mg/mL 1,000 mg IV .[id number] 06/04/24 02/12/25 intravenous solution acetaminophen 325 mg tablet 650 mg PO QID PRN Fever Or Pain 11/27/24 02/12/25 (Tylenol) hydroxyzine pamoate 50 mg capsule 50 mg PO QID PRN anxiety 11/27/24 02/12/25 ibuprofen 200 mg tablet (Advil) 800 mg PO Q6H PRN Fever Or Pain 11/27/24 02/12/25 Previous Rx's ?Medication ?Instructions ?Recorded epinephrine 0.3 mg/0.3 mL 0.3 mg (0.3 mL) IM Q15M PRN 12/23/23 injection, auto-injector (EpiPen anaphylaxis #2 ea 2-Edward) albuterol sulfate 2.5 mg/3 mL 2.5 mg (3 mL) inhalation Q4H PRN 06/25/24 (0.083 %) solution for nebulization Shortness Of Breath #90 mL isosorbide mononitrate 30 mg 30 mg PO DAILY #90 tabs 06/26/24 tablet,extended release 24 hr valacyclovir 1 gram tablet 1,000 mg PO TID #21 tabs 07/08/24 (Valtrex) insulin aspart U-100 100 unit/mL 5 unit (0.05 mL) SUBCUT TID #15 mL 08/03/24 (3 mL) subcutaneous pen (Novolog FlexPen U-100 Insulin aspart) ondansetron 4 mg disintegrating 4 mg PO 3XD PRN n/v #60 tabs 08/31/24 tablet montelukast 10 mg tablet 10 mg PO DAILY #90 tabs 11/01/24 (Singulair) meloxicam 15 mg tablet 15 mg PO DAILY #30 tabs 11/21/24 doxycycline hyclate 100 mg tablet 100 mg PO BID abscess #14 tabs 12/14/24 fluticasone fur. 100 mcg-umeclid 1 inh inhalation DAILY #60 ea 12/24/24 62.5 mcg-vilant 25 mcg inhalat.powder (Trelegy Ellipta) gabapentin 600 mg tablet See Rx Instructions .Route 12/24/24 .COMPLEX #180 tabs insulin glargine 100 unit/mL (3 See Rx Instructions .Route 01/14/25 mL) subcutaneous pen (Lantus .COMPLEX #60 mL Solostar U-100 Insulin) azathioprine 50 mg tablet 100 mg (2 x 50 mg) PO BID #120 tabs 01/16/25 hydroxychloroquine 200 mg tablet 200 mg PO BID #180 tabs 01/16/25 mupirocin 2 % topical ointment 1 applic topical TID #22 grams 01/16/25 (Centany) fluconazole 150 mg tablet 150 mg PO DAILY #5 tabs 02/08/25 nystatin 100,000 unit/gram topical 1 applic topical BID #30 grams 02/08/25 cream dapagliflozin propanediol 10 mg 10 mg PO DAILY #90 tabs 02/12/25 tablet (Farxiga) levothyroxine 200 mcg tablet See Rx Instructions .Route 02/12/25 .COMPLEX #90 tabs levothyroxine 25 mcg tablet See Rx Instructions .Route 02/12/25 .COMPLEX #90 tabs tirzepatide 15 mg/0.5 mL 15 mg (0.5 mL) SUBCUT Q7D 90 days 02/12/25 subcutaneous pen injector #6.5 mL (Rai) blood-glucose sensor ([employer] G7 #3 ea 02/19/25 Sensor device) atorvastatin 20 mg tablet 20 mg PO DAILY #90 tabs 02/21/25 bumetanide 1 mg tablet 1 mg PO BID #120 tabs 03/04/25 lisinopril 40 mg tablet 40 mg PO BEDTIME #90 tabs 03/18/25 sacubitril 49 mg-valsartan 51 mg 1 tab PO BID #180 tabs 03/18/25 tablet (Entresto) oxycodone-acetaminophen 10 mg-325 1 tab PO Q6H PRN pain 30 days #120 04/02/25 mg tablet tabs Allergies Allergy/AdvReac Type Severity Reaction Status Date / Time anifrolumab-fnia (From Allergy Severe hives Verified 04/10/25 13:46 Saphnelo) Alpha-Gal Allergy Intermediate ALGY-Rash Verified 04/10/25 13:46 (Mneaukuje-Vqazm-2,3-Gala belimumab (From Benlysta) Allergy Intermediate rash and Verified 04/10/25 13:46 hives amoxicillin Allergy ALGY-Rash Verified 04/10/25 13:46 bee venom protein (honey bee) Allergy ALGY-Anaphy Verified 04/10/25 13:46 laxis cinnamon Allergy anaphylacti Verified 04/10/25 13:46 c desvenlafaxine (From Pristiq) Allergy Unknown Verified 04/10/25 13:46 fluoxetine (From Prozac) Allergy Unknown Verified 04/10/25 13:46 Latex, Natural Rubber Allergy ALGY-Rash Verified 04/10/25 13:46 oxytocin (From Pitocin) Allergy ADR-Itching Verified 04/10/25 13:46 Penicillins Allergy ALGY-Hives Verified 04/10/25 13:46 Sulfa (Sulfonamide Allergy ALGY-Rash Verified 04/10/25 13:46 Antibiotics) leflunomide AdvReac Intermediate gastric Verified 04/10/25 13:46 Review of Systems Const: Denies: fever(s), chills, body aches, fatigue or malaise Card: Denies: chest pain Resp: Denies: dyspnea GI: Denies: abdominal pain : Reports: urinary incontinence; Denies: dysuria, urinary frequency, urinary urgency, urinary hesitancy, hematuria or pelvic pain Musc: Reports: back pain; Denies: neck pain, extremity pain, extremity swelling, joint pain, joint swelling or joint redness Neuro: Reports: weakness in extremities and sensory changes (reporting white hot sensations to legs); Denies: lack of coordination, difficulty walking or frequent falls PFSH ED PFSH: Medical History Abscess of left thigh Adult BMI 50.0-59.9 kg/sq m Heart failure with preserved ejection fraction History of echocardiogram 03/2024 EF 60%, Grade I/IV, normal PAP, no LVH, RAP 5mmHg OCD (obsessive compulsive disorder) Hernia of fascia Abnormal mammogram of right breast Hyponatremia chronic, may be related to some medications, which are being adjusted by primary prescribers Hypertension Syncope ADHD Generalized anxiety disorder Fatty liver Fatigue B12 deficiency Lung injury associated with vaping Contact dermatitis SLE (systemic lupus erythematosus related syndrome) Hypothyroidism COPD (chronic obstructive pulmonary disease) Leukocytosis chronic Rosacea Positive double stranded DNA antibody test Labral tear of left hip joint KI (obstructive sleep apnea) Morbid obesity Bipolar 1 disorder PTSD (post-traumatic stress disorder) Chronic urticaria Insomnia Mild intermittent asthma Allergic rhinitis GERD (gastroesophageal reflux disease) Shingles 4th occurrence Hyperlipemia, mixed Helicobacter pylori gastritis Mandibular fracture Diabetes mellitus Type 2 Depression Surgical History History of left hip replacement History of cardiac catheterization 04/12/2024 Dr House: No disease noted in the Left Main, Left Anterior Descending, Right, or Circumflex coronary arteries. History of ankle surgery (02/08/24) By Dr Murphy: Left modified Brostr?m with internal brace, repair left peroneus brevis tendon split tear and peroneus longus tenosynovectomy, topaz achilles tendon with PRP injection Status post lumbar spinal fusion (05/23/24) Dr Han, L4-5 History of mandibular surgery For mandibular fracture H/O esophagogastroduodenoscopy (09/02/21) H/O thyroidectomy done due to multinodular goiter S/P cholecystectomy S/P tonsillectomy and adenoidectomy S/P breast lumpectomy Right breast lumpectomy for benign disease Previous section Family History Father Hypertension Cancer testicular Cardiac abnormality Mother Congestive heart failure (CHF) COPD (chronic obstructive pulmonary disease) Diabetes Cancer ovarian and uterine Family/Other Cancer Maternal aunt- HR2 breast Other CAD (coronary artery disease) Family history of premature coronary artery disease Hyperlipidemia Lung disease Psychiatric illness Rheumatoid arthritis Stroke Denies family history of Lupus Clotting disorder Dementia Chronic kidney disease (CKD) Anesthesia complication Bleeding disorder Social History Smoking and tobacco/nicotine status: never used tobacco/nicotine Quit status (tobacco/nicotine): has quit using Year quit tobacco: July Former quit date comment: Hx of 2 ppd X 25 years, started at age 16 yr. Alcohol intake: former Substance/Drug Use: never Adopted: No Caregiver/support person: No Lives independently: Yes Household members: spouse and family Housing: House Marital status: Marital status details: 26 years in 2023 Number of children: 2 Number of grandchildren: 1 Highest education level completed: Some College, No Degree service: No Current occupational status: employed Current occupation: [employer] Sexually active: Yes Do you think of yourself as: Straight/Heterosexual Current gender identity: Female Balbina/Evangelical: Uatsdin Special balbina needs: No Agree to transfusion: Yes Physical Exam Const: COMMON NORMALS: no acute distress, patient oriented x3, no limitations, alert and well nourished GENERAL APPEARANCE: cooperative NUTRITIONAL APPEARANCE: obese morbidly obese (BMI 47.8) ORIENTATION/CONSCIOUSNESS: Yes awake, Yes oriented to person, Yes oriented to place and Yes oriented to time HENMT: COMMON NORMALS: normocephalic and atraumatic HEAD & SCALP: normal to inspection, normocephalic and atraumatic Neck/C-Spine: COMMON NORMALS: full ROM, no lymphadenopathy, supple, no meningeal signs, no JVD, Thyroid normal and No carotid bruits GENERAL: Yes normal visual inspection THYROID: Thyroid normal Resp: COMMON NORMALS: normal respiratory effort and clear to auscultation bilaterally AUSCULTATION: clear to auscultation bilaterally Cardio: COMMON NORMALS: no JVD, regular rate and regular rhythm RATE: regular rate RHYTHM: regular rhythm GI: COMMON NORMALS: Normal to inspection, nondistended, normoactive bowel sounds present, Soft to palpation and non-tender PALPATION: Yes Soft to palpation RECTAL EXAM: Anal wink reflex intact : COMMON NORMALS: Yes no CVA tenderness BLADDER/KIDNEY EXAM: Yes no CVA tenderness Back/Pelvis: COMMON NORMALS: no CVA tenderness THORACIC SPINE/UPPER BACK: No thoracic spinal tenderness LUMBAR SPINE/LOWER BACK: Yes ROM limited, Yes lumbar spinal tenderness and No paraspinal muscle spasm PELVIS: Yes buttocks normal and No sciatic notch tenderness SACRUM: no tenderness COCCYX: no tenderness Extremity: COMMON NORMALS: normal to inspection, full ROM, no joint enlargement, no clubbing, cyanosis or edema, no calf tenderness and no pedal edema GENERAL: Yes normal exam except as noted Neuro: COMMON NORMALS: patient oriented x3 and moves all extremities SENSORIUM/ORIENTATION: Yes alert, Yes oriented to person, Yes oriented to place and Yes oriented to time MENINGEAL SIGNS: Yes no meningeal signs MOTOR EXAM: Other motor observations present (weakness noted to bilateral LE-no specific myotome) Course Vital Signs: Vital signs: Vital Signs Temperature 98.2 F 04/10/25 13:41 Pulse Rate 63 04/10/25 17:30 Respiratory Rate 18 04/10/25 14:50 Blood Pressure 114/85 04/10/25 17:30 Pulse Oximetry 96 04/10/25 17:30 Oxygen Delivery Me thod Room Air 04/10/25 16:30 MDM - Back Pain/Injury Medical Decision Making Patient here with complaints of worsening back pain and white hot sensations involving her entire bilateral lower extremities. She did complain of some urinary incontinence. Rectal tone was intact. MRI imaging of her lumbar spine obtained and was unremarkable. Plan will be for patient to follow-up with Dr. Han tomorrow as scheduled. No migrating symptoms to suggest demyelinating process. Other etiologies discussed with patient and plan to follow up with PCP following appointment with Dr. Han. Medical Records I reviewed the patient's medical records. Labs I reviewed the patient's lab results. 04/10/25 14:40 04/10/25 14:40 Radiology Impressions Lumbar Spine MRI 04/10/25 14:35 IMPRESSION: 1. Status post anterior and posterior L4-L5 fusion and decompression. 2. No acute findings. Laboratory Results WBC 7.45 10^3/uL (3.29-11.43) 04/10/25 14:40 RBC 4.81 10^6/uL (3.85-5.65) 04/10/25 14:40 Hgb 13.50 g/dL (11.27-16.99) 04/10/25 14:40 Hct 41.3 % (36-47) 04/10/25 14:40 MCV 85.9 fl (85-98) 04/10/25 14:40 MCH 28.1 pg (27-33) 04/10/25 14:40 MCHC 32.7 g/dL (30-55) 04/10/25 14:40 RDW 14.5 % (12.1-15.1) 04/10/25 14:40 Plt Count 280 10^3/cmm (157-399) 04/10/25 14:40 MPV 10.2 fL (7.4-10.4) 04/10/25 14:40 Neut % (Auto) 60.3 % 04/10/25 14:40 Lymph % (Auto) 29.0 % 04/10/25 14:40 Eddy % (Auto) 7.9 % 04/10/25 14:40 Eos % (Auto) 1.2 % 04/10/25 14:40 Baso % (Auto) 1.1 % 04/10/25 14:40 Neut # (Auto) 4.49 10^3/uL (1.8-7.7) 04/10/25 14:40 Lymph # (Auto) 2.2 10^3/uL (0.8-4.8) 04/10/25 14:40 Eddy # (Auto) 0.6 10^3/uL (0.2-0.9) 04/10/25 14:40 Eos # (Auto) 0.1 10^3/uL (0.0-0.8) 04/10/25 14:40 Baso # (Auto) 0.1 10^3/uL (0.0-0.1) 04/10/25 14:40 Nucleated RBC % (auto) 0 % 04/10/25 14:40 Nucleated RBCs # 0.0 /100WBC 04/10/25 14:40 Sodium 137 mmol/L (136-145) 04/10/25 14:40 Potassium 3.8 mmol/L (3.5-5.1) 04/10/25 14:40 Chloride 101 mmol/L (98-107) 04/10/25 14:40 Carbon Dioxide 23 mmol/L (22-29) 04/10/25 14:40 Anion Gap 16.8 (5-19) 04/10/25 14:40 BUN 13 mg/dL (6-20) 04/10/25 14:40 Creatinine 0.7 mg/dL (0.5-0.9) 04/10/25 14:40 GFR Calculation 91.8 mL/min (90-130) 04/10/25 14:40 Glucose 120 mg/dL (65-115) H 04/10/25 14:40 Calculated Osmolality 285 mOsm/kg (285-295) 04/10/25 14:40 Calcium 8.9 mg/dL (8.5-10.5) 04/10/25 14:40 Total Bilirubin 0.3 mg/dL (0.15-1.2) 04/10/25 14:40 AST 14 U/L (0-32) 04/10/25 14:40 ALT 13 U/L (0-33) 04/10/25 14:40 Alkaline Phosphatase 80 U/L (35-105) 04/10/25 14:40 Total Protein 7.4 g/dL (6.6-8.7) 04/10/25 14:40 Albumin 4.3 g/dL (3.5-5.2) 04/10/25 14:40 Globulin 3.1 g/dL (1.3-4.6) 04/10/25 14:40 Urine Color Yellow (Yellow) 04/10/25 15:33 Urine Appearance Clear (CLEAR) 04/10/25 15:33 Urine pH 6.0 (5-7) 04/10/25 15:33 Ur Specific Hobgood 1.028 (1.005-1.030) 04/10/25 15:33 Urine Protein Negative (Negative) 04/10/25 15:33 Urine Glucose (UA) 3+ (Normal) H 04/10/25 15:33 Urine Ketones Negative (Negative) 04/10/25 15:33 Urine Blood Negative (Negative) 04/10/25 15:33 Urine Nitrate Negative (Negative) 04/10/25 15:33 Urine Bilirubin Negative (Negative) 04/10/25 15:33 Urine Urobilinogen 1.0 mg/dL (Negative) 04/10/25 15:33 Ur Leukocyte Esterase Negative (Negative) 04/10/25 15:33 Urine RBC 0-2 /hpf (0-2) 04/10/25 15:33 Urine WBC 0-5 /hpf (0-5) 04/10/25 15:33 Ur Squamous Epith Cells 0-5 /hpf (0-5) 04/10/25 15:33 Amorphous Sediment Not Reportable 04/10/25 15:33 Urine Bacteria Trace /hpf (NONE) 04/10/25 15:33 Hyaline Casts 0-4 /lpf H 04/10/25 15:33 All radiology interpretation(s) finalized by discharge Discharge Plan Discharge Patient Disposition: Home Clinical Impression: Status post lumbar spinal fusion Condition: Stable Prescriptions: No Action trazodone 100 mg tablet 200 mg PO BEDTIME epinephrine [EpiPen 2-Edward] 0.3 mg/0.3 mL auto-injector 0.3 mg IM Q15M PRN (Reason: anaphylaxis) Qty: 2 0RF Rx Instructions: for 2 doses isosorbide mononitrate 30 mg tablet extended release 24 hr 30 mg PO DAILY Qty: 90 3RF valacyclovir [Valtrex] 1 gram tablet 1,000 mg PO TID Qty: 21 0RF lidocaine-epinephrine (PF) 2 %-1:200,000 solution 3 ml Infiltration ONCE Qty: 1 0RF povidone-iodine [Betadine Swabsticks] 10 % swab 1 applic topical ONCE Qty: 1 0RF doxycycline hyclate 100 mg tablet 100 mg PO BID Qty: 14 0RF fluconazole 150 mg tablet 150 mg PO DAILY Qty: 5 0RF nystatin 100,000 unit/gram cream 1 applic topical BID Qty: 30 1RF oxcarbazepine [Trileptal] 600 mg tablet 600 mg PO BID Rx Instructions: take 1 tablet by mouth in the am, then 1 tablet at bedtime azathioprine 50 mg tablet 100 mg PO BID Qty: 120 5RF hydroxychloroquine 200 mg tablet 200 mg PO BID Qty: 180 1RF mupirocin [Centany] 2 % ointment 1 applic topical TID Qty: 22 1RF Mounjaro 15 mg/0.5 mL pen injector 15 mg SUBCUT Q7D 90 Days Qty: 6.5 1RF dapagliflozin propanediol [Farxiga] 10 mg tablet 10 mg PO DAILY Qty: 90 1RF levothyroxine 25 mcg tablet See Rx Instructions .ROUTE .COMPLEX Qty: 90 3RF Dose Instruction: TAKE 1 TABLET BY MOUTH EVERY DAY with 200mcg TO equal 225mcg Rx Instructions: TAKE 1 TABLET BY MOUTH EVERY DAY with 200mcg TO equal 225mcg levothyroxine 200 mcg tablet See Rx Instructions .ROUTE .COMPLEX Qty: 90 3RF Dose Instruction: TAKE 1 TABLET BY MOUTH EVERY DAY Rx Instructions: TAKE 1 TABLET BY MOUTH EVERY DAY albuterol sulfate 2.5 mg /3 mL (0.083 %) solution for nebulization 2.5 mg inhalation Q4H PRN (Reason: Shortness Of Breath) Qty: 90 3RF insulin aspart U-100 [Novolog FlexPen U-100 Insulin] 100 unit/mL (3 mL) insulin pen 5 unit SUBCUT TID Qty: 15 1RF Rx Instructions: take before meals ondansetron 4 mg tablet,disintegrating 4 mg PO 3XD PRN (Reason: n/v) Qty: 60 0RF Rx Instructions: DISSOLVE ONE TABLET BY MOUTH EVERY 6 HOURS NEEDED FOR NAUSEA AND VOMITING montelukast [Singulair] 10 mg tablet 10 mg PO DAILY Qty: 90 1RF meloxicam 15 mg tablet 15 mg PO DAILY Qty: 30 0RF Trelegy Ellipta 100-62.5-25 mcg blister with device 1 inh inhalation DAILY Qty: 60 3RF gabapentin 600 mg tablet See Rx Instructions .ROUTE .COMPLEX Qty: 180 1RF Dose Instruction: TAKE 1 TABLET BY MOUTH THREE TIMES DAILY Rx Instructions: TAKE 1 TABLET BY MOUTH THREE TIMES DAILY insulin glargine [Lantus Solostar U-100 Insulin] 100 unit/mL (3 mL) insulin pen See Rx Instructions .ROUTE .COMPLEX Qty: 60 1RF Dose Instruction: INJECT 60 UNITS (0.6ML) SUBCUTANEOUSLY EVERY DAY Rx Instructions: INJECT 60 UNITS (0.6ML) SUBCUTANEOUSLY EVERY DAY (DME) Dexcom G7 Sensor Device See Rx Instructions .ROUTE .COMPLEX Qty: 3 3RF Dose Instruction: CHANGE every 10 DAYS DIRECTED Rx Instructions: CHANGE every 10 DAYS DIRECTED atorvastatin 20 mg tablet 20 mg PO DAILY Qty: 90 0RF bumetanide 1 mg tablet 1 mg PO BID Qty: 120 1RF Rx Instructions: take an additional tab for weight gain more the 3 pounds in 1 day or 5 pounds in a week Entresto 49-51 mg tablet 1 tab PO BID Qty: 180 1RF lisinopril 40 mg tablet 40 mg PO BEDTIME Qty: 90 0RF oxycodone-acetaminophen 10-325 mg tablet 1 tab PO Q6H MDD 6 PRN (Reason: pain) 30 Days Qty: 120 0RF pantoprazole 40 mg Tablet,Delayed Release (Dr/Ec) 40 mg PO BID rituximab-abbs 10 mg/mL Solution 1,000 mg IV .[id number] ziprasidone HCl 80 mg Capsule 80 mg PO BID buspirone 30 mg tablet 30 mg PO BID clonazepam 1 mg tablet 1 mg PO BEDTIME vilazodone 10 mg tablet 10 mg PO QAM acetaminophen [Tylenol] 325 mg Tablet 650 mg PO QID PRN (Reason: Fever Or Pain) ibuprofen [Advil] 200 mg Tablet 800 mg PO Q6H PRN (Reason: Fever Or Pain) hydroxyzine pamoate 50 mg capsule 50 mg PO QID PRN (Reason: anxiety ) Discharge Orders: Discharge ED (Routine); Ordered 04/10/25 Ordered By: Roxanne Dumont Referrals: Elan Kuhn MD [Primary Care Provider, Family Practice] Patient Instructions: Patient Portal & Vania Instructions Activity Restrictions/Additional Instructions: As we discussed please follow up with Dr. Han tomorrow as scheduled. You need to return to the emergency department for worsening pain, leg weakness, trouble ambulating, or any other concerns you may have. Print Language: Barbadian Coding Level of Care Code ED Certified Paralegal for Chao Monsalve
--- NOTE | 2025-04-10 14:35 | MRR_ITS ---
PROCEDURE INFORMATION: Exam: MR Lumbar Spine Without and With Contrast Exam date and time: 04/10/2025 3:50 PM Age: 44 years old Clinical indication: Prior surgery; Surgery date: 6+ months; Surgery type: 05/23/24 low back fusion; Low back pain started this am, no specific injury; Additional info: Back pain, leg numbness/weakness, urinary incontinence TECHNIQUE: Imaging protocol: Magnetic resonance imaging of the lumbar spine without and with contrast. Contrast material: MAGNEVIST; Contrast volume: 20 ml; Contrast route: INTRAVENOUS (IV); COMPARISON: CT lumbar spine wo con* [id number] 02/06/2025 9:46 AM FINDINGS: Tubes, catheters and devices: Status post anterior and posterior L4-L5 fusion with interbody device, posterior rods and screws. In addition, dorsal decompression. Bones/joints: No fractures. Spinal cord: Unremarkable distal spinal cord and cauda equina. L1-L2: No significant disc bulge or herniation. No severe spinal canal stenosis. No significant neural foraminal narrowing. L2-L3: No significant disc bulge or herniation. No severe spinal canal stenosis. No significant neural foraminal narrowing. L3-L4: No significant disc bulge or herniation. No severe spinal canal stenosis. No significant neural foraminal narrowing. L4-L5: Fused anteriorly and posteriorly. Dorsally decompressed. Normally patent canal and foramina. L5-S1: No significant disc bulge or herniation. No severe spinal canal stenosis. No significant neural foraminal narrowing. Soft tissues: Unremarkable. MR/MR lumbar spine wo/w con [id number] IMPRESSION: 1. Status post anterior and posterior L4-L5 fusion and decompression. 2. No acute findings.
[2025-04-10] MEDS: morphine 4 mg/mL SDV 1 mL IVP (14:50)
[2025-04-10 14:53] LABS: Hematocrit 41.3 % (36-47); Hemoglobin 13.50 g/dL (11.27-16.99); Mean Corpuscular HGB Conc 32.7 g/dL (30-55); Mean Corpuscular Hemoglobin 28.1 pg (27-33); Mean Corpuscular Volume 85.9 fl (85-98); Nucleated Red Blood Cells % 0 %; Platelet Count 280 10^3/cmm (157-399); Red Blood Count 4.81 10^6/uL (3.85-5.65); White Blood Count 7.45 10^3/uL (3.29-11.43)
[2025-04-10 15:10] LABS: Alanine Aminotransferase 13 U/L (0-33); Albumin Level 4.3 g/dL (3.5-5.2); Alkaline Phosphatase 80 U/L (35-105); Anion Gap 16.8 (5-19); Aspartate Amino Transferase 14 U/L (0-32); Blood Urea Nitrogen 13 mg/dL (6-20); Calcium 8.9 mg/dL (8.5-10.5); Carbon Dioxide 23 mmol/L (22-29); Chloride 101 mmol/L (98-107); Creatinine Clr Calc Pharmacy 142.5891; Globulin 3.1 g/dL (1.3-4.6); Glucose 120 mg/dL (65-115); Osmolality Calculated 285 mOsm/kg (285-295); Potassium 3.8 mmol/L (3.5-5.1); Sodium 137 mmol/L (136-145); Total Protein 7.4 g/dL (6.6-8.7)
[2025-04-10 15:55] LABS: Glucose Urine UA 3+ (Normal); Nitrate Urine Negative (Negative); Specific Gravity, Urine 1.028 (1.005-1.030)
[2025-04-10 15:57] LABS: Add Urine Microscopic? YES
[2025-04-10] MEDS: HYDROmorphone 0.5 MG/0.5 ML INJ IVP (16:35)
[2025-04-10] MEDS: orphenadrine 30 mg/mL Inj 2 mL 60 MG IVP (16:36)
--- OUTSIDE RECORDS SUMMARY | 2025-04-10 21:41 | XMS_ITS | Patient Health Record ---
Author Organization [facility] Address [address] [place] [address] Care Team Providers Care Safety Sealer Name Role Phone Hattie BYRNE, Elan Primary Care Provider Unavailab Sung Lopez Unavailable [phone] Farshad Ordaz Unavailable [phone] Tee Beaver Unavailable [phone] Migration, Provider Unavailable Unavailable Allergies Allergen (clinical [...] Drug Allergy Active Tape Unknown Allergy Active Reason For Referral Reason Suspected Pulmonary Hypertension, Hypoxemia requiring O2, Shingles, COPD 1/21-3wks per Sushma Scheduled 10/09/2024 @ 10:[address] Jackson- From [place], [place] Diagnosis 1 Other specified symp toms and signs involving the circulatory and respiratory systems (R09.89) Diagnosis 2 Hypoxemia (R09.02) Diagnosis 3 Dependence on supple mental oxygen (Z99.81) Diagnosis 4 Zoster without compl ications (B02.9) Diagnosis 5 Chronic obstructive pulmonary disease, unspecified COPD type (J44.9) Referring Provider First Name CONOR Referring Provider Last Name BRITTANY Referring Provider Speciality Nurse Inna borges Referred Organization [facility] Referred Provider Farshad Ordaz Referred Address [address],[place], [place],[address],[place] Referred Provider Specialty Pulmonary Di seases General Notes Makenna Dos Santos 09/18 11:57:58 AM >09/18-[facility] medical records is sending CXR report. Radiology is [facility].-Received report in DI Docs.-Gave Sushma report., Makenna Dos Santos 09/20/2024 04:01:28 PM >Scheduled 10/09/2024 @ 10:30 AM Referral Priority Routine Medications Medication SIG (Take, Route, Frequency, Duration) Notes Start Date End Date Status Tradjenta 5 MG Tablet 1 tablet Orally On ce a day Not-Taking hydrOXYzine Pamoate 50 MG Capsule take 1 capsule BY MOUTH THREE TIMES DAILY NEEDED FOR ANXIETY Oral; Duration: 30 Days Active Hydroxychloroquine Sulfate 200 MG Tablet TAKE 1 TABLET BY MOUTH TWICE DAILY Oral; Duration: 30 Days Active Leflunomide 20 MG Tablet Oral; Duration: 30 Days Active Ipratropium-Albuterol 0.5-2.5 (3) MG/3ML Solution USE ONE vial via nebuilzer EVERY 8 HOURS as needed for wheezing Inhalation; Duration: 10 Days Active busPIRone HCl 30 MG Tablet 1 tablet Oral ly Twice a day Active Melatonin 5 MG Tablet 1 tablet in the evening Orally Once a day Not-Taking Benlysta 200 MG/ML Solution Prefilled Syringe inject 200mg SUBCUTANEOUSLY EVERY 7 DAYS FOR 12 weeks Subcutaneous Active lamoTRIgine ER 200 MG Tablet Extended Release 24 Hour 1 tablet Orally Once a day Not-Taking Diclofenac Sodium 75 MG Tablet Delayed Release Oral; Duration: 30 Days Active NovoLIN 70/30 (70-30) 100 UNIT/ML Suspension 15 u Subcutaneous BID Not-Taking clonazePAM 1 MG Tablet TAKE 1 TABLET BY MOUTH EVERY DAY NEEDED FOR anxiety Oral Active metFORMIN HCl 1000 MG Tablet 1 tablet with a meal Orally bid Not-Taking Docusate Sodium 250 MG Capsule 1 capsule as needed Orally BID Active Dicyclomine HCl 20 MG Tablet TAKE 1 TABLET BY MOUTH FOUR TIMES DAILY FOR SEVEN DAYS NEEDED FOR abdominal cramping Oral Active Ozempic (2 MG/DOSE) 8 MG/3ML Solution Pen-injector INJECT 2MG SUBCUTANEOUSLY every week Subcutaneous; Duration: 28 Days Not-Taking Gabapentin 600 MG Tablet 1 capsule Orally BID Active traZODone HCl 100 MG Tablet Oral; Duration: 30 Days Active Albuterol Sulfate HFA 108 (90 Base) MCG/ACT Aerosol Solution Inhalation; Duration: 20 Days Active Ziprasidone HCl 80 MG Capsule 1 capsule with food Orally Twice a day Active Trelegy Ellipta 100-62.5-25 MCG/ACT Aerosol Powder Breath Activated INHALE 1 PUFF EVERY DAY Inhalation; Duration: 30 Days Active Atorvastatin Calcium 20 MG Tablet 1 tablet Orally Once a day Active Famotidine 20 MG Tablet 1 tablet at bedt china as needed Orally Once a day Not-Taking Amphetamine-Dextroamphet ER 30 MG Capsule Extended Release 24 Hour take 1 capsule BY MOUTH EVERY MORNING FOR adhd Oral; Duration: 30 Days Active clonazePAM 1 MG Tablet 1 tablet Orally O nce a day Not-Taking Lisinopril 20 MG Tablet 1 tablet Orally Once a day Active Levothyroxine Sodium 200 MCG Tablet 1 tablet in the morning on an empty stomach Orally Once a day Active OXcarbazepine 600 MG Tablet Oral; Duration: 30 Days Active Montelukast Sodium 10 MG Tablet TAKE 1 TABLET BY MOUTH EVERY DAY Oral; Duration: 30 Days Active Symbicort 80-4.5 MCG/ACT Aerosol Inhalation; Duration: 30 Days Active Pantoprazole Sodium 40 MG Tablet Delayed Release TAKE ONE TABLET BY MOUTH TWICE DAILY Oral; Duration: 30 Days Active Social History Social History Depression Screening Social Info Question Answer Notes PHQ-9 Little interest or p amisha in doing things More than half the days Feeling down, depressed, or hopeless More than h haseeb the days Trouble falling or staying a sleep, or sleeping too much More than half the days Feeling tired or having little energy Nearly ray ry day Poor appetite or overeating Several days Feeling bad about yourself, or that you are a failure, or have let yourself or your family down Several days Trouble concentrating on thi ngs, such as reading the newspaper or watching television Nearly every day Moving or speaking so slowly that other people could have noticed. Or the opposite ? being so fidgety or restless that you have been moving around a lot more than usual Not at all Thoughts that you would be b cyndee off , or of hurting yourself in some way More than half the days (Consider Suicide Assessment Risk) Total Score 16 Interpretation Moderately severe depression Drugs/Alcohol: Social Info Question Answer Notes Alcohol Screen (Audit-C) Did you have a drink containing alcohol in the past year? Yes How often did you have a drink containing alcohol in the past year? Monthly or less (1 point) Points 1 Interpretation Negative Drugs Have you used drugs other than those for medical reasons in the past 12 months? No Tobacco Use: Social Info Question Answer Notes Tobacco Control (Standard) Additional Findings: Tobacc o user e-cigarette Additional Details Category Social Info Options Details Drugs/Alcohol: Do you smoke marijuana? De nies Do you drink alcohol? No Migrated Social History Migrated Social History Alcoholic beverages? - No, Applying for disability? - No, Currently on disability? - No, Drug or substance abuse? - No, Involved in any legal proceedings or lawsuits? - No, Marital Status - , Nonprescription drug use? - No, Participation in detoxification or rehabilitation - No, Smoking - No, Working currently? - Yes Problems Problem Type SNOMED Code ICD Code Onset Dates Problem Status W/U Status Risk Notes Problem Leukemoid reaction (53737546) Leukemoid reaction (D72.823) Active confirmed Problem Leukocytosis (485673652) Elevated white blood cell count, unspecified (D72.829) Active confirmed Problem Dependence on supplemental oxygen (803439409684) Dependence on supplemental oxygen (Z99.81) Active confirmed Problem COPD - Chronic obstructive pulmonary disease (08767996) Chronic obstructive pulmonary disease, unspecified COPD type (J44.9) Active confirmed Problem Nausea and vomiting (67785123) Nausea and vomiting, intractability of vomiting not specified, unspecified vomiting type (R11.2) Active confirmed Problem Obstructive sleep apnea syndrome (89821440) KI (obstructive sleep apnea) (G47.33) Active confirmed Problem Eruption of skin (046391505) Rash and nonspecific skin eruption (R21) Active confirmed Problem Urticaria (028404635) Urticaria (L50.9) Active confirmed Problem Non-Hodgkin lymphoma (597721442) Lymphoma, unspecified body region, unspecified lymphoma type (C85.90) Active confirmed Problem Skin sensation disturbance (22895132) Left leg paresthesias (R20.2) Active confirmed Problem Lymphoma of maury d organ excluding spleen, unspecified lymphoma type (C85.99) Active confirmed Problem Articular cartilage disorder of the pelvic region and thigh (536761207) Degenerative tear of acetabular labrum of left hip (M24.152) Active confirmed Problem Chronic respiratory failure (78258045) Chronic hypoxic respiratory failure (J96.11) Active confirmed Vital Signs Heart Rate 83 /min 11/29/2024 Temperature 96.6 degrees Fahrenheit 10/09/2024 Respiratory Rate 22 /min 10/09/2024 Height-cm 165.10 cm 11/29/2024 Oximetry 94 % 11/29/2024 Blood pressure diastolic 72 mm Hg 11/29/2024 Weight-kg 145.4 kg 11/29/2024 Height 65.00 in 11/29/2024 Blood pressure systolic 118 mm Hg 11/29/2024 Weight 320.55 lbs 11/29/2024 BMI 53.34 kg/m2 11/29/2024 Encounters Encounter Location Date Provider Diagnosis [facility] [address] [place] [address] 10/09/2024 Farshad Ordaz Shortness of breath R06.02 ; Chronic hypoxic respiratory failure J96.11 and KI (obstructive sleep apnea) G47.[address] [place] [address] 11/29/2024 Sung Foss Tear of right acetabular labrum, initial encounter S73.191A Migrated_Facility 0 0 06/23/2024 Provider Migration Migrated_Facility 0 0 06/24/2024 Provider Migration [address] [place] [address] 11/21/2024 Tee Beaver [facility] [address] [place] [address] [place] [address] 03/06/2025 Farshad Ordaz [facility] [address] [place] [address] [place] [address] 03/11/2025 Farshad Ordaz Assessments Encounter Date Diagnosis (ICD Code) Assessment Notes Treatment Notes Treatment Clinical Notes Section Notes 10/09/2024 Shortness of breath (ICD-10 - R06.02) She is being evaluated by a pest control worker helper in [facility]. I am here as a backup in the event that she needs further management if she develops any respiratory failure or distress. She already has a scheduled PFT and right heart catheterization. I will request for records as soon as they are available. 10/09/2024 Chronic hypoxic respiratory failure (ICD-10 - J96.11) Continue oxygen to maintain saturation above 88% given history of COPD. This is to be confirmed under PFT. 11/29/2024 Tear of right acetabular labrum, initial encounter (ICD-10 - S73.191A) This individual has a hip labral tear. I told her I do not do this type of surgery and I cannot help her. Recheck on appearing basis. 10/09/2024 KI (obstructive sleep apnea) (ICD-10 - G47.33) Obtain copies of sleep study records from [place]. Patient to continue BiPAP. 10/09/2024 Other I, Jocelyn Rogel, am scribing for, and in the presence of Dr. Farshad Ordaz. I, Dr. Farshad Ordaz, personally performed the services described in this documentation, as scribed by Jocelyn Rogel in my presence, and it is both accurate and complete. Plan Of Treatment Pending Test Test Name Order Date IgG [id number] 06/18/2021 IgG [id number] 07/02/2021 CMV DNA-PCR QUANT [id number] 07/16/2021 Microscopic Urine [id number] 06/18/2021 Next Appt Details Provider Name:Farshad Ordaz, 04/11/2025 01:40:00 PM, [address] [place] [address] [address], [place], [address], Insurance Providers Payer Name Payer Address Payer Phone Subscriber Number Group Number Insured Name Patient Relationship to Insured Coverage Start Date Coverage End Date [address] [address] [place] [address] [phone] [id number] MILTON GUZMÁN Self - patient is the insured [place] Medicaid [address] [place] [address] [phone] [id number] MILTON GUZMÁN Self - patient is the insured Medical (General) History Medical History History ICD Code Chicken Pox Pneumonia anemia migraine headaches type II diabetes hernia Back Trouble hypertension hemorrhoids asthma eczema bronchitis anxiety COPD depression fatty liver GERD Hypothyroidism kidney stones sleep apnea thyroid nodule bladder infection arthritis back trouble hyperlipidemia rashes/skin problems Lupus sle shingles Arthritis Anemia Diabetes HTN Surgical History Surgery Date(Month/Year) gallbladder removal 2006 thermal ablation C section 08/17/2005 thyroid 08/09/2018 Tonsillectomy, and adenoidectomy Since 1996 section Since 2001 2004 Breast lumpectomy Since 2003 cholecystectomy Since 2006 thyroid surgery Since 2017 Left Hip Surgery Since 2022 jaw c section 12/04/2001 tonsil and adnoids 1997 r breast lumpectomy 2002 Hospitalization History Reason Date(Month/Year) respiratory failure with hypoxia 022 pneumonia 07/26/2021 pneumonia 2019
--- OUTSIDE RECORDS SUMMARY | 2025-04-10 21:42 | XMS_ITS | Clinical Summary ---
Author Organization [facility] Address [address] [place]: Epic Prelude ADT [place] [address] Care Team Providers Care Veterinary Laboratory Technician Name Role Phone Unavailable Primary Care Provider Unavailabl e Allergies Active Allergy Reactions Criticality Noted Date Comments Bee Venom Protein (Honey Bee) Rash Low 05/04/2023 Cinnamon Anaphylaxis High 05/04/2023 Fluoxetine Other (See Comments) 05/04/2023 Suicidal ideation Latex Hives High 05/04/2023 Oxytocin Rash Low 05/04/2023 Penicillins Hives High 05/04/2023 Medications acetaminophen (Acetaminophen Extra Strength) 500 mg tablet Q6H 12/11/2020 Activ e albuterol sulfate 90 mcg/actuation metered powder inhaler Q4H 12/02/2022 Active atorvastatin (LIPITOR) 5 mg tablet daily. 06/11/2022 Active azelas-fluticaso [id number] 137 mcg-50 mcg- 0.9 % kit,spray suspension and spray Twice A Day 11/02/2021 Active buspirone HCl (busPIRone, bulk,) 100 % Powder Three Times Daily 09/14/2022 Active dextroamphetamin e-amphetamine (AdderalL) 30 mg tablet 30 mg daily. 03/17/2023 Active docusate sodium (COLACE) 100 mg capsule daily. 08/18/2022 Active furosemide in sodium chloride 0.9% 10 mg. 03/17/2023 Active levothyroxine 200 mcg Capsule 200 mcg daily. 12/16/2022 Active gabapentin enacarbil (HORIZANT) 600 mg Extended Release 24 hour tablet 600 mg. 02/14/2023 Active lisinopriL (PRINIVIL) 40 mg tablet 40 mg. 10/14/2022 Active traZODone (DESYREL) 150 mg tablet 150 mg. 11/18/2022 Active ZIPRASIDONE HCL ORAL 80 mg. 08/24/2022 Active ondansetron (ZOFRAN) 4 mg Tablet Take 4 mg by mouth every 8 hours as needed for Nausea/Emes is. Active OXcarbazepine (TRILEPTAL) 600 mg tablet Take 600 mg by mouth 2 times daily. Active montelukast (SINGULAIR) 10 mg tablet Take 10 mg by mouth daily at bedtime. Active clonazePAM (KlonoPIN) 1 mg tablet Take 1 mg by mouth 2 times daily. Active Active Problems No known active problems Encounters Date Type Department Care Team Description 02/12/2025 External Device Data [facility] Provider, Abstract 01/29/2025 External Device Data [facility] Provider, Abstract from Last 3 Months Social History Tobacco Use Types Packs/Day Years Used Date Smoking Tobacco: Former Cigarettes Smokeless Tobacco: Never Tobacco Cessation:Counseling Given: Not Answered Alcohol Use Standard Drinks/Week Comments Not Currently 0 (1 standard drink = 0.6 oz pur e alcohol) Comments No Sex and Gender Information Value Date Recorded Sex Assigned at Not on file Legal Sex Female 5:17 AM SECURITY ASSOCIATE Gender Identity Not on file Sexual Orientation Not on file Last Filed Vital Signs Vital Sign Reading Time Taken Comments Blood Pressure 135/78 07/14/2023 9:45 PM SECURITY ASSOCIATE Pulse 80 07/14/2023 9:45 PM SECURITY ASSOCIATE Temperature 36.9 C (98.4 F) 07/14/2023 5:12 PM SECURITY ASSOCIATE Respiratory Rate 22 07/14/2023 9:45 PM SECURITY ASSOCIATE Oxygen Saturation 93% 07/14/2023 9:45 PM SECURITY ASSOCIATE Inhaled Oxygen Concentration - - Weight 139.1 kg (306 lb 9.6 oz) 07/14/2023 5:12 PM SECURITY ASSOCIATE Height 165.1 cm (5' 5 ) 07/14/2023 5:12 PM SECURITY ASSOCIATE Body Mass Index 51.02 07/14/2023 5:12 PM SECURITY ASSOCIATE Plan of Treatment Health Maintenance Due Date Last Done Comments HEPATITIS B VACCINES (1 of 3 - 19+ 3-dose series) 2001 HPV/Cotest (21-29) 2003 CERVICAL CANCER SCREENING 2012 HPV/Cotest (30-65) 2012 PAP SMEAR 2012 DTAP/TDAP/TD VACCINES (1 - Tdap) 02/24/2020 02/23/2020 COVID-19 Vaccine (3 - Moderna risk series) 06/05/2021 05/08/2021, 04/10/2021 BREAST CANCER SCREENING 2022 INFLUENZA VACCINE (#1) 2025 2, 07/13/2019 HPV VACCINES Aged Out No longer eligi ble based on patient's age to complete this topic Insurance [facility] [place] [address] POS II
== END 2025-04-10 17:31 | disposition home or self-care (01) ==
PROVIDERS: Emergency Provider Physician Assistant; PCP Family Medicine
DX: M43.26 Fusion of spine, lumbar region (principal); Z98.1 Arthrodesis status; Z79.4 Long term (current) use of insulin; Z87.891 Personal history of nicotine dependence; M54.9 Dorsalgia, unspecified; J44.9 Chronic obstructive pulmonary disease, unspecified; E11.9 Type 2 diabetes mellitus without complications; E78.2 Mixed hyperlipidemia; I10 Essential (primary) hypertension
CPT/HCPCS: 36415; 72158; 80053; 81001; 85025; 96374; 96375; 99284; J1100; J1171; J1885; J2270; J2360

== ENCOUNTER → 2025-04-11 13:14 | Outpatient (BNVA) | payer OTHER, MEDICAID, SELFPAY | PROVIDERS: PCP Family Medicine; Visit Provider Orthopaedic Surgery | DX: Z98.1 Arthrodesis status (principal); M54.9 Dorsalgia, unspecified | CPT/HCPCS: 72100; 99214 ==

== ENCOUNTER → 2025-04-22 10:37 | Outpatient (BNVA) | payer OTHER, MEDICAID, SELFPAY ==
[2025-06-21 10:49] VITALS: BP 143/94; BMI 45.6
== END ==
PROVIDERS: PCP Family Medicine; Referring Provider Orthopaedic Surgery; Visit Provider Nurse Practitioner Family
DX: M47.816 Spondylosis without myelopathy or radiculopathy, lumbar region (principal); M54.42 Lumbago with sciatica, left side; M54.41 Lumbago with sciatica, right side; G89.29 Other chronic pain
CPT/HCPCS: 99214

== ENCOUNTER 2025-05-14 12:39 | Oncology outpatient (recurring) (ONCR) | payer OTHER, MEDICAID, SELFPAY | END 2025-05-28 23:59 | disposition home or self-care (01) | LOC: ONCMED 12:39 | PROVIDERS: PCP Family Medicine; Visit Provider Radiology Radiation Oncology | DX: Z45.2 Encounter for adjustment and management of vascular access device (principal); Z95.828 Presence of other vascular implants and grafts | CPT/HCPCS: 96523 ==

== ENCOUNTER → 2025-05-27 09:54 | Outpatient (BNVA) | payer OTHER, MEDICAID, SELFPAY | PROVIDERS: PCP Family Medicine; Visit Provider Nurse Practitioner Family | DX: G43.909 Migraine, unspecified, not intractable, without status migrainosus (principal); M54.42 Lumbago with sciatica, left side; M54.41 Lumbago with sciatica, right side; G89.29 Other chronic pain | CPT/HCPCS: 99214 ==

== ENCOUNTER 2025-05-27 14:11 | Emergency (ER) | payer OTHER, MEDICAID, SELFPAY ==
--- NOTE | 2025-05-27 14:16 | ECG_ITS ---
[facility] Test Date: 2025-05-27 Pat Name: Lori Padron Department: Room: Gender: Female Solar Crew Member: : 1980 Requested By: Roxanne Dumont Order Number: [id number] Yayo MD: Sivakumar Tariq M.D. Measurements Intervals [place] Rate: 81 P: 12 WA: 207 QRS: 35 QRSD: 85 T: 29 QT: 379 QTc: 442 Interpretive Statements SINUS RHYTHM LOW QRS VOLTAGE IN PRECORDIAL LEADS [QRS DEFLECTION < 1.0 mV IN CHEST LEADS] POSSIBLE ANTERIOR MYOCARDIAL INFARCTION , PROBABLY OLD [30 ms Q WAVE IN V3/V4, OR R < 0.2 mV IN V4] Compared to ECG 11/27/2024 13:43:47 Myocardial infarct finding now present Electronically Signed On 05-30-2025 08:48:16 CDT by Sivakumar Tariq M.D. [id number]
[2025-05-27 14:18] VITALS: BP 137/82; PULSE 76; RESP 18; TEMP 36.4; O2SAT 96; BMI 47.9
--- OUTSIDE RECORDS SUMMARY | 2025-05-27 14:23 | XMS_ITS | Clinical Summary ---
Author Organization [facility] Address [address] [place]: Epic Prelude ADT [place] [address] Care Team Providers Care Ore Dressing Engineer Name Role Phone Unavailable Primary Care Provider [...] 5 mg tablet daily. 06/11/2022 Active azelas-fluticaso [id number] 137 mcg-50 mcg- 0.9 % kit,spray suspension [...] Active Active Problems No known active problems Social History Tobacco Use Types Packs/Day Years Used Date Smoking Tobacco: Former Cigarettes Smokeless Tobacco: Never Tobacco Cessation:Counseling Given: Not Answered Alcohol Use Standard Drinks/Week Comments Not Currently 0 (1 standard drink = 0.6 oz pur e alcohol) Feeling Safe Answer Date Recorded Are you in a relationship wi th someone who hurts you emotionally and/or physically? No 07/14/2023 Comments No Sex and Gender Information Value Date Recorded Sex Assigned at Not on file Legal Sex Female 5:17 AM SELLING SPECIALIST Gender Identity Not on file Sexual Orientation Not on file Last Filed Vital Signs Vital Sign Reading Time Taken Comments Blood Pressure 135/78 07/14/2023 9:45 PM SELLING SPECIALIST Pulse 80 07/14/2023 9:45 PM SELLING SPECIALIST Temperature 36.9 C (98.4 F) 07/14/2023 5:12 PM SELLING SPECIALIST Respiratory Rate 22 07/14/2023 9:45 PM SELLING SPECIALIST Oxygen Saturation 93% 07/14/2023 9:45 PM SELLING SPECIALIST Inhaled Oxygen Concentration - - Weight 139.1 kg (306 lb 9.6 oz) 07/14/2023 5:12 PM SELLING SPECIALIST Height 165.1 cm (5' 5 ) 07/14/2023 5:12 PM SELLING SPECIALIST Body Mass Index 51.02 07/14/2023 5:12 PM SELLING SPECIALIST Plan of Treatment Health Maintenance Due Date Last Done Comments HEPATITIS B VACCINES (1 of 3 - 19+ 3-dose series) 2001 HPV/Cotest (21-29) 2003 HPV VACCINES (1 - Risk 3-dose SCDM series) 2009 CERVICAL CANCER SCREENING 2012 HPV/Cotest (30-65) 2012 PAP SMEAR 2012 DTAP/TDAP/TD VACCINES (1 - Tdap) 02/24/2020 02/23/20 20 COVID-19 Vaccine (3 - Moderna risk series) 06/05/2021 05/08/2021, 04/10/2021 BREAST CANCER SCREENING 2022 INFLUENZA VACCINE (#1) 2025 07/03/2022, 2018 Insurance [facility] POS II
--- NOTE | 2025-05-27 14:24 | XR_ITS ---
WS: [id number] XR chest 1V portable [id number] REASON FOR EXAM: chest pain FINDINGS: Lungs are better expanded than on the previous examination of 11/27/2024. No acute pulmonary parenchymal or pleural abnormality is noted. The heart and mediastinum are within normal limits. The chest port and infusion catheter remain in proper position. Mild degenerative spondylosis in the mid and lower thoracic spine. XR/XR chest 1V portable [id number] IMPRESSION: No acute chest abnormality.
--- NOTE | 2025-05-27 14:57 | W.ED.CHESTPA ---
HPI - Chest Pain General: Chief Complaint: Chest Pain Stated Complaint: chest pain headaches n/v dizzyness fatigue Time Seen by Provider: 05/27/25 14:18 Source: patient Mode of arrival: wheelchair Limitations: no limitations History of Present Illness: Patient is a 45-year-old female with multiple comorbidities including CHF, OCD, HTN, ADHD, generalized anxiety disorder, hepatic steatosis, systemic lupus erythematous, hypothyroidism, COPD, obstructive sleep apnea, morbid obesity with a BMI of 47.9, bipolar disorder, PTSD, GERD, chronic back pain, diabetes, hyperlipidemia, neuralgia, chronic opioid use among others here for complaints of chest pain and headache. She states she was seen by her cork painter and grader this morning. They are starting her on Topamax for treatment of her headaches and did place a referral for neurology. She states following that appointment she began developing chest pain. She states she has had similar chest pains in the past that were related to pleurisy. She states she has had an angiogram within the last year or so that was reportedly normal (reviewed this-performed here 03/2024 with no blockages seen). She is not complaining of shortness of breath or difficulty breathing. She feels like pain is substernal and feels like a soreness. No fevers or recent illness. Vital signs are stable upon arrival. MD complaint: chest pain Onset (ago): hour(s) Timing of current episode: constant Prior episodes: Yes Onset: during rest Pain location: substernal Pain radiation: none Relieving factors: nothing Exacerbating factors: nothing Associated symptoms: Deny abdominal pain, dyspnea, fever(s), nausea, palpitations, syncope or vomiting Treatment prior to arrival: none Risk Factors: Coronary artery disease risk factors: hyperlipidemia and hypertension Thoracic aortic dissection risk factors: none Related Data Home Medications ?Medication ?Instructions ?Recorded ?Confirmed ziprasidone HCl 80 mg capsule 80 mg PO BID 08/24/22 05/27/25 buspirone 30 mg tablet 30 mg PO BID 08/26/23 05/27/25 trazodone 100 mg tablet 200 mg PO BEDTIME 04/11/24 05/27/25 pantoprazole 40 mg tablet,delayed 40 mg PO BID PRN Acid Reflux 06/04/24 05/27/25 release acetaminophen 325 mg tablet 650 mg PO QID PRN Fever Or Pain 11/27/24 05/27/25 (Tylenol) hydroxyzine pamoate 50 mg capsule 50 mg PO QID PRN anxiety 11/27/24 05/27/25 clonazepam 0.5 mg tablet 0.5 mg PO BEDTIME 05/27/25 05/27/25 gabapentin 600 mg tablet 600 mg PO TID 05/27/25 05/27/25 insulin glargine 100 unit/mL (3 60 unit SUBCUT QPM PRN blood sugar 05/27/25 05/27/25 mL) subcutaneous pen (Lantus Solostar U-100 Insulin) isosorbide mononitrate 30 mg 30 mg PO DAILY 05/27/25 05/27/25 tablet,extended release 24 hr levothyroxine 200 mcg tablet 200 mcg PO QAM 05/27/25 05/27/25 levothyroxine 25 mcg tablet 25 mcg PO QAM 05/27/25 05/27/25 oxcarbazepine 150 mg tablet 150 mg PO BID 05/27/25 05/27/25 oxcarbazepine 300 mg tablet 300 mg PO BID 05/27/25 05/27/25 valacyclovir 1 gram tablet 1,000 mg PO TID PRN Skin Irritation 05/27/25 05/27/25 (Valtrex) vilazodone 20 mg tablet 30 mg PO QAM 05/27/25 05/27/25 Previous Rx's ?Medication ?Instructions ?Recorded epinephrine 0.3 mg/0.3 mL 0.3 mg (0.3 mL) IM Q15M PRN 12/23/23 injection, auto-injector (EpiPen anaphylaxis #2 ea 2-Edward) albuterol sulfate 2.5 mg/3 mL 2.5 mg (3 mL) inhalation Q4H PRN 06/25/24 (0.083 %) solution for nebulization Shortness Of Breath #90 mL insulin aspart U-100 100 unit/mL 5 unit (0.05 mL) SUBCUT TID #15 mL 08/03/24 (3 mL) subcutaneous pen (Novolog FlexPen U-100 Insulin aspart) azathioprine 50 mg tablet 100 mg (2 x 50 mg) PO BID #120 tabs 01/16/25 hydroxychloroquine 200 mg tablet 200 mg PO BID #180 tabs 01/16/25 dapagliflozin propanediol 10 mg 10 mg PO DAILY #90 tabs 02/12/25 tablet (Farxiga) tirzepatide 15 mg/0.5 mL 15 mg (0.5 mL) SUBCUT Q7D 90 days 02/12/25 subcutaneous pen injector #6.5 mL (Rai) blood-glucose sensor (Dexcom G7 #3 ea 02/19/25 Sensor device) sacubitril 49 mg-valsartan 51 mg 1 tab PO BID #180 tabs 03/18/25 tablet (Entresto) fluticasone fur. 100 mcg-umeclid 1 inh inhalation DAILY #60 ea 04/12/25 62.5 mcg-vilant 25 mcg inhalat.powder (Trelegy Ellipta) montelukast 10 mg tablet 10 mg PO DAILY #90 tabs 04/12/25 (Singulair) oxycodone-acetaminophen 10 mg-325 1 tab PO Q6H PRN pain 30 days #120 05/02/25 mg tablet tabs bumetanide 2 mg tablet 2 mg PO BID #180 tabs 05/08/25 atorvastatin 20 mg tablet 20 mg PO DAILY #90 tabs 05/17/25 tizanidine 4 mg tablet 4 mg PO BID PRN muscle spasticity 05/22/25 #60 tabs topiramate 50 mg tablet 50 mg PO BID PRN nerve pain #60 05/27/25 tabs Allergies Allergy/AdvReac Type Severity Reaction Status Date / Time anifrolumab-fnia (From Allergy Severe hives Verified 05/27/25 14:21 Saphnelo) Alpha-Gal Allergy Intermediate ALGY-Rash Verified 05/27/25 14:21 (Whzaunkhw-Dkzin-2,3-Gala belimumab (From Benlysta) Allergy Intermediate rash and Verified 05/27/25 14:21 hives amoxicillin Allergy ALGY-Rash Verified 05/27/25 14:21 bee venom protein (honey bee) Allergy ALGY-Anaphy Verified 05/27/25 14:21 laxis cinnamon Allergy anaphylacti Verified 05/27/25 14:21 c desvenlafaxine (From Pristiq) Allergy Unknown Verified 05/27/25 14:21 fluoxetine (From Prozac) Allergy Unknown Verified 05/27/25 14:21 Latex, Natural Rubber Allergy ALGY-Rash Verified 05/27/25 14:21 oxytocin (From Pitocin) Allergy ADR-Itching Verified 05/27/25 14:21 Penicillins Allergy ALGY-Hives Verified 05/27/25 14:21 Sulfa (Sulfonamide Allergy ALGY-Rash Verified 05/27/25 14:21 Antibiotics) leflunomide AdvReac Intermediate gastric Verified 05/27/25 14:21 Review of Systems Const: Denies: fever(s), chills, body aches, fatigue or malaise Card: Reports: chest pain; Denies: palpitations, irregular heart rhythm, edema, swelling of feet/ankles, lightheadedness, syncope, pre-syncope, dyspnea on exertion, orthopnea, leg pain with exertion or acrocyanosis Resp: Denies: dyspnea GI: Denies: abdominal pain, nausea, vomiting or change in bowel habits : Denies: flank pain, dysuria or hematuria Musc: Reports: back pain (chronic); Denies: neck pain, extremity pain or joint pain Skin/Breast: Denies: rash Neuro: Reports: headache(s); Denies: numbness in extremities, weakness in extremities, sensory changes or difficulty walking PFS ED PFSH: Medical History Abscess of left thigh Adult BMI 50.0-59.9 kg/sq m Heart failure with preserved ejection fraction History of echocardiogram 03/2024 EF 60%, Grade I/IV, normal PAP, no LVH, RAP 5mmHg OCD (obsessive compulsive disorder) Hernia of fascia Abnormal mammogram of right breast Hyponatremia chronic, may be related to some medications, which are being adjusted by primary prescribers Hypertension Syncope ADHD Generalized anxiety disorder Fatty liver Fatigue B12 deficiency Lung injury associated with vaping Contact dermatitis SLE (systemic lupus erythematosus related syndrome) Hypothyroidism COPD (chronic obstructive pulmonary disease) Leukocytosis chronic Rosacea Positive double stranded DNA antibody test Labral tear of left hip joint KI (obstructive sleep apnea) Morbid obesity Bipolar 1 disorder PTSD (post-traumatic stress disorder) Chronic urticaria Insomnia Mild intermittent asthma Allergic rhinitis GERD (gastroesophageal reflux disease) Shingles 4th occurrence Hyperlipemia, mixed Helicobacter pylori gastritis Mandibular fracture Diabetes mellitus Type 2 Depression Surgical History History of left hip replacement History of cardiac catheterization 04/12/2024 Dr House: No disease noted in the Left Main, Left Anterior Descending, Right, or Circumflex coronary arteries. History of ankle surgery (02/08/24) By Dr Murphy: Left modified Brostr?m with internal brace, repair left peroneus brevis tendon split tear and peroneus longus tenosynovectomy, topaz achilles tendon with PRP injection Status post lumbar spinal fusion (05/23/24) Dr Han, L4-5 History of mandibular surgery For mandibular fracture H/O esophagogastroduodenoscopy (09/02/21) H/O thyroidectomy done due to multinodular goiter S/P cholecystectomy S/P tonsillectomy and adenoidectomy S/P breast lumpectomy Right breast lumpectomy for benign disease Previous section Family History Father Hypertension Cancer testicular Cardiac abnormality Mother Congestive heart failure (CHF) COPD (chronic obstructive pulmonary disease) Diabetes Cancer ovarian and uterine Family/Other Cancer Maternal aunt- HR2 breast Other CAD (coronary artery disease) Family history of premature coronary artery disease Hyperlipidemia Lung disease Psychiatric illness Rheumatoid arthritis Stroke Denies family history of Lupus Clotting disorder Dementia Chronic kidney disease (CKD) Anesthesia complication Bleeding disorder Social History Smoking and tobacco/nicotine status: never used tobacco/nicotine Quit status (tobacco/nicotine): has quit using Year quit tobacco: July Former quit date comment: Hx of 2 ppd X 25 years, started at age 16 yr. Alcohol intake: former Substance/Drug Use: never Adopted: No Caregiver/support person: No Lives independently: Yes Household members: spouse and family Housing: House Marital status: Marital status details: 26 years in 2023 Number of children: 2 Number of grandchildren: 1 Highest education level completed: Some College, No Degree service: No Current occupational status: employed Current occupation: [employer] Sexually active: Yes Do you think of yourself as: Straight/Heterosexual Current gender identity: Female Balbina/Jehovah'S Witness: Mandaen Special balbina needs: No Agree to transfusion: Yes Physical Exam Const: COMMON NORMALS: no acute distress, patient oriented x3, no limitations, alert and well nourished GENERAL APPEARANCE: cooperative NUTRITIONAL APPEARANCE: obese morbidly obese (BMI 47.9) HENMT: COMMON NORMALS: normocephalic and atraumatic HEAD & SCALP: normocephalic and atraumatic FACE & SINUS: face symmetric Neck/C-Spine: COMMON NORMALS: full ROM, no lymphadenopathy, supple and no meningeal signs Resp: COMMON NORMALS: normal respiratory effort and clear to auscultation bilaterally AUSCULTATION: clear to auscultation bilaterally Cardio: COMMON NORMALS: regular rate and regular rhythm RATE: regular rate RHYTHM: regular rhythm GI: COMMON NORMALS: Soft to palpation and non-tender PALPATION: Yes Soft to palpation Extremity: COMMON NORMALS: no clubbing, cyanosis or edema, no calf tenderness and no pedal edema GENERAL: Yes normal exam except as noted Neuro: MICHEAL COMA SCALE: document GCS findings [place] coma scale eye opening: Spontaneous [place] coma scale verbal response: Orientated Micheal coma scale motor response: Obey commands Micheal coma scale total score: 15 COMMON NORMALS: patient oriented x3 SENSORIUM/ORIENTATION: Yes alert MENINGEAL SIGNS: Yes no meningeal signs Skin: COMMON NORMALS: no rashes or lesions noted GENERAL SKIN EXAM: no rashes or lesions noted Course Vital Signs: Vital signs: Vital Signs Temperature 97.6 F 05/27/25 14:18 Pulse Rate 61 05/27/25 18:20 Respiratory Rate 18 05/27/25 14:18 Blood Pressure 165/99 05/27/25 18:20 Pulse Oximetry 90 05/27/25 18:20 Oxygen Delivery Me thod Room Air 05/27/25 18:20 MDM - Chest Pain Medical Decision Making Patient is a 45-year-old female here for chest pain and a headache. She was seen by her cork painter and grader this morning and had a referral for neurology placed and was started on Topamax for treatment of her headaches. Patient states she has had similar chest pains before. Baseline EKG and troponins are unremarkable. We did repeat these. She has a negative delta. Repeat EKG computer interpretation showing atrial fibrillation however this was reviewed with Dr. Ward who feels this is sinus rhythm. She has been normal sinus rhythm on the monitor throughout her stay. Remainder of her labs are benign. She clinically appears in no acute distress. She was treated for her headache and at time of discharge, feels like it is trending downward. She feels comfortable going home at this time. Recommend she follow-up with primary care later this week for reevaluation. Return to ED precautions discussed. Medical Records I reviewed the patient's medical records. Lab Data I reviewed the patient's lab results. 05/27/25 15:54 05/27/25 15:54 Radiology Impressions Chest X-Ray 05/27/25 14:24 IMPRESSION: No acute chest abnormality. Laboratory Results WBC 7.18 10^3/uL (3.29-11.43) 05/27/25 15:54 RBC 4.41 10^6/uL (3.85-5.65) 05/27/25 15:54 Hgb 12.30 g/dL (11.27-16.99) 05/27/25 15:54 Hct 37.1 % (36-47) 05/27/25 15:54 MCV 84.1 fl (85-98) L 05/27/25 15:54 MCH 27.9 pg (27-33) 05/27/25 15:54 MCHC 33.2 g/dL (30-55) 05/27/25 15:54 RDW 13.4 % (12.1-15.1) 05/27/25 15:54 Plt Count 286 10^3/cmm (157-399) 05/27/25 15:54 MPV 10.2 fL (7.4-10.4) 05/27/25 15:54 Neut % (Auto) 63.8 % 05/27/25 15:54 Lymph % (Auto) 22.0 % 05/27/25 15:54 [place] % (Auto) 10.2 % 05/27/25 15:54 Eos % (Auto) 1.4 % 05/27/25 15:54 Baso % (Auto) 1.3 % 05/27/25 15:54 Neut # (Auto) 4.59 10^3/uL (1.8-7.7) 05/27/25 15:54 Lymph # (Auto) 1.6 10^3/uL (0.8-4.8) 05/27/25 15:54 [place] # (Auto) 0.7 10^3/uL (0.2-0.9) 05/27/25 15:54 Eos # (Auto) 0.1 10^3/uL (0.0-0.8) 05/27/25 15:54 Baso # (Auto) 0.1 10^3/uL (0.0-0.1) 05/27/25 15:54 Nucleated RBC % (auto) 0 % 05/27/25 15:54 Nucleated RBCs # 0.0 /100WBC 05/27/25 15:54 Sodium 140 mmol/L (136-145) 05/27/25 15:54 Potassium 3.9 mmol/L (3.5-5.1) 05/27/25 15:54 Chloride 104 mmol/L (98-107) 05/27/25 15:54 Carbon Dioxide 27 mmol/L (22-29) 05/27/25 15:54 Anion Gap 12.9 (5-19) 05/27/25 15:54 BUN 7 mg/dL (6-20) 05/27/25 15:54 Creatinine 0.5 mg/dL (0.5-0.9) 05/27/25 15:54 GFR Calculation 134.7 mL/min (90-130) H 05/27/25 15:54 Glucose 99 mg/dL (65-115) 05/27/25 15:54 POC Glucose 84 mg/dL (70-110) 05/27/25 15:24 Calculated Osmolality 288 mOsm/kg (285-295) 05/27/25 15:54 Calcium 8.8 mg/dL (8.5-10.5) 05/27/25 15:54 Total Bilirubin 0.2 mg/dL (0.15-1.2) 05/27/25 15:54 AST 16 U/L (0-32) 05/27/25 15:54 ALT 15 U/L (0-33) 05/27/25 15:54 Alkaline Phosphatase 84 U/L (35-105) 05/27/25 15:54 Troponin T Baseline 8 ng/L (0-10) 05/27/25 15:54 Troponin T 120 Minute 6.88 ng/L (0-10) 05/27/25 18:15 Delta Troponin T -1.12 ABS# (0-10) L 05/27/25 18:15 Total Protein 6.4 g/dL (6.6-8.7) L 05/27/25 15:54 Albumin 4.1 g/dL (3.5-5.2) 05/27/25 15:54 Globulin 2.3 g/dL (1.3-4.6) 05/27/25 15:54 All radiology interpretation(s) finalized by discharge Discharge Plan Discharge Patient Disposition: Home Clinical Impression: Chest pain Qualifiers: Chest pain type: unspecified Qualified Code(s): R07.9 - Chest pain, unspecified Headache Qualifiers: Headache type: unspecified Headache chronicity pattern: acute headache Intractability: intractable Qualified Code(s): R51.9 - Headache, unspecified Condition: Stable Prescriptions: No Action trazodone 100 mg tablet 200 mg PO BEDTIME epinephrine [EpiPen 2-Edward] 0.3 mg/0.3 mL auto-injector 0.3 mg IM Q15M PRN (Reason: anaphylaxis) Qty: 2 0RF Rx Instructions: for 2 doses bumetanide 2 mg tablet 2 mg PO BID Qty: 180 1RF Rx Instructions: Take 1 tablet by mouth twice daily, may take an additional tab for weight gain more the 3 pounds in 1 day or 5 pounds in a week topiramate 50 mg tablet 50 mg PO BID PRN (Reason: nerve pain) Qty: 60 0RF azathioprine 50 mg tablet 100 mg PO BID Qty: 120 5RF hydroxychloroquine 200 mg tablet 200 mg PO BID Qty: 180 1RF Mounjaro 15 mg/0.5 mL pen injector 15 mg SUBCUT Q7D 90 Days Qty: 6.5 1RF Rx Instructions: dapagliflozin propanediol [Farxiga] 10 mg tablet 10 mg PO DAILY Qty: 90 1RF albuterol sulfate 2.5 mg /3 mL (0.083 %) solution for nebulization 2.5 mg inhalation Q4H PRN (Reason: Shortness Of Breath) Qty: 90 3RF insulin aspart U-100 [Novolog FlexPen U-100 Insulin] 100 unit/mL (3 mL) insulin pen 5 unit SUBCUT TID Qty: 15 1RF Rx Instructions: take before meals (DME) Dexcom G7 Sensor Device See Rx Instructions .ROUTE .COMPLEX Qty: 3 3RF Dose Instruction: CHANGE every 10 DAYS DIRECTED Rx Instructions: CHANGE every 10 DAYS DIRECTED Entresto 49-51 mg tablet 1 tab PO BID Qty: 180 1RF montelukast [Singulair] 10 mg tablet 10 mg PO DAILY Qty: 90 1RF Trelegy Ellipta 100-62.5-25 mcg blister with device 1 inh inhalation DAILY Qty: 60 3RF oxycodone-acetaminophen 10-325 mg tablet 1 tab PO Q6H MDD 6 PRN (Reason: pain) 30 Days Qty: 120 0RF atorvastatin 20 mg tablet 20 mg PO DAILY Qty: 90 0RF tizanidine 4 mg tablet 4 mg PO BID PRN (Reason: muscle spasticity) Qty: 60 0RF pantoprazole 40 mg Tablet,Delayed Release (Dr/Ec) 40 mg PO BID PRN (Reason: Acid Reflux) ziprasidone HCl 80 mg Capsule 80 mg PO BID buspirone 30 mg tablet 30 mg PO BID acetaminophen [Tylenol] 325 mg Tablet 650 mg PO QID PRN (Reason: Fever Or Pain) hydroxyzine pamoate 50 mg capsule 50 mg PO QID PRN (Reason: anxiety ) clonazepam 0.5 mg tablet 0.5 mg PO BEDTIME oxcarbazepine 150 mg tablet 150 mg PO BID Rx Instructions: along with 300mg [id number] total oxcarbazepine 300 mg tablet 300 mg PO BID Rx Instructions: along with 150mg [id number] total vilazodone 20 mg tablet 30 mg PO QAM gabapentin 600 mg tablet 600 mg PO TID valacyclovir [Valtrex] 1 gram tablet 1,000 mg PO TID PRN (Reason: Skin Irritation) isosorbide mononitrate 30 mg tablet extended release 24 hr 30 mg PO DAILY levothyroxine 25 mcg tablet 25 mcg PO QAM Rx Instructions: along with 200mcg [id number] total levothyroxine 200 mcg tablet 200 mcg PO QAM Rx Instructions: along with 25mcg [id number] total insulin glargine [Lantus Solostar U-100 Insulin] 100 unit/mL (3 mL) insulin pen 60 unit SUBCUT QPM PRN (Reason: blood sugar) Discharge Orders: Discharge ED (Routine); Ordered 05/27/25 Ordered By: Roxanne Dumont Referrals: Elan Kuhn MD [Primary Care Provider, Family Practice] Patient Instructions: Patient Portal & Vania Instructions Activity Restrictions/Additional Instructions: Blood work here was reassuring. Your baseline troponin was normal. We did repeat this at 2 hours and it continues to be normal which is reassuring. Your chest x-ray was unremarkable. I would like you to follow-up with primary care later this week for re-evaluation. You have already had a neurology referral placed for your headaches and have been started on Topamax from your cork painter and grader. 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
[2025-05-27] MEDS: ondansetron 2 mg/ML SDV 2 mL 4 MG IVP (15:19)
[2025-05-27] MEDS: diphenhydrAMINE 50 mg/mL SDV 1mL IVP (15:20)
[2025-05-27 16:33] LABS: Hematocrit 37.1 % (36-47); Hemoglobin 12.30 g/dL (11.27-16.99); Mean Corpuscular HGB Conc 33.2 g/dL (30-55); Mean Corpuscular Hemoglobin 27.9 pg (27-33); Mean Corpuscular Volume 84.1 fl (85-98); Nucleated Red Blood Cells % 0 %; Platelet Count 286 10^3/cmm (157-399); Red Blood Count 4.41 10^6/uL (3.85-5.65); White Blood Count 7.18 10^3/uL (3.29-11.43)
--- NOTE | 2025-05-27 16:39 | ECG_ITS ---
[facility]: 2025-05-27 Pat Name: Lori Padron Department: Room: Gender: Female Tag Stringer: : 1980 Requested By: Roxanne Dumont Order Number: [id number] Zee MD: Sivakumar Tariq M.D. Measurements Intervals [place] Rate: 64 P: 0 TX: 0 QRS: 50 QRSD: 109 T: 53 QT: 492 QTc: 508 Interpretive Statements ATRIAL FIBRILLATION LOW QRS VOLTAGE IN PRECORDIAL LEADS [QRS DEFLECTION < 1.0 mV IN CHEST LEADS] PROLONGED QT INTERVAL Compared to ECG 05/27/2025 14:16:33 Prolonged QT interval now present Sinus rhythm no longer present Myocardial infarct finding no longer present Electronically Signed On 05-30-2025 09:02:46 CDT by Sivakumar Tariq M.D. [email or web address]
[2025-05-27 16:54] LABS: Alanine Aminotransferase 15 U/L (0-33); Albumin Level 4.1 g/dL (3.5-5.2); Alkaline Phosphatase 84 U/L (35-105); Anion Gap 12.9 (5-19); Aspartate Amino Transferase 16 U/L (0-32); Blood Urea Nitrogen 7 mg/dL (6-20); Calcium 8.8 mg/dL (8.5-10.5); Carbon Dioxide 27 mmol/L (22-29); Chloride 104 mmol/L (98-107); Creatinine Clr Calc Pharmacy 198.0037; Globulin 2.3 g/dL (1.3-4.6); Glucose 99 mg/dL (65-115); Osmolality Calculated 288 mOsm/kg (285-295); Potassium 3.9 mmol/L (3.5-5.1); Sodium 140 mmol/L (136-145); Total Protein 6.4 g/dL (6.6-8.7)
[2025-05-27 17:06] LABS: Troponin(5th) Baseline 8 ng/L (0-10)
[2025-05-27 18:20] VITALS: BP 165/99; PULSE 61; O2SAT 90
[2025-05-27 18:37] LABS: Troponin 5 2HR 6.88 ng/L (0-10)
[2025-05-27 18:38] LABS: Troponin 5 2HR Delta -1.12 ABS# (0-10)
== END 2025-05-27 19:48 | disposition home or self-care (01) ==
PROVIDERS: Emergency Provider Physician Assistant; PCP Family Medicine
DX: R07.9 Chest pain, unspecified (principal); R51.9 Headache, unspecified; Z79.4 Long term (current) use of insulin; Z87.891 Personal history of nicotine dependence; E11.9 Type 2 diabetes mellitus without complications; E78.2 Mixed hyperlipidemia; J44.9 Chronic obstructive pulmonary disease, unspecified; I11.0 Hypertensive heart disease with heart failure; I50.30 Unspecified diastolic (congestive) heart failure
CPT/HCPCS: 36416; 71045; 80053; 82962; 84484; 85025; 93005; 96372; 96374; 96375; 99285; J1100; J1200; J1885; J2405; J3030; J7030

== ENCOUNTER → 2025-06-03 14:28 | Outpatient (BNVA) | payer OTHER, MEDICAID, SELFPAY | PROVIDERS: PCP Family Medicine; Visit Provider Internal Medicine Rheumatology | DX: Z09 Encounter for follow-up examination after completed treatment for conditions other than malignant neoplasm (principal); R76.89 Other specified abnormal immunological findings in serum; L71.9 Rosacea, unspecified; J96.01 Acute respiratory failure with hypoxia; G47.33 Obstructive sleep apnea (adult) (pediatric); M32.9 Systemic lupus erythematosus, unspecified; L25.9 Unspecified contact dermatitis, unspecified cause; U07.0 Vaping-related disorder; Z79.899 Other long term (current) drug therapy; R91.8 Other nonspecific abnormal finding of lung field; F17.291 Nicotine dependence, other tobacco product, in remission; R53.83 Other fatigue | CPT/HCPCS: 99214 ==

== ENCOUNTER → 2025-06-13 14:39 | Outpatient (BNVA) | payer OTHER, MEDICAID, SELFPAY | PROVIDERS: PCP Family Medicine; Visit Provider Nurse Practitioner Family | DX: M79.18 Myalgia, other site (principal); M54.42 Lumbago with sciatica, left side; M54.41 Lumbago with sciatica, right side; G89.29 Other chronic pain | CPT/HCPCS: 20553; 99214; J1010 ==

== ENCOUNTER 2025-06-16 12:26 | Emergency (ER) | payer OTHER, MEDICAID, SELFPAY ==
--- OUTSIDE RECORDS SUMMARY | 2024-06-23 04:00 | XMS_ITS ---
Author Organization [facility] Address [address] [facility] 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 Name Role Phone Hattie BYRNE, Elan Primary Care Provider Unavailab Farshad Barajas Unavailable [phone] Migration, Provider Unavailable Unavailable REASON FOR VISIT EMR-Ethan Encounters Encounter Location Date Provider Diagnosis Migrated_Facility 0 0 06/23/2024 Provider Migration Plan Of Treatment Next Appt Details Provider Name:Farshad Ordaz, 10/30/2025 01:10:00 PM, [address] [place] [address] DR EVELYN [address], [place], [address], Progress Notes * MILTON GUZMÁN IDOB:1979 (45 yo F)Acc No.[id number]:06/23/2024 Patient: Tye MILTON SHI I :1980 A ge:44 Y S ex:Female Address:[address] [place] [address] [address], [place] [address] Subjective: * Chief Complaints: * E MR-Ethan * * Date:
--- OUTSIDE RECORDS SUMMARY | 2024-06-24 04:00 | XMS_ITS ---
Author Organization [facility] Address [address] [place] [address] Care Team Providers Care Dental Laboratory Technician Name Role Phone Elan Kuhn MD Primary Care Provider Unavailab Farshad Barajas Unavailable [phone] Migration, Provider Unavailable Unavailable Allergies Allergen (clinical drug ingredient) Drug/Non Drug Allergy documented on EMR Reaction Allergy Type Onset Date Status oxytocin Pitocin Unknown Drug Allergy Active desvenlafaxine Pristiq Unknown Drug Allergy Ac tive fluoxetine PROzac Unknown Drug Allergy Active Bee Sting Unknown Allergy Active Cinnamon Cinnamon Unknown Allergy Active Latex Latex Unknown Allergy Active oxytocin Oxytocin Unknown Drug Allergy Active Penicillin Unknown Drug Allergy Active Tape Unknown Allergy Active REASON FOR VISIT EMR-Ethan Medications Medication SIG (Take, Route, Frequency, Duration) Notes Start Date End Date Status Lisinopril *Pick strength-form from [facility] for eRX* Active tramadol *Reorder from [facility] for eRx and Interaction Alerts* Active Buspirone *Reorder from [facility] for eRx and Interaction Alerts* Active clonazePAM 1 MG Tablet TAKE 1 TABLET BY MOUTH EVERY DAY NEEDED FOR anxiety Oral Active EPINEPHrine *Pick strength-form from [facility] for eRX* Active Ipratropium-Albuterol *Pick strength-form from [facility] for eRX* Active diphenhydramine (bulk) *Reorder from [facility] for eRx and Interaction Alerts* Active Dicyclomine HCl 20 MG Tablet TAKE 1 TABLET BY MOUTH FOUR TIMES DAILY FOR SEVEN DAYS NEEDED FOR abdominal cramping Oral Active Ozempic *Reorder from [facility] for eRx and Interaction Alerts* Active Methotrexate Sodium *Pick strength-form from [facility] for e[facility]* Active Benlysta 200 MG/ML Solution Prefilled Syringe inject 200mg SUBCUTANEOUSLY EVERY 7 DAYS FOR 12 weeks Subcutaneous Active Gabapentin *Pick strength-form from [facility] for e[facility]* Active Docusate Sodium *Pick strength-form from [facility] for eRX* Active atorvastatin *Reorder from [facility] for e[facility] and Interaction Alerts* Active Rexulti *Pick strength-form from [facility] for eRX* Active azelastine *Reorder from [facility] for eRx and Interaction Alerts* Active Singulair *Pick strength-form from [facility] for eRX* Active Ziprasidone HCl *Pick strength-form from [facility] for eRX* Active trazodone *Reorder from [facility] for eRx and Interaction Alerts* Active Trelegy Ellipta *Pick strength-form from [facility] for eRX* Active pantoprazole *Reorder from [facility] for eRx and Interaction Alerts* Active predniSONE *Pick strength-form from [facility] for eRX* Active Folic Acid *Pick strength-form from [facility] for eRX* Active CLOBETASOL *Reorder from [facility] for eRx and Interaction Alerts* Active Ondansetron *Pick strength-form from [facility] for eRX* Active Levothyroxine *Reorder from [facility] for eRx and Interaction Alerts* Active Furosemide *Pick strength-form from [facility] for eRX* Active Hydroxychloroquine *Reorder from [facility] for eRx and Interaction Alerts* Active Albuterol Sulfate *Pick strength-form from [facility] for eRX* Active OXcarbazepine *Pick strength-form from [facility] for eRX* Active Adderall XR *Pick strength-form from [facility] for eRX* Active Social History Social History Additional Details Category Social Info Options Details Migrated Social History Migrated Social History Alcoholic beverages? - No, Applying for disability? - No, Currently on disability? - No, Drug or substance abuse? - No, Involved in any legal proceedings or lawsuits? - No, Marital Status - , Nonprescription drug use? - No, Participation in detoxification or rehabilitation - No, Smoking - No, Working currently? 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 * Social History: M igrated Social History: M igrated Social History: Alcoholic beverages? - No, A pplying for disability? - No, C urrently on disability? - No, D rug or substance abuse? - No, I nvolved in any legal proceedings or lawsuits? - No, M arital Status - , N onprescription drug use? - No, P articipation in detoxification or rehabilitation - No, S moking - No, W orking currently? - Yes. * Medications: T akingDicyclomine HCl 20 MG Tablet TAKE 1 TABLET BY MOUTH FOUR TIMES DAILY FOR SEVEN DAYS NEEDED FOR abdominal cramping Oral CLOBETASOL , Notes to Pharmacist: *Reorder from [facility] for eRx and Interaction Alerts*Rexulti , Notes to Pharmacist: *Pick strength-form from [facility] for eRX*Buspirone , Notes to Pharmacist: *Reorder from [facility] for eRx and Interaction Alerts*atorvastatin , Notes to Pharmacist: *Reorder from [facility] for eRx and Interaction Alerts*tramadol , Notes to Pharmacist: *Reorder from [facility] for eRx and Interaction Alerts*Benlysta 200 MG/ML Solution Prefilled Syringe inject 200mg SUBCUTANEOUSLY EVERY 7 DAYS FOR 12 weeks Subcutaneous Gabapentin , Notes to Pharmacist: *Pick strength-form from [facility] for eRX*Methotrexate Sodium , Notes to Pharmacist: *[facility]*Folic Acid , Notes to Pharmacist: *Pick strength-form from [facility] for eRX*clonazePAM 1 MG Tablet TAKE 1 TABLET BY MOUTH EVERY DAY NEEDED FOR anxiety Oral Adderall XR , Notes to Pharmacist: *Pick strength-form from [facility] for e[facility]*Lisinopril , Notes to Pharmacist: *[facility]*Trelegy Ellipta , Notes to Pharmacist: *[facility]*Ozempic , Notes to Pharmacist: *[facility]*Ziprasidone HCl , Notes to Pharmacist: *[facility]*trazodone , Notes to Pharmacist: *[facility]*Albuterol Sulfate , Notes to Pharmacist: *[facility]*Ipratropium- Albuterol , Notes to Pharmacist: *[facility]*Singulair , Notes to Pharmacist: *[facility]*Hydroxychloroquine , Notes to Pharmacist: *[facility] Interaction Alert[facility]*EPINEPHrine , Notes to Pharmacist: *[facility]*pantoprazole , Notes to Pharmacist: *[facility] Interaction Alert[facility]*predniSONE , Notes to Pharmacist: *[facility]*diphenhydramine (bulk) , Notes to Pharmacist: *[facility] Interaction Alert[facility]*Furosemide , Notes to Pharmacist: *[facility]*Levothyroxine , Notes to Pharmacist: *[facility] Interaction Alert[facility]*OXcarbazepine , Notes to Pharmacist: *[facility]*Docusate Sodium , Notes to Pharmacist: *Pick strength-form from [facility] for eRX*azelastine , Notes to Pharmacist: *Reorder from [facility] for eRx and Interaction Alerts*Ondansetron , Notes to Pharmacist: *Pick strength-form from [facility] for eRX*Taking Dicyclomine HCl 20 MG Tablet TAKE 1 TABLET BY MOUTH FOUR TIMES DAILY FOR SEVEN DAYS NEEDED FOR abdominal cramping Oral Taking CLOBETASOL , Notes to Pharmacist: *Reorder from [facility] for eRx and Interaction Alerts*Taking Rexulti , Notes to Pharmacist: *Pick strength-form from [facility] for eRX*Taking Buspirone , Notes to Pharmacist: *Reorder from [facility] for eRx and Interaction Alerts*Taking atorvastatin , Notes to Pharmacist: *[facility]*Taking tramadol , Notes to Pharmacist: *[facility]*Taking Benlysta 200 MG/ML Solution Prefilled Syringe inject 200mg SUBCUTANEOUSLY EVERY 7 DAYS FOR 12 weeks Subcutaneous Taking Gabapentin , Notes to Pharmacist: *[facility]*Taking Methotrexate Sodium , Notes to Pharmacist: *[facility]*Taking Folic Acid , Notes to Pharmacist: *[facility]*Taking clonazePAM 1 MG Tablet TAKE 1 TABLET BY MOUTH EVERY DAY NEEDED FOR anxiety Oral Taking Adderall XR , Notes to Pharmacist: *[facility]*Taking Lisinopril , Notes to Pharmacist: *[facility]*Taking Trelegy Ellipta , Notes to Pharmacist: *[facility]*Taking Ozempic , Notes to Pharmacist: *[facility] Interaction [facility]*Taking Ziprasidone HCl , Notes to Pharmacist: *Pick strength-form from [facility] for eRX*Taking trazodone , Notes to Pharmacist: *[facility]*Taking Albuterol Sulfate , Notes to Pharmacist: *Pick strength-form from [facility] for eRX*Taking Ipratropium-Albuterol , Notes to Pharmacist: *Pick strength-form from [facility] for eRX*Taking Singulair , Notes to Pharmacist: *Pick strength-form from [facility] for eRX*Taking Hydroxychloroquine , Notes to Pharmacist: *Reorder from [facility] for eRx and Interaction Alerts*Taking EPINEPHrine , Notes to Pharmacist: *Pick strength-form from [facility] for eRX*Taking pantoprazole , Notes to Pharmacist: *Reorder from [facility] for eRx and Interaction Alerts*Taking predniSONE , Notes to Pharmacist: *Pick strength-form from [facility] for eRX*Taking diphenhydramine (bulk) , Notes to Pharmacist: *Reorder from [facility] for eRx and Interaction Alerts*Taking Furosemide , Notes to Pharmacist: *Pick strength-form from [facility] for eRX*Taking Levothyroxine , Notes to Pharmacist: *Reorder from [facility] for eRx and Interaction Alerts*Taking OXcarbazepine , Notes to Pharmacist: *Pick strength-form from [facility] for eRX*Taking Docusate Sodium , Notes to Pharmacist: *Pick strength-form from [facility] for eRX*Taking azelastine , Notes to Pharmacist: *Reorder from [facility] for eRx and Interaction Alerts*Taking Ondansetron , Notes to Pharmacist: *Pick strength-form from [facility] for eRX* * Allergies: P itocin: AllergyLatex: AllergyTape: AllergyBee Sting: AllergyCinnamon: AllergyPROzac: AllergyOxytocin: AllergyPristiq: AllergyPenicillin: Allergy * * Date:
--- OUTSIDE RECORDS SUMMARY | 2025-03-12 06:30 | XMS_ITS ---
Author Organization [facility] Address [address] [place] [address] Care Team Providers Care Icer Machine Operator Name Role Phone Elan Kuhn MD Primary Care Provider Unavailab Farshad Barajas Unavailable [phone] REASON FOR VISIT shortness of breath Encounters Encounter Location Date Provider Diagnosis [facility] [address] [place] [address] [place] [address] 03/12/2025 Farshad Ordaz Shortness of breath R06.02 ; Chronic hypoxic respiratory failure J96.11 and KI (obstructive sleep apnea) G47.33 Assessments Encounter Date Diagnosis (ICD Code) Assessment Notes Treatment Notes Treatment Clinical Notes Section Notes 03/12/2025 Shortness of breath (ICD-10 - R06.02) She is being evaluated by a slip cover sewer in [facility]. I am here as a backup in the event that she needs further management if she develops any respiratory failure or distress. She already has a scheduled PFT and right heart catheterization. I will request for records as soon as they are available. 03/12/2025 Chronic hypoxic respiratory failure (ICD-10 - J96.11) Continue oxygen to maintain saturation above 88% given history of COPD. This is to be confirmed under PFT. 03/12/2025 KI (obstructive sleep apnea) (ICD-10 - G47.33) Obtain copies of sleep study records from [place]. Patient to continue BiPAP. 03/12/2025 Other I, Jocelyn Rogel, am scribing for, and in the presence of Dr. Farshad Ordaz. I, Dr. Farshad Ordaz, personally performed the services described in this documentation, as scribed by Jocelyn Rogel in my presence, and it is both accurate and complete. Plan Of Treatment Treatment Notes Assessment Notes Shortness of breath She is being evaluat ed by a slip cover sewer in [facility]. I am here as a backup in the event that she needs further management if she develops any respiratory failure or distress. She already has a scheduled PFT and right heart catheterization. I will request for records as soon as they are available. Chronic hypoxic respiratory failure Cont inue oxygen to maintain saturation above 88% given history of COPD. This is to be confirmed under PFT. KI (obstructive sleep apnea) Obtain surgical endoscopist ies of sleep study records from [place]. Patient to continue BiPAP. Next Appt Details Provider Name:Farshad Ordaz, 10/30/2025 01:10:00 PM, [address] [place] [address] DR ACKERMAN, [place], [phone], History and Physical Notes * HPI (History of Present Illness) Category Sub-Category Detail Notes Category Not es Provider Note The patient is a 44-year-old female referred for evaluation and management of shortness of breath. She was seen by a slip cover sewer in [facility] in [place] and was diagnosed to have asthma COPD overlap. She was also diagnosed to have pulmonary hypertension. I reviewed the medical records and noted that she was diagnosed to have lupus on Plaquenil and rituximab. In addition she has sleep apnea maintained on BiPAP. Her echocardiogram from July 2022 shows grade 1 out of 3 diastolic dysfunction. On the assessment she was diagnosed to have NYHA III chronic diastolic heart failure and was started on Entresto. Lasix was also increased to 40 mg twice daily. She was also diagnosed to have stage II COPD maintained on Trelegy. She also carries a diagnosis of chronic hypoxemic respiratory failure maintained on 2 L oxygen. She said that her history began in 2021 when she was hospitalized for increasing breathlessness and diagnosed to have respiratory failure. She was hospitalized for 3 days. In December 2023 she was hospitalized for heart failure and underwent coronary angiography revealing pulmonary hypertension. She has seen a missileman within the last 3 years because of a complaint of a rash. She was diagnosed to have lupus. She also had a sleep study with an AHI in the 60s for which she has been using BiPAP. She is a known cigarette smoker smoking 2 packs a day for 30 years before finally quitting in 2021. She apparently has a history of childhood asthma. She was only maintained on albuterol. Now she is on Trelegy which she likes. -Last seen October 09, 2024; 5 mth f/u [place] [facility] [place] AHI 16.8 with 119 minutes of desaturation - Examination Category Sub-Category Detail Notes Category Not es General Examination GENERAL APPEARANCE: awake, n ot in respiratory distress EYES: extraocular muscles intact EARS: normal hearing HEART: no murmurs, rubs, ga llops, no edema LUNGS: no wheezes, rales, r honchi, diminished breath sounds throughout NEUROLOGIC: alert, oriented SKIN: warm and moist PSYCH: normal mood with marilu ropriate affect Progress Notes * MILTON GUZMÁN IDOB:1979 (45 yo F)Acc No.[id number]:03/12/2025 Progress Notes Patient: YOSEF MONTGOMERYNIFER I Provider: Kevin Ordaz MD :1980 A ge:44 Y S ex:Female Date:03/12/2025 Address:[address] [place], [place] [id number] Pcp:Elan Kuhn MD Subjective: * Chief Complaints: * S hortness of breath * HPI: P makenna Note: The patient is a 44-year-old female referred for evaluation and management of shortness of breath.? She was seen by a slip cover sewer in [facility] in [place] and was diagnosed to have asthma COPD overlap. She was also diagnosed to have pulmonary hypertension. I reviewed the medical records and noted that she was diagnosed to have lupus on Plaquenil and rituximab. In addition she has sleep apnea maintained on BiPAP. Her echocardiogram from July 2022 shows grade 1 out of 3 diastolic dysfunction. On the assessment she was diagnosed to have NYHA III chronic diastolic heart failure and was started on Entresto. Lasix was also increased to 40 mg twice daily. She was also diagnosed to have stage II COPD maintained on Trelegy. She also carries a diagnosis of chronic hypoxemic respiratory failure maintained on 2 L oxygen. She said that her history began in 2021 when she was hospitalized for increasing breathlessness and diagnosed to have respiratory failure. She was hospitalized for 3 days. In December 2023 she was hospitalized for heart failure and underwent coronary angiography revealing pulmonary hypertension. She has seen a missileman within the last 3 years because of a complaint of a rash. She was diagnosed to have lupus. She also had a sleep study with an AHI in the 60s for which she has been using BiPAP. She is a known cigarette smoker smoking 2 packs a day for 30 years before finally quitting in 2021. She apparently has a history of childhood asthma. She was only maintained on albuterol. Now she is on Trelegy which she likes. -Last seen October 09, 2024; 5 mth f/u -[place] [facility] [place] AHI 16.8 with 119 minutes of desaturation -. * ROS: Tanya jasmine of systems of chart has been reviewed and scanned in by me. Objective: * Examination: G eneral Examination: GENERAL APPEARANCE: a wake, not in respiratory distress.? EYES: e xtraocular muscles intact. EARS: n ormal hearing. SKIN: w arm and moist. HEART: n o murmurs, rubs, gallops, no edema. LUNGS: n o wheezes, rales, rhonchi, diminished breath sounds throughout. NEUROLOGIC: a lert, oriented. PSYCH: n ormal mood with appropriate affect. ? Assessment: * Assessment: 1. S hortness of breath - R06.02 (Primary) 2 . C hronic hypoxic respiratory failure - J96.11 3 . O SA (obstructive sleep apnea) - G47.33 Plan: * Treatment: 2. C hronic hypoxic respiratory failure Notes: Continue oxygen to maintain saturation above 88% given history of COPD. This is to be confirmed under PFT. 3. O SA (obstructive sleep apnea) Notes: Obtain copies of sleep study records from [place]. Patient to continue BiPAP. 4. O thers Clinical Notes:IJocelyn, am scribing for, and in the presence of Dr. Farshad Ordaz. I, Dr. Farshad Ordaz, personally performed the services described in this documentation, as scribed by Jocelyn Rogel in my presence, and it is both accurate and complete. Billing Information: * Procedure Codes: Care Plan Details* * Electronic signature of Tahira Ordaz MD on 06/16/2025 at 12:32 PM CDT Sign off status: Pending * Provider: Kevin Ordaz MD Date: 0 03/12/2025 Generated for Ricki huston/Ronnie/Marga on: 1 12:32 PM CDT
[2025-06-16 12:28] VITALS: BP 149/91; PULSE 88; RESP 16; TEMP 36.4; O2SAT 95; BMI 46.4
--- NOTE | 2025-06-16 12:32 | CTR_ITS ---
PROCEDURE INFORMATION: Exam: CT Head Without Contrast Exam date and time: 06/16/2025 12:41 PM Age: 45 years old Clinical indication: Pain; Headache; Additional info: Severe headache TECHNIQUE: Imaging protocol: Computed tomography of the head without contrast. Radiation optimization: All CT scans at this facility use at least one of these dose optimization techniques: automated exposure control; mA and/or kV adjustment per patient size (includes targeted exams where dose is matched to clinical indication); or iterative reconstruction. COMPARISON: MR angio head wo con [id number] 03/13/2024 1:17 PM RADIATION DOSE METRICS: Total DLP (mGy-cm): 1095.48 FINDINGS: Brain: Normal. No hemorrhage. Unremarkable white matter. No mass effect. Cerebral ventricles: No ventriculomegaly. Paranasal sinuses: Visualized sinuses are unremarkable. No fluid levels. Mastoid air cells: Visualized mastoid air cells are well aerated. Bones: Unremarkable. No acute fracture. Soft tissues: Unremarkable. CT/CT head wo con* [id number] IMPRESSION: No acute intracranial abnormality.
--- NOTE | 2025-06-16 12:32 | XRR_ITS ---
PROCEDURE INFORMATION: Exam: XR Chest Exam date and time: 06/16/2025 12:43 PM Age: 45 years old Clinical indication: Other: Weakness; Prior surgery; Surgery date: 6+ months; Surgery type: RT lumpectomy (benign), port insertion (lupus infusions) TECHNIQUE: Imaging protocol: Radiologic exam of the chest. Views: 1 view. COMPARISON: CR XR chest 1V portable [id number] 05/27/2025 2:45 PM FINDINGS: Tubes, catheters and devices: Right-sided Port-A-Cath is present with the tip in the SVC. Lungs: Unremarkable. No consolidation. Pleural spaces: Unremarkable. No pleural effusion. No pneumothorax. Heart/Mediastinum: Unremarkable. No cardiomegaly. Bones/joints: Unremarkable. XR/XR chest 1V portable [id number] IMPRESSION: Port-A-Cath in place. No pneumothorax identified.
--- OUTSIDE RECORDS SUMMARY | 2025-06-16 12:32 | XMS_ITS | Patient Health Record ---
Author Organization [facility] Address [address] [place] [address] Care Team Providers Care Industrial Welder Name Role Phone Hattie BYRNE, Elan Primary Care Provider Unavailab Farshad Barajas Unavailable [phone] Tee Beaver Unavailable [phone] Migration, Provider Unavailable Unavailable Sung Foss Unavailable [phone] Allergies Allergen (clinical drug ingredient) Drug/Non Drug [...] Pulmonary Hypertension, Hypoxemia requiring O2, Shingles, COPD 1/-3wks per Sushma Scheduled 10/09/2024 @ 10:[address] Jackson- From [place], [place] Diagnosis 1 Other specified symp toms and signs involving the circulatory and respiratory systems (R09.89) Diagnosis 2 Hypoxemia (R09.02) Diagnosis 3 Dependence on supple mental oxygen (Z99.81) Diagnosis 4 Zoster without compl ications (B02.9) Diagnosis 5 Chronic obstructive pulmonary disease, unspecified COPD type (J44.9) Referring Provider First Name CONOR Referring Provider Last Name BRITTANY Referring Provider Speciality Nurse Inna borges Referred Organization [facility] Referred Provider Farshad Ordaz Referred Address [address],[place], [place],[address],[place] Referred Provider Specialty Pulmonary Di seases General Notes Makenna Dos Santos 09/18 11:57:58 AM >09/18-[facility] medical records is sending CXR report. Radiology is [facility].-Received report in [facility].-Gave Sushma report., Makenna Dos Santos 09/20/2024 04:01:28 PM >Scheduled 10/09/2024 @ 10:30 AM Referral Priority Routine Medications Medication SIG (Take, Route, Frequency, Duration) Notes Start Date End Date Status Levothyroxine Sodium 200 MCG Tablet 1 tablet in the morning on an empty stomach Orally Once a day Active Leflunomide 20 MG Tablet Oral; Duration: 30 Days Active Lisinopril 20 MG Tablet 1 tablet Orally Once a day Not-Taking Benlysta 200 MG/ML Solution Prefilled Syringe inject 200mg SUBCUTANEOUSLY EVERY 7 DAYS FOR 12 weeks Subcutaneous Not-Taking hydrOXYzine Pamoate 50 MG Capsule take 1 capsule BY MOUTH THREE TIMES DAILY NEEDED FOR ANXIETY Oral; Duration: 30 Days Active Amphetamine-Dextroamphet ER 30 MG Capsule Extended Release 24 Hour take 1 capsule BY MOUTH EVERY MORNING FOR adhd Oral; Duration: 30 Days Not-Taking Hydroxychloroquine Sulfate 200 MG Tablet TAKE 1 TABLET BY MOUTH TWICE DAILY Oral; Duration: 30 Days Active Ziprasidone HCl 80 MG Capsule 1 capsule with food Orally Twice a day Active Gabapentin 600 MG Tablet 1 capsule Orally BID Active Trelegy Ellipta 100-62.5-25 MCG/ACT Aerosol Powder Breath Activated INHALE 1 PUFF EVERY DAY Inhalation; Duration: 30 Days Active Docusate Sodium 250 MG Capsule 1 capsule as needed Orally BID Active traZODone HCl 100 MG Tablet Oral; Duration: 30 Days Active Dicyclomine HCl 20 MG Tablet TAKE 1 TABLET BY MOUTH FOUR TIMES DAILY FOR SEVEN DAYS NEEDED FOR abdominal cramping Oral Active Symbicort 80-4.5 MCG/ACT Aerosol Inhalation; Duration: 30 Days Not-Taking OXcarbazepine 600 MG Tablet Oral; Duration: 30 Days Active Montelukast Sodium 10 MG Tablet TAKE 1 TABLET BY MOUTH EVERY DAY Oral; Duration: 30 Days Active Diclofenac Sodium 75 MG Tablet Delayed Release Oral; Duration: 30 Days Active Pantoprazole Sodium 40 MG Tablet Delayed Release TAKE ONE TABLET BY MOUTH TWICE DAILY Oral; Duration: 30 Days Active clonazePAM 1 MG Tablet TAKE 1 TABLET BY MOUTH EVERY DAY NEEDED FOR anxiety Oral Active busPIRone HCl 30 MG Tablet 1 tablet Oral ly Twice a day Active Atorvastatin Calcium 20 MG Tablet 1 tablet Orally Once a day Active Albuterol Sulfate HFA 108 (90 Base) MCG/ACT Aerosol Solution Inhalation; Duration: 20 Days Active Albuterol Sulfate (2.5 MG/3ML) 0.083% Nebulization Solution 3 mL as needed Inhalation 4 times a day as needed; Duration: 30 days 05/02/2025 Active Social History Social History Depression Screening [...] W/U Status Risk Notes Problem Leukemoid reaction (02549691) Leukemoid reaction (D72.823) Active confirmed Problem Leukocytosis (052920256) Elevated white blood cell count, unspecified (D72.829) Active confirmed Problem Dependence on supplemental oxygen (460772093441) Dependence on supplemental oxygen (Z99.81) Active confirmed Problem Nausea and vomiting (62183319) Nausea and vomiting, intractability of vomiting not specified, unspecified vomiting type (R11.2) Active confirmed Problem Obstructive sleep apnea syndrome (15637153) KI (obstructive sleep apnea) (G47.33) Active confirmed Problem Eruption of skin (791195797) Rash and nonspecific skin eruption (R21) Active confirmed Problem Urticaria (660551010) Urticaria (L50.9) Active confirmed Problem Chronic obstructive pulmonary disease (28547331) Stage 2 moderate COPD by GOLD classification (J44.9) Active confirmed Problem Non-Hodgkin lymphoma (880786242) Lymphoma, unspecified body region, unspecified lymphoma type (C85.90) Active confirmed Problem Skin sensation disturbance (46771311) Left leg paresthesias (R20.2) Active confirmed Problem Lymphoma of maury d organ excluding spleen, unspecified lymphoma type (C85.99) Active confirmed Problem Articular cartilage disorder of the pelvic region and thigh (670190079) Degenerative tear of acetabular labrum of left hip (M24.152) Active confirmed Problem Chronic respiratory failure (12040666) Chronic hypoxic respiratory failure (J96.11) Active confirmed Vital Signs Heart Rate 74 /min 05/02/2025 Temperature 96.6 degrees Fahrenheit 10/09/2024 Respiratory Rate 20 /min 05/02/2025 Height-cm 165.1 cm 05/02/2025 Blood pressure diastolic 67 mm Hg 05/02/2025 Oximetry 96 % 05/02/2025 Weight-kg 133.8 kg 05/02/2025 Height 65.00 in 05/02/2025 Blood pressure systolic 110 mm Hg 05/02/2025 Weight 294.98 lbs 05/02/2025 BMI 49.08 kg/m2 05/02/2025 Procedures Procedure Date Ordered Date Performed Result Body Sit e Overnight Oximetry 05/02/2025 N/A Encounters Encounter Location Date Provider Diagnosis [facility] [address] [place] [address] 10/09/2024 Farshad Ordaz Shortness of breath R06.02 ; Chronic hypoxic respiratory failure J96.11 and KI (obstructive sleep apnea) G47.[address] [place] [address] 11/29/2024 Sung Foss Tear of right acetabular labrum, initial encounter S73.191A [facility] [address] [place] [address] 05/02/2025 Farshad Ordaz Shortness of breath R06.02 ; Stage 2 moderate COPD by GOLD classification J44.9 ; Chronic hypoxic respiratory failure J96.11 and KI (obstructive sleep apnea) G47.33 Migrated_Facility 0 0 06/23/2024 Provider Migration Migrated[facility]Facility 0 0 06/24/2024 Provider Migration [address] [place] [address] 11/21/2024 Tee Beaver [facility] [address] [place] [address] [place] [address] 03/06/2025 Farshad Ordaz [facility] [address] [place] [address] 03/11/2025 Farshadkevin Ordaz [facility] [address] [place] [address] 04/11/2025 Farshad Ordaz [facility] [address] [place] [address] 05/03/2025 [facility] [address] [place] [address] 06/06/2025 Farshad Ordaz KI (obstructive sleep apnea) G47.33 Assessments Encounter Date Diagnosis (ICD Code) Assessment Notes Treatment Notes Treatment Clinical Notes Section Notes 06/06/2025 KI (obstructive sleep apnea) (ICD-10 - G47.33) 05/02/2025 Shortness of breath (ICD-10 - R06.02) Patient states she has a PFT and Right heart cath scheduled at [facility] in [place] in July. I will request these once completed. 05/02/2025 Stage 2 moderate COPD by GOLD classification (ICD-10 - J44.9) Continue Trelegy. Stop DuoNeb. I have informed her that this should not be taken with Trelegy. I will send a prescription for Albuterol only for her Nebulizer. 10/09/2024 Chronic hypoxic respiratory failure (ICD-10 - [...] help her. Recheck on appearing basis. 10/09/2024 Shortness of breath (ICD-10 - R06.02) She is being evaluated by a surgical services manager in [facility]. I am here as a backup in the event that she needs further management if she develops any respiratory failure or distress. She already has a scheduled PFT and right heart catheterization. I will request for records as soon as they are available. 10/09/2024 KI (obstructive sleep apnea) (ICD-10 - G47.33) Obtain copies of sleep study records from [facility]. Patient to continue BiPAP. 05/02/2025 Chronic hypoxic respiratory failure (ICD-10 - J96.11) She is currently not requiring oxygen. She does not have oxygen available at home. Obtain overnight oximetry while on CPAP. 05/02/2025 KI (obstructive sleep apnea) (ICD-10 - G47.33) She clarified with me that she actually uses a CPAP and not a BiPAP. Obtain compliance report prior to next visit. DME: HOME 10/09/2024 Other Bandar, Jocelyn Rogel am scribing for, and in the presence of Dr. Farshad Ordaz. I, Dr. Farshad Ordaz, personally performed the services described in this documentation , as scribed by Jocelyn Rogel in my presence, and it is both accurate and complete. 05/02/2025 Other Jocelyn Portillo am scribing for, and in the presence of Dr. Farshad Ordaz. I, Dr. Farshad Ordaz, personally performed the services described in this documentation , as scribed by Jocelyn Rogel in my presence, and it is both accurate and complete. Plan Of Treatment Pending Test Test Name Order Date IgG [id number] 06/18/2021 IgG [id number] 07/02/2021 CMV DNA-PCR QUANT [id number] 07/16/2021 Microscopic Urine [id number] 06/18/2021 Sleep Study with [id number] 06/06/2025 Overnight Oximetry 05/02/2025 Next Appt Details Provider Name:Farshad Ordaz, 10/30/2025 01:10:00 PM, [address] [place] [address] [address], [place], [address], Insurance Providers Payer Name Payer Address Payer Phone Subscriber Number Group Number Insured Name Patient Relationship to Insured Coverage Start Date Coverage End Date [address] [address] [place] [address] [id number] MILTON GUZMÁN Self - patient is the insured [facility] [employer] [address] [place] [address] [id number] MILTON GUZMÁN Self - patient is the insured [place] Medicaid [address] [place] [address] [id number] MILTON GUZMÁN Self - patient is the insured Medical (General) History Medical History History ICD Code Chicken Pox Pneumonia migraine headaches type II diabetes hernia Back Trouble hypertension hemorrhoids asthma eczema bronchitis anxiety COPD depression fatty liver GERD Hypothyroidism kidney stones sleep apnea thyroid nodule bladder infection hyperlipidemia Lupus sle shingles Arthritis Anemia Surgical History Surgery Date(Month/Year) r breast lumpectomy 2003 tonsil and adnoids 1997 c section 12/04/2001 jaw gallbladder removal 2007 thermal ablation C section 08/17/2005 thyroid 08/09/2018 Tonsillectomy, and adenoidectomy Since 991996 section Since 2001 2004 Breast lumpectomy Since 2003 cholecystectomy Since 2006 thyroid surgery Since 2017 Left Hip Surgery Since 2022 Hospitalization History Reason Date(Month/Year) pneumonia 2019 respiratory failure with hypoxia 022 pneumonia 07/26/2021
--- OUTSIDE RECORDS SUMMARY | 2025-06-16 12:32 | XMS_ITS | Clinical Summary ---
Author Organization [facility] Address [address] [place]: Epic Prelude ADT [place] [address] Care Team Providers Care Ear Mold Laboratory Technician Name Role Phone Unavailable Primary [...] 5 mg tablet daily. 06/11/2022 Active azelas-fluticaso iv-[id number]-[id number] 137 mcg-50 mcg- 0.9 % kit,spray suspension [...] on file Legal Sex Female 5:17 AM PHOTOGRAPHIC DOUBLE Gender Identity Not on file Sexual Orientation Not on file Last Filed Vital Signs Vital Sign Reading Time Taken Comments Blood Pressure 135/78 07/14/2023 9:45 PM PHOTOGRAPHIC DOUBLE Pulse 80 07/14/2023 9:45 PM PHOTOGRAPHIC DOUBLE Temperature 36.9 C (98.4 F) 07/14/2023 5:12 PM PHOTOGRAPHIC DOUBLE Respiratory Rate 22 07/14/2023 9:45 PM PHOTOGRAPHIC DOUBLE Oxygen Saturation 93% 07/14/2023 9:45 PM PHOTOGRAPHIC DOUBLE Inhaled Oxygen Concentration - - Weight 139.1 kg (306 lb 9.6 oz) 07/14/2023 5:12 PM PHOTOGRAPHIC DOUBLE Height 165.1 cm (5' 5 ) 07/14/2023 5:12 PM PHOTOGRAPHIC DOUBLE Body Mass Index 51.02 07/14/2023 5:12 PM PHOTOGRAPHIC DOUBLE Plan of Treatment Health Maintenance Due Date [...] INFLUENZA VACCINE (#1) 2025 07/03/2022, 2018 Insurance [facility] POS II
--- NOTE | 2025-06-16 12:34 | W.ED.SYNCOPE ---
HPI - Syncope General: Chief Complaint: Syncope Stated Complaint: passed out last night high bp n/v dirrhea Time Seen by Provider: 06/16/25 12:30 History of Present Illness: 45-year-old female with a history of morbid obesity, migraine headaches, OCD, hypertension, anxiety, lupus, hypothyroidism, COPD, obstructive sleep apnea, bipolar disorder, and diabetes who presents to the emergency room with a headache, near syncope and lightheadedness. Said she did pass out last night and she is been lightheaded today. Her blood pressures were low at home. Blood pressure is 150/90 here. Says she hit the back of her head but is not on any blood thinners. No chest pain. No cough. No fever. No abdominal pain. Related Data Home Medications ?Medication ?Instructions ?Recorded ?Confirmed ziprasidone HCl 80 mg capsule 80 mg PO BID 08/24/22 06/13/25 buspirone 30 mg tablet 30 mg PO BID 08/26/23 06/13/25 trazodone 100 mg tablet 200 mg PO BEDTIME 04/11/24 06/13/25 pantoprazole 40 mg tablet,delayed 40 mg PO BID PRN Acid Reflux 06/04/24 06/13/25 release acetaminophen 325 mg tablet 650 mg PO QID PRN Fever Or Pain 11/27/24 06/13/25 (Tylenol) hydroxyzine pamoate 50 mg capsule 50 mg PO QID PRN anxiety 11/27/24 06/13/25 clonazepam 0.5 mg tablet 0.5 mg PO BEDTIME 05/27/25 06/13/25 gabapentin 600 mg tablet 600 mg PO TID 05/27/25 06/13/25 insulin glargine 100 unit/mL (3 60 unit SUBCUT QPM PRN blood sugar 05/27/25 06/13/25 mL) subcutaneous pen (Lantus Solostar U-100 Insulin) isosorbide mononitrate 30 mg 30 mg PO DAILY 05/27/25 06/13/25 tablet,extended release 24 hr levothyroxine 200 mcg tablet 200 mcg PO QAM 05/27/25 06/13/25 levothyroxine 25 mcg tablet 25 mcg PO QAM 05/27/25 06/13/25 oxcarbazepine 150 mg tablet 150 mg PO BID 05/27/25 06/13/25 oxcarbazepine 300 mg tablet 300 mg PO BID 05/27/25 06/13/25 vilazodone 20 mg tablet 30 mg PO QAM 05/27/25 06/13/25 Previous Rx's ?Medication ?Instructions ?Recorded epinephrine 0.3 mg/0.3 mL 0.3 mg (0.3 mL) IM Q15M PRN 12/23/23 injection, auto-injector (EpiPen anaphylaxis #2 ea 2-Edward) albuterol sulfate 2.5 mg/3 mL 2.5 mg (3 mL) inhalation Q4H PRN 06/25/24 (0.083 %) solution for nebulization Shortness Of Breath #90 mL insulin aspart U-100 100 unit/mL 5 unit (0.05 mL) SUBCUT TID #15 mL 08/03/24 (3 mL) subcutaneous pen (Novolog FlexPen U-100 Insulin aspart) dapagliflozin propanediol 10 mg 10 mg PO DAILY #90 tabs 02/12/25 tablet (Farxiga) tirzepatide 15 mg/0.5 mL 15 mg (0.5 mL) SUBCUT Q7D 90 days 02/12/25 subcutaneous pen injector #6.5 mL (Mounjaro) sacubitril 49 mg-valsartan 51 mg 1 tab PO BID #180 tabs 03/18/25 tablet (Entresto) fluticasone fur. 100 mcg-umeclid 1 inh inhalation DAILY #60 ea 04/12/25 62.5 mcg-vilant 25 mcg inhalat.powder (Trelegy Ellipta) montelukast 10 mg tablet 10 mg PO DAILY #90 tabs 04/12/25 (Singulair) oxycodone-acetaminophen 10 mg-325 1 tab PO Q6H PRN pain 30 days #120 05/02/25 mg tablet tabs bumetanide 2 mg tablet 2 mg PO BID #180 tabs 05/08/25 atorvastatin 20 mg tablet 20 mg PO DAILY #90 tabs 05/17/25 tizanidine 4 mg tablet 4 mg PO BID PRN muscle spasticity 05/22/25 #60 tabs topiramate 50 mg tablet 50 mg PO BID PRN nerve pain #60 05/27/25 tabs azathioprine 50 mg tablet 100 mg (2 x 50 mg) PO BID #360 tabs 06/03/25 hydroxychloroquine 200 mg tablet 200 mg PO BID #180 tabs 06/03/25 ondansetron HCl 8 mg tablet 8 mg PO Q8H nausea/vomiting #30 06/03/25 tabs ketoconazole 200 mg tablet 400 mg (2 x 200 mg) PO DAILY 14 06/12/25 days #28 tabs blood-glucose sensor (Dexcom G7 #9 ea 06/14/25 Sensor device) Allergies Allergy/AdvReac Type Severity Reaction Status Date / Time anifrolumab-fnia (From Allergy Severe hives Verified 06/13/25 15:36 Saphnelo) Alpha-Gal Allergy Intermediate ALGY-Rash Verified 06/13/25 15:36 (Lyvtxcrms-Dnkle-1,3-Gala belimumab (From Benlysta) Allergy Intermediate rash and Verified 06/13/25 15:36 hives amoxicillin Allergy ALGY-Rash Verified 06/13/25 15:36 bee venom protein (honey bee) Allergy ALGY-Anaphy Verified 06/13/25 15:36 laxis cinnamon Allergy anaphylacti Verified 06/13/25 15:36 c desvenlafaxine (From Pristiq) Allergy Unknown Verified 06/13/25 15:36 fluoxetine (From Prozac) Allergy Unknown Verified 06/13/25 15:36 Latex, Natural Rubber Allergy ALGY-Rash Verified 06/13/25 15:36 oxytocin (From Pitocin) Allergy ADR-Itching Verified 06/13/25 15:36 Penicillins Allergy ALGY-Hives Verified 06/13/25 15:36 Sulfa (Sulfonamide Allergy ALGY-Rash Verified 06/13/25 15:36 Antibiotics) leflunomide AdvReac Intermediate gastric Verified 06/13/25 15:36 Review of Systems Narrative: Constitutional symptoms: Negative except as documented in HPI. Skin symptoms: Negative except as documented in HPI. Eye symptoms: Negative except as documented in HPI. ENMT symptoms: Negative except as documented in HPI. Respiratory symptoms: Negative except as documented in HPI. Cardiovascular symptoms: Negative except as documented in HPI. Gastrointestinal symptoms: Negative except as documented in HPI. Genitourinary symptoms: Negative except as documented in HPI. Musculoskeletal symptoms: Negative except as documented in HPI. Neurologic symptoms: Negative except as documented in HPI. Psychiatric symptoms: Negative except as documented in HPI. Endocrine symptoms: Negative except as documented in HPI. PFS ED PFSH: Medical History (Updated 06/16/25 @ 14:38 by Anamaria Ward MD) Abscess of left thigh Adult BMI 50.0-59.9 kg/sq m Heart failure with preserved ejection fraction History of echocardiogram 03/2024 EF 60%, Grade I/IV, normal PAP, no LVH, RAP 5mmHg OCD (obsessive compulsive disorder) Hernia of fascia Abnormal mammogram of right breast Hyponatremia chronic, may be related to some medications, which are being adjusted by primary prescribers Hypertension Syncope ADHD Generalized anxiety disorder Fatty liver Fatigue B12 deficiency Lung injury associated with vaping Contact dermatitis SLE (systemic lupus erythematosus related syndrome) Hypothyroidism COPD (chronic obstructive pulmonary disease) Leukocytosis chronic Rosacea Positive double stranded DNA antibody test Labral tear of left hip joint KI (obstructive sleep apnea) Morbid obesity Bipolar 1 disorder PTSD (post-traumatic stress disorder) Chronic urticaria Insomnia Mild intermittent asthma Allergic rhinitis GERD (gastroesophageal reflux disease) Shingles 4th occurrence Hyperlipemia, mixed Helicobacter pylori gastritis Mandibular fracture Diabetes mellitus Type 2 Depression Surgical History History of left hip replacement History of cardiac catheterization 04/12/2024 Dr House: No disease noted in the Left Main, Left Anterior Descending, Right, or Circumflex coronary arteries. History of ankle surgery (02/08/24) By Dr Murphy: Left modified Brostr?m with internal brace, repair left peroneus brevis tendon split tear and peroneus longus tenosynovectomy, topaz achilles tendon with PRP injection Status post lumbar spinal fusion (05/23/24) Dr Han, L4-5 History of mandibular surgery For mandibular fracture H/O esophagogastroduodenoscopy (09/02/21) H/O thyroidectomy done due to multinodular goiter S/P cholecystectomy S/P tonsillectomy and adenoidectomy S/P breast lumpectomy Right breast lumpectomy for benign disease Previous section Family History Father Hypertension Cancer testicular Cardiac abnormality Mother Congestive heart failure (CHF) COPD (chronic obstructive pulmonary disease) Diabetes Cancer ovarian and uterine Family/Other Cancer Maternal aunt- HR2 breast Other CAD (coronary artery disease) Family history of premature coronary artery disease Hyperlipidemia Lung disease Psychiatric illness Rheumatoid arthritis Stroke Denies family history of Lupus Clotting disorder Dementia Chronic kidney disease (CKD) Anesthesia complication Bleeding disorder Social History Smoking and tobacco/nicotine status: former use of tobacco/nicotine Quit status (tobacco/nicotine): has quit using Year quit tobacco: July Former quit date comment: Hx of 2 ppd X 25 years, started at age 16 yr. Alcohol intake: former Substance/Drug Use: never Adopted: No Caregiver/support person: No Lives independently: Yes Household members: spouse and family Housing: House Marital status: Marital status details: 26 years in 2023 Number of children: 2 Number of grandchildren: 1 Highest education level completed: Some College, No Degree service: No Current occupational status: employed Current occupation: [employer] Sexually active: Yes Do you think of yourself as: Straight/Heterosexual Current gender identity: Female Balbina/Cheondoism: Christianity Special balbina needs: No Agree to transfusion: Yes Physical Exam Narrative: EXAM NARRATIVE: General: Alert, no acute distress. Skin: Warm, dry. Head: Normocephalic, atraumatic. Neck: Supple, trachea midline. Eye: Extraocular movements are intact. Ears, nose, mouth and throat: mucosa moist. Cardiovascular: Regular, Normal peripheral perfusion. Respiratory: Lungs are clear to auscultation, respirations are non-labored, breath sounds are equal, Symmetrical chest wall expansion. Gastrointestinal: Soft, Nontender, Non distended Musculoskeletal: Normal ROM, no deformity. Neurological: Alert and oriented, No focal neurological deficit observed. Psychiatric: Cooperative, appropriate mood & affect. Course Vital Signs: Vital signs: Vital Signs Temperature 97.5 F L 06/16/25 12:28 Pulse Rate 74 06/16/25 13:34 Respiratory Rate 16 06/16/25 12:28 Blood Pressure 115/85 06/16/25 13:34 Pulse Oximetry 91 06/16/25 13:34 Oxygen Delivery Me thod Room Air 06/16/25 12:28 MDM - Syncope Medical Decision Making Medical decision making: Differential diagnosis including but not limited to and based on the above HPI, review of systems and physical exam in this patient with syncope: Vasovagal, orthostatics hypotension, cardiac dysrhythmia, myocardial infarction, infection and hypotension, Orders placed to evaluate differential diagnosis based on the above differential, HPI and physical exam Chest x-ray: Left-sided Port-A-Cath. No infiltrate. No acute process. This was reviewed and interpreted by myself the emergency room physician. I also reviewed the radiology report. Lab Review: Laboratory results were reviewed and interpreted by myself the emergency room physician. No leukocytosis. No anemia. No renal failure. Flu COVID and RSV are negative. Urine is negative for infection. Liver enzymes are negative. CT head: No acute intracranial process. No intracranial hemorrhage, no evidence of infarct. No evidence of acute fracture. This was reviewed and interpreted by myself the emergency room physician. I also reviewed the radiology report. I reviewed the patient's medical record. Reexamination: Vitals have remained stable. No oxygen requirements. No hypotension. No altered mental status. Assessment and plan: Syncope Migraine headache ?IV fluids, IV Norflex, Reglan, Benadryl, Zofran, Toradol. - Discharged home - Discussed plan with patient. Answered any questions. - Evaluation and treatment of this problem were appropriate in the emergency setting. Lab Data 06/16/25 13:13 06/16/25 13:13 Radiology Impressions Chest X-Ray 06/16/25 12:32 IMPRESSION: Port-A-Cath in place. No pneumothorax identified. Head CT 06/16/25 12:32 IMPRESSION: No acute intracranial abnormality. Laboratory Results WBC 7.49 10^3/uL (3.29-11.43) 06/16/25 13:13 RBC 4.98 10^6/uL (3.85-5.65) 06/16/25 13:13 Hgb 14.00 g/dL (11.27-16.99) 06/16/25 13:13 Hct 41.6 % (36-47) 06/16/25 13:13 MCV 83.5 fl (85-98) L 06/16/25 13:13 MCH 28.1 pg (27-33) 06/16/25 13:13 MCHC 33.7 g/dL (30-55) 06/16/25 13:13 RDW 14.0 % (12.1-15.1) 06/16/25 13:13 Plt Count 282 10^3/cmm (157-399) 06/16/25 13:13 MPV 9.6 fL (7.4-10.4) 06/16/25 13:13 Neut % (Auto) 61.1 % 06/16/25 13:13 Lymph % (Auto) 24.0 % 06/16/25 13:13 [place] % (Auto) 12.0 % 06/16/25 13:13 Eos % (Auto) 0.9 % 06/16/25 13:13 Baso % (Auto) 1.5 % 06/16/25 13:13 Neut # (Auto) 4.57 10^3/uL (1.8-7.7) 06/16/25 13:13 Lymph # (Auto) 1.8 10^3/uL (0.8-4.8) 06/16/25 13:13 [place] # (Auto) 0.9 10^3/uL (0.2-0.9) 06/16/25 13:13 Eos # (Auto) 0.1 10^3/uL (0.0-0.8) 06/16/25 13:13 Baso # (Auto) 0.1 10^3/uL (0.0-0.1) 06/16/25 13:13 Nucleated RBC % (auto) 0 % 06/16/25 13:13 Nucleated RBCs # 0.0 /100WBC 06/16/25 13:13 Sodium 137 mmol/L (136-145) 06/16/25 13:13 Potassium 3.9 mmol/L (3.5-5.1) 06/16/25 13:13 Chloride 101 mmol/L (98-107) 06/16/25 13:13 Carbon Dioxide 23 mmol/L (22-29) 06/16/25 13:13 Anion Gap 16.9 (5-19) 06/16/25 13:13 BUN 13 mg/dL (6-20) 06/16/25 13:13 Creatinine 0.9 mg/dL (0.5-0.9) 06/16/25 13:13 GFR Calculation 68.3 mL/min (90-130) L 06/16/25 13:13 Glucose 100 mg/dL (65-115) 06/16/25 13:13 Calculated Osmolality 284 mOsm/kg (285-295) L 06/16/25 13:13 Lactic Acid 0.8 mmol/L (0.5-2.2) 06/16/25 13:13 Calcium 8.8 mg/dL (8.5-10.5) 06/16/25 13:13 Total Bilirubin 0.3 mg/dL (0.15-1.2) 06/16/25 13:13 AST 11 U/L (0-32) 06/16/25 13:13 ALT 12 U/L (0-33) 06/16/25 13:13 Alkaline Phosphatase 83 U/L (35-105) 06/16/25 13:13 C-Reactive Protein 3.0 mg/L (0.0-4.9) 06/16/25 13:13 Total Protein 7.7 g/dL (6.6-8.7) 06/16/25 13:13 Albumin 4.7 g/dL (3.5-5.2) 06/16/25 13:13 Globulin 3.0 g/dL (1.3-4.6) 06/16/25 13:13 Urine Color Yellow (Yellow) 06/16/25 13:22 Urine Appearance Clear (CLEAR) 06/16/25 13:22 Urine pH 5.5 (5-7) 06/16/25 13:22 Ur Specific [place] 1.017 (1.005-1.030) 06/16/25 13:22 Urine Protein Negative (Negative) 06/16/25 13:22 Urine Glucose (UA) 3+ (Normal) H 06/16/25 13:22 Urine Ketones Negative (Negative) 06/16/25 13:22 Urine Blood Negative (Negative) 06/16/25 13:22 Urine Nitrate Negative (Negative) 06/16/25 13:22 Urine Bilirubin Negative (Negative) 06/16/25 13:22 Urine Urobilinogen 0.2 mg/dL (Negative) 06/16/25 13:22 Ur Leukocyte Esterase Negative (Negative) 06/16/25 13:22 Urine RBC 0-4 /hpf (0-2) H 06/16/25 13:22 Urine WBC 0-4 /hpf (0-5) H 06/16/25 13:22 Ur Squamous Epith Cells 5-10 /hpf (0-5) H 06/16/25 13:22 Amorphous Sediment Not Reportable 06/16/25 13:22 Urine Bacteria 1+ /hpf (NONE) H 06/16/25 13:22 Influenza A (PCR) Negative (Negative) 06/16/25 13:27 Influenza Type B (PCR) Negative (Negative) 06/16/25 13:27 RSV (PCR) Negative (Negative) 06/16/25 13:27 SARS-CoV-2 (PCR) Negative (Negative) 06/16/25 13:27 All radiology interpretation(s) finalized by discharge Discharge Plan Discharge Patient Disposition: Home Clinical Impression: Syncope, Migraine headache Condition: Stable Prescriptions: No Action trazodone 100 mg tablet 200 mg PO BEDTIME epinephrine [EpiPen 2-Edward] 0.3 mg/0.3 mL auto-injector 0.3 mg IM Q15M PRN (Reason: anaphylaxis) Qty: 2 0RF Rx Instructions: for 2 doses ondansetron HCl 8 mg tablet 8 mg PO Q8H Qty: 30 1RF azathioprine 50 mg tablet 100 mg PO BID Qty: 360 1RF hydroxychloroquine 200 mg tablet 200 mg PO BID Qty: 180 1RF bumetanide 2 mg tablet 2 mg PO BID Qty: 180 1RF Rx Instructions: Take 1 tablet by mouth twice daily, may take an additional tab for weight gain more the 3 pounds in 1 day or 5 pounds in a week topiramate 50 mg tablet 50 mg PO BID PRN (Reason: nerve pain) Qty: 60 0RF Mounjaro 15 mg/0.5 mL pen injector 15 mg SUBCUT Q7D 90 Days Qty: 6.5 1RF Rx Instructions: dapagliflozin propanediol [Farxiga] 10 mg tablet 10 mg PO DAILY Qty: 90 1RF ketoconazole 200 mg tablet 400 mg PO DAILY 14 Days Qty: 28 0RF albuterol sulfate 2.5 mg /3 mL (0.083 %) solution for nebulization 2.5 mg inhalation Q4H PRN (Reason: Shortness Of Breath) Qty: 90 3RF insulin aspart U-100 [Novolog FlexPen U-100 Insulin] 100 unit/mL (3 mL) insulin pen 5 unit SUBCUT TID Qty: 15 1RF Rx Instructions: take before meals Entresto 49-51 mg tablet 1 tab PO BID Qty: 180 1RF montelukast [Singulair] 10 mg tablet 10 mg PO DAILY Qty: 90 1RF Trelegy Ellipta 100-62.5-25 mcg blister with device 1 inh inhalation DAILY Qty: 60 3RF oxycodone-acetaminophen 10-325 mg tablet 1 tab PO Q6H MDD 6 PRN (Reason: pain) 30 Days Qty: 120 0RF atorvastatin 20 mg tablet 20 mg PO DAILY Qty: 90 0RF tizanidine 4 mg tablet 4 mg PO BID PRN (Reason: muscle spasticity) Qty: 60 0RF (DME) Dexcom G7 Sensor Device See Rx Instructions .ROUTE .COMPLEX Qty: 9 3RF Dose Instruction: CHANGE EVERY 10 DAYS DIRECTED Rx Instructions: CHANGE EVERY 10 DAYS DIRECTED pantoprazole 40 mg Tablet,Delayed Release (Dr/Ec) 40 mg PO BID PRN (Reason: Acid Reflux) ziprasidone HCl 80 mg Capsule 80 mg PO BID buspirone 30 mg tablet 30 mg PO BID acetaminophen [Tylenol] 325 mg Tablet 650 mg PO QID PRN (Reason: Fever Or Pain) hydroxyzine pamoate 50 mg capsule 50 mg PO QID PRN (Reason: anxiety ) clonazepam 0.5 mg tablet 0.5 mg PO BEDTIME oxcarbazepine 150 mg tablet 150 mg PO BID Rx Instructions: along with 300mg br=[id number] total oxcarbazepine 300 mg tablet 300 mg PO BID Rx Instructions: along with 150mg [id number] total vilazodone 20 mg tablet 30 mg PO QAM gabapentin 600 mg tablet 600 mg PO TID isosorbide mononitrate 30 mg tablet extended release 24 hr 30 mg PO DAILY levothyroxine 25 mcg tablet 25 mcg PO QAM Rx Instructions: along with 200mcg [id number] total levothyroxine 200 mcg tablet 200 mcg PO QAM Rx Instructions: along with 25mcg [id number] total insulin glargine [Lantus Solostar U-100 Insulin] 100 unit/mL (3 mL) insulin pen 60 unit SUBCUT QPM PRN (Reason: blood sugar) Discharge Orders: Discharge ED (Routine); Ordered 06/16/25 Ordered By: Anamaria Ward Referrals: Elan Kuhn MD [Primary Care Provider, Family Practice] Discharge Diet: Usual diet Discharge Activity: Increase activity as tolerated Patient Instructions: Syncope (ED), Opioid Safety, Pain Management, Patient Portal & Vania Instructions Activity Restrictions/Additional Instructions: Thank you for choosing [facility] for your healthcare needs today. You have been screened and evaluated and felt safe for discharge. Health conditions do change or evolve sometimes and as such it is important that you follow up with your Primary Doctor to be re checked, 3-5 days is a general good time frame for follow up. You are always welcome to return to the ED for re assessment if your symptoms are worsening or you have new concerns Print Language: Welsh Coding Level of Care Code ED Hops Farmworker for Chao Monsalve
[2025-06-16 13:19] LABS: Hematocrit 41.6 % (36-47); Hemoglobin 14.00 g/dL (11.27-16.99); Mean Corpuscular HGB Conc 33.7 g/dL (30-55); Mean Corpuscular Hemoglobin 28.1 pg (27-33); Mean Corpuscular Volume 83.5 fl (85-98); Nucleated Red Blood Cells % 0 %; Platelet Count 282 10^3/cmm (157-399); Red Blood Count 4.98 10^6/uL (3.85-5.65); White Blood Count 7.49 10^3/uL (3.29-11.43)
[2025-06-16] MEDS: ondansetron 2 mg/ML SDV 2 mL 8 MG IVP (13:30)
[2025-06-16 13:32] LABS: Glucose Urine UA 3+ (Normal); Nitrate Urine Negative (Negative); Specific Gravity, Urine 1.017 (1.005-1.030)
[2025-06-16 13:34] VITALS: BP 115/85; PULSE 74; O2SAT 91
[2025-06-16 13:40] LABS: Alanine Aminotransferase 12 U/L (0-33); Albumin Level 4.7 g/dL (3.5-5.2); Alkaline Phosphatase 83 U/L (35-105); Anion Gap 16.9 (5-19); Aspartate Amino Transferase 11 U/L (0-32); Blood Urea Nitrogen 13 mg/dL (6-20); Calcium 8.8 mg/dL (8.5-10.5); Carbon Dioxide 23 mmol/L (22-29); Chloride 101 mmol/L (98-107); Creatinine Clr Calc Pharmacy 107.9240; Globulin 3.0 g/dL (1.3-4.6); Glucose 100 mg/dL (65-115); Lactic Sepsis W/Reflex 0.8 mmol/L (0.5-2.2); Osmolality Calculated 284 mOsm/kg (285-295); Potassium 3.9 mmol/L (3.5-5.1); Sodium 137 mmol/L (136-145); Total Protein 7.7 g/dL (6.6-8.7)
[2025-06-16 14:00] VITALS: BP 115/72; PULSE 79; O2SAT 92
[2025-06-16 14:07] LABS: Respiratory Syncytial Virus Ce NEGATIVE (Negative); SARS-CoV-2 PCR NEGATIVE (Negative)
[2025-06-16 14:30] VITALS: BP 121/85; PULSE 75; O2SAT 93
[2025-06-16] MEDS: orphenadrine 30 mg/mL Inj 2 mL 60 MG IVP (14:47)
[2025-06-16] MEDS: metoclopramide 5 mg/mL SDV 2 mL 10 MG IVP (14:51)
[2025-06-16] MEDS: diphenhydrAMINE 50 mg/mL SDV 1mL IVP (14:51)
[2025-06-16 15:34] VITALS: BP 122/85; PULSE 75; O2SAT 93
== END 2025-06-16 15:45 | disposition home or self-care (01) ==
PROVIDERS: Emergency Provider Emergency Medicine; PCP Family Medicine
DX: R55 Syncope and collapse (principal); G43.909 Migraine, unspecified, not intractable, without status migrainosus; Z11.52 Encounter for screening for COVID-19; Z79.4 Long term (current) use of insulin; Z87.891 Personal history of nicotine dependence; E78.2 Mixed hyperlipidemia; I11.0 Hypertensive heart disease with heart failure; I50.30 Unspecified diastolic (congestive) heart failure; E11.9 Type 2 diabetes mellitus without complications; J44.9 Chronic obstructive pulmonary disease, unspecified
CPT/HCPCS: 36415; 70450; 71045; 80053; 81001; 83605; 85025; 86140; 87040; 87637; 96361; 96374; 96375; 99285; J1200; J1885; J2360; J2405; J2765; J7030

== ENCOUNTER → 2025-06-26 09:38 | Outpatient (BNVA) | payer OTHER, MEDICAID, SELFPAY ==
[2025-06-21 10:49] VITALS: BP 143/94; BMI 45.6
== END ==
PROVIDERS: PCP Family Medicine; Visit Provider Nurse Practitioner Family
DX: M54.42 Lumbago with sciatica, left side (principal); M54.41 Lumbago with sciatica, right side; G89.29 Other chronic pain; F12.90 Cannabis use, unspecified, uncomplicated
CPT/HCPCS: 99214

== ENCOUNTER → 2025-07-15 11:24 | Outpatient (BNVA) | payer OTHER, MEDICAID, SELFPAY ==
[2025-06-21 10:49] VITALS: BP 143/94; BMI 45.6
== END ==
PROVIDERS: PCP Family Medicine; Visit Provider Specialist
DX: G43.711 Chronic migraine without aura, intractable, with status migrainosus (principal)
CPT/HCPCS: 99215

== ENCOUNTER 2025-07-23 12:30 | Oncology outpatient (recurring) (ONCR) | payer OTHER, MEDICAID, SELFPAY ==
[2025-06-21 10:49] VITALS: BP 143/94; BMI 45.6
[2025-07-02] MEDS: alteplase 1 mg/mL SDV 2 mL 2 MG INTRACATH (11:49)
[2025-07-23 11:07] VITALS: BP 126/74; PULSE 85; RESP 17; TEMP 36.6; O2SAT 98
[2025-07-23] MEDS: ondansetron 2 mg/ML SDV 2 mL 4 MG IVP ×2 (11:12→12:13)
[2025-07-23] MEDS: diphenhydrAMINE 50 mg/mL SDV 1mL 25 MG IVP (11:15)
[2025-07-23 12:55] VITALS: BP 119/83; PULSE 72; RESP 17; TEMP 36.9; O2SAT 93
== END 2025-07-28 23:59 | disposition home or self-care (01) ==
PROVIDERS: PCP Family Medicine; Visit Provider Radiology Radiation Oncology
DX: G43.711 Chronic migraine without aura, intractable, with status migrainosus; Z79.899 Other long term (current) drug therapy; Z53.9 Procedure and treatment not carried out, unspecified reason
CPT/HCPCS: 36593; 96374; 96375; 96376; 96523; 99214; J1110; J1200; J2405; J2997

== ENCOUNTER 2025-07-29 20:17 | Outpatient (CLI) | payer OTHER, MEDICAID, SELFPAY ==
[2025-06-21 10:49] VITALS: BP 143/94; BMI 45.6
== END 2025-07-29 20:18 | disposition home or self-care (01) ==
LOC: SLEEP 20:19
PROVIDERS: PCP Family Medicine; Referring Provider Student in an Organized Health Care Education/Training Program; Visit Provider Internal Medicine Pulmonary Disease
DX: G47.33 Obstructive sleep apnea (adult) (pediatric) (principal)
CPT/HCPCS: 95811

== ENCOUNTER → 2025-08-06 07:43 | Outpatient (BNVA) | payer OTHER, MEDICAID, SELFPAY ==
[2025-06-21 10:49] VITALS: BP 143/94; BMI 45.6
== END ==
PROVIDERS: PCP Family Medicine; Visit Provider Orthopaedic Surgery
DX: M54.9 Dorsalgia, unspecified (principal); G89.18 Other acute postprocedural pain
CPT/HCPCS: 72100; 99213

== ENCOUNTER 2025-08-15 09:00 | Oncology outpatient (recurring) (ONCR) | payer OTHER, MEDICAID, SELFPAY ==
[2025-06-21 10:49] VITALS: BP 143/94; BMI 45.6
--- NOTE | 2025-08-07 06:15 | USCV_ITS ---
Lori Padron Age: 45 Gender: F : 1980 Exam Date: 08/07/2025 06:19 Ordering Phys: Sai Salvador MD ([email or web address]) Technologist: [email or web address] Exam Location: [facility] [place] Indication: cp sob BP: 110 / 76 HR: 90 Rhythm: Sinus Technical Quality: Adequate MEASUREMENTS (Male / Female) Normal Values 2D ECHO LV Diastolic Diameter PLAX 4.4 cm 4.2 - 5.9 / 3.9 - 5.3 cm IVS Systolic Thickness 1.9 cm LVPW Systolic Thickness 1.9 cm LVOT Diameter 2.0 cm LV Ejection Fraction 2D Teich 64.6 % LV Ejection Fraction MOD 4C 65.5 % LV Ejection Fraction MOD 2C 69.1 % LV Ejection Fraction 2C AL 69.2 % LA Diameter 4.1 cm LA Sys Volume AL 61.8 cm cubed LA Sys Volume Index AL 25.5 cm cubed/m squared Aorta at Sinotubular Diameter 2.7 cm IVC Diameter 1.9 cm M-MODE LA Ao Ratio MM 1.5 AV Cusp Separation MM 2.2 cm DOPPLER AV Peak Velocity 146.0 cm/s LVOT Peak Velocity 109.0 cm/s AV Area Cont Eq vti 2.5 cm squared AV Area Cont Eq pk 2.3 cm squared MV Peak Velocity 107.0 cm/s MV Area PHT 4.8 cm squared Mitral E to A Ratio 1.1 TV Peak Velocity 195.0 cm/s TR Peak Velocity 239.0 cm/s TR Peak Gradient 22.8 mmHg TV Peak E Velocity 101.0 cm/s PV Peak Velocity 111.0 cm/s FINDINGS Left Ventricle Normal left ventricular size, systolic function and wall thickness with no regional wall motion abnormality. Left ventricular ejection fraction is 65%. Normal left ventricular diastolic function. Right Ventricle Normal right ventricular size and systolic function. Right Atrium Normal right atrial size. Left Atrium Normal left atrial size. IA Septum Normal appearance of the interatrial septum. Mitral Valve Normal mitral valve structure. No mitral valve stenosis or regurgitation. Aortic Valve Normal aortic valve structure. No aortic valve stenosis or regurgitation. Tricuspid Valve Normal tricuspid valve structure. No tricuspid valve stenosis or regurgitation. Normal pulmonary pressure. Pulmonic Valve Normal pulmonic valve structure. No pulmonic valve stenosis or regurgitation. Pericardium No pericardial effusion. Aorta Normal diameter of the aortic root and ascending thoracic aorta. IVC Normal IVC diameter. CONCLUSIONS Normal left ventricular size, systolic function and wall thickness with ejection fraction of 65%. Normal right ventricular size and systolic function. No significant valvular abnormalities. Sai Salvador MD, FACC (Electronically Signed) Final Date: 07 August 2025 20:03 S
[2025-08-15] VITALS (7 sets, daily range): BP systolic 90–109; BP diastolic 54–73; PULSE 72–85; RESP 16–17; TEMP 36.3–37; O2SAT 94–97
[2025-08-15 09:36] LABS: Hematocrit 32.3 % (36-47); Hemoglobin 11.10 g/dL (11.27-16.99); Mean Corpuscular HGB Conc 34.4 g/dL (30-55); Mean Corpuscular Hemoglobin 28.5 pg (27-33); Mean Corpuscular Volume 83.0 fl (85-98); Nucleated Red Blood Cells % 0 %; Platelet Count 278 10^3/cmm (157-399); Red Blood Count 3.89 10^6/uL (3.85-5.65); White Blood Count 6.85 10^3/uL (3.29-11.43)
--- NOTE | 2025-08-15 09:44 | PC.PHAR ---
rituxan clarification: phoned Dr. Portillo regarding patients treatment. Last treatment was given out of cycle (too early). questioned if okay to treat today. Dr. Portillo states it is okay to treat today as long as it's been 6 months since last treatment. also, I verified with Ivonne that this infusion is covered. She stated we are okay to treat as long as we use brand name Rituxan as patient has medicaid.
[2025-08-15] MEDS: methylPREDNISolone sod succ 125 mg/2 mL INJ IVP (09:52)
[2025-08-15 09:55] LABS: Alanine Aminotransferase 14 U/L (0-33); Albumin Level 4.1 g/dL (3.5-5.2); Alkaline Phosphatase 91 U/L (35-105); Aspartate Amino Transferase 13 U/L (0-32); Globulin 2.7 g/dL (1.3-4.6); Total Protein 6.8 g/dL (6.6-8.7)
[2025-08-15] MEDS: diphenhydrAMINE 50 mg/mL SDV 1mL 25 MG IVP (09:56)
--- NOTE | 2025-08-16 13:15 | CTR_ITS ---
PROCEDURE INFORMATION: Exam: CT Lumbar Spine Without Contrast Exam date and time: 08/16/2025 1:12 PM Age: 45 years old Clinical indication: Low back pain; Prior surgery; Surgery date: 1-6 months; Surgery type: Lumbar; Additional info: Post op pain TECHNIQUE: Imaging protocol: Computed tomography of the lumbar spine without contrast. Radiation optimization: All CT scans at this facility use at least one of these dose optimization techniques: automated exposure control; mA and/or kV adjustment per patient size (includes targeted exams where dose is matched to clinical indication); or iterative reconstruction. COMPARISON: MR lumbar spine wo/w con [id number] 04/10/2025 3:50 PM RADIATION DOSE METRICS: Total DLP (mGy-cm): 1236.93 FINDINGS: Bones/joints: There is no acute lumbosacral spine fracture or traumatic subluxation. There are posterior transforaminal lumbar interbody fusion and decompression hardware at L4-L5. The hardware are intact including bilateral transpedicular screws and vertical stabilizing rods. There is no evidence for complication. There is an interbody spacer seen. There is no evidence for osseous fusion of L4 or L5 at this time. Since the prior MRI of 04/10/2025, there has been no significant interval change. Post laminectomy decompressive changes are seen. Soft tissues: Unremarkable.
== END 2025-08-15 23:59 | disposition home or self-care (01) ==
PROVIDERS: PCP Family Medicine; Visit Provider Internal Medicine Rheumatology
DX: Z53.9 Procedure and treatment not carried out, unspecified reason; M32.9 Systemic lupus erythematosus, unspecified; Z79.899 Other long term (current) drug therapy
CPT/HCPCS: 80076; 82565; 82784; 85025; 85651; 86140; 93306; 96375; 96413; 96415; 99214; J1200; J2919; J7040; J9312; J9999

== ENCOUNTER 2025-08-21 11:24 | Outpatient (CLI) | payer OTHER, MEDICAID, SELFPAY ==
[2025-06-21 10:49] VITALS: BP 143/94; BMI 45.6
[2025-08-21 12:08] LABS: Alanine Aminotransferase 18 U/L (0-33); Albumin Level 4.7 g/dL (3.5-5.2); Alkaline Phosphatase 107 U/L (35-105); Anion Gap 15.9 (5-19); Aspartate Amino Transferase 17 U/L (0-32); Blood Urea Nitrogen 8 mg/dL (6-20); Calcium 9.3 mg/dL (8.5-10.5); Carbon Dioxide 29 mmol/L (22-29); Chloride 95 mmol/L (98-107); Cholesterol 109 mg/dL (0-200); Globulin 3.0 g/dL (1.3-4.6); Glucose 91 mg/dL (65-115); HDL Cholesterol 52 mg/dL (60-100); Osmolality Calculated 282 mOsm/kg (285-295); Sodium 137 mmol/L (136-145); Total Protein 7.7 g/dL (6.6-8.7); Triglycerides 113 mg/dL (0-150)
[2025-08-21 12:57] LABS: Potassium 2.9 mmol/L (3.5-5.1)
== END 2025-08-21 11:25 | disposition home or self-care (01) ==
LOC: LAB 11:26
PROVIDERS: PCP Family Medicine; Visit Provider Family Medicine
DX: I50.9 Heart failure, unspecified (principal)
CPT/HCPCS: 36415; 80053; 80061; 80183

== ENCOUNTER 2025-08-21 16:41 | Emergency (ER) | payer OTHER, MEDICAID, SELFPAY ==
[2025-06-21 10:49] VITALS: BP 143/94; BMI 45.6
[2025-08-21 16:47] VITALS: BP 107/68; PULSE 83; TEMP 36.7; O2SAT 97
--- OUTSIDE RECORDS SUMMARY | 2025-08-21 16:48 | XMS_ITS | Clinical Summary ---
Author Organization [facility] Address [address] [place] [address] Attn: Epic Prelude ADT IRIS BLACKMON [id number] Care Team Providers Care Striker Off Name Role Phone Unavailable Primary Care Provider [...] 5 mg tablet daily. 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 Inhaled Oxygen Concentration - - Weight 139.1 kg (306 lb 9.6 oz) 07/14/2023 5:12 PM ENVELOPE PRESS OPERATOR Height 165.1 cm (5' 5 ) 07/14/2023 5:12 PM 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 PRESS 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 Body Mass Index 51.02 07/14/2023 5:12 PM 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
--- NOTE | 2025-08-21 16:57 | W.ED.RECABL ---
HPI - Recheck/Abnormal Lab/Rx General: Chief Complaint: Recheck/Abnormal Lab/Rx Stated Complaint: Dr Kuhn Critical Labs Time Seen by Provider: 08/21/25 16:47 History of Present Illness: Patient is 45-year-old female with SLE, CHFpEF 60%, KI, alpha gal, that had a routine visit today with Dr. Smith for carbamazepine level. Context: Patient went in for routine follow-up, had routine labs, and her potassium was noted to be 2.9. She has no complaints. She is on Mounjaro. She is on Bumex 1 mg p.o. daily. No potassium supplement. She is not eating foods rich in potassium. Denies melena, potatoes, breads, oranges, bananas, and does not like beans. She does like tomatoes however she has not had any lately. Related Data Home Medications ?Medication ?Instructions ?Recorded ?Confirmed buspirone 30 mg tablet 30 mg PO BID 08/26/23 08/14/25 acetaminophen 325 mg tablet 650 mg PO QID PRN Fever Or Pain 11/27/24 08/14/25 (Tylenol) hydroxyzine pamoate 50 mg capsule 50 mg PO QID PRN anxiety 11/27/24 08/14/25 levothyroxine 25 mcg tablet 25 mcg PO QAM 05/27/25 08/14/25 vilazodone 20 mg tablet 30 mg PO QAM 05/27/25 08/14/25 lumateperone 21 mg capsule 21 mg PO DAILY 07/15/25 08/14/25 ziprasidone HCl 40 mg capsule 40 mg PO BID 07/15/25 08/14/25 Previous Rx's ?Medication ?Instructions ?Recorded albuterol sulfate 2.5 mg/3 mL 2.5 mg (3 mL) inhalation Q4H PRN 06/25/24 (0.083 %) solution for nebulization Shortness Of Breath #90 mL insulin aspart U-100 100 unit/mL 5 unit (0.05 mL) SUBCUT TID #15 mL 08/03/24 (3 mL) subcutaneous pen (Novolog FlexPen U-100 Insulin aspart) fluticasone fur. 100 mcg-umeclid 1 inh inhalation DAILY #60 ea 04/12/25 62.5 mcg-vilant 25 mcg inhalat.powder (Trelegy Ellipta) montelukast 10 mg tablet 10 mg PO DAILY #90 tabs 04/12/25 (Singulair) bumetanide 2 mg tablet 2 mg PO BID #180 tabs 05/08/25 azathioprine 50 mg tablet 100 mg (2 x 50 mg) PO BID #360 tabs 06/03/25 hydroxychloroquine 200 mg tablet 200 mg PO BID #180 tabs 06/03/25 blood-glucose sensor (Dexcom G7 #9 ea 06/14/25 Sensor device) dapagliflozin propanediol 10 mg See Rx Instructions .Route 06/18/25 tablet (Farxiga) .COMPLEX #90 tabs gabapentin 600 mg tablet See Rx Instructions .Route 06/18/25 .COMPLEX #180 tabs insulin glargine 100 unit/mL (3 See Rx Instructions .Route 06/18/25 mL) subcutaneous pen (Lantus .COMPLEX #60 mL Solostar U-100 Insulin) levothyroxine 200 mcg tablet 200 mcg PO QAM #90 tabs 06/18/25 tirzepatide 15 mg/0.5 mL See Rx Instructions .Route 06/18/25 subcutaneous pen injector .COMPLEX #6.5 mL (Mounjaro) ondansetron HCl 8 mg tablet 8 mg PO Q8H nausea/vomiting #30 06/24/25 tabs Marijuana #1 ea 06/26/25 prednisone 10 mg tablet See Rx Instructions PO .COMPLEX 07/09/25 PRN joint pain flare #30 tabs propranolol 20 mg tablet 20 mg PO BID 90 days #180 tabs 07/15/25 sumatriptan succinate 100 mg tablet See Rx Instructions PO .COMPLEX 08/02/25 #10 tabs galcanezumab-gnlm 120 mg/mL 120 mg SUBCUT Q30D #1 mL 08/05/25 subcutaneous pen injector (Emgality Pen) galcanezumab-gnlm 120 mg/mL 240 mg (2 mL) SUBCUT ONCE #2 mL 08/05/25 subcutaneous pen injector (Emgality Pen) autoPAP 7-11 cm mmHg setting #1 ea 08/07/25 machine, with mask, tubing and supplies trazodone 100 mg tablet 400 mg (4 x 100 mg) PO DAILY #120 08/07/25 tabs pantoprazole 40 mg tablet,delayed 40 mg PO BID PRN Acid Reflux #60 08/12/25 release tabs epinephrine 0.3 mg/0.3 mL 0.3 mg (0.3 mL) IM Q15M PRN 08/14/25 injection, auto-injector (EpiPen anaphylaxis #2 ea 2-Edward) lidocaine 5 % topical patch 2 patch topical DAILY #60 ea 08/14/25 valacyclovir 1 gram tablet 1,000 mg PO TID #21 tabs 08/14/25 (Valtrex) atorvastatin 20 mg tablet 20 mg PO DAILY #90 tabs 08/19/25 isosorbide mononitrate 30 mg 30 mg PO DAILY #90 tabs 08/19/25 tablet,extended release 24 hr oxycodone-acetaminophen 10 mg-325 1 tab PO Q6H PRN pain 30 days #120 08/19/25 mg tablet (Percocet) tabs sacubitril 49 mg-valsartan 51 mg 1 tab PO BID #180 tabs 08/19/25 tablet (Entresto) oxcarbazepine 150 mg tablet 150 mg PO BID #14 tabs 08/21/25 oxcarbazepine 300 mg tablet 300 mg PO BID #14 tabs 08/21/25 potassium chloride 10 mEq 10 meq PO DAILY #30 tabs 08/21/25 tablet,extended release (Klor-Con) Allergies Allergy/AdvReac Type Severity Reaction Status Date / Time anifrolumab-fnia (From Allergy Severe hives Verified 08/21/25 16:53 Saphnelo) Alpha-Gal Allergy Intermediate ALGY-Rash Verified 08/21/25 16:53 ([id number]-2,3-Gala belimumab (From Benlysta) Allergy Intermediate rash and Verified 08/21/25 16:53 hives amoxicillin Allergy ALGY-Rash Verified 08/21/25 16:53 bee venom protein (honey bee) Allergy ALGY-Anaphy Verified 08/21/25 16:53 laxis cinnamon Allergy anaphylacti Verified 08/21/25 16:53 c desvenlafaxine (From Pristiq) Allergy Unknown Verified 08/21/25 16:53 fluoxetine (From Prozac) Allergy Unknown Verified 08/21/25 16:53 Latex, Natural Rubber Allergy ALGY-Rash Verified 08/21/25 16:53 oxytocin (From Pitocin) Allergy ADR-Itching Verified 08/21/25 16:53 Penicillins Allergy ALGY-Hives Verified 08/21/25 16:53 Sulfa (Sulfonamide Allergy ALGY-Rash Verified 08/21/25 16:53 Antibiotics) leflunomide AdvReac Intermediate gastric Verified 08/21/25 16:53 Review of Systems General: Reports: 10 or more systems reviewed and unremarkable except in HPI and below Const: Denies: fever(s) or chills Card: Denies: chest pain or orthopnea Resp: Denies: dyspnea, productive cough or wheezing GI: Denies: abdominal pain, nausea or vomiting Musc: Reports: joint pain, joint swelling, joint stiffness and limited range of motion Skin/Breast: Denies: rash, pruritus or dry skin Neuro: Denies: numbness in extremities or weakness in extremities Psych: Denies: anxiety Oneil/Lymph: Denies: easy bruising or easy bleeding PFSH ED PFSH: Medical History (Updated 08/21/25 @ 17:46 by ALEM Sapp) Generalized anxiety disorder Marijuana use Psychiatric care Abscess of left thigh Adult BMI 50.0-59.9 kg/sq m Heart failure with preserved ejection fraction History of echocardiogram 03/2024 EF 60%, Grade I/IV, normal PAP, no LVH, RAP 5mmHg OCD (obsessive compulsive disorder) Hernia of fascia Abnormal mammogram of right breast Hyponatremia chronic, may be related to some medications, which are being adjusted by primary prescribers Hypertension Syncope ADHD Fatty liver Fatigue B12 deficiency Lung injury associated with vaping Contact dermatitis SLE (systemic lupus erythematosus related syndrome) Hypothyroidism COPD (chronic obstructive pulmonary disease) Leukocytosis chronic Rosacea Positive double stranded DNA antibody test Labral tear of left hip joint KI (obstructive sleep apnea) Morbid obesity Bipolar 1 disorder PTSD (post-traumatic stress disorder) Chronic urticaria Insomnia Mild intermittent asthma Allergic rhinitis GERD (gastroesophageal reflux disease) Herpes zoster without complication 4th occurrence Hyperlipemia, mixed Helicobacter pylori gastritis Mandibular fracture Diabetes mellitus Type 2 Depression Surgical History History of left hip replacement History of cardiac catheterization 04/12/2024 Dr oHuse: No disease noted in the Left Main, Left Anterior Descending, Right, or Circumflex coronary arteries. History of ankle surgery (02/08/24) By Dr Murphy: Left modified Brostr?m with internal brace, repair left peroneus brevis tendon split tear and peroneus longus tenosynovectomy, topaz achilles tendon with PRP injection Status post lumbar spinal fusion (05/23/24) Dr Han, L4-5 History of mandibular surgery For mandibular fracture H/O esophagogastroduodenoscopy (09/02/21) H/O thyroidectomy done due to multinodular goiter S/P cholecystectomy S/P tonsillectomy and adenoidectomy S/P breast lumpectomy Right breast lumpectomy for benign disease Previous section Family History Father Hypertension Cancer testicular Cardiac abnormality Mother Congestive heart failure (CHF) COPD (chronic obstructive pulmonary disease) Diabetes Cancer ovarian and uterine Family/Other Cancer Maternal aunt- HR2 breast Other CAD (coronary artery disease) Family history of premature coronary artery disease Hyperlipidemia Lung disease Psychiatric illness Rheumatoid arthritis Stroke Denies family history of Lupus Clotting disorder Dementia Chronic kidney disease (CKD) Anesthesia complication Bleeding disorder Social History Smoking and tobacco/nicotine status: former use of tobacco/nicotine Quit status (tobacco/nicotine): has quit using Year quit tobacco: July Former quit date comment: Hx of 2 ppd X 25 years, started at age 16 yr. 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 Sexually active: Yes Do you think of yourself as: Straight/Heterosexual Current gender identity: Female Balbina/Caodaism: Zoroastrian Special balbina needs: No Agree to transfusion: Yes Physical Exam Const: COMMON NORMALS: no acute distress, patient oriented x3, healthy appearing and alert GENERAL APPEARANCE: cooperative and comfortable HENMT: COMMON NORMALS: external ears normal, EAC's normal and TM's normal bilaterally EXTERNAL EAR: Yes external ears normal EXTERNAL AUDITORY CANAL: EAC's normal TYMPANIC MEMBRANE: TM's normal bilaterally Eye: COMMON NORMALS: Equal, round and reactive pupils present and EOMs intact bilaterally PUPIL: Yes Equal, round and reactive pupils present Lymph: LYMPHATIC: no lymphadenopathy noted Resp: COMMON NORMALS: clear to auscultation bilaterally AUSCULTATION: clear to auscultation bilaterally Cardio: COMMON NORMALS: regular rate and regular rhythm RATE: regular rate RHYTHM: regular rhythm GI: COMMON NORMALS: Normal to inspection, nondistended, normoactive bowel sounds present : COMMON NORMALS: Yes no CVA tenderness BLADDER/KIDNEY EXAM: Yes no CVA tenderness Back/Pelvis: COMMON NORMALS: no CVA tenderness and thoracic and lumbar spine normal to inspection Extremity: COMMON NORMALS: normal to inspection, full ROM and capillary refill normal Neuro: COMMON NORMALS: patient oriented x3 SENSORIUM/ORIENTATION: Yes alert SPEECH: speech normal GAIT: Yes Normal gait present Psych: COMMON NORMALS: speech normal SPEECH: Yes normal speech Skin: RASHES: no rashes Course Vital Signs: Vital signs: Vital Signs Temperature 98.1 F 08/21/25 16:47 Pulse Rate 81 08/21/25 19:37 Blood Pressure 126/73 08/21/25 19:37 Pulse Oximetry 97 08/21/25 19:37 Oxygen Delivery Me thod Room Air 08/21/25 17:01 MDM - Recheck/Abnormal Lab/Rx Medical Decision Making Patient is a 45-year-old female that presents to the emergency room due to abnormal labs. She does not have any complaints. She is chronically on Bumex. Her diet has changed with the recent Mounjaro. I will go ahead and place patient on potassium after initial replacement. Patient also educated on potassium foods. Patient states understanding. Medical Records I reviewed the patient's medical records. Lab Data I reviewed the patient's lab results. 08/21/25 16:55 08/21/25 16:55 Laboratory Results WBC 9.12 10^3/uL (3.29-11.43) 08/21/25 16:55 RBC 4.60 10^6/uL (3.85-5.65) 08/21/25 16:55 Hgb 13.10 g/dL (11.27-16.99) 08/21/25 16:55 Hct 38.0 % (36-47) 08/21/25 16:55 MCV 82.6 fl (85-98) L 08/21/25 16:55 MCH 28.5 pg (27-33) 08/21/25 16:55 MCHC 34.5 g/dL (30-55) 08/21/25 16:55 RDW 15.1 % (12.1-15.1) 08/21/25 16:55 Plt Count 392 10^3/cmm (157-399) 08/21/25 16:55 MPV 9.8 fL (7.4-10.4) 08/21/25 16:55 Neut % (Auto) 67.5 % 08/21/25 16:55 Lymph % (Auto) 21.8 % 08/21/25 16:55 Telfair % (Auto) 8.0 % 08/21/25 16:55 Eos % (Auto) 1.2 % 08/21/25 16:55 Baso % (Auto) 1.1 % 08/21/25 16:55 Neut # (Auto) 6.15 10^3/uL (1.8-7.7) 08/21/25 16:55 Lymph # (Auto) 2.0 10^3/uL (0.8-4.8) 08/21/25 16:55 Telfair # (Auto) 0.7 10^3/uL (0.2-0.9) 08/21/25 16:55 Eos # (Auto) 0.1 10^3/uL (0.0-0.8) 08/21/25 16:55 Baso # (Auto) 0.1 10^3/uL (0.0-0.1) 08/21/25 16:55 Nucleated RBC % (auto) 0 % 08/21/25 16:55 Nucleated RBCs # 0.0 /100WBC 08/21/25 16:55 Sodium 135 mmol/L (136-145) L 08/21/25 16:55 Potassium 2.9 mmol/L (3.5-5.1) L 08/21/25 16:55 Chloride 95 mmol/L (98-107) L 08/21/25 16:55 Carbon Dioxide 24 mmol/L (22-29) 08/21/25 16:55 Anion Gap 18.9 (5-19) 08/21/25 16:55 BUN 9 mg/dL (6-20) 08/21/25 16:55 Creatinine 0.5 mg/dL (0.5-0.9) 08/21/25 16:55 GFR Calculation 134.7 mL/min (90-130) H 08/21/25 16:55 Glucose 126 mg/dL (65-115) H 08/21/25 16:55 Calculated Osmolality 280 mOsm/kg (285-295) L 08/21/25 16:55 Calcium 8.9 mg/dL (8.5-10.5) 08/21/25 16:55 Magnesium 1.9 mg/dL (1.7-2.3) 08/21/25 16:55 Total Bilirubin 0.2 mg/dL (0.15-1.2) 08/21/25 16:55 AST 14 U/L (0-32) 08/21/25 16:55 ALT 17 U/L (0-33) 08/21/25 16:55 Alkaline Phosphatase 104 U/L (35-105) 08/21/25 16:55 Total Protein 7.4 g/dL (6.6-8.7) 08/21/25 16:55 Albumin 4.3 g/dL (3.5-5.2) 08/21/25 16:55 Globulin 3.1 g/dL (1.3-4.6) 08/21/25 16:55 All radiology interpretation(s) finalized by discharge Discharge Plan Discharge Patient Disposition: Home Clinical Impression: Hypokalemia Condition: Stable Prescriptions: New potassium chloride [Klor-Con 10] 10 mEq tablet extended release 10 meq PO DAILY Qty: 30 0RF No Action azathioprine 50 mg tablet 100 mg PO BID Qty: 360 1RF hydroxychloroquine 200 mg tablet 200 mg PO BID Qty: 180 1RF bumetanide 2 mg tablet 2 mg PO BID Qty: 180 1RF Rx Instructions: Take 1 tablet by mouth twice daily, may take an additional tab for weight gain more the 3 pounds in 1 day or 5 pounds in a week ziprasidone HCl 40 mg capsule 40 mg PO BID Rx Instructions: give with food (meal/snack) lumateperone 21 mg capsule 21 mg PO DAILY propranolol 20 mg tablet 20 mg PO BID 90 Days Qty: 180 1RF valacyclovir [Valtrex] 1 gram tablet 1,000 mg PO TID Qty: 21 0RF lidocaine 5 % adhesive patch,medicated 2 patch topical DAILY Qty: 60 1RF Rx Instructions: leave on most painful area for up to 12 hrs epinephrine [EpiPen 2-Edward] 0.3 mg/0.3 mL auto-injector 0.3 mg IM Q15M PRN (Reason: anaphylaxis) Qty: 2 2RF Rx Instructions: for 2 doses (DME) Marijuana cartridge with inhaler See Rx Instructions .Route .MEDSUPPLY Qty: 1 0RF Rx Instructions: As directed trazodone 100 mg tablet 400 mg PO DAILY Qty: 120 2RF albuterol sulfate 2.5 mg /3 mL (0.083 %) solution for nebulization 2.5 mg inhalation Q4H PRN (Reason: Shortness Of Breath) Qty: 90 3RF insulin aspart U-100 [Novolog FlexPen U-100 Insulin] 100 unit/mL (3 mL) insulin pen 5 unit SUBCUT TID Qty: 15 1RF Rx Instructions: take before meals montelukast [Singulair] 10 mg tablet 10 mg PO DAILY Qty: 90 1RF Trelegy Ellipta 100-62.5-25 mcg blister with device 1 inh inhalation DAILY Qty: 60 3RF (DME) Dexcom G7 Sensor Device See Rx Instructions .ROUTE .COMPLEX Qty: 9 3RF Dose Instruction: CHANGE EVERY 10 DAYS DIRECTED Rx Instructions: CHANGE EVERY 10 DAYS DIRECTED dapagliflozin propanediol [Farxiga] 10 mg tablet See Rx Instructions .ROUTE .COMPLEX Qty: 90 1RF Dose Instruction: TAKE 1 TABLET BY MOUTH DAILY Rx Instructions: TAKE 1 TABLET BY MOUTH DAILY Mounjaro 15 mg/0.5 mL pen injector See Rx Instructions .ROUTE .COMPLEX Qty: 6.5 1RF Dose Instruction: inject 15mg SUBCUTANEOUSLY EVERY 7 DAYS Rx Instructions: inject 15mg SUBCUTANEOUSLY EVERY 7 DAYS levothyroxine 200 mcg tablet 200 mcg PO QAM Qty: 90 0RF Rx Instructions: along with 25mcg [id number] total insulin glargine [Lantus Solostar U-100 Insulin] 100 unit/mL (3 mL) insulin pen See Rx Instructions .ROUTE .COMPLEX Qty: 60 1RF Dose Instruction: INJECT 60 UNITS (0.6ML) SUBCUTANEOUSLY EVERY DAY Rx Instructions: INJECT 60 UNITS (0.6ML) SUBCUTANEOUSLY EVERY DAY gabapentin 600 mg tablet See Rx Instructions .ROUTE .COMPLEX Qty: 180 1RF Dose Instruction: TAKE 1 TABLET BY MOUTH THREE TIMES DAILY Rx Instructions: TAKE 1 TABLET BY MOUTH THREE TIMES DAILY ondansetron HCl 8 mg tablet 8 mg PO Q8H Qty: 30 1RF prednisone 10 mg tablet See Rx Instructions PO .COMPLEX PRN (Reason: joint pain flare) Qty: 30 1RF Rx Instructions: take 1 or 2 tab daily for 3-7 days prn joint pain flare/pt inst to watch sugars while taking. PO PRN; sumatriptan succinate 100 mg tablet See Rx Instructions PO .COMPLEX Qty: 10 5RF Rx Instructions: take 1 tab at onset of headache; if no relief, may repeat 1 tab after at least 2 hrs; max = 2 tabs/24 hrs PO Emgality Pen 120 mg/mL pen injector 240 mg SUBCUT ONCE Qty: 2 0RF Emgality Pen 120 mg/mL pen injector 120 mg SUBCUT Q30D Qty: 1 11RF (DME) autoPAP 7-11 cm mmHg setting machine, with mask, tubing and supplies See Rx Instructions .ROUTE .MEDSUPPLY Qty: 1 0RF Rx Instructions: As directed pantoprazole 40 mg tablet,delayed release (DR/EC) 40 mg PO BID PRN (Reason: Acid Reflux) Qty: 60 0RF atorvastatin 20 mg tablet 20 mg PO DAILY Qty: 90 0RF oxycodone-acetaminophen [Percocet] 10-325 mg tablet 1 tab PO Q6H PRN (Reason: pain) 30 Days Qty: 120 0RF isosorbide mononitrate 30 mg tablet extended release 24 hr 30 mg PO DAILY Qty: 90 1RF Entresto 49-51 mg tablet 1 tab PO BID Qty: 180 1RF oxcarbazepine 300 mg tablet 300 mg PO BID Qty: 14 0RF Rx Instructions: along with 150mg [id number] total oxcarbazepine 150 mg tablet 150 mg PO BID Qty: 14 0RF Rx Instructions: along with 300mg [id number] total buspirone 30 mg tablet 30 mg PO BID acetaminophen [Tylenol] 325 mg Tablet 650 mg PO QID PRN (Reason: Fever Or Pain) hydroxyzine pamoate 50 mg capsule 50 mg PO QID PRN (Reason: anxiety ) vilazodone 20 mg tablet 30 mg PO QAM levothyroxine 25 mcg tablet 25 mcg PO QAM Rx Instructions: along with 200mcg [id number] total Discharge Orders: Discharge ED (Routine); Ordered 08/21/25 Ordered By: Nica Woodard Referrals: Elan Kuhn MD [Primary Care Provider, Family Practice] Discharge Diet: As Directed Discharge Activity: Resume usual activity Patient Instructions: Potassium Content of Foods List (ED), Patient Portal & Vania Instructions Activity Restrictions/Additional Instructions: - Call Dr. Callejas office when they open Tuesday morning, for potassium follow-up. - You have been given information regarding foods that are higher in potassium - At the pharmacy: Potassium chloride. This is a lower dose to go with your Bumex. The rest your compensation will need to be by diet, and followed by your primary care. - You did receive 60 mill equivalents here of potassium. You will be sent home with more potassium. - Return to ED if you do actually have any symptoms with muscle pain, and weakness, fever greater than 100.4 ?F Thank you for choosing [facility] for your healthcare needs today. You have been screened and evaluated and felt safe for discharge. Health conditions do change or evolve sometimes and as such it is important that you follow up with your Primary Doctor to be re checked, 3-5 days is a general good time frame for follow up. You are always welcome to return to the ED for re assessment if your symptoms are worsening or you have new concerns Print Language: Swiss Coding Level of Care Code ED Equipment Application Specialist for Chao Monsalve
[2025-08-21 17:01] VITALS: BP 120/83; PULSE 83; O2SAT 96
[2025-08-21 17:03] LABS: Hematocrit 38.0 % (36-47); Hemoglobin 13.10 g/dL (11.27-16.99); Mean Corpuscular HGB Conc 34.5 g/dL (30-55); Mean Corpuscular Hemoglobin 28.5 pg (27-33); Mean Corpuscular Volume 82.6 fl (85-98); Nucleated Red Blood Cells % 0 %; Platelet Count 392 10^3/cmm (157-399); Red Blood Count 4.60 10^6/uL (3.85-5.65); White Blood Count 9.12 10^3/uL (3.29-11.43)
[2025-08-21 17:21] LABS: Alanine Aminotransferase 17 U/L (0-33); Albumin Level 4.3 g/dL (3.5-5.2); Alkaline Phosphatase 104 U/L (35-105); Anion Gap 18.9 (5-19); Aspartate Amino Transferase 14 U/L (0-32); Blood Urea Nitrogen 9 mg/dL (6-20); Calcium 8.9 mg/dL (8.5-10.5); Carbon Dioxide 24 mmol/L (22-29); Chloride 95 mmol/L (98-107); Globulin 3.1 g/dL (1.3-4.6); Glucose 126 mg/dL (65-115); Magnesium 1.9 mg/dL (1.7-2.3); Osmolality Calculated 280 mOsm/kg (285-295); Sodium 135 mmol/L (136-145); Total Protein 7.4 g/dL (6.6-8.7)
[2025-08-21] MEDS: lidocaine 1% 5 ML in potassium chloride premix 100 ML 52.5 ML IV (17:29)
[2025-08-21 17:30] LABS: Potassium 2.9 mmol/L (3.5-5.1)
[2025-08-21 19:37] VITALS: BP 126/73; PULSE 81; O2SAT 97
== END 2025-08-21 19:38 | disposition home or self-care (01) ==
PROVIDERS: Physician Assistant; Emergency Provider Physician Assistant; PCP Family Medicine
DX: E87.6 Hypokalemia (principal); Z79.4 Long term (current) use of insulin; Z87.891 Personal history of nicotine dependence; E11.9 Type 2 diabetes mellitus without complications; E78.2 Mixed hyperlipidemia; I11.0 Hypertensive heart disease with heart failure; I50.20 Unspecified systolic (congestive) heart failure; J44.9 Chronic obstructive pulmonary disease, unspecified
CPT/HCPCS: 36415; 80053; 83735; 85025; 99283; J3480; J9999

== ENCOUNTER 2025-08-28 08:44 | Oncology outpatient (recurring) (ONCR) | payer OTHER, MEDICAID, SELFPAY ==
[2025-06-21 10:49] VITALS: BP 143/94; BMI 45.6
--- NOTE | 2025-08-16 | CTR_ITS ---
PROCEDURE INFORMATION: Exam: CT Lumbar Spine Without Contrast Exam date and time: 08/16/2025 1:12 PM Age: 45 years old Clinical indication: Low back pain; Prior surgery; Surgery date: 1-6 months; Surgery type: Lumbar; Additional info: Post op pain TECHNIQUE: Imaging protocol: Computed tomography of the lumbar spine without contrast. Radiation optimization: All CT scans at this facility use at least one of these dose optimization techniques: automated exposure control; mA and/or kV adjustment per patient size (includes targeted exams where dose is matched to clinical indication); or iterative reconstruction. COMPARISON: MR lumbar spine wo/w con [id number] 04/10/2025 3:50 PM RADIATION DOSE METRICS: Total DLP (mGy-cm): 1236.93 FINDINGS: Bones/joints: There is no acute lumbosacral spine fracture or traumatic subluxation. There are posterior transforaminal lumbar interbody fusion and decompression hardware at L4-L5. The hardware are intact including bilateral transpedicular screws and vertical stabilizing rods. There is no evidence for complication. There is an interbody spacer seen. There is no evidence for osseous fusion of L4 or L5 at this time. Since the prior MRI of 04/10/2025, there has been no significant interval change. Post laminectomy decompressive changes are seen. Soft tissues: Unremarkable. CT/CT lumbar spine wo con* [id number] IMPRESSION: 1. No acute fracture or traumatic subluxation. 2. Status post fusion at L4-L5 without evidence for complication. Post laminectomy changes are seen.
[2025-08-28] MEDS: diphenhydrAMINE 50 mg/mL SDV 1mL 25 MG IVP (09:47)
[2025-08-28] MEDS: methylPREDNISolone sod succ 125 mg/2 mL INJ IVP (09:53)
[2025-08-28 11:25] VITALS: BP 99/72; PULSE 84; RESP 17; TEMP 36.2; O2SAT 97
[2025-08-28 11:55] VITALS: BP 111/67; PULSE 78; RESP 16; TEMP 36.6; O2SAT 96
[2025-08-28 12:28] VITALS: BP 115/67; PULSE 79; RESP 17; TEMP 36.6; O2SAT 94
[2025-08-28 14:18] VITALS: BP 115/67; PULSE 89; RESP 18; TEMP 36.5; O2SAT 96
== END 2025-08-28 23:59 | disposition home or self-care (01) ==
PROVIDERS: PCP Family Medicine; Visit Provider Internal Medicine Rheumatology
DX: M32.9 Systemic lupus erythematosus, unspecified (principal); Z79.899 Other long term (current) drug therapy
CPT/HCPCS: 72131; 96375; 96413; 96415; J1200; J2919; J7040; J7050; J9312; J9999